=== PATIENT | female | born 1980 | race Caucasian/White ===

== ENCOUNTER 2018-08-04 22:33 | Emergency (ER) | payer BC ==
[~2018-08-04] VITALS: Ht 162.6 cm; Wt 88.7 kg
[2018-08-04] MEDS ORDERED: DESV100T PO (23:02)
[2018-08-04] MEDS ORDERED: PANT40TA3 PO (23:02)
[2018-08-04] MEDS ORDERED: lantus SQ (23:02)
[2018-08-04] MEDS ORDERED: humalog (23:02)
[2018-08-04] MEDS ORDERED: GLYB2.5T2 PO (23:02)
[2018-08-04] MEDS ORDERED: klonopin (23:02)
[2018-08-04] MEDS ORDERED: IV NORMAL SALINE 1,000ML 1,000 ML IV SCH (23:30)
[2018-08-04 23:31] LABS: BILIRUBIN,URINE NEG (NEG); CLARITY,URINE CLEAR; COLOR,URINE STRAW; GLUCOSE,URINE >=1000 mg/dL (NEG)
[2018-08-04 23:32] LABS: BACTERIA,URINE FEW /HPF (0-FEW); NITRITE,URINE NEG (NEG); RBC,URINE 0 /HPF (0-2); SQUAMOUS EPITHELIAL CELL,UR FEW /LPF; UROBILINOGEN,URINE 0.2 mg/dL (0.2 mg/dL); WBC,URINE OCC /HPF (0-4)
--- NOTE | 2018-08-05 00:07 | PHYS DOC ---
Adult General Chief Complaint Chief Complaint: ABDOMINAL PAIN HPI HPI Patient is a 38 year old female who presents with complaint of upper abdominal pain. Patient states her symptoms started earlier today. Patient states that she was recently hospitalized at [facility] for treatment of hyperglycemia. The patient states that she is type II diabetic and is currently on both oral medication and insulin. Patient has had history of diabetic complications requiring admission to the hospital for control of her sugar. This patient states that when her blood sugars run high she typically will get symptoms of upper abdominal pain. Her current pain is similar to previous episodes. Patient states the pain remains in her upper abdomen. Denies any known history of pancreatitis. No fevers. Patient does have nausea. Review of Systems Review of Systems Constitutional: Denies fever or chills [] Eyes: Denies change in visual acuity, redness, or eye pain [] HENT: Denies nasal congestion or sore throat [] Respiratory: Denies cough or shortness of breath [] Cardiovascular: Denies chest pain or edema[] GI: Abdominal pain, nausea, denies diarrhea[] : Denies dysuria or hematuria [] Musculoskeletal: Denies back pain or joint pain [] Integument: Denies rash or skin lesions [] Neurologic: Denies headache, focal weakness or sensory changes [] All other systems were reviewed and found to be within normal limits, except as documented in this note. Current Medications Current Medications Current Medications Medications (Trade) Dose Ordered Sig/Yoko Start Time Stop Time Status Last Admin Dose Admin Sodium Chloride 1,000 ml @ 1,000 mls/hr Q1H 08/04/18 23:30 08/05/18 00:29 Allergies Allergies Allergies Coded Allergies Type Severity Reaction Last Updated Verified No Known Drug Allergies 08/04/18 No Physical Exam Physical Exam Constitutional: Alert, afebrile, appears in [id number] discomfort. [] HENT: Normocephalic, atraumatic, bilateral external ears normal, oropharynx moist, no oral exudates, nose normal. [] Eyes: PERRLA, EOMI, conjunctiva normal, no discharge. [] Neck: Normal range of motion, no tenderness, supple, no stridor. [] Cardiovascular: Tachycardia, regular rhythm, no murmur [] Lungs & Thorax: Bilateral breath sounds clear to auscultation [] Abdomen: Bowel sounds normal, soft, epigastric tenderness to palpation, no guarding or rebound tenderness, no masses, no pulsatile masses. [] Skin: Warm, dry, no erythema, no rash. [] Back: No tenderness, no CVA tenderness. [] Extremities: No tenderness, no cyanosis, no clubbing, ROM intact, no edema. [] Neurologic: Alert and oriented X 3, normal motor function, normal sensory function, no focal deficits noted. [] Current Patient Data Vital Signs Vital Signs Date Time Temp Pulse Resp B/P (MAP) Pulse Ox O2 Delivery O2 Flow Rate FiO2 08/04/18 22:40 97.9 125 22 98 Room Air Lab Results Laboratory Tests Test 08/04/18 22:56 08/04/18 23:10 08/04/18 23:59 08/05/18 03:11 Glucose (Fingerstick) 556 mg/dL 230 mg/dL Urine Collection Type Void Urine Color Straw Urine Clarity Clear Urine pH 5.5 Urine Specific Nettie 1.010 Urine Protein Neg Urine Glucose (UA) >=1000 mg/dL Urine Ketones (Stick) Neg mg/dL Urine Blood Neg Urine Nitrite Neg Urine Bilirubin Neg Urine Urobilinogen Dipstick 0.2 mg/dL Urine Leukocyte Esterase Neg Urine RBC 0 /HPF Urine WBC Occ /HPF Urine Squamous Epithelial Cells Few /LPF Urine Transitional Epithelial Cells Occ /LPF Urine Renal Epithelial Cells Occ /LPF Urine Bacteria Few /HPF White Blood Count 13.4 x10^3/uL Red Blood Count 4.82 x10^6/uL Hemoglobin 14.9 g/dL Hematocrit 44.8 % Mean Corpuscular Volume 93 fL Mean Corpuscular Hemoglobin 31 pg Mean Corpuscular Hemoglobin Concent 33 g/dL Red Cell Distribution Width 15.3 % Platelet Count 256 x10^3/uL Neutrophils (%) (Auto) 66 % Lymphocytes (%) (Auto) 29 % Monocytes (%) (Auto) 5 % Neutrophils # (Auto) 8.8 x10^3uL Lymphocytes # (Auto) 4.0 x10^3/uL Monocytes # (Auto) 0.6 x10^3/uL Sodium Level 133 mmol/L Potassium Level 4.2 mmol/L Chloride Level 99 mmol/L Carbon Dioxide Level 27 mmol/L Anion Gap 7 Blood Urea Nitrogen 18 mg/dL Creatinine 1.1 mg/dL Estimated GFR (Cockcroft-Gault) 55.6 BUN/Creatinine Ratio 16 Glucose Level 533 mg/dL Calcium Level 9.3 mg/dL Total Bilirubin 0.6 mg/dL Aspartate Amino Transf (AST/SGOT) 46 U/L Alanine Aminotransferase (ALT/SGPT) 123 U/L Alkaline Phosphatase 109 U/L Total Protein 7.2 g/dL Albumin 3.4 g/dL Albumin/Globulin Ratio 0.9 Lipase 199 U/L Current Medications Medications (Trade) Dose Ordered Sig/Yoko Route PRN Reason Start Time Stop Time Status Last Admin Dose Admin Sodium Chloride 1,000 ml @ 1,000 mls/hr Q1H IV 08/04/18 23:30 08/05/18 00:29 DC 08/05/18 00:01 Sodium Chloride 1,000 ml @ 1,000 mls/hr 1X ONCE IV 08/05/18 00:30 08/05/18 01:29 DC 08/05/18 00:57 Morphine Sulfate (Morphine 4mg Syringe) 4 mg 1X ONCE IV 08/05/18 00:30 08/05/18 00:34 DC 08/05/18 00:32 Ondansetron HCl (Zofran) 4 mg 1X ONCE IV 08/05/18 00:30 08/05/18 00:34 DC 08/05/18 00:32 Insulin Human Regular (HumuLIN R VIAL) 10 unit 1X ONCE IV 08/05/18 01:30 08/05/18 01:31 DC 08/05/18 01:25 Ketorolac Tromethamine (Toradol 30mg Vial) 30 mg 1X ONCE IV 08/05/18 02:00 08/05/18 02:01 DC 08/05/18 01:39 EKG EKG Not performed[] Radiology/Procedures Radiology/Procedures Not performed[] Course & Med Decision Making Course & Med Decision Making Pertinent Labs and Imaging studies reviewed. (See chart for details) Patient was treated with 2 L of IV fluids and given 10 units of IV insulin. Patient's pain was treated with IV morphine and Toradol. On reevaluation, patient states her symptoms are much better and she appears to be comfortable at this time. Blood sugar is decreased to 230. Patient at this time is appropriate for outpatient therapy. Recommended to hold Lantus dose this evening due to additional doses of insulin being given. Advised to resume Lantus regimen tomorrow evening and to continue her home sliding scale treatment. Recommended follow-up in the next 3-5 days with patient's primary doctor and return to emergency department for any worsening symptoms. Patient voiced understanding and in agreement with treatment plan. Dragon Disclaimer Dragon Disclaimer This electronic medical record was generated, in whole or in part, using a voice recognition dictation system. Departure Departure: Impression: Primary Impression: Diabetes mellitus Disposition: HOME, SELF-CARE Condition: IMPROVED Referrals: EDIE MILLER (PCP) Patient Instructions: Type 2 Diabetes Mellitus, Adult Additional Instructions: Follow-up with your primary doctor in 3-5 days for reevaluation. Return to the emergency department for any worsening symptoms. Problem Qualifiers Primary Impression: Diabetes mellitus Diabetes mellitus type: type 2 Diabetes mellitus [facility] insulin use: with [facility] use Diabetes mellitus complication status: with hyperglycemia Qualified Codes: E11.65 - Type 2 diabetes mellitus with hyperglycemia; Z79.4 - [employer] (current) use of insulin HAI GAINES MD Aug 05, 2018 00:07
[2018-08-05 00:15] VITALS: BP 115/69
[2018-08-05] MEDS ORDERED: IV NORMAL SALINE 1,000ML 1,000 ML IV ONE (00:30)
[2018-08-05] MEDS ORDERED: ONDANSETRON PF 4 MG/2 ML VIAL. IV ONE (00:30)
[2018-08-05] MEDS ORDERED: MORPHINE SULFATE 4 MG/ML DISP.SYRIN. IV ONE (00:30)
[2018-08-05 00:43] LABS: HEMATOCRIT 44.8 % (36.0-47.0); HEMOGLOBIN 14.9 g/dL (12.0-15.5); MEAN CORPUSCULAR HEMOGLOBIN 31 pg (25-35); MEAN CORPUSCULAR HGB CONC 33 g/dL (31-37); MEAN CORPUSCULAR VOLUME 93 fL (79-100); PLATELET COUNT 256 x10^3/uL (140-400); RED BLOOD COUNT 4.82 x10^6/uL (3.50-5.40); RED CELL DISTRIBUTION WIDTH 15.3 % (11.5-14.5); WHITE BLOOD COUNT 13.4 x10^3/uL (4.0-11.0)
[2018-08-05 00:44] LABS: LYMPH % 29 % (24-48); MONO # 0.6 x10^3/uL (0.0-1.1); MONO % 5 % (0-9); NEUT # 8.8 x10^3uL (1.8-7.7); NEUT % 66 % (31-73)
[2018-08-05 00:51] LABS: ALBUMIN 3.4 g/dL (3.4-5.0); ALBUMIN/GLOBULIN RATIO 0.9 (1.0-1.7); CALCIUM 9.3 mg/dL (8.5-10.1); CREATININE 1.1 mg/dL (0.6-1.0); GFR 55.6; POTASSIUM 4.2 mmol/L (3.5-5.1); TOTAL BILIRUBIN 0.6 mg/dL (0.2-1.0); TOTAL PROTEIN 7.2 g/dL (6.4-8.2)
[2018-08-05] MEDS ORDERED: INSULIN REGULAR 100 UNIT/ML 3ML VIAL. IV ONE (01:30)
[2018-08-05] MEDS ORDERED: KETOROLAC 30 MG/ML VIAL. IV ONE (02:00)
== END 2018-08-05 03:42 | disposition home or self-care (01) ==
LOC: ER 22:33
DX: E11.65 Type 2 diabetes mellitus with hyperglycemia (principal); R10.13 Epigastric pain; Z79.4 Long term (current) use of insulin
CPT/HCPCS: 36415; 80053; 81001; 82947; 83690; 85025; 96361; 96374; 96375; 99284; J1815; J1885; J2270; J2405; J7030

== ENCOUNTER 2018-08-19 01:52 | Emergency (ER) | payer BC ==
[~2018-08-19] VITALS: Ht 162.6 cm; Wt 90.9 kg
[~2018-08-19 01:52] MED LIST: DESV100T PO; GLYB2.5T2 PO; PANT40TA3 PO; humalog; klonopin; lantus SQ
--- NOTE | 2018-08-19 01:54 | ED.ADGEN ---
Past History Past Medical History: Anxiety, Depression, Diabetes, Gallstones, GERD, Other Past Surgical History: Cholecystectomy, Hysterectomy, Tonsillectomy Alcohol Use: None Drug Use: None Adult General Chief Complaint Chief Complaint ".. I ve got abdomen pain...".. " Down here on the Rt... it been constant the last 2 hrs.. ".. " My blood sugars... are high.. " HPI HPI Patient is a 38 year old female who presents with above hx and complaints of 7 out of 10 right lower abdomen pain. Patient pain is been present 2 hours. Patient last ate at 1700 hrs. which consisted of chili. Patient reports normal stools. Patient denies any trauma or specific ill contacts. No recent travel. No history of bad food. Patient had multiple abdomen surgeries consisting of cholecystectomy and hysterectomy and oophorectomy. Pt. has possible hx prior renal stone. Patient does have a slight scale for her insulin. Review of Systems Review of Systems Constitutional: Denies fever or chills [] Eyes: Denies change in visual acuity, redness, or eye pain [] HENT: Denies nasal congestion or sore throat [] Respiratory: Denies cough or shortness of breath [] Cardiovascular: No additional information not addressed in HPI [] GI: Complaints of Rt. lower abdominal pain, nausea. denies, vomiting, bloody stools or diarrhea [] : Denies dysuria or hematuria [] Musculoskeletal: Denies back pain or joint pain [] Integument: Denies rash or skin lesions [] Neurologic: Denies headache, focal weakness or sensory changes [] Endocrine: Denies polyuria or polydipsia [] All other systems were reviewed and found to be within normal limits, except as documented in this note. Family History Family History Noncontributory Current Medications Current Medications Current Medications Medications (Trade) Dose Ordered Sig/Yoko Start Time Stop Time Status Last Admin Dose Admin Famotidine (Pepcid Vial) 20 mg 1X ONCE 08/19/18 02:30 08/19/18 02:31 DC 08/19/18 02:36 20 MG Ketorolac Tromethamine (Toradol 30mg Vial) 30 mg 1X ONCE 08/19/18 03:30 08/19/18 03:31 DC 08/19/18 03:31 30 MG Lactated Ringer's 1,000 ml @ 1,000 mls/hr Q1H 08/19/18 02:30 08/19/18 03:29 DC 08/19/18 02:36 1,000 MLS/HR Magnesium Hydroxide (Milk Of Magnesia) 2,400 mg 1X ONCE 08/19/18 03:30 08/19/18 03:31 DC 08/19/18 03:31 2,400 MG Ondansetron HCl (Zofran) 8 mg 1X ONCE 08/19/18 02:30 08/19/18 02:31 DC 08/19/18 02:37 8 MG See nursing for home meds Allergies Allergies Allergies Coded Allergies Type Severity Reaction Last Updated Verified No Known Drug Allergies 08/04/18 No Physical Exam Physical Exam Constitutional: Moderately acute distress, non-toxic appearance. [] HENT: Normocephalic, atraumatic, bilateral external ears normal, oropharynx moist, no oral exudates, nose normal. [] Eyes: PERRLA, EOMI, conjunctiva normal, no discharge. [] Neck: Normal range of motion, no tenderness, supple, no stridor. More than 17 inches circumference Cardiovascular: Tachycardia Heart rate regular rhythm, no murmur [] Lungs & Thorax: Bilateral breath sounds equal at apex with scattered wheezes on auscultation [] Abdomen: Bowel sounds decreased, soft, right lower quadrant tenderness, some mild percussion right flank tenderness, no masses, no pulsatile masses. [] Distended. Multiple old surgery scars. Rebound to right lower quadrant. Morbid obesity. Skin: Warm, dry, no erythema, no rash. [] Old surgery scars for Hidradenitis Suppurativa. Back: No tenderness, no CVA tenderness. [] Extremities: No tenderness, no cyanosis, no clubbing, ROM intact, bilateral ankle edema. [] Neurologic: Alert and oriented X 3, normal motor function, normal sensory function, no focal deficits noted. [] Psychologic: Affect anxious, judgement normal, mood normal. [] Current Patient Data Vital Signs Vital Signs Date Time Temp Pulse Resp B/P (MAP) Pulse Ox O2 Delivery O2 Flow Rate FiO2 08/19/18 02:00 98.1 104 22 99 Room Air Lab Results Laboratory Tests Test 08/19/18 02:05 08/19/18 02:23 08/19/18 03:59 Urine Collection Type Void Urine Color Yellow Urine Clarity Clear Urine pH 5.0 Urine Specific [place] 1.010 Urine Protein Neg (NEG-TRACE) Urine Glucose (UA) >=1000 mg/dL (NEG) Urine Ketones (Stick) Neg mg/dL (NEG) Urine Blood Trace (NEG) Urine Nitrite Neg (NEG) Urine Bilirubin Neg (NEG) Urine Urobilinogen Dipstick 0.2 mg/dL (0.2 mg/dL) Urine Leukocyte Esterase Neg (NEG) Urine RBC 6-10 /HPF (0-2) Urine WBC Occ /HPF (0-4) Urine Squamous Epithelial Cells Occ /LPF Urine Bacteria Few /HPF (0-FEW) Urine Mucus Slight /LPF Urine Opiates Screen Neg (NEG) Urine Methadone Screen Neg (NEG) Urine Barbiturates Neg (NEG) Urine Phencyclidine Screen Neg (NEG) Urine Amphetamine/Methamphetamine Neg (NEG) Urine Benzodiazepines Screen Neg (NEG) Urine Cocaine Screen Neg (NEG) Urine Cannabinoids Screen Neg (NEG) Urine Ethyl Alcohol Neg (NEG) White Blood Count 9.2 x10^3/uL (4.0-11.0) Red Blood Count 4.46 x10^6/uL (3.50-5.40) Hemoglobin 13.9 g/dL (12.0-15.5) Hematocrit 40.5 % (36.0-47.0) Mean Corpuscular Volume 91 fL (79-100) Mean Corpuscular Hemoglobin 31 pg (25-35) Mean Corpuscular Hemoglobin Concent 34 g/dL (31-37) Red Cell Distribution Width 15.5 % (11.5-14.5) H Platelet Count 208 x10^3/uL (140-400) Neutrophils (%) (Auto) 60 % (31-73) Lymphocytes (%) (Auto) 30 % (24-48) Monocytes (%) (Auto) 8 % (0-9) Eosinophils (%) (Auto) 2 % (0-3) Basophils (%) (Auto) 1 % (0-3) Neutrophils # (Auto) 5.5 x10^3uL (1.8-7.7) Lymphocytes # (Auto) 2.7 x10^3/uL (1.0-4.8) Monocytes # (Auto) 0.7 x10^3/uL (0.0-1.1) Eosinophils # (Auto) 0.2 x10^3/uL (0.0-0.7) Basophils # (Auto) 0.1 x10^3/uL (0.0-0.2) Prothrombin Time 10.4 SEC (9.4-11.4) Prothrombin Time INR 1.0 (0.9-1.1) PTT 24 SEC (23-33) Sodium Level 133 mmol/L (136-145) L Potassium Level 3.4 mmol/L (3.5-5.1) L Chloride Level 99 mmol/L (98-107) Carbon Dioxide Level 28 mmol/L (21-32) Anion Gap 6 (6-14) Blood Urea Nitrogen 9 mg/dL (7-20) Creatinine 1.0 mg/dL (0.6-1.0) Estimated GFR (Cockcroft-Gault) 62.1 Glucose Level 430 mg/dL (70-99) H Calcium Level 9.0 mg/dL (8.5-10.1) Total Bilirubin 0.5 mg/dL (0.2-1.0) Direct Bilirubin 0.1 mg/dL (0.0-0.2) Aspartate Amino Transferase (AST) 43 U/L (15-37) H Alanine Aminotransferase (ALT) 106 U/L (14-59) H Alkaline Phosphatase 100 U/L (46-116) Creatine Kinase 83 U/L (26-192) Troponin I Quantitative < 0.017 ng/mL (0-0.055) Total Protein 7.2 g/dL (6.4-8.2) Albumin 3.4 g/dL (3.4-5.0) Amylase Level 15 U/L (25-115) L Lipase 161 U/L (73-393) Glucose (Fingerstick) 228 mg/dL (70-99) H EKG EKG [] Radiology/Procedures Radiology/Procedures My interpretation of acute abdomen film shows no acute cardiopulmonary findings. No free air in the diaphragm. Increased stool throughout colon. Clips from previous surgeries. CT of abdomen shows no hydronephrosis. No obvious abscess. Normal appearance of the appendix. Does have a left adrenal adenoma. There is some enlargement of spleen and liver. See formal report when available. [] Course & Med Decision Making Course & Med Decision Making Pertinent Labs and Imaging studies reviewed. (See chart for details). Patient stay on a clear fluid diet. Patient push fruit juices with high potassium foods. Patient to take Tylenol and ibuprofen for pain. Patient follow- up primary care. Patient to continue insulin as per sliding scale and previous directions. Patient to follow-up primary care and review labs and x-ray findings. Patient return if any concerns. [] Final Impression Final Impression 1. Abdomen Pain[]- Rt. Lower 2. Constipation 3. DM - 430 Recheck 228. 4. Hyponatremia and Hypokalemia 5. Lt. Adrenal Myelolipoma 6. Hepatosplenomegaly 7. Mild hyponatremia 133- 8. Mild Hypokalemia 3.4 Dragon Disclaimer Dragon Disclaimer This electronic medical record was generated, in whole or in part, using a voice recognition dictation system. RICKIE LAMB MD Aug 19, 2018 01:54
[2018-08-19] MEDS: FAMOTIDINE 20 MG/2 ML VIAL IVP ONE (02:36)
[2018-08-19] MEDS: IV RINGERS SOLUTION,LACTATED 1,000 ML IV SCH (02:36)
[2018-08-19] MEDS: ONDANSETRON PF 4 MG/2 ML VIAL. IV ONE (02:37)
[2018-08-19 02:43] LABS: BASO # 0.1 x10^3/uL (0.0-0.2); BASO % 1 % (0-3); EOS # 0.2 x10^3/uL (0.0-0.7); EOS % 2 % (0-3); HEMATOCRIT 40.5 % (36.0-47.0); HEMOGLOBIN 13.9 g/dL (12.0-15.5); LYMPH # 2.7 x10^3/uL (1.0-4.8); LYMPH % 30 % (24-48); MEAN CORPUSCULAR HEMOGLOBIN 31 pg (25-35); MEAN CORPUSCULAR HGB CONC 34 g/dL (31-37); MEAN CORPUSCULAR VOLUME 91 fL (79-100); MONO # 0.7 x10^3/uL (0.0-1.1); MONO % 8 % (0-9); NEUT # 5.5 x10^3uL (1.8-7.7); NEUT % 60 % (31-73); PLATELET COUNT 208 x10^3/uL (140-400); RED BLOOD COUNT 4.46 x10^6/uL (3.50-5.40); RED CELL DISTRIBUTION WIDTH 15.5 % (11.5-14.5); WHITE BLOOD COUNT 9.2 x10^3/uL (4.0-11.0)
[2018-08-19 02:49] LABS: CLARITY,URINE CLEAR; COLOR,URINE YELLOW; GLUCOSE,URINE >=1000 mg/dL (NEG)
[2018-08-19 02:50] LABS: BACTERIA,URINE FEW /HPF (0-FEW); BILIRUBIN,URINE NEG (NEG); NITRITE,URINE NEG (NEG); SQUAMOUS EPITHELIAL CELL,UR OCC /LPF; UROBILINOGEN,URINE 0.2 mg/dL (0.2 mg/dL); WBC,URINE OCC /HPF (0-4)
[2018-08-19 02:54] LABS: BARBITURATES NEG (NEG); BENZODIAZEPINES NEG (NEG); CANNABINOIDS NEG (NEG); COCAINE NEG (NEG); METHADONE NEG (NEG); OPIATES NEG (NEG); PHENCYCLIDINE NEG (NEG)
[2018-08-19 02:56] LABS: ALBUMIN 3.4 g/dL (3.4-5.0); DIRECT BILIRUBIN 0.1 mg/dL (0.0-0.2); GFR 62.1; POTASSIUM 3.4 mmol/L (3.5-5.1); TOTAL BILIRUBIN 0.5 mg/dL (0.2-1.0); TOTAL PROTEIN 7.2 g/dL (6.4-8.2)
[2018-08-19 02:57] LABS: AMPHETAMINE/METHAMPHETAMINE NEG (NEG)
[2018-08-19] MEDS: KETOROLAC 30 MG/ML VIAL. IV ONE (03:31)
[2018-08-19] MEDS: MAGNESIUM HYDROXIDE 2,400 MG/30 ML ORAL.SUSP. PO ONE (03:31)
--- NOTE | 2018-08-19 03:43 | RAD ---
PQRS Compliance Statement: One or more of the following individualized dose reduction techniques were utilized for this examination: 1. Automated exposure control 2. Adjustment of the mA and/or kV according to patient size 3. Use of iterative reconstruction technique CT ABDOMEN PELVIS WO CONTRAST Clinical Indication: Right flank pain Comparison: None. Technique: Helical CT imaging of the abdomen and pelvis is performed without IV or oral contrast. Findings: Evaluation of solid organs and bowel is limited without oral and IV contrast, decreasing sensitivity for detection of pathology. The lung bases are clear. Cardiac size normal. Right hepatic lobe measures 23.6 cm. Right hepatic lobe is enlarged versus normal variant Jaxson lobe. Cholecystectomy. Spleen is mildly enlarged measuring 13.6 cm. Pancreas, abdominal aorta, and right adrenal gland are normal. There is a 2.8 cm left adrenal gland nodule that contains macroscopic fat, most compatible with a myelolipoma. There is no renal, ureteral, or bladder calculus. No perinephric stranding or hydronephrosis. No urinary bladder wall thickening. Heterogeneous material in the stomach, correlate to recent ingestions. No dilated small bowel. Redundant sigmoid colon. There is no colon wall thickening. There is moderate stool in the proximal colon. The appendix is normal. There are subcentimeter retroperitoneal lymph nodes. There is no adenopathy. No abdominal free fluid. Hysterectomy. No pelvic free fluid. Bones unremarkable. IMPRESSION: 1. No acute abdominal or pelvic abnormality. No obstructive uropathy. 2. Hepatosplenomegaly. 3. Left adrenal myelolipoma. Electronically signed by: Arun Cavanaugh MD (08/19/2018 3:39 AM) [id number]
[2018-08-19 04:00] VITALS: BP 134/72
--- NOTE | 2018-08-19 04:42 | RAD ---
ACUTE ABDOMEN SERIES History: Chest and abdominal pain. Comparison: None. Findings: Frontal chest and supine and upright views of the abdomen. Cardiomediastinal silhouette is normal. There is no pleural effusion or pneumothorax. The lungs are clear. No pneumoperitoneum is identified. No dilated air-filled loops of bowel are seen. Bowel gas pattern is nonobstructive. Cholecystectomy. There is prominent stool in the ascending and transverse colon. There are nondilated small bowel loops in the pelvis. There is hepatosplenomegaly. Bones unremarkable. IMPRESSION: 1. No acute cardiopulmonary process. 2. Nonobstructive bowel gas pattern. 3. Moderate stool in the proximal colon. Correlate for constipation. 4. Hepatosplenomegaly. Electronically signed by: Arun Cavanaugh MD (08/19/2018 4:39 AM) [id number]
== END 2018-08-19 04:12 | disposition home or self-care (01) ==
LOC: ER 01:52
DX: K59.00 Constipation, unspecified (principal); E11.9 Type 2 diabetes mellitus without complications; E87.1 Hypo-osmolality and hyponatremia; E87.6 Hypokalemia; D17.79 Benign lipomatous neoplasm of other sites; R16.2 Hepatomegaly with splenomegaly, not elsewhere classified; F41.9 Anxiety disorder, unspecified; F32.9 Major depressive disorder, single episode, unspecified; Z90.49 Acquired absence of other specified parts of digestive tract; Z90.710 Acquired absence of both cervix and uterus
CPT/HCPCS: 36415; 74022; 74176; 80048; 80076; 80307; 81001; 82150; 82550; 82947; 83690; 84484; 85025; 85610; 85730; 96374; 96375; 99285; J1885; J2405; J3490; J7120

== ENCOUNTER 2018-08-26 19:52 | Emergency (ER) | payer BC ==
[~2018-08-26] VITALS: Ht 162.6 cm; Wt 88.5 kg
--- NOTE | 2018-08-26 19:56 | ED.ADGEN ---
Past History Past Medical History: Anxiety, Depression, Diabetes, Gallstones, GERD, UTI, Other Past Surgical History: Cholecystectomy, Hysterectomy, Tonsillectomy Alcohol Use: None Drug Use: None Adult General Chief Complaint Chief Complaint ".. I ve been having abd. pain .. nausea . .vomiting .. and diarrhea ... 3 weeks.;.. it every time I eat.. really bad at 3:00 pm .. I seen Dr. French... and thought it might be my pancreas.. ..." HPI HPI Patient is a 38 year old female who presents with generalized abdomen pain. Patient reports repeated episodes of nausea and vomiting and diarrhea for the past 3 weeks. Patient denies any bad food or travel or specific ill contacts. Patient normally follows Dr. Ash.. And travel or specific ill contacts. No history of intake bad food. Patient has history of diabetes. Has had previous cholecystectomy and hysterectomy. Patient denies any trauma. Patient has been eating. Review of Systems Review of Systems Constitutional: Denies fever or chills [] Eyes: Denies change in visual acuity, redness, or eye pain [] HENT: Denies nasal congestion or sore throat [] Respiratory: Denies cough or shortness of breath [] Cardiovascular: No additional information not addressed in HPI [] GI: Complaints of generalized abdominal pain, nausea, vomiting, and diarrhea [] : Denies dysuria or hematuria [] Musculoskeletal: Denies back pain or joint pain [] Integument: Denies rash or skin lesions [] Neurologic: Denies headache, focal weakness or sensory changes [] Endocrine: Denies polyuria or polydipsia [] All other systems were reviewed and found to be within normal limits, except as documented in this note. Family History Family History Noncontributory Current Medications Current Medications Current Medications Medications (Trade) Dose Ordered Sig/Yoko Start Time Stop Time Status Last Admin Dose Admin Famotidine (Pepcid Vial) 20 mg 1X ONCE 08/26/18 20:30 08/26/18 20:31 UNV Info (Do NOT chart on this entry -- for MONITORING) 1 each PRN DAILY PRN 08/26/18 20:30 08/27/18 00:19 DC Iohexol (Omnipaque 240 Mg/ml) 30 ml 1X ONCE 08/26/18 20:30 11/17/18 20:31 DC 08/26/18 20:30 30 ML Iohexol (Omnipaque 300 Mg/ml) 75 ml 1X ONCE 08/26/18 20:30 08/26/18 20:31 DC 08/26/18 21:50 75 ML Ketorolac Tromethamine (Toradol 30mg Vial) 30 mg 1X ONCE 08/26/18 20:30 08/26/18 20:31 DC 08/26/18 20:52 30 MG Lactated Ringer's 1,000 ml @ 1,000 mls/hr Q1H 08/26/18 20:23 08/26/18 21:22 DC Morphine Sulfate (Morphine 10mg Syringe) 10 mg 1X ONCE 08/26/18 22:45 08/26/18 22:47 DC 08/26/18 22:51 10 MG Ondansetron HCl (Zofran) 8 mg 1X ONCE 08/26/18 20:30 08/26/18 20:31 UNV Pantoprazole Sodium (Protonix Vial) 40 mg 1X ONCE 08/26/18 20:00 08/26/18 20:01 DC 08/26/18 20:57 40 MG Trimethoprim/ Sulfamethoxazole (Bactrim Ds) 1 tab STK-MED ONCE 08/27/18 00:06 08/27/18 00:19 DC Allergies Allergies Allergies Coded Allergies Type Severity Reaction Last Updated Verified No Known Drug Allergies 08/26/18 No Physical Exam Physical Exam Constitutional: Moderately acute distress, non-toxic appearance. [] HENT: Normocephalic, atraumatic, bilateral external ears normal, oropharynx moist, no oral exudates, nose normal. [] Eyes: PERRLA, EOMI, conjunctiva normal, no discharge. [] Neck: Normal range of motion, no tenderness, supple, no stridor. [] Cardiovascular: Tachycardia Heart rate regular rhythm, no murmur [] Lungs & Thorax: Bilateral breath sounds clear to auscultation [] Abdomen: Bowel sounds normal, soft, generalized tenderness, no masses, no pulsatile masses. [Old surgery scar. Declines rectal exam at this time. No true rebound. Obese Skin: Warm, dry, no erythema, no rash. [] Back: No tenderness, no CVA tenderness. [] Extremities: No tenderness, no cyanosis, no clubbing, ROM intact, no edema. [] Neurologic: Alert and oriented X 3, normal motor function, normal sensory function, no focal deficits noted. [] Psychologic: Affect anxious, judgement normal, mood normal. [] Current Patient Data Vital Signs Vital Signs Date Time Temp Pulse Resp B/P (MAP) Pulse Ox O2 Delivery O2 Flow Rate FiO2 08/27/18 00:15 18 136/71 (92) 08/26/18 22:51 Room Air 08/26/18 22:26 91 96 08/26/18 20:00 98.5 Lab Results Laboratory Tests Test 08/26/18 20:25 White Blood Count 11.7 x10^3/uL (4.0-11.0) H Red Blood Count 4.59 x10^6/uL (3.50-5.40) Hemoglobin 13.9 g/dL (12.0-15.5) Hematocrit 42.0 % (36.0-47.0) Mean Corpuscular Volume 92 fL (79-100) Mean Corpuscular Hemoglobin 30 pg (25-35) Mean Corpuscular Hemoglobin Concent 33 g/dL (31-37) Red Cell Distribution Width 14.9 % (11.5-14.5) H Platelet Count 270 x10^3/uL (140-400) Neutrophils (%) (Auto) 57 % (31-73) Lymphocytes (%) (Auto) 32 % (24-48) Monocytes (%) (Auto) 9 % (0-9) Eosinophils (%) (Auto) 2 % (0-3) Basophils (%) (Auto) 1 % (0-3) Neutrophils # (Auto) 6.6 x10^3uL (1.8-7.7) Lymphocytes # (Auto) 3.7 x10^3/uL (1.0-4.8) Monocytes # (Auto) 1.0 x10^3/uL (0.0-1.1) Eosinophils # (Auto) 0.2 x10^3/uL (0.0-0.7) Basophils # (Auto) 0.1 x10^3/uL (0.0-0.2) Prothrombin Time 10.3 SEC (9.4-11.4) Prothrombin Time INR 1.0 (0.9-1.1) PTT 23 SEC (23-33) Urine Collection Type Unknown Urine Color Yellow Urine Clarity Hazy Urine pH 5.5 Urine Specific [place] >=1.030 Urine Protein Neg (NEG-TRACE) Urine Glucose (UA) 250 mg/dL (NEG) Urine Ketones (Stick) Neg mg/dL (NEG) Urine Blood Trace (NEG) Urine Nitrite Neg (NEG) Urine Bilirubin Neg (NEG) Urine Urobilinogen Dipstick 0.2 mg/dL (0.2 mg/dL) Urine Leukocyte Esterase Trace (NEG) Urine RBC 1-2 /HPF (0-2) Urine WBC 5-10 /HPF (0-4) Urine Squamous Epithelial Cells Many /LPF Urine Bacteria 0 /HPF (0-FEW) Urine Mucus Mod /LPF Sodium Level 140 mmol/L (136-145) Potassium Level 4.2 mmol/L (3.5-5.1) Chloride Level 102 mmol/L (98-107) Carbon Dioxide Level 31 mmol/L (21-32) Anion Gap 7 (6-14) Blood Urea Nitrogen 8 mg/dL (7-20) Creatinine 0.7 mg/dL (0.6-1.0) Estimated GFR (Cockcroft-Gault) 93.6 Glucose Level 224 mg/dL (70-99) H Calcium Level 9.2 mg/dL (8.5-10.1) Total Bilirubin 0.4 mg/dL (0.2-1.0) Direct Bilirubin 0.1 mg/dL (0.0-0.2) Aspartate Amino Transferase (AST) 72 U/L (15-37) H Alanine Aminotransferase (ALT) 146 U/L (14-59) H Alkaline Phosphatase 103 U/L (46-116) Creatine Kinase 100 U/L (26-192) Troponin I Quantitative < 0.017 ng/mL (0-0.055) Total Protein 7.4 g/dL (6.4-8.2) Albumin 3.5 g/dL (3.4-5.0) Amylase Level 20 U/L (25-115) L EKG EKG My interpretation EKG shows a sinus rhythm at 95 bpm. There is mild leftward axis. Ice acute STEMI of contralateral changes.[] Radiology/Procedures Radiology/Procedures CT of abdomen shows mild hepatosplenomegaly. Left adrenal myelolipoma unchanged and distended stomach.[] Course & Med Decision Making Course & Med Decision Making Pertinent Labs and Imaging studies reviewed. (See chart for details). She stay on a clear fluid diet only for 2 days. No solids or milk products. Must allow bowel rest. Follow-up primary care. Return if any concerns. Take Bactrim DS twice day for urinary tract infection. Push vitamin C drinks. Must have reexam if no improvement [] Final Impression Final Impression 1. Abdomen Pain 2. Nausea, Vomiting and Diarrhea[] 3. Diabetes 4. Leukocytosis 5. Elevated AST and ALT 6. Urinary tract infection Dragon Disclaimer Dragon Disclaimer This electronic medical record was generated, in whole or in part, using a voice recognition dictation system. RICKIE LAMB MD Aug 26, 2018 19:56
[2018-08-26] MEDS ORDERED: IV RINGERS SOLUTION,LACTATED 1,000 ML IV SCH ×2 (19:57→20:23)
[2018-08-26] MEDS ORDERED: ONDANSETRON PF 4 MG/2 ML VIAL. IV ONE ×2 (20:00→20:30)
[2018-08-26] MEDS ORDERED: FAMOTIDINE 20 MG/2 ML VIAL IVP ONE ×2 (20:00→20:30)
[2018-08-26] MEDS ORDERED: PANTOPRAZOLE IV 40 MG VIAL. IVP ONE (20:00)
[2018-08-26] MEDS ORDERED: IOHEXOL 300 MG/ML 75 ML VIAL. IV ONE (20:30)
[2018-08-26] MEDS ORDERED: CONTRAST GIVEN MC PRN (20:30)
[2018-08-26] MEDS ORDERED: IOHEXOL 240 MG/ML 50ML VIAL. PO ONE (20:30)
[2018-08-26] MEDS ORDERED: KETOROLAC 30 MG/ML VIAL. IV ONE (20:30)
[2018-08-26 20:43] LABS: BASO # 0.1 x10^3/uL (0.0-0.2); BASO % 1 % (0-3); EOS # 0.2 x10^3/uL (0.0-0.7); EOS % 2 % (0-3); HEMOGLOBIN 13.9 g/dL (12.0-15.5); LYMPH # 3.7 x10^3/uL (1.0-4.8); LYMPH % 32 % (24-48); MEAN CORPUSCULAR HEMOGLOBIN 30 pg (25-35); MEAN CORPUSCULAR HGB CONC 33 g/dL (31-37); MEAN CORPUSCULAR VOLUME 92 fL (79-100); MONO % 9 % (0-9); NEUT # 6.6 x10^3uL (1.8-7.7); NEUT % 57 % (31-73); PLATELET COUNT 270 x10^3/uL (140-400); RED BLOOD COUNT 4.59 x10^6/uL (3.50-5.40); RED CELL DISTRIBUTION WIDTH 14.9 % (11.5-14.5); WHITE BLOOD COUNT 11.7 x10^3/uL (4.0-11.0)
[2018-08-26 20:51] LABS: BACTERIA,URINE 0 /HPF (0-FEW); BILIRUBIN,URINE NEG (NEG); CLARITY,URINE HAZY; COLOR,URINE YELLOW; GLUCOSE,URINE 250 mg/dL (NEG); NITRITE,URINE NEG (NEG); SQUAMOUS EPITHELIAL CELL,UR MANY /LPF; UROBILINOGEN,URINE 0.2 mg/dL (0.2 mg/dL)
[2018-08-26 20:57] LABS: ALBUMIN 3.5 g/dL (3.4-5.0); CALCIUM 9.2 mg/dL (8.5-10.1); CREATININE 0.7 mg/dL (0.6-1.0); DIRECT BILIRUBIN 0.1 mg/dL (0.0-0.2); GFR 93.6; POTASSIUM 4.2 mmol/L (3.5-5.1); TOTAL BILIRUBIN 0.4 mg/dL (0.2-1.0); TOTAL PROTEIN 7.4 g/dL (6.4-8.2)
--- NOTE | 2018-08-26 21:31 | RAD ---
EXAM: Frontal view of the chest, AP views of the abdomen in upright and supine positions. CLINICAL INDICATION: ACUTE AB SERIES for upper mid abdominal pain severe since this afternoon COMPARISON: 08/19/2018 FINDINGS and IMPRESSION: The heart is not enlarged. Mediastinal and hilar contours are normal. No focal parenchymal airspace opacity. No pleural effusion or pneumothorax. No abnormal small or large bowel dilatation. Moderate colonic stool content. No abnormal soft tissue mass effect. No suspicious calcifications are seen. No free intraperitoneal gas. Cholecystectomy clips are seen. Electronically signed by: Jose Newman MD (08/26/2018 9:27 PM) [facility]
--- NOTE | 2018-08-26 21:37 | EKG ---
[address] [address] Test Date: 2018-08-26 Test Time: 21:13:48 Pat Name: SANFORD SEXTON Department: Room: Gender: F Fire Code Inspector: : [id number] Requested By: RICKIE LAMB Order Number: [id number] Reading MD: Peter Nunn MD Measurements Intervals [place] Rate: 95 P: -89 OK: 106 QRS: -15 QRSD: 82 T: 28 QT: 356 QTc: 451 Interpretive Statements SINUS RHYTHM Electronically Signed On 08-28-2018 14:27:08 ADMISSIONS SPECIALIST by Peter Nunn MD
--- NOTE | 2018-08-26 22:19 | RAD ---
Examination: CT of the abdomen pelvis with IV contrast HISTORY: History of upper abdominal pain COMPARISON: 08/19/2018 Technique: Axial CT images of the abdomen pelvis were performed with oral and IV contrast. Coronal and sagittal reformats are performed. Exposure: One or more of the following individualized dose reduction techniques were utilized for this examination: 1. Automated exposure control 2. Adjustment of the mA and/or kV according to patient size 3. Use of iterative reconstruction technique FINDINGS: Minimal bibasilar lung atelectasis. No evidence of free air identified in the abdomen. Mild hepatomegaly. There is mild decreased attenuation noted throughout the liver likely hepatic steatosis. The spleen is mildly enlarged. The visualized right adrenal gland grossly appears unremarkable. There is a fatty density identified in the left adrenal gland likely adrenal myelolipoma similar to prior exam. The stomach is moderately distended. Cholecystectomy clips identified. The small bowel is nondilated. Appendix is normal. Feces and gas noted in the colon. Urinary bladder is mildly distended. The bilateral kidneys enhance symmetrically. The caliber of the aorta grossly appears unremarkable. No evidence of lytic bony destructive lesion. IMPRESSION: 1. Mild hepatosplenomegaly. 2. Left adrenal myelolipoma unchanged. 3. Mild distended moderately distended stomach. Electronically signed by: Pasha Irwin MD (08/26/2018 10:16 PM) [facility]
[2018-08-26] MEDS ORDERED: MORPHINE SULFATE 10 MG/ML SYRINGE. SQ ONE (22:45)
[2018-08-27] MEDS ORDERED: SULF1TAB24 PO (00:05)
[2018-08-27] MEDS ORDERED: ONDA8TAB12 PO (00:05)
[2018-08-27] MEDS ORDERED: SMZ/TMP 800/160MG TABLET. PO ONE ×2 (00:06)
[2018-08-27 00:15] VITALS: BP 136/71
== END 2018-08-27 00:18 | disposition home or self-care (01) ==
LOC: ER 19:52
DX: N39.0 Urinary tract infection, site not specified (principal); R11.2 Nausea with vomiting, unspecified; R19.7 Diarrhea, unspecified; D72.829 Elevated white blood cell count, unspecified; F41.9 Anxiety disorder, unspecified; F32.9 Major depressive disorder, single episode, unspecified; E11.9 Type 2 diabetes mellitus without complications; K21.9 Gastro-esophageal reflux disease without esophagitis; Z87.440 Personal history of urinary (tract) infections; Z90.89 Acquired absence of other organs; Z90.49 Acquired absence of other specified parts of digestive tract; Z90.710 Acquired absence of both cervix and uterus
CPT/HCPCS: 36415; 74022; 74177; 80048; 80061; 80076; 81001; 82150; 82550; 84484; 85025; 85610; 85730; 87086; 93005; 96372; 96374; 96375; 99285; C9113; J1885; J2270; J2405; J3490; J7120; Q9966; Q9967

== ENCOUNTER 2018-09-06 19:15 | Emergency (ER) | payer BC ==
[~2018-09-06] VITALS: Ht 162.6 cm; Wt 89.8 kg
[~2018-09-06 19:15] MED LIST changes: +ONDA8TAB12 PO; +SULF1TAB24 PO
[2018-09-06] MEDS ORDERED: IV NORMAL SALINE 1,000ML 1,000 ML IV ONE (20:30)
[2018-09-06] MEDS ORDERED: ONDANSETRON PF 4 MG/2 ML VIAL. IV ONE (20:45)
[2018-09-06] MEDS ORDERED: MORPHINE SULFATE 4 MG/ML DISP.SYRIN. IV ONE (20:45)
[2018-09-06] MEDS ORDERED: IOHEXOL 300 MG/ML 75 ML VIAL. IV ONE (20:45)
--- NOTE | 2018-09-06 21:11 | ED.ADGEN ---
Past History Past Medical History: Anxiety, Depression, Diabetes, Gallstones, GERD, UTI, Other Past Surgical History: Cholecystectomy, Hysterectomy, Tonsillectomy, Other Alcohol Use: None Drug Use: None Adult General Chief Complaint Chief Complaint Lower abdominal pain HPI HPI Patient is a 38-year-old female presents with diffuse intermittent lower abdominal pain for the past several days with reports of constipation with inability to have a bowel movement despite taking multiple laxatives. Pain is described as severe cramping is worse with palpation and movement. She is unable to find a position of comfort. She denies nausea, vomiting, flank pain. No fever chills, sweats. No urinary frequency urgency. Patient is able to pass gas. Past surgical history includes hysterectomy and cholecystectomy.[] Review of Systems Review of Systems Review symptoms as per history of present illness. All other review symptoms are negative. All other systems were reviewed and found to be within normal limits, except as documented in this note. Current Medications Current Medications Current Medications Medications (Trade) Dose Ordered Sig/Yoko Start Time Stop Time Status Last Admin Dose Admin Iohexol (Omnipaque 300 Mg/ml) 75 ml 1X ONCE 09/06/18 20:45 09/06/18 20:46 DC 09/06/18 21:08 75 ML Morphine Sulfate (Morphine 4mg Syringe) 4 mg 1X ONCE 09/06/18 20:45 09/06/18 20:46 DC 09/06/18 20:57 4 MG Ondansetron HCl (Zofran) 4 mg 1X ONCE 09/06/18 20:45 09/06/18 20:46 DC 09/06/18 20:56 4 MG Sodium Chloride 1,000 ml @ 1,000 mls/hr 1X ONCE 09/06/18 20:30 09/06/18 21:29 DC 09/06/18 20:56 1,000 MLS/HR Allergies Allergies Allergies Coded Allergies Type Severity Reaction Last Updated Verified No Known Drug Allergies 08/26/18 No Physical Exam Physical Exam Constitutional: Well developed, well nourished, no distress secondary to pain.. [] HENT: Normocephalic, atraumatic, bilateral external ears normal, oropharynx moist, no oral exudates, nose normal. [] Eyes: PERRLA, EOMI, conjunctiva normal, no discharge. [] Neck: Normal range of motion, no tenderness, supple, no stridor. [] Cardiovascular:Heart rate regular rhythm, no murmur [] Lungs & Thorax: Bilateral breath sounds clear to auscultation [] Abdomen: Bowel sounds normal, soft, nondistended, normal bowel sounds. Diffuse lower abdominal pain, tenderness, no rebound rigidity or guarding.[] Skin: Warm, dry, no erythema, no rash. [] Back: No tenderness, no CVA tenderness. [] Extremities: No tenderness, no cyanosis, no clubbing, ROM intact, no edema. [] Neurologic: Alert and oriented X 3, normal motor function, normal sensory function, no focal deficits noted. [] Psychologic: Affect normal, judgement normal, mood normal. [] Current Patient Data Vital Signs Vital Signs Date Time Temp Pulse Resp B/P (MAP) Pulse Ox O2 Delivery O2 Flow Rate FiO2 09/06/18 20:57 18 95 Room Air Lab Results Laboratory Tests Test 09/06/18 19:35 09/06/18 20:45 Urine Collection Type Unknown Urine Color Yellow Urine Clarity Hazy Urine pH 5.0 Urine Specific [place] 1.010 Urine Protein Neg (NEG-TRACE) Urine Glucose (UA) Neg mg/dL (NEG) Urine Ketones (Stick) Neg mg/dL (NEG) Urine Blood Large (NEG) Urine Nitrite Neg (NEG) Urine Bilirubin Neg (NEG) Urine Urobilinogen Dipstick 0.2 mg/dL (0.2 mg/dL) Urine Leukocyte Esterase Small (NEG) Urine RBC >40 /HPF (0-2) Urine WBC Rare /HPF (0-4) Urine Squamous Epithelial Cells Many /LPF Urine Bacteria Mod /HPF (0-FEW) White Blood Count 10.3 x10^3/uL (4.0-11.0) Red Blood Count 4.54 x10^6/uL (3.50-5.40) Hemoglobin 14.2 g/dL (12.0-15.5) Hematocrit 40.7 % (36.0-47.0) Mean Corpuscular Volume 90 fL (79-100) Mean Corpuscular Hemoglobin 31 pg (25-35) Mean Corpuscular Hemoglobin Concent 35 g/dL (31-37) Red Cell Distribution Width 15.2 % (11.5-14.5) H Platelet Count 203 x10^3/uL (140-400) Neutrophils (%) (Auto) 60 % (31-73) Lymphocytes (%) (Auto) 32 % (24-48) Monocytes (%) (Auto) 7 % (0-9) Eosinophils (%) (Auto) 1 % (0-3) Basophils (%) (Auto) 1 % (0-3) Neutrophils # (Auto) 6.1 x10^3uL (1.8-7.7) Lymphocytes # (Auto) 3.3 x10^3/uL (1.0-4.8) Monocytes # (Auto) 0.7 x10^3/uL (0.0-1.1) Eosinophils # (Auto) 0.1 x10^3/uL (0.0-0.7) Basophils # (Auto) 0.1 x10^3/uL (0.0-0.2) Sodium Level 138 mmol/L (136-145) Potassium Level 3.5 mmol/L (3.5-5.1) Chloride Level 102 mmol/L (98-107) Carbon Dioxide Level 29 mmol/L (21-32) Anion Gap 7 (6-14) Blood Urea Nitrogen 11 mg/dL (7-20) Creatinine 0.7 mg/dL (0.6-1.0) Estimated GFR (Cockcroft-Gault) 93.6 BUN/Creatinine Ratio 16 (6-20) Glucose Level 83 mg/dL (70-99) Calcium Level 9.2 mg/dL (8.5-10.1) Total Bilirubin 0.4 mg/dL (0.2-1.0) Aspartate Amino Transferase (AST) 65 U/L (15-37) H Alanine Aminotransferase (ALT) 155 U/L (14-59) H Alkaline Phosphatase 122 U/L (46-116) H Total Protein 7.4 g/dL (6.4-8.2) Albumin 3.6 g/dL (3.4-5.0) Albumin/Globulin Ratio 0.9 (1.0-1.7) L EKG EKG [] Radiology/Procedures Radiology/Procedures [CT abdomen pelvis: No acute findings.] Course & Med Decision Making Course & Med Decision Making Pertinent Labs and Imaging studies reviewed. (See chart for details) [Symptoms resolved with treatment. Suspected passed kidney stone. Recommend supportive care with PCP follow-up. Return precautions reviewed. ] Final Impression Final Impression [1. Abdominal pain 2. hematuria ] Katerine Disclaimer Dragrena Disclaimer This electronic medical record was generated, in whole or in part, using a voice recognition dictation system. JOSE DE JESUS DO Sep 06, 2018 21:11
[2018-09-06 21:13] LABS: BASO # 0.1 x10^3/uL (0.0-0.2); BASO % 1 % (0-3); EOS # 0.1 x10^3/uL (0.0-0.7); EOS % 1 % (0-3); HEMATOCRIT 40.7 % (36.0-47.0); HEMOGLOBIN 14.2 g/dL (12.0-15.5); LYMPH # 3.3 x10^3/uL (1.0-4.8); LYMPH % 32 % (24-48); MEAN CORPUSCULAR HEMOGLOBIN 31 pg (25-35); MEAN CORPUSCULAR HGB CONC 35 g/dL (31-37); MEAN CORPUSCULAR VOLUME 90 fL (79-100); MONO # 0.7 x10^3/uL (0.0-1.1); MONO % 7 % (0-9); NEUT # 6.1 x10^3uL (1.8-7.7); NEUT % 60 % (31-73); PLATELET COUNT 203 x10^3/uL (140-400); RED BLOOD COUNT 4.54 x10^6/uL (3.50-5.40); RED CELL DISTRIBUTION WIDTH 15.2 % (11.5-14.5); WHITE BLOOD COUNT 10.3 x10^3/uL (4.0-11.0)
[2018-09-06 21:19] LABS: BILIRUBIN,URINE NEG (NEG); CLARITY,URINE HAZY; COLOR,URINE YELLOW; GLUCOSE,URINE NEG (NEG); NITRITE,URINE NEG (NEG); UROBILINOGEN,URINE 0.2 mg/dL (0.2 mg/dL)
[2018-09-06 21:20] LABS: BACTERIA,URINE MOD /HPF (0-FEW); RBC,URINE >40 /HPF (0-2); SQUAMOUS EPITHELIAL CELL,UR MANY /LPF; WBC,URINE RARE /HPF (0-4)
[2018-09-06 21:27] LABS: ALBUMIN 3.6 g/dL (3.4-5.0); ALBUMIN/GLOBULIN RATIO 0.9 (1.0-1.7); CALCIUM 9.2 mg/dL (8.5-10.1); CREATININE 0.7 mg/dL (0.6-1.0); GFR 93.6; POTASSIUM 3.5 mmol/L (3.5-5.1); TOTAL BILIRUBIN 0.4 mg/dL (0.2-1.0); TOTAL PROTEIN 7.4 g/dL (6.4-8.2)
--- NOTE | 2018-09-06 21:47 | RAD ---
CT SCAN OF THE ABDOMEN AND PELVIS WITH IV CONTRAST. History: Lower abdominal pain and vomiting Comparison:August 26, 2018. Procedure: Contiguous axial images of the abdomen and pelvis were performed after the administration of 75 cc of Omni 300 IV contrast and oral contrast. CT Abdomen with contrast: Findings: Liver: Unremarkable Spleen: Unremarkable Pancreas: Unremarkable Adrenal Glands: The left adrenal myolipoma was seen previously Kidneys: Unremarkable There is no mass or lymphadenopathy. There is no free air. There is no free fluid. There has been prior cholecystectomy. Impression: No acute findings. End Impression CT Pelvis with Contrast: Findings: The urinary bladder appears normal. There is no free fluid. There is no lymphadenopathy. The appendix is normal. Impression: No acute findings. PQRS Compliance Statement: One or more of the following individualized dose reduction techniques were utilized for this examination: 1. Automated exposure control 2. Adjustment of the mA and/or kV according to patient size 3. Use of iterative reconstruction technique Electronically signed by: Sudeep Middleton III, MD (09/06/2018 9:43 PM) [facility]
[2018-09-06] MEDS ORDERED: ONDA4TAB7 PO (21:57)
[2018-09-06] MEDS ORDERED: HYDR-3165 PO (21:57)
[2018-09-06 22:10] VITALS: BP 130/78
== END 2018-09-06 22:10 | disposition home or self-care (01) ==
LOC: ER 19:15
DX: R31.9 Hematuria, unspecified (principal); R10.84 Generalized abdominal pain; K59.00 Constipation, unspecified; F41.9 Anxiety disorder, unspecified; F32.9 Major depressive disorder, single episode, unspecified; E11.9 Type 2 diabetes mellitus without complications; K21.9 Gastro-esophageal reflux disease without esophagitis; N39.0 Urinary tract infection, site not specified; Z90.49 Acquired absence of other specified parts of digestive tract; Z90.710 Acquired absence of both cervix and uterus
CPT/HCPCS: 36415; 74177; 80053; 81001; 85025; 87086; 96374; 96375; 99284; J2270; J2405; Q9967; J7030

== ENCOUNTER 2018-09-14 22:01 | Emergency (ER) | payer BC ==
[~2018-09-14] VITALS: Ht 162.6 cm; Wt 89.9 kg
[~2018-09-14 22:01] MED LIST changes: +HYDR-3165 PO; +ONDA4TAB7 PO
[2018-09-14] MEDS ORDERED: CEPH-264 PO (22:36)
[2018-09-14 22:40] VITALS: BP 122/58
--- NOTE | 2018-09-14 22:41 | PHYS DOC ---
Adult General Chief Complaint Chief Complaint arm redness HPI HPI 38 years old female who was admitted to the hospital for ileus discharged home noticed the redness the side of the IV minimal tenderness she called her primary care provider who advised her to come to the ER for evaluation Review of Systems Review of Systems Constitutional: Denies fever or chills [] Eyes: Denies change in visual acuity, redness, or eye pain [] HENT: Denies nasal congestion or sore throat [] Respiratory: Denies cough or shortness of breath [] Cardiovascular: No additional information not addressed in HPI [] GI: Denies abdominal pain, nausea, vomiting, bloody stools or diarrhea [] : Denies dysuria or hematuria [] Musculoskeletal: Denies back pain or joint pain [] Integument: Denies rash or skin lesions [] Neurologic: Denies headache, focal weakness or sensory changes [] Endocrine: Denies polyuria or polydipsia [] All other systems were reviewed and found to be within normal limits, except as documented in this note. Allergies Allergies Allergies Coded Allergies Type Severity Reaction Last Updated Verified No Known Drug Allergies 08/26/18 No Physical Exam Physical Exam Constitutional: Well developed, well nourished, no acute distress, non-toxic appearance. [] HENT: Normocephalic, atraumatic, bilateral external ears normal, oropharynx moist, no oral exudates, nose normal. [] Eyes: PERRLA, EOMI, conjunctiva normal, no discharge. [] Neck: Normal range of motion, no tenderness, supple, no stridor. [] Cardiovascular:Heart rate regular rhythm, no murmur [] Lungs & Thorax: Bilateral breath sounds clear to auscultation [] Abdomen: Bowel sounds normal, soft, no tenderness, no masses, no pulsatile masses. [] Skin: 52 cm tender swollen warm red on the left forearm[] Back: No tenderness, no CVA tenderness. [] Extremities: No tenderness, no cyanosis, no clubbing, ROM intact, no edema. [] Neurologic: Alert and oriented X 3, normal motor function, normal sensory function, no focal deficits noted. [] Psychologic: Affect normal, judgement normal, mood normal. [] Current Patient Data Vital Signs Vital Signs Date Time Temp Pulse Resp B/P (MAP) Pulse Ox O2 Delivery O2 Flow Rate FiO2 09/14/18 22:01 98.3 80 20 97 Room Air EKG EKG [] Radiology/Procedures Radiology/Procedures [] Course & Med Decision Making Course & Med Decision Making Pertinent Labs and Imaging studies reviewed. (See chart for details) [] Final Impression Final Impression [] Problems: (1) Superficial venous thrombosis of left arm Dragon Disclaimer Dragon Disclaimer This electronic medical record was generated, in whole or in part, using a voice recognition dictation system. OSMANY SALDANA MD Sep 14, 2018 22:41
== END 2018-09-14 22:40 | disposition home or self-care (01) ==
LOC: ER 22:01
DX: I82.612 Acute embolism and thrombosis of superficial veins of left upper extremity (principal)
CPT/HCPCS: 99283

== ENCOUNTER 2018-09-25 11:28 | Emergency (ER) | payer BC ==
[~2018-09-25] VITALS: Ht 162.6 cm; Wt 87.5 kg
[~2018-09-25 11:28] MED LIST changes: +CEPH-264 PO
[2018-09-25] MEDS ORDERED: IV NORMAL SALINE 1,000ML 1,000 ML IV SCH (11:45)
--- NOTE | 2018-09-25 11:53 | PHYS DOC ---
Past History Past Medical History: Anxiety, CAD, Depression, Diabetes, Gallstones, GERD, Renal Disease, UTI Past Surgical History: Cholecystectomy, Hysterectomy, Tonsillectomy Smoking: Cigarettes, Less than 1pk/day Additional Smoking Information: 1/2 PACK/DAY Alcohol Use: None Drug Use: None Adult General Chief Complaint Chief Complaint: ABDOMINAL PAIN [facility] HPI Patient is a 38 year old female who presents with complaining of abdominal pain. Patient states she woke up this morning because of severe abdominal pain at periumbilical area and rated her pain 9/10. Patient states the pain is constant and localizing in right lower quadrant as an aching pain without radiation. Patient complaining of nausea without vomiting and denies urinary symptoms, diarrhea or constipation, fever and chills, vaginal bleeding or discharge. Patient rated her pain 7/10 and states she took ibuprofen at 8 AM without improvement of her pain. Patient had bowel movement this morning without change of her pain. Patient states she had the same pain previously before her hysterectomy and bilateral oophorectomy. Review of Systems Review of Systems Constitutional: Denies fever or chills [] Eyes: Denies change in visual acuity, redness, or eye pain [] HENT: Denies nasal congestion or sore throat [] Respiratory: Denies cough or shortness of breath [] Cardiovascular: No additional information not addressed in HPI [] GI: Reports abdominal pain, nausea, denies vomiting, bloody stools or diarrhea [ ] : Denies dysuria or hematuria [] Musculoskeletal: Denies back pain or joint pain [] Integument: Denies rash or skin lesions [] Neurologic: Denies headache, focal weakness or sensory changes [] Endocrine: Denies polyuria or polydipsia [] All other systems were reviewed and found to be within normal limits, except as documented in this note. Allergies Allergies Allergies Coded Allergies Type Severity Reaction Last Updated Verified levofloxacin Allergy Unknown 09/25/18 Yes Physical Exam Physical Exam Constitutional: Well developed, well nourished, mild distress, non-toxic appearance. [] HENT: Normocephalic, atraumatic,oropharynx moist. Eyes: PERRLA, EOMI, conjunctiva normal, no discharge. [] Neck: Normal range of motion, no tenderness, supple, no stridor. [] Cardiovascular:Heart rate regular rhythm, no murmur [] Lungs & Thorax: Bilateral breath sounds clear to auscultation [] Abdomen: Bowel sounds normal, soft, no tenderness, right lower quadrant guarding no masses, no pulsatile masses, small fat containing umbilical hernia without tenderness. [] Skin: Warm, dry, no erythema, no rash. [] Back: No tenderness, no CVA tenderness. [] Extremities: No tenderness, no cyanosis, no clubbing, ROM intact, no edema. [] Neurologic: Alert and oriented X 3, normal motor function, normal sensory function, no focal deficits noted. [] Psychologic: Affect anxious,, judgement normal, mood normal. [] Current Patient Data Vital Signs Vital Signs Date Time Temp Pulse Resp B/P (MAP) Pulse Ox O2 Delivery O2 Flow Rate FiO2 09/25/18 11:35 98.2 91 16 98 Room Air EKG EKG [] Radiology/Procedures Radiology/Procedures [address] [address] IMAGING REPORT Signed PATIENT: SANFORD SEXTON ACCOUNT: [id number] : 1980 LOCATION: ER AGE: 38 SEX: F EXAM STATUS: REG ER ORD. PHYSICIAN: MEET BROWN MD REASON: sudden onset of right lower quadrant pain PROCEDURE: CT ABDOMEN PELVIS WO CONTRAST EXAM: CT Abdomen and Pelvis without IV contrast CLINICAL HISTORY: RIGHT FLANK PAIN. COMPARISON: 08/29/2018, 08/26/2018 TECHNIQUE: Helical CT of the abdomen and pelvis without intravenous contrast. Axial, coronal and sagittal reformatted images were generated. PQRS compliance statement - One or more of the following individualized dose reduction techniques were utilized for this study: 1. Automated exposure control 2. Adjustment of the mA and/or kV according to patient size 3. Use of iterative reconstruction technique FINDINGS: Lack of intravenous contrast limits evaluation of solid organs, vasculature, and lymph nodes. Lower chest: Dependent opacities bilaterally likely scarring/atelectasis. Abdomen and Pelvis: Relative hepatic hypoattenuation likely hepatic steatosis. The liver is mildly enlarged measuring 20.5 cm in length. No biliary ductal dilatation. Cholecystectomy clips are seen. Spleen is enlarged measuring 14 cm in length. Adrenal glands and pancreas are unremarkable. Kidneys are normal in size and shape. No focal renal lesion. No hydronephrosis. No definite renal tract calculi. No bladder calculi. The appendix is normal. Moderate colonic stool content is seen. No small or large bowel dilatation. There has been a hysterectomy. No abdominal or pelvic ascites. No abdominal or pelvic lymphadenopathy. Small fat-containing periumbilical hernia is seen. Bones: No definite aggressive osseous lesion is identified. IMPRESSION: 1. Hepatic hypoattenuation may be seen with mild fatty liver. Mild associated hepatomegaly. 2. Mild splenomegaly. 3. No renal tract calculi. 4. Post cholecystectomy changes without biliary ductal dilatation. 5. Small fat-containing periumbilical hernia. Electronically signed by: Jose Elaine MD (09/25/2018 12:48 PM) [facility] DICTATED AND SIGNED BY: JOSE ELAINE MD DATE: 09/25/18 1241 CC: MEET BROWN MD; EDIE MILLER ~ Course & Med Decision Making Course & Med Decision Making Pertinent Labs and Imaging studies reviewed. (See chart for details) Evaluation of patient in ER showed 38-year-old female patient with complaining of abdominal pain since this morning. Patient had small medical hernia without sign of strangulation or tenderness. ct of abdomen and pelvis was unremarkable acute problem. labs did not show acute finding. patient felt better with treatment in ER. She instructed to continue home antiacid medication and follow up with her primary care physician. Dragon Disclaimer Dragon Disclaimer This electronic medical record was generated, in whole or in part, using a voice recognition dictation system. Departure Departure: Impression: Primary Impression: Abdominal pain Additional Impressions: Umbilical hernia Tobacco abuse Tobacco abuse counseling Disposition: HOME, SELF-CARE (at 1310) Condition: IMPROVED Referrals: EDIE MILLER (PCP) Patient Instructions: Abdominal Pain, Smoking Cessation, Tips For Success Additional Instructions: Drink plenty of liquids Follow-up with your primary care physician in 3-5 days Return to ER if not getting better Scripts [Percogesic] No Conflict Check 1 TAB PO QID PRN for PAIN, #14 Prov: MEET BROWN MD 09/25/18 Problem Qualifiers MEET BROWN MD Sep 25, 2018 11:53
[2018-09-25] MEDS ORDERED: ONDANSETRON PF 4 MG/2 ML VIAL. IV ONE (12:10)
[2018-09-25] MEDS ORDERED: KETOROLAC 30 MG/ML VIAL. IV ONE (12:10)
[2018-09-25 12:28] LABS: BASO # 0.1 x10^3/uL (0.0-0.2); BASO % 1 % (0-3); EOS # 0.2 x10^3/uL (0.0-0.7); EOS % 2 % (0-3); HEMATOCRIT 43.6 % (36.0-47.0); HEMOGLOBIN 14.7 g/dL (12.0-15.5); LYMPH % 25 % (24-48); MEAN CORPUSCULAR HEMOGLOBIN 31 pg (25-35); MEAN CORPUSCULAR HGB CONC 34 g/dL (31-37); MEAN CORPUSCULAR VOLUME 91 fL (79-100); MONO # 0.6 x10^3/uL (0.0-1.1); MONO % 5 % (0-9); NEUT # 7.9 x10^3uL (1.8-7.7); NEUT % 67 % (31-73); PLATELET COUNT 260 x10^3/uL (140-400); RED BLOOD COUNT 4.82 x10^6/uL (3.50-5.40); RED CELL DISTRIBUTION WIDTH 14.8 % (11.5-14.5); WHITE BLOOD COUNT 11.8 x10^3/uL (4.0-11.0)
[2018-09-25 12:31] LABS: AMPHETAMINE/METHAMPHETAMINE NEG (NEG); BARBITURATES NEG (NEG); BENZODIAZEPINES NEG (NEG); CANNABINOIDS NEG (NEG); COCAINE NEG (NEG); METHADONE NEG (NEG); OPIATES NEG (NEG); PHENCYCLIDINE NEG (NEG)
[2018-09-25 12:39] LABS: BILIRUBIN,URINE NEG (NEG); CLARITY,URINE CLOUDY; COLOR,URINE YELLOW; GLUCOSE,URINE NEG (NEG)
[2018-09-25 12:39] LABS: ALBUMIN 3.9 g/dL (3.4-5.0); CALCIUM 9.2 mg/dL (8.5-10.1); CREATININE 0.7 mg/dL (0.6-1.0); GFR 93.6; TOTAL BILIRUBIN 0.3 mg/dL (0.2-1.0); TOTAL PROTEIN 7.9 g/dL (6.4-8.2)
[2018-09-25 12:40] LABS: BACTERIA,URINE MOD /HPF (0-FEW); NITRITE,URINE NEG (NEG); SQUAMOUS EPITHELIAL CELL,UR MANY /LPF; UROBILINOGEN,URINE 0.2 mg/dL (0.2 mg/dL)
--- NOTE | 2018-09-25 12:52 | RAD ---
EXAM: CT Abdomen and Pelvis without IV contrast CLINICAL HISTORY: RIGHT FLANK PAIN. COMPARISON: 08/29/2018, 08/26/2018 TECHNIQUE: Helical CT of the abdomen and pelvis without intravenous contrast. Axial, coronal and sagittal reformatted images were generated. PQRS compliance statement - One or more of the following individualized dose reduction techniques were utilized for this study: 1. Automated exposure control 2. Adjustment of the mA and/or kV according to patient size 3. Use of iterative reconstruction technique FINDINGS: Lack of intravenous contrast limits evaluation of solid organs, vasculature, and lymph nodes. Lower chest: Dependent opacities bilaterally likely scarring/atelectasis. Abdomen and Pelvis: Relative hepatic hypoattenuation likely hepatic steatosis. The liver is mildly enlarged measuring 20.5 cm in length. No biliary ductal dilatation. Cholecystectomy clips are seen. Spleen is enlarged measuring 14 cm in length. Adrenal glands and pancreas are unremarkable. Kidneys are normal in size and shape. No focal renal lesion. No hydronephrosis. No definite renal tract calculi. No bladder calculi. The appendix is normal. Moderate colonic stool content is seen. No small or large bowel dilatation. There has been a hysterectomy. No abdominal or pelvic ascites. No abdominal or pelvic lymphadenopathy. Small fat-containing periumbilical hernia is seen. Bones: No definite aggressive osseous lesion is identified. IMPRESSION: 1. Hepatic hypoattenuation may be seen with mild fatty liver. Mild associated hepatomegaly. 2. Mild splenomegaly. 3. No renal tract calculi. 4. Post cholecystectomy changes without biliary ductal dilatation. 5. Small fat-containing periumbilical hernia. Electronically signed by: Jose Newman MD (09/25/2018 12:48 PM) [facility]
[2018-09-25 13:05] VITALS: BP 103/59
[2018-09-25] MEDS ORDERED: Percogesic PO (13:06)
[2018-09-25] MEDS ORDERED: ORPHENADRINE CITRATE 60 MG/2 ML VIAL. IV ONE (13:15)
== END 2018-09-25 13:12 | disposition home or self-care (01) ==
LOC: ER 11:28
DX: K42.9 Umbilical hernia without obstruction or gangrene (principal); F17.200 Nicotine dependence, unspecified, uncomplicated; F41.9 Anxiety disorder, unspecified; E11.9 Type 2 diabetes mellitus without complications; K21.9 Gastro-esophageal reflux disease without esophagitis; I25.10 Atherosclerotic heart disease of native coronary artery without angina pectoris; F32.9 Major depressive disorder, single episode, unspecified; Z71.6 Tobacco abuse counseling; Z86.73 Personal history of transient ischemic attack (TIA), and cerebral infarction without residual deficits; Z87.440 Personal history of urinary (tract) infections; Z90.49 Acquired absence of other specified parts of digestive tract; Z90.710 Acquired absence of both cervix and uterus; Z88.1 Allergy status to other antibiotic agents
CPT/HCPCS: 36415; 74176; 80053; 80307; 81001; 83690; 85025; 87086; 96374; 96375; 99284; J1885; J2360; J2405; J7030

== ENCOUNTER 2018-10-05 20:51 | Inpatient (IN) | payer BC ==
[~2018-10-05] VITALS: Ht 162.6 cm; Wt 90.9 kg
[~2018-10-05 20:51] MED LIST changes: +Percogesic PO
--- NOTE | 2018-10-05 20:56 | ED.ADGEN ---
Past History Past Medical History: Anxiety, CAD, Depression, Diabetes, Gallstones, GERD, Renal Disease, UTI Past Surgical History: Cholecystectomy, Hysterectomy, Tonsillectomy Smoking: Cigarettes, Less than 1pk/day Alcohol Use: None Drug Use: None Adult General Chief Complaint Chief Complaint "My sugars were over 400 at home...." HPI HPI Patient is a 38 year old female who presents with above hx and complaints of hyperglycemia and abd. pain. Pt. recent taken off all diabetic meds at , because they felt she was not diabetic. Pt. having generalize abd. pain. Pt. denies travel, specific ill contacts, bad food or trauma. Pt. normally follows at Dr. French. Pt. sugars at home have been over 400 in spite of re starting her insulin slide orders. Pt. does localize pain to Rt. lower quadrant. Review of Systems Review of Systems Constitutional: Denies fever or chills [] Eyes: Denies change in visual acuity, redness, or eye pain [] HENT: Denies nasal congestion or sore throat [] Respiratory: Denies cough or shortness of breath [] Cardiovascular: No additional information not addressed in HPI [] GI: complaints of abdominal pain, nausea. Denies, vomiting, bloody stools or diarrhea [] : Denies dysuria or hematuria [] Musculoskeletal: Denies back pain or joint pain [] Integument: Denies rash or skin lesions [] Neurologic: Denies headache, focal weakness or sensory changes [] Endocrine: Denies polyuria or polydipsia [] Complaints of hyperglycemia All other systems were reviewed and found to be within normal limits, except as documented in this note. Family History Family History DM Current Medications Current Medications Current Medications Medications (Trade) Dose Ordered Sig/Yoko Start Time Stop Time Status Last Admin Dose Admin Insulin Human Regular 150 unit/ Sodium Chloride 151.5 ml @ 0 mls/hr 1X ONCE 10/05/18 21:45 10/05/18 21:46 DC 10/05/18 22:31 5 MLS/HR Iohexol (Omnipaque 240 Mg/ml) 30 ml 1X ONCE 10/05/18 21:45 10/05/18 21:46 DC 10/05/18 22:58 30 ML Iohexol (Omnipaque 300 Mg/ml) 75 ml 1X ONCE 10/05/18 21:45 10/05/18 21:46 DC 10/05/18 22:58 75 ML Morphine Sulfate (Morphine 10mg Syringe) 10 mg 1X ONCE 10/05/18 21:45 10/05/18 21:46 DC 10/05/18 22:03 10 MG Ondansetron HCl (Zofran) 8 mg 1X ONCE 10/05/18 21:45 10/05/18 21:46 DC 10/05/18 22:01 8 MG Sodium Chloride 150 ml @ As Directed STK-MED ONCE 10/05/18 21:56 10/05/18 21:58 DC See Nursing for home meds Allergies Allergies Allergies Coded Allergies Type Severity Reaction Last Updated Verified levofloxacin Allergy Unknown 09/25/18 Yes Physical Exam Physical Exam Constitutional: Moderatley acute distress, non-toxic appearance. [] HENT: Normocephalic, atraumatic, bilateral external ears normal, oropharynx moist, no oral exudates, nose normal. []Tongue stud Eyes: PERRLA, EOMI, conjunctiva normal, no discharge. [] Neck: Normal range of motion, no tenderness, supple, no stridor. [] Cardiovascular:Heart rate regular rhythm, no murmur [] Lungs & Thorax: Bilateral breath sounds equal at apex with scattered wheezes on auscultation [] Abdomen: Bowel sounds normal, soft, Rt. Lower quadrant tenderness, no masses, no pulsatile masses. [] Old surgery scars. Obese. Skin: Warm, dry, no erythema, no rash. [] Tattoos. Back: No tenderness, no CVA tenderness. [] Extremities: No tenderness, no cyanosis, no clubbing, ROM intact, no edema. [] Neurologic: Alert and oriented X 3, normal motor function, normal sensory function, no focal deficits noted. [] Psychologic: Affect anxious, judgement normal, mood normal. [] Current Patient Data Vital Signs Vital Signs Date Time Temp Pulse Resp B/P (MAP) Pulse Ox O2 Delivery O2 Flow Rate FiO2 10/05/18 23:28 81 22 111/63 (79) 95 10/05/18 22:03 Room Air 10/05/18 20:58 98.2 Lab Results Laboratory Tests Test 10/05/18 21:02 10/05/18 21:08 10/05/18 21:20 10/05/18 21:38 Urine Collection Type Unknown Urine Color Straw Urine Clarity Clear Urine pH 5.5 Urine Specific [place] 1.010 Urine Protein Neg (NEG-TRACE) Urine Glucose (UA) >=1000 mg/dL (NEG) Urine Ketones (Stick) Neg mg/dL (NEG) Urine Blood Trace (NEG) Urine Nitrite Neg (NEG) Urine Bilirubin Neg (NEG) Urine Urobilinogen Dipstick 0.2 mg/dL (0.2 mg/dL) Urine Leukocyte Esterase Neg (NEG) Urine RBC Occ /HPF (0-2) Urine WBC Occ /HPF (0-4) Urine Squamous Epithelial Cells Mod /LPF Urine Bacteria 0 /HPF (0-FEW) Urine Opiates Screen Neg (NEG) Urine Methadone Screen Neg (NEG) Urine Barbiturates Neg (NEG) Urine Phencyclidine Screen Neg (NEG) Urine Amphetamine/Methamphetamine Neg (NEG) Urine Benzodiazepines Screen Neg (NEG) Urine Cocaine Screen Neg (NEG) Urine Cannabinoids Screen Neg (NEG) Urine Ethyl Alcohol Neg (NEG) Glucose (Fingerstick) 440 mg/dL (70-99) H White Blood Count 7.8 x10^3/uL (4.0-11.0) Red Blood Count 4.37 x10^6/uL (3.50-5.40) Hemoglobin 13.5 g/dL (12.0-15.5) Hematocrit 39.9 % (36.0-47.0) Mean Corpuscular Volume 91 fL (79-100) Mean Corpuscular Hemoglobin 31 pg (25-35) Mean Corpuscular Hemoglobin Concent 34 g/dL (31-37) Red Cell Distribution Width 14.4 % (11.5-14.5) Platelet Count 205 x10^3/uL (140-400) Neutrophils (%) (Auto) 62 % (31-73) Lymphocytes (%) (Auto) 28 % (24-48) Monocytes (%) (Auto) 7 % (0-9) Eosinophils (%) (Auto) 2 % (0-3) Basophils (%) (Auto) 1 % (0-3) Neutrophils # (Auto) 4.9 x10^3uL (1.8-7.7) Lymphocytes # (Auto) 2.2 x10^3/uL (1.0-4.8) Monocytes # (Auto) 0.5 x10^3/uL (0.0-1.1) Eosinophils # (Auto) 0.1 x10^3/uL (0.0-0.7) Basophils # (Auto) 0.1 x10^3/uL (0.0-0.2) Sodium Level 135 mmol/L (136-145) L Potassium Level 3.8 mmol/L (3.5-5.1) Chloride Level 99 mmol/L (98-107) Carbon Dioxide Level 28 mmol/L (21-32) Anion Gap 8 (6-14) Blood Urea Nitrogen 11 mg/dL (7-20) Creatinine 0.9 mg/dL (0.6-1.0) Estimated GFR (Cockcroft-Gault) 70.1 Glucose Level 471 mg/dL (70-99) H Calcium Level 9.2 mg/dL (8.5-10.1) Magnesium Level 1.8 mg/dL (1.8-2.4) Total Bilirubin 0.3 mg/dL (0.2-1.0) Direct Bilirubin 0.1 mg/dL (0.0-0.2) Aspartate Amino Transferase (AST) 47 U/L (15-37) H Alanine Aminotransferase (ALT) 130 U/L (14-59) H Alkaline Phosphatase 102 U/L (46-116) Total Protein 7.4 g/dL (6.4-8.2) Albumin 3.6 g/dL (3.4-5.0) Lipase 179 U/L (73-393) POC Urine HCG, Qualitative hcg negative (Negative) EKG EKG [] Radiology/Procedures Radiology/Procedures My interpretation of Acute abd. shows no acute cardiopul. changes, no free under the diaph. non specific bowel gas pattern. CT of abdomen shows no acute surgical processes. See formal report when available. [] Course & Med Decision Making Course & Med Decision Making Pertinent Labs and Imaging studies reviewed. (See chart for details). Pt. admitted to Dr. French for further tx. and evaluation. [] Final Impression Final Impression 1. DM- Hyperglycemia[] 440 2. Abdomen Pain 3. Elevated ALT Dragon Disclaimer Dragon Disclaimer This electronic medical record was generated, in whole or in part, using a voice recognition dictation system. RICKIE LAMB MD Oct 05, 2018 20:56
[2018-10-05] MEDS ORDERED: IV NORMAL SALINE 1,000ML 1,000 ML IV ONE (21:30)
[2018-10-05] MEDS ORDERED: IV NORMAL SALINE 1,000ML 1,000 ML IV SCH (21:30)
[2018-10-05] MEDS ORDERED: MORPHINE SULFATE 10 MG/ML SYRINGE. SQ ONE (21:45)
[2018-10-05] MEDS ORDERED: IOHEXOL 240 MG/ML 50ML VIAL. PO ONE (21:45)
[2018-10-05] MEDS ORDERED: ONDANSETRON PF 4 MG/2 ML VIAL. IV ONE (21:45)
[2018-10-05] MEDS ORDERED: INSULIN REGULAR VIAL 150 UNIT in 0.9 % SODIUM CHLORIDE 150ML 150 ML IV ONE (21:45)
[2018-10-05] MEDS ORDERED: IOHEXOL 300 MG/ML 75 ML VIAL. IV ONE (21:45)
[2018-10-05 21:46] LABS: BASO # 0.1 x10^3/uL (0.0-0.2); BASO % 1 % (0-3); EOS # 0.1 x10^3/uL (0.0-0.7); EOS % 2 % (0-3); HEMATOCRIT 39.9 % (36.0-47.0); HEMOGLOBIN 13.5 g/dL (12.0-15.5); LYMPH # 2.2 x10^3/uL (1.0-4.8); LYMPH % 28 % (24-48); MEAN CORPUSCULAR HEMOGLOBIN 31 pg (25-35); MEAN CORPUSCULAR HGB CONC 34 g/dL (31-37); MEAN CORPUSCULAR VOLUME 91 fL (79-100); MONO # 0.5 x10^3/uL (0.0-1.1); MONO % 7 % (0-9); NEUT # 4.9 x10^3uL (1.8-7.7); NEUT % 62 % (31-73); PLATELET COUNT 205 x10^3/uL (140-400); RED BLOOD COUNT 4.37 x10^6/uL (3.50-5.40); RED CELL DISTRIBUTION WIDTH 14.4 % (11.5-14.5); WHITE BLOOD COUNT 7.8 x10^3/uL (4.0-11.0)
[2018-10-05] MEDS ORDERED: 0.9 % SODIUM CHLORIDE 150ML 150 ML ONE (21:56)
[2018-10-05 22:02] LABS: ALBUMIN 3.6 g/dL (3.4-5.0); CALCIUM 9.2 mg/dL (8.5-10.1); CREATININE 0.9 mg/dL (0.6-1.0); DIRECT BILIRUBIN 0.1 mg/dL (0.0-0.2); GFR 70.1; MAGNESIUM 1.8 mg/dL (1.8-2.4); POTASSIUM 3.8 mmol/L (3.5-5.1); TOTAL BILIRUBIN 0.3 mg/dL (0.2-1.0); TOTAL PROTEIN 7.4 g/dL (6.4-8.2)
--- NOTE | 2018-10-05 22:11 | RAD ---
EXAM: Abdomen acute complete. HISTORY: Pain. COMPARISON: 09/25/2018. FINDINGS: A frontal view of the chest and frontal upright and supine views of the abdomen are obtained. There is no infiltrate, pleural effusion or pneumothorax. The heart is normal in size. No abnormally dilated loop of bowel seen. There are cholecystectomy clips. There is mild hepatosplenomegaly. IMPRESSION: 1. No acute pulmonary finding. 2. Nonobstructive bowel gas pattern. Electronically signed by: Ale Paredes MD (10/05/2018 10:07 PM) [facility]
[2018-10-05 22:12] LABS: AMPHETAMINE/METHAMPHETAMINE NEG (NEG); BARBITURATES NEG (NEG); BENZODIAZEPINES NEG (NEG); CANNABINOIDS NEG (NEG); COCAINE NEG (NEG); METHADONE NEG (NEG); OPIATES NEG (NEG); PHENCYCLIDINE NEG (NEG)
[2018-10-05 22:33] LABS: BACTERIA,URINE 0 /HPF (0-FEW); BILIRUBIN,URINE NEG (NEG); CLARITY,URINE CLEAR; COLOR,URINE STRAW; GLUCOSE,URINE >=1000 mg/dL (NEG); NITRITE,URINE NEG (NEG); RBC,URINE OCC /HPF (0-2); SQUAMOUS EPITHELIAL CELL,UR MOD /LPF; UROBILINOGEN,URINE 0.2 mg/dL (0.2 mg/dL); WBC,URINE OCC /HPF (0-4)
--- NOTE | 2018-10-05 23:38 | RAD ---
INDICATION: Omni 300 75cc: Rt. lower quadrant pain, nausea, elevated blood sugar x 2 days COMPARISON: September 25, 2018 TECHNIQUE: Axial CT images obtained through the abdomen and pelvis with contrast. One or more of the following individualized dose reduction techniques were utilized for this examination: 1. Automated exposure control; 2. Adjustment of the mA and/or kV according to patient size; 3. Use of iterative reconstruction technique. FINDINGS: There is some prominent subcutaneous vessels at the left anterior chest wall. Abdominal aorta is not grossly aneurysmal. Liver is mildly low attenuation. Postcholecystectomy changes. Small fat-containing umbilical hernia. No peripancreatic fluid collection. Spleen unremarkable. Suspected fat-containing lesion left adrenal gland measuring up to 28 mm which can be seen with causes such as mild low lipoma. No left-sided hydronephrosis. Urinary bladder partially distended at time of exam. No right-sided hydronephrosis. Colonic diverticulosis. No periappendiceal inflammation. No dilated loops of bowel to suggest obstruction. IMPRESSION: 1. No evidence of bowel obstruction or periappendiceal inflammation. 2. Liver is mildly low attenuation. Nonspecific but can be seen with fatty infiltration. 3. The urinary bladder is somewhat distended at time of exam. 4. Suspected left adrenal myelolipoma Electronically signed by: Pratik Martinez MD (10/05/2018 11:34 PM) [facility]
[2018-10-05] MEDS ORDERED: MAGNESIUM HYDROXIDE 2,400 MG/30 ML ORAL.SUSP. PO ONE (23:45)
[2018-10-06] MEDS ORDERED: INSULIN REGULAR VIAL 150 UNIT in 0.9 % SODIUM CHLORIDE 150ML 150 ML IV ONE ×2
[2018-10-06] MEDS ORDERED: DEXTROSE 50% 25 GM / 50ML DISP.SYRIN. IV PRN
[2018-10-06 02:08] VITALS: BP 120/64
[2018-10-06] MEDS: ONDANSETRON PF 4 MG/2 ML VIAL. IV PRN ×2 (03:02→09:48)
[2018-10-06 03:10] VITALS: BP 115/75
[2018-10-06] MEDS ORDERED: INSU200I4 SUBCUT (05:24)
[2018-10-06] MEDS ORDERED: CLON0.5T11 PO (05:24)
[2018-10-06] MEDS ORDERED: BREX1TAB PO (05:24)
[2018-10-06] MEDS ORDERED: TRAZ-85 PO (05:24)
[2018-10-06] MEDS ORDERED: LINA72CA PO (05:24)
[2018-10-06] MEDS ORDERED: DICL50TA4 PO (05:24)
[2018-10-06] MEDS ORDERED: INSU100I11 SUBCUT (05:24)
[2018-10-06] MEDS ORDERED: DEXT20CA PO (05:24)
[2018-10-06 06:19] VITALS: BP 90/51
[2018-10-06 06:23] LABS: HEMOGLOBIN 13.2 g/dL (12.0-15.5); RED BLOOD COUNT 4.34 x10^6/uL (3.50-5.40); RED CELL DISTRIBUTION WIDTH 14.7 % (11.5-14.5); WHITE BLOOD COUNT 7.9 x10^3/uL (4.0-11.0)
[2018-10-06 06:29] LABS: CREATININE 0.7 mg/dL (0.6-1.0); GFR 93.6; POTASSIUM 3.7 mmol/L (3.5-5.1)
[2018-10-06] MEDS ORDERED: PANTOPRAZOLE 40 MG TABLET. PO SCH (09:00)
[2018-10-06] MEDS ORDERED: LINACLOTIDE PO SCH (09:00)
[2018-10-06] MEDS ORDERED: NON FORMULARY ITEM (Brexpiprazole (Rexulti) 1 TAB) PO SCH (09:00)
[2018-10-06] MEDS: glyBURIDE 5 MG TABLET PO SCH ×2 (09:00→09:22)
[2018-10-06] MEDS ORDERED: DICLOFENAC SODIUM 25 MG TABLET.DR PO PRN (09:00)
[2018-10-06] MEDS ORDERED: clonazePAM 0.5 MG TABLET PO SCH ×2 (09:00)
[2018-10-06] MEDS ORDERED: DESVENLAFAXINE SUCCINATE 25 MG TAB.ER.24H PO SCH (09:30)
[2018-10-06] MEDS: INSULIN LISPRO 300 UNITS/3 ML INSULN.PEN. SQ SCH ×2 (09:54→12:58)
[2018-10-06] MEDS ORDERED: LACTOBACILLUS RHAMNOSUS GG 1 CAPSULE. PO SCH (11:00)
[2018-10-06] MEDS ORDERED: ERYTHROMYCIN BASE 250 MG TABLET PO SCH (11:30)
[2018-10-06] MEDS ORDERED: METOCLOPRAMIDE 5 MG TABLET PO SCH (11:30)
[2018-10-06 11:50] VITALS: BP 98/54
[2018-10-06] MEDS ORDERED: METO10TA81 PO (14:28)
--- NOTE | 2018-10-06 19:31 | HP ---
ADMIT DATE: 10/05/2018 HISTORY OF PRESENT ILLNESS: A 38-year-old female with a history of diabetes, came in through the Emergency Room apparently because she was hypoglycemic, at that time they took, she has taken some of her medications for her blood sugar. As a result of this, the patient noted that her sugars start to be over 400 and as a result of this, she was just taking a sliding scale. She also had some pain in her right lower quadrant. She felt somewhat weakened and lightheaded, came in through the Emergency Room and was admitted for observation for further evaluation and treatment of the multiple complaints as well as her elevated blood sugar. HOME MEDICATIONS: Include diclofenac 50 mg t.i.d., Klonopin 0.5 t.i.d., Pristiq ER 100 mg, trazodone, Protonix 40, Reglan 5, Linzess 1 cap p.o. b.i.d., Tresiba 30 units subcutaneous, Humalog on a sliding scale. ALLERGIES: LEVOTHYROXINE. PAST MEDICAL HISTORY: Includes gallbladder disease, cholecystectomy, abdominal pain, nausea, cervical cancer, uterine anomaly, uterine prolapse, cervical anomaly, history of cervical cancer, hysterectomy, diabetes, liver disease, nonalcoholic fatty liver cancer. COURSE OF INFLUENZA VACCINE: Up-to-date. FAMILY HISTORY: Noncontributory. SOCIAL HISTORY: The patient denies smoking, alcohol or drug use. REVIEW OF SYSTEMS: The patient has generalized weakness. Denies any chest pain or shortness of breath. Does have abdominal pain, some mild nausea. Denies any melena, hematochezia, or hematemesis. Neurologically stable. PHYSICAL EXAMINATION: GENERAL: This is a morbidly obese white female. VITAL SIGNS: Blood pressure 98/54, respiratory rate 18, pulse 70, afebrile. Weight 200.5 pounds plus. HEENT: Head was atraumatic, normocephalic. Eyes: PERRLA without jaundice. Mouth and throat were normal. NECK: Supple, no JVD, carotid bruits. No thyromegaly. LUNGS: The patient's lungs were diminished throughout, poor movement of air, but clear. CARDIOVASCULAR: Regular sinus rhythm. ABDOMEN: Protuberant, soft, diffuse tenderness in the epigastric area. EXTREMITIES: Without clubbing, cyanosis, or edema. NEUROLOGIC: The patient is alert and oriented x 3. LABORATORY DATA: The patient's urine showed greater than 1000 sugar in her urine. Her blood sugar initially in the Emergency Room was 440 and 471, elevated liver enzymes as noted with her history. The patient's CBC was unremarkable. The patient otherwise was unremarkable. The patient's abdomen and pelvis demonstrated a fatty infiltration, otherwise possible left adrenal myelolipoma, otherwise basically unremarkable. The patient admitted, placed by ER on a heparin drip, which we took her off as her sugars came down. She was placed back on her Tresiba and made excellent progress during the rest of her hospitalization. IMPRESSION AND PLAN: Gastroparesis with hyperglycemia, morbid obesity, fatty liver, elevated liver enzymes. The patient will be discharged home. Follow up as an outpatient and continue to be monitored on her sugars with her Tresiba. Apparently she was not eating when she had the hypoglycemic attacks and warned about not eating and taking insulin drugs. PEDRO PABLO JORDAN MD DR: JOHN/andrés JOB#: [id number] / [id number]
[2018-10-06] MEDS ORDERED: traZODone 50 MG TABLET. PO SCH (21:00)
[2018-10-06] MEDS ORDERED: INSULIN GLARGINE 300 UNITS/3 ML INSULN.PEN. SQ SCH (21:00)
[2018-10-07] MEDS ORDERED: DEXTROAMPHETAMINE PO SCH (08:00)
[2018-10-07] MEDS ORDERED: [UNRECOGNIZED DRUG - OTHER] PO SCH (08:00)
[2018-10-07] MEDS ORDERED: AMPHETAMINE PO SCH (08:00)
== END 2018-10-06 15:14 | disposition home or self-care (01) | DRG 74 ==
LOC: ER 20:51 → 1 SOUTH 23:30 → ICU 10-06 01:48
PROVIDERS: ADMIT Family Medicine; ATTEND Family Medicine
DX: E11.43 Type 2 diabetes mellitus with diabetic autonomic (poly)neuropathy (principal); E11.649 Type 2 diabetes mellitus with hypoglycemia without coma; E11.65 Type 2 diabetes mellitus with hyperglycemia; E66.01 Morbid (severe) obesity due to excess calories; I25.10 Atherosclerotic heart disease of native coronary artery without angina pectoris; F32.9 Major depressive disorder, single episode, unspecified; F41.9 Anxiety disorder, unspecified; K21.9 Gastro-esophageal reflux disease without esophagitis; K31.84 Gastroparesis; K76.0 Fatty (change of) liver, not elsewhere classified; Z83.3 Family history of diabetes mellitus; Z85.05 Personal history of malignant neoplasm of liver; Z85.41 Personal history of malignant neoplasm of cervix uteri; Z87.891 Personal history of nicotine dependence; Z90.710 Acquired absence of both cervix and uterus; Z88.8 Allergy status to other drugs, medicaments and biological substances; Z79.4 Long term (current) use of insulin; Z90.49 Acquired absence of other specified parts of digestive tract
CPT/HCPCS: 36415; 74022; 74177; 80048; 80076; 80307; 81001; 81025; 82947; 83690; 83735; 85025; 85027; 87641; 96361; 96365; 96372; 96375; J1815; J2270; J2405; J8597; Q9966; Q9967; 99285-25; J7030

== ENCOUNTER 2018-10-08 20:32 | Emergency (ER) | payer BC ==
[~2018-10-08] VITALS: Ht 162.6 cm; Wt 89.4 kg
[~2018-10-08 20:32] MED LIST changes: +BREX1TAB PO; +CLON0.5T11 PO; +DEXT20CA PO; +DICL50TA4 PO; +INSU100I11 SUBCUT; +INSU200I4 SUBCUT; +LINA72CA PO; +METO10TA81 PO; +TRAZ-85 PO
--- NOTE | 2018-10-08 20:37 | ED.ADGEN ---
Past History Past Medical History: Diabetes, Other Past Surgical History: Cholecystectomy, Hysterectomy, Tonsillectomy Smoking: Cigarettes, Less than 1pk/day Alcohol Use: None Drug Use: None Adult General Chief Complaint Chief Complaint '.. My sugars are high... again... they were in the 400's.. I took 20 unit of humalog at home... I was admitted the other night for high glucose levels..." HPI HPI Patient is a 38 year old female who presents with above hx and complaints of hyperglycemia. Patient denies any significant changes in her diabetic meds. Patient recently had been pulled off all her diabetic meds at . Patient normally follows Dr. French. Patient does have a insulin home for slight scale. No history of fever or chills or other exacerbating illnesses this time. No lesions of skin. For other causes for exacerbation of her diabetes. Patient denies any travel or specific ill contacts. Patient does smoke. No history immunosuppression. Review of Systems Review of Systems Constitutional: Denies fever or chills [] Eyes: Denies change in visual acuity, redness, or eye pain [] HENT: Denies nasal congestion or sore throat [] Respiratory: Denies cough or shortness of breath [] Cardiovascular: No additional information not addressed in HPI [] GI: Denies abdominal pain, nausea, vomiting, bloody stools or diarrhea [] : Denies dysuria or hematuria [] Musculoskeletal: Denies back pain or joint pain [] Integument: Denies rash or skin lesions [] Neurologic: Denies headache, focal weakness or sensory changes [] Endocrine: History of polyuria or polydipsia []elevated blood sugars above 400 All other systems were reviewed and found to be within normal limits, except as documented in this note. Family History Family History DM Current Medications Current Medications Current Medications Medications (Trade) Dose Ordered Sig/Yoko Start Time Stop Time Status Last Admin Dose Admin Insulin Human Regular (HumuLIN R VIAL) 10 unit 1X ONCE 10/08/18 23:00 10/08/18 23:37 DC 10/08/18 23:11 10 UNIT Sodium Chloride 1,000 ml @ 1,000 mls/hr 1X ONCE 10/08/18 21:30 10/08/18 22:29 DC 10/08/18 21:33 1,000 MLS/HR See nursing for home medications Allergies Allergies Allergies Coded Allergies Type Severity Reaction Last Updated Verified levofloxacin Allergy Intermediate 10/06/18 Yes Physical Exam Physical Exam Constitutional: no acute distress, non-toxic appearance. [] HENT: Normocephalic, atraumatic, bilateral external ears normal, oropharynx dry, , no oral exudates, nose normal. [] Eyes: PERRLA, EOMI, conjunctiva normal, no discharge. [] Neck: Normal range of motion, no tenderness, supple, no stridor. [] Cardiovascular:Heart rate regular rhythm, no murmur [] Lungs & Thorax: Bilateral breath sounds equal apex with scattered wheezes on auscultation [] Abdomen: Bowel sounds normal, soft, no tenderness, no masses, no pulsatile masses. [Morbidly obese. Old surgery scars. Skin: Warm, dry, no erythema, no rash. [] Back: No tenderness, no CVA tenderness. [] Extremities: No tenderness, no cyanosis, no clubbing, ROM intact, ankle edema. [ ] Neurologic: Alert and oriented X 3, normal motor function, normal sensory function, no focal deficits noted. [] Psychologic: Affect anxious, judgement normal, mood normal. [] Current Patient Data Lab Results Laboratory Tests Test 10/08/18 20:35 10/08/18 20:41 10/08/18 20:45 10/08/18 21:30 Urine Collection Type Unknown Urine Color Yellow Urine Clarity Clear Urine pH 6.0 Urine Specific Franklin 1.010 Urine Protein Neg (NEG-TRACE) Urine Glucose (UA) >=1000 mg/dL (NEG) Urine Ketones (Stick) Neg mg/dL (NEG) Urine Blood Mod (NEG) Urine Nitrite Neg (NEG) Urine Bilirubin Neg (NEG) Urine Urobilinogen Dipstick 0.2 mg/dL (0.2 mg/dL) Urine Leukocyte Esterase Neg (NEG) Urine RBC 1-2 /HPF (0-2) Urine WBC Rare /HPF (0-4) Urine Squamous Epithelial Cells Occ /LPF Urine Bacteria 0 /HPF (0-FEW) Glucose (Fingerstick) 460 mg/dL (70-99) H 481 mg/dL (70-99) H White Blood Count 10.7 x10^3/uL (4.0-11.0) Red Blood Count 4.80 x10^6/uL (3.50-5.40) Hemoglobin 14.8 g/dL (12.0-15.5) Hematocrit 43.4 % (36.0-47.0) Mean Corpuscular Volume 90 fL (79-100) Mean Corpuscular Hemoglobin 31 pg (25-35) Mean Corpuscular Hemoglobin Concent 34 g/dL (31-37) Red Cell Distribution Width 14.8 % (11.5-14.5) H Platelet Count 251 x10^3/uL (140-400) Neutrophils (%) (Auto) 63 % (31-73) Lymphocytes (%) (Auto) 27 % (24-48) Monocytes (%) (Auto) 7 % (0-9) Eosinophils (%) (Auto) 2 % (0-3) Basophils (%) (Auto) 1 % (0-3) Neutrophils # (Auto) 6.8 x10^3uL (1.8-7.7) Lymphocytes # (Auto) 2.9 x10^3/uL (1.0-4.8) Monocytes # (Auto) 0.7 x10^3/uL (0.0-1.1) Eosinophils # (Auto) 0.2 x10^3/uL (0.0-0.7) Basophils # (Auto) 0.1 x10^3/uL (0.0-0.2) Sodium Level 135 mmol/L (136-145) L Potassium Level 4.1 mmol/L (3.5-5.1) Chloride Level 98 mmol/L (98-107) Carbon Dioxide Level 28 mmol/L (21-32) Anion Gap 9 (6-14) Blood Urea Nitrogen 14 mg/dL (7-20) Creatinine 0.9 mg/dL (0.6-1.0) Estimated GFR (Cockcroft-Gault) 70.1 Glucose Level 453 mg/dL (70-99) H Calcium Level 9.4 mg/dL (8.5-10.1) Magnesium Level 1.8 mg/dL (1.8-2.4) Total Bilirubin 0.5 mg/dL (0.2-1.0) Direct Bilirubin 0.1 mg/dL (0.0-0.2) Aspartate Amino Transferase (AST) 47 U/L (15-37) H Alanine Aminotransferase (ALT) 147 U/L (14-59) H Alkaline Phosphatase 120 U/L (46-116) H Troponin I Quantitative < 0.017 ng/mL (0-0.055) Total Protein 7.8 g/dL (6.4-8.2) Albumin 3.8 g/dL (3.4-5.0) Lipase 168 U/L (73-393) Test 10/08/18 22:30 10/08/18 23:07 10/08/18 23:38 Glucose (Fingerstick) 328 mg/dL (70-99) H 317 mg/dL (70-99) H 296 mg/dL (70-99) H Radiology/Procedures Radiology/Procedures [] Course & Med Decision Making Course & Med Decision Making Pertinent Labs and Imaging studies reviewed. (See chart for details). Discussed options of treatment with patient. Patient currently elects to not be admitted. Treated with 2 L of normal saline. Patient also given 10 units of regular insulin. Patient to continue her sliding dosages at home and diabetic meds as previous directed by Dr. French. Patient to call Dr. French's office the morning for follow-up appointment. Patient return if any concerns. Patient again encouraged to stop smoking. [] Final Impression Final Impression 1. Hyperglycemia 453 2. Diabetes 3. Tobacco use[] 4. Mild elevation in AST and ALT 47/147 5. Mild dehydration 6. Morbid obesity Dragon Disclaimer Dragon Disclaimer This electronic medical record was generated, in whole or in part, using a voice recognition dictation system. Dragon Disclaimer This chart was dictated in whole or in part using Voice Recognition software in a busy, high-work load, and often noisy Emergency Department environment. It may contain unintended and wholly unrecognized errors or omissions. Discharge Summary Visit Information Final Diagnosis Problems Medical Problems: (1) Hyperglycemia Status: Acute Brief Hospital Course Allergies Allergies Coded Allergies Type Severity Reaction Last Updated Verified levofloxacin Allergy Intermediate 10/06/18 Yes Lab Results Laboratory Tests Test 10/08/18 20:35 10/08/18 20:41 10/08/18 20:45 10/08/18 21:30 Urine Collection Type Unknown Urine Color Yellow Urine Clarity Clear Urine pH 6.0 Urine Specific Franklin 1.010 Urine Protein Neg (NEG-TRACE) Urine Glucose (UA) >=1000 mg/dL (NEG) Urine Ketones (Stick) Neg mg/dL (NEG) Urine Blood Mod (NEG) Urine Nitrite Neg (NEG) Urine Bilirubin Neg (NEG) Urine Urobilinogen Dipstick 0.2 mg/dL (0.2 mg/dL) Urine Leukocyte Esterase Neg (NEG) Urine RBC 1-2 /HPF (0-2) Urine WBC Rare /HPF (0-4) Urine Squamous Epithelial Cells Occ /LPF Urine Bacteria 0 /HPF (0-FEW) Glucose (Fingerstick) 460 mg/dL (70-99) 481 mg/dL (70-99) White Blood Count 10.7 x10^3/uL (4.0-11.0) Red Blood Count 4.80 x10^6/uL (3.50-5.40) Hemoglobin 14.8 g/dL (12.0-15.5) Hematocrit 43.4 % (36.0-47.0) Mean Corpuscular Volume 90 fL (79-100) Mean Corpuscular Hemoglobin 31 pg (25-35) Mean Corpuscular Hemoglobin Concent 34 g/dL (31-37) Red Cell Distribution Width 14.8 % (11.5-14.5) Platelet Count 251 x10^3/uL (140-400) Neutrophils (%) (Auto) 63 % (31-73) Lymphocytes (%) (Auto) 27 % (24-48) Monocytes (%) (Auto) 7 % (0-9) Eosinophils (%) (Auto) 2 % (0-3) Basophils (%) (Auto) 1 % (0-3) Neutrophils # (Auto) 6.8 x10^3uL (1.8-7.7) Lymphocytes # (Auto) 2.9 x10^3/uL (1.0-4.8) Monocytes # (Auto) 0.7 x10^3/uL (0.0-1.1) Eosinophils # (Auto) 0.2 x10^3/uL (0.0-0.7) Basophils # (Auto) 0.1 x10^3/uL (0.0-0.2) Sodium Level 135 mmol/L (136-145) Potassium Level 4.1 mmol/L (3.5-5.1) Chloride Level 98 mmol/L (98-107) Carbon Dioxide Level 28 mmol/L (21-32) Anion Gap 9 (6-14) Blood Urea Nitrogen 14 mg/dL (7-20) Creatinine 0.9 mg/dL (0.6-1.0) Estimated GFR (Cockcroft-Gault) 70.1 Glucose Level 453 mg/dL (70-99) Calcium Level 9.4 mg/dL (8.5-10.1) Magnesium Level 1.8 mg/dL (1.8-2.4) Total Bilirubin 0.5 mg/dL (0.2-1.0) Direct Bilirubin 0.1 mg/dL (0.0-0.2) Aspartate Amino Transf (AST/SGOT) 47 U/L (15-37) Alanine Aminotransferase (ALT/SGPT) 147 U/L (14-59) Alkaline Phosphatase 120 U/L (46-116) Troponin I Quantitative < 0.017 ng/mL (0-0.055) Total Protein 7.8 g/dL (6.4-8.2) Albumin 3.8 g/dL (3.4-5.0) Lipase 168 U/L (73-393) Test 10/08/18 22:30 10/08/18 23:07 10/08/18 23:38 Glucose (Fingerstick) 328 mg/dL (70-99) 317 mg/dL (70-99) 296 mg/dL (70-99) Brief Hospital Course Ms. Villalobos is a 38 old female who presented with hyperglycemia. Discharge Information Condition at Discharge: Improved, Stable Disposition/Orders: D/C to Home Dischare Medications Current Medications Sodium Chloride 1,000 ml @ 1,000 mls/hr Q1H IV Last administered on at 20:53; Admin Dose 1,000 MLS/HR; Start 10/08/18 at 20:42; Stop 10/08/18 at 21:41; Status DC Sodium Chloride 1,000 ml @ 1,000 mls/hr 1X ONCE IV Last administered on 10/08at 21:33; Admin Dose 1,000 MLS/HR; Start 10/08/18 at 21:30; Stop 10/08/18 at 22:29; Status DC Insulin Human Regular (HumuLIN R VIAL) 10 unit 1X ONCE IV Last administered on 10/08/18at 23:11; Admin Dose 10 UNIT; Start 10/08/18 at 23:00; Stop at 23:37; Status DC Active Scripts Active Reported Reglan (Metoclopramide Hcl) 10 Mg Tablet 5 Mg PO TIDACHC Humalog (Insulin Lispro) 100 Unit/1 Ml Insuln.pen Unknown Dose SUBCUT TIDBFRMEAL sliding scale: up to 20 units before each meal Clonazepam 0.5 Mg Tablet 0.5 Tab PO TID Linzess (Linaclotide) 72 Mcg Capsule 1 Cap PO DAILY Diclofenac Sodium 50 Mg Tablet.dr 1 Tab PO TID PRN Tresiba Flextouch U-200 (Insulin Degludec) 200 Unit/1 Ml Insuln.pen 30 Units SUBCUT HS Dextroamp-Amphet Er 20 Mg Cap (Dextroamphetamine/Amphetamine) 20 Mg Cap.er.24h 1 Cap PO DAILY08 Trazodone Hcl 50 Mg Tablet 50 Mg PO HS Pristiq Er (Desvenlafaxine Succinate) 100 Mg Tab.er.24h 100 Mg PO DAILY Protonix (Pantoprazole Sodium) 40 Mg Tablet. 40 Mg PO DAILY RICKIE LAMB MD Oct 08, 2018 20:37
[2018-10-08] MEDS ORDERED: IV NORMAL SALINE 1,000ML 1,000 ML IV SCH (20:42)
[2018-10-08 21:11] LABS: BASO # 0.1 x10^3/uL (0.0-0.2); BASO % 1 % (0-3); EOS # 0.2 x10^3/uL (0.0-0.7); EOS % 2 % (0-3); HEMATOCRIT 43.4 % (36.0-47.0); HEMOGLOBIN 14.8 g/dL (12.0-15.5); LYMPH # 2.9 x10^3/uL (1.0-4.8); LYMPH % 27 % (24-48); MEAN CORPUSCULAR HEMOGLOBIN 31 pg (25-35); MEAN CORPUSCULAR HGB CONC 34 g/dL (31-37); MEAN CORPUSCULAR VOLUME 90 fL (79-100); MONO # 0.7 x10^3/uL (0.0-1.1); MONO % 7 % (0-9); NEUT # 6.8 x10^3uL (1.8-7.7); NEUT % 63 % (31-73); PLATELET COUNT 251 x10^3/uL (140-400); RED CELL DISTRIBUTION WIDTH 14.8 % (11.5-14.5); WHITE BLOOD COUNT 10.7 x10^3/uL (4.0-11.0)
[2018-10-08 21:27] LABS: ALBUMIN 3.8 g/dL (3.4-5.0); CALCIUM 9.4 mg/dL (8.5-10.1); CREATININE 0.9 mg/dL (0.6-1.0); DIRECT BILIRUBIN 0.1 mg/dL (0.0-0.2); GFR 70.1; MAGNESIUM 1.8 mg/dL (1.8-2.4); POTASSIUM 4.1 mmol/L (3.5-5.1); TOTAL BILIRUBIN 0.5 mg/dL (0.2-1.0); TOTAL PROTEIN 7.8 g/dL (6.4-8.2)
[2018-10-08] MEDS ORDERED: IV NORMAL SALINE 1,000ML 1,000 ML IV ONE (21:30)
[2018-10-08 21:38] LABS: CLARITY,URINE CLEAR; COLOR,URINE YELLOW; GLUCOSE,URINE >=1000 mg/dL (NEG)
[2018-10-08 21:40] LABS: BACTERIA,URINE 0 /HPF (0-FEW); BILIRUBIN,URINE NEG (NEG); NITRITE,URINE NEG (NEG); SQUAMOUS EPITHELIAL CELL,UR OCC /LPF; UROBILINOGEN,URINE 0.2 mg/dL (0.2 mg/dL); WBC,URINE RARE /HPF (0-4)
[2018-10-08] MEDS ORDERED: INSULIN REGULAR 100 UNIT/ML 3ML VIAL. IV ONE (23:00)
[2018-10-08 23:45] VITALS: BP 123/85
== END 2018-10-08 23:48 | disposition home or self-care (01) ==
LOC: ER 20:32
DX: E11.65 Type 2 diabetes mellitus with hyperglycemia (principal); F17.210 Nicotine dependence, cigarettes, uncomplicated; E86.0 Dehydration; E66.01 Morbid (severe) obesity due to excess calories; R74.0 Nonspecific elevation of levels of transaminase and lactic acid dehydrogenase [LDH]; Z68.33 Body mass index [BMI] 33.0-33.9, adult; Z88.1 Allergy status to other antibiotic agents
CPT/HCPCS: 36415; 80048; 80076; 81001; 82947; 83690; 83735; 84443; 84484; 85025; 96361; 96374; 99283; J1815; J7030

== ENCOUNTER 2018-10-17 03:57 | Emergency (ER) | payer BC ==
[~2018-10-17] VITALS: Ht 162.6 cm; Wt 89.9 kg
--- NOTE | 2018-10-17 03:59 | ED.ADGEN ---
Past History Past Medical History: Anxiety, Depression, Diabetes, GERD, Hypertension, UTI, Other (RICKIE LAMB MD) Past Surgical History: Cholecystectomy, Hysterectomy, Tonsillectomy (RICKIE LAMB MD) Smoking: Cigarettes, Less than 1pk/day Alcohol Use: None Drug Use: None (RICKIE LAMB MD) Adult General Chief Complaint Chief Complaint ".. My sugars are high again... in the 's.. and I got blood in my urine again....I have not followed up with urology yet... because of insurance...".. " I did swallow a tongue ring the other day accidently..."..." I am having some pain down here on the right..." (RICKIE LAMB MD) HPI HPI Patient is a 38 year old female who presents with above hx with complaints of high glucose levels and hematuria. Pt seen on 10/06, 10/08 for similar complaints. Pt. has remote hx of possible kidney stone. Pt. localizes her discomfort in Rt. lower abd. Pt. report compliant with diet and insulin usage. Pt. normally follows with Dr. [facility]. Pt. dose still smoke. Has right lower abdomen or flank pain. Pt. calvert hx of anxiety, CADz, DM, UTI , Elevated AST/ALT, GERD and DM. Pt. DM has been recently poorly controlled. Pt. seen at and was taken off all her DM meds. Pt. denies fever, chills, trauma, ill contacts or travel. Pt. has been using slide scale at home for control of her glucose levels. Pt. reports compliant with diet. Pt. last ate at 1600 hrs. (RICKIE LAMB MD) Review of Systems Review of Systems Constitutional: Denies fever or chills [] Eyes: Denies change in visual acuity, redness, or eye pain [] HENT: Denies nasal congestion or sore throat [] Respiratory: Denies cough or shortness of breath [] Cardiovascular: No additional information not addressed in HPI [] GI: Denies abdominal pain, nausea, vomiting, bloody stools or diarrhea [] : Complaints of hematuria [] Musculoskeletal: Denies back pain or joint pain [] Integument: Denies rash or skin lesions [] Neurologic: Denies headache, focal weakness or sensory changes [] Endocrine: Complaints of polyuria and polydipsia [] All other systems were reviewed and found to be within normal limits, except as documented in this note. (RICKIE LAMB MD) Family History Family History DM (RICKIE LAMB MD) Current Medications Current Medications Current Medications Medications (Trade) Dose Ordered Sig/Yoko Start Time Stop Time Status Last Admin Dose Admin Insulin Human Regular (HumuLIN R VIAL) 10 unit 1X ONCE 10/17/18 05:00 10/17/18 05:01 DC 10/17/18 04:22 10 UNIT Ketorolac Tromethamine (Toradol 30mg Vial) 30 mg 1X ONCE 10/17/18 05:00 10/17/18 05:01 DC 10/17/18 04:54 30 MG Sodium Chloride 1,000 ml @ 2 mls/hr 1X ONCE 10/17/18 05:00 11/07/18 00:59 10/17/18 04:53 2 MLS/HR (MEET BROWN MD) Current Medications See Nursing for home meds. (RICKIE LAMB MD) Allergies Allergies Allergies Coded Allergies Type Severity Reaction Last Updated Verified levofloxacin Allergy Intermediate 10/06/18 Yes (MEET BROWN MD) Physical Exam Physical Exam Constitutional: , no acute distress, non-toxic appearance. [] HENT: Normocephalic, atraumatic, bilateral external ears normal, oropharynx dry , no oral exudates, nose normal. []Tongue stud. Eyes: PERRLA, EOMI, conjunctiva normal, no discharge. [] Neck: Normal range of motion, no tenderness, supple, no stridor. [] Cardiovascular:Tachycardia Heart rate regular rhythm, no murmur [] Lungs & Thorax: Bilateral breath sounds equal apexes with few scattered wheezes on auscultation [] Abdomen: Bowel sounds normal, soft, right lower quadrant tenderness, no masses, no pulsatile masses. [] Obese. Old surgery scars. Mild rebound to Rt. lower abd. Distended. Skin: Warm, dry, no erythema, no rash. [] Back: No tenderness, no CVA tenderness. [] Extremities: No tenderness, no cyanosis, no clubbing, ROM intact, no edema. [] No true psoas or heel tap. Neurologic: Alert and oriented X 3, normal motor function, normal sensory function, no focal deficits noted. [] Psychologic: Affect anxious, judgement normal, mood normal. [] (RICKIE LAMB MD) Current Patient Data Vital Signs Vital Signs Date Time Temp Pulse Resp B/P (MAP) Pulse Ox O2 Delivery O2 Flow Rate FiO2 10/17/18 06:00 97 18 142/79 (100) 96 Room Air 10/17/18 03:57 98.1 (MEET BROWN MD) Lab Results Laboratory Tests Test 10/17/18 04:00 10/17/18 04:07 10/17/18 04:15 10/17/18 05:55 Urine Collection Type Unknown Urine Color Red Urine Clarity Cloudy Urine pH 5.0 Urine Specific [place] <=1.005 Urine Protein 100 mg/dl (NEG-TRACE) Urine Glucose (UA) >=1000 mg/dL (NEG) Urine Ketones (Stick) Neg mg/dL (NEG) Urine Blood Large (NEG) Urine Nitrite Neg (NEG) Urine Bilirubin Neg (NEG) Urine Urobilinogen Dipstick 0.2 mg/dL (0.2 mg/dL) Urine Leukocyte Esterase Neg (NEG) Urine RBC Tntc /HPF (0-2) Urine WBC Occ /HPF (0-4) Urine Squamous Epithelial Cells Few /LPF Urine Bacteria 0 /HPF (0-FEW) Urine Opiates Screen Neg (NEG) Urine Methadone Screen Neg (NEG) Urine Barbiturates Neg (NEG) Urine Phencyclidine Screen Neg (NEG) Urine Amphetamine/Methamphetamine Neg (NEG) Urine Benzodiazepines Screen Pos (NEG) Urine Cocaine Screen Neg (NEG) Urine Cannabinoids Screen Neg (NEG) Urine Ethyl Alcohol Neg (NEG) Glucose (Fingerstick) 522 mg/dL (70-99) *H 417 mg/dL (70-99) H White Blood Count 11.2 x10^3/uL (4.0-11.0) H Red Blood Count 4.44 x10^6/uL (3.50-5.40) Hemoglobin 13.7 g/dL (12.0-15.5) Hematocrit 41.5 % (36.0-47.0) Mean Corpuscular Volume 93 fL (79-100) Mean Corpuscular Hemoglobin 31 pg (25-35) Mean Corpuscular Hemoglobin Concent 33 g/dL (31-37) Red Cell Distribution Width 14.8 % (11.5-14.5) H Platelet Count 195 x10^3/uL (140-400) Neutrophils (%) (Auto) 92 % (31-73) H Lymphocytes (%) (Auto) 6 % (24-48) L Monocytes (%) (Auto) 2 % (0-9) Eosinophils (%) (Auto) 0 % (0-3) Basophils (%) (Auto) 0 % (0-3) Neutrophils # (Auto) 10.3 x10^3uL (1.8-7.7) H Lymphocytes # (Auto) 0.7 x10^3/uL (1.0-4.8) L Monocytes # (Auto) 0.2 x10^3/uL (0.0-1.1) Eosinophils # (Auto) 0.0 x10^3/uL (0.0-0.7) Basophils # (Auto) 0.0 x10^3/uL (0.0-0.2) Sodium Level 137 mmol/L (136-145) Potassium Level 4.5 mmol/L (3.5-5.1) Chloride Level 102 mmol/L (98-107) Carbon Dioxide Level 22 mmol/L (21-32) Anion Gap 13 (6-14) Blood Urea Nitrogen 13 mg/dL (7-20) Creatinine 1.2 mg/dL (0.6-1.0) H Estimated GFR (Cockcroft-Gault) 50.3 Glucose Level 577 mg/dL (70-99) *H Calcium Level 9.3 mg/dL (8.5-10.1) Magnesium Level 2.1 mg/dL (1.8-2.4) Total Bilirubin 0.7 mg/dL (0.2-1.0) Direct Bilirubin 0.2 mg/dL (0.0-0.2) Aspartate Amino Transferase (AST) 33 U/L (15-37) Alanine Aminotransferase (ALT) 132 U/L (14-59) H Alkaline Phosphatase 102 U/L (46-116) Troponin I Quantitative < 0.017 ng/mL (0-0.055) Total Protein 7.7 g/dL (6.4-8.2) Albumin 3.7 g/dL (3.4-5.0) Lipase 114 U/L (73-393) (MEET BROWN MD) Lab Results Laboratory Tests Test 10/17/18 04:00 10/17/18 04:07 10/17/18 04:15 10/17/18 04:40 Urine Collection Type Unknown Urine Color Red Urine Clarity Cloudy Urine pH 5.0 Urine Specific [place] <=1.005 Urine Protein 100 mg/dl (NEG-TRACE) Urine Glucose (UA) >=1000 mg/dL (NEG) Urine Ketones (Stick) Neg mg/dL (NEG) Urine Blood Large (NEG) Urine Nitrite Neg (NEG) Urine Bilirubin Neg (NEG) Urine Urobilinogen Dipstick 0.2 mg/dL (0.2 mg/dL) Urine Leukocyte Esterase Neg (NEG) Urine RBC Tntc /HPF (0-2) Urine WBC Occ /HPF (0-4) Urine Squamous Epithelial Cells Few /LPF Urine Bacteria 0 /HPF (0-FEW) Urine Opiates Screen Neg (NEG) Urine Methadone Screen Neg (NEG) Urine Barbiturates Neg (NEG) Urine Phencyclidine Screen Neg (NEG) Urine Amphetamine/Methamphetamine Neg (NEG) Urine Benzodiazepines Screen Pos (NEG) Urine Cocaine Screen Neg (NEG) Urine Cannabinoids Screen Neg (NEG) Urine Ethyl Alcohol Neg (NEG) Glucose (Fingerstick) 522 mg/dL (70-99) *H White Blood Count 11.2 x10^3/uL (4.0-11.0) H Red Blood Count 4.44 x10^6/uL (3.50-5.40) Hemoglobin 13.7 g/dL (12.0-15.5) Hematocrit 41.5 % (36.0-47.0) Mean Corpuscular Volume 93 fL (79-100) Mean Corpuscular Hemoglobin 31 pg (25-35) Mean Corpuscular Hemoglobin Concent 33 g/dL (31-37) Red Cell Distribution Width 14.8 % (11.5-14.5) H Platelet Count 195 x10^3/uL (140-400) Neutrophils (%) (Auto) 92 % (31-73) H Lymphocytes (%) (Auto) 6 % (24-48) L Monocytes (%) (Auto) 2 % (0-9) Eosinophils (%) (Auto) 0 % (0-3) Basophils (%) (Auto) 0 % (0-3) Neutrophils # (Auto) 10.3 x10^3uL (1.8-7.7) H Lymphocytes # (Auto) 0.7 x10^3/uL (1.0-4.8) L Monocytes # (Auto) 0.2 x10^3/uL (0.0-1.1) Eosinophils # (Auto) 0.0 x10^3/uL (0.0-0.7) Basophils # (Auto) 0.0 x10^3/uL (0.0-0.2) Sodium Level 137 mmol/L (136-145) Potassium Level 4.5 mmol/L (3.5-5.1) Chloride Level 102 mmol/L (98-107) Carbon Dioxide Level 22 mmol/L (21-32) Anion Gap 13 (6-14) Blood Urea Nitrogen 13 mg/dL (7-20) Creatinine 1.2 mg/dL (0.6-1.0) H Estimated GFR (Cockcroft-Gault) 50.3 Glucose Level 577 mg/dL (70-99) *H Calcium Level 9.3 mg/dL (8.5-10.1) Magnesium Level 2.1 mg/dL (1.8-2.4) Total Bilirubin 0.7 mg/dL (0.2-1.0) Direct Bilirubin 0.2 mg/dL (0.0-0.2) Aspartate Amino Transferase (AST) 33 U/L (15-37) Alanine Aminotransferase (ALT) 132 U/L (14-59) H Alkaline Phosphatase 102 U/L (46-116) Troponin I Quantitative < 0.017 ng/mL (0-0.055) Total Protein 7.7 g/dL (6.4-8.2) Albumin 3.7 g/dL (3.4-5.0) Lipase 114 U/L (73-393) Thyroid Stimulating Hormone (TSH) 0.411 uIU/mL (0.358-3.740) Triglycerides Level 28 mg/dL (0-150) Cholesterol Level 107 mg/dL (0-200) LDL Cholesterol, Calculated 43 mg/dL (0-100) VLDL Cholesterol, Calculated 5 mg/dL (0-40) Non-HDL Cholesterol Calculated 48 mg/dL (0-129) HDL Cholesterol 59 mg/dL (40-60) Cholesterol/HDL Ratio 1.0 Cortisol AM Sample 5.72 ug/dL (4.3-22.4) Test 10/17/18 05:55 Glucose (Fingerstick) 417 mg/dL (70-99) H (RICKIE LAMB MD) EKG EKG My interpretation of EkG shows sinus tachycardia of 108 BPM ,Lt. axis, no finding s of acute STEMI with contralateral changes. [] (RICKIE LAMB MD) Radiology/Procedures Radiology/Procedures My interpretation of Acute abd. show coin on Lt. ( fournd outside) and tongue stud in Rt. lower quadrant. Increased stool. No free air under diaphragm. [] CT shows no acute appendicitis. Tongue stud appears to have extended into the wall of the cecum. No free air or abscess noted. (RICKIE LAMB MD) Course & Med Decision Making Course & Med Decision Making Pertinent Labs and Imaging studies reviewed. (See chart for details) Transfer to [facility]- Dr. Deleon accepting. Consult to Surgery for FOB in Cec[place]. Consult will be placed with Dr. Edwards group. [] (RICKIE LAMB MD) Course & Med Decision Making 10/17/18 at 0625:Oncall surgeon Dr Edwards informed about patient at 0623. (MEET BROWN MD) Final Impression Final Impression 1. Elevated Glucose-522 2.[]DM 3. Tobacco Use 4. Dehydration 5. Hematuria 6. Foreign body- Tongue stud- appears extend into the wall of the cecum. (RICKIE LAMB MD) Dragon Disclaimer Dragon Disclaimer This electronic medical record was generated, in whole or in part, using a voice recognition dictation system. (RICKIE LAMB MD) Discharge Summary Visit Information Final Diagnosis Problems Medical Problems: (1) Foreign body (FB) in soft tissue Status: Acute (2) Hyperglycemia Status: Acute (3) Pain in the abdomen Status: Acute (MEET BROWN MD) Brief Hospital Course Allergies Allergies Coded Allergies Type Severity Reaction Last Updated Verified levofloxacin Allergy Intermediate 10/06/18 Yes (MEET BROWN MD) Vital Signs Vital Signs Date Time Temp Pulse Resp B/P (MAP) Pulse Ox O2 Delivery O2 Flow Rate FiO2 10/17/18 06:00 97 18 142/79 (100) 96 Room Air 10/17/18 03:57 98.1 (MEET BROWN MD) Lab Results Laboratory Tests Test 10/17/18 04:00 10/17/18 04:07 10/17/18 04:15 10/17/18 05:55 Urine Collection Type Unknown Urine Color Red Urine Clarity Cloudy Urine pH 5.0 Urine Specific [place] <=1.005 Urine Protein 100 mg/dl (NEG-TRACE) Urine Glucose (UA) >=1000 mg/dL (NEG) Urine Ketones (Stick) Neg mg/dL (NEG) Urine Blood Large (NEG) Urine Nitrite Neg (NEG) Urine Bilirubin Neg (NEG) Urine Urobilinogen Dipstick 0.2 mg/dL (0.2 mg/dL) Urine Leukocyte Esterase Neg (NEG) Urine RBC Tntc /HPF (0-2) Urine WBC Occ /HPF (0-4) Urine Squamous Epithelial Cells Few /LPF Urine Bacteria 0 /HPF (0-FEW) Urine Opiates Screen Neg (NEG) Urine Methadone Screen Neg (NEG) Urine Barbiturates Neg (NEG) Urine Phencyclidine Screen Neg (NEG) Urine Amphetamine/Methamphetamine Neg (NEG) Urine Benzodiazepines Screen Pos (NEG) Urine Cocaine Screen Neg (NEG) Urine Cannabinoids Screen Neg (NEG) Urine Ethyl Alcohol Neg (NEG) Glucose (Fingerstick) 522 mg/dL (70-99) 417 mg/dL (70-99) White Blood Count 11.2 x10^3/uL (4.0-11.0) Red Blood Count 4.44 x10^6/uL (3.50-5.40) Hemoglobin 13.7 g/dL (12.0-15.5) Hematocrit 41.5 % (36.0-47.0) Mean Corpuscular Volume 93 fL (79-100) Mean Corpuscular Hemoglobin 31 pg (25-35) Mean Corpuscular Hemoglobin Concent 33 g/dL (31-37) Red Cell Distribution Width 14.8 % (11.5-14.5) Platelet Count 195 x10^3/uL (140-400) Neutrophils (%) (Auto) 92 % (31-73) Lymphocytes (%) (Auto) 6 % (24-48) Monocytes (%) (Auto) 2 % (0-9) Eosinophils (%) (Auto) 0 % (0-3) Basophils (%) (Auto) 0 % (0-3) Neutrophils # (Auto) 10.3 x10^3uL (1.8-7.7) Lymphocytes # (Auto) 0.7 x10^3/uL (1.0-4.8) Monocytes # (Auto) 0.2 x10^3/uL (0.0-1.1) Eosinophils # (Auto) 0.0 x10^3/uL (0.0-0.7) Basophils # (Auto) 0.0 x10^3/uL (0.0-0.2) Sodium Level 137 mmol/L (136-145) Potassium Level 4.5 mmol/L (3.5-5.1) Chloride Level 102 mmol/L (98-107) Carbon Dioxide Level 22 mmol/L (21-32) Anion Gap 13 (6-14) Blood Urea Nitrogen 13 mg/dL (7-20) Creatinine 1.2 mg/dL (0.6-1.0) Estimated GFR (Cockcroft-Gault) 50.3 Glucose Level 577 mg/dL (70-99) Calcium Level 9.3 mg/dL (8.5-10.1) Magnesium Level 2.1 mg/dL (1.8-2.4) Total Bilirubin 0.7 mg/dL (0.2-1.0) Direct Bilirubin 0.2 mg/dL (0.0-0.2) Aspartate Amino Transf (AST/SGOT) 33 U/L (15-37) Alanine Aminotransferase (ALT/SGPT) 132 U/L (14-59) Alkaline Phosphatase 102 U/L (46-116) Troponin I Quantitative < 0.017 ng/mL (0-0.055) Total Protein 7.7 g/dL (6.4-8.2) Albumin 3.7 g/dL (3.4-5.0) Lipase 114 U/L (73-393) (MEET BROWN MD) Brief Hospital Course Ms. Villalobos is a 38 old female who presented with Rt. lower abd. pain and hyperglycemia (glucose 500s). Found to have tongue stud that appears to extend into the wall of cecum. Transfer to Dr. Monty RUSSELL, for surgery consult. (RICKIE LAMB MD) Discharge Information Condition at Discharge: Stable Disposition/Orders: D/C to Another Facility (RICKIE LAMB MD) Dischare Medications Current Medications Sodium Chloride 1,000 ml @ 1,000 mls/hr Q1H IV Last administered on 10/17/18at 04:22; Admin Dose 1,000 MLS/HR; Start 10/17/18 at 04:30; Stop 10/17/18 at 05:29; Status DC Insulin Human Regular (HumuLIN R VIAL) 10 unit 1X ONCE IV Last administered on 10/17/18at 04:22; Admin Dose 10 UNIT; Start 10/17/18 at 05:00; Stop 10/17/18 at 05:01; Status DC Sodium Chloride 1,000 ml @ 2 mls/hr 1X ONCE IV Last administered on 10/17/18at 04:53; Admin Dose 2 MLS/HR; Start 10/17/18 at 05:00; Stop 11/07/18 at 00:59 Ketorolac Tromethamine (Toradol 30mg Vial) 30 mg 1X ONCE IV Last administered on 10/17/18at 04:54; Admin Dose 30 MG; Start 10/17/18 at 05:00; Stop 10/17/18 at 05: 01; Status DC Active Scripts Active Reported Reglan (Metoclopramide Hcl) 10 Mg Tablet 5 Mg PO TIDACHC Humalog (Insulin Lispro) 100 Unit/1 Ml Insuln.pen Unknown Dose SUBCUT TIDBFRMEAL sliding scale: up to 20 units before each meal Clonazepam 0.5 Mg Tablet 0.5 Tab PO TID Linzess (Linaclotide) 72 Mcg Capsule 1 Cap PO DAILY Diclofenac Sodium 50 Mg Tablet.dr 1 Tab PO TID PRN Tresiba Flextouch U-200 (Insulin Degludec) 200 Unit/1 Ml Insuln.pen 30 Units SUBCUT HS Dextroamp-Amphet Er 20 Mg Cap (Dextroamphetamine/Amphetamine) 20 Mg Cap.er.24h 1 Cap PO DAILY08 Trazodone Hcl 50 Mg Tablet 50 Mg PO HS Pristiq Er (Desvenlafaxine Succinate) 100 Mg Tab.er.24h 100 Mg PO DAILY Protonix (Pantoprazole Sodium) 40 Mg Tablet. 40 Mg PO DAILY (MEET BROWN MD) Dragon Disclaimer This chart was dictated in whole or in part using Voice Recognition software in a busy, high-work load, and often noisy Emergency Department environment. It may contain unintended and wholly unrecognized errors or omissions. (RICKIE LAMB MD) RICKIE LAMB MD Oct 17, 2018 03:59 MEET BROWN MD Oct 17, 2018 06:27
[2018-10-17] MEDS ORDERED: IV NORMAL SALINE 1,000ML 1,000 ML IV SCH (04:30)
[2018-10-17 04:41] LABS: BASO % 0 % (0-3); EOS % 0 % (0-3); HEMATOCRIT 41.5 % (36.0-47.0); HEMOGLOBIN 13.7 g/dL (12.0-15.5); LYMPH # 0.7 x10^3/uL (1.0-4.8); LYMPH % 6 % (24-48); MEAN CORPUSCULAR HEMOGLOBIN 31 pg (25-35); MEAN CORPUSCULAR HGB CONC 33 g/dL (31-37); MEAN CORPUSCULAR VOLUME 93 fL (79-100); MONO # 0.2 x10^3/uL (0.0-1.1); MONO % 2 % (0-9); NEUT # 10.3 x10^3uL (1.8-7.7); NEUT % 92 % (31-73); PLATELET COUNT 195 x10^3/uL (140-400); RED BLOOD COUNT 4.44 x10^6/uL (3.50-5.40); RED CELL DISTRIBUTION WIDTH 14.8 % (11.5-14.5); WHITE BLOOD COUNT 11.2 x10^3/uL (4.0-11.0)
--- NOTE | 2018-10-17 04:41 | EKG ---
[address] [address] Test Date: 2018-10-17 Test Time: 04:30:57 Pat Name: SANFORD SEXTON Department: Room: Gender: F Entry Rep: : [id number] Requested By: RICKIE LAMB Order Number: [id number] Reading MD: Measurements Intervals [place] Rate: 108 P: 34 MO: 148 QRS: -21 QRSD: 92 T: 41 QT: 352 QTc: 476 Interpretive Statements SINUS TACHYCARDIA LEFTWARD AXIS NO SPECIFIC ECG ABNORMALITIES RI6.01 Unconfirmed report No previous ECG available for comparison
[2018-10-17 04:47] LABS: BACTERIA,URINE 0 /HPF (0-FEW); BILIRUBIN,URINE NEG (NEG); CLARITY,URINE CLOUDY; COLOR,URINE RED; GLUCOSE,URINE >=1000 mg/dL (NEG); NITRITE,URINE NEG (NEG); RBC,URINE TNTC /HPF (0-2); SQUAMOUS EPITHELIAL CELL,UR FEW /LPF; UROBILINOGEN,URINE 0.2 mg/dL (0.2 mg/dL); WBC,URINE OCC /HPF (0-4)
[2018-10-17 04:51] LABS: BARBITURATES NEG (NEG); BENZODIAZEPINES POS (NEG); CANNABINOIDS NEG (NEG); COCAINE NEG (NEG); METHADONE NEG (NEG); OPIATES NEG (NEG); PHENCYCLIDINE NEG (NEG)
[2018-10-17 04:53] LABS: AMPHETAMINE/METHAMPHETAMINE NEG (NEG)
[2018-10-17 04:58] LABS: ALBUMIN 3.7 g/dL (3.4-5.0); CALCIUM 9.3 mg/dL (8.5-10.1); CREATININE 1.2 mg/dL (0.6-1.0); DIRECT BILIRUBIN 0.2 mg/dL (0.0-0.2); GFR 50.3; MAGNESIUM 2.1 mg/dL (1.8-2.4); POTASSIUM 4.5 mmol/L (3.5-5.1); TOTAL BILIRUBIN 0.7 mg/dL (0.2-1.0); TOTAL PROTEIN 7.7 g/dL (6.4-8.2)
[2018-10-17] MEDS ORDERED: INSULIN REGULAR 100 UNIT/ML 3ML VIAL. IV ONE (05:00)
[2018-10-17] MEDS ORDERED: KETOROLAC 30 MG/ML VIAL. IV ONE (05:00)
[2018-10-17] MEDS ORDERED: IV NORMAL SALINE 1,000ML 1,000 ML IV ONE ×2 (05:00→07:00)
--- NOTE | 2018-10-17 05:23 | RAD ---
CT abdomen and pelvis without contrast. HISTORY: Hematuria, right-sided abdominal pain, history of kidney stones, swallowed tongue ring CT scan of the abdomen and pelvis was done without contrast. Lung bases are clear except for slight atelectasis. Liver is normal in appearance. The patient had a cholecystectomy. Spleen and adrenal glands are normal. Pancreas is normal. There is no mass or hydronephrosis or calculus in the kidneys. A ureteral calculus is not identified. Stomach is mildly distended. There is no adenopathy. There is no small bowel obstruction. Appendix is normal. There is a metallic foreign body in the cecum. Portion of the foreign body extends into the wall of the cecum. There is no free air or ascites or pericolonic inflammation. There is no free fluid. Patient's had a hysterectomy. There is mild diverticulosis of the colon without an acute diverticulitis. IMPRESSION: 1. Foreign body in the cecum, one portion of the foreign body extends into the wall of the cecum but without pericolonic inflammation or free air or abscess.. 2. Normal appendix. 3. No renal or ureteral calculus noted. Electronically signed by: Hipolito Goodson MD (10/17/2018 5:18 AM) [id number]
[2018-10-17 06:36] VITALS: BP 134/85
--- NOTE | 2018-10-18 00:21 | RAD ---
Acute abdominal series. HISTORY: Right-sided abdominal pain, hematuria, swallowed tongue ring 2 days ago 3 views were taken for an acute abdominal series. Lungs are clear. Heart is normal in size without heart failure. There is no free air on the upright view the abdomen. There are foreign bodies in the cecum. Patient's had a cholecystectomy. Small bowel pattern appears normal. IMPRESSION: 1. Foreign bodies noted in the right colon. 2. A renal calculus is not identified. 3. No acute chest disease. Electronically signed by: Hipolito Goodson MD (10/18/2018 12:16 AM) [id number]
== END 2018-10-17 06:50 | disposition short-term general hospital (02) ==
LOC: ER 03:57
DX: E11.65 Type 2 diabetes mellitus with hyperglycemia (principal); T18.4XXA Foreign body in colon, initial encounter; E86.0 Dehydration; R10.31 Right lower quadrant pain; R31.9 Hematuria, unspecified; I25.10 Atherosclerotic heart disease of native coronary artery without angina pectoris; F41.9 Anxiety disorder, unspecified; F32.9 Major depressive disorder, single episode, unspecified; K21.9 Gastro-esophageal reflux disease without esophagitis; I10 Essential (primary) hypertension; F17.210 Nicotine dependence, cigarettes, uncomplicated; Z87.440 Personal history of urinary (tract) infections; Z90.49 Acquired absence of other specified parts of digestive tract; Z90.710 Acquired absence of both cervix and uterus; Z88.1 Allergy status to other antibiotic agents; X58.XXXA Exposure to other specified factors, initial encounter; Y93.89 Activity, other specified; Y92.89 Other specified places as the place of occurrence of the external cause; Y99.8 Other external cause status
CPT/HCPCS: 36415; 74022; 74176; 80048; 80061; 80076; 80307; 81001; 82533; 82947; 83690; 83735; 84443; 84484; 85025; 86705; 86709; 86803; 87340; 93005; 96361; 96374; 96375; 99285; J1815; J1885; J7030

== ENCOUNTER 2018-10-23 02:11 | Emergency (ER) | payer BC ==
[~2018-10-23] VITALS: Ht 162.6 cm; Wt 88.5 kg
--- NOTE | 2018-10-23 02:14 | ED.ADGEN ---
Past History Past Medical History: Anxiety, Depression, Diabetes, GERD, Hypertension, UTI, Other Past Surgical History: Cholecystectomy, Hysterectomy, Tonsillectomy Smoking: Cigarettes, Less than 1pk/day Alcohol Use: None Drug Use: None Adult General Chief Complaint Chief Complaint ".. My sugar was high earlier tonight.. I was at [facility]...and they put me on a insulin qtts.... My sugars came down....and I was discharged.. but on the way home.... I started feeling like my sugars were getting too low... so I stopped here..." [facility] HPI Patient is a 38 year old female who presents with hypoglycemia complaints. Patient's initial glucose here was 42. Pt.blood glucoses at [facility] where in the 500 range. Patient has been seen here on 10/17/18 for hyperglycemia and foreign body in right colon (tongue stud). Patient also seen on 10/08/2018 for hyperglycemia. Patient has had problems with control for stabilizing her blood glucose levels. Patient denies any noncompliance with diet or her meds. Patient has extensive medical history with anxiety, depression, diabetes, GERD, hypertension, UTIs, bronchitis, and deconditioning. Patient does continue to smoke. Patient normally follows Dr. Aly. Patient does not have hypoglycemia unawareness . Review of Systems Review of Systems Constitutional: Denies fever or chills [] Eyes: Denies change in visual acuity, redness, or eye pain [] HENT: Denies nasal congestion or sore throat [] Respiratory: Denies cough or shortness of breath [] Cardiovascular: No additional information not addressed in HPI [] GI: Denies abdominal pain, nausea, vomiting, bloody stools or diarrhea [] : Denies dysuria or hematuria [] Musculoskeletal: Denies back pain or joint pain [] Integument: Denies rash or skin lesions [] Neurologic: Denies headache, focal weakness or sensory changes [] Endocrine: Denies polyuria or polydipsia []complaints of hyperglycemia symptoms then complaints of hypoglycemia. All other systems were reviewed and found to be within normal limits, except as documented in this note. Family History Family History Diabetes Current Medications Current Medications Current Medications Medications (Trade) Dose Ordered Sig/Yoko Start Time Stop Time Status Last Admin Dose Admin Acetaminophen (Tylenol) 500 mg STK-MED ONCE 10/23/18 05:00 10/23/18 05:14 DC Glucose (Insta-Glucose) 15 gm 1X ONCE 10/23/18 04:15 10/23/18 04:28 DC 10/23/18 04:13 15 GM Ondansetron HCl (Zofran Odt) 8 mg 1X ONCE 10/23/18 04:15 10/23/18 04:28 DC 10/23/18 04:24 8 MG Allergies Allergies Allergies Coded Allergies Type Severity Reaction Last Updated Verified levofloxacin Allergy Intermediate 10/06/18 Yes Physical Exam Physical Exam Constitutional: no acute distress, non-toxic appearance. [] HENT: Normocephalic, atraumatic, bilateral external ears normal, oropharynx moist, no oral exudates, nose normal. [] Eyes: PERRLA, EOMI, conjunctiva normal, no discharge. [] Neck: Normal range of motion, no tenderness, supple, no stridor. [] Cardiovascular:Heart rate regular rhythm, no murmur [] Lungs & Thorax: Bilateral breath sounds clear to auscultation [] Abdomen: Bowel sounds normal, soft, no tenderness, no masses, no pulsatile masses. Obese. Skin: Warm, dry, no erythema, no rash. [] Back: No tenderness, no CVA tenderness. [] Extremities: No tenderness, no cyanosis, no clubbing, ROM intact, no edema. [] Neurologic: Alert and oriented X 3, normal motor function, normal sensory function, no focal deficits noted. [] Psychologic: Affect anxious, judgement normal, mood normal. [] Current Patient Data Vital Signs Vital Signs Date Time Temp Pulse Resp B/P (MAP) Pulse Ox O2 Delivery O2 Flow Rate FiO2 10/23/18 02:15 98.9 94 16 100 Room Air Lab Results Laboratory Tests Test 10/23/18 02:22 10/23/18 02:54 10/23/18 03:23 10/23/18 04:02 Glucose (Fingerstick) 42 mg/dL (70-99) L 73 mg/dL (70-99) 87 mg/dL (70-99) 79 mg/dL (70-99) Test 10/23/18 04:46 Glucose (Fingerstick) 92 mg/dL (70-99) EKG EKG [] Radiology/Procedures Radiology/Procedures [] Course & Med Decision Making Course & Med Decision Making Pertinent Labs and Imaging studies reviewed. (See chart for details). Pt. to resume diabetic diet and home diabetic meds as per primary ( Dr. French. ) Keep follow up as schedule. [] Final Impression Final Impression 1. Hx of Hyperglycemia Episodes 2. Hypoglycemia 3. Hx. DM[] Dragon Disclaimer Dragon Disclaimer This electronic medical record was generated, in whole or in part, using a voice recognition dictation system. Dragon Disclaimer This chart was dictated in whole or in part using Voice Recognition software in a busy, high-work load, and often noisy Emergency Department environment. It may contain unintended and wholly unrecognized errors or omissions. Dragon Disclaimer This chart was dictated in whole or in part using Voice Recognition software in a busy, high-work load, and often noisy Emergency Department environment. It may contain unintended and wholly unrecognized errors or omissions. Discharge Summary Visit Information Final Diagnosis Problems Medical Problems: (1) Hypoglycemia Status: Acute Brief Hospital Course Allergies Allergies Coded Allergies Type Severity Reaction Last Updated Verified levofloxacin Allergy Intermediate 10/06/18 Yes Vital Signs Vital Signs Date Time Temp Pulse Resp B/P (MAP) Pulse Ox O2 Delivery O2 Flow Rate FiO2 10/23/18 02:15 98.9 94 16 100 Room Air Lab Results Laboratory Tests Test 10/23/18 02:22 10/23/18 02:54 10/23/18 03:23 10/23/18 04:02 Glucose (Fingerstick) 42 mg/dL (70-99) 73 mg/dL (70-99) 87 mg/dL (70-99) 79 mg/dL (70-99) Test 10/23/18 04:46 Glucose (Fingerstick) 92 mg/dL (70-99) Brief Hospital Course Ms. Villalobos is a 38 old female who presented with hypoglycemia after IV insulin tx. at [facility] tonight. Pt. feed and given oral glucose. Pt. glucose appear to have stabilized and was in 90 range. Patient to resume diabetic diet and meds as per primary care. Discharge Information Condition at Discharge: Improved, Stable Disposition/Orders: D/C to Home Dischare Medications Current Medications Glucose (Insta-Glucose) 15 gm STK-MED ONCE .ROUTE ; Start 10/23/18 at 02:26; Stop 10/23/18 at 02:28; Status DC Glucose (Insta-Glucose) 15 gm STK-MED ONCE .ROUTE ; Start 10/23/18 at 04:07; Stop 10/23/18 at 04:09; Status DC Glucose (Insta-Glucose) 15 gm 1X ONCE PO Last administered on 10/23/18at 04:11 ; Admin Dose 15 GM; Start 10/23/18 at 04:15; Stop 10/23/18 at 04:16; Status DC Glucose (Insta-Glucose) 15 gm 1X ONCE PO Last administered on 10/23/18at 04:13 ; Admin Dose 15 GM; Start 10/23/18 at 04:15; Stop 10/23/18 at 04:28; Status DC Ondansetron HCl (Zofran Odt) 8 mg 1X ONCE PO Last administered on 10/23/18at 04 :24; Admin Dose 8 MG; Start 10/23/18 at 04:15; Stop 10/23/18 at 04:28; Status DC Acetaminophen (Tylenol) 1,000 mg 1X ONCE PO Last administered on 10/23/18at 05: 00; Admin Dose 1,000 MG; Start 10/23/18 at 05:00; Stop 10/23/18 at 05:14; Status DC Acetaminophen (Tylenol) 500 mg STK-MED ONCE PO ; Start 10/23/18 at 05:00; Stop 10/23/18 at 05:14; Status DC Active Scripts Active Reported Reglan (Metoclopramide Hcl) 10 Mg Tablet 5 Mg PO TIDACHC Humalog (Insulin Lispro) 100 Unit/1 Ml Insuln.pen Unknown Dose SUBCUT TIDBFRMEAL sliding scale: up to 20 units before each meal Clonazepam 0.5 Mg Tablet 0.5 Tab PO TID Linzess (Linaclotide) 72 Mcg Capsule 1 Cap PO DAILY Diclofenac Sodium 50 Mg Tablet.dr 1 Tab PO TID PRN Tresiba Flextouch U-200 (Insulin Degludec) 200 Unit/1 Ml Insuln.pen 30 Units SUBCUT HS Dextroamp-Amphet Er 20 Mg Cap (Dextroamphetamine/Amphetamine) 20 Mg Cap.er.24h 1 Cap PO DAILY08 Trazodone Hcl 50 Mg Tablet 50 Mg PO HS Pristiq Er (Desvenlafaxine Succinate) 100 Mg Tab.er.24h 100 Mg PO DAILY Protonix (Pantoprazole Sodium) 40 Mg Tablet. 40 Mg PO DAILY Discharge Summary Visit Information Final Diagnosis Problems Medical Problems: (1) Hypoglycemia Status: Acute Brief Hospital Course Allergies Allergies Coded Allergies Type Severity Reaction Last Updated Verified levofloxacin Allergy Intermediate 10/06/18 Yes Vital Signs Vital Signs Date Time Temp Pulse Resp B/P (MAP) Pulse Ox O2 Delivery O2 Flow Rate FiO2 10/23/18 02:15 98.9 94 16 100 Room Air Lab Results Laboratory Tests Test 10/23/18 02:22 10/23/18 02:54 10/23/18 03:23 10/23/18 04:02 Glucose (Fingerstick) 42 mg/dL (70-99) 73 mg/dL (70-99) 87 mg/dL (70-99) 79 mg/dL (70-99) Test 10/23/18 04:46 Glucose (Fingerstick) 92 mg/dL (70-99) Brief Hospital Course Ms. Villalobos is a 38 old female who presented with hypoglycemia after tx. with IV insulin at [facility]. Pt. give oral glucose and feedings until Glucose stabilized 90's. Discharge Information Condition at Discharge: Improved, Stable Disposition/Orders: D/C to Home Dischare Medications Current Medications Glucose (Insta-Glucose) 15 gm STK-MED ONCE .ROUTE ; Start 10/23/18 at 02:26; Stop 10/23/18 at 02:28; Status DC Glucose (Insta-Glucose) 15 gm STK-MED ONCE .ROUTE ; Start 10/23/18 at 04:07; Stop 10/23/18 at 04:09; Status DC Glucose (Insta-Glucose) 15 gm 1X ONCE PO Last administered on 10/23/18at 04:11 ; Admin Dose 15 GM; Start 10/23/18 at 04:15; Stop 10/23/18 at 04:16; Status DC Glucose (Insta-Glucose) 15 gm 1X ONCE PO Last administered on 10/23/18at 04:13 ; Admin Dose 15 GM; Start 10/23/18 at 04:15; Stop 10/23/18 at 04:28; Status DC Ondansetron HCl (Zofran Odt) 8 mg 1X ONCE PO Last administered on 10/23/18at 04 :24; Admin Dose 8 MG; Start 10/23/18 at 04:15; Stop 10/23/18 at 04:28; Status DC Acetaminophen (Tylenol) 1,000 mg 1X ONCE PO Last administered on 10/23/18at 05: 00; Admin Dose 1,000 MG; Start 10/23/18 at 05:00; Stop 10/23/18 at 05:14; Status DC Acetaminophen (Tylenol) 500 mg STK-MED ONCE PO ; Start 10/23/18 at 05:00; Stop 10/23/18 at 05:14; Status DC Active Scripts Active Reported Reglan (Metoclopramide Hcl) 10 Mg Tablet 5 Mg PO TIDACHC Humalog (Insulin Lispro) 100 Unit/1 Ml Insuln.pen Unknown Dose SUBCUT TIDBFRMEAL sliding scale: up to 20 units before each meal Clonazepam 0.5 Mg Tablet 0.5 Tab PO TID Linzess (Linaclotide) 72 Mcg Capsule 1 Cap PO DAILY Diclofenac Sodium 50 Mg Tablet. 1 Tab PO TID PRN Tresiba Flextouch U-200 (Insulin Degludec) 200 Unit/1 Ml Insuln.pen 30 Units SUBCUT HS Dextroamp-Amphet Er 20 Mg Cap (Dextroamphetamine/Amphetamine) 20 Mg Cap.er.24h 1 Cap PO DAILY08 Trazodone Hcl 50 Mg Tablet 50 Mg PO HS Pristiq Er (Desvenlafaxine Succinate) 100 Mg Tab.er.24h 100 Mg PO DAILY Protonix (Pantoprazole Sodium) 40 Mg Tablet. 40 Mg PO DAILY RICKIE LAMB MD Oct 23, 2018 02:14
[2018-10-23] MEDS ORDERED: DEXTROSE ORAL GEL 15 GM TUBE. ONE ×2 (02:26→04:07)
[2018-10-23] MEDS: DEXTROSE ORAL GEL 15 GM TUBE. PO ONE ×2 (04:11→04:13)
[2018-10-23] MEDS: ONDANSETRON ODT 4 MG TAB.RAPDIS PO ONE (04:24)
[2018-10-23 04:55] VITALS: BP 154/81
[2018-10-23] MEDS: ACETAMINOPHEN 500 MG TABLET PO ONE (05:00)
[2018-10-23] MEDS ORDERED: ACETAMINOPHEN 500 MG TABLET PO ONE (05:00)
== END 2018-10-23 05:14 | disposition home or self-care (01) ==
LOC: ER 02:11
DX: E11.649 Type 2 diabetes mellitus with hypoglycemia without coma (principal); F41.9 Anxiety disorder, unspecified; K21.9 Gastro-esophageal reflux disease without esophagitis; I10 Essential (primary) hypertension; F17.210 Nicotine dependence, cigarettes, uncomplicated; Z87.440 Personal history of urinary (tract) infections; Z88.1 Allergy status to other antibiotic agents
CPT/HCPCS: 82947; 99284; Q0162

== ENCOUNTER 2018-11-06 22:19 | Emergency (ER) | payer BC ==
[~2018-11-06] VITALS: Ht 162.6 cm; Wt 86.6 kg
--- NOTE | 2018-11-06 23:18 | EKG ---
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
[2018-11-06] MEDS: MORPHINE SULFATE 4 MG/ML DISP.SYRIN. IV ONE (23:25)
[2018-11-06] MEDS: IV NORMAL SALINE 1,000ML 1,000 ML IV ONE (23:25)
[2018-11-06] MEDS: ONDANSETRON PF 4 MG/2 ML VIAL. IV ONE (23:25)
[2018-11-06 23:50] LABS: BASO # 0.1 x10^3/uL (0.0-0.2); BASO % 1 % (0-3); EOS # 0.1 x10^3/uL (0.0-0.7); EOS % 1 % (0-3); HEMATOCRIT 39.7 % (36.0-47.0); HEMOGLOBIN 13.3 g/dL (12.0-15.5); LYMPH # 1.9 x10^3/uL (1.0-4.8); LYMPH % 17 % (24-48); MEAN CORPUSCULAR HEMOGLOBIN 30 pg (25-35); MEAN CORPUSCULAR HGB CONC 34 g/dL (31-37); MEAN CORPUSCULAR VOLUME 90 fL (79-100); MONO # 0.8 x10^3/uL (0.0-1.1); MONO % 8 % (0-9); NEUT # 8.2 x10^3uL (1.8-7.7); NEUT % 74 % (31-73); PLATELET COUNT 205 x10^3/uL (140-400); RED BLOOD COUNT 4.43 x10^6/uL (3.50-5.40); RED CELL DISTRIBUTION WIDTH 15.3 % (11.5-14.5)
[2018-11-06 23:54] LABS: CALCIUM 9.3 mg/dL (8.5-10.1); CREATININE 0.9 mg/dL (0.6-1.0); GFR 70.1; POTASSIUM 4.2 mmol/L (3.5-5.1)
[2018-11-07] MEDS ORDERED: MORPHINE SULFATE 2 MG/ML DISP.SYRIN. ONE (00:36)
[2018-11-07] MEDS: IV NORMAL SALINE 1,000ML 1,000 ML IV ONE (00:45)
[2018-11-07] MEDS: MORPHINE SULFATE 4 MG/ML DISP.SYRIN. IV ONE (00:45)
[2018-11-07 00:55] LABS: BILIRUBIN,URINE NEG (NEG); CLARITY,URINE HAZY; COLOR,URINE YELLOW; GLUCOSE,URINE >=1000 mg/dL (NEG); NITRITE,URINE NEG (NEG); UROBILINOGEN,URINE 0.2 mg/dL (0.2 mg/dL)
[2018-11-07 00:56] LABS: BACTERIA,URINE FEW /HPF (0-FEW); RBC,URINE 0 /HPF (0-2); SQUAMOUS EPITHELIAL CELL,UR FEW /LPF
--- NOTE | 2018-11-07 01:21 | ED.ADGEN ---
Past History Past Medical History: Anxiety, Depression, Diabetes, GERD, Hypertension, UTI, Other Past Surgical History: Cholecystectomy, Hysterectomy, Tonsillectomy Smoking: Cigarettes, Less than 1pk/day Alcohol Use: None Drug Use: None Adult General HPI HPI Patient is a 38 year old female who presents with elevated blood glucose levels. The patient is a type I diabetic. She uses long-acting insulin every night as well as some Humalog during the day pending on her blood glucose levels. Earlier today, she underwent outpatient surgery for a ventral hernia. The surgery was performed by Dr. Edwards at [facility]. The patient reports that her surgical course was without any acute events and she was discharged home. She was given pain medications to use at home. Over the course of the day, however, the patient noted that her blood glucose levels were very elevated. She states at baseline and they are between 250 and 300. Today, however, she was having some readings over 400 and 460. Patient became concerned that she may be developing a postoperative infection based on her blood glucose level so she came to the ER. No fevers or chills. No intractable pain at home. No nausea or vomiting. The patient states she was instructed to use half a dose of her long-acting insulin last night which she did. Earlier today, she did use some of her short acting insulin although her by mouth intake was significantly decreased today compared to baseline. Patient is passing flatus. No difficulty with urinating. Review of Systems Review of Systems Constitutional: Denies fever or chills HENT: Denies nasal congestion Respiratory: Denies cough or shortness of breath Cardiovascular: No additional information not addressed in HPI GI: abd pain that is appropriate for post-op status : Denies dysuria or hematuria Musculoskeletal: Denies back pain Integument: Denies rash or skin lesions Neurologic: Denies headache All other systems were reviewed and found to be within normal limits, except as documented in this note. Current Medications Current Medications Current Medications Medications (Trade) Dose Ordered Sig/Yoko Start Time Stop Time Status Last Admin Dose Admin Fentanyl Citrate (Fentanyl 2ml Vial) 75 mcg 1X ONCE 11/07/18 00:45 11/07/18 00:48 DC 11/07/18 00:46 75 MCG Morphine Sulfate (Morphine 2mg Syringe) 2 mg STK-MED ONCE 11/07/18 00:36 11/07/18 00:40 DC Morphine Sulfate (Morphine 4mg Syringe) 2 mg 1X ONCE 11/07/18 00:45 11/07/18 00:46 DC Ondansetron HCl (Zofran) 4 mg 1X ONCE 11/06/18 23:00 11/06/18 23:01 DC 11/06/18 23:25 4 MG Sodium Chloride 1,000 ml @ 1,000 mls/hr 1X ONCE 11/07/18 00:45 11/07/18 01:44 DC 11/07/18 00:45 1,000 MLS/HR Allergies Allergies Allergies Coded Allergies Type Severity Reaction Last Updated Verified levofloxacin Allergy Intermediate 10/06/18 Yes Physical Exam Physical Exam Constitutional: Well developed, well nourished, no acute distress, non-toxic appearance HENT: Normocephalic, atraumatic, bilateral external ears normal, oropharynx moist Eyes: PERRLA, EOMI, conjunctiva normal Neck: Normal range of motion Cardiovascular: RRR, no murmur Lungs & Thorax: Bilateral breath sounds clear to auscultation Abdomen: Bowel sounds normal, soft, appropriately tender. + BS in four quadrants. surgical incision with blood-stained gauze but is dry. Portion of the incision is examined and there is no dehiscence, local drainage, swelling, or erythema Skin: Warm, dry, no erythema, no rash Back: No tenderness Extremities: No edema, no calf tenderness or swelling Neurologic: Alert and oriented X 3 Psychologic: Affect normal, judgement normal Current Patient Data Vital Signs Vital Signs Date Time Temp Pulse Resp B/P (MAP) Pulse Ox O2 Delivery O2 Flow Rate FiO2 11/07/18 01:25 83 18 119/66 (83) 94 Room Air 11/06/18 22:35 97.8 Lab Results Laboratory Tests Test 11/06/18 22:54 11/06/18 23:15 11/07/18 00:20 11/07/18 00:32 Glucose (Fingerstick) 382 mg/dL (70-99) H 274 mg/dL (70-99) H White Blood Count 11.0 x10^3/uL (4.0-11.0) Red Blood Count 4.43 x10^6/uL (3.50-5.40) Hemoglobin 13.3 g/dL (12.0-15.5) Hematocrit 39.7 % (36.0-47.0) Mean Corpuscular Volume 90 fL (79-100) Mean Corpuscular Hemoglobin 30 pg (25-35) Mean Corpuscular Hemoglobin Concent 34 g/dL (31-37) Red Cell Distribution Width 15.3 % (11.5-14.5) H Platelet Count 205 x10^3/uL (140-400) Neutrophils (%) (Auto) 74 % (31-73) H Lymphocytes (%) (Auto) 17 % (24-48) L Monocytes (%) (Auto) 8 % (0-9) Eosinophils (%) (Auto) 1 % (0-3) Basophils (%) (Auto) 1 % (0-3) Neutrophils # (Auto) 8.2 x10^3uL (1.8-7.7) H Lymphocytes # (Auto) 1.9 x10^3/uL (1.0-4.8) Monocytes # (Auto) 0.8 x10^3/uL (0.0-1.1) Eosinophils # (Auto) 0.1 x10^3/uL (0.0-0.7) Basophils # (Auto) 0.1 x10^3/uL (0.0-0.2) Sodium Level 140 mmol/L (136-145) Potassium Level 4.2 mmol/L (3.5-5.1) Chloride Level 103 mmol/L (98-107) Carbon Dioxide Level 29 mmol/L (21-32) Anion Gap 8 (6-14) Blood Urea Nitrogen 10 mg/dL (7-20) Creatinine 0.9 mg/dL (0.6-1.0) Estimated GFR (Cockcroft-Gault) 70.1 Glucose Level 383 mg/dL (70-99) H Calcium Level 9.3 mg/dL (8.5-10.1) Troponin I Quantitative < 0.017 ng/mL (0-0.055) Urine Collection Type Unknown Urine Color Yellow Urine Clarity Hazy Urine pH 5.5 Urine Specific [place] 1.015 Urine Protein Neg (NEG-TRACE) Urine Glucose (UA) >=1000 mg/dL (NEG) Urine Ketones (Stick) Neg mg/dL (NEG) Urine Blood Trace (NEG) Urine Nitrite Neg (NEG) Urine Bilirubin Neg (NEG) Urine Urobilinogen Dipstick 0.2 mg/dL (0.2 mg/dL) Urine Leukocyte Esterase Neg (NEG) Urine RBC 0 /HPF (0-2) Urine WBC 5-10 /HPF (0-4) Urine Squamous Epithelial Cells Few /LPF Urine Bacteria Few /HPF (0-FEW) Test 11/07/18 01:26 Glucose (Fingerstick) 230 mg/dL (70-99) H EKG EKG [] Radiology/Procedures Radiology/Procedures [] Course & Med Decision Making Course & Med Decision Making Pertinent Labs and Imaging studies reviewed. (See chart for details) Patient is evaluated immediately on arrival to her room. Her physical exam is only remarkable for a very well healing incision. Her abdomen is soft and she has bowel sounds. Her blood glucose level however is over 400. Plan in the ER is to give IV fluids and check basic labs. Patient had some fear of giving herself short acting insulin as she thought her blood glucose level might fall to low since she had decreased by mouth intake today. No fever or chills. 01:20: Patient had 2 doses of pain medication in the ER. She was given 2 L of normal saline. Her blood glucose level did come down without the need for insulin. She had no vomiting. She was given 1 dose of Zofran as she did feel mildly nauseated on arrival. Overall, she is in a very well postoperative state with no evidence for acute complications. No leukocytosis. Her BMP was normal other than her blood glucose. No anion gap. Urine was checked and was noted to have 5-10 WBC's but no other findings suspicious for infection and the patient does not have urinary symptoms. She was not treated in the emergency department today. Patient is discharged home. She is advised to follow-up with Dr. Edwards and to continue taking her normal medications along with her pain medication. Increase by mouth intake as her appetite will allow. Final Impression Final Impression Hyperglycemia Post-operative pain Dragon Disclaimer Dragon Disclaimer This electronic medical record was generated, in whole or in part, using a voice recognition dictation system. MATTY ALMONTE DO Nov 07, 2018 01:21
[2018-11-07 01:25] VITALS: BP 119/66
== END 2018-11-07 01:40 | disposition home or self-care (01) ==
LOC: ER 22:19
DX: E10.65 Type 1 diabetes mellitus with hyperglycemia (principal); G89.18 Other acute postprocedural pain; F41.9 Anxiety disorder, unspecified; F32.9 Major depressive disorder, single episode, unspecified; K21.9 Gastro-esophageal reflux disease without esophagitis; I10 Essential (primary) hypertension; F17.210 Nicotine dependence, cigarettes, uncomplicated; Z87.440 Personal history of urinary (tract) infections; Z98.890 Other specified postprocedural states; Z90.49 Acquired absence of other specified parts of digestive tract; Z90.710 Acquired absence of both cervix and uterus; Z88.1 Allergy status to other antibiotic agents
CPT/HCPCS: 36415; 80048; 81001; 82947; 84484; 85025; 87086; 93005; 96361; 96374; 96375; 99284; J2270; J2405; J3010; J7030

== ENCOUNTER 2018-12-04 17:09 | Emergency (ER) | payer BC ==
[~2018-12-04] VITALS: Ht 162.6 cm; Wt 89.9 kg
[~2018-12-04 17:09] MED LIST changes: +TRAZ-120 PO; -TRAZ-85 PO
[2018-12-04] MEDS ORDERED: IV NORMAL SALINE 1,000ML 1,000 ML IV ONE ×3 (17:30→21:45)
[2018-12-04 17:44] LABS: BASO # 0.1 x10^3/uL (0.0-0.2); BASO % 1 % (0-3); EOS # 0.1 x10^3/uL (0.0-0.7); EOS % 1 % (0-3); HEMATOCRIT 43.2 % (36.0-47.0); HEMOGLOBIN 14.5 g/dL (12.0-15.5); LYMPH # 2.2 x10^3/uL (1.0-4.8); LYMPH % 26 % (24-48); MEAN CORPUSCULAR HEMOGLOBIN 30 pg (25-35); MEAN CORPUSCULAR HGB CONC 34 g/dL (31-37); MEAN CORPUSCULAR VOLUME 89 fL (79-100); MONO # 0.5 x10^3/uL (0.0-1.1); MONO % 6 % (0-9); NEUT # 5.5 x10^3uL (1.8-7.7); NEUT % 65 % (31-73); PLATELET COUNT 220 x10^3/uL (140-400); RED BLOOD COUNT 4.85 x10^6/uL (3.50-5.40); RED CELL DISTRIBUTION WIDTH 15.4 % (11.5-14.5); WHITE BLOOD COUNT 8.4 x10^3/uL (4.0-11.0)
[2018-12-04 17:52] LABS: BACTERIA,URINE 0 /HPF (0-FEW); BILIRUBIN,URINE NEG (NEG); CLARITY,URINE CLEAR; COLOR,URINE STRAW; GLUCOSE,URINE >=1000 mg/dL (NEG); NITRITE,URINE NEG (NEG); RBC,URINE 0 /HPF (0-2); SQUAMOUS EPITHELIAL CELL,UR MOD /LPF; UROBILINOGEN,URINE 0.2 mg/dL (0.2 mg/dL)
--- NOTE | 2018-12-04 18:05 | PHYS DOC ---
Past History Past Medical History: Anxiety, Depression, Diabetes, GERD, Hypertension, UTI, Other (JOSE MELENDEZ DO) Past Surgical History: Cholecystectomy, Hysterectomy, Tonsillectomy (JOSE MELENDEZ DO) Smoking: Cigarettes, Less than 1pk/day Alcohol Use: None Drug Use: None (JOSE MELENDEZ DO) Adult General Chief Complaint Chief Complaint: HYPERGLYCEMIA HPI HPI 38-year-old female presents with hyperglycemia. The patient is a known type II diabetic. She has been taking her medications as prescribed. The last 2 days she 's been unable to get her blood sugar below about 500. She has had this happen in the past, but usually taking her medications and drinking extra water brings it down. For some reason it is not coming down now. Last time it was this high, was after she had surgery. They were able to improve her blood sugar in the emergency room and she went home. Her blood sugar stabilized after that visit. The patient has been feeling mostly normal. She's had a small amount of diarrhea and nausea, but no vomiting. She's been eating and drinking normally. She denies fever or chills. (JOSE MELENDEZ DO) Review of Systems Review of Systems Constitutional: Denies fever or chills [] Eyes: Denies change in visual acuity, redness, or eye pain [] HENT: Denies nasal congestion or sore throat [] Respiratory: Denies cough or shortness of breath [] Cardiovascular: No additional information not addressed in HPI [] GI: Nausea, diarrhea.[] : Denies dysuria or hematuria [] Musculoskeletal: Denies back pain or joint pain [] Integument: Denies rash or skin lesions [] Neurologic: Denies headache, focal weakness or sensory changes [] Endocrine: Denies polyuria or polydipsia [] All other systems were reviewed and found to be within normal limits, except as documented in this note. (JOSE MELENDEZ DO) Current Medications Current Medications Current Medications Medications (Trade) Dose Ordered Sig/Yoko Start Time Stop Time Status Last Admin Dose Admin Sodium Chloride 1,000 ml @ 1,000 mls/hr 1X ONCE 12/04/18 17:30 12/04/18 18:29 12/04/18 17:46 1,000 MLS/HR (JOSE MELENDEZ DO) Allergies Allergies Allergies Coded Allergies Type Severity Reaction Last Updated Verified levofloxacin Allergy Intermediate 10/06/18 Yes vancomycin Allergy Unknown 12/04/18 Yes (JOSE MELENDEZ DO) Physical Exam Physical Exam Constitutional: Well developed, obese, well nourished, no acute distress, non- toxic appearance. [] HENT: Normocephalic, atraumatic, bilateral external ears normal, oropharynx dry , no oral exudates, nose normal. [] Eyes: PERRLA, EOMI, conjunctiva normal, no discharge. [] Neck: Normal range of motion, no tenderness, supple, no stridor. [] Cardiovascular:Heart rate regular rhythm, no murmur [] Lungs & Thorax: Bilateral breath sounds clear to auscultation [] Abdomen: Bowel sounds normal, soft, no tenderness, no masses, no pulsatile masses. [] Skin: Warm, dry, no erythema, no rash. [] Back: No tenderness, no CVA tenderness. [] Extremities: No tenderness, no cyanosis, no clubbing, ROM intact, no edema. [] Neurologic: Alert and oriented X 3, normal motor function, normal sensory function, no focal deficits noted. [] Psychologic: Affect normal, judgement normal, mood normal. [] (JOSE MELENDEZ DO) Current Patient Data Lab Results Laboratory Tests Test 12/04/18 15:29 12/04/18 17:18 12/04/18 17:29 Urine Collection Type Unknown Urine Color Straw Urine Clarity Clear Urine pH 5.0 Urine Specific [place] <=1.005 Urine Protein Neg (NEG-TRACE) Urine Glucose (UA) >=1000 mg/dL (NEG) Urine Ketones (Stick) Neg mg/dL (NEG) Urine Blood Neg (NEG) Urine Nitrite Neg (NEG) Urine Bilirubin Neg (NEG) Urine Urobilinogen Dipstick 0.2 mg/dL (0.2 mg/dL) Urine Leukocyte Esterase Neg (NEG) Urine RBC 0 /HPF (0-2) Urine WBC 1-4 /HPF (0-4) Urine Squamous Epithelial Cells Mod /LPF Urine Bacteria 0 /HPF (0-FEW) Glucose (Fingerstick) 593 mg/dL (70-99) *H White Blood Count 8.4 x10^3/uL (4.0-11.0) Red Blood Count 4.85 x10^6/uL (3.50-5.40) Hemoglobin 14.5 g/dL (12.0-15.5) Hematocrit 43.2 % (36.0-47.0) Mean Corpuscular Volume 89 fL (79-100) Mean Corpuscular Hemoglobin 30 pg (25-35) Mean Corpuscular Hemoglobin Concent 34 g/dL (31-37) Red Cell Distribution Width 15.4 % (11.5-14.5) H Platelet Count 220 x10^3/uL (140-400) Neutrophils (%) (Auto) 65 % (31-73) Lymphocytes (%) (Auto) 26 % (24-48) Monocytes (%) (Auto) 6 % (0-9) Eosinophils (%) (Auto) 1 % (0-3) Basophils (%) (Auto) 1 % (0-3) Neutrophils # (Auto) 5.5 x10^3uL (1.8-7.7) Lymphocytes # (Auto) 2.2 x10^3/uL (1.0-4.8) Monocytes # (Auto) 0.5 x10^3/uL (0.0-1.1) Eosinophils # (Auto) 0.1 x10^3/uL (0.0-0.7) Basophils # (Auto) 0.1 x10^3/uL (0.0-0.2) (JOSE MELENDEZ DO) EKG EKG [] (JOSE MELENDEZ DO) Radiology/Procedures Radiology/Procedures [] (JOSE MELENDEZ DO) Course & Med Decision Making Course & Med Decision Making Pertinent Labs and Imaging studies reviewed. (See chart for details) I have ordered 2 L normal saline with the patient as well as 10 units of regular insulin. Her initial blood sugar greater than 500. I'm signing the patient out to Dr. Jarvis at 1800 for further management and final disposition. [] (JOSE MELENDEZ DO) Course & Med Decision Making Patient's care was accepted from Dr. Melendez at 6:00 PM. Patient had received IV fluids as well as 10 units of IV insulin. Patient's blood sugar had been rechecked and was found to be 370. Patient was given a second dose of IV insulin , 5 units. Patient also given a second liter of IV fluids. Blood sugar was rechecked and was 392. At this point patient given an additional 6 units IV insulin and a third liter of fluids. Most recent blood sugar has returned at 317. Findings of workup have been reviewed with patient and I did discuss admission of the patient for inpatient management of her hyperglycemia. Patient states that she has an appointment with a provider tomorrow morning and states that she is not able to miss that appointment. She states that she will discuss management of her diabetes at that appointment. (JOSE L JARVIS Jr. DO) Dragon Disclaimer Dragon Disclaimer This electronic medical record was generated, in whole or in part, using a voice recognition dictation system. (JOSE MELENDEZ DO) Departure Departure: Impression: Primary Impression: Type 2 diabetes mellitus with hyperglycemia Disposition: HOME, SELF-CARE Condition: STABLE Referrals: EDIE MILLER (PCP) Patient Instructions: Type 2 Diabetes Mellitus, Adult Problem Qualifiers Primary Impression: Type 2 diabetes mellitus with hyperglycemia Diabetes mellitus chcf insulin use: unspecified chcf insulin use status Qualified Codes: E11.65 - Type 2 diabetes mellitus with hyperglycemia JOSE MELENDEZ DO Dec 04, 2018 18:05 JOSE L JARVIS Jr., DO Dec 04, 2018 22:49
[2018-12-04] MEDS ORDERED: ONDANSETRON PF 4 MG/2 ML VIAL. IV ONE (18:15)
[2018-12-04] MEDS ORDERED: INSULIN REGULAR 100 UNIT/ML 3ML VIAL. IV ONE ×3 (18:15→21:45)
[2018-12-04 18:21] LABS: ALBUMIN 3.3 g/dL (3.4-5.0); ALBUMIN/GLOBULIN RATIO 0.9 (1.0-1.7); CALCIUM 9.2 mg/dL (8.5-10.1); GFR 62.1; POTASSIUM 3.9 mmol/L (3.5-5.1); TOTAL BILIRUBIN 0.3 mg/dL (0.2-1.0)
[2018-12-04] MEDS ORDERED: KETOROLAC 30 MG/ML VIAL. IV ONE (19:00)
--- NOTE | 2018-12-04 20:12 | RAD ---
Indication:RT GROIN ADNEXAL PAIN, HX OF UT AND OVARIES REMOVED 2009 TECHNIQUE: Grayscale, color Doppler and spectral waveform images of the pelvis obtained. COMPARISON:None FINDINGS: Status post hysterectomy and oophorectomy. Bladder within normal limits. No masslike lesion seen in the bilateral adnexa. No free pelvic fluid. IMPRESSION: No acute findings. Electronically signed by: Sukhi Chauhan DO (12/04/2018 8:09 PM) [facility]
[2018-12-04 23:05] VITALS: BP 133/78
== END 2018-12-04 23:08 | disposition home or self-care (01) ==
LOC: ER 17:09
DX: E11.65 Type 2 diabetes mellitus with hyperglycemia (principal); R19.7 Diarrhea, unspecified; F41.9 Anxiety disorder, unspecified; F32.9 Major depressive disorder, single episode, unspecified; K21.9 Gastro-esophageal reflux disease without esophagitis; I10 Essential (primary) hypertension; Z87.440 Personal history of urinary (tract) infections; F17.210 Nicotine dependence, cigarettes, uncomplicated; Z88.1 Allergy status to other antibiotic agents
CPT/HCPCS: 36415; 76856; 80053; 81001; 82947; 85025; 96361; 96374; 96375; 96376; 99284; J1815; J1885; J2405; J7030

== ENCOUNTER 2019-03-16 19:54 | Emergency (ER) | payer BC ==
[~2019-03-16] VITALS: Ht 162.6 cm; Wt 80.7 kg
[2019-03-16] MEDS ORDERED: IV NORMAL SALINE 1,000ML 1,000 ML IV SCH (20:27)
[2019-03-16] MEDS ORDERED: ONDANSETRON PF 4 MG/2 ML VIAL. IV ONE (20:30)
[2019-03-16] MEDS ORDERED: IOHEXOL 300 MG/ML 75 ML VIAL. IV ONE (20:45)
[2019-03-16 20:46] LABS: BILIRUBIN,URINE NEG (NEG); CLARITY,URINE HAZY; COLOR,URINE AMBER; GLUCOSE,URINE NEG (NEG); NITRITE,URINE NEG (NEG); UROBILINOGEN,URINE 1 mg/dL (0.2 mg/dL)
[2019-03-16 20:47] LABS: BACTERIA,URINE FEW /HPF (0-FEW); RBC,URINE OCC /HPF (0-2); SQUAMOUS EPITHELIAL CELL,UR OCC /LPF
[2019-03-16 21:05] LABS: BASO # 0.1 x10^3/uL (0.0-0.2); BASO % 1 % (0-3); EOS # 0.1 x10^3/uL (0.0-0.7); EOS % 1 % (0-3); HEMOGLOBIN 14.3 g/dL (12.0-15.5); LYMPH % 28 % (24-48); MEAN CORPUSCULAR HEMOGLOBIN 30 pg (25-35); MEAN CORPUSCULAR HGB CONC 34 g/dL (31-37); MEAN CORPUSCULAR VOLUME 87 fL (79-100); MONO # 0.6 x10^3/uL (0.0-1.1); MONO % 6 % (0-9); NEUT # 6.9 x10^3uL (1.8-7.7); NEUT % 64 % (31-73); PLATELET COUNT 240 x10^3/uL (140-400); RED BLOOD COUNT 4.84 x10^6/uL (3.50-5.40); RED CELL DISTRIBUTION WIDTH 15.6 % (11.5-14.5); WHITE BLOOD COUNT 10.8 x10^3/uL (4.0-11.0)
[2019-03-16 21:24] LABS: ALBUMIN 3.9 g/dL (3.4-5.0); ALBUMIN/GLOBULIN RATIO 1.1 (1.0-1.7); CALCIUM 9.9 mg/dL (8.5-10.1); CREATININE 0.9 mg/dL (0.6-1.0); GFR 70.1; TOTAL BILIRUBIN 0.6 mg/dL (0.2-1.0); TOTAL PROTEIN 7.3 g/dL (6.4-8.2)
--- NOTE | 2019-03-16 21:28 | RAD ---
EXAM: Abdomen and pelvis CT with intravenous contrast. HISTORY: Pain. TECHNIQUE: Computed tomographic images of the abdomen and pelvis were obtained following the administration of 75 cc Omnipaque 300 intravenous contrast. Multiplanar reformatting was performed. *One or more of the following individualized dose reduction techniques were utilized for this examination: 1. Automated exposure control. 2. Adjustment of the mA and/or kV according to patient size. 3. Use of iterative reconstruction technique. COMPARISON: 10/17/2018. FINDINGS: Evaluation of the lower thorax demonstrates posterior dependent atelectasis. There is no infiltrate or pleural effusion. The heart is normal in size. No hepatic lesion is seen. The gallbladder is surgically absent. The pancreas is unremarkable. The spleen is mildly enlarged. There is a 2.4 cm left adrenal nodule, the attenuation which is consistent with a myelolipoma. The kidneys are unremarkable. The appendix is unremarkable. There is moderate proximal colonic gas and stool. There is no evidence of bowel obstruction or abnormal bowel wall thickening. The bladder is unremarkable. The uterus is surgically absent. The aorta is normal in caliber. There is no lymphadenopathy. There are postoperative changes involving the umbilicus. There is no suspicious osseous lesion. IMPRESSION: 1. No acute abdominal or pelvic finding. 2. Mild splenomegaly. 3. 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 Electronically signed by: Ale Paredes MD (03/16/2019 9:25 PM) [facility]
[2019-03-16] MEDS ORDERED: ONDA4TAB7 PO (21:41)
[2019-03-16] MEDS ORDERED: METR500T PO (21:41)
[2019-03-16] MEDS ORDERED: HYDR-3165 PO (21:41)
--- NOTE | 2019-03-16 21:42 | PHYS DOC ---
Past History Past Medical History: Anxiety, Depression, Diabetes, GERD, Hypertension, UTI, Other Past Surgical History: Cholecystectomy, Hysterectomy, Tonsillectomy, Other Smoking: Cigarettes, Less than 1pk/day Alcohol Use: None Drug Use: None Adult General Chief Complaint Chief Complaint: ABDOMINAL PAIN HPI HPI Patient is a 38-year-old female who presents with complaint of left lower quadrant pain that has been developing over the last couple of days. Patient states the pain is gotten worse throughout today and currently rates the pain an 8 out of 10. She indicates that she has had some nausea but no vomiting. She has had some intermittent loose stools since onset. She denies any fever but states that she has had some chills. Patient states that nothing improves her pain.[] Review of Systems Review of Systems Constitutional: Denies fever or chills [] Respiratory: Denies cough or shortness of breath [] Cardiovascular: No additional information not addressed in HPI [] GI: Complains of abdominal pain with nausea[] : Denies dysuria or hematuria [] Neurologic: Denies headache, focal weakness or sensory changes [] All other systems were reviewed and found to be within normal limits, except as documented in this note. Current Medications Current Medications Current Medications Medications (Trade) Dose Ordered Sig/Yoko Start Time Stop Time Status Last Admin Dose Admin Fentanyl Citrate (Fentanyl 2ml Vial) 25 mcg PRN Q15MIN PRN 03/16/19 20:30 03/17/19 20:29 03/16/19 20:50 25 MCG Iohexol (Omnipaque 300 Mg/ml) 75 ml 1X ONCE 03/16/19 20:45 03/16/19 20:48 DC 03/16/19 21:12 75 ML Ondansetron HCl (Zofran) 4 mg 1X ONCE 03/16/19 20:30 03/16/19 20:40 DC 03/16/19 20:50 4 MG Sodium Chloride 1,000 ml @ 1,000 mls/hr Q1H 03/16/19 20:27 03/16/19 21:26 DC 03/16/19 20:50 1,000 MLS/HR Allergies Allergies Allergies Coded Allergies Type Severity Reaction Last Updated Verified levofloxacin Allergy Intermediate 10/06/18 Yes vancomycin Allergy Unknown 12/04/18 Yes Physical Exam Physical Exam Constitutional: Well developed, well nourished, no acute distress, non-toxic appearance. [] HENT: Normocephalic, atraumatic, bilateral external ears normal, oropharynx moist, no oral exudates, nose normal. [] Eyes: PERRLA, EOMI, conjunctiva normal, no discharge. [] Neck: Normal range of motion, no tenderness, supple, no stridor. [] Cardiovascular:Heart rate regular rhythm, no murmur [] Lungs & Thorax: Bilateral breath sounds clear to auscultation [] Abdomen: Bowel sounds normal, soft, with left lower quadrant tenderness. [] Skin: Warm, dry, no erythema, no rash. [] Extremities: No tenderness, no cyanosis, no clubbing, ROM intact, no edema. [] Neurologic: Alert and oriented X 3, no focal deficits noted. [] Current Patient Data Vital Signs Vital Signs Date Time Temp Pulse Resp B/P (MAP) Pulse Ox O2 Delivery O2 Flow Rate FiO2 03/16/19 20:50 18 95 Room Air 03/16/19 20:00 97.6 101 Lab Results Laboratory Tests Test 03/16/19 20:00 03/16/19 20:12 03/16/19 20:45 Urine Collection Type Unknown Urine Color [place] Urine Clarity Hazy Urine pH 5.0 Urine Specific [place] 1.025 Urine Protein Trace (NEG-TRACE) Urine Glucose (UA) Neg mg/dL (NEG) Urine Ketones (Stick) Trace mg/dL (NEG) Urine Blood Trace (NEG) Urine Nitrite Neg (NEG) Urine Bilirubin Neg (NEG) Urine Urobilinogen Dipstick 1 mg/dL (0.2 mg/dL) Urine Leukocyte Esterase Trace (NEG) Urine RBC Occ /HPF (0-2) Urine WBC 1-4 /HPF (0-4) Urine Squamous Epithelial Cells Occ /LPF Urine Bacteria Few /HPF (0-FEW) POC Urine HCG, Qualitative hcg negative (Negative) White Blood Count 10.8 x10^3/uL (4.0-11.0) Red Blood Count 4.84 x10^6/uL (3.50-5.40) Hemoglobin 14.3 g/dL (12.0-15.5) Hematocrit 42.0 % (36.0-47.0) Mean Corpuscular Volume 87 fL (79-100) Mean Corpuscular Hemoglobin 30 pg (25-35) Mean Corpuscular Hemoglobin Concent 34 g/dL (31-37) Red Cell Distribution Width 15.6 % (11.5-14.5) H Platelet Count 240 x10^3/uL (140-400) Neutrophils (%) (Auto) 64 % (31-73) Lymphocytes (%) (Auto) 28 % (24-48) Monocytes (%) (Auto) 6 % (0-9) Eosinophils (%) (Auto) 1 % (0-3) Basophils (%) (Auto) 1 % (0-3) Neutrophils # (Auto) 6.9 x10^3uL (1.8-7.7) Lymphocytes # (Auto) 3.0 x10^3/uL (1.0-4.8) Monocytes # (Auto) 0.6 x10^3/uL (0.0-1.1) Eosinophils # (Auto) 0.1 x10^3/uL (0.0-0.7) Basophils # (Auto) 0.1 x10^3/uL (0.0-0.2) Sodium Level 142 mmol/L (136-145) Potassium Level 4.0 mmol/L (3.5-5.1) Chloride Level 105 mmol/L (98-107) Carbon Dioxide Level 30 mmol/L (21-32) Anion Gap 7 (6-14) Blood Urea Nitrogen 13 mg/dL (7-20) Creatinine 0.9 mg/dL (0.6-1.0) Estimated GFR (Cockcroft-Gault) 70.1 BUN/Creatinine Ratio 14 (6-20) Glucose Level 103 mg/dL (70-99) H Calcium Level 9.9 mg/dL (8.5-10.1) Total Bilirubin 0.6 mg/dL (0.2-1.0) Aspartate Amino Transferase (AST) 36 U/L (15-37) Alanine Aminotransferase (ALT) 77 U/L (14-59) H Alkaline Phosphatase 99 U/L (46-116) Total Protein 7.3 g/dL (6.4-8.2) Albumin 3.9 g/dL (3.4-5.0) Albumin/Globulin Ratio 1.1 (1.0-1.7) Lipase 53 U/L (73-393) L EKG EKG [] Radiology/Procedures Radiology/Procedures [] Impressions: PROCEDURE: CT ABD PELV W/ IV CONTRST ONLY EXAM: Abdomen and pelvis CT with intravenous contrast. HISTORY: Pain. TECHNIQUE: Computed tomographic images of the abdomen and pelvis were obtained following the administration of 75 cc Omnipaque 300 intravenous contrast. Multiplanar reformatting was performed. *One or more of the following individualized dose reduction techniques were utilized for this examination: 1. Automated exposure control. 2. Adjustment of the mA and/or kV according to patient size. 3. Use of iterative reconstruction technique. COMPARISON: 10/17/2018. FINDINGS: Evaluation of the lower thorax demonstrates posterior dependent atelectasis. There is no infiltrate or pleural effusion. The heart is normal in size. No hepatic lesion is seen. The gallbladder is surgically absent. The pancreas is unremarkable. The spleen is mildly enlarged. There is a 2.4 cm left adrenal nodule, the attenuation which is consistent with a myelolipoma. The kidneys are unremarkable. The appendix is unremarkable. There is moderate proximal colonic gas and stool. There is no evidence of bowel obstruction or abnormal bowel wall thickening. The bladder is unremarkable. The uterus is surgically absent. The aorta is normal in caliber. There is no lymphadenopathy. There are postoperative changes involving the umbilicus. There is no suspicious osseous lesion. IMPRESSION: 1. No acute abdominal or pelvic finding. 2. Mild splenomegaly. 3. 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 Electronically signed by: Ale Paredes MD (03/16/2019 9:25 PM) [facility] DICTATED AND SIGNED BY: ALE PAREDES MD DATE: 03/16/192124 Course & Med Decision Making Course & Med Decision Making Pertinent Labs and Imaging studies reviewed. (See chart for details) [] Dragon Disclaimer Dragon Disclaimer This electronic medical record was generated, in whole or in part, using a voice recognition dictation system. Departure Departure: Impression: Primary Impression: LLQ abdominal pain Disposition: 01 HOME, SELF-CARE Condition: STABLE Referrals: EDIE MILLER (PCP) Patient Instructions: Abdominal Pain Scripts Ondansetron Hcl (ZOFRAN) 4 Mg Tablet 4 MG PO Q6HRS PRN for NAUSEA, #12 TAB Prov: JOSE L BUCKLEY Jr. DO 03/16/19 Hydrocodone Bit/Acetaminophen (NORCO 5-325 TABLET) 1 Each Tablet 1 TAB PO PRN Q6HRS PRN for PAIN, #14 TAB 0 Refills Prov: JOSE L BUCKLEY Jr. DO 03/16/19 Metronidazole (FLAGYL) 500 Mg Tablet 1 TAB PO TID for infection, #30 TAB Prov: JOSE L BUCKLEY Jr. DO 03/16/19 JOSE L BUCKLEY Jr. DO Mar 16, 2019 21:42
[2019-03-16 21:50] VITALS: BP 105/65
== END 2019-03-16 21:56 | disposition home or self-care (01) ==
LOC: ER 19:54
DX: R10.32 Left lower quadrant pain (principal); F41.9 Anxiety disorder, unspecified; F32.9 Major depressive disorder, single episode, unspecified; E11.9 Type 2 diabetes mellitus without complications; K21.9 Gastro-esophageal reflux disease without esophagitis; I10 Essential (primary) hypertension; F17.210 Nicotine dependence, cigarettes, uncomplicated; D17.71 Benign lipomatous neoplasm of kidney; R16.1 Splenomegaly, not elsewhere classified; Z87.440 Personal history of urinary (tract) infections; Z90.49 Acquired absence of other specified parts of digestive tract; Z90.710 Acquired absence of both cervix and uterus; Z88.1 Allergy status to other antibiotic agents
CPT/HCPCS: 36415; 74177; 80053; 81001; 81025; 83690; 85025; 87086; 99285; J2405; J3010; Q9967; J7030

== ENCOUNTER 2019-03-17 23:57 | Inpatient (IN) | payer BC ==
[~2019-03-17] VITALS: Ht 162.6 cm; Wt 83.7 kg
[~2019-03-17 23:57] MED LIST changes: +METR500T PO
[2019-03-18] VITALS (11 sets, daily range): BP systolic 75–100; BP diastolic 43–67
[2019-03-18] MEDS ORDERED: IV NORMAL SALINE 1,000ML 1,000 ML IV SCH (00:09)
[2019-03-18] MEDS ORDERED: DEXTROSE 50% 25 GM / 50ML DISP.SYRIN. IV ONE ×2 (00:56→01:00)
[2019-03-18] MEDS ORDERED: DEXTROSE ORAL GEL 15 GM TUBE. PO ONE (01:00)
[2019-03-18] MEDS ORDERED: ONDANSETRON PF 4 MG/2 ML VIAL. IV ONE (01:00)
[2019-03-18 01:04] LABS: BASO # 0.1 x10^3/uL (0.0-0.2); BASO % 0 % (0-3); EOS # 0.2 x10^3/uL (0.0-0.7); EOS % 1 % (0-3); HEMATOCRIT 42.6 % (36.0-47.0); HEMOGLOBIN 14.4 g/dL (12.0-15.5); LYMPH # 5.2 x10^3/uL (1.0-4.8); LYMPH % 31 % (24-48); MEAN CORPUSCULAR HEMOGLOBIN 29 pg (25-35); MEAN CORPUSCULAR HGB CONC 34 g/dL (31-37); MEAN CORPUSCULAR VOLUME 87 fL (79-100); MONO # 0.7 x10^3/uL (0.0-1.1); MONO % 4 % (0-9); NEUT # 10.6 x10^3uL (1.8-7.7); NEUT % 63 % (31-73); PLATELET COUNT 363 x10^3/uL (140-400); WHITE BLOOD COUNT 16.8 x10^3/uL (4.0-11.0)
[2019-03-18 01:12] LABS: ALBUMIN 4.1 g/dL (3.4-5.0); CALCIUM 10.1 mg/dL (8.5-10.1); CREATININE 0.9 mg/dL (0.6-1.0); GFR 70.1; TOTAL BILIRUBIN 0.8 mg/dL (0.2-1.0); TOTAL PROTEIN 8.1 g/dL (6.4-8.2)
[2019-03-18 01:50] LABS: % ATYL 1 % (0-0); % BANDS 2 % (0-9); % EOS 3 % (0-5); % LYMPHS 25 % (24-48); % MONOS 2 % (0-10); % SEGS 67 % (35-66)
[2019-03-18 01:52] LABS: PLT ESTIMATE ADEQUATE (ADEQUATE); TOXIC GRANULATION PRESENT
[2019-03-18 01:53] LABS: ANISOCYTOSIS SLIGHT
[2019-03-18] MEDS ORDERED: IV DEXTROSE 5 %-0.45 % NACL 1,000 ML IV ONE (02:00)
--- NOTE | 2019-03-18 02:16 | PHYS DOC ---
Past History Past Medical History: Anxiety, Depression, Diabetes, GERD, Hypertension, UTI, Other Past Surgical History: Cholecystectomy, Hysterectomy, Tonsillectomy, Other Smoking: Cigarettes, Less than 1pk/day Alcohol Use: None Drug Use: None Adult General Chief Complaint Chief Complaint: HYPOGLYCEMIA [facility] HPI Patient is a 38-year-old female who presents with complaint that she just wasn't feeling well and checked her blood sugar and found that it was 20. At this point patient checked into the hospital and our Accu-Chek demonstrated a blood sugar of 30. Patient was given food as well as D50. Patient was seen here last night for a complaint of lower abdominal pain and she states that she is still having left lower abdominal pain. She does admit to some nausea but no vomiting. Patient does have history of diabetes and states that she has not really eaten today because she was at a and has not felt like eating.[] Review of Systems Review of Systems Constitutional: Denies fever or chills [] Respiratory: Denies cough or shortness of breath [] Cardiovascular: No additional information not addressed in HPI [] GI: Complains of left lower abdominal pain with nausea. Denies vomiting or diarrhea [] Integument: Denies rash or skin lesions [] Neurologic: Denies headache, focal weakness or sensory changes [] All other systems were reviewed and found to be within normal limits, except as documented in this note. Current Medications Current Medications Current Medications Medications (Trade) Dose Ordered Sig/Yoko Start Time Stop Time Status Last Admin Dose Admin Dextrose (Dextrose 50%-Water Syringe) 25 gm 1X ONCE 03/18/19 01:00 03/18/19 01:04 DC 03/18/19 01:00 25 GM Dextrose/Sodium Chloride 1,000 ml @ 75 mls/hr 1X ONCE 03/18/19 02:00 03/18/19 15:19 03/18/19 01:56 75 MLS/HR Fentanyl Citrate (Fentanyl 2ml Vial) 100 mcg STK-MED ONCE 03/18/19 01:59 03/18/19 02:00 DC Glucose (Insta-Glucose) 30 gm 1X ONCE 03/18/19 01:00 03/18/19 01:01 DC 03/17/19 23:40 30 GM Ondansetron HCl (Zofran) 4 mg 1X ONCE 03/18/19 01:00 03/18/19 01:01 DC 03/18/19 00:33 4 MG Sodium Chloride 1,000 ml @ 1,000 mls/hr Q1H 03/18/19 00:09 03/18/19 01:08 DC 03/18/19 00:29 1,000 MLS/HR Allergies Allergies Allergies Coded Allergies Type Severity Reaction Last Updated Verified levofloxacin Allergy Intermediate 10/06/18 Yes vancomycin Allergy Unknown 12/04/18 Yes Physical Exam Physical Exam Constitutional: Well developed, well nourished, no acute distress, non-toxic appearance. [] HENT: Normocephalic, atraumatic, bilateral external ears normal, oropharynx moist, no oral exudates, nose normal. [] Eyes: PERRLA, EOMI, conjunctiva normal, no discharge. [] Neck: Normal range of motion, no tenderness, supple, no stridor. [] Cardiovascular:Heart rate regular rhythm, no murmur [] Lungs & Thorax: Bilateral breath sounds clear to auscultation [] Abdomen: Bowel sounds normal, soft, with left lower abdominal tenderness. [] Skin: Warm, dry, no erythema, no rash. [] Extremities: No tenderness, no cyanosis, no clubbing, ROM intact, no edema. [] Neurologic: Alert and oriented X 3, no focal deficits noted. [] Current Patient Data Lab Results Laboratory Tests Test 03/17/19 23:50 03/18/19 00:04 03/18/19 00:38 03/18/19 00:55 White Blood Count 16.8 x10^3/uL (4.0-11.0) #H Red Blood Count 4.90 x10^6/uL (3.50-5.40) Hemoglobin 14.4 g/dL (12.0-15.5) Hematocrit 42.6 % (36.0-47.0) Mean Corpuscular Volume 87 fL (79-100) Mean Corpuscular Hemoglobin 29 pg (25-35) Mean Corpuscular Hemoglobin Concent 34 g/dL (31-37) Red Cell Distribution Width 16.0 % (11.5-14.5) H Platelet Count 363 x10^3/uL (140-400) Neutrophils (%) (Auto) 63 % (31-73) Lymphocytes (%) (Auto) 31 % (24-48) Monocytes (%) (Auto) 4 % (0-9) Eosinophils (%) (Auto) 1 % (0-3) Basophils (%) (Auto) 0 % (0-3) Neutrophils # (Auto) 10.6 x10^3uL (1.8-7.7) H Lymphocytes # (Auto) 5.2 x10^3/uL (1.0-4.8) H Monocytes # (Auto) 0.7 x10^3/uL (0.0-1.1) Eosinophils # (Auto) 0.2 x10^3/uL (0.0-0.7) Basophils # (Auto) 0.1 x10^3/uL (0.0-0.2) Segmented Neutrophils % 67 % (35-66) H Band Neutrophils % 2 % (0-9) Lymphocytes % 25 % (24-48) Atypical Lymphocytes % (Manual) 1 % (0-0) H Monocytes % 2 % (0-10) Eosinophils % 3 % (0-5) Toxic Granulation Present Platelet Estimate Adequate (ADEQUATE) Large Platelets Occ Anisocytosis Slight Sodium Level 144 mmol/L (136-145) Potassium Level 3.0 mmol/L (3.5-5.1) L Chloride Level 106 mmol/L (98-107) Carbon Dioxide Level 29 mmol/L (21-32) Anion Gap 9 (6-14) Blood Urea Nitrogen 11 mg/dL (7-20) Creatinine 0.9 mg/dL (0.6-1.0) Estimated GFR (Cockcroft-Gault) 70.1 BUN/Creatinine Ratio 12 (6-20) Glucose Level 34 mg/dL (70-99) *L Calcium Level 10.1 mg/dL (8.5-10.1) Total Bilirubin 0.8 mg/dL (0.2-1.0) Aspartate Amino Transferase (AST) 38 U/L (15-37) H Alanine Aminotransferase (ALT) 77 U/L (14-59) H Alkaline Phosphatase 100 U/L (46-116) Total Protein 8.1 g/dL (6.4-8.2) Albumin 4.1 g/dL (3.4-5.0) Albumin/Globulin Ratio 1.0 (1.0-1.7) Glucose (Fingerstick) 30 mg/dL (70-99) *L 57 mg/dL (70-99) L 13 mg/dL (70-99) *L Test 03/18/19 01:20 03/18/19 01:52 Glucose (Fingerstick) 75 mg/dL (70-99) 30 mg/dL (70-99) *L EKG EKG [] Radiology/Procedures Radiology/Procedures [] Course & Med Decision Making Course & Med Decision Making Pertinent Labs and Imaging studies reviewed. (See chart for details) Patient moved to room upon arrival was evaluated by your medical staff after which an IV was established and blood work was drawn. Patient given D50 as well as apple juice and food. Patient did have repeat blood glucose checks, demonstrating blood sugar as low as 13. At this point patient was given an amp of D50 and blood sugar rechecked again after about 20 minutes and findings were blood sugar of 30. At this point, patient was initiated on D5 and a half normal saline at 75 ML's per hour. Patient agrees to admission. Dragon Disclaimer Dragon Disclaimer This electronic medical record was generated, in whole or in part, using a voice recognition dictation system. Departure Departure: Impression: Primary Impression: Hypoglycemic episode in patient with diabetes mellitus Disposition: ADMITTED INPATIENT Admitting Physician: Curtis Miranda Condition: IMPROVED Referrals: EDIE MILLER (PCP) JOSE L BUCKLEY Jr. DO Mar 18, 2019 02:16
[2019-03-18] MEDS ORDERED: ONDANSETRON PF 4 MG/2 ML VIAL. IV PRN (02:30)
--- NOTE | 2019-03-18 03:20 | NUR ---
The patient, SANFORD RANDHAWA, 38 y/o, F admitted by GIANNA VILLATORO MD, was given written information regarding hospital policies, unit procedures and contact persons. Valuables were checked and logged. Call light in place. Will continue to monitor.
[2019-03-18] MEDS: DEXTROSE 50% 25 GM / 50ML DISP.SYRIN. IV PRN ×3 (03:27→04:37)
[2019-03-18] MEDS ORDERED: IV DEXTROSE 5 %-0.45 % NACL 1,000 ML IV SCH (03:30)
[2019-03-18] MEDS ORDERED: DESV50TA PO (04:43)
[2019-03-18] MEDS ORDERED: IV DEXTROSE 10% 1,000 ML IV SCH (05:00)
--- NOTE | 2019-03-18 05:15 | NUR ---
Pt states, "I only took one metformin today, and I barely ate."
[2019-03-18 05:27] LABS: BARBITURATES NEG (NEG); BENZODIAZEPINES POS (NEG); CANNABINOIDS NEG (NEG); COCAINE NEG (NEG); METHADONE NEG (NEG); OPIATES POS (NEG); PHENCYCLIDINE NEG (NEG)
[2019-03-18 05:29] LABS: AMPHETAMINE/METHAMPHETAMINE NEG (NEG)
[2019-03-18] MEDS ORDERED: TRAZ-86 PO (05:43)
[2019-03-18] MEDS ORDERED: ALPR1TAB2 PO (05:46)
[2019-03-18] MEDS ORDERED: GABA-586 PO (05:46)
[2019-03-18] MEDS ORDERED: ACAR25TA PO (05:46)
[2019-03-18] MEDS ORDERED: METF500T9 PO (05:46)
[2019-03-18] MEDS: POTASSIUM CHLORIDE 20 MEQ TABLET.ER. PO SCH ×2 (07:18→08:50)
--- NOTE | 2019-03-18 08:49 | HP ---
ADMIT DATE: 03/18/2019 ATTENDING PHYSICIAN: Gianna Villatoro MD CHIEF COMPLAINT: Low blood sugar and weakness. HISTORY OF PRESENT ILLNESS: The patient is a 38-year-old female with known type 2 diabetes. She had gone to a . She had taken her oral hypoglycemics consisting of acarbose and metformin. Her sugars were low. It is unclear whether she took an extra dose. She states that she did not eat her meds. She was fairly straightforward and did not have any underlying secondary intent by the time I saw her. In any event, they had trouble keeping her sugars up. Sugars were in the 20s and 30s, D5W along with D50 boluses were given several times throughout the night. By the time I saw her the next morning, she was alert and talking. She had eaten breakfast, yet sugars in the low 100s. We will see what her sugars goes after we stopped the fluids and get her on some meds. PAST MEDICAL HISTORY: Significant for anxiety, depression, type 2 diabetes, gastroesophageal reflux disease, hypertension, urinary tract infection. PAST SURGICAL HISTORY: Includes cholecystectomy, tonsillectomy, and hysterectomy. SOCIAL HISTORY: She is a smoker 1 pack of cigarettes daily. No alcohol use. She has 3 children, ages 14, 18 and 19. FAMILY HISTORY: Noncontributory at this time. REVIEW OF SYSTEMS: Significant for the weakness and low blood sugars. She denied any recent fevers, chills, sweats, chest pain or palpitations. MEDICATIONS: Previously include metformin 1000 mg daily, Xanax, Desyrel at bedtime and venlafaxine. PHYSICAL EXAMINATION: GENERAL: When I saw her, this is a pleasant young female. VITAL SIGNS: Showed a blood pressure of 87/66, pulse is 58 and regular. She was afebrile. HEENT: Head is without trauma. Pupils are reactive. Sclerae are nonicteric. The oropharynx is clear. NECK: Supple. No bruits identified. LUNGS: Otherwise clear. CARDIOVASCULAR: Show regular heart tones. No obvious gallops. Peripheral pulses are palpable and full. ABDOMEN: Soft, scaphoid, nontender, no organomegaly. Bowel sounds are hypoactive. EXTREMITIES: Showed no cyanosis or edema. NEUROLOGIC: Findings focally intact. Speech is fluent. PERTINENT LABORATORY STUDIES: The last 5 sugars throughout the foot drill operator were 80, 72, 73, 73 and 105 mg/dL. Hemoglobin was 14.4 g/dL with white count of 16,800. ASSESSMENT: 1. A 38-year-old female, type 2 diabetic with symptomatic hypoglycemia. 2. Type 2 diabetes mellitus. 3. Underlying depression with anxiety. 4. Chronic obstructive pulmonary disease. PLAN: 1. Admit to the ICU. 2. 5% dextrose and later 10% dextrose were administered. 3. Hourly Accu-Cheks. 4. Obviously oral hypoglycemics have been held. 5. She will have followup appointment with her wrapper stemmer hand, scheduled to see her, but she has not made the appointment yet. 6. Diabetic diet as tolerated. GIANNA VILLATORO MD DR: NAZ/andrés JOB#: [id number] / [id number] SOFIYA Hooks MD
--- NOTE | 2019-03-18 12:22 | NUR ---
Discharge to home via ambulation accompanied by staff. Alert and oriented, vs stable, blood sugar stable, no c/o discomfort at this time. Sl x2 dc'ed, tolerated procedure well. Discharge plan and hypoglycemia teaching given and explained to pt. Verbalized understanding.
--- NOTE | 2019-03-18 18:22 | DS ---
DATE OF DISCHARGE: 03/18/2019 ATTENDING PHYSICIAN: Dr. Villatoro. FINAL DISCHARGE DIAGNOSES: 1. Symptomatic hypoglycemia. 2. Type 2 diabetes mellitus. 3. Mild chronic obstructive pulmonary disease. 4. Underlying depression with anxiety. HISTORY AND PHYSICAL: This is a 38-year-old female with known diabetes. She was taking acarbose along with metformin. She was dizzy and became quite hypoglycemic. In the ED, sugars were in the 20s and 30s. Several ampules of 50% dextrose solution were administered along with IV hydration. She was still marginal. She was brought in overnight for further treatment and evaluation and admitted with hypoglycemia. She states that she has not taken excess amounts, although compliance is questionable. PHYSICAL EXAMINATION: Please see the dictated note. PERTINENT LABORATORY AND X-RAY STUDIES: Chemistry panel was unremarkable. However, subsequent blood sugars were drawn and she did require overnight D5W and eventually switched to 10% dextrose solution to maintain adequate sugar. Her oral hypoglycemics were obviously held. Diet was advanced. She did well. By the time I saw her the next morning, she was feeling better and wanted to go home. She ate some breakfast and ate all of her breakfast on her tray. We did record 3 subsequent blood sugars off of the IV. They were all in the 105-110 range. She felt well clinically and wanted to go home. I felt this is reasonable. At this time, she should continue her Xanax, Desyrel and venlafaxine. For now, I will have her hold the metformin and the acarbose. She has a followup visit scheduled to see an blood or blood bank technician on , 03/23/2019. I encouraged her to keep the appointment. The patient was then discharged from our hospital in a stable condition with explicit instructions and followup care. GIANNA VILLATORO MD DR: NAZ/andrés JOB#: [id number] / [id number] SOFIYA Hooks MD
== END 2019-03-18 12:22 | disposition home or self-care (01) | DRG 639 ==
LOC: ER 23:57 → ICU 03-18 02:10
PROVIDERS: ADMIT Hospitalist; ATTEND Hospitalist
DX: E11.649 Type 2 diabetes mellitus with hypoglycemia without coma (principal); F17.210 Nicotine dependence, cigarettes, uncomplicated; F32.9 Major depressive disorder, single episode, unspecified; F41.9 Anxiety disorder, unspecified; I10 Essential (primary) hypertension; J44.9 Chronic obstructive pulmonary disease, unspecified; K21.9 Gastro-esophageal reflux disease without esophagitis; Z90.710 Acquired absence of both cervix and uterus; Z90.49 Acquired absence of other specified parts of digestive tract; Z87.440 Personal history of urinary (tract) infections; Z79.899 Other long term (current) drug therapy; Z88.8 Allergy status to other drugs, medicaments and biological substances
CPT/HCPCS: 36415; 74177; 80053; 80307; 81001; 81025; 82947; 83690; 85007; 85025; 87086; 87641; 96361; 96365; 96375; 96376; J2405; J3010; Q9967; 99285-25; J7030

== ENCOUNTER 2019-03-27 18:12 | Emergency (ER) | payer BC ==
[~2019-03-27] VITALS: Ht 162.6 cm; Wt 81.6 kg
[~2019-03-27 18:12] MED LIST changes: +ACAR25TA PO; +ALPR1TAB2 PO; +DESV50TA PO; +GABA-586 PO; +METF500T9 PO; +TRAZ-86 PO
[2019-03-27] MEDS ORDERED: IV NORMAL SALINE 1,000ML 1,000 ML IV ONE (18:30)
[2019-03-27 19:02] LABS: BASO # 0.1 x10^3/uL (0.0-0.2); BASO % 1 % (0-3); EOS # 0.2 x10^3/uL (0.0-0.7); EOS % 1 % (0-3); HEMATOCRIT 41.1 % (36.0-47.0); HEMOGLOBIN 14.1 g/dL (12.0-15.5); LYMPH # 3.6 x10^3/uL (1.0-4.8); LYMPH % 31 % (24-48); MEAN CORPUSCULAR HEMOGLOBIN 30 pg (25-35); MEAN CORPUSCULAR HGB CONC 34 g/dL (31-37); MEAN CORPUSCULAR VOLUME 86 fL (79-100); MONO # 0.6 x10^3/uL (0.0-1.1); MONO % 5 % (0-9); NEUT # 7.1 x10^3uL (1.8-7.7); NEUT % 62 % (31-73); PLATELET COUNT 252 x10^3/uL (140-400); RED BLOOD COUNT 4.76 x10^6/uL (3.50-5.40); RED CELL DISTRIBUTION WIDTH 15.5 % (11.5-14.5); WHITE BLOOD COUNT 11.5 x10^3/uL (4.0-11.0)
[2019-03-27 19:13] LABS: BILIRUBIN,URINE NEG (NEG); CLARITY,URINE HAZY; COLOR,URINE YELLOW; GLUCOSE,URINE NEG (NEG)
[2019-03-27 19:14] LABS: BACTERIA,URINE FEW /HPF (0-FEW); NITRITE,URINE NEG (NEG); SQUAMOUS EPITHELIAL CELL,UR OCC /LPF; UROBILINOGEN,URINE 0.2 mg/dL (0.2 mg/dL)
[2019-03-27 19:15] LABS: ALBUMIN 3.9 g/dL (3.4-5.0); ALBUMIN/GLOBULIN RATIO 1.1 (1.0-1.7); CALCIUM 9.5 mg/dL (8.5-10.1); CREATININE 0.8 mg/dL (0.6-1.0); GFR 80.3; TOTAL BILIRUBIN 0.3 mg/dL (0.2-1.0); TOTAL PROTEIN 7.6 g/dL (6.4-8.2)
[2019-03-27] MEDS ORDERED: DEXTROSE 50% 25 GM / 50ML DISP.SYRIN. IV ONE ×3 (19:25→20:30)
[2019-03-27] MEDS ORDERED: MORPHINE SULFATE 2 MG/ML DISP.SYRIN. IV ONE (19:30)
[2019-03-27] MEDS ORDERED: ONDANSETRON PF 4 MG/2 ML VIAL. IV ONE (19:30)
[2019-03-27] MEDS ORDERED: IOHEXOL 300 MG/ML 75 ML VIAL. IV ONE (19:30)
--- NOTE | 2019-03-27 19:35 | PHYS DOC ---
Past History Past Medical History: Anxiety, COPD, Depression, Diabetes, GERD, Hypertension, UTI, Other Past Surgical History: Cholecystectomy, Hysterectomy, Tonsillectomy, Other Smoking: Cigarettes, Less than 1pk/day Alcohol Use: None Drug Use: None Adult General Chief Complaint Chief Complaint: BLOOD SUGAR PROBLEM HPI HPI 38-year-old female presents with low blood sugar. The patient has a continuous blood sugar monitor indicating that she might be getting low BS. The patient went ahead and took her normal dose of insulin but then ate an entire meal. She has continued to feel like her blood sugar might be low, so she came to the emergency room. On arrival her blood sugar was 70. The patient tells me that she has had left lower quadrant abdominal pain for last 2 days. It has increased this afternoon and evening. She has a history of diverticulosis. She has not had a fever or chills at home. She denies bloody stools, but states that her stool color is correctional substance abuse counselor than normal. She has not had any nausea or vomiting. She is eating and drinking normally. Review of Systems Review of Systems Constitutional: Denies fever or chills. Low blood sugar. [] Eyes: Denies change in visual acuity, redness, or eye pain [] HENT: Denies nasal congestion or sore throat [] Respiratory: Denies cough or shortness of breath [] Cardiovascular: No additional information not addressed in HPI [] GI: Left lower quadrant abdominal pain. Denies nausea, vomiting, bloody stools or diarrhea [] : Denies dysuria or hematuria [] Musculoskeletal: Denies back pain or joint pain [] Integument: Denies rash or skin lesions [] Neurologic: Denies headache, focal weakness or sensory changes [] Endocrine: Denies polyuria or polydipsia [] All other systems were reviewed and found to be within normal limits, except as documented in this note. Current Medications Current Medications Current Medications Medications (Trade) Dose Ordered Sig/Yoko Start Time Stop Time Status Last Admin Dose Admin Dextrose (Dextrose 50%-Water Syringe) 25 gm STK-MED ONCE 03/27/19 19:25 03/27/19 19:26 DC Sodium Chloride 1,000 ml @ 1,000 mls/hr 1X ONCE 03/27/19 18:30 03/27/19 19:29 03/27/19 18:30 1,000 MLS/HR Allergies Allergies Allergies Coded Allergies Type Severity Reaction Last Updated Verified levofloxacin Allergy Intermediate 10/06/18 Yes vancomycin Allergy Intermediate 03/18/19 Yes Physical Exam Physical Exam Constitutional: Well developed, well nourished, no acute distress, non-toxic appearance. [] HENT: Normocephalic, atraumatic, bilateral external ears normal, oropharynx moist, no oral exudates, nose normal. [] Eyes: PERRLA, EOMI, conjunctiva normal, no discharge. [] Neck: Normal range of motion, no tenderness, supple, no stridor. [] Cardiovascular:Heart rate regular rhythm, no murmur [] Lungs & Thorax: Bilateral breath sounds clear to auscultation [] Abdomen: Bowel sounds normal, soft, moderate LLQ tenderness, no masses, no pulsatile masses. [] Skin: Warm, dry, no erythema, no rash. [] Back: No tenderness, no CVA tenderness. [] Extremities: No tenderness, no cyanosis, no clubbing, ROM intact, no edema. [] Neurologic: Alert and oriented X 3, normal motor function, normal sensory function, no focal deficits noted. [] Psychologic: Affect normal, judgement normal, mood anxious [] Current Patient Data Vital Signs Vital Signs Date Time Temp Pulse Resp B/P (MAP) Pulse Ox O2 Delivery O2 Flow Rate FiO2 03/27/19 18:25 98.0 98 18 99 Room Air Lab Results Laboratory Tests Test 03/27/19 18:33 03/27/19 18:37 03/27/19 19:23 White Blood Count 11.5 x10^3/uL (4.0-11.0) H Red Blood Count 4.76 x10^6/uL (3.50-5.40) Hemoglobin 14.1 g/dL (12.0-15.5) Hematocrit 41.1 % (36.0-47.0) Mean Corpuscular Volume 86 fL (79-100) Mean Corpuscular Hemoglobin 30 pg (25-35) Mean Corpuscular Hemoglobin Concent 34 g/dL (31-37) Red Cell Distribution Width 15.5 % (11.5-14.5) H Platelet Count 252 x10^3/uL (140-400) Neutrophils (%) (Auto) 62 % (31-73) Lymphocytes (%) (Auto) 31 % (24-48) Monocytes (%) (Auto) 5 % (0-9) Eosinophils (%) (Auto) 1 % (0-3) Basophils (%) (Auto) 1 % (0-3) Neutrophils # (Auto) 7.1 x10^3uL (1.8-7.7) Lymphocytes # (Auto) 3.6 x10^3/uL (1.0-4.8) Monocytes # (Auto) 0.6 x10^3/uL (0.0-1.1) Eosinophils # (Auto) 0.2 x10^3/uL (0.0-0.7) Basophils # (Auto) 0.1 x10^3/uL (0.0-0.2) Sodium Level 145 mmol/L (136-145) Potassium Level 3.0 mmol/L (3.5-5.1) L Chloride Level 107 mmol/L (98-107) Carbon Dioxide Level 28 mmol/L (21-32) Anion Gap 10 (6-14) Blood Urea Nitrogen 11 mg/dL (7-20) Creatinine 0.8 mg/dL (0.6-1.0) Estimated GFR (Cockcroft-Gault) 80.3 BUN/Creatinine Ratio 14 (6-20) Glucose Level 61 mg/dL (70-99) L Calcium Level 9.5 mg/dL (8.5-10.1) Total Bilirubin 0.3 mg/dL (0.2-1.0) Aspartate Amino Transferase (AST) 13 U/L (15-37) L Alanine Aminotransferase (ALT) 44 U/L (14-59) Alkaline Phosphatase 92 U/L (46-116) Total Protein 7.6 g/dL (6.4-8.2) Albumin 3.9 g/dL (3.4-5.0) Albumin/Globulin Ratio 1.1 (1.0-1.7) Urine Collection Type Unknown Urine Color Yellow Urine Clarity Hazy Urine pH 5.5 Urine Specific [place] >=1.030 Urine Protein 30 mg/dl (NEG-TRACE) Urine Glucose (UA) Neg mg/dL (NEG) Urine Ketones (Stick) Trace mg/dL (NEG) Urine Blood Neg (NEG) Urine Nitrite Neg (NEG) Urine Bilirubin Neg (NEG) Urine Urobilinogen Dipstick 0.2 mg/dL (0.2 mg/dL) Urine Leukocyte Esterase Neg (NEG) Urine RBC 1-2 /HPF (0-2) Urine WBC 1-4 /HPF (0-4) Urine Squamous Epithelial Cells Occ /LPF Urine Bacteria Few /HPF (0-FEW) Urine Mucus Mod /LPF Glucose (Fingerstick) 45 mg/dL (70-99) L EKG EKG [] Radiology/Procedures Radiology/Procedures [] Impressions: CT abdomen pelvis without contrast. HISTORY: Left lower quadrant pain, history of diverticulosis CT scan of the abdomen and pelvis was done using 74 mL Omnipaque 300 contrast. Lung bases are free of infiltrates. There is mild dependent atelectasis. There is no effusion. Patient's had a cholecystectomy. Liver is normal in appearance. Spleen and adrenal glands are unremarkable. Pancreas is normal in appearance. 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 There is no mass or hydronephrosis in the kidneys. A ureteral calculus is not identified. Patient's had a hysterectomy. There is no bowel obstruction. Appendix is normal. There is no free air or ascites. There is not evidence of a diverticulitis. IMPRESSION: 1. No abdominal or pelvic mass noted. 2. Normal appendix. 3. No bowel obstruction or ascites. 4. No renal or ureteral calculus PQRS Compliance Statement: One or more of the following individualized dose reduction techniques were utilized for this examination: 1. Automated exposure control 2. Adjustment of the mA and/or kV according to patient size 3. Use of iterative reconstruction technique Electronically signed by: Hipolito Monroe MD (03/27/2019 8:27 PM) [facility] DICTATED AND SIGNED BY: HIPOLITO MONROE MD DATE: 03/27/192026 CC: JOSE MELENDEZ DO; EDIE MILLER-Bean ~ Course & Med Decision Making Course & Med Decision Making Pertinent Labs and Imaging studies reviewed. (See chart for details) The patient's labs showed a blood sugar of 60. She was given juice in the ED. Her repeat point of care blood sugar was 45. Gave her an amp of D50. Patient also got a liter of normal saline. Her left lower quadrant pain is concerning for diverticulitis so a CT of the abdomen and pelvis was ordered as well as 2 mg of morphine and 4 mg of Zofran. This study is pending. Her other labs are unremarkable. About an hour after the, the patient's blood sugar was 51. An additional amp of D50 was given. The patient's CT scan is unremarkable. Her urinalysis is negative for infection. Her third [id number] glucose is 80. Patient still has some left-sided abdominal cramping, but it is not severe. The patient feels comfortable going home at this time. She is stable for discharge. [] Dragon Disclaimer Dragon Disclaimer This electronic medical record was generated, in whole or in part, using a voice recognition dictation system. Departure Departure: Impression: Primary Impression: Hypoglycemia Additional Impression: Left lower quadrant abdominal pain of unknown etiology Disposition: 01 HOME, SELF-CARE Condition: IMPROVED Referrals: EDIE MILLER (PCP) Patient Instructions: Hypoglycemia, [id number]-uv-[id number] Problem Qualifiers JOSE MELENDEZ DO Mar 27, 2019 19:35
--- NOTE | 2019-03-27 20:30 | RAD ---
CT abdomen pelvis without contrast. HISTORY: Left lower quadrant pain, history of diverticulosis CT scan of the abdomen and pelvis was done using 74 mL Omnipaque 300 contrast. Lung bases are free of infiltrates. There is mild dependent atelectasis. There is no effusion. Patient's had a cholecystectomy. Liver is normal in appearance. Spleen and adrenal glands are unremarkable. Pancreas is normal in appearance. 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 There is no mass or hydronephrosis in the kidneys. A ureteral calculus is not identified. Patient's had a hysterectomy. There is no bowel obstruction. Appendix is normal. There is no free air or ascites. There is not evidence of a diverticulitis. IMPRESSION: 1. No abdominal or pelvic mass noted. 2. Normal appendix. 3. No bowel obstruction or ascites. 4. No renal or ureteral calculus PQRS Compliance Statement: One or more of the following individualized dose reduction techniques were utilized for this examination: 1. Automated exposure control 2. Adjustment of the mA and/or kV according to patient size 3. Use of iterative reconstruction technique Electronically signed by: Hipolito Goodson MD (03/27/2019 8:27 PM) [facility]
[2019-03-27 21:15] VITALS: BP 119/71
== END 2019-03-27 21:19 | disposition home or self-care (01) ==
LOC: ER 18:12
DX: E11.649 Type 2 diabetes mellitus with hypoglycemia without coma (principal); R10.32 Left lower quadrant pain; F41.9 Anxiety disorder, unspecified; J44.9 Chronic obstructive pulmonary disease, unspecified; F32.9 Major depressive disorder, single episode, unspecified; K21.9 Gastro-esophageal reflux disease without esophagitis; I10 Essential (primary) hypertension; F17.210 Nicotine dependence, cigarettes, uncomplicated; Z87.440 Personal history of urinary (tract) infections; Z90.49 Acquired absence of other specified parts of digestive tract; Z90.710 Acquired absence of both cervix and uterus; Z88.1 Allergy status to other antibiotic agents
CPT/HCPCS: 36415; 74177; 80053; 81001; 82947; 85025; 96361; 96374; 96375; 96376; 99285; J2270; J2405; Q9967; J7030

== ENCOUNTER 2019-04-18 18:15 | Emergency (ER) | payer BC ==
[~2019-04-18] VITALS: Ht 162.6 cm; Wt 86.2 kg
--- NOTE | 2019-04-18 18:19 | ED.ADGEN ---
Past History Past Medical History: Anxiety, COPD, Depression, Diabetes, GERD, Hypertension, UTI, Other Past Surgical History: Cholecystectomy, Hysterectomy, Tonsillectomy, Other Smoking: Cigarettes, Less than 1pk/day Alcohol Use: None Drug Use: None Adult General Chief Complaint Chief Complaint ".. I tripped going up my stairs.. but this time ... I really twisted this Rt. knee.. and hit my side.. It hurt so bad.. I puked....: HPI HPI Patient is a 38 year old female who presents with above hx and complaints trip and fall. Pt. complaints of marked pain Rt. knee. Localization to Lateral collateral ligament and meniscus area of right knee. Patient able to do straight leg lifts. Patella appears to be stable. Does have some anterior draw laxity. Patient distal neurovascular intact. Capillary refill is equal to left foot. Patient does have a contusion on her left chest wall. No spleen tenderness. Patient denies other injury. Patient normally follows with Dr. Miller. Review of Systems Review of Systems Constitutional: Denies fever or chills [] Eyes: Denies change in visual acuity, redness, or eye pain [] HENT: Denies nasal congestion or sore throat [] Respiratory: Denies cough or shortness of breath [] Cardiovascular: No additional information not addressed in HPI [] GI: Denies abdominal pain, nausea, vomiting, bloody stools or diarrhea [] : Denies dysuria or hematuria [] Musculoskeletal: Complains of right knee pain Integument: Denies rash or skin lesions [] Neurologic: Denies headache, focal weakness or sensory changes [] Endocrine: Denies polyuria or polydipsia [] All other systems were reviewed and found to be within normal limits, except as documented in this note. Family History Family History Noncontributory Current Medications Current Medications Current Medications Medications (Trade) Dose Ordered Sig/Yoko Start Time Stop Time Status Last Admin Dose Admin Morphine Sulfate (Morphine 10mg Syringe) 10 mg 1X ONCE 04/18/19 19:00 04/18/19 19:01 DC 04/18/19 18:59 10 MG Ondansetron HCl (Zofran Odt) 8 mg 1X ONCE 04/18/19 19:00 04/18/19 19:01 DC 04/18/19 18:58 8 MG Allergies Allergies Allergies Coded Allergies Type Severity Reaction Last Updated Verified levofloxacin Allergy Intermediate 10/06/18 Yes vancomycin Allergy Intermediate 03/18/19 Yes Physical Exam Physical Exam Constitutional: , moderate acute distress, non-toxic appearance. [] HENT: Normocephalic, atraumatic, bilateral external ears normal, oropharynx moist, no oral exudates, nose normal. [] Eyes: PERRLA, EOMI, conjunctiva normal, no discharge. [] Neck: Normal range of motion, no tenderness, supple, no stridor. [] Cardiovascular:Heart rate regular rhythm, no murmur [] Lungs & Thorax: Bilateral breath sounds clear to auscultation , tenderness on left anterior axillary line chest wall Abdomen: Bowel sounds normal, soft, no tenderness, no masses, no pulsatile masses. []Obese. Old surgery scars. Skin: Warm, dry, no erythema, no rash. [] Back: No tenderness, no CVA tenderness. [] Extremities: Rt. knee tenderness, no cyanosis, no clubbing, ROM intact, no edema. []Except Exam as per right knee Neurologic: Alert and oriented X 3, normal motor function, normal sensory function, no focal deficits noted. [] Psychologic: Affect normal, judgement normal, mood normal. [] Current Patient Data Vital Signs Vital Signs Date Time Temp Pulse Resp B/P (MAP) Pulse Ox O2 Delivery O2 Flow Rate FiO2 04/18/19 19:13 101 109/68 (82) 97 04/18/19 18:29 97.4 18 Room Air Lab Results Laboratory Tests Test 04/18/19 18:29 Urine Collection Type Unknown Urine Color [place] Urine Clarity Hazy Urine pH 5.5 Urine Specific [place] >=1.030 Urine Protein Trace (NEG-TRACE) Urine Glucose (UA) Neg mg/dL (NEG) Urine Ketones (Stick) Neg mg/dL (NEG) Urine Blood Neg (NEG) Urine Nitrite Neg (NEG) Urine Bilirubin Neg (NEG) Urine Urobilinogen Dipstick 0.2 mg/dL (0.2 mg/dL) Urine Leukocyte Esterase Neg (NEG) Urine RBC 0 /HPF (0-2) Urine WBC 0 /HPF (0-4) Urine Squamous Epithelial Cells Occ /LPF Urine Bacteria 0 /HPF (0-FEW) Urine Opiates Screen Neg (NEG) Urine Methadone Screen Neg (NEG) Urine Barbiturates Neg (NEG) Urine Phencyclidine Screen Neg (NEG) Urine Amphetamine/Methamphetamine Neg (NEG) Urine Benzodiazepines Screen Pos (NEG) Urine Cocaine Screen Neg (NEG) Urine Cannabinoids Screen Neg (NEG) Urine Ethyl Alcohol Neg (NEG) EKG EKG [] Radiology/Procedures Radiology/Procedures [][address] [id number] IMAGING REPORT Signed PATIENT: SANFORD RANDHAWA ACCOUNT: [id number] : 1980 LOCATION: ER AGE: 38 SEX: F EXAM STATUS: REG ER ORD. PHYSICIAN: RICKIE LAMB MD REASON: fall april 12, continued pain PROCEDURE: CHEST PA & LATERAL PA and lateral chest. HISTORY: Fall on april, continued pain PA and lateral views were taken of the chest. There is no pneumothorax or pleural effusion. Heart is normal in size. Mediastinum is not widened. IMPRESSION: 1. No acute chest disease. Electronically signed by: Hipolito Goodson MD (04/18/2019 7:02 PM) [facility] DICTATED AND SIGNED BY: HIPOLITO GOODSON MD DATE: 04/18/191901 CC: RICKIE LAMB MD; EDIE MILLER SUPERVISOR PROP MAKING-C ~ [address] [place] [id number] IMAGING REPORT Signed PATIENT: SANFORD RANDHAWA ACCOUNT: [id number] : 1980 LOCATION: ER AGE: 38 SEX: F EXAM STATUS: REG ER ORD. PHYSICIAN: RICKIE LAMB MD REASON: fall april 12, continued pain PROCEDURE: KNEE RIGHT 4V Right knee 4 views. HISTORY: Fall, continued pain 4 views were taken of the right knee. There is no fracture or joint effusion or osseous abnormality. IMPRESSION: 1. Negative right knee. Electronically signed by: Hipolito Goodson MD (04/18/2019 7:00 PM) [facility] DICTATED AND SIGNED BY: HIPOLITO GOODSON MD DATE: 04/18/191899 CC: RICKIE LAMB MD; EDIE MILLER ~ Course & Med Decision Making Course & Med Decision Making Pertinent Labs and Imaging studies reviewed. (See chart for details) Ice packs as needed. Rest. Elevation. Tylenol and ibuprofen for discomfort. Follow-up primary care. Return if any concerns. Marvin wrap. Distal neurovascular intact after marvin wrap. [] Final Impression Final Impression 1. Trip and Fall 2. Rt Knee[]sprain strain 3. Contusion Lt chest wall Dragon Disclaimer Dragon Disclaimer This electronic medical record was generated, in whole or in part, using a voice recognition dictation system. Discharge Summary Visit Information Final Diagnosis Problems Medical Problems: (1) Sprain and strain of unspecified site of knee and leg Status: Acute Brief Hospital Course Allergies Allergies Coded Allergies Type Severity Reaction Last Updated Verified levofloxacin Allergy Intermediate 10/06/18 Yes vancomycin Allergy Intermediate 03/18/19 Yes Vital Signs Vital Signs Date Time Temp Pulse Resp B/P (MAP) Pulse Ox O2 Delivery O2 Flow Rate FiO2 04/18/19 19:13 101 109/68 (82) 97 04/18/19 18:29 97.4 18 Room Air Lab Results Laboratory Tests Test 04/18/19 18:29 Urine Collection Type Unknown Urine Color Beena Urine Clarity Hazy Urine pH 5.5 Urine Specific [place] >=1.030 Urine Protein Trace (NEG-TRACE) Urine Glucose (UA) Neg mg/dL (NEG) Urine Ketones (Stick) Neg mg/dL (NEG) Urine Blood Neg (NEG) Urine Nitrite Neg (NEG) Urine Bilirubin Neg (NEG) Urine Urobilinogen Dipstick 0.2 mg/dL (0.2 mg/dL) Urine Leukocyte Esterase Neg (NEG) Urine RBC 0 /HPF (0-2) Urine WBC 0 /HPF (0-4) Urine Squamous Epithelial Cells Occ /LPF Urine Bacteria 0 /HPF (0-FEW) Urine Opiates Screen Neg (NEG) Urine Methadone Screen Neg (NEG) Urine Barbiturates Neg (NEG) Urine Phencyclidine Screen Neg (NEG) Urine Amphetamine/Methamphetamine Neg (NEG) Urine Benzodiazepines Screen Pos (NEG) Urine Cocaine Screen Neg (NEG) Urine Cannabinoids Screen Neg (NEG) Urine Ethyl Alcohol Neg (NEG) Brief Hospital Course Ms. Randhawa is a 38 old female who presented with fell going up stairs. Sprain/Strain Rt. knee and Lt. chest wall contusion. Discharge Information Condition at Discharge: Improved, Stable Disposition/Orders: D/C to Home Dischare Medications Current Medications Morphine Sulfate (Morphine 10mg Syringe) 10 mg 1X ONCE SQ Last administered on 04/18/19at 18:59; Admin Dose 10 MG; Start 04/18/19 at 19:00; Stop 04/18/19 at 19:01; Status DC Ondansetron HCl (Zofran Odt) 8 mg 1X ONCE PO Last administered on 04/18/19at 18:58; Admin Dose 8 MG; Start 04/18/19 at 19:00; Stop 04/18/19 at 19:01; Status DC Active Scripts Active Zofran (Ondansetron Hcl) 8 Mg Tablet 8 Mg PO QIDP Hydrocodone-Ibuprofen 7.5-200 (Hydrocodone/Ibuprofen) 1 Each Tablet 1 Tab PO PRN Q6HRS PRN Reported Xanax (Alprazolam) 1 Mg Tablet 1 Mg PO PRN Q8HRS PRN Trazodone Hcl 100 Mg Tablet 100 Mg PO QHS Pristiq Er (Desvenlafaxine Succinate) 50 Mg Tab.er.24h 50 Mg PO DAILY Dragon Disclaimer This chart was dictated in whole or in part using Voice Recognition software in a busy, high-work load, and often noisy Emergency Department environment. It may contain unintended and wholly unrecognized errors or omissions. RICKIE LAMB MD Apr 18, 2019 18:19
[2019-04-18] MEDS ORDERED: ONDA8TAB9 PO (18:46)
[2019-04-18] MEDS ORDERED: HYDR-1179 PO (18:46)
[2019-04-18] MEDS ORDERED: ONDANSETRON ODT 4 MG TAB.RAPDIS PO ONE (19:00)
[2019-04-18] MEDS ORDERED: MORPHINE SULFATE 10 MG/ML SYRINGE. SQ ONE (19:00)
--- NOTE | 2019-04-18 19:03 | RAD ---
Right knee 4 views. HISTORY: Fall, continued pain 4 views were taken of the right knee. There is no fracture or joint effusion or osseous abnormality. IMPRESSION: 1. Negative right knee. Electronically signed by: Hipolito Goodson MD (04/18/2019 7:00 PM) [facility]
--- NOTE | 2019-04-18 19:05 | RAD ---
PA and lateral chest. HISTORY: Fall on april, continued pain PA and lateral views were taken of the chest. There is no pneumothorax or pleural effusion. Heart is normal in size. Mediastinum is not widened. IMPRESSION: 1. No acute chest disease. Electronically signed by: Hipolito Goodson MD (04/18/2019 7:02 PM) [facility]
[2019-04-18 19:11] LABS: BARBITURATES NEG (NEG); BENZODIAZEPINES POS (NEG); CANNABINOIDS NEG (NEG); COCAINE NEG (NEG); METHADONE NEG (NEG); OPIATES NEG (NEG); PHENCYCLIDINE NEG (NEG)
[2019-04-18 19:12] LABS: AMPHETAMINE/METHAMPHETAMINE NEG (NEG)
[2019-04-18 19:13] VITALS: BP 109/68
[2019-04-18 19:14] LABS: BACTERIA,URINE 0 /HPF (0-FEW); BILIRUBIN,URINE NEG (NEG); CLARITY,URINE HAZY; COLOR,URINE AMBER; GLUCOSE,URINE NEG (NEG); NITRITE,URINE NEG (NEG); RBC,URINE 0 /HPF (0-2); SQUAMOUS EPITHELIAL CELL,UR OCC /LPF; UROBILINOGEN,URINE 0.2 mg/dL (0.2 mg/dL); WBC,URINE 0 /HPF (0-4)
== END 2019-04-18 19:15 | disposition home or self-care (01) ==
LOC: ER 18:15
DX: S83.8X1A Sprain of other specified parts of right knee, initial encounter (principal); S76.811A Strain of other specified muscles, fascia and tendons at thigh level, right thigh, initial encounter; S20.212A Contusion of left front wall of thorax, initial encounter; J44.9 Chronic obstructive pulmonary disease, unspecified; E11.9 Type 2 diabetes mellitus without complications; K21.9 Gastro-esophageal reflux disease without esophagitis; I10 Essential (primary) hypertension; F17.210 Nicotine dependence, cigarettes, uncomplicated; Z87.440 Personal history of urinary (tract) infections; Z88.1 Allergy status to other antibiotic agents; W01.0XXA Fall on same level from slipping, tripping and stumbling without subsequent striking against object, initial encounter; Y93.89 Activity, other specified; Y92.89 Other specified places as the place of occurrence of the external cause; Y99.8 Other external cause status
CPT/HCPCS: 29505; 36415; 71046; 73564; 80307; 81001; 96372; 99285; J2270; Q0162; 29515

== ENCOUNTER → 2019-04-26 | Outpatient (CLI) | payer BC ==
[2019-04-18 19:13] VITALS: BP 109/68
[~2019-04-26] MED LIST changes: +HYDR-1179 PO; +ONDA8TAB9 PO
[2019-04-26 10:29] LABS: CALCIUM 10.2 mg/dL (8.5-10.1); CREATININE 0.7 mg/dL (0.6-1.0); GFR 93.6; POTASSIUM 4.1 mmol/L (3.5-5.1)
[2019-04-26 10:40] LABS: BACTERIA,URINE FEW /HPF (0-FEW); BILIRUBIN,URINE NEG (NEG); CLARITY,URINE CLOUDY; COLOR,URINE YELLOW; GLUCOSE,URINE >=1000 mg/dL (NEG); NITRITE,URINE NEG (NEG); UROBILINOGEN,URINE 0.2 mg/dL (0.2 mg/dL)
[2019-04-26 10:41] LABS: SQUAMOUS EPITHELIAL CELL,UR FEW /LPF
[2019-04-26 13:57] LABS: THYROID STIM HORMONE (TSH) 0.233 uIU/mL (0.358-3.740)
== END | disposition home or self-care (01) ==
LOC: LAB 08:00
PROVIDERS: ATTEND Nurse Practitioner Adult Health
DX: E11.9 Type 2 diabetes mellitus without complications (principal); E16.1 Other hypoglycemia
CPT/HCPCS: 36415; 80048; 80061; 81001; 82024; 82043; 82533; 84439; 84443; 87086

== ENCOUNTER → 2019-05-21 | Outpatient (CLI) | payer BC ==
[2019-05-21 10:52] LABS: CALCIUM 9.6 mg/dL (8.5-10.1); CREATININE 0.8 mg/dL (0.6-1.0); GFR 80.3; POTASSIUM 3.8 mmol/L (3.5-5.1)
[2019-05-21 14:07] LABS: FREE T4 1.17 ng/dL (0.76-1.46); THYROID STIM HORMONE (TSH) 1.198 uIU/mL (0.358-3.740)
== END | disposition home or self-care (01) ==
LOC: LAB 10:13
PROVIDERS: ATTEND Internal Medicine Endocrinology, Diabetes & Metabolism
DX: E11.43 Type 2 diabetes mellitus with diabetic autonomic (poly)neuropathy (principal)
CPT/HCPCS: 36415; 80048; 84439; 84443

== ENCOUNTER 2019-05-27 01:32 | Emergency (ER) | payer BC ==
[~2019-05-27] VITALS: Ht 162.6 cm; Wt 89.9 kg
--- NOTE | 2019-05-27 02:06 | PHYS DOC ---
Past History Past Medical History: Anxiety, COPD, Depression, Diabetes, GERD, Hypertension, UTI, Other Past Surgical History: Cholecystectomy, Hysterectomy, Tonsillectomy, Other Smoking: Cigarettes, Less than 1pk/day Alcohol Use: None Drug Use: None Adult General Chief Complaint Chief Complaint: hyperglycemia HPI HPI 39-year-old female with diabetes presents with hyperglycemia. She tells me for the last few days she has had blood sugars in the upper 400s over 600. She is on a fixed dose of Lantus and a fixed dose of Humalog at mealtime. She does not count her carbs to do a sliding scale. The patient has adjusted her insulin lately at her doctor's direction because she was having some hypoglycemia. She presents tonight because she has upper abdominal pain, vomiting and just generally feels terrible. Patient denies fever or chills. Review of Systems Review of Systems Constitutional: Denies fever or chills [] Eyes: Denies change in visual acuity, redness, or eye pain [] HENT: Denies nasal congestion or sore throat [] Respiratory: Denies cough or shortness of breath [] Cardiovascular: No additional information not addressed in HPI [] GI: Epigastric abdominal pain, nausea, vomiting. Denies bloody stools or diarrhea [] : Denies dysuria or hematuria [] Musculoskeletal: Denies back pain or joint pain [] Integument: Denies rash or skin lesions [] Neurologic: Denies headache, focal weakness or sensory changes [] Endocrine: Denies polyuria or polydipsia [] All other systems were reviewed and found to be within normal limits, except as documented in this note. Current Medications Current Medications Current Medications Medications (Trade) Dose Ordered Sig/Yoko Start Time Stop Time Status Last Admin Dose Admin Ondansetron HCl (Zofran) 4 mg 1X ONCE 05/27/19 02:00 05/27/19 02:01 UNV Sodium Chloride 1,000 ml @ 1,000 mls/hr 1X ONCE 05/27/19 02:00 05/27/19 02:59 UNV Allergies Allergies Allergies Coded Allergies Type Severity Reaction Last Updated Verified levofloxacin Allergy Intermediate 10/06/18 Yes vancomycin Allergy Intermediate 03/18/19 Yes Physical Exam Physical Exam Constitutional: Well developed, well nourished, no acute distress, non-toxic appearance. [] HENT: Normocephalic, atraumatic, bilateral external ears normal, oropharynx moist, no oral exudates, nose normal. [] Eyes: PERRLA, EOMI, conjunctiva normal, no discharge. [] Neck: Normal range of motion, no tenderness, supple, no stridor. [] Cardiovascular:Heart rate regular rhythm, no murmur [] Lungs & Thorax: Bilateral breath sounds clear to auscultation [] Abdomen: Bowel sounds normal, soft, no tenderness, no masses, no pulsatile masses. [] Skin: Warm, dry, no erythema, no rash. [] Back: No tenderness, no CVA tenderness. [] Extremities: No tenderness, no cyanosis, no clubbing, ROM intact, no edema. [] Neurologic: Alert and oriented X 3, normal motor function, normal sensory function, no focal deficits noted. [] Psychologic: Affect normal, judgement normal, mood normal. [] EKG EKG [] Radiology/Procedures Radiology/Procedures [] Course & Med Decision Making Course & Med Decision Making Pertinent Labs and Imaging studies reviewed. (See chart for details) The patient's point of care glucose on arrival was over 500. I have ordered 2 L of normal saline and 10 units of regular insulin IV. After the first 300ml of the first liter of fluid and the initial 10 units, the patient's repeat blood sugar is 254. We will continue the 1L of fluids, but I will not order any additional insulin. The patient was given 2 mg morphine for her epigastric pain. Her other labs are unremarkable. The patient received an additional 2 mg morphine for her pain. She also required another 5 units of Regular Insulin for her elevated blood sugar. Her final blood sugar was around 200. The patient is stable for discharge at this time. [] Dragon Disclaimer Dragon Disclaimer This electronic medical record was generated, in whole or in part, using a voice recognition dictation system. 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
[2019-05-27 02:26] LABS: BASO # 0.1 x10^3/uL (0.0-0.2); BASO % 1 % (0-3); EOS # 0.1 x10^3/uL (0.0-0.7); EOS % 1 % (0-3); HEMATOCRIT 38.3 % (36.0-47.0); HEMOGLOBIN 12.9 g/dL (12.0-15.5); LYMPH # 2.5 x10^3/uL (1.0-4.8); LYMPH % 29 % (24-48); MEAN CORPUSCULAR HEMOGLOBIN 30 pg (25-35); MEAN CORPUSCULAR HGB CONC 34 g/dL (31-37); MEAN CORPUSCULAR VOLUME 89 fL (79-100); MONO # 0.5 x10^3/uL (0.0-1.1); MONO % 6 % (0-9); NEUT # 5.4 x10^3uL (1.8-7.7); NEUT % 63 % (31-73); PLATELET COUNT 182 x10^3/uL (140-400); WHITE BLOOD COUNT 8.5 x10^3/uL (4.0-11.0)
[2019-05-27] MEDS ORDERED: ONDANSETRON PF 4 MG/2 ML VIAL. IV ONE (02:30)
[2019-05-27] MEDS ORDERED: IV NORMAL SALINE 1,000ML 1,000 ML IV ONE ×2 (02:30)
[2019-05-27] MEDS ORDERED: INSULIN REGULAR 100 UNIT/ML 3ML VIAL. IV ONE ×2 (02:30→05:00)
[2019-05-27 02:35] LABS: BILIRUBIN,URINE NEG (NEG); CLARITY,URINE CLEAR; COLOR,URINE STRAW; GLUCOSE,URINE >=1000 mg/dL (NEG); NITRITE,URINE NEG (NEG); UROBILINOGEN,URINE 0.2 mg/dL (0.2 mg/dL)
[2019-05-27 02:36] LABS: BACTERIA,URINE FEW /HPF (0-FEW); RBC,URINE OCC /HPF (0-2); SQUAMOUS EPITHELIAL CELL,UR FEW /LPF
[2019-05-27 02:39] LABS: ALBUMIN 3.7 g/dL (3.4-5.0); ALBUMIN/GLOBULIN RATIO 1.2 (1.0-1.7); CALCIUM 9.2 mg/dL (8.5-10.1); CREATININE 0.9 mg/dL (0.6-1.0); GFR 69.7; POTASSIUM 3.7 mmol/L (3.5-5.1); TOTAL BILIRUBIN 0.2 mg/dL (0.2-1.0); TOTAL PROTEIN 6.9 g/dL (6.4-8.2)
[2019-05-27] MEDS ORDERED: MORPHINE SULFATE 2 MG/ML DISP.SYRIN. IV ONE ×2 (03:15→05:00)
[2019-05-27 05:30] VITALS: BP 116/65
== END 2019-05-27 05:38 | disposition home or self-care (01) ==
LOC: ER 01:32
DX: R11.2 Nausea with vomiting, unspecified (principal); E11.65 Type 2 diabetes mellitus with hyperglycemia; Z79.4 Long term (current) use of insulin; J44.9 Chronic obstructive pulmonary disease, unspecified; K21.9 Gastro-esophageal reflux disease without esophagitis; I10 Essential (primary) hypertension; F17.210 Nicotine dependence, cigarettes, uncomplicated; Z87.440 Personal history of urinary (tract) infections; Z90.710 Acquired absence of both cervix and uterus; Z90.49 Acquired absence of other specified parts of digestive tract; Z88.1 Allergy status to other antibiotic agents
CPT/HCPCS: 36415; 80053; 81001; 82947; 83690; 85025; 96361; 96374; 96375; 96376; 99285; J1815; J2270; J2405; J7030

== ENCOUNTER 2019-06-05 16:35 | Emergency (ER) | payer BC ==
[~2019-06-05] VITALS: Ht 162.6 cm; Wt 86.2 kg
[2019-06-05] MEDS ORDERED: IV NORMAL SALINE 1,000ML 1,000 ML IV SCH (16:46)
[2019-06-05] MEDS ORDERED: INSULIN REGULAR 100 UNIT/ML 3ML VIAL. IV ONE ×2 (17:00→18:30)
[2019-06-05 17:26] LABS: BASO # 0.1 x10^3/uL (0.0-0.2); BASO % 1 % (0-3); EOS # 0.1 x10^3/uL (0.0-0.7); EOS % 2 % (0-3); HEMATOCRIT 41.7 % (36.0-47.0); LYMPH # 2.1 x10^3/uL (1.0-4.8); LYMPH % 23 % (24-48); MEAN CORPUSCULAR HEMOGLOBIN 30 pg (25-35); MEAN CORPUSCULAR HGB CONC 34 g/dL (31-37); MEAN CORPUSCULAR VOLUME 88 fL (79-100); MONO # 0.7 x10^3/uL (0.0-1.1); MONO % 7 % (0-9); NEUT # 6.3 x10^3uL (1.8-7.7); NEUT % 67 % (31-73); PLATELET COUNT 223 x10^3/uL (140-400); RED BLOOD COUNT 4.72 x10^6/uL (3.50-5.40); RED CELL DISTRIBUTION WIDTH 16.1 % (11.5-14.5); WHITE BLOOD COUNT 9.3 x10^3/uL (4.0-11.0)
--- NOTE | 2019-06-05 17:27 | PHYS DOC ---
Past History Past Medical History: Anxiety, Depression, Diabetes, Gallstones, GERD, Pancreatitis, Other (JOSE L JARVIS Jr., DO) Past Surgical History: Cholecystectomy, Hysterectomy, Tonsillectomy (JOSE L JARVIS Jr., DO) Smoking: Cigarettes, Less than 1pk/day Alcohol Use: None Drug Use: None (JOSE L JARVIS Jr., DO) Adult General Chief Complaint Chief Complaint: BLOOD SUGAR PROBLEM [facility] HPI Patient is a 39-year-old female who presents with complaint of elevated blood sugars over the last couple of days. She states that blood sugar was elevated earlier and she took a total of 45 units of insulin between 12:30 and another dose at 3:30. She denies any chest pain or shortness of breath. She does indicate that she feels a little lightheaded. She states that she saw her cigar sorter last week and some minor changes were made to medications but she is still noting significantly elevated blood sugars despite sliding scale of insulin.[] (JOSE L JARVIS Jr., DO) Review of Systems Review of Systems Constitutional: Denies fever or chills [] Respiratory: Denies cough or shortness of breath [] Cardiovascular: No additional information not addressed in HPI [] GI: Denies abdominal pain, nausea, vomiting, bloody stools or diarrhea [] Integument: Denies rash or skin lesions [] Neurologic: Denies headache, focal weakness or sensory changes [] Endocrine: Complains of polyuria and polydipsia [] All other systems were reviewed and found to be within normal limits, except as documented in this note. (JOSE L JARVIS Jr., DO) Current Medications Current Medications Current Medications Medications (Trade) Dose Ordered Sig/Yoko Start Time Stop Time Status Last Admin Dose Admin Insulin Human Regular (HumuLIN R VIAL) 12 unit 1X ONCE 06/05/19 17:00 06/05/19 17:01 DC 06/05/19 17:23 12 UNIT Sodium Chloride 1,000 ml @ 1,000 mls/hr Q1H 06/05/19 16:46 06/05/19 17:45 06/05/19 17:12 1,000 MLS/HR (JOSE L JARVIS Jr., DO) Allergies Allergies Allergies Coded Allergies Type Severity Reaction Last Updated Verified levofloxacin Allergy Intermediate 10/06/18 Yes vancomycin Allergy Intermediate 03/18/19 Yes (JOSE L JARVIS Jr., DO) Physical Exam Physical Exam Constitutional: Well developed, well nourished, no acute distress, non-toxic appearance. [] HENT: Normocephalic, atraumatic, bilateral external ears normal, oropharynx moist, no oral exudates, nose normal. [] Eyes: PERRLA, EOMI, conjunctiva normal, no discharge. [] Neck: Normal range of motion, no tenderness, supple, no stridor. [] Cardiovascular: Regular rate and rhythm[] Lungs & Thorax: Bilateral breath sounds clear to auscultation [] Abdomen: Bowel sounds normal, soft, no tenderness. [] Skin: Warm, dry, no erythema, no rash. [] Extremities: No tenderness, no cyanosis, no clubbing, ROM intact. [] Neurologic: Alert and oriented X 3, no focal deficits noted. [] (JOSE L JARVIS Jr., DO) Current Patient Data Vital Signs Vital Signs Date Time Temp Pulse Resp B/P (MAP) Pulse Ox O2 Delivery O2 Flow Rate FiO2 06/05/19 16:40 98.2 90 18 97 Room Air Lab Results Laboratory Tests Test 06/05/19 16:43 Glucose (Fingerstick) 464 mg/dL (70-99) H (JOSE L JARVIS Jr., DO) EKG EKG [] (JOSE L JARVIS Jr., DO) Radiology/Procedures Radiology/Procedures [] (JOSE L JARVIS Jr., DO) Course & Med Decision Making Course & Med Decision Making Pertinent Labs and Imaging studies reviewed. (See chart for details) [] (JOSE L JARVIS Jr., DO) Course & Med Decision Making I received signout from Dr. Jarvis at 1800. This is a patient with hyperglycemia blood sugar was over 400 he has asked me to recheck it for a down trending goal. I rechecked the patient she does have some nausea this happens when her blood sugar goes up she has some mild upper abdominal discomfort related to this. Labs were unremarkable except for the hyperglycemia Matheus had ordered another dose of insulin and on recheck the blood sugar was slowly downtrending. Patient has planned follow-up with cigar sorter for insulin pump early next week. (IKER HUERTAS MD) Dragon Disclaimer Dragon Disclaimer This electronic medical record was generated, in whole or in part, using a voice recognition dictation system. (JARVIS,JOSE L D Jr. DO) Departure Departure: Impression: Primary Impression: Hyperglycemia Disposition: 01 HOME, SELF-CARE Condition: STABLE Referrals: EDIE MILLER (PCP) JOSE L JARVIS Jr., DO Jun 05, 2019 17:27 IKER HUERTAS MD Jun 05, 2019 20:14
[2019-06-05 17:43] LABS: ALBUMIN 3.6 g/dL (3.4-5.0); ALBUMIN/GLOBULIN RATIO 0.9 (1.0-1.7); CALCIUM 9.4 mg/dL (8.5-10.1); GFR 61.7; MAGNESIUM 1.8 mg/dL (1.8-2.4); TOTAL BILIRUBIN 0.3 mg/dL (0.2-1.0); TOTAL PROTEIN 7.4 g/dL (6.4-8.2)
[2019-06-05 17:48] LABS: BACTERIA,URINE 0 /HPF (0-FEW); BILIRUBIN,URINE NEG (NEG); CLARITY,URINE CLEAR; COLOR,URINE STRAW; GLUCOSE,URINE >=1000 mg/dL (NEG); NITRITE,URINE NEG (NEG); RBC,URINE 0 /HPF (0-2); SQUAMOUS EPITHELIAL CELL,UR OCC /LPF; UROBILINOGEN,URINE 0.2 mg/dL (0.2 mg/dL); WBC,URINE OCC /HPF (0-4)
[2019-06-05] MEDS ORDERED: ONDANSETRON PF 4 MG/2 ML VIAL. IV ONE (18:00)
[2019-06-05] MEDS ORDERED: KETOROLAC 30 MG/ML VIAL. IV ONE (18:00)
[2019-06-05] MEDS ORDERED: IV NORMAL SALINE 1,000ML 1,000 ML IV ONE (18:15)
[2019-06-05] MEDS ORDERED: LIDO:MAALOX 1:1 20 ML SINGLE DOSE. PO ONE (19:30)
[2019-06-05] MEDS ORDERED: ACETAMINOPHEN 325 MG TABLET PO ONE (19:30)
[2019-06-05 20:17] VITALS: BP 130/90
== END 2019-06-05 20:15 | disposition home or self-care (01) ==
LOC: ER 16:35
DX: E11.65 Type 2 diabetes mellitus with hyperglycemia (principal); R42 Dizziness and giddiness; K21.9 Gastro-esophageal reflux disease without esophagitis; F17.210 Nicotine dependence, cigarettes, uncomplicated; R10.10 Upper abdominal pain, unspecified; Z88.1 Allergy status to other antibiotic agents
CPT/HCPCS: 36415; 80053; 81001; 82010; 82947; 83735; 85025; 96361; 96374; 96375; 96376; 99284; J1815; J1885; J2405; J7030

== ENCOUNTER 2019-06-16 22:35 | Observation (INO) | payer BC ==
[~2019-06-16] VITALS: Ht 162.6 cm; Wt 86.4 kg
[~2019-06-16 22:35] MED LIST changes: -CLON0.5T11 PO; +CLON0.5T4 PO; -DEXT20CA PO; +DEXT20CA17 PO; +METF500T11 PO; -METF500T9 PO
--- NOTE | 2019-06-16 22:38 | ED.ADGEN ---
Past History Past Medical History: Anxiety, Asthma, Bronchitis, Constipation, Depression, Diabetes, Gallstones, GERD, High Cholesterol, Hypertension, Kidney Stones, Pancreatitis, UTI, Other Past Surgical History: Cholecystectomy, Hysterectomy, Tonsillectomy Smoking: Cigarettes, Less than 1pk/day Alcohol Use: None Drug Use: None Adult General Chief Complaint Chief Complaint ".. I am hurting in my abdomen tonight.. dia here in epigastric.. and on this Rt side.. it run down into my lower abdomen on this Rt side... ".." I dia like when I had kidney stone before.. I ve had them twice..." HPI HPI Patient is a 39 year old female who presents with above hx and complaints abdomen pain, hyperglycemia and nausea. Pt. a known diabetic and recent placement of insulin pump. Pt. pain is described as if it was renal colic. Patient's had 2 previous kidney stones. Patient denies any intake bad food. Patient denies any travel. Patient denies any specific ill contacts. Patient denies any immunosuppression other than her underlying diabetes. Patient does continue to smoke. Patient normally follows with Dr. Miller. Pt. has had previous abdomen surgery for umbilical hernia, gallstones and total hyste rectomy. Review of Systems Review of Systems Constitutional: Denies fever or chills [] Eyes: Denies change in visual acuity, redness, or eye pain [] HENT: Denies nasal congestion or sore throat [] Respiratory: Denies cough or shortness of breath [] Cardiovascular: No additional information not addressed in HPI [] GI: Complaints of abdominal pain, nausea, and constipation. Denies vomiting, bloody stools or diarrhea [] : Denies dysuria . complaints of hematuria [] Musculoskeletal: Rt. flank pain Integument: Denies rash or skin lesions [] Neurologic: Denies headache, focal weakness or sensory changes [] Endocrine: Hx of polyuria All other systems were reviewed and found to be within normal limits, except as documented in this note. Family History Family History DM, HTN ., Lipids Current Medications Current Medications Current Medications Medications (Trade) Dose Ordered Sig/Yoko Start Time Stop Time Status Last Admin Dose Admin Acetaminophen (Tylenol) 650 mg PRN Q4HRS PRN 06/17/19 01:00 06/18/19 00:59 Ceftriaxone Sodium 1 gm/ Sodium Chloride 50 ml @ 100 mls/hr Q24H 06/17/19 01:30 Famotidine (Pepcid Vial) 20 mg 1X ONCE 06/16/19 22:45 06/17/19 00:52 DC 06/16/19 23:20 20 MG Insulin Human Regular (HumuLIN R VIAL) 10 unit 1X ONCE 06/17/19 00:15 06/17/19 00:52 DC 06/17/19 00:20 10 UNIT Insulin Human Regular 150 unit/ Sodium Chloride 151.5 ml @ 0 mls/hr 1X ONCE 06/17/19 00:00 06/17/19 00:52 DC Ketorolac Tromethamine (Toradol 30mg Vial) 30 mg 1X ONCE 06/17/19 00:00 06/17/19 00:53 DC 06/17/19 00:01 30 MG Lactated Ringer's 1,000 ml @ 200 mls/hr Q5H 06/17/19 01:00 Magnesium Hydroxide (Milk Of Magnesia) 2,400 mg 1X ONCE 06/17/19 01:00 06/17/19 01:01 DC Morphine Sulfate (Morphine 10mg Syringe) 10 mg 1X ONCE 06/17/19 00:00 06/17/19 00:53 DC 06/17/19 00:23 10 MG Morphine Sulfate (Morphine 2mg Syringe) 2 mg PRN QID PRN 06/17/19 01:00 06/18/19 00:59 Ondansetron HCl (Zofran) 4 mg PRN Q4HRS PRN 06/17/19 01:00 06/18/19 00:59 Sodium Chloride 1,000 ml @ 100 mls/hr Q10H 06/16/19 22:43 06/17/19 08:42 06/16/19 23:20 100 MLS/HR Allergies Allergies Allergies Coded Allergies Type Severity Reaction Last Updated Verified levofloxacin Allergy Intermediate 10/06/18 Yes vancomycin Allergy Intermediate 03/18/19 Yes Physical Exam Physical Exam Constitutional: Moderate acute distress, non-toxic appearance. [] HENT: Normocephalic, atraumatic, bilateral external ears normal, oropharynx moist, no oral exudates, nose normal. [] Eyes: PERRLA, EOMI, conjunctiva normal, no discharge. [] Neck: Normal range of motion, no tenderness, supple, no stridor. [] Cardiovascular:Tachycardia Heart rate regular rhythm, no murmur [] Lungs & Thorax: Bilateral breath sounds equal at apexes with scattered wheezes on auscultation [] Abdomen: Bowel sounds decreased, soft, Rebound to Rt upper and Rt. flank tenderness, no masses, no pulsatile masses. [] Old surgery scars. Distended. Insulin pump on Rt. lower abdomen. Apple shaped abdomen. ( Central Obesity) Skin: Warm, dry, no erythema, no rash. [] Back: No tenderness, no CVA tenderness. [] Extremities: No tenderness, no cyanosis, no clubbing, ROM intact, no edema. [] Neurologic: Alert and oriented X 3, normal motor function, normal sensory function, no focal deficits noted. [] Psychologic: Affect anxious, judgement normal, mood normal. [] Current Patient Data Vital Signs Vital Signs Date Time Temp Pulse Resp B/P (MAP) Pulse Ox O2 Delivery O2 Flow Rate FiO2 06/17/19 01:05 81 20 96/48 (64) 93 Room Air 06/16/19 22:53 97.7 Lab Results Laboratory Tests Test 06/16/19 22:40 06/16/19 22:50 06/16/19 23:12 06/17/19 01:06 Urine Collection Type Unknown Urine Color Yellow Urine Clarity Cloudy Urine pH 6.0 Urine Specific [place] 1.020 Urine Protein Neg (NEG-TRACE) Urine Glucose (UA) >=1000 mg/dL (NEG) Urine Ketones (Stick) Neg mg/dL (NEG) Urine Blood Large (NEG) Urine Nitrite Neg (NEG) Urine Bilirubin Neg (NEG) Urine Urobilinogen Dipstick 0.2 mg/dL (0.2 mg/dL) Urine Leukocyte Esterase Neg (NEG) Urine RBC 20-40 /HPF (0-2) Urine WBC 0 /HPF (0-4) Urine Squamous Epithelial Cells Occ /LPF Urine Bacteria Few /HPF (0-FEW) Urine Opiates Screen Neg (NEG) Urine Methadone Screen Neg (NEG) Urine Barbiturates Neg (NEG) Urine Phencyclidine Screen Neg (NEG) Urine Amphetamine/Methamphetamine Neg (NEG) Urine Benzodiazepines Screen Pos (NEG) Urine Cocaine Screen Neg (NEG) Urine Cannabinoids Screen Neg (NEG) Urine Ethyl Alcohol Neg (NEG) Glucose (Fingerstick) 334 mg/dL (70-99) H 252 mg/dL (70-99) H White Blood Count 9.1 x10^3/uL (4.0-11.0) Red Blood Count 4.42 x10^6/uL (3.50-5.40) Hemoglobin 13.1 g/dL (12.0-15.5) Hematocrit 38.9 % (36.0-47.0) Mean Corpuscular Volume 88 fL (79-100) Mean Corpuscular Hemoglobin 30 pg (25-35) Mean Corpuscular Hemoglobin Concent 34 g/dL (31-37) Red Cell Distribution Width 16.5 % (11.5-14.5) H Platelet Count 194 x10^3/uL (140-400) Neutrophils (%) (Auto) 59 % (31-73) Lymphocytes (%) (Auto) 32 % (24-48) Monocytes (%) (Auto) 7 % (0-9) Eosinophils (%) (Auto) 2 % (0-3) Basophils (%) (Auto) 1 % (0-3) Neutrophils # (Auto) 5.3 x10^3uL (1.8-7.7) Lymphocytes # (Auto) 2.9 x10^3/uL (1.0-4.8) Monocytes # (Auto) 0.7 x10^3/uL (0.0-1.1) Eosinophils # (Auto) 0.2 x10^3/uL (0.0-0.7) Basophils # (Auto) 0.1 x10^3/uL (0.0-0.2) Activated Partial Thromboplast Time 23 SEC (23-33) Sodium Level 137 mmol/L (136-145) Potassium Level 3.7 mmol/L (3.5-5.1) Chloride Level 102 mmol/L (98-107) Carbon Dioxide Level 26 mmol/L (21-32) Anion Gap 9 (6-14) Blood Urea Nitrogen 11 mg/dL (7-20) Creatinine 0.8 mg/dL (0.6-1.0) Estimated GFR (Cockcroft-Gault) 79.9 Glucose Level 347 mg/dL (70-99) H Calcium Level 8.8 mg/dL (8.5-10.1) Magnesium Level 1.8 mg/dL (1.8-2.4) Total Bilirubin 0.3 mg/dL (0.2-1.0) Direct Bilirubin 0.1 mg/dL (0.0-0.2) Aspartate Amino Transferase (AST) 34 U/L (15-37) Alanine Aminotransferase (ALT) 81 U/L (14-59) H Alkaline Phosphatase 115 U/L (46-116) Total Protein 6.8 g/dL (6.4-8.2) Albumin 3.3 g/dL (3.4-5.0) L Amylase Level 19 U/L (25-115) L Lipase 199 U/L (73-393) EKG EKG My interpretation EKG shows a sinus rhythm at 99 bpm. There is a left upward axis. Incomplete right bundle branch block and some nonspecific contour changes[] Radiology/Procedures Radiology/Procedures [][address] [address] IMAGING REPORT Signed PATIENT: SANFORD RANDHAWA ACCOUNT: [id number] : 1980 LOCATION: ER AGE: 39 SEX: F EXAM STATUS: REG ER ORD. PHYSICIAN: RICKIE LAMB MD REASON: Hematuria,Right side abd pain.Hx harshil,hysterectomy,kidney stones PROCEDURE: CT ABDOMEN PELVIS WO CONTRAST CT ABDOMEN PELVIS WO CONTRAST INDICATION: Hematuria. Right-sided abdominal pain. EXAM: Noncontrast CT of the abdomen and pelvis. Coronal and sagittal reformatted images were performed. PQRS compliance statement: One or more of the following individualized dose reduction techniques were utilized for this examination: 1. Automated exposure control 2. Adjustment of the mA and/or kV according to patient size 3. Use of iterative reconstruction technique COMPARISON: 03/27/2019 FINDINGS: No free air, free fluid, or fluid collection. Lower chest: The visualized lower lungs are aerated. No pleural or pericardial effusion. ABDOMEN: Liver: The noncontrast liver is homogeneous in attenuation. Gallbladder and biliary: Cholecystectomy. Normal caliber bile ducts. Spleen: Normal spleen. Pancreas: The noncontrast pancreas is homogeneous in attenuation without peripancreatic inflammatory changes. Adrenal glands: Normal adrenal glands. Kidneys and ureters: No opaque urinary calculi. Normal kidneys and ureters. GI tract: The stomach is decompressed and poorly evaluated. Normal caliber small bowel and colon. Normal appendix. Vascular structures: Normal caliber abdominal aorta. Lymph nodes: No lymphadenopathy in the abdomen or pelvis. PELVIS: Genitourinary system: Normal bladder. Hysterectomy. SKELETAL STRUCTURES AND SOFT TISSUES: No fracture or destructive lesion in the visualized skeleton. IMPRESSION: No acute process. No hydronephrosis or opaque ureteral calculi. Electronically signed by: Karo Bahena MD (06/17/2019 12:33 AM) [facility] DICTATED AND SIGNED BY: KARO BAHENA MD DATE: 06/17/19 0033 CC: RICKIE LAMB MD; EDIE MLILER-Bean ~ Course & Med Decision Making Course & Med Decision Making Pertinent Labs and Imaging studies reviewed. (See chart for details) Pt. Admitted to Dr. Deleon- will obtain contrast CT once pt hydrated. [] Final Impression Final Impression 1. Abdomen Pain-Rt. upper and Rt. flank 2. Hematuria 3. DM- Hyperglycemia 347 4. Constipation 5. Dehydration 6. Tobacco Use [] Dragon Disclaimer Dragon Disclaimer This electronic medical record was generated, in whole or in part, using a voice recognition dictation system. Dragon Disclaimer This chart was dictated in whole or in part using Voice Recognition software in a busy, high-work load, and often noisy Emergency Department environment. It may contain unintended and wholly unrecognized errors or omissions. RICKIE LAMB MD Jun 16, 2019 22:38
[2019-06-16] MEDS ORDERED: IV NORMAL SALINE 1,000ML 1,000 ML IV SCH (22:43)
[2019-06-16] MEDS ORDERED: FAMOTIDINE 20 MG/2 ML VIAL IVP ONE (22:45)
[2019-06-16] MEDS ORDERED: ONDANSETRON PF 4 MG/2 ML VIAL. IV ONE (22:45)
[2019-06-16 23:11] LABS: BILIRUBIN,URINE NEG (NEG); CLARITY,URINE CLOUDY; COLOR,URINE YELLOW; GLUCOSE,URINE >=1000 mg/dL (NEG); NITRITE,URINE NEG (NEG); RBC,URINE 20-40 /HPF (0-2); UROBILINOGEN,URINE 0.2 mg/dL (0.2 mg/dL)
[2019-06-16 23:12] LABS: BACTERIA,URINE FEW /HPF (0-FEW); SQUAMOUS EPITHELIAL CELL,UR OCC /LPF; WBC,URINE 0 /HPF (0-4)
[2019-06-16 23:18] LABS: BARBITURATES NEG (NEG); BENZODIAZEPINES POS (NEG); CANNABINOIDS NEG (NEG); COCAINE NEG (NEG); METHADONE NEG (NEG); OPIATES NEG (NEG); PHENCYCLIDINE NEG (NEG)
[2019-06-16 23:21] LABS: AMPHETAMINE/METHAMPHETAMINE NEG (NEG)
--- NOTE | 2019-06-16 23:25 | EKG ---
[address] [address] Test Date: 2019-06-16 Test Time: 23:24:37 Pat Name: SANFORD RANDHAWA Department: Room: Gender: F Jet Man: : 1980 Requested By: RICKIE LAMB Order Number: [id number] Reading MD: Hany Dias Measurements Intervals [place] Rate: 99 P: 27 [place]: 148 QRS: -21 QRSD: 84 T: 28 QT: 344 QTc: 447 Interpretive Statements SINUS RHYTHM LEFTWARD AXIS INCOMPLETE RIGHT BUNDLE BRANCH BLOCK Electronically Signed On 07-02-2019 14:41:48 CDT by Hany Dias
[2019-06-16 23:37] LABS: BASO # 0.1 x10^3/uL (0.0-0.2); BASO % 1 % (0-3); EOS # 0.2 x10^3/uL (0.0-0.7); EOS % 2 % (0-3); HEMATOCRIT 38.9 % (36.0-47.0); HEMOGLOBIN 13.1 g/dL (12.0-15.5); LYMPH # 2.9 x10^3/uL (1.0-4.8); LYMPH % 32 % (24-48); MEAN CORPUSCULAR HEMOGLOBIN 30 pg (25-35); MEAN CORPUSCULAR HGB CONC 34 g/dL (31-37); MEAN CORPUSCULAR VOLUME 88 fL (79-100); MONO # 0.7 x10^3/uL (0.0-1.1); MONO % 7 % (0-9); NEUT # 5.3 x10^3uL (1.8-7.7); NEUT % 59 % (31-73); PLATELET COUNT 194 x10^3/uL (140-400); RED BLOOD COUNT 4.42 x10^6/uL (3.50-5.40); RED CELL DISTRIBUTION WIDTH 16.5 % (11.5-14.5); WHITE BLOOD COUNT 9.1 x10^3/uL (4.0-11.0)
[2019-06-16 23:46] LABS: ALBUMIN 3.3 g/dL (3.4-5.0); CALCIUM 8.8 mg/dL (8.5-10.1); CREATININE 0.8 mg/dL (0.6-1.0); DIRECT BILIRUBIN 0.1 mg/dL (0.0-0.2); GFR 79.9; MAGNESIUM 1.8 mg/dL (1.8-2.4); POTASSIUM 3.7 mmol/L (3.5-5.1); TOTAL BILIRUBIN 0.3 mg/dL (0.2-1.0); TOTAL PROTEIN 6.8 g/dL (6.4-8.2)
[2019-06-17] MEDS ORDERED: INSULIN REGULAR VIAL 150 UNIT in 0.9 % SODIUM CHLORIDE 150ML 150 ML IV ONE ×2
[2019-06-17] MEDS ORDERED: KETOROLAC 30 MG/ML VIAL. IV ONE
[2019-06-17] MEDS ORDERED: MORPHINE SULFATE 10 MG/ML SYRINGE. SQ ONE
[2019-06-17] MEDS ORDERED: INSULIN REGULAR 100 UNIT/ML 3ML VIAL. IV ONE (00:15)
--- NOTE | 2019-06-17 00:36 | RAD ---
CT ABDOMEN PELVIS WO CONTRAST INDICATION: Hematuria. Right-sided abdominal pain. EXAM: Noncontrast CT of the abdomen and pelvis. Coronal and sagittal reformatted images were performed. PQRS compliance statement: One or more of the following individualized dose reduction techniques were utilized for this examination: 1. Automated exposure control 2. Adjustment of the mA and/or kV according to patient size 3. Use of iterative reconstruction technique COMPARISON: 03/27/2019 FINDINGS: No free air, free fluid, or fluid collection. Lower chest: The visualized lower lungs are aerated. No pleural or pericardial effusion. ABDOMEN: Liver: The noncontrast liver is homogeneous in attenuation. Gallbladder and biliary: Cholecystectomy. Normal caliber bile ducts. Spleen: Normal spleen. Pancreas: The noncontrast pancreas is homogeneous in attenuation without peripancreatic inflammatory changes. Adrenal glands: Normal adrenal glands. Kidneys and ureters: No opaque urinary calculi. Normal kidneys and ureters. GI tract: The stomach is decompressed and poorly evaluated. Normal caliber small bowel and colon. Normal appendix. Vascular structures: Normal caliber abdominal aorta. Lymph nodes: No lymphadenopathy in the abdomen or pelvis. PELVIS: Genitourinary system: Normal bladder. Hysterectomy. SKELETAL STRUCTURES AND SOFT TISSUES: No fracture or destructive lesion in the visualized skeleton. IMPRESSION: No acute process. No hydronephrosis or opaque ureteral calculi. Electronically signed by: Ramon Bahena MD (06/17/2019 12:33 AM) [facility]
[2019-06-17] MEDS ORDERED: ACETAMINOPHEN 325 MG TABLET PO PRN (01:00)
[2019-06-17] MEDS ORDERED: ONDANSETRON PF 4 MG/2 ML VIAL. IV PRN (01:00)
[2019-06-17] MEDS ORDERED: MAGNESIUM HYDROXIDE 2,400 MG/30 ML ORAL.SUSP. PO ONE (01:00)
[2019-06-17] MEDS: IV RINGERS SOLUTION,LACTATED 1,000 ML IV SCH ×3 (03:16→11:12)
[2019-06-17] MEDS: MORPHINE SULFATE 2 MG/ML DISP.SYRIN. IV PRN ×3 (03:20→11:49)
--- NOTE | 2019-06-17 03:36 | RAD ---
ACUTE ABDOMEN SERIES INDICATION: Abdominal pain. COMPARISON STUDY: 06/16/2019. FINDINGS: Lungs: Normal lung volume. No pulmonary mass or consolidation. The tracheobronchial tree and hilar structures are normal. Pleura: No pleural effusion or pneumothorax. Heart and Mediastinum: The cardiomediastinal silhouette is normal. The great vessels of the thorax are normal. Abdomen: No free air. Nonobstructive bowel gas pattern. Moderate colonic stool Bones and Soft Tissues: The bones and soft tissues are within normal limits. IMPRESSION: No acute cardiopulmonary process. Nonobstructive bowel gas pattern. No free air. Moderate colonic stool. Electronically signed by: Ramon Bahena MD (06/17/2019 3:33 AM) [facility]
[2019-06-17 04:03] VITALS: BP 115/75
[2019-06-17] MEDS ORDERED: IOHEXOL 300 MG/ML 75 ML VIAL. IV ONE (04:30)
[2019-06-17] MEDS ORDERED: IOHEXOL 240 MG/ML 50ML VIAL. PO ONE (04:30)
[2019-06-17] MEDS ORDERED: CONTRAST GIVEN MC PRN (04:30)
[2019-06-17] MEDS ORDERED: ALPR1TAB2 PO (05:31)
[2019-06-17] MEDS ORDERED: TRAZ-86 PO (05:31)
[2019-06-17] MEDS ORDERED: DESV50TA PO (05:31)
[2019-06-17] MEDS ORDERED: PANT40TA3 PO (05:31)
--- NOTE | 2019-06-17 06:42 | RAD ---
CT ABD PELV W/ORAL IV CONTRAST History: Hematuria. Right-sided abdominal pain. Comparison: Noncontrast CT abdomen pelvis done earlier the same day Technique: After administration of intravenous contrast, helical CT of the abdomen and pelvis was performed from the lung bases through the ischial tuberosities. Coronal and sagittal reconstructions were obtained. 75 mL of Omnipaque 300 were used. One or more of the following dose reduction techniques were utilized: Automated exposure control (AEC), Adjustment of mA and/or kV according to patient size, Use of iterative reconstruction technique such as ASiR, CT scan done according to ALARA and image gently/image wisely Abdomen Findings: The visualized lung bases are clear. The pancreas, spleen, and bilateral adrenal glands are normal. Cholecystectomy. Liver measures 22 cm craniocaudad. Symmetric renal enhancement. There is no focal renal mass. There is no hydronephrosis. The visualized loops of small bowel are normal. The visualized loops of large bowel are normal. There is no evidence of bowel obstruction. Appendix is normal. There is no free fluid. There is no mesenteric or retroperitoneal adenopathy. The abdominal aorta is normal in caliber. Pelvis Findings: Urinary bladder is normal. No pelvic free fluid. There is no pelvic or inguinal adenopathy. Hysterectomy. There is no acute bony abnormality. IMPRESSION: No acute process. Normal caliber bowel. No fluid collection or mass. Electronically signed by: Ramon Bahena MD (06/17/2019 6:39 AM) [facility]
[2019-06-17 07:14] VITALS: BP 110/78
[2019-06-17] MEDS: IPRATRPIUM/ALBUTEROL 0.5/2.5MG 3 ML NEBU. NEB SCH ×2 (08:00→10:47)
[2019-06-17] MEDS ORDERED: FAMOTIDINE 20 MG/2 ML VIAL IVP SCH (09:00)
[2019-06-17 10:46] LABS: THYROID STIM HORMONE (TSH) 0.892 uIU/mL (0.358-3.740)
[2019-06-17 11:00] VITALS: BP 101/71
--- NOTE | 2019-06-17 13:33 | HP ---
ADMIT DATE: 06/17/2019 HISTORY OF PRESENT ILLNESS: The patient a 39-year-old, female patient who came to the Emergency Room complaining of abdominal pain, mostly on the right side and running down to lower abdomen in the right side also, similar to what she experienced before when she has stones in her kidneys. She passed 2 stones before. She also complained of some nausea, but no vomiting. She is known to have diabetes and recently was placed on insulin pump. She describes her pain similar to renal colic that she has had 2 previous kidney stones. The patient denied any specific ill contact or recent travel or had a bad food. She was extensively investigated in the Emergency Room, and in fact, her work showed normal white cell count. Her chemistry was also other than hyperglycemia was normal. Her amylase and lipase were normal and she has had an acute abdomen series, which basically showed no acute cardiopulmonary process, nonobstructive bowel gas pattern, no free air, moderate colonic stool. She has had abdomen and pelvis CT scan without contrast, which basically showed no hydronephrosis but radiopaque ureteral calculi. She did have CT scan of the abdomen and pelvis with oral and IV contrast, which basically showed that there is symmetric renal enhancement with no focal renal mass. There is no hydronephrosis. The visualized loops of small bowel are normal. Visualized loops of the large bowel are normal. There is no evidence of bowel obstruction. Appendix is normal. No mesenteric or retroperitoneal adenopathy. The urinary bladder is normal. No pelvic free fluid. There is no pelvic or inguinal adenopathy. She is status post hysterectomy. She was admitted to continue with IV fluid and pain management and continue with all her other medications. PAST MEDICAL HISTORY: Significant for type 2 diabetes mellitus, nonalcoholic steatohepatitis, had nephrolithiasis and has had passed stones twice before spontaneously without any intervention. PAST SURGICAL HISTORY: Significant for cholecystectomy, total abdominal hysterectomy, bilateral salpingo-oophorectomy, tonsillectomy, and umbilical hernia repair. ALLERGIES: She is allergic to LEVOFLOXACIN and VANCOMYCIN. MEDICATIONS: She is currently on following medications: She is on hydrocodone/ibuprofen 17.5/200 one tablet every 6 hours. She is on Pristiq 50 mg daily. She is on trazodone 100 mg once a day, alprazolam for Xanax 1 mg every 8 hours as needed. She is on Zofran 8 mg 4 times a day and Protonix 40 mg once a day. FAMILY HISTORY: She has 2 brothers and 3 sisters, all healthy. Her father is still alive at the age of 62 and has diabetes and atrial fibrillation. Mother is alive at age of 63 and healthy. SOCIAL HISTORY: She is , has 2 daughters and 1 son. She continues to smoke, although she is now on Chantix attempting to quit smoking. She does not drink alcohol or use any recreational drugs. She works at [employer]. REVIEW OF SYSTEMS: As per history of present illness. PHYSICAL EXAMINATION GENERAL: When I examined her, she was sitting comfortably in her bed, in no apparent respiratory distress. No pallor, jaundice, cyanosis or thyromegaly. No jugular venous distention. No limb edema. VITAL SIGNS: Her heart rate was 103, blood pressure was 132/87, temperature was 97.7, respiratory rate was 18 and oxygen saturation was 98% on room air. HEAD, EYES, EARS, NOSE, AND THROAT: Normocephalic, atraumatic. NECK: Supple. HEART: Showed normal first and second heart sounds. No gallop or murmur. CHEST: Clear to auscultation. No crepitation or rhonchi. ABDOMEN: Distended, soft, mild tenderness in the right flank area and also right lower quadrant. There is no guarding or rigidity. No organomegaly. All hernial orifice intact. Bowel sounds normal. NEUROLOGIC: She is awake, alert, responding appropriately. All cranial nerves intact. EXTREMITIES: He moves extremities without difficulty. She ambulates without assistance or assistive devices. LABORATORY DATA: Her lab work on admission showed serum sodium 137, potassium 3.7, chloride 102, bicarbonate 26, anion gap of 9, BUN 11, creatinine 0.8, estimated GFR was 80 mL per minute. Her glucose was 334, calcium was 8.8, magnesium was 1.8. Total bilirubin, AST, ALT, alkaline phosphatase were normal. Total protein 6.8, albumin 3.3. Amylase and lipase were normal. Her white cell count was 9100, hemoglobin 13, hematocrit 39, MCV 88, and platelet count of 194,000 with normal manual differential. Her aPTT was 23. Urinalysis showed the urine was yellow, cloudy with a pH of 6, specific gravity of 1.020. The urine was negative for protein, large amount of glucose, negative for ketones, large amount of blood, negative for nitrite and leukocyte esterase. There were 20-40 rbc's, no wbc's and very few bacteria. Her toxic screen was positive for benzodiazepine, negative for other drugs. Her acute abdomen series showed nonobstructive bowel gas pattern, no free air. Moderate colonic stool. CT scan of the abdomen and pelvis without contrast, showed no hydronephrosis or opaque ureteral calculi and a CT scan of the abdomen and pelvis with oral and IV contrast again showed normal-caliber bowel, no fluid collection or mass. ASSESSMENT AND PLAN: The patient was admitted to continue with IV fluid. She was actually started on IV antibiotic in the form of Rocephin and Flagyl, although she does not have any evidence of colitis or diverticulitis. No evidence of acute cholecystitis and the appendix was normal and both kidneys are enhanced symmetrically with no evidence of hydronephrosis. My plan is to continue with her current medication and advance her diet and see how she does with that. If her pain is resolved, she can be discharged later on today. SOFIYA FERNANDES MD DR: NAOMIE/andrés JOB#: [id number] / [id number]
--- NOTE | 2019-06-17 18:11 | DS ---
DATE OF DISCHARGE: 06/17/2019 HOSPITAL COURSE: The patient is a 39-year-old female patient who came with abdominal pain, mostly in the right flank radiating to right lower quadrant. She was extensively investigated and there was no evidence of any ureteral stones. The CT scan without contrast and with oral and IV contrast are essentially unremarkable. Her urinalysis showed large amount of blood, and given the fact that she has a history of nephrolithiasis before, it is assumed that she probably had passed a stone and caused the pain, but by the time I saw her, her pain has completely subsided. She was able to tolerate her diet without any problem and, therefore, she was discharged home to continue on her insulin infusion pump together with all her other medications. FINAL DISCHARGE DIAGNOSES: Renal colic, diabetes, nonalcoholic steatohepatitis, and nicotine dependence. SOFIYA FERNANDES MD DR: NAOMIE/andrés JOB#: [id number] / [id number]
[2019-06-17] MEDS ORDERED: LACTOBACILLUS RHAMNOSUS GG 1 CAPSULE. PO SCH (21:00)
[2019-06-19 00:06] LABS: HEMOGLOBIN A1C 9.5 % (4.8-5.6)
== END 2019-06-17 14:13 | disposition home or self-care (01) ==
LOC: ER 22:35 → INTOOBSV 06-17 02:28 → 1 SOUTH 06-17 02:28
PROVIDERS: ADMIT Internal Medicine; ATTEND Internal Medicine
DX: N20.0 Calculus of kidney (principal); F17.200 Nicotine dependence, unspecified, uncomplicated; E11.65 Type 2 diabetes mellitus with hyperglycemia; Z90.710 Acquired absence of both cervix and uterus; Z90.49 Acquired absence of other specified parts of digestive tract; Z98.890 Other specified postprocedural states; Z82.49 Family history of ischemic heart disease and other diseases of the circulatory system; Z87.442 Personal history of urinary calculi; Z83.3 Family history of diabetes mellitus; Z79.4 Long term (current) use of insulin; Z96.41 Presence of insulin pump (external) (internal); F41.9 Anxiety disorder, unspecified; J45.909 Unspecified asthma, uncomplicated; J40 Bronchitis, not specified as acute or chronic; K21.9 Gastro-esophageal reflux disease without esophagitis; E78.00 Pure hypercholesterolemia, unspecified; N39.0 Urinary tract infection, site not specified; F32.9 Major depressive disorder, single episode, unspecified; I10 Essential (primary) hypertension; K75.81 Nonalcoholic steatohepatitis (NASH); K42.9 Umbilical hernia without obstruction or gangrene; K59.00 Constipation, unspecified
CPT/HCPCS: 36415; 74022; 74176; 74177; 80048; 80061; 80076; 80307; 81001; 82150; 82947; 83036; 83690; 83735; 84443; 85025; 85730; 93005; 94640; 96361; 96365; 96367; 96372; 96375; 96376; 99284; G0378; J0696; J1815; J1885; J2270; J2405; J3490; J7120; J7620; Q9966; Q9967; 96374; G0379; 99285-25; J7030

== ENCOUNTER 2019-07-26 21:25 | Emergency (ER) | payer BC ==
[~2019-07-26] VITALS: Ht 162.6 cm; Wt 88.0 kg
[2019-07-26] MEDS ORDERED: oxyCODONE/APAP 5/325 1 TAB TABLET PO ONE (22:00)
[2019-07-26] MEDS ORDERED: OXYC1TAB15 PO (22:02)
--- NOTE | 2019-07-26 22:02 | PHYS DOC ---
Past History Past Medical History: Anxiety, Asthma, Bronchitis, Constipation, Depression, Diabetes, Gallstones, GERD, High Cholesterol, Hypertension, Kidney Stones, Pancreatitis, UTI, Other Additional Past Medical Histor: DIVERTICULOSIS, NONALCOHOLIC FATTY LIVER DISEASE Past Surgical History: Cholecystectomy, Hysterectomy, Tonsillectomy Additional Past Surgical Histo: liver biopsy, hemorriodectomy Smoking: Cigarettes, Less than 1pk/day Alcohol Use: None Drug Use: None Adult General Chief Complaint Chief Complaint: POST-OP PROBLEM HPI HPI 39-year-old female presents with report of right upper abdominal pain at site of recent liver biopsy which was done this morning at [facility]. Patient reports some mild swelling to site. Denies being prescribed any pain medication. Denies fever or chills. Denies nausea or vomiting. Review of Systems Review of Systems Constitutional: Denies fever or chills Eyes: Denies redness or eye pain HENT: Denies nasal congestion or sore throat Respiratory: Denies cough or shortness of breath Cardiovascular: Denies chest pain or palpitations GI: Reports abdominal pain; denies nausea or vomiting : Denies dysuria or hematuria Musculoskeletal: Denies back pain or joint pain Integument: Denies rash or skin lesions Neurologic: Denies headache, focal weakness or sensory changes Complete systems were reviewed and found to be within normal limits, except as documented in this note. Current Medications Current Medications Current Medications Medications (Trade) Dose Ordered Sig/Yoko Start Time Stop Time Status Last Admin Dose Admin Oxycodone/ Acetaminophen (Percocet 5/325) 1 tab 1X ONCE 07/26/19 22:00 07/26/19 22:01 UNV Allergies Allergies Allergies Coded Allergies Type Severity Reaction Last Updated Verified levofloxacin Allergy Intermediate 10/06/18 Yes vancomycin Allergy Intermediate 03/18/19 Yes Physical Exam Physical Exam Constitutional: Well developed, well nourished, no acute distress, non-toxic appearance HENT: Normocephalic, atraumatic, oropharynx moist Eyes: Conjunctiva normal, no discharge Neck: Normal range of motion, no tenderness, supple Cardiovascular: Heart rate normal, regular rhythm Lungs & Thorax: Bilateral breath sounds clear to auscultation, no wheezing Abdomen: Soft, mild right upper quadrant tenderness, no guarding/rebound tenderness/distention Skin: Warm, dry, no erythema, no rash Back: No tenderness, no CVA tenderness Extremities: No tenderness, ROM intact, no edema Neurologic: Alert and oriented X 3, no focal deficits noted Psychologic: Affect normal, judgement normal Current Patient Data Vital Signs Vital Signs Date Time Temp Pulse Resp B/P (MAP) Pulse Ox O2 Delivery O2 Flow Rate FiO2 07/26/19 21:31 98.7 114 20 99 Room Air EKG EKG [] Radiology/Procedures Radiology/Procedures [] Course & Med Decision Making Course & Med Decision Making Patient presents with report of upper abdominal pain at site of recent liver biopsy. No ecchymosis noted. Abdomen soft and without peritoneal signs. Tenderness noted around site of biopsy. Patient reports normal blood counts today at . Patient is afebrile. Patient does report significant CT imaging in the last year. Last CT per [employer] review from June without acute finding. Last laboratory data from June also reviewed from [facility]. Decision to empirically treat pain at this time and hold laboratory or radiologic studies at this time. Patient advised to return for worsening of symptoms or for other concerns. Pain addressed. Patient stable for discharge with outpatient follow-up with PCP/GI. Discussed findings and plan with patient and family, who acknowledge understanding and agreement. Dragon Disclaimer Dragon Disclaimer This electronic medical record was generated, in whole or in part, using a voice recognition dictation system. Departure Departure: Impression: Primary Impression: Post procedure discomfort Additional Impression: History of liver biopsy Disposition: HOME, SELF-CARE Condition: STABLE Referrals: EDIE MILLER (PCP) Patient Instructions: Liver Biopsy, Care After, [id number], Pain Relief Preop eratively and Postoperatively Scripts Oxycodone Hcl/Acetaminophen (PERCOCET 5-325 MG TABLET ) 1 Each Tablet 0.5-1 TAB PO PRN QID PRN for PAIN MDD 4 Tablet(s), #10 TAB 0 Refills Prov: ROGER MILLER DO 07/26/19 Problem Qualifiers ROGER MILLER DO Jul 26, 2019 22:02
[2019-07-26 22:04] VITALS: BP 144/50
== END 2019-07-26 22:08 | disposition home or self-care (01) ==
LOC: ER 21:25
DX: G89.18 Other acute postprocedural pain (principal); R10.11 Right upper quadrant pain; J45.909 Unspecified asthma, uncomplicated; E11.9 Type 2 diabetes mellitus without complications; K21.9 Gastro-esophageal reflux disease without esophagitis; E78.00 Pure hypercholesterolemia, unspecified; I10 Essential (primary) hypertension; F17.210 Nicotine dependence, cigarettes, uncomplicated; Z87.442 Personal history of urinary calculi; Z87.440 Personal history of urinary (tract) infections; Z90.49 Acquired absence of other specified parts of digestive tract; Z90.710 Acquired absence of both cervix and uterus; Z98.890 Other specified postprocedural states; Z88.1 Allergy status to other antibiotic agents
CPT/HCPCS: 99283

== ENCOUNTER 2019-10-31 05:57 | Emergency (ER) | payer BC ==
[~2019-10-31] VITALS: Ht 162.6 cm; Wt 86.2 kg
[~2019-10-31 05:57] MED LIST changes: +OXYC1TAB15 PO; +TRAZ-125 PO; -TRAZ-86 PO
--- NOTE | 2019-10-31 06:26 | EKG ---
[address] [address] Test Date: 2019-10-31 Test Time: 06:21:46 Pat Name: SANFORD RANDHAWA Department: Room: Gender: F Welt Rander: : 1980 Requested By: PEDRO PABLO BRIONES Order Number: [id number] Reading MD: Measurements Intervals [place] Rate: 107 P: 31 AL: 146 QRS: -25 QRSD: 88 T: 40 QT: 340 QTc: 453 Interpretive Statements SINUS TACHYCARDIA LEFTWARD AXIS R-S TRANSITION ZONE IN V LEADS DISPLACED TO THE LEFT QRS(T) CONTOUR ABNORMALITY CONSIDER ANTEROSEPTAL MYOCARDIAL DAMAGE POSSIBLY ABNORMAL ECG RI6.01 No previous ECG available for comparison
[2019-10-31] MEDS ORDERED: INSULIN REGULAR 100 UNIT/ML 3ML VIAL. IV ONE ×2 (06:30→07:45)
[2019-10-31] MEDS ORDERED: IV NORMAL SALINE 1,000ML 1,000 ML IV ONE (06:30)
[2019-10-31 06:31] LABS: BASO % 0 % (0-3); EOS # 0.1 x10^3/uL (0.0-0.7); EOS % 1 % (0-3); HEMOGLOBIN 13.2 g/dL (12.0-15.5); LYMPH # 2.4 x10^3/uL (1.0-4.8); LYMPH % 31 % (24-48); MEAN CORPUSCULAR HEMOGLOBIN 28 pg (25-35); MEAN CORPUSCULAR HGB CONC 33 g/dL (31-37); MEAN CORPUSCULAR VOLUME 86 fL (79-100); MONO # 0.6 x10^3/uL (0.0-1.1); MONO % 7 % (0-9); NEUT # 4.6 x10^3uL (1.8-7.7); NEUT % 60 % (31-73); PLATELET COUNT 180 x10^3/uL (140-400); RED BLOOD COUNT 4.63 x10^6/uL (3.50-5.40); RED CELL DISTRIBUTION WIDTH 16.5 % (11.5-14.5); WHITE BLOOD COUNT 7.8 x10^3/uL (4.0-11.0)
[2019-10-31 06:46] LABS: CALCIUM 8.2 mg/dL (8.5-10.1); CREATININE 0.9 mg/dL (0.6-1.0); GFR 69.7; MAGNESIUM 1.9 mg/dL (1.8-2.4)
--- NOTE | 2019-10-31 08:00 | PHYS DOC ---
Past History Past Medical History: Diabetes, Pancreatitis Additional Past Medical Histor: RODRIGUEZ Past Surgical History: Cholecystectomy, Hysterectomy, Tonsillectomy Additional Past Surgical Histo: hernia and breast reduction Smoking: Cigarettes, Less than 1pk/day Alcohol Use: None Drug Use: None Adult General Chief Complaint Chief Complaint: HYPERGLYCEMIA HPI HPI Patient is a 39 year old F who presents with high blood sugar. This morning Genesis noted her blood sugars to be over 400 and states they seem to be climbing. She has mild nausea, dry mouth and other generalized symptoms. She denies recent illness. She denies missing any medications. She is a type II diabetic with a high insulin requirement was had a recent episode of DKA. She does not feel that her symptoms are consistent with previous DKA episodes. 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 Review of Systems Review of Systems Constitutional: Denies fever or chills [] Eyes: Denies change in visual acuity, redness, or eye pain [] HENT: Denies nasal congestion or sore throat [] Respiratory: Denies cough or shortness of breath [] Cardiovascular: No additional information not addressed in HPI [] GI: Denies abdominal pain, vomiting, bloody stools or diarrhea [] : Denies dysuria or hematuria [] Musculoskeletal: Denies back pain or joint pain [] Integument: Denies rash or skin lesions [] Neurologic: Denies headache, focal weakness or sensory changes [] Endocrine: Denies polyuria or polydipsia [] All other systems were reviewed and found to be within normal limits, except as documented in this note. Family History Family History No pertinent family medical history was reported Current Medications Current Medications Current medications were reviewed. She takes Lantus 120 units daily and Humalog 50 units with meals. She took 50 units of Humalog this morning at 4 AM. Current Medications Medications (Trade) Dose Ordered Sig/Yoko Start Time Stop Time Status Last Admin Dose Admin Fentanyl Citrate (Fentanyl 2ml Vial) 25 mcg 1X ONCE 10/31/19 07:00 10/31/19 07:01 DC 10/31/19 06:55 25 MCG Insulin Human Regular (HumuLIN R VIAL) 20 unit 1X ONCE 10/31/19 07:45 10/31/19 07:50 DC Sodium Chloride 1,000 ml @ 1,000 mls/hr 1X ONCE 10/31/19 06:30 10/31/19 07:29 DC 10/31/19 06:40 1,000 MLS/HR Allergies Allergies Allergies Coded Allergies Type Severity Reaction Last Updated Verified levofloxacin Allergy Intermediate 10/06/18 Yes vancomycin Allergy Intermediate 03/18/19 Yes Physical Exam Physical Exam Constitutional: Well developed, well nourished, no acute distress, non-toxic appearance. [] HENT: Normocephalic, atraumatic, bilateral external ears normal, oropharynx moist Eyes: EOMI, conjunctiva normal, no discharge. [] Neck: Normal range of motion, no tenderness, supple, no stridor. [] Cardiovascular:Heart rate regular rhythm, Lungs & Thorax: Bilateral breath sounds clear to auscultation [] Abdomen: Bowel sounds normal, soft, no tenderness, no masses, no pulsatile masses. [] Skin: Warm, dry, no erythema, no rash. [] Extremities: No tenderness, no cyanosis, no clubbing, ROM intact, no edema. [] Neurologic: Alert and oriented X 3, normal motor function, normal sensory function, no focal deficits noted. [] Psychologic: Affect normal, judgement normal, mood normal. [] Current Patient Data Vital Signs Vital Signs Date Time Temp Pulse Resp B/P (MAP) Pulse Ox O2 Delivery O2 Flow Rate FiO2 10/31/19 07:06 106 20 122/57 (78) 95 Room Air 10/31/19 06:09 98.7 Lab Results Laboratory Tests Test 10/31/19 06:09 10/31/19 06:15 10/31/19 07:31 Glucose (Fingerstick) 540 mg/dL (70-99) *H 489 mg/dL (70-99) H White Blood Count 7.8 x10^3/uL (4.0-11.0) Red Blood Count 4.63 x10^6/uL (3.50-5.40) Hemoglobin 13.2 g/dL (12.0-15.5) Hematocrit 40.0 % (36.0-47.0) Mean Corpuscular Volume 86 fL (79-100) Mean Corpuscular Hemoglobin 28 pg (25-35) Mean Corpuscular Hemoglobin Concent 33 g/dL (31-37) Red Cell Distribution Width 16.5 % (11.5-14.5) H Platelet Count 180 x10^3/uL (140-400) Neutrophils (%) (Auto) 60 % (31-73) Lymphocytes (%) (Auto) 31 % (24-48) Monocytes (%) (Auto) 7 % (0-9) Eosinophils (%) (Auto) 1 % (0-3) Basophils (%) (Auto) 0 % (0-3) Neutrophils # (Auto) 4.6 x10^3uL (1.8-7.7) Lymphocytes # (Auto) 2.4 x10^3/uL (1.0-4.8) Monocytes # (Auto) 0.6 x10^3/uL (0.0-1.1) Eosinophils # (Auto) 0.1 x10^3/uL (0.0-0.7) Basophils # (Auto) 0.0 x10^3/uL (0.0-0.2) Sodium Level 137 mmol/L (136-145) Potassium Level 4.0 mmol/L (3.5-5.1) Chloride Level 104 mmol/L (98-107) Carbon Dioxide Level 26 mmol/L (21-32) Anion Gap 7 (6-14) Blood Urea Nitrogen 9 mg/dL (7-20) Creatinine 0.9 mg/dL (0.6-1.0) Estimated GFR (Cockcroft-Gault) 69.7 Glucose Level 519 mg/dL (70-99) *H Calcium Level 8.2 mg/dL (8.5-10.1) L Magnesium Level 1.9 mg/dL (1.8-2.4) EKG EKG Sinus tachycardia, normal [place] interval, normal QT interval, no ST segment changes, Radiology/Procedures Radiology/Procedures [] Laboratory Tests Test 10/31/19 06:09 10/31/19 06:15 10/31/19 07:31 10/31/19 09:04 Glucose (Fingerstick) 540 mg/dL (70-99) 489 mg/dL (70-99) 345 mg/dL (70-99) White Blood Count 7.8 x10^3/uL (4.0-11.0) Red Blood Count 4.63 x10^6/uL (3.50-5.40) Hemoglobin 13.2 g/dL (12.0-15.5) Hematocrit 40.0 % (36.0-47.0) Mean Corpuscular Volume 86 fL (79-100) Mean Corpuscular Hemoglobin 28 pg (25-35) Mean Corpuscular Hemoglobin Concent 33 g/dL (31-37) Red Cell Distribution Width 16.5 % (11.5-14.5) Platelet Count 180 x10^3/uL (140-400) Neutrophils (%) (Auto) 60 % (31-73) Lymphocytes (%) (Auto) 31 % (24-48) Monocytes (%) (Auto) 7 % (0-9) Eosinophils (%) (Auto) 1 % (0-3) Basophils (%) (Auto) 0 % (0-3) Neutrophils # (Auto) 4.6 x10^3uL (1.8-7.7) Lymphocytes # (Auto) 2.4 x10^3/uL (1.0-4.8) Monocytes # (Auto) 0.6 x10^3/uL (0.0-1.1) Eosinophils # (Auto) 0.1 x10^3/uL (0.0-0.7) Basophils # (Auto) 0.0 x10^3/uL (0.0-0.2) Sodium Level 137 mmol/L (136-145) Potassium Level 4.0 mmol/L (3.5-5.1) Chloride Level 104 mmol/L (98-107) Carbon Dioxide Level 26 mmol/L (21-32) Anion Gap 7 (6-14) Blood Urea Nitrogen 9 mg/dL (7-20) Creatinine 0.9 mg/dL (0.6-1.0) Estimated GFR (Cockcroft-Gault) 69.7 Glucose Level 519 mg/dL (70-99) Calcium Level 8.2 mg/dL (8.5-10.1) Magnesium Level 1.9 mg/dL (1.8-2.4) Course & Med Decision Making Course & Med Decision Making Pertinent Labs and Imaging studies reviewed. (See chart for details) Genesis was initially given regular insulin 10 units IV and a normal saline bolus. Her sugars reduced by approximately 50 mg/dL. She was given an additional 20 units and was monitored for 60 minutes thereafter. She was advised to recheck her blood sugars 4 hours after discharge. If her blood sugars are over 200 at that time she was advised to give 10 units of supplemental short-acting insulin, Humalog. She was also advised to contact her endocrinology office as soon as possible for further management. Dragon Disclaimer Dragon Disclaimer This electronic medical record was generated, in whole or in part, using a voice recognition dictation system. Departure Departure: Impression: Primary Impression: Hyperglycemia Disposition: 01 HOME, SELF-CARE Condition: STABLE Referrals: LATHA DIA PA-C (PCP) Patient Instructions: Hyperglycemia Additional Instructions: Genesis was seen in the emergency department for high blood sugars. No emergency medical condition was found on history or physical exam. She was given IV fluids and regular insulin IV for a total of 30 units. Her blood sugars did reduce. She was encouraged to recheck her blood sugars in 4 hours and to give an additional dose of Humalog 10 units if her blood sugar is greater than 200. She may repeat this hourly until her blood sugar is below 200. She was encouraged to contact her endocrinology office as soon as possible and to follow the recommendations for further management. She was encouraged to follow up with her local company tanker driver as soon as possible for further management of her diabetes. PEDRO PABLO BRIONES MD Oct 31, 2019 08:00
[2019-10-31 09:18] VITALS: BP 114/74
[2019-11-07] MEDS ORDERED: OXYC5TAB4 PO (13:52)
== END 2019-10-31 09:30 | disposition home or self-care (01) ==
LOC: ER 05:57
DX: E11.65 Type 2 diabetes mellitus with hyperglycemia (principal); F17.210 Nicotine dependence, cigarettes, uncomplicated; Z88.1 Allergy status to other antibiotic agents
CPT/HCPCS: 36415; 80048; 82947; 83735; 85025; 93005; 96361; 96374; 96375; 96376; 99284; J1815; J3010; J7030

== ENCOUNTER 2019-11-05 18:04 | Inpatient (IN) | payer BC ==
[~2019-11-05] VITALS: Ht 162.6 cm; Wt 91.1 kg
[2019-11-05] MEDS ORDERED: IV NORMAL SALINE 1,000ML 1,000 ML IV SCH (18:39)
[2019-11-05] MEDS ORDERED: INSULIN REGULAR 100 UNIT/ML 3ML VIAL. IV ONE ×2 (18:45→20:00)
[2019-11-05] MEDS ORDERED: ONDANSETRON PF 4 MG/2 ML VIAL. IVP ONE (18:45)
--- NOTE | 2019-11-05 18:47 | PHYS DOC ---
Past History Past Medical History: Diabetes, Pancreatitis Additional Past Medical Histor: RODRIGUEZ Past Surgical History: Cholecystectomy, Hysterectomy, Tonsillectomy Additional Past Surgical Histo: hernia and breast reduction Smoking: Cigarettes, Less than 1pk/day Alcohol Use: None Drug Use: None Adult General Chief Complaint Chief Complaint: HYPERGLYCEMIA HPI HPI Patient is a 39-year-old female who presents with complaint of elevated blood sugars as well as nausea and vomiting. Patient states that her sugars have been elevated for the last couple of months. She states that she has been nauseated today and has had 2 episodes of vomiting earlier this morning. She does indicate that she has some pain in her right upper abdomen that she states she believes is her liver. She states that she has not been eating anything because she is afraid to eat. She denies any chest pain or shortness of breath. She denies any fever. She states that she is taking her medications as directed.[] Review of Systems Review of Systems Constitutional: Denies fever or chills [] Respiratory: Denies cough or shortness of breath [] Cardiovascular: No additional information not addressed in HPI [] GI: Complains of abdominal discomfort with nausea and vomiting. Denies diarrhea [] : Denies dysuria or hematuria [] Neurologic: Denies headache, focal weakness or sensory changes [] All other systems were reviewed and found to be within normal limits, except as documented in this note. Current Medications Current Medications Current Medications Medications (Trade) Dose Ordered Sig/Yoko Start Time Stop Time Status Last Admin Dose Admin Insulin Human Regular (HumuLIN R VIAL) 8 unit 1X ONCE 11/05/19 18:45 11/05/19 18:46 UNV Ondansetron HCl (Zofran) 4 mg 1X ONCE 11/05/19 18:45 11/05/19 18:46 UNV Sodium Chloride 1,000 ml @ 1,000 mls/hr Q1H 11/05/19 18:39 11/05/19 19:38 UNV Allergies Allergies Allergies Coded Allergies Type Severity Reaction Last Updated Verified levofloxacin Allergy Intermediate 10/06/18 Yes vancomycin Allergy Intermediate 03/18/19 Yes Physical Exam Physical Exam Constitutional: Well developed, well nourished, no acute distress, non-toxic appearance. [] HENT: Normocephalic, atraumatic, bilateral external ears normal, oropharynx moist, no oral exudates, nose normal. [] Eyes: PERRLA, EOMI, conjunctiva normal, no discharge. [] Neck: Normal range of motion, no tenderness, supple, no stridor. [] Cardiovascular:Heart rate regular rhythm, no murmur [] Lungs & Thorax: Bilateral breath sounds clear to auscultation [] Abdomen: Bowel sounds normal, soft, no tenderness, no masses, no pulsatile masses. [] Skin: Warm, dry, no erythema, no rash. [] Back: No tenderness, no CVA tenderness. [] Extremities: No tenderness, no cyanosis, no clubbing, ROM intact, no edema. [] Neurologic: Alert and oriented X 3, normal motor function, normal sensory function, no focal deficits noted. [] Psychologic: Affect normal, judgement normal, mood normal. [] Current Patient Data Lab Results Laboratory Tests Test 11/05/19 18:25 Glucose (Fingerstick) 468 mg/dL (70-99) H EKG EKG [] Radiology/Procedures Radiology/Procedures [] Course & Med Decision Making Course & Med Decision Making Pertinent Labs and Imaging studies reviewed. (See chart for details) [] Dragon Disclaimer Dragon Disclaimer This electronic medical record was generated, in whole or in part, using a voice recognition dictation system. Departure Departure: Impression: Primary Impression: Uncontrolled type 2 diabetes mellitus with hyperglycemia Additional Impressions: Upper abdominal pain Vomiting Disposition: ADMITTED INPATIENT Admitting Physician: Kirsten Deleon Condition: IMPROVED Referrals: LATHA DIA PA-C (PCP) Problem Qualifiers Additional Impressions: Vomiting Vomiting type: unspecified Vomiting Intractability: non-intractable Nausea presence: with nausea Qualified Codes: R11.2 - Nausea with vomiting, unspecified JOSE L BUCKLEY Jr. DO Nov 05, 2019 18:47
[2019-11-05 19:08] LABS: BASO % 1 % (0-3); EOS # 0.1 x10^3/uL (0.0-0.7); EOS % 2 % (0-3); LYMPH # 2.3 x10^3/uL (1.0-4.8); LYMPH % 30 % (24-48); MEAN CORPUSCULAR HEMOGLOBIN 28 pg (25-35); MEAN CORPUSCULAR HGB CONC 32 g/dL (31-37); MEAN CORPUSCULAR VOLUME 86 fL (79-100); MONO # 0.5 x10^3/uL (0.0-1.1); MONO % 6 % (0-9); NEUT # 4.9 x10^3uL (1.8-7.7); NEUT % 62 % (31-73); PLATELET COUNT 208 x10^3/uL (140-400); RED BLOOD COUNT 4.63 x10^6/uL (3.50-5.40); RED CELL DISTRIBUTION WIDTH 16.7 % (11.5-14.5); WHITE BLOOD COUNT 7.8 x10^3/uL (4.0-11.0)
[2019-11-05 19:15] LABS: CALCIUM 8.8 mg/dL (8.5-10.1); CREATININE 0.9 mg/dL (0.6-1.0); GFR 69.7; POTASSIUM 4.2 mmol/L (3.5-5.1)
[2019-11-05 19:25] LABS: ALBUMIN 3.2 g/dL (3.4-5.0); ALBUMIN/GLOBULIN RATIO 0.9 (1.0-1.7); TOTAL BILIRUBIN 0.4 mg/dL (0.2-1.0); TOTAL PROTEIN 6.8 g/dL (6.4-8.2)
[2019-11-05 19:32] LABS: BILIRUBIN,URINE NEG (NEG); CLARITY,URINE CLEAR; COLOR,URINE COLORLESS; GLUCOSE,URINE 500 mg/dL (NEG)
[2019-11-05 19:33] LABS: BACTERIA,URINE FEW /HPF (0-FEW); NITRITE,URINE NEG (NEG); SQUAMOUS EPITHELIAL CELL,UR FEW /LPF; UROBILINOGEN,URINE 0.2 mg/dL (0.2 mg/dL)
[2019-11-05] MEDS ORDERED: IV NORMAL SALINE 1,000ML 1,000 ML IV ONE (20:00)
[2019-11-05] MEDS ORDERED: ONDANSETRON PF 4 MG/2 ML VIAL. IV PRN (21:30)
--- NOTE | 2019-11-05 23:40 | NUR ---
ADMISSION: The patient, SANFORD RANDHAWA, 39 y/o, F admitted by SOFIYA FERNANDES MD, was given written information regarding hospital policies, unit procedures and contact persons. Pt to room 120 via [facility] accompanied by [facility] and nursing sup. Pt here for c/o elevated blood sugars, RUQ pain and nausea. Pt reports FSBS reached 500's while at home today, despite taking home insulins as directed. PMH and home meds reviewed with pt. IV fluids started per order. PRN morphine given per pt request for c/o abdominal pain rates 05/19. Pt reports immediate relief. Resting in bed, drinking water. Discussed POC, V/U. Call light in reach. Valuables were checked and logged. Left in room with patient.
[2019-11-05 23:55] VITALS: BP 121/68
[2019-11-06] MEDS: MORPHINE SULFATE 2 MG/ML DISP.SYRIN. IV PRN ×9 (00:16→23:59)
[2019-11-06] MEDS: IV NORMAL SALINE 1,000ML 1,000 ML IV SCH ×3 (00:16→13:38)
[2019-11-06] MEDS ORDERED: PANT40TA5 PO (01:47)
[2019-11-06] MEDS ORDERED: INSU100I13 SQ (01:47)
[2019-11-06] MEDS ORDERED: DESV100T12 PO (01:47)
[2019-11-06] MEDS ORDERED: ALPR1TAB6 PO (01:47)
[2019-11-06] MEDS ORDERED: INSU100V SQ (01:47)
[2019-11-06] MEDS ORDERED: GABA300C8 PO (02:57)
[2019-11-06 05:42] VITALS: BP 103/65
[2019-11-06 06:38] LABS: BASO # 0.1 x10^3/uL (0.0-0.2); BASO % 1 % (0-3); EOS # 0.1 x10^3/uL (0.0-0.7); EOS % 2 % (0-3); HEMATOCRIT 36.7 % (36.0-47.0); HEMOGLOBIN 12.2 g/dL (12.0-15.5); LYMPH # 2.7 x10^3/uL (1.0-4.8); LYMPH % 36 % (24-48); MEAN CORPUSCULAR HEMOGLOBIN 28 pg (25-35); MEAN CORPUSCULAR HGB CONC 33 g/dL (31-37); MEAN CORPUSCULAR VOLUME 85 fL (79-100); MONO # 0.6 x10^3/uL (0.0-1.1); MONO % 8 % (0-9); NEUT # 4.2 x10^3uL (1.8-7.7); NEUT % 54 % (31-73); PLATELET COUNT 188 x10^3/uL (140-400); RED BLOOD COUNT 4.32 x10^6/uL (3.50-5.40); RED CELL DISTRIBUTION WIDTH 16.3 % (11.5-14.5); WHITE BLOOD COUNT 7.7 x10^3/uL (4.0-11.0)
[2019-11-06 06:40] LABS: CALCIUM 8.4 mg/dL (8.5-10.1); CREATININE 0.6 mg/dL (0.6-1.0); GFR 111.3; POTASSIUM 3.8 mmol/L (3.5-5.1)
[2019-11-06] MEDS ORDERED: INSULIN GLARGINE HUM REC ANLOG 120 UNIT SQ SCH (08:00)
[2019-11-06] MEDS ORDERED: ALPRAZolam 0.5 MG TABLET PO PRN (08:00)
[2019-11-06] MEDS ORDERED: INSULIN LISPRO 300 UNITS/3 ML VIAL. SQ SCH ×2 (08:10→17:00)
[2019-11-06] MEDS: PANTOPRAZOLE 40 MG TABLET. PO SCH (08:20)
[2019-11-06] MEDS ORDERED: DESVENLAFAXINE 100 MG PO SCH (09:00)
--- NOTE | 2019-11-06 10:12 | NUR ---
NURSING NOTE PT WAS IN HER BED THIS AM UPON ASSESSMENT AND MEDICATION ADMINISTRATION. PT DENIES NAUSEA AND STATES SHE IS FEELING BETTER TODAY AND THAT SHE SLEPT GOOD TODAY. PT STATES SHE USES 120 UNITS OF LANTUS AROUND NOON AND 50 UNITS OF HUMALOG TID BEFORE MEALS. PT C/O PAIN IN HER ABD 05/19 AND REQUEST FOR HER MORPHINE WHICH DID HELP HER PAIN PER PT. PT HAD WHEEZE THIS AM UPON AUSCULTATION OF HER LUNGS. STATES SHE IS A SMOKER AND TRYING TO QUIT AND USUALLY WAKES UP WITH A COUGH. WILL CONTINUE TO MONITOR. YUN SMITH.
[2019-11-06 10:40] VITALS: BP 105/63
[2019-11-06] MEDS ORDERED: INSULIN GLARGINE SYRINGE. SQ SCH (12:00)
[2019-11-06] MEDS ORDERED: DEXTROSE 50% 25 GM / 50ML DISP.SYRIN. IV PRN (12:30)
[2019-11-06] MEDS: DESVENLAFAXINE 50 MG TAB.ER.24H. PO SCH (13:38)
[2019-11-06] MEDS ORDERED: IOHEXOL 240 MG/ML 50ML VIAL. ONE (14:19)
--- NOTE | 2019-11-06 14:36 | HP ---
ADMIT DATE: 11/05/2019 HISTORY OF PRESENT ILLNESS: The patient is a 39-year-old female patient who came to the Emergency Room with complaint of elevated blood sugar as well as nausea and vomiting. She stated that her blood sugar has been elevated for the last couple of months. She did develop nausea on the day of admission and had 2 episodes of vomiting. Does indicate that she has some pain in her right upper abdomen that is mostly there, does not go through into the back. She also stated that she has not eaten anything because she is afraid to eat. Denied any chest pain, denied any shortness of breath. Denied any dysuria, frequency or hematuria. She did state that she has been taking her medication as directed. She was extensively evaluated in the Emergency Room, was found to have hyperglycemia with a blood sugar of 468, although she was not in diabetic ketoacidosis. She has also transaminitis with an elevated AST, ALT, alkaline phosphatase. Her urinalysis was essentially unremarkable with very few bacteria, 3-5 rbc's, 1-4 wbc's, negative for nitrites. Her toxic screen showed the acetone level was negative. Has had no x-rays done or any other imaging, was admitted with diagnosis of uncontrolled type 2 diabetes with hyperglycemia, upper abdominal pain and vomiting. She was continued on IV fluid and was continued on IV pain medication. PAST MEDICAL HISTORY: Significant for type 2 diabetes mellitus. She also had stage 3 nonalcoholic steatohepatitis and apparently has a history of pancreatitis. PAST SURGICAL HISTORY: Significant for tonsillectomy, hysterectomy, cholecystectomy, hernia repair and breast reduction surgery. She has also surgeries in both ankles, tightening her ligaments. ALLERGIES: SHE IS ALLERGIC TO LEVAQUIN AND VANCOMYCIN. MEDICATIONS: She is currently on following medications: She is on gabapentin 300 mg at bedtime and desvenlafaxine 100 mg daily, alprazolam 1 mg 3 times a day as needed, Protonix 40 mg daily. She is on Lantus insulin 120 units daily with breakfast. She is also on Humalog insulin 50 units 3 times a day with meals. FAMILY HISTORY: She has 3 sisters and 2 brothers, 1 sister has diabetes. The others are healthy. Father is alive at age of 62 and has diabetes and atrial fibrillation. Mother is alive at age of 60 and healthy. SOCIAL HISTORY: She is , has 2 daughters and 1 son. She smokes 3 cigarettes per day, does not drink alcohol or use any drugs. She is currently [id number] mom. REVIEW OF SYSTEMS: The patient denied any blurring of vision, cataract, glaucoma or macular degeneration. Denied any earache, tinnitus or sensorineural deafness. Denied any nosebleeds, stuffy nose or postnasal drip. Denied any sore throat, sore tongue, toothache, hoarseness of voice or difficulty swallowing. Did complain of nausea and vomiting. Denied any diarrhea or constipation. Denied any hematemesis, melena, hematochezia. Denied any dysuria, frequency or hematuria. Denied any chest pain, shortness of breath, orthopnea, paroxysmal nocturnal dyspnea. Denied any cough, phlegm or hemoptysis. Denied any chills, rigors or fever. PHYSICAL EXAMINATION: GENERAL: On arrival to the Emergency Room, she looked well and was clearly in no apparent respiratory distress. No pallor, jaundice, cyanosis, or thyromegaly. No jugular venous distension. No limb edema. VITAL SIGNS: Her heart rate was 94, blood pressure was 145/96, temperature 98, respiratory rate 22, and oxygen saturation was 98% on room air. HEAD, EYES, EARS, NOSE AND THROAT: Showed normocephalic, atraumatic. NECK: Supple. HEART: Showed normal first and second heart sounds. No gallop or murmur. CHEST: Clear to auscultation. No crepitation or rhonchi. ABDOMEN: Distended, soft. Most of the tenderness is in the right upper quadrant. There is no guarding or rigidity. No organomegaly. All hernial orifice intact. Bowel sounds normal. NEUROLOGIC: She is awake, alert, responding appropriately. All cranial nerves intact. EXTREMITIES: She moves extremities without difficulty. She ambulates without assistance or assistive devices. LABORATORY DATA: On admission showed a white cell count of 7800, hemoglobin 13, hematocrit 40, MCV 86 and platelet count of 208,000. Her chemistry showed a serum sodium of 136, potassium 4.2, chloride 100, bicarbonate 25, anion gap of 11, BUN 4, creatinine 0.9, estimated GFR was 69 mL per minute. Her glucose was 480. Her calcium was 8.8. Total bilirubin 0.4. AST, ALT, alkaline phosphatase were elevated. Total protein was 6.8, albumin 3.2. Urinalysis showed the urine was colorless, clear with a pH of 5.5, specific gravity 1.010. There was large amount of glucose. The urine was negative for protein, ketones. There is a small amount of blood, negative for nitrite and leukocyte esterase. There were only 3-5 rbc's, 1-4 wbc's and very few bacteria. ASSESSMENT AND PLAN: The patient was basically admitted with diagnosis of poorly controlled type 2 diabetes mellitus, upper abdominal pain and vomiting. She was continued on IV fluid and all her other medications. Was continued also on IV fentanyl and subsequently IV morphine as well as IV fluid. SOFIYA FERNANDES MD DR: NAOMIE/andrés JOB#: [id number] / [id number]
[2019-11-06] MEDS ORDERED: IOHEXOL 300 MG/ML 75 ML VIAL. IV ONE (14:45)
[2019-11-06 15:55] VITALS: BP 115/69
[2019-11-06] MEDS ORDERED: CONTRAST GIVEN MC PRN (16:00)
--- NOTE | 2019-11-06 16:41 | RAD ---
CT ABD PELV W/ IV CONTRST ONLY Indication: Pain, history of pancreatitis, nausea and vomiting Technique: Postcontrast CT imaging was performed of the abdomen pelvis, multiplanar reconstruction images submitted. No oral contrast was given. One or more of the following individualized dose reduction techniques were utilized for this examination: 1. Automated exposure control 2. Adjustment of the mA and/or kV according to patient size 3. Use of iterative reconstruction technique. Comparison: June 17, 2019 Findings: There is some motion degradation. There is mild right lower lobe atelectasis. There is no pleural fluid at the visualized lung bases. No focal abnormality is identified of the spleen, pancreas, or liver. There is again probable hepatic steatosis. There is a similar degree of splenomegaly, maximal dimension about 14.9 cm by about 5.2 x 14.3 cm. There is no new pancreatic or peripancreatic fluid collection or significant inflammatory type change. There has been cholecystectomy as seen previously. There is again fat-containing lesion of the left adrenal gland up to about 2.8 cm transverse by 2.4 cm AP unchanged in size. Both kidneys enhance, no hydronephrosis. Accurate evaluation of bowel is limited without oral contrast. There may be degree of proximal small bowel wall thickening. Bowel is not significantly dilated. There is no significant inflammatory type change about the bowel. Normal caliber appendix is visualized without adjacent inflammatory change. There is mild distention of the urinary bladder. IMPRESSION: 1. No significant inflammatory type change is identified. There is no CT evidence of acute appendicitis. There may be degree of proximal small bowel wall thickening as could be seen with enteritis in the appropriate clinical setting. 2. 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 There is probable hepatic steatosis. There is similar degree of splenomegaly. Electronically signed by: Ramon Dominguez MD (11/06/2019 4:38 PM) [id number]
[2019-11-06 20:51] VITALS: BP 117/71
[2019-11-06] MEDS ORDERED: GABAPENTIN 300 MG CAPSULE. PO SCH (21:00)
[2019-11-06] MEDS: INSULIN LISPRO 300 UNITS/3 ML VIAL. SQ SCH (21:25)
--- NOTE | 2019-11-06 22:54 | PN ---
DATE: 11/06/2019 SUBJECTIVE: The patient is resting, slightly propped up in bed, continued to complain of pain in her right upper quadrant that is mostly constant in that area, is not aggravated by anything and is relieved by pain medication. Denied any radiation to the back. Denied any dysuria, frequency or hematuria. She was able to eat this morning and has eaten some of her breakfast and lunch, has had no nausea or vomiting. PHYSICAL EXAMINATION: GENERAL: When I examined her today, she looked well and was clearly in no apparent respiratory distress. No pallor, jaundice, cyanosis, or thyromegaly. No jugular venous distension. No limb edema. VITAL SIGNS: Her heart rate was 104, blood pressure was 105/63, temperature 98.2, respiratory rate 20, and oxygen saturation was 96% on room air. HEAD, EYES, EARS, NOSE AND THROAT: Showed normocephalic, atraumatic. NECK: Supple. HEART: Normal first and second heart sounds. No gallop or murmur. CHEST: Clear to auscultation. No crepitation or rhonchi. ABDOMEN: Distended, soft with tenderness mostly in the right upper quadrant. No guarding or rigidity. No organomegaly. All hernial orifices intact. Bowel sounds normal. NEUROLOGIC: She is awake, alert, responding appropriately. All cranial nerves intact. She moves extremities without difficulty. LABORATORY DATA: Her lab work this morning showed a white cell count of 7700, hemoglobin 12.2, hematocrit 36, MCV 85 and platelet count of 188,000. Her serum sodium this morning was 142, potassium 3.8, chloride 106, bicarbonate 29, anion gap of 7, BUN 5, creatinine 0.6, estimated GFR was 111. Her blood glucose was 209, calcium was 8.4. ASSESSMENT: Right upper quadrant pain, the cause of which is not clear. The patient is known to have stage 3 nonalcoholic steatohepatitis and severe hyperglycemia, resolved. Acute kidney injury, improving. Nausea, but again slightly improved. My plan is to check her serum lipase and we will arrange also for a CT scan of the abdomen and pelvis with IV contrast. We will decide the further management accordingly. SOFIYA FERNANDES MD DR: NAOMIE/andrés JOB#: [id number] / [id number]
[2019-11-06 23:34] VITALS: BP 119/72
[2019-11-07] MEDS: MORPHINE SULFATE 2 MG/ML DISP.SYRIN. IV PRN ×2 (05:11→08:43)
[2019-11-07 05:54] VITALS: BP 104/66
[2019-11-07 06:52] LABS: HEMATOCRIT 37.8 % (36.0-47.0); HEMOGLOBIN 12.7 g/dL (12.0-15.5); RED BLOOD COUNT 4.49 x10^6/uL (3.50-5.40); RED CELL DISTRIBUTION WIDTH 16.5 % (11.5-14.5); WHITE BLOOD COUNT 7.6 x10^3/uL (4.0-11.0)
[2019-11-07 07:10] LABS: ALBUMIN/GLOBULIN RATIO 0.9 (1.0-1.7); CALCIUM 8.7 mg/dL (8.5-10.1); CREATININE 0.7 mg/dL (0.6-1.0); GFR 93.2; POTASSIUM 3.6 mmol/L (3.5-5.1); TOTAL BILIRUBIN 0.5 mg/dL (0.2-1.0); TOTAL PROTEIN 6.5 g/dL (6.4-8.2)
[2019-11-07] MEDS: PANTOPRAZOLE 40 MG TABLET. PO SCH (08:31)
[2019-11-07] MEDS: DESVENLAFAXINE 50 MG TAB.ER.24H. PO SCH (08:31)
[2019-11-07] MEDS: INSULIN LISPRO 300 UNITS/3 ML VIAL. SQ SCH ×2 (08:35→12:12)
[2019-11-07 10:51] VITALS: BP 144/77
[2019-11-07] MEDS ORDERED: oxyCODONE IR 5 MG TABLET PO PRN (11:30)
[2019-11-07] MEDS ORDERED: OXYC5TAB4 PO (13:52)
--- NOTE | 2019-11-07 14:54 | NUR ---
NSG NOTE; DISCHARGE WRITTEN AND VERBAL DISCHARGE INSTRUCTIONS GIVNE TO PT WITH VERBAL UNDERSTANDING WRITTEN RX X1 GIVEN TO PT DISCHARGE TO HOME AT 1420 VIA AMB ACCOMP BY DAUGHTER
--- NOTE | 2019-11-07 20:26 | DS ---
DATE OF DISCHARGE: 11/07/2019 HOSPITAL COURSE: The patient is a 39-year-old female patient who was admitted to the Emergency Room with complaint of right upper quadrant pain and also recurrent bouts of nausea and vomiting. Her blood sugar was extremely high, although she was not in diabetic ketoacidosis. Her blood sugar was 468. Her liver enzymes were elevated. Apparently, she is known to have nonalcoholic steatohepatitis stage 3 according her, followed by school age lead teacher at [facility]. She was admitted and started on IV fluid and insulin sliding scale to start with and she did very well, has had no further episode of nausea or vomiting. She is tolerating her diet. Her lab work remained essentially stable and that her AST, ALT are elevated; however, total bilirubin and alkaline phosphatase are normal. Her serum lipase was normal. We did a CT scan of the abdomen and pelvis with IV contrast and it basically showed no significant inflammatory type change identified. There is no CT evidence of acute appendicitis. There may be a degree of proximal small bowel thickening could be seen enteritis in the appropriate clinical setting. There is again myelolipoma in the left adrenal gland. There is probable hepatic steatosis and similar degree of splenomegaly as the patient is pain free, has been up and about, tolerating her food. Her blood sugar is much better controlled. A decision was made to discharge her home to follow. She was advised obviously to arrange for a new primary care physician and to keep her appointment with her school age lead teacher at [facility]. PHYSICAL EXAMINATION: GENERAL: When I saw her this afternoon, she looked well and was clearly in no apparent respiratory distress. There was no pallor, jaundice, cyanosis or thyromegaly. No jugular venous distention. No lower limb edema. VITAL SIGNS: Her heart rate was 77, blood pressure was 144/77, temperature was 98, respiratory rate 20, and oxygen saturation was 94%. The rest of clinical exam is stable. LABORATORY DATA: Her lab work this morning showed a white cell count 7600, hemoglobin 12.7, hematocrit 37.8, MCV 84 and platelet count of 185,000. Her chemistry showed a serum sodium 142, potassium 3.6, chloride 104, bicarbonate 32, anion gap of 6, BUN 6, creatinine 0.7. Her estimated GFR was 93, glucose 171, calcium was 8.7. Total bilirubin and alkaline phosphatase normal. AST, ALT slightly elevated. Total protein 6.5, albumin 3 and lipase again was normal at 128. Urinalysis was unremarkable and toxic screen was negative. DISCHARGE MEDICATIONS: The patient was discharged home to continue on oxycodone immediate release 5 mg every 6 hours, she was given now a prescription for 7 days; alprazolam 1 mg 3 times a day, venlafaxine extended release 100 mg once a day, gabapentin 300 mg at bedtime. She is on Lantus insulin 120 units subcutaneously daily with breakfast and Humalog insulin 50 units subcutaneous 3 times a day, Protonix 40 mg daily. FINAL DISCHARGE DIAGNOSES: Poorly controlled type 2 diabetes mellitus, much better controlled; recurrent bouts of nausea and vomiting, resolved; right upper quadrant pain, resolved. She has nonalcoholic steatohepatitis and splenomegaly. She does have history of pancreatitis; however, her lipase was done twice and normal. CT scan did not show any evidence of pancreatitis. SOFIYA FERNANDES MD DR: NAOMIE/andrés JOB#: [id number] / [id number]
== END 2019-11-07 14:20 | disposition home or self-care (01) | DRG 638 ==
LOC: ER 18:04 → 1 SOUTH 21:25
PROVIDERS: ADMIT Internal Medicine; ATTEND Internal Medicine
DX: E11.65 Type 2 diabetes mellitus with hyperglycemia (principal); N17.9 Acute kidney failure, unspecified; K75.81 Nonalcoholic steatohepatitis (NASH); F17.210 Nicotine dependence, cigarettes, uncomplicated; R16.1 Splenomegaly, not elsewhere classified; Z90.49 Acquired absence of other specified parts of digestive tract; Z90.710 Acquired absence of both cervix and uterus; Z83.3 Family history of diabetes mellitus
CPT/HCPCS: 36415; 74177; 80048; 80053; 81001; 82010; 82947; 83690; 85025; 85027; 96361; 96374; 96375; 96376; J1815; J2270; J2405; J3010; Q9967; 99285-25; J7030

== ENCOUNTER 2019-11-14 21:29 | Emergency (ER) | payer BC ==
[~2019-11-14] VITALS: Ht 162.6 cm; Wt 89.5 kg
[~2019-11-14 21:29] MED LIST changes: +ALPR1TAB6 PO; +DESV100T12 PO; +GABA300C8 PO; +INSU100I13 SQ; +INSU100V SQ; +OXYC5TAB4 PO; +PANT40TA5 PO
--- NOTE | 2019-11-14 21:41 | EKG ---
[address] [address] Test Date: 2019-11-14 Test Time: 21:37:23 Pat Name: SANFORD RANDHAWA Department: Room: Gender: F Technical Information Specialist: : [id number] Requested By: ROGER MILLER Order Number: [id number] Reading MD: Measurements Intervals [place] Rate: 117 P: 40 MN: 148 QRS: -26 QRSD: 82 T: 53 QT: 308 QTc: 434 Interpretive Statements SINUS TACHYCARDIA LEFTWARD AXIS R-S TRANSITION ZONE IN V LEADS DISPLACED TO THE LEFT INCOMPLETE RIGHT BUNDLE BRANCH BLOCK QRS(T) CONTOUR ABNORMALITY CONSIDER ANTEROSEPTAL MYOCARDIAL DAMAGE POSSIBLY ABNORMAL ECG RI6.01 No previous ECG available for comparison
[2019-11-14] MEDS ORDERED: FAMOTIDINE 20 MG/2 ML VIAL IVP ONE (22:00)
[2019-11-14] MEDS ORDERED: ONDANSETRON PF 4 MG/2 ML VIAL. IVP ONE (22:00)
[2019-11-14] MEDS ORDERED: IV NORMAL SALINE 1,000ML 1,000 ML IV ONE (22:00)
[2019-11-14] MEDS ORDERED: ASPIRIN 325 MG TABLET PO ONE (22:00)
[2019-11-14 22:08] LABS: BASO # 0.1 x10^3/uL (0.0-0.2); BASO % 1 % (0-3); EOS # 0.1 x10^3/uL (0.0-0.7); EOS % 1 % (0-3); HEMATOCRIT 41.3 % (36.0-47.0); HEMOGLOBIN 13.5 g/dL (12.0-15.5); LYMPH # 2.6 x10^3/uL (1.0-4.8); LYMPH % 27 % (24-48); MEAN CORPUSCULAR HEMOGLOBIN 28 pg (25-35); MEAN CORPUSCULAR HGB CONC 33 g/dL (31-37); MEAN CORPUSCULAR VOLUME 85 fL (79-100); MONO # 0.7 x10^3/uL (0.0-1.1); MONO % 7 % (0-9); NEUT # 6.1 x10^3uL (1.8-7.7); NEUT % 64 % (31-73); PLATELET COUNT 216 x10^3/uL (140-400); RED BLOOD COUNT 4.87 x10^6/uL (3.50-5.40); RED CELL DISTRIBUTION WIDTH 16.4 % (11.5-14.5); WHITE BLOOD COUNT 9.6 x10^3/uL (4.0-11.0)
[2019-11-14 22:14] LABS: CREATININE 0.9 mg/dL (0.6-1.0); GFR 69.7; POTASSIUM 3.8 mmol/L (3.5-5.1)
--- NOTE | 2019-11-14 22:26 | PHYS DOC ---
Past History Past Medical History: Diabetes, DVT, Pancreatitis Additional Past Medical Histor: RODRIGUEZ, artherosclerosis Past Surgical History: Cholecystectomy, Hysterectomy, Tonsillectomy Additional Past Surgical Histo: hernia and breast reduction Smoking: Cigarettes, Less than 1pk/day Alcohol Use: None Drug Use: None Adult General Chief Complaint Chief Complaint: CHEST PAIN HPI HPI 39-year-old female presents with sudden left chest pain with radiation to back that started 1.5 hours ago. Patient reports pain waxes and wanes in intensity. Reports associated nausea. Patient reports she took ibuprofen at 2030. Cardiac risk factors include smoking and diabetes. Patient does report her blood sugars have been elevated into the 400s today. Denies pleuritic pain. Denies leg swe lling or calf tenderness. Patient reports history of prior DVT to upper extremities. Reports she currently is not on any blood thinners. Review of Systems Review of Systems Constitutional: Denies fever or chills Eyes: Denies redness or eye pain HENT: Denies nasal congestion or sore throat Respiratory: Denies cough or shortness of breath Cardiovascular: Reports chest pain; denies palpitations GI: Denies abdominal pain, nausea, or vomiting : Denies dysuria or hematuria Musculoskeletal: Denies back pain or joint pain Integument: Denies rash or skin lesions Neurologic: Denies headache, focal weakness or sensory changes Complete systems were reviewed and found to be within normal limits, except as documented in this note. Current Medications Current Medications Current Medications Medications (Trade) Dose Ordered Sig/Yoko Start Time Stop Time Status Last Admin Dose Admin Aspirin (Myron Aspirin) 325 mg 1X ONCE 11/14/19 22:00 11/14/19 22:03 DC Famotidine (Pepcid Vial) 20 mg 1X ONCE 11/14/19 22:00 11/14/19 22:03 DC Iohexol (Omnipaque 350 Mg/ml) 100 ml 1X ONCE 11/14/19 22:15 11/14/19 22:16 UNV Ondansetron HCl (Zofran) 4 mg 1X ONCE 11/14/19 22:00 11/14/19 22:03 DC Sodium Chloride 1,000 ml @ 1,000 mls/hr 1X ONCE 11/14/19 22:00 11/14/19 22:59 Allergies Allergies Allergies Coded Allergies Type Severity Reaction Last Updated Verified levofloxacin Allergy Intermediate 10/06/18 Yes vancomycin Allergy Intermediate 03/18/19 Yes Physical Exam Physical Exam Constitutional: Well developed, well nourished, no acute distress, non-toxic appearance, anxious HENT: Normocephalic, atraumatic, oropharynx moist Eyes: Conjunctiva normal, no discharge Neck: Normal range of motion, no tenderness, supple Cardiovascular: Heart rate tachycardia, regular rhythm Lungs & Thorax: Bilateral breath sounds clear to auscultation, no wheezing Abdomen: Soft, no tenderness Skin: Warm, dry, no erythema, no rash Extremities: No tenderness, ROM intact, no edema Neurologic: Alert and oriented X 3, no focal deficits noted Psychologic: Affect normal, judgment normal Current Patient Data Vital Signs Vital Signs Date Time Temp Pulse Resp B/P (MAP) Pulse Ox O2 Delivery O2 Flow Rate FiO2 11/14/19 21:30 98.3 111 20 122/84 (97) 95 Room Air Lab Results Laboratory Tests Test 11/14/19 21:40 White Blood Count 9.6 x10^3/uL (4.0-11.0) Red Blood Count 4.87 x10^6/uL (3.50-5.40) Hemoglobin 13.5 g/dL (12.0-15.5) Hematocrit 41.3 % (36.0-47.0) Mean Corpuscular Volume 85 fL (79-100) Mean Corpuscular Hemoglobin 28 pg (25-35) Mean Corpuscular Hemoglobin Concent 33 g/dL (31-37) Red Cell Distribution Width 16.4 % (11.5-14.5) H Platelet Count 216 x10^3/uL (140-400) Neutrophils (%) (Auto) 64 % (31-73) Lymphocytes (%) (Auto) 27 % (24-48) Monocytes (%) (Auto) 7 % (0-9) Eosinophils (%) (Auto) 1 % (0-3) Basophils (%) (Auto) 1 % (0-3) Neutrophils # (Auto) 6.1 x10^3uL (1.8-7.7) Lymphocytes # (Auto) 2.6 x10^3/uL (1.0-4.8) Monocytes # (Auto) 0.7 x10^3/uL (0.0-1.1) Eosinophils # (Auto) 0.1 x10^3/uL (0.0-0.7) Basophils # (Auto) 0.1 x10^3/uL (0.0-0.2) Prothrombin Time 10.6 SEC (9.4-11.4) Prothrombin Time INR 1.0 (0.9-1.1) Activated Partial Thromboplast Time 24 SEC (23-33) Sodium Level 137 mmol/L (136-145) Potassium Level 3.8 mmol/L (3.5-5.1) Chloride Level 99 mmol/L (98-107) Carbon Dioxide Level 27 mmol/L (21-32) Anion Gap 11 (6-14) Blood Urea Nitrogen 8 mg/dL (7-20) Creatinine 0.9 mg/dL (0.6-1.0) Estimated GFR (Cockcroft-Gault) 69.7 BUN/Creatinine Ratio 9 (6-20) Glucose Level 463 mg/dL (70-99) H Calcium Level 9.0 mg/dL (8.5-10.1) Magnesium Level Pending Total Bilirubin Pending Aspartate Amino Transferase (AST) Pending Alanine Aminotransferase (ALT) Pending Alkaline Phosphatase Pending Creatine Kinase Pending Creatine Kinase MB (Mass) Pending Creatine Kinase MB Relative Index Pending Troponin I Quantitative < 0.017 ng/mL (0-0.055) WN-Rda-D-Type Natriuretic Peptide Pending Total Protein Pending Albumin Pending Albumin/Globulin Ratio Pending Lipase Pending Acetone Level Neg (NEG) EKG EKG @2137 Sinus tachycardia at 117bpm, NO ST elevation Radiology/Procedures Radiology/Procedures PROCEDURE: CT ANGIOGRAPHY CHEST EXAM: CT chest with contrast - pulmonary embolus protocol CLINICAL HISTORY: chest pain, hx of DVT COMPARISON: None. TECHNIQUE: CT of the chest following the administration of intravenous contrast during the pulmonary arterial phase. Axial, coronal and sagittal reformatted images were generated including MIP images. ---PQRS compliance statement - One or more of the following individualized dose reduction techniques were utilized for this study: 1. Automated exposure control 2. Adjustment of the mA and/or kV according to patient size 3. Use of iterative reconstruction technique--- FINDINGS: CHEST: Diagnostic quality: Suboptimal. Pulmonary emboli: No pulmonary emboli to the level of the lobar branches. More peripheral vessels are not well assessed. Right heart strain: None Pulmonary arteries: Normal in caliber. No axillary lymphadenopathy. A prominent right hilar lymph node measuring 1 x 0.8 cm. No mediastinal or hilar lymphadenopathy. Dependent opacities in the lower lobes likely atelectasis. No lobar consolidation. No pleural effusion or pneumothorax. Heart is not enlarged. No pericardial effusion. Visualized Upper abdomen: Spleen is mildly enlarged measuring 14.5 cm. Left adrenal myelolipoma is again seen. Bones: No aggressive osseous lesion. IMPRESSION: Suboptimal contrast bolus. Within these constraints no pulmonary emboli to the level of the lobar branches. More peripheral vessels are not well assessed. Electronically signed by: Jose Newman MD (11/14/2019 10:48 PM) [id number] Course & Med Decision Making Course & Med Decision Making Pertinent Labs and Imaging studies reviewed. (See chart for details) Patient presents with report of sudden chest pain with radiation to her back. Cardiac risk factors include diabetes and smoking. Patient with prior history of DVT. Patient noted to be tachycardic upon arrival. O2 sats stable on room air. EKG stable but tachycardic. Labs obtained and posted to chart. Troponin within normal limits. HEART score 1. Hyperglycemia noted. Acetone negative. CTA chest without acute process. Symptomatic treatment provided. IV fluid hydration given. Hyperglycemia addressed with interval improvement. Advised to take medication as previously prescribed. Patient also to watch diet. Patient stable for discharge with outpatient follow-up with PCP. Discussed findings and plan with patient, who acknowledges understanding and agreement. Dragon Disclaimer Dragon Disclaimer This electronic medical record was generated, in whole or in part, using a voice recognition dictation system. Departure Departure: Impression: Primary Impression: Chest pain Additional Impression: Hypoglycemia Disposition: HOME, SELF-CARE Condition: STABLE Referrals: PEDRO PABLO JORDAN MD (PCP) Patient Instructions: Chest Pain (Nonspecific), [id number], Hyperglycemia, [id number] HEART Score for Chest Pain PTs The HEART Score for CP Pts HEART Score for Chest Pain: HEART Score for Chest Pain Response (Comments) Value History Slighlty/Non-Suspicious 0 ECG Normal 0 Age < 45 0 Risk Factors 1 or 2 Risk Factors 1 Troponin < Normal Limit 0 Total 1 Risk Factors: Risk Factors: DM, Current or recent (<one month) smoker, HTN, HLP, family history of CAD, obesity. Risk Scores: Score 0 - 3: 2.5% MACE over next 6 weeks - Discharge Home Score 4 - 6: 20.3% MACE over next 6 weeks - Admit for Clinical Observation Score 7 - 10: 72.7% MACE over next 6 weeks - Early Invasive Strategies Problem Qualifiers Primary Impression: Chest pain Chest pain type: unspecified Qualified Codes: R07.9 - Chest pain, unspecified ROGER MILLER DO Nov 14, 2019 22:25
[2019-11-14 22:30] LABS: ALBUMIN 3.6 g/dL (3.4-5.0); MAGNESIUM 1.7 mg/dL (1.8-2.4); TOTAL BILIRUBIN 0.3 mg/dL (0.2-1.0); TOTAL PROTEIN 7.1 g/dL (6.4-8.2)
[2019-11-14] MEDS ORDERED: IOHEXOL 350 MG/ML 100 ML VIAL. IV ONE (22:30)
[2019-11-14] MEDS ORDERED: INSULIN REGULAR 100 UNIT/ML 3ML VIAL. SQ ONE (22:45)
--- NOTE | 2019-11-14 22:51 | RAD ---
EXAM: CT chest with contrast - pulmonary embolus protocol CLINICAL HISTORY: chest pain, hx of DVT COMPARISON: None. TECHNIQUE: CT of the chest following the administration of intravenous contrast during the pulmonary arterial phase. Axial, coronal and sagittal reformatted images were generated including MIP images. ---PQRS compliance statement - One or more of the following individualized dose reduction techniques were utilized for this study: 1. Automated exposure control 2. Adjustment of the mA and/or kV according to patient size 3. Use of iterative reconstruction technique--- FINDINGS: CHEST: Diagnostic quality: Suboptimal. Pulmonary emboli: No pulmonary emboli to the level of the lobar branches. More peripheral vessels are not well assessed. Right heart strain: None Pulmonary arteries: Normal in caliber. No axillary lymphadenopathy. A prominent right hilar lymph node measuring 1 x 0.8 cm. No mediastinal or hilar lymphadenopathy. Dependent opacities in the lower lobes likely atelectasis. No lobar consolidation. No pleural effusion or pneumothorax. Heart is not enlarged. No pericardial effusion. Visualized Upper abdomen: Spleen is mildly enlarged measuring 14.5 cm. Left adrenal myelolipoma is again seen. Bones: No aggressive osseous lesion. IMPRESSION: Suboptimal contrast bolus. Within these constraints no pulmonary emboli to the level of the lobar branches. More peripheral vessels are not well assessed. Electronically signed by: Jose Newman MD (11/14/2019 10:48 PM) [id number]
[2019-11-14] MEDS ORDERED: MAGNESIUM CHLORIDE ER 64 MG TABLET.ER PO ONE (23:00)
[2019-11-14 23:25] LABS: CLARITY,URINE CLEAR; COLOR,URINE YELLOW
[2019-11-14 23:26] LABS: BACTERIA,URINE 0 /HPF (0-FEW); BILIRUBIN,URINE NEG (NEG); GLUCOSE,URINE >=1000 mg/dL (NEG); NITRITE,URINE NEG (NEG); RBC,URINE 0 /HPF (0-2); SQUAMOUS EPITHELIAL CELL,UR OCC /LPF; UROBILINOGEN,URINE 0.2 mg/dL (0.2 mg/dL); WBC,URINE OCC /HPF (0-4)
[2019-11-15] MEDS ORDERED: KETOROLAC 15 MG/ML VIAL. IVP ONE
[2019-11-15 01:09] VITALS: BP 118/71
== END 2019-11-15 01:15 | disposition home or self-care (01) ==
LOC: ER 21:29
DX: R07.89 Other chest pain (principal); E11.649 Type 2 diabetes mellitus with hypoglycemia without coma; F17.210 Nicotine dependence, cigarettes, uncomplicated; Z90.49 Acquired absence of other specified parts of digestive tract; Z90.710 Acquired absence of both cervix and uterus; Z88.1 Allergy status to other antibiotic agents
CPT/HCPCS: 36415; 71275; 80053; 81001; 82010; 82553; 82947; 83690; 83735; 83880; 84484; 85025; 85610; 85730; 93005; 96372; 96374; 96375; 99285; J1815; J1885; J2405; J3490; Q9967; J7030

== ENCOUNTER 2019-11-21 23:47 | Emergency (ER) | payer BC ==
[~2019-11-21] VITALS: Ht 162.6 cm; Wt 86.6 kg
[2019-11-22] MEDS ORDERED: IV NORMAL SALINE 1,000ML 1,000 ML IV SCH (00:16)
[2019-11-22] MEDS ORDERED: KETOROLAC 30 MG/ML VIAL. IVP ONE (00:30)
[2019-11-22] MEDS ORDERED: ONDANSETRON PF 4 MG/2 ML VIAL. IVP ONE (00:30)
[2019-11-22 00:34] LABS: BASO # 0.1 x10^3/uL (0.0-0.2); BASO % 1 % (0-3); EOS # 0.1 x10^3/uL (0.0-0.7); EOS % 1 % (0-3); HEMATOCRIT 38.9 % (36.0-47.0); HEMOGLOBIN 13.1 g/dL (12.0-15.5); LYMPH # 2.4 x10^3/uL (1.0-4.8); LYMPH % 29 % (24-48); MEAN CORPUSCULAR HEMOGLOBIN 28 pg (25-35); MEAN CORPUSCULAR HGB CONC 34 g/dL (31-37); MEAN CORPUSCULAR VOLUME 84 fL (79-100); MONO # 0.5 x10^3/uL (0.0-1.1); MONO % 7 % (0-9); NEUT # 5.1 x10^3uL (1.8-7.7); NEUT % 62 % (31-73); PLATELET COUNT 213 x10^3/uL (140-400); RED BLOOD COUNT 4.61 x10^6/uL (3.50-5.40); RED CELL DISTRIBUTION WIDTH 16.7 % (11.5-14.5); WHITE BLOOD COUNT 8.2 x10^3/uL (4.0-11.0)
[2019-11-22 00:40] LABS: BACTERIA,URINE 0 /HPF (0-FEW); BILIRUBIN,URINE NEG (NEG); CLARITY,URINE CLEAR; COLOR,URINE YELLOW; GLUCOSE,URINE >=1000 mg/dL (NEG); NITRITE,URINE NEG (NEG); RBC,URINE 0 /HPF (0-2); SQUAMOUS EPITHELIAL CELL,UR OCC /LPF; UROBILINOGEN,URINE 0.2 mg/dL (0.2 mg/dL); WBC,URINE RARE /HPF (0-4)
[2019-11-22 00:42] LABS: CALCIUM 9.1 mg/dL (8.5-10.1); CREATININE 0.8 mg/dL (0.6-1.0); GFR 79.9; POTASSIUM 3.8 mmol/L (3.5-5.1)
[2019-11-22 00:47] LABS: ALBUMIN 3.5 g/dL (3.4-5.0); ALBUMIN/GLOBULIN RATIO 0.9 (1.0-1.7); TOTAL BILIRUBIN 0.4 mg/dL (0.2-1.0); TOTAL PROTEIN 7.2 g/dL (6.4-8.2)
[2019-11-22] MEDS ORDERED: INSULIN REGULAR 100 UNIT/ML 3ML VIAL. IV ONE (01:00)
[2019-11-22] MEDS ORDERED: IV NORMAL SALINE 1,000ML 1,000 ML IV ONE (01:30)
--- NOTE | 2019-11-22 02:00 | PHYS DOC ---
Past History Past Medical History: Diabetes, DVT, Pancreatitis Additional Past Medical Histor: RODRIGUEZ, artherosclerosis Past Surgical History: Cholecystectomy, Hysterectomy, Tonsillectomy Additional Past Surgical Histo: hernia and breast reduction Smoking: Cigarettes, Less than 1pk/day Alcohol Use: None Drug Use: None Adult General Chief Complaint Chief Complaint: HYPERGLYCEMIA HPI HPI Patient is a 39 year old female who presents with complaint of high blood sugar. Patient has history of type 2 diabetes mellitus currently on insulin therapy. Patient has had history of recurrent hyperglycemia and has been hospitalized at [facility] for treatment. States that she started having nausea and upper abdominal pain earlier this evening. Notes that her blood sugars have been over 400. She does admit that she did not take her afternoon dose of insulin until later in the evening as she states that she did not eat lunch and thus didn't take her insulin. Denies any associated fevers or vomiting. States that she takes 50 units of Humalog before each meal and takes 120 units of Lantus daily for her current insulin regimen. Denies any shortness of breath, chest pain, dysuria, or any redness or swelling of the extremities. Review of Systems Review of Systems Constitutional: Fatigue, denies fever or chills [] Eyes: Denies change in visual acuity, redness, or eye pain [] HENT: Denies nasal congestion or sore throat [] Respiratory: Denies cough or shortness of breath [] Cardiovascular: Denies chest pain or edema[] GI: Nausea, abdominal pain, denies vomiting, bloody stools or diarrhea [] : Denies dysuria or hematuria [] Musculoskeletal: Denies back pain or joint pain [] Integument: Denies rash or skin lesions [] Neurologic: Denies headache, focal weakness or sensory changes [] All other systems were reviewed and found to be within normal limits, except as documented in this note. Current Medications Current Medications Current Medications Medications (Trade) Dose Ordered Sig/Yoko Start Time Stop Time Status Last Admin Dose Admin Insulin Human Regular (HumuLIN R VIAL) 10 unit 1X ONCE 11/22/19 01:00 11/22/19 01:01 DC 11/22/19 00:44 10 UNIT Ketorolac Tromethamine (Toradol 30mg Vial) 30 mg 1X ONCE 11/22/19 00:30 11/22/19 00:44 DC 11/22/19 00:38 30 MG Ondansetron HCl (Zofran) 4 mg 1X ONCE 11/22/19 00:30 11/22/19 00:44 DC 11/22/19 00:38 4 MG Sodium Chloride 1,000 ml @ 1,000 mls/hr 1X ONCE 11/22/19 01:30 11/22/19 02:29 11/22/19 01:17 1,000 MLS/HR Allergies Allergies Allergies Coded Allergies Type Severity Reaction Last Updated Verified levofloxacin Allergy Intermediate 10/06/18 Yes vancomycin Allergy Intermediate 03/18/19 Yes Physical Exam Physical Exam Constitutional: Alert, afebrile, appears ill but in no acute distress. [] HENT: Normocephalic, atraumatic, bilateral external ears normal, oropharynx dry, no oral exudates, nose normal. [] Eyes: PERRLA, EOMI, conjunctiva normal, no discharge. [] Neck: Normal range of motion, no tenderness, supple, no stridor. [] Cardiovascular:Heart rate regular rhythm, no murmur [] Lungs & Thorax: Bilateral breath sounds clear to auscultation [] Abdomen: Bowel sounds normal, soft, no tenderness, no masses, no pulsatile masses. [] Skin: Warm, dry, no erythema, no rash. [] Back: No tenderness, no CVA tenderness. [] Extremities: No tenderness, no cyanosis, no clubbing, ROM intact, no edema. [] Neurologic: Alert and oriented X 3, normal motor function, normal sensory function, no focal deficits noted. [] Current Patient Data Vital Signs Vital Signs Date Time Temp Pulse Resp B/P (MAP) Pulse Ox O2 Delivery O2 Flow Rate FiO2 11/22/19 00:57 95 18 127/73 (91) 97 Room Air 11/21/19 23:50 98.7 Lab Results Laboratory Tests Test 11/21/19 23:50 11/22/19 00:01 11/22/19 00:15 11/22/19 01:14 Urine Collection Type Unknown Urine Color Yellow Urine Clarity Clear Urine pH 6.0 Urine Specific [place] 1.015 Urine Protein Neg (NEG-TRACE) Urine Glucose (UA) >=1000 mg/dL (NEG) Urine Ketones (Stick) Neg mg/dL (NEG) Urine Blood Trace (NEG) Urine Nitrite Neg (NEG) Urine Bilirubin Neg (NEG) Urine Urobilinogen Dipstick 0.2 mg/dL (0.2 mg/dL) Urine Leukocyte Esterase Neg (NEG) Urine RBC 0 /HPF (0-2) Urine WBC Rare /HPF (0-4) Urine Squamous Epithelial Cells Occ /LPF Urine Bacteria 0 /HPF (0-FEW) Glucose (Fingerstick) 463 mg/dL (70-99) H 303 mg/dL (70-99) H White Blood Count 8.2 x10^3/uL (4.0-11.0) Red Blood Count 4.61 x10^6/uL (3.50-5.40) Hemoglobin 13.1 g/dL (12.0-15.5) Hematocrit 38.9 % (36.0-47.0) Mean Corpuscular Volume 84 fL (79-100) Mean Corpuscular Hemoglobin 28 pg (25-35) Mean Corpuscular Hemoglobin Concent 34 g/dL (31-37) Red Cell Distribution Width 16.7 % (11.5-14.5) H Platelet Count 213 x10^3/uL (140-400) Neutrophils (%) (Auto) 62 % (31-73) Lymphocytes (%) (Auto) 29 % (24-48) Monocytes (%) (Auto) 7 % (0-9) Eosinophils (%) (Auto) 1 % (0-3) Basophils (%) (Auto) 1 % (0-3) Neutrophils # (Auto) 5.1 x10^3uL (1.8-7.7) Lymphocytes # (Auto) 2.4 x10^3/uL (1.0-4.8) Monocytes # (Auto) 0.5 x10^3/uL (0.0-1.1) Eosinophils # (Auto) 0.1 x10^3/uL (0.0-0.7) Basophils # (Auto) 0.1 x10^3/uL (0.0-0.2) Sodium Level 137 mmol/L (136-145) Potassium Level 3.8 mmol/L (3.5-5.1) Chloride Level 99 mmol/L (98-107) Carbon Dioxide Level 29 mmol/L (21-32) Anion Gap 9 (6-14) Blood Urea Nitrogen 7 mg/dL (7-20) Creatinine 0.8 mg/dL (0.6-1.0) Estimated GFR (Cockcroft-Gault) 79.9 BUN/Creatinine Ratio 9 (6-20) Glucose Level 449 mg/dL (70-99) H Calcium Level 9.1 mg/dL (8.5-10.1) Total Bilirubin 0.4 mg/dL (0.2-1.0) Aspartate Amino Transferase (AST) 52 U/L (15-37) H Alanine Aminotransferase (ALT) 100 U/L (14-59) H Alkaline Phosphatase 113 U/L (46-116) Total Protein 7.2 g/dL (6.4-8.2) Albumin 3.5 g/dL (3.4-5.0) Albumin/Globulin Ratio 0.9 (1.0-1.7) L EKG EKG Not performed[] Radiology/Procedures Radiology/Procedures Not performed[] Course & Med Decision Making Course & Med Decision Making Pertinent Labs and Imaging studies reviewed. (See chart for details) Patient was given 2 L of IV fluids and was given 10 units of regular insulin IV. The patient's blood sugar improved to 239 in the emergency department after full treatment given. The patient states that she is feeling better at this time. Blood work shows no evidence of diabetic ketoacidosis. The patient jonatan ears appropriate for discharge from the emergency department with recommended follow-up in the next 2 days with primary doctor for reevaluation. Counseled patient on need for regular administration of insulin doses as prescribed by her provider to help keep blood sugar under control. Recommended return to the emergency department for any worsening symptoms. Patient was understanding and in agreement with treatment plan.[] Dragon Disclaimer Dragon Disclaimer This electronic medical record was generated, in whole or in part, using a voice recognition dictation system. Departure Departure: Impression: Primary Impression: Type 2 diabetes mellitus Disposition: 01 HOME, SELF-CARE Condition: IMPROVED Referrals: EDIE MILLER (PCP) Patient Instructions: Type 2 Diabetes Mellitus, Adult Additional Instructions: Follow-up with your primary care provider in the next 2 days for reevaluation. Return to the emergency department for any worsening symptoms. 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
[2019-11-22 02:27] VITALS: BP 122/72
== END 2019-11-22 02:36 | disposition home or self-care (01) ==
LOC: ER 23:47
DX: E11.65 Type 2 diabetes mellitus with hyperglycemia (principal); F17.210 Nicotine dependence, cigarettes, uncomplicated; R11.0 Nausea; R10.10 Upper abdominal pain, unspecified; Z79.4 Long term (current) use of insulin; Z90.49 Acquired absence of other specified parts of digestive tract; Z90.710 Acquired absence of both cervix and uterus; Z90.89 Acquired absence of other organs; Z88.1 Allergy status to other antibiotic agents
CPT/HCPCS: 36415; 80053; 81001; 82947; 85025; 96374; 96375; 99284; J1815; J1885; J2405; J7030

== ENCOUNTER 2019-11-29 05:24 | Observation (INO) | payer BC ==
[2019-11-29] VITALS (9 sets, daily range): BP systolic 90–114; BP diastolic 51–70
[~2019-11-29] VITALS: Ht 162.6 cm; Wt 92.0 kg
--- NOTE | 2019-11-29 05:32 | PHYS DOC ---
Past History Past Medical History: Anxiety, Constipation, Diverticulitis, Diabetes, DVT, GERD, Kidney Stones, Liver Disease, Pancreatitis, UTI, Other Additional Past Medical Histor: RODRIGUEZ, artherosclerosis Past Surgical History: Cholecystectomy, Hysterectomy, Tonsillectomy, Other Additional Past Surgical Histo: hernia and breast reduction Smoking: Cigarettes, Less than 1pk/day Alcohol Use: None Drug Use: None Adult General Chief Complaint Chief Complaint: "... My sugars are all over the place... they been 400"s.. and they tell me I need to come to ED if they stay that high.... and I ve got this Lt. lower abdomen pain... the last couple days... ".." they contantly above 400..." " I think I started to get dehydrated.. " HPI HPI Patient is a 39 year old female who presents with above hx and complaints of elevated blood sugars in the 400s. Patient advised she has been taking her Lantus 60 mg in the morning and 60 in the p.m.. Taking Humalog 50 -3 times a day with meals. Patient has long-standing diabetes. Normally follows at [facility] endocrinology but is attempting transfer to endocrinology. Patient normally follows at for her RODRIGUEZ diagnosis. Patient has known history of diverticulitis and esophageal varices. Has had other past diagnosis DVT, pancreatitis, two episodes of kidney stones, arteriosclerosis,. Patient does smoke approximately a pack a day. She's had cholecystectomy hysterectomy and tonsillectomy, hernia repair and a breast reduction. No recent travel or specific ill contacts. Patient did get a flu vaccination this season. Has had recent episodes of constipation. Patient states the pain in her left lower abdomen that started approximately 2 days ago but is much worse this morning. Patient in the past follow locally with Dr. Edie Miller. No recent travel or specific ill contacts. No history of bad food intake. No history immunosuppression. She reports she has maintained a diabetic diet. Review of Systems Review of Systems Constitutional: Denies fever or chills [] Eyes: Denies change in visual acuity, redness, or eye pain [] HENT: Denies nasal congestion or sore throat [] Respiratory: Denies cough or shortness of breath [] Cardiovascular: No additional information not addressed in HPI [] GI: Complains of left lower abdominal pain, nausea,. Denies vomiting, bloody stools or diarrhea [] Has had constipation the last 2 days. : Denies dysuria or hematuria [] Musculoskeletal: Chronic mid back pain and joint pain [] Integument: Denies rash or skin lesions [] Neurologic: Denies headache, focal weakness or sensory changes [] Endocrine: Reports polyuria or polydipsia [] All other systems were reviewed and found to be within normal limits, except as documented in this note. Family History Family History Diabetes and hypertension Current Medications Current Medications See nursing for home medications Allergies Allergies Note patient's allergy to vancomycin is that she gets yeast infections?? Allergies Coded Allergies Type Severity Reaction Last Updated Verified levofloxacin Allergy Intermediate 10/06/18 Yes vancomycin Allergy Intermediate 03/18/19 Yes Physical Exam Physical Exam Constitutional: Moderate acute distress, non-toxic appearance. [] HENT: Normocephalic, atraumatic, bilateral external ears normal, oropharynx dry, no oral exudates, nose normal. [] Eyes: PERRLA, EOMI, conjunctiva normal, no discharge. [] Neck: Normal range of motion, no tenderness, supple, no stridor. [] Cardiovascular: Tachycardia Heart rate regular rhythm, no murmur [] Lungs & Thorax: Bilateral breath sounds equal apex with scattered wheezes auscultation []bilateral breast scars Abdomen: Bowel sounds normal, soft, left lower tenderness, , no pulsatile masses. [] Obese. Old surgery scars. Rebound to left lower quadrant. markedly distended. Skin: Warm, dry, no erythema, no rash. [] Back: Mid back tenderness, min. lt.CVA tenderness on percussion. Extremities: No tenderness, no cyanosis, no clubbing, ROM intact, no edema. [] Does have positive psoas sign on Lt. Unable to hop with out marked lower left abdomen pain. Neurologic: Alert and oriented X 3, moves extremities on request has distal sensory,, no focal deficits noted. [] Psychologic: Affect anxious, judgement normal, mood normal. [] EKG EKG [] Radiology/Procedures Radiology/Procedures [[address] [address] IMAGING REPORT Signed PATIENT: SANFORD RANDHAWA ACCOUNT: [id number] : 1980 LOCATION: ER AGE: 39 SEX: F EXAM STATUS: REG ER ORD. PHYSICIAN: RICKIE LAMB MD REASON: pain PROCEDURE: ACUTE ABDOMEN SERIES Examination: ACUTE ABDOMEN SERIES History: Pain Comparison/Correlation: None Findings: Frontal view of the chest was obtained. Supine and upright views of the abdomen were obtained. Frontal view chest was obtained. Heart size and pulmonary vasculature are normal. No infiltrate or pleural effusion. Supine and upright views of the abdomen were obtained. Right upper quadrant surgical clips are present. No extraluminal gas. Moderate quantity of stool is present in the colon. No obstruction. No suspicious abdominal calcifications. Calcific densities within soft tissues lateral to the right iliac bone. This is of indeterminate significance and may represent an injection granuloma. Impression: No infiltrate. No obstruction. Electronically signed by: Tay Pardo MD (11/29/2019 7:53 AM) [id number] DICTATED AND SIGNED BY: TAY PARDO MD DATE: 11/29/19 075 CC: RICKIE LAMB MD; EDIE MILLER [facility]- ~ ][place] [address] IMAGING REPORT Signed PATIENT: SANFORD RANDHAWA ACCOUNT: [id number] : 1980 LOCATION: ER AGE: 39 SEX: F EXAM STATUS: REG ER ORD. PHYSICIAN: RICKIE LAMB MD REASON: pain Lt. Lower- Hx diverticulitis - DRINKING [id number] PROCEDURE: CT ABD PELV W/ORAL&IV CONTRAST Examination: CT ABD PELV W/ORAL IV CONTRAST History: Left lower quadrant pain. History of diverticulitis. Comparison/Correlation: 11/06/2019 CT abdomen and pelvis without contrast Findings: Axial images of the abdomen and pelvis were obtained following IV and oral contrast. Oral contrast is only seen in the stomach and first portion of the duodenum. Visualized lung bases are clear. Fatty infiltration of the liver is present. Spleen is normal. Pancreas is normal. The radiohumeral joint is normal. Left adrenal myelolipoma is again seen.. Cholecystectomy is evident. Moderate quantity of stool is present throughout the colon. Appendix is normal. No enlarged abdominal or pelvic lymph nodes. Nonenlarged lymph nodes involving the retroperitoneum are present. The bladder is unremarkable. No loculated collections within the abdomen or pelvis. No abdominal wall defects. Diverticulosis of the colon that is mild. Hysterectomy noted. No ascites or pelvic free fluid. Bony structures are unremarkable. Impression: Diverticulosis. No acute inflammation. Left adrenal myelolipoma. Fatty infiltration of the liver. PQRS Compliance Statement: One or more of the following individualized dose reduction techniques were utilized for this examination: 1. Automated exposure control 2. Adjustment of the mA and/or kV according to patient size 3. Use of iterative reconstruction technique Electronically signed by: Tay Pardo MD (11/29/2019 8:02 AM) [email or web address] DICTATED AND SIGNED BY: TAY PARDO MD DATE: 11/29/19801 CC: RICKIE LAMB MD; EDIE MILLER ~ Course & Med Decision Making Course & Med Decision Making Pertinent Labs and Imaging studies reviewed. (See chart for details) Discussed presentation testing and treatment plan with Dr. Deleon- will admit at [facility] if not a surgical case. Discussed presentation and patient endorsed to Dr. Jarvis. He make disposition of pt. Impression: 1. Diabetes 2. History of hyperglycemia- gluc at home 400's 3. History of RODRIGUEZ 4. Left lower abdomen pain- hx of diverticulitis 5. Hematuria 6. Elevated lactic acid 3.4 7. Malnutrition albumin 3.1 8. Dehydration 9. Constipation 10. Morbid obesity [Minimal urine output after liter of fluid. Will admit for further hydration and evaluation to Dr. Deleon Service. No acute surgical process identified on CT or hydronephrosis.] Dragon Disclaimer Dragon Disclaimer This electronic medical record was generated, in whole or in part, using a voice recognition dictation system. Departure Departure: Disposition: HOME/RESIDENCE PRIOR TO ADM Condition: STABLE Referrals: EDIE MILLER (PCP) Katerine Disclaimer This chart was dictated in whole or in part using Voice Recognition software in a busy, high-work load, and often noisy Emergency Department environment. It may contain unintended and wholly unrecognized errors or omissions. Dragon Disclaimer This chart was dictated in whole or in part using Voice Recognition software in a busy, high-work load, and often noisy Emergency Department environment. It may contain unintended and wholly unrecognized errors or omissions. RICKIE LAMB MD Nov 29, 2019 05:32
[2019-11-29] MEDS ORDERED: IV RINGERS SOLUTION,LACTATED 1,000 ML IV SCH ×2 (06:30→13:30)
[2019-11-29] MEDS ORDERED: IOHEXOL 240 MG/ML 50ML VIAL. ONE (06:38)
[2019-11-29] MEDS ORDERED: FAMOTIDINE 20 MG/2 ML VIAL IVP ONE (06:45)
[2019-11-29] MEDS ORDERED: KETOROLAC 30 MG/ML VIAL. IVP ONE (06:45)
[2019-11-29] MEDS ORDERED: ONDANSETRON PF 4 MG/2 ML VIAL. IVP ONE (06:45)
[2019-11-29 06:49] LABS: BASO # 0.1 x10^3/uL (0.0-0.2); BASO % 1 % (0-3); EOS # 0.1 x10^3/uL (0.0-0.7); EOS % 1 % (0-3); HEMATOCRIT 37.2 % (36.0-47.0); HEMOGLOBIN 12.3 g/dL (12.0-15.5); LYMPH # 2.1 x10^3/uL (1.0-4.8); LYMPH % 25 % (24-48); MEAN CORPUSCULAR HEMOGLOBIN 28 pg (25-35); MEAN CORPUSCULAR HGB CONC 33 g/dL (31-37); MEAN CORPUSCULAR VOLUME 85 fL (79-100); MONO # 0.6 x10^3/uL (0.0-1.1); MONO % 7 % (0-9); NEUT # 5.6 x10^3uL (1.8-7.7); NEUT % 67 % (31-73); PLATELET COUNT 196 x10^3/uL (140-400); RED BLOOD COUNT 4.38 x10^6/uL (3.50-5.40); RED CELL DISTRIBUTION WIDTH 16.7 % (11.5-14.5); WHITE BLOOD COUNT 8.5 x10^3/uL (4.0-11.0)
[2019-11-29] MEDS ORDERED: IOHEXOL 300 MG/ML 75 ML VIAL. IV ONE (07:00)
[2019-11-29] MEDS ORDERED: CONTRAST GIVEN MC PRN (07:00)
--- NOTE | 2019-11-29 07:03 | EKG ---
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
[2019-11-29 07:12] LABS: AMPHETAMINE/METHAMPHETAMINE NEG (NEG); BARBITURATES NEG (NEG); BENZODIAZEPINES POS (NEG); CANNABINOIDS NEG (NEG); COCAINE NEG (NEG); METHADONE NEG (NEG); OPIATES NEG (NEG); PHENCYCLIDINE NEG (NEG)
[2019-11-29 07:20] LABS: BILIRUBIN,URINE NEG (NEG); CLARITY,URINE HAZY; COLOR,URINE YELLOW; GLUCOSE,URINE >=1000 mg/dL (NEG)
[2019-11-29 07:21] LABS: BACTERIA,URINE 0 /HPF (0-FEW); NITRITE,URINE NEG (NEG); RBC,URINE >40 /HPF (0-2); SQUAMOUS EPITHELIAL CELL,UR FEW /LPF; UROBILINOGEN,URINE 0.2 mg/dL (0.2 mg/dL); WBC,URINE OCC /HPF (0-4)
--- NOTE | 2019-11-29 07:56 | RAD ---
Examination: ACUTE ABDOMEN SERIES History: Pain Comparison/Correlation: None Findings: Frontal view of the chest was obtained. Supine and upright views of the abdomen were obtained. Frontal view chest was obtained. Heart size and pulmonary vasculature are normal. No infiltrate or pleural effusion. Supine and upright views of the abdomen were obtained. Right upper quadrant surgical clips are present. No extraluminal gas. Moderate quantity of stool is present in the colon. No obstruction. No suspicious abdominal calcifications. Calcific densities within soft tissues lateral to the right iliac bone. This is of indeterminate significance and may represent an injection granuloma. Impression: No infiltrate. No obstruction. Electronically signed by: Tay Leon MD (11/29/2019 7:53 AM) [email or web address]
[2019-11-29 08:03] LABS: CALCIUM 8.3 mg/dL (8.5-10.1); CREATININE 0.8 mg/dL (0.6-1.0); GFR 79.9; POTASSIUM 4.6 mmol/L (3.5-5.1)
--- NOTE | 2019-11-29 08:05 | RAD ---
Examination: CT ABD PELV W/ORAL IV CONTRAST History: Left lower quadrant pain. History of diverticulitis. Comparison/Correlation: 11/06/2019 CT abdomen and pelvis without contrast Findings: Axial images of the abdomen and pelvis were obtained following IV and oral contrast. Oral contrast is only seen in the stomach and first portion of the duodenum. Visualized lung bases are clear. Fatty infiltration of the liver is present. Spleen is normal. Pancreas is normal. The radiohumeral joint is normal. Left adrenal myelolipoma is again seen.. Cholecystectomy is evident. Moderate quantity of stool is present throughout the colon. Appendix is normal. No enlarged abdominal or pelvic lymph nodes. Nonenlarged lymph nodes involving the retroperitoneum are present. The bladder is unremarkable. No loculated collections within the abdomen or pelvis. No abdominal wall defects. Diverticulosis of the colon that is mild. Hysterectomy noted. No ascites or pelvic free fluid. Bony structures are unremarkable. Impression: Diverticulosis. No acute inflammation. Left adrenal myelolipoma. Fatty infiltration of the liver. PQRS Compliance Statement: One or more of the following individualized dose reduction techniques were utilized for this examination: 1. Automated exposure control 2. Adjustment of the mA and/or kV according to patient size 3. Use of iterative reconstruction technique Electronically signed by: Tay Leon MD (11/29/2019 8:02 AM) [facility]
[2019-11-29 08:09] LABS: ALBUMIN 3.1 g/dL (3.4-5.0); DIRECT BILIRUBIN 0.1 mg/dL (0.0-0.2); TOTAL BILIRUBIN 0.4 mg/dL (0.2-1.0); TOTAL PROTEIN 6.4 g/dL (6.4-8.2)
[2019-11-29] MEDS ORDERED: INSULIN REGULAR VIAL 100 UNIT in IV NORMAL SALINE 100ML 100 ML IV ONE (08:30)
[2019-11-29] MEDS ORDERED: MAGNESIUM HYDROXIDE 2,400 MG/30 ML ORAL.SUSP. PO ONE (08:30)
[2019-11-29] MEDS: IV RINGERS SOLUTION,LACTATED 1,000 ML IV ONE ×2 (08:30→08:49)
[2019-11-29] MEDS ORDERED: IV RINGERS SOLUTION,LACTATED 1,000 ML IV ONE (08:30)
[2019-11-29] MEDS ORDERED: ONDANSETRON PF 4 MG/2 ML VIAL. IV PRN (08:30)
[2019-11-29] MEDS ORDERED: ACETAMINOPHEN 325 MG TABLET PO PRN (08:30)
[2019-11-29] MEDS: MORPHINE SULFATE 10 MG/ML SYRINGE. SQ PRN ×4 (08:48→22:58)
[2019-11-29] MEDS ORDERED: ALPR2TAB2 PO (11:04)
[2019-11-29] MEDS ORDERED: DESV100T PO (11:04)
[2019-11-29] MEDS ORDERED: INSU100I13 SQ (11:04)
[2019-11-29] MEDS ORDERED: ALPRAZolam 0.5 MG TABLET PO PRN (11:30)
[2019-11-29] MEDS: INSULIN LISPRO 300 UNITS/3 ML VIAL. SQ SCH ×2 (11:51→16:40)
[2019-11-29] MEDS ORDERED: IPRATRPIUM/ALBUTEROL 0.5/2.5MG 3 ML NEBU. NEB SCH (12:00)
[2019-11-29] MEDS ORDERED: IPRATRPIUM/ALBUTEROL 0.5/2.5MG 3 ML NEBU. NEB PRN (13:30)
--- NOTE | 2019-11-29 13:36 | HP ---
ADMIT DATE: 11/29/2019 HISTORY OF PRESENT ILLNESS: The patient is a 39-year-old female patient who presented to the Emergency Room complaining that her sugars have been poorly controlled. She also complained of left lower quadrant abdominal pain for the last couple of days. She also stated that she has nausea, but no vomiting. She also had polyuria. Her blood sugar has been in the 400s. She stated that she has been taking her Lantus 6 units in the morning and 6 in the afternoon. She takes also Humalog 50 units 3 times a day with meals, apparently has longstanding diabetes, normally follows at [facility], but she has attempted to transfer her to Endocrinology. She also follows at [facility] for her nonalcoholic steatohepatitis diagnosis. She is known to have a history of diverticulitis and esophageal varices. Her other diagnoses include DVT, pancreatitis, 2 episodes of kidney stones and atherosclerosis. She smokes about a pack a day, although she states that she has been cutting to about 5 cigarettes a day. She was evaluated in the Emergency Room and her lab work showed that her blood sugar was 470, although her anion gap was only 7. She has also lactic acidosis with a serum lactic acid of 3.4. Her white cell count was normal and her prothrombin time, INR and aPTT are within normal range. Urinalysis was essentially unremarkable. Her toxic screen was positive for benzodiazepine. She had also a CT scan of the abdomen and pelvis showed that the visualized lung bases are clear. She has fatty infiltration of the liver. The patient was basically admitted again with poorly controlled type 2 diabetes, dehydration as well as constipation. The patient was admitted, started on IV fluid and to continue her insulin regimen as before. PAST MEDICAL HISTORY: Significant for type 2 diabetes as longstanding. She also has stage III nonalcoholic steatohepatitis and history of pancreatitis. PAST SURGICAL HISTORY: Significant for tonsillectomy, hysterectomy, cholecystectomy, hernia repair, breast reduction surgery. She also had surgery on both ankle joints and tightening her ligaments. ALLERGIES: SHE IS ALLERGIC TO LEVAQUIN AND VANCOMYCIN. FAMILY HISTORY: She has 3 sisters and 2 brothers. One sister has diabetes, the others are healthy. Father is alive at age of 62 and has diabetes and atrial fibrillation. Mother is alive at age of 60 and healthy. SOCIAL HISTORY: She is , has 2 daughters and 1 son. She smokes 3 cigarettes a day, does not drink alcohol or use recreational drugs. She is currently [id number] mom. MEDICATIONS: She is currently on following medications: She is on Pristiq extended release 100 mg once a day, alprazolam 2 mg 3 times a day, Protonix 40 mg daily and Lantus insulin 6 units subcutaneously twice a day and Humalog insulin 50 units 3 times a day with meals. REVIEW OF SYSTEMS: As per history of present illness. PHYSICAL EXAMINATION: GENERAL: On arrival to the Emergency Room, the patient looked well and was clearly in no apparent respiratory distress. No pallor, jaundice, cyanosis or thyromegaly. No jugular venous distention. No lower limb edema. VITAL SIGNS: Her heart rate was 99, blood pressure was 144/86, temperature was 97.9, respiratory rate was 18 and oxygen saturation was 98% on room air. HEAD, EYES, EARS, NOSE AND THROAT: Showed normocephalic, atraumatic. NECK: Supple. HEART: Showed normal first and second heart sounds. No gallop, rub or murmur. CHEST: Clear to auscultation. No crepitation or rhonchi. ABDOMEN: Distended, soft, nontender. NEUROLOGIC: She is awake, alert, responding appropriately. All cranial nerves intact. She moves extremities without difficulty. She ambulates without assistance or assistive devices. LABORATORY DATA: Her lab work showed a white cell count of 8500, hemoglobin 12, hematocrit 37, MCV 85 and platelet count of 196,000. Her chemistry showed serum sodium 139, potassium 4.6, chloride 105, bicarbonate 27, anion gap of 7, BUN 9, creatinine 0.8, estimated GFR was 80 mL per minute. Her glucose 147. Lactic acid was 3.4, calcium was 8.3. Total bilirubin, AST, ALT, alkaline phosphatase are normal. Total protein was 6.4, albumin 3.1. Her prothrombin time, INR and aPTT were normal. Urinalysis showed the urine was yellow, hazy with a pH of 5.5, specific gravity of 1.010. The urine was negative for protein, large amount of glucose, negative for ketones, large amount of blood, negative for nitrite and leukocyte esterase. There are more than 40 rbc's, occasional wbc's, and no bacteria. Her tox screen was positive for benzodiazepine. RADIOLOGICAL DATA: Her CT scan of the abdomen and pelvis with IV contrast showed that the patient has diverticulosis, no acute inflammation, left adrenal myelolipoma and fatty infiltration of the liver. ASSESSMENT: In summary, this is a 39-year-old female patient who yet again came with poorly controlled type 2 diabetes, but she is not in diabetic ketoacidosis, her anion gap is normal, history of nonalcoholic steatohepatitis, microscopic hematuria, lactic acidosis, malnutrition, dehydration, constipation and morbid obesity. PLAN: Continue with intravenous fluid. Resume all her medication. Continue to monitor her closely and decide further management accordingly. SOFIYA FERNANDES MD DR: NAOMIE/andrés JOB#: [id number] / [id number]
[2019-11-29] MEDS: INSULIN GLARGINE SYRINGE. SQ SCH (20:40)
[2019-11-29] MEDS ORDERED: NON FORMULARY ITEM (Insulin Glargine,Hum.rec.anlog (Lantus Solostar) 60 UNIT) SQ SCH (21:00)
[2019-11-30 01:49] VITALS: BP 116/69
[2019-11-30 04:04] VITALS: BP 114/83
[2019-11-30 06:09] VITALS: BP 151/81
[2019-11-30 07:17] LABS: HEMATOCRIT 38.2 % (36.0-47.0); HEMOGLOBIN 12.5 g/dL (12.0-15.5); RED BLOOD COUNT 4.48 x10^6/uL (3.50-5.40); RED CELL DISTRIBUTION WIDTH 16.9 % (11.5-14.5); WHITE BLOOD COUNT 10.4 x10^3/uL (4.0-11.0)
[2019-11-30] MEDS ORDERED: PANTOPRAZOLE 40 MG TABLET. PO SCH (07:30)
[2019-11-30 07:33] LABS: ALBUMIN 3.3 g/dL (3.4-5.0); C REACTIVE PROTEIN 22.6 mg/L (0-3.3); CALCIUM 8.3 mg/dL (8.5-10.1); CREATININE 0.7 mg/dL (0.6-1.0); GFR 93.2; POTASSIUM 4.5 mmol/L (3.5-5.1); TOTAL BILIRUBIN 0.5 mg/dL (0.2-1.0); TOTAL PROTEIN 6.7 g/dL (6.4-8.2)
[2019-11-30] MEDS: INSULIN LISPRO 300 UNITS/3 ML VIAL. SQ SCH ×2 (08:03→12:13)
[2019-11-30 08:21] VITALS: BP 94/54
[2019-11-30] MEDS: INSULIN GLARGINE SYRINGE. SQ SCH (08:32)
[2019-11-30] MEDS ORDERED: DESVENLAFAXINE 50 MG TAB.ER.24H. PO SCH (09:00)
[2019-11-30] MEDS ORDERED: NON FORMULARY ITEM (Desvenlafaxine Succinate (Pristiq Er) 1 TAB) PO SCH (09:00)
[2019-11-30 11:10] VITALS: BP 117/62
[2019-11-30] MEDS ORDERED: ONDANSETRON ODT 4 MG TAB.RAPDIS PO PRN (11:15)
[2019-11-30] MEDS: MORPHINE SULFATE 10 MG/ML SYRINGE. SQ PRN (11:15)
--- NOTE | 2019-11-30 16:40 | DS ---
DATE OF DISCHARGE: HOSPITAL COURSE: The patient is resting. She was admitted yesterday with poorly controlled diabetes with blood sugar in the 300 and 400. She was started on IV fluid and we continued on her usual medication. Her blood sugar has been well controlled and a decision was made to discharge her home to continue on all her home medications. PHYSICAL EXAMINATION: GENERAL: When I saw her this afternoon, she looked well and was clearly in no apparent respiratory distress. No pallor, jaundice, cyanosis or thyromegaly. No jugular venous distention or limb edema. VITAL SIGNS: Her heart rate was 105, blood pressure 117/62, temperature was 99, respiratory rate was 20, and oxygen saturation was 95%. HEAD, EYES, EARS, NOSE AND THROAT: Normocephalic, atraumatic. NECK: Supple. HEART: Normal first and second heart sounds. No gallop or murmur. CHEST: Clear to auscultation. No crepitation or rhonchi. ABDOMEN: Distended, soft, nontender. No guarding or rigidity. No organomegaly. All hernial orifices intact. Bowel sounds normal. NEUROLOGIC: She is awake, alert, responding appropriately. All cranial nerves are intact. EXTREMITIES: She moves extremities without difficulty. LABORATORY DATA: Her lab work showed her white cell count was 10,400, hemoglobin 12.5, hematocrit 38, MCV 85 and platelet count of 207,000. Her serum sodium was 139, potassium 4.5, chloride 104, bicarbonate 30, anion gap of 5, BUN 7, creatinine 0.7, estimated GFR was 93 mL per minute. Her glucose was 153, calcium was 8.3. Total bilirubin is 0.5. Her AST, ALT, alkaline phosphatase were markedly elevated. Her C-reactive protein was 22.6. Total protein was 6.7, albumin was 3.3. Her CT scan of the abdomen and pelvis showed that the visualized lung bases are clear. Fatty infiltration of the liver is present. Spleen is normal. Pancreas is normal. The radiohumeral joint is normal. Left adrenal myelolipoma is again seen. Cholecystectomy is present. Moderate quantity of stool is present throughout the colon. Appendix is normal. No enlarged abdominal or pelvic lymph nodes, nonenlarged lymph nodes involving the retroperitoneum are present. The bladder is unremarkable. No loculated collection within the abdomen or pelvis. No abdominal wall defects. Diverticulosis of the colon that is mild hysterectomy noted. No ascites or pelvic free fluid. Bony structures are unremarkable. IMPRESSION: Diverticulosis. No acute inflammation. Left adrenal myelolipoma fatty infiltration of the liver. DISCHARGE MEDICATIONS: The patient will be discharged home to continue on her Protonix 40 mg daily, alprazolam for Xanax 2 mg 3 times a day, Pristiq 100 mg daily and she is on Lantus insulin 60 units twice a day and Humalog insulin 50 units before meals. She was also discharged on hydrocodone/APAP 5/325 one tablet every 6 hours. FINAL DISCHARGE DIAGNOSES: Poorly controlled diabetes mellitus that is much improved, stage 3 nonalcoholic steatohepatitis, history of chronic pancreatitis. SOFIYA FERNANDES MD DR: NAOMIE/andrés JOB#: [id number] / [id number]
== END 2019-11-30 14:21 | disposition home or self-care (01) ==
LOC: ER 05:24 → ICU 09:33 → INTOOBSV 09:33
PROVIDERS: ADMIT Internal Medicine; ATTEND Internal Medicine
DX: E11.65 Type 2 diabetes mellitus with hyperglycemia (principal); K75.81 Nonalcoholic steatohepatitis (NASH); K86.1 Other chronic pancreatitis; R31.9 Hematuria, unspecified; R74.0 Nonspecific elevation of levels of transaminase and lactic acid dehydrogenase [LDH]; E46 Unspecified protein-calorie malnutrition; E86.0 Dehydration; K59.00 Constipation, unspecified; K21.9 Gastro-esophageal reflux disease without esophagitis; F17.210 Nicotine dependence, cigarettes, uncomplicated; E66.01 Morbid (severe) obesity due to excess calories; Z86.718 Personal history of other venous thrombosis and embolism; Z90.710 Acquired absence of both cervix and uterus; Z90.49 Acquired absence of other specified parts of digestive tract; Z87.442 Personal history of urinary calculi; Z79.4 Long term (current) use of insulin; Z68.1 Body mass index [BMI] 19.9 or less, adult; Z87.19 Personal history of other diseases of the digestive system; Z79.899 Other long term (current) drug therapy
CPT/HCPCS: 36415; 74022; 74177; 80048; 80053; 80061; 80076; 80307; 81001; 82550; 82947; 83605; 83690; 84443; 84484; 84702; 85025; 85027; 85610; 85651; 85730; 86140; 93005; 96361; 96372; 96374; 96375; 96376; 99285; G0378; J1815; J1885; J2270; J2405; J3490; J7120; Q0162; Q9967; G0379

== ENCOUNTER 2019-12-02 20:10 | Inpatient (IN) | payer BC ==
[~2019-12-02] VITALS: Ht 162.6 cm; Wt 90.0 kg
[~2019-12-02 20:10] MED LIST changes: +ALPR2TAB2 PO
[2019-12-02] MEDS ORDERED: IV NORMAL SALINE 1,000ML 1,000 ML IV ONE ×2 (20:30→22:00)
--- NOTE | 2019-12-02 20:43 | PHYS DOC ---
Past History Past Medical History: Anxiety, Constipation, Diverticulitis, Diabetes, DVT, GERD, Kidney Stones, Liver Disease, Pancreatitis, UTI, Other Additional Past Medical Histor: RODRIGUEZ, artherosclerosis Past Surgical History: Cholecystectomy, Hysterectomy, Tonsillectomy, Other Additional Past Surgical Histo: hernia and breast reduction Smoking: Cigarettes, Less than 1pk/day Alcohol Use: None Drug Use: None Adult General Chief Complaint Chief Complaint: HYPERGLYCEMIA HPI HPI 39-year-old female presents with hyperglycemia. Patient is a known diabetic on insulin. She normally has a pump, but was told to stop using her pump and go back to subcutaneous until some adjustments can be made by her commercial loan coordinator. She cannot get in to her oil dipper for a couple more months. Today she woke up her blood sugar was 360. The patient has not eaten all day. She is given herself a little bit of insulin but not very much. Her blood sugar still 400 and she is concerned. She feels generally fatigued. She denies vomiting or diarrhea. She has some mild nausea. She has had hyperglycemia with increased lactic acidosis in the past. Denies fever or chills. Review of Systems Review of Systems Constitutional: Denies fever or chills [] Eyes: Denies change in visual acuity, redness, or eye pain [] HENT: Denies nasal congestion or sore throat [] Respiratory: Denies cough or shortness of breath [] Cardiovascular: No additional information not addressed in HPI [] GI: LUQ abdominal pain, nausea. Denies vomiting, bloody stools or diarrhea [] : Denies dysuria or hematuria [] Musculoskeletal: Denies back pain or joint pain [] Integument: Denies rash or skin lesions [] Neurologic: Denies headache, focal weakness or sensory changes [] Endocrine: Denies polyuria or polydipsia [] All other systems were reviewed and found to be within normal limits, except as documented in this note. Current Medications Current Medications Current Medications Medications (Trade) Dose Ordered Sig/Yoko Start Time Stop Time Status Last Admin Dose Admin Insulin Human Regular (HumuLIN R VIAL) 10 unit 1X ONCE 12/02/19 20:45 12/02/19 20:46 Sodium Chloride 1,000 ml @ 1,000 mls/hr 1X ONCE 12/02/19 20:30 12/02/19 21:29 Allergies Allergies Allergies Coded Allergies Type Severity Reaction Last Updated Verified levofloxacin Allergy Intermediate 10/06/18 Yes vancomycin Allergy Intermediate 03/18/19 Yes Physical Exam Physical Exam Constitutional: Well developed, well nourished, no acute distress, non-toxic appearance. [] HENT: Normocephalic, atraumatic, bilateral external ears normal, oropharynx enriqu[address] st, no oral exudates, nose normal. [] Eyes: PERRLA, EOMI, conjunctiva normal, no discharge. [] Neck: Normal range of motion, no tenderness, supple, no stridor. [] Cardiovascular: Heart rate regular rhythm, no murmur [] Lungs & Thorax: Bilateral breath sounds clear to auscultation [] Abdomen: Bowel sounds normal, soft, mild LUQ tenderness, no masses, no pulsatile masses. [] Skin: Warm, dry, no erythema, no rash. [] Back: No tenderness, no CVA tenderness. [] Extremities: No tenderness, no cyanosis, no clubbing, ROM intact, no edema. [] Neurologic: Alert and oriented X 3, normal motor function, normal sensory function, no focal deficits noted. [] Psychologic: Affect normal, judgement normal, mood normal. [] Current Patient Data Vital Signs Vital Signs Date Time Temp Pulse Resp B/P (MAP) Pulse Ox O2 Delivery O2 Flow Rate FiO2 12/02/19 20:10 98.1 107 18 129/71 (90) 97 Room Air EKG EKG [] Radiology/Procedures Radiology/Procedures [] Impressions: CT abdomen pelvis with contrast dated 12/02/2019. Comparison made to 11/29/2019. CLINICAL INDICATION: Left upper quadrant pain. TECHNIQUE: Contiguous axial imaging the abdomen and pelvis performed after the administration of 75 cc Omnipaque 300. One or more of the following individualized dose reduction techniques were utilized for this examination: 1. Automated exposure control 2. Adjustment of the mA and/or kV according to patient size 3. Use of iterative reconstruction technique. FINDINGS: Limited images of lung bases are clear. Heart size within normal limits. No pleural or pericardial effusion. Liver is of mild low density suggesting fatty infiltration. No apparent mass. Biliary tree normal in caliber. The gallbladder is surgically absent. Spleen is normal in size. Pancreas, adrenal glands and kidneys are unremarkable. There is a fatty mass at the left adrenal gland measuring 2.7 cm in size, unchanged from prior study, consistent with myelolipoma. No hydronephrosis. Unopacified GI tract normal in caliber and contour. No focal bowel wall thickening. No inflammatory stranding in the mesentery. The appendix is normal in caliber. No ascites or lymphadenopathy. Images of pelvis show nondistended urinary bladder. The uterus is surgically absent. No free fluid or pelvic lymphadenopathy. There are a few scattered diverticula within the distal colon. Bone windows show no acute findings. IMPRESSION: 1. No acute abnormality of abdomen or pelvis. Normal appendix. 2. Mild fatty infiltration of the liver. 3. Status post cholecystectomy and hysterectomy. 4. Small left adrenal myelolipoma, unchanged. Electronically signed by: Farhan Gray MD (12/02/2019 11:10 PM) [id number] DICTATED AND SIGNED BY: FARHAN GRAY MD DATE: 12/02/192309 CC: JOSE MELENDEZ DO; PCP,NO ~ Course & Med Decision Making Course & Med Decision Making Pertinent Labs and Imaging studies reviewed. (See chart for details) The patient's initial blood sugar was 463. Given her a liter normal saline and 10 units of regular insulin by IV. Repeat blood sugars in the 360s. I ordered a second liter. Her lactic acid 3.9. Her anion gap is normal. Patient continues to have some abdominal pain. She was given Toradol. I will also give her morphine and do a CT of the abdomen and pelvis. This is pending. CT of the abdomen and pelvis is negative for acute findings. I have ordered an insulin drip for the patient. She has agreed to admission. I spoke with Dr. Deleon and he has accepted her for admission. 48 minutes of critical care time was spent on this patient exclusive of procedures. [] Dragon Disclaimer Dragon Disclaimer This electronic medical record was generated, in whole or in part, using a voice recognition dictation system. Departure Departure: Impression: Primary Impression: Poorly controlled type 2 diabetes mellitus Additional Impression: Abdominal pain Disposition: ADMITTED INPATIENT Condition: GUARDED Referrals: PCP,NO (PCP) Problem Qualifiers Additional Impression: Abdominal pain Abdominal location: left upper quadrant Qualified Codes: R10.12 - Left upper quadrant pain JOSE MELENDEZ DO Dec 02, 2019 20:43
[2019-12-02] MEDS ORDERED: INSULIN REGULAR 100 UNIT/ML 3ML VIAL. IV ONE (20:45)
[2019-12-02 21:09] LABS: BASO # 0.1 x10^3/uL (0.0-0.2); BASO % 1 % (0-3); EOS # 0.1 x10^3/uL (0.0-0.7); EOS % 1 % (0-3); HEMATOCRIT 38.9 % (36.0-47.0); HEMOGLOBIN 13.1 g/dL (12.0-15.5); LYMPH # 1.9 x10^3/uL (1.0-4.8); LYMPH % 21 % (24-48); MEAN CORPUSCULAR HEMOGLOBIN 29 pg (25-35); MEAN CORPUSCULAR HGB CONC 34 g/dL (31-37); MEAN CORPUSCULAR VOLUME 85 fL (79-100); MONO # 0.6 x10^3/uL (0.0-1.1); MONO % 7 % (0-9); NEUT # 6.4 x10^3uL (1.8-7.7); NEUT % 71 % (31-73); PLATELET COUNT 217 x10^3/uL (140-400); RED BLOOD COUNT 4.56 x10^6/uL (3.50-5.40)
[2019-12-02] MEDS ORDERED: KETOROLAC 30 MG/ML VIAL. IVP ONE (21:15)
[2019-12-02] MEDS ORDERED: ONDANSETRON PF 4 MG/2 ML VIAL. IVP ONE (21:15)
[2019-12-02 21:16] LABS: BILIRUBIN,URINE NEG (NEG); CLARITY,URINE HAZY; COLOR,URINE YELLOW; GLUCOSE,URINE >=1000 mg/dL (NEG); NITRITE,URINE NEG (NEG); UROBILINOGEN,URINE 0.2 mg/dL (0.2 mg/dL)
[2019-12-02 21:17] LABS: BACTERIA,URINE FEW /HPF (0-FEW); SQUAMOUS EPITHELIAL CELL,UR FEW /LPF
[2019-12-02 21:19] LABS: CALCIUM 8.9 mg/dL (8.5-10.1); GFR 61.7; POTASSIUM 3.7 mmol/L (3.5-5.1)
[2019-12-02 21:24] LABS: ALBUMIN 3.5 g/dL (3.4-5.0); ALBUMIN/GLOBULIN RATIO 0.9 (1.0-1.7); TOTAL BILIRUBIN 0.3 mg/dL (0.2-1.0); TOTAL PROTEIN 7.5 g/dL (6.4-8.2)
[2019-12-02] MEDS ORDERED: MORPHINE SULFATE 2 MG/ML DISP.SYRIN. IV ONE (22:15)
[2019-12-02] MEDS ORDERED: IOHEXOL 300 MG/ML 75 ML VIAL. IV ONE (23:00)
[2019-12-02] MEDS ORDERED: CONTRAST GIVEN MC PRN (23:00)
--- NOTE | 2019-12-02 23:13 | RAD ---
CT abdomen pelvis with contrast dated 12/02/2019. Comparison made to 11/29/2019. CLINICAL INDICATION: Left upper quadrant pain. TECHNIQUE: Contiguous axial imaging the abdomen and pelvis performed after the administration of 75 cc Omnipaque 300. One or more of the following individualized dose reduction techniques were utilized for this examination: 1. Automated exposure control 2. Adjustment of the mA and/or kV according to patient size 3. Use of iterative reconstruction technique. FINDINGS: Limited images of lung bases are clear. Heart size within normal limits. No pleural or pericardial effusion. Liver is of mild low density suggesting fatty infiltration. No apparent mass. Biliary tree normal in caliber. The gallbladder is surgically absent. Spleen is normal in size. Pancreas, adrenal glands and kidneys are unremarkable. There is a fatty mass at the left adrenal gland measuring 2.7 cm in size, unchanged from prior study, consistent with myelolipoma. No hydronephrosis. Unopacified GI tract normal in caliber and contour. No focal bowel wall thickening. No inflammatory stranding in the mesentery. The appendix is normal in caliber. No ascites or lymphadenopathy. Images of pelvis show nondistended urinary bladder. The uterus is surgically absent. No free fluid or pelvic lymphadenopathy. There are a few scattered diverticula within the distal colon. Bone windows show no acute findings. IMPRESSION: 1. No acute abnormality of abdomen or pelvis. Normal appendix. 2. Mild fatty infiltration of the liver. 3. Status post cholecystectomy and hysterectomy. 4. Small left adrenal myelolipoma, unchanged. Electronically signed by: Farhan Gray MD (12/02/2019 11:10 PM) [id number]
[2019-12-02] MEDS ORDERED: ONDANSETRON PF 4 MG/2 ML VIAL. IV PRN (23:15)
[2019-12-02] MEDS ORDERED: MORPHINE SULFATE 2 MG/ML DISP.SYRIN. IV PRN (23:15)
[2019-12-02] MEDS ORDERED: DEXTROSE 50% 25 GM / 50ML DISP.SYRIN. IV PRN (23:15)
[2019-12-02] MEDS ORDERED: MORPHINE SULFATE 4 MG/ML DISP.SYRIN. IV ONE (23:30)
[2019-12-02] MEDS ORDERED: INSULIN REGULAR VIAL 100 UNIT in IV NORMAL SALINE 100ML 100 ML IV PRN (23:30)
[2019-12-02] MEDS ORDERED: IV NORMAL SALINE 100ML 100 ML ONE (23:33)
[2019-12-02 23:43] VITALS: BP 111/63
[2019-12-03 05:28] VITALS: BP 95/56
[2019-12-03] MEDS ORDERED: HYDROcodone/APAP 5/325MG 1 TAB TABLET PO PRN (07:30)
[2019-12-03] MEDS ORDERED: NON FORMULARY ITEM (Alprazolam (Xanax) 1 TAB) PO SCH (07:30)
[2019-12-03] MEDS ORDERED: PANTOPRAZOLE 40 MG TABLET. PO SCH (07:30)
[2019-12-03] MEDS ORDERED: ALPRAZolam 0.5 MG TABLET PO PRN (07:45)
[2019-12-03] MEDS ORDERED: INSULIN LISPRO 300 UNITS/3 ML VIAL. SQ SCH ×2 (08:00→13:15)
[2019-12-03] MEDS ORDERED: INSULIN LISPRO 50 UNIT SQ SCH (08:00)
[2019-12-03] MEDS ORDERED: NON FORMULARY ITEM (Desvenlafaxine Succinate (Pristiq Er) 1 TAB) PO SCH (09:00)
[2019-12-03] MEDS ORDERED: NON FORMULARY ITEM (Insulin Glargine,Hum.rec.anlog (Lantus Solostar) 60 UNIT) SQ SCH (09:00)
[2019-12-03] MEDS ORDERED: INSULIN GLARGINE SYRINGE. SQ SCH (09:00)
[2019-12-03] MEDS ORDERED: DESVENLAFAXINE 50 MG TAB.ER.24H. PO SCH (09:00)
[2019-12-03 11:25] VITALS: BP 113/66
--- NOTE | 2019-12-03 13:48 | HP ---
ADMIT DATE: 12/02/2019 HISTORY OF PRESENT ILLNESS: The patient is a 39-year-old female patient who was discharged from this hospital only recently, specifically on Tuesday11/30/2019 only to come back again on Tuesday with complaint of hyperglycemia. She apparently was on insulin infusion pump, but was told to stop using her pump and go back to subcutaneous and there is some adjustment can be made by her black puller. She cannot get into her black puller for a couple of more months. She woke up with a blood sugar of 360. The patient has not eaten all day. She is giving herself little bit of insulin, but not very much. Her blood sugar was still 400. By the time she has arrived here, she is complaining of generalized fatigue and vomiting. Denied any vomiting or diarrhea. She has some mild nausea. She was evaluated in the Emergency Room and her blood sugar on arrival was 463. She has lactic acidosis with lactic acid 3.9; however, her anion gap was only 14, which is well within normal range. She was started on insulin drip and was admitted to continue with IV fluids and insulin drip. PAST MEDICAL HISTORY: Significant for type 2 diabetes, longstanding. She also has stage 3 nonalcoholic steatohepatitis and history of pancreatitis. PAST SURGICAL HISTORY: Significant for tonsillectomy, hysterectomy, cholecystectomy, hernia repair, breast reduction surgery. She also had surgery on both ankle joints to tighten her ligaments. ALLERGIES: SHE IS ALLERGIC TO LEVAQUIN AND VANCOMYCIN. FAMILY HISTORY: She has 3 sisters and 2 brothers. One sister has diabetes. The others are healthy. Father is alive at the age of 62 and has diabetes and atrial fibrillation. Mother alive at the age of 60 and healthy. SOCIAL HISTORY: She is , has 2 daughters and 1 son. She smokes 3 cigarettes a day, does not drink alcohol or use any recreational drugs. She is currently [id number] mom. MEDICATIONS: She is currently on following medications: She is on Pristiq extended release 100 mg once a day, alprazolam 2 mg 3 times a day, Protonix 40 mg daily, Lantus insulin 60 units subcutaneously twice a day and Humalog insulin 50 units 3 times a day with meals. REVIEW OF SYSTEMS: As per history of present illness. PHYSICAL EXAMINATION: GENERAL: On arrival to the Emergency Room, the patient looked well and was clearly in no apparent respiratory distress. No pallor, jaundice, cyanosis, or thyromegaly. No jugular venous distension. No limb edema. VITAL SIGNS: Her heart rate was 107, blood pressure was 129/71, temperature was 98.1, respiratory rate was 18 and oxygen saturation was 97%. HEAD, EYES, EARS, NOSE AND THROAT: Showed normocephalic, atraumatic. NECK: Supple. HEART: Showed normal first and second heart sounds. No gallop or murmur. CHEST: Clear to auscultation. No crepitation or rhonchi. ABDOMEN: Distended, soft, nontender. No guarding or rigidity. No organomegaly. All hernial orifice intact. Bowel sounds normal. NEUROLOGIC: She was awake, alert, responding appropriately. All cranial nerves intact. EXTREMITIES: She moves extremities without difficulty. LABORATORY DATA: Her lab work on arrival showed a white cell count 9000, hemoglobin 13, hematocrit 39, MCV 85 and platelet count 217,000. Her chemistry showed a serum sodium 139, potassium 3.7, chloride 101, bicarbonate 24, anion gap of 14, BUN 5, creatinine 1, estimated GFR was 61 mL per minute. Her glucose was 463. Lactic acid was 3.9. Her calcium was 8.9. Total bilirubin and alkaline phosphatase were normal. AST, ALT is slightly elevated. Total protein 7.5, albumin 3.5. Serum lipase was 105. Urinalysis showed the urine was yellow, hazy with a pH of 6, specific gravity of 1.015. The urine was negative for protein. There was large amount of glucose, negative for ketones, trace of blood, negative for nitrite and leukocyte esterase. There are 3-4 rbc's, 1-4 wbc's and very few bacteria. Has had again another CT scan of the abdomen and pelvis with IV contrast, showed that there is no acute abnormality of the abdomen and pelvis, normal appendix, mild fatty infiltration of the liver, status post cholecystectomy and hysterectomy. Small left adrenal myelolipoma unchanged. ASSESSMENT AND PLAN: The patient was admitted and started on insulin drip as well as IV fluid. We will continue to monitor her blood sugar and adjust insulin as needed. SOFIYA FERNANDES MD DR: NAOMIE/andrés JOB#: [id number] / [id number]
--- NOTE | 2019-12-03 21:51 | PN ---
DATE: 12/03/2019 SUBJECTIVE: The patient was admitted yesterday with hyperglycemia and probably mild diabetic ketoacidosis and lactic acidosis. She was started on IV fluid and insulin drip and her blood sugar this morning was down to 160 and apparently, a decision was made to switch her back to her normal schedule. She was given 60 units of Lantus insulin, 50 units of Humalog insulin, her blood sugar before meals was 65, before lunch was 65 mg per deciliter. OBJECTIVE: GENERAL: When I examined her this afternoon, she looked well and was clearly in no apparent respiratory distress. VITAL SIGNS: Her heart rate was 61, blood pressure 113/66, temperature 97.9, respiratory rate was 16, and oxygen saturation was 95%. HEAD, EYES, EARS, NOSE AND THROAT: The rest of clinical examination is stable. LABORATORY DATA: Her lab work this morning showed her lactic acid was down to 2.1. Blood sugar was 65 mg per deciliter before lunch and we cut down her Humalog to 25 units. ASSESSMENT AND PLAN: The patient was encouraged to have the primary care physician to monitor her blood sugar and adjust insulin as needed. She was originally seen by the airplane rigger at [facility], but she follows at [facility] for her nonalcoholic steatohepatitis. She is hoping to have an earlier appointment with the airplane rigger at [facility]. In any case, we basically educated the patient that she should perhaps cut her insulin if need be or we might have to arrange for her to have insulin sliding scale to decide how much insulin she needs to take. PLAN: To continue with current plan of management and monitor her blood sugar and see how she does tomorrow morning. SOFIYA FERNANDES MD DR: NAOMIE/andrés JOB#: [id number] / [id number]
== END 2019-12-03 13:50 | disposition home or self-care (01) | DRG 639 ==
LOC: ER 20:10 → 1 SOUTH 23:00
PROVIDERS: ADMIT Internal Medicine; ATTEND Internal Medicine
DX: E11.10 Type 2 diabetes mellitus with ketoacidosis without coma (principal); K75.81 Nonalcoholic steatohepatitis (NASH); F17.210 Nicotine dependence, cigarettes, uncomplicated; Z79.4 Long term (current) use of insulin; Z83.3 Family history of diabetes mellitus; Z87.442 Personal history of urinary calculi; Z90.49 Acquired absence of other specified parts of digestive tract; Z90.710 Acquired absence of both cervix and uterus; Z96.41 Presence of insulin pump (external) (internal); F41.9 Anxiety disorder, unspecified; K21.9 Gastro-esophageal reflux disease without esophagitis; Z86.718 Personal history of other venous thrombosis and embolism; Z79.01 Long term (current) use of anticoagulants
CPT/HCPCS: 36415; 74177; 80053; 81001; 82947; 83605; 83690; 85025; J1815; J1885; J2270; J2405; Q9967; J7030

== ENCOUNTER 2019-12-12 04:22 | Observation (INO) | payer BC ==
[~2019-12-12] VITALS: Ht 162.6 cm; Wt 91.0 kg
[2019-12-12] MEDS ORDERED: IV NORMAL SALINE 1,000ML 1,000 ML IV ONE ×3 (04:45→08:45)
--- NOTE | 2019-12-12 04:48 | PHYS DOC ---
Past History Past Medical History: Anxiety, Constipation, Diverticulitis, Diabetes, DVT, GERD, Kidney Stones, Liver Disease, Pancreatitis, UTI, Other Additional Past Medical Histor: RODRIGUEZ, artherosclerosis Past Surgical History: Cholecystectomy, Hysterectomy, Tonsillectomy, Other Additional Past Surgical Histo: hernia and breast reduction Smoking: Cigarettes, Less than 1pk/day Alcohol Use: None Drug Use: None Adult General Chief Complaint Chief Complaint: BLOOD SUGAR PROBLEM HPI HPI 39-year-old female presents with elevated blood sugar. Patient is well-known to the emergency room with hyperglycemia. She will go up and was feeling generally ill. She checked her blood sugar was over 600. She took an additional 10 units of her short acting insulin. The patient takes 120 units of long-acting as well as sliding scale between 30 and 50 units with meals. She tells me that she has hardly been below 300 at all lately. She has an appointment for diabetes management at the [facility] later this month. 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 The patient has had lactic acidosis with previous visits. She denies vomiting, fever, or chills. Review of Systems Review of Systems Constitutional: Elevated blood sugar. Denies fever or chills [] Eyes: Denies change in visual acuity, redness, or eye pain [] HENT: Denies nasal congestion or sore throat [] Respiratory: Denies cough or shortness of breath [] Cardiovascular: No additional information not addressed in HPI [] GI: Nausea. Denies abdominal pain, vomiting, bloody stools or diarrhea [] : Denies dysuria or hematuria [] Musculoskeletal: Denies back pain or joint pain [] Integument: Denies rash or skin lesions [] Neurologic: Denies headache, focal weakness or sensory changes [] Endocrine: Denies polyuria or polydipsia [] All other systems were reviewed and found to be within normal limits, except as documented in this note. Allergies Allergies Allergies Coded Allergies Type Severity Reaction Last Updated Verified levofloxacin Allergy Intermediate 10/06/18 Yes vancomycin Allergy Intermediate 03/18/19 Yes Physical Exam Physical Exam Constitutional: Well developed, obese, well nourished, no acute distress, non- toxic appearance. [] HENT: Normocephalic, atraumatic, bilateral external ears normal, oropharynx moist, no oral exudates, nose normal. [] Eyes: PERRLA, EOMI, conjunctiva normal, no discharge. [] Neck: Normal range of motion, no tenderness, supple, no stridor. [] Cardiovascular: Heart rate 110, regular rhythm, no murmur [] Lungs & Thorax: Bilateral breath sounds clear to auscultation [] Abdomen: Bowel sounds normal, soft, no tenderness, no masses, no pulsatile masses. [] Skin: Warm, dry, no erythema, no rash. [] Back: No tenderness, no CVA tenderness. [] Extremities: No tenderness, no cyanosis, no clubbing, ROM intact, no edema. [] Neurologic: Alert and oriented X 3, normal motor function, normal sensory function, no focal deficits noted. [] Psychologic: Affect normal, judgement normal, mood normal. [] Current Patient Data Vital Signs Vital Signs Date Time Temp Pulse Resp B/P (MAP) Pulse Ox O2 Delivery O2 Flow Rate FiO2 12/12/19 04:25 98.0 107 20 147/85 (105) 95 Room Air Lab Results Laboratory Tests Test 12/12/19 04:42 Glucose (Fingerstick) 455 mg/dL (70-99) H EKG EKG [] Radiology/Procedures Radiology/Procedures [] Course & Med Decision Making Course & Med Decision Making Pertinent Labs and Imaging studies reviewed. (See chart for details) On arrival patient's blood sugar was over 450. We gave her 10 units of insulin and a liter of normal saline. Repeat blood sugar was still over 400.. Her lactic acid is 3.3. I ordered a second liter of normal saline drip. Interestingly the pharmacy called and told us that the patient just Medications couple hours ago at [facility]. We called over there and discovered that she was in the emergency room for the 2 hours just prior to arrival here. She was found to have negative acetone and she was discharged with a blood sugar over 300. She did not tell us about this visit at all. It raises the question as to what the patient was doing between leaving that facility and coming here. With her blood sugar increasing, I wonder if she ate something because her blood sugar to go back up. Because of elevated lactic acid, I will admit her to the hospital. I discussed the patient with Dr. Deleon and he has accepted her for observation admission as she is unlikely to need to stay here for 2 nights. [] Dragon Disclaimer Dragon Disclaimer This electronic medical record was generated, in whole or in part, using a voice recognition dictation system. Departure Departure: Impression: Primary Impression: Poorly controlled type 2 diabetes mellitus Additional Impression: Lactic acidosis due to diabetes mellitus Disposition: ADMITTED INPATIENT Admitting Physician: Kirsten Deleon Condition: STABLE Referrals: PCP,NO (PCP) Problem Qualifiers JOSE MELENDEZ DO Dec 12, 2019 04:48
[2019-12-12 05:00] LABS: BASO # 0.1 x10^3/uL (0.0-0.2); BASO % 1 % (0-3); EOS # 0.1 x10^3/uL (0.0-0.7); EOS % 1 % (0-3); HEMOGLOBIN 12.5 g/dL (12.0-15.5); LYMPH % 25 % (24-48); MEAN CORPUSCULAR HEMOGLOBIN 28 pg (25-35); MEAN CORPUSCULAR HGB CONC 33 g/dL (31-37); MEAN CORPUSCULAR VOLUME 85 fL (79-100); MONO # 0.6 x10^3/uL (0.0-1.1); MONO % 7 % (0-9); NEUT # 5.1 x10^3uL (1.8-7.7); NEUT % 65 % (31-73); PLATELET COUNT 205 x10^3/uL (140-400); RED BLOOD COUNT 4.48 x10^6/uL (3.50-5.40); RED CELL DISTRIBUTION WIDTH 16.7 % (11.5-14.5); WHITE BLOOD COUNT 7.9 x10^3/uL (4.0-11.0)
[2019-12-12] MEDS ORDERED: INSULIN REGULAR 100 UNIT/ML 3ML VIAL. IV ONE (05:00)
[2019-12-12 05:07] LABS: CALCIUM 8.9 mg/dL (8.5-10.1); CREATININE 0.8 mg/dL (0.6-1.0); GFR 79.9; POTASSIUM 3.9 mmol/L (3.5-5.1)
[2019-12-12 05:13] LABS: ALBUMIN 3.4 g/dL (3.4-5.0); TOTAL BILIRUBIN 0.3 mg/dL (0.2-1.0); TOTAL PROTEIN 6.9 g/dL (6.4-8.2)
[2019-12-12] MEDS ORDERED: ONDANSETRON PF 4 MG/2 ML VIAL. ONE (05:24)
[2019-12-12] MEDS ORDERED: KETOROLAC 30 MG/ML VIAL. ONE (05:24)
[2019-12-12] MEDS ORDERED: INSULIN REGULAR VIAL 100 UNIT in IV NORMAL SALINE 100ML 100 ML IV PRN (06:00)
[2019-12-12] MEDS ORDERED: KETOROLAC 30 MG/ML VIAL. IVP ONE (06:00)
[2019-12-12] MEDS ORDERED: ONDANSETRON PF 4 MG/2 ML VIAL. IV PRN (06:00)
[2019-12-12] MEDS ORDERED: DEXTROSE 50% 25 GM / 50ML DISP.SYRIN. IV PRN (06:00)
[2019-12-12] MEDS ORDERED: ONDANSETRON PF 4 MG/2 ML VIAL. IVP ONE (06:00)
[2019-12-12] MEDS ORDERED: IV NORMAL SALINE 100ML 100 ML ONE (06:23)
[2019-12-12 08:00] VITALS: BP 123/62
[2019-12-12] MEDS ORDERED: HYDROcodone/APAP 5/325MG 1 TAB TABLET PO PRN (08:15)
[2019-12-12] MEDS ORDERED: MORPHINE SULFATE 4 MG/ML DISP.SYRIN. IV PRN (08:15)
[2019-12-12] MEDS ORDERED: KETOROLAC 30 MG/ML VIAL. IVP PRN (08:15)
[2019-12-12 08:23] LABS: AMYLASE 15 U/L (25-115); LIPASE 127 U/L (73-393)
[2019-12-12 09:00] VITALS: BP 94/45
--- NOTE | 2019-12-12 12:26 | SSS ---
ADMIT DATE: 12/12/2019 HISTORY OF PRESENT ILLNESS: The patient was basically initially seen at [facility] on 12/12/2019 at around 1:27 complaining of hyperglycemia. She apparently was discharged 12/11/2019 from [facility] on 12/11/2019 and she came back within the next day with a complaint of hyperglycemia. She was discharged with orders to continue on 65 units of Lantus subcutaneously twice a day and 38 units subcutaneously 3 times a day with meals and she basically went back again within less than 24 hours and she was evaluated by ER physician Dr. Camargo. At that time, her blood sugar was 449 mg/dL. She apparently was given 10 units of insulin, a liter of fluid and she was discharged home and after she received IV fluid, there is no evidence of DKA, the patient was discharged home and basically from there she left the Emergency Room of [facility] and ended up at the Emergency Room of [facility] with the same complaint. Her lactic acid was slightly elevated at 3.3. She has also received IV fluid and probably total of 2 liters of normal saline, was started on insulin drip and was admitted to the ICU and I was trying to understand how the patient used her insulin in house when she checked her blood sugar and whether her insulin has and basically, the patient became very angry and pulled her IV line and decided to leave against medical advice. Looking at her number of admissions, the patient was seen at [facility] at least in this year 2019 on 10/31/2019, 11/05/2019, 11/14/2019, 11/21/2019, 11/29/2019 12/02/2019 and 12/12/2019. At the same time, she was seen at [facility] on 10/23/2019, 11/18/2019, 11/26/2019, 12/09/2019 and 12/12/2019. I explained to the patient that I am just trying to find out why she has these frequent visits and maybe there is something that she is doing that we can fix and try to adjust the timing of her blood sugar control and that she should not immediately come to the Emergency Room and wait for the blood sugar to come down. She became extremely angry, pulled her IV line and left against medical advice. SOFIYA FERNANDES MD DR: Andres JOB#: [id number] / [id number]
== END 2019-12-12 11:30 | disposition left against medical advice (07) ==
LOC: ER 04:22 → INTOOBSV 05:30 → 1 SOUTH 05:30 → ICU 07:50
PROVIDERS: ADMIT Internal Medicine; ATTEND Internal Medicine
DX: E11.65 Type 2 diabetes mellitus with hyperglycemia (principal); E87.2 Acidosis; K21.9 Gastro-esophageal reflux disease without esophagitis; F41.9 Anxiety disorder, unspecified; F17.210 Nicotine dependence, cigarettes, uncomplicated; Z90.710 Acquired absence of both cervix and uterus; Z87.442 Personal history of urinary calculi
CPT/HCPCS: 36415; 80053; 82150; 82947; 83605; 83690; 85025; 96361; 96365; 96366; 96375; 96376; G0378; G0379; J1815; J1885; J2405; 99284-25; J7030

== ENCOUNTER 2019-12-27 20:45 | Emergency (ER) | payer BC ==
[~2019-12-27] VITALS: Ht 162.6 cm; Wt 91.0 kg
[2019-12-27 20:45] VITALS: BP 107/61
--- NOTE | 2019-12-27 20:48 | PHYS DOC ---
Past History Past Medical History: Anxiety, Bipolar, Bronchitis, Constipation, Diverticulitis, Diabetes, DVT, GERD, Kidney Stones, Liver Disease, Pancreatitis, UTI, Other Additional Past Medical Histor: RODRIGUEZ, artherosclerosis Past Surgical History: Cholecystectomy, Hysterectomy, Tonsillectomy, Other Additional Past Surgical Histo: hernia and breast reduction Smoking: Cigarettes, Less than 1pk/day Alcohol Use: None Drug Use: None Adult General Chief Complaint Chief Complaint: ".. I feel ... Like I got hit a truck.. had a fever for last six days... coughing and wheezing.. My sugars have been okay.. I am still smoking.. and I got a flu vaccination in 2019 and again in 2019... HPI HPI Patient is a 39 year old female who presents with above hx and complaints flu symptoms x 6 days. Patient reports history of fever at home. No recent travel outside the [facility] for [facility]. Recently admission at a psych hospital and was discharged Tuesday. Patient states her psych. complaints are currently stable. Patient does smoke. Patient denies any history of immunosuppression. Did eat just prior to her arrival. Does have a history of diabetes and hypertension. Flu vaccinations 2 this season. . Normally follows with . Review of Systems Review of Systems Constitutional: Complaints of fever or chills [] Eyes: Denies change in visual acuity, redness, or eye pain [] HENT: Complaints of nasal congestion Respiratory: Denies cough or shortness of breath [] Cardiovascular: No additional information not addressed in HPI [] GI: Denies abdominal pain, nausea, vomiting, bloody stools or diarrhea [] : Denies dysuria or hematuria [] Musculoskeletal: Complaints of generalized myalgia and arthralgia Integument: Denies rash or skin lesions [] Neurologic: Denies headache, focal weakness or sensory changes [] Endocrine: Complaints polyuria or polydipsia [] All other systems were reviewed and found to be within normal limits, except as documented in this note. Family History Family History Diabetes and hypertension Current Medications Current Medications See nursing for home meds Allergies Allergies Allergies Coded Allergies Type Severity Reaction Last Updated Verified levofloxacin Allergy Intermediate 10/06/18 Yes vancomycin Allergy Intermediate 03/18/19 Yes Physical Exam Physical Exam Constitutional: , no acute distress, non-toxic appearance. [] HENT: Normocephalic, atraumatic, bilateral external ears normal, oropharynx moist, postnasal drainage no oral exudates, nose swollen turbinates and clear rhinorrhea Eyes: PERRLA, EOMI, conjunctiva normal, no discharge. [] Neck: Normal range of motion, no tenderness, supple, no stridor. [] Cardiovascular:Heart rate regular rhythm, no murmur [] Lungs & Thorax: Bilateral breath sounds equal at apexes with only a few scattered wheezes on auscultation [] Abdomen: Bowel sounds normal, soft, no tenderness, no masses, no pulsatile masses. Obese. Old surgery scars. Skin: Warm, dry, no erythema, no rash. [] Back: No tenderness, no CVA tenderness. [] Extremities: No tenderness, no cyanosis, no clubbing, ROM intact, trace ankle edema. [No cording appreciated Neurologic: Alert and oriented X 3, normal motor function, normal sensory function, no focal deficits noted. [] Psychologic: Affect anxious, judgement normal, mood normal. [] EKG EKG [] Radiology/Procedures Radiology/Procedures [] Course & Med Decision Making Course & Med Decision Making Pertinent Labs and Imaging studies reviewed. (See chart for details) Half way through patient's evaluation patient to told nurse she had to leave and go home. Patient declined to wait to talk to me or complete evaluation prior to leaving AMA, Patient told to return anytime as needed. Impression- 1. Viral Syndrome 2. Bronchitis 3. DM 4. Tobacco Abuse 5. Hx. HTN 6. Anxiety Discorder 7. Hx. of schizoaffective disorder- Bipolar characteristics [] Dragon Disclaimer Dragon Disclaimer This electronic medical record was generated, in whole or in part, using a voice recognition dictation system. Departure Departure: Disposition: HOME/RESIDENCE PRIOR TO ADM Condition: STABLE Referrals: LATHA DIA PA-C (PCP) Katerine Disclaimer This chart was dictated in whole or in part using Voice Recognition software in a busy, high-work load, and often noisy Emergency Department environment. It may contain unintended and wholly unrecognized errors or omissions. RICKIE LAMB MD Dec 27, 2019 20:48
[2019-12-27] MEDS ORDERED: predniSONE 10 MG TABLET PO ONE (21:30)
[2019-12-27] MEDS ORDERED: ACETAMINOPHEN 500 MG TABLET PO ONE (21:30)
[2019-12-27] MEDS ORDERED: IPRATRPIUM/ALBUTEROL 0.5/2.5MG 3 ML NEBU. NEB ONE (21:30)
[2019-12-27 21:35] LABS: INFLUENZA A PATIENT NEGATIVE (NEGATIVE); INFLUENZA B PATIENT NEGATIVE (NEGATIVE)
[2019-12-27 21:49] LABS: BILIRUBIN,URINE NEG (NEG); CLARITY,URINE CLEAR; COLOR,URINE YELLOW; GLUCOSE,URINE 500 mg/dL (NEG)
[2019-12-27 21:50] LABS: BACTERIA,URINE 0 /HPF (0-FEW); NITRITE,URINE NEG (NEG); RBC,URINE 0 /HPF (0-2); SQUAMOUS EPITHELIAL CELL,UR FEW /LPF; UROBILINOGEN,URINE 0.2 mg/dL (0.2 mg/dL)
== END 2019-12-27 21:30 | disposition left against medical advice (07) ==
LOC: ER 20:45
DX: B34.9 Viral infection, unspecified (principal); J40 Bronchitis, not specified as acute or chronic; E11.9 Type 2 diabetes mellitus without complications; I10 Essential (primary) hypertension; F41.9 Anxiety disorder, unspecified; F25.0 Schizoaffective disorder, bipolar type; K21.9 Gastro-esophageal reflux disease without esophagitis; F17.210 Nicotine dependence, cigarettes, uncomplicated; Z87.442 Personal history of urinary calculi; Z87.440 Personal history of urinary (tract) infections; Z86.718 Personal history of other venous thrombosis and embolism; Z88.1 Allergy status to other antibiotic agents
CPT/HCPCS: 81001; 82947; 87070; 87804; 87880; 94640; 99283-25

== ENCOUNTER 2020-01-06 02:44 | Emergency (ER) | payer BC ==
[~2020-01-06] VITALS: Ht 162.6 cm; Wt 91.0 kg
--- NOTE | 2020-01-06 03:01 | PHYS DOC ---
Past History Past Medical History: Anxiety, Bipolar, Bronchitis, Constipation, Diverticulitis, Diabetes, DVT, Fibromyalgia, GERD, Kidney Stones, Liver Disease, Pancreatitis, UTI, Other Additional Past Medical Histor: RODRIGUEZ, artherosclerosis Past Surgical History: Cholecystectomy, Hysterectomy, Tonsillectomy, Other Additional Past Surgical Histo: hernia and breast reduction Smoking: Cigarettes, Less than 1pk/day Alcohol Use: None Drug Use: None Adult General Chief Complaint Chief Complaint: ""..I was in the shower... and was getting out and slipped and hit my head when I fell...." [facility] HPI Patient is a 39 year old female who presents with above hx and complaints of head contusion on Rt. forehead .. Pt. complaints of Rt lower abd. contusion. Pt. has a history of fibromyalgia, diabetes, hypertension, DVT, arthritis. and obesity. . Patient normally follows with [facility] for care. No outside the cancer area. No history of specific ill. No history of specific immunosuppression. Review of Systems Review of Systems Constitutional: Denies fever or chills [] Eyes: Denies change in visual acuity, redness, or eye pain [] HENT: Denies nasal congestion or sore throat Complaint s of headache from contusion to Rt. side forehead. Respiratory: Denies cough or shortness of breath [] Cardiovascular: No additional information not addressed in [facility] [] GI: Complaints contusion Rt. lower abdominal pain. Denies nausea, vomiting, bloody stools or diarrhea [] : Denies dysuria or hematuria [] Musculoskeletal: Denies back pain or joint pain [] Integument: Denies rash or skin lesions [] Neurologic: Denies headache, focal weakness or sensory changes [] Endocrine: Denies polyuria or polydipsia [] All other systems were reviewed and found to be within normal limits, except as documented in this note. Family History Family History Noncontributory to presentation Current Medications Current Medications See nursing for home meds Allergies Allergies Allergies Coded Allergies Type Severity Reaction Last Updated Verified levofloxacin Allergy Intermediate 10/06/18 Yes vancomycin Allergy Intermediate 03/18/19 Yes Physical Exam Physical Exam Constitutional: Moderate acute distress, non-toxic appearance. [] HENT: Normocephalic, contusion to right side of forehead, bilateral external ears normal, oropharynx moist, no oral exudates, nose normal. [] Eyes: PERRLA, EOMI, conjunctiva normal, no discharge. [] Neck: Normal range of motion, mild upper cervical tenderness, supple, no stridor. [] Cardiovascular:Heart rate regular rhythm, no murmur [] Lungs & Thorax: Bilateral breath sounds equal at apexes with basilar crackles auscultation [] Abdomen: Bowel sounds normal, soft, right lower abdomen tenderness, no masses, no pulsatile masses. Morbid obesity. Old surgery scars. No rebound. Blood glucose monitor left abdomen Skin: Warm, dry, no erythema, no rash. [] Back: No tenderness, no CVA tenderness. [] Extremities: No tenderness, no cyanosis, no clubbing, ROM intact, no edema. No psoas sign on right Neurologic: Alert and oriented X 3, normal motor function, normal sensory function, no focal deficits noted. []DTRs +2 patella and brachial. Veterinary Manager equal. Right-hand dominant. Patient was ambulatory. Psychologic: Affect anxious judgement normal, mood normal. [] EKG EKG [] Radiology/Procedures Radiology/Procedures [][place] [address] IMAGING REPORT Signed PATIENT: SANFORD RANDHAWA ACCOUNT: [id number] : 1980 LOCATION: ER AGE: 39 SEX: F EXAM STATUS: REG ER ORD. PHYSICIAN: RICKIE LAMB MD REASON: fall in bathroom, abd. pain PROCEDURE: ACUTE ABDOMEN SERIES INDICATION: Status post fall COMPARISON: November 29, 2019 IMPRESSION: 4 views of chest and abdomen obtained. Mild interstitial prominence although this is similar to prior exam. Cardiac silhouette similar to prior. Surgical clips right upper quadrant of abdomen could be post cholecystectomy. Device projecting of the left side of the abdomen. Air scattered throughout the large and small bowel in a grossly nonobstructive pattern. A definite displaced fracture is not seen. Electronically signed by: Ai Salmeron MD (01/06/2020 3:57 AM) [id number] DICTATED AND SIGNED BY: AI SALMERON MD DATE: 01/06/20 0357 CC: RICKIE LAMB MD; LATHA DIA PA-C ~ Course & Med Decision Making Course & Med Decision Making Pertinent Labs and Imaging studies reviewed. (See chart for details) Patient use ice packs as needed. Follow-up primary care. Take Tylenol and ibuprofen as needed for pain. Expect increased soreness. May take Flexeril 10 mg up to 3 times a day for muscle spasms. Impression: 1. Fall 2. Head Injury 3. Contusion L.t lower abdomen, Muscle strain 4. DM 5. Give appearance of narcotic seeking behaviors ( Multiple different ED visits for pain meds ) [] Dragon Disclaimer Dragon Disclaimer This electronic medical record was generated, in whole or in part, using a voice recognition dictation system. Departure Departure: Disposition: HOME/RESIDENCE PRIOR TO ADM Condition: STABLE Referrals: LATHA DIA PA-C (PCP) Scripts Hydrocodone/Ibuprofen (HYDROCODONE-IBUPROFEN 7.5-200 ) 1 Each Tablet 1 TAB PO PRN Q6HRS PRN for PAIN, #30 TAB 0 Refills Prov: RICKIE LAMB MD 01/06/20 Cyclobenzaprine Hcl (CYCLOBENZAPRINE HCL) 10 Mg Tablet 10 MG PO tidprn for marked muscle spasm, #30 TAB Prov: RICKIE LAMB MD 01/06/20 Dragon Disclaimer This chart was dictated in whole or in part using Voice Recognition software in a busy, high-work load, and often noisy Emergency Department environment. It may contain unintended and wholly unrecognized errors or omissions. Dragon Disclaimer This chart was dictated in whole or in part using Voice Recognition software in a busy, high-work load, and often noisy Emergency Department environment. It may contain unintended and wholly unrecognized errors or omissions. RICKIE LAMB MD Jan 06, 2020 03:00
[2020-01-06] MEDS ORDERED: HYDR-1179 PO (03:41)
[2020-01-06] MEDS ORDERED: CYCL-331 PO (03:41)
[2020-01-06 03:46] LABS: BILIRUBIN,URINE NEG (NEG); CLARITY,URINE HAZY; COLOR,URINE YELLOW; GLUCOSE,URINE 500 mg/dL (NEG)
[2020-01-06 03:47] LABS: BACTERIA,URINE FEW /HPF (0-FEW); NITRITE,URINE NEG (NEG); RBC,URINE OCC /HPF (0-2); SQUAMOUS EPITHELIAL CELL,UR MOD /LPF; UROBILINOGEN,URINE 0.2 mg/dL (0.2 mg/dL); WBC,URINE OCC /HPF (0-4)
[2020-01-06 03:53] VITALS: BP 108/62
[2020-01-06] MEDS: oxyCODONE/APAP 5/325 1 TAB TABLET PO ONE ×2 (03:53→03:56)
[2020-01-06 03:56] LABS: BARBITURATES NEG (NEG); BENZODIAZEPINES POS (NEG); CANNABINOIDS NEG (NEG); COCAINE NEG (NEG); METHADONE NEG (NEG); OPIATES POS (NEG); PHENCYCLIDINE NEG (NEG)
--- NOTE | 2020-01-06 04:00 | RAD ---
INDICATION: Status post fall COMPARISON: November 29, 2019 IMPRESSION: 4 views of chest and abdomen obtained. Mild interstitial prominence although this is similar to prior exam. Cardiac silhouette similar to prior. Surgical clips right upper quadrant of abdomen could be post cholecystectomy. Device projecting of the left side of the abdomen. Air scattered throughout the large and small bowel in a grossly nonobstructive pattern. A definite displaced fracture is not seen. Electronically signed by: Pratik Martinez MD (01/06/2020 3:57 AM) [id number]
[2020-01-06 04:01] LABS: AMPHETAMINE/METHAMPHETAMINE NEG (NEG)
--- NOTE | 2020-01-06 04:30 | RAD ---
INDICATION: Status post fall COMPARISON: CT angiogram chest November 14, 2019 TECHNIQUE: Axial CT images obtained through the head and cervical spine. One or more of the following individualized dose reduction techniques were utilized for this examination: 1. Automated exposure control; 2. Adjustment of the mA and/or kV according to patient size; 3. Use of iterative reconstruction technique. FINDINGS: Head: No evidence of acute intracranial hemorrhage. No hydrocephalus. No midline shift. Suprasellar cistern is not effaced. 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 No evidence of dislocation. Lucency is seen at the left side of T1 adjacent to facet joint. When compared to CT angiogram the chest from November 14, 2019 and there was a similar appearance on that exam as well. IMPRESSION: * No acute intracranial hemorrhage. * There is an apparent lucency at the left side of T1 adjacent to the facet joint however there is a similar appearance on prior CT angiogram of the chest at this level therefore would favor that this is secondary to a chronic finding such as a vascular channel rather than acute fracture but would correlate with symptoms in the region and if the patient does have pain at this level and further evaluation is desired MRI could further assess to exclude nondisplaced fracture Electronically signed by: Pratik Martinez MD (01/06/2020 4:27 AM) [id number]
== END 2020-01-06 04:28 | disposition home or self-care (01) ==
LOC: ER 02:44
DX: S00.83XA Contusion of other part of head, initial encounter (principal); S30.1XXA Contusion of abdominal wall, initial encounter; E11.9 Type 2 diabetes mellitus without complications; K21.9 Gastro-esophageal reflux disease without esophagitis; F17.210 Nicotine dependence, cigarettes, uncomplicated; Z90.49 Acquired absence of other specified parts of digestive tract; Z90.710 Acquired absence of both cervix and uterus; Z88.1 Allergy status to other antibiotic agents; W01.198A Fall on same level from slipping, tripping and stumbling with subsequent striking against other object, initial encounter; Y93.89 Activity, other specified; Y92.89 Other specified places as the place of occurrence of the external cause; Y99.8 Other external cause status
CPT/HCPCS: 36415; 70450; 72125; 74022; 80307; 81001; 99285

== ENCOUNTER 2020-01-10 14:52 | Emergency (ER) | payer BC ==
[~2020-01-10] VITALS: Ht 162.6 cm; Wt 87.6 kg
[~2020-01-10 14:52] MED LIST changes: +CYCL-331 PO
[2020-01-10 15:13] VITALS: BP 124/66
[2020-01-10] MEDS ORDERED: IV NORMAL SALINE 1,000ML 1,000 ML IV ONE (15:15)
--- NOTE | 2020-01-10 15:47 | PHYS DOC ---
Past History Past Medical History: Diabetes, Other Additional Past Medical Histor: STAGE 3 RODRIGUEZ Past Surgical History: Cholecystectomy, Hysterectomy, Tonsillectomy, Other Additional Past Surgical Histo: HERNIA Smoking: Cigarettes, Less than 1pk/day Alcohol Use: None Drug Use: None Adult General Chief Complaint Chief Complaint: BLOOD SUGAR PROBLEM HPI HPI The patient left without being seen. She told the nurse that "we were busy and she has a plane to catch in the morning." Review of Systems Review of Systems Not done Current Medications Current Medications Current Medications Medications (Trade) Dose Ordered Sig/Yoko Start Time Stop Time Status Last Admin Dose Admin Insulin Human Regular (HumuLIN R VIAL) 10 unit 1X ONCE 01/10/20 16:00 01/10/20 16:01 Sodium Chloride 1,000 ml @ 1,000 mls/hr 1X ONCE 01/10/20 15:15 01/10/20 16:14 Allergies Allergies Allergies Coded Allergies Type Severity Reaction Last Updated Verified ketorolac Allergy Intermediate Itching 01/06/20 Yes levofloxacin Allergy Intermediate 10/06/18 Yes vancomycin Allergy Intermediate 03/18/19 Yes Physical Exam Physical Exam Not done Current Patient Data Vital Signs Vital Signs Date Time Temp Pulse Resp B/P (MAP) Pulse Ox O2 Delivery O2 Flow Rate FiO2 01/10/20 15:13 98.4 111 18 124/66 (85) 95 Room Air Lab Results Laboratory Tests Test 01/10/20 15:16 Glucose (Fingerstick) 451 mg/dL (70-99) H EKG EKG [] Radiology/Procedures Radiology/Procedures [] Course & Med Decision Making Course & Med Decision Making Pertinent Labs and Imaging studies reviewed. (See chart for details) [] Dragon Disclaimer Dragon Disclaimer This electronic medical record was generated, in whole or in part, using a voice recognition dictation system. Departure Departure: Disposition: HOME/RESIDENCE PRIOR TO ADM Condition: STABLE Referrals: EDIE MILLER (PCP) JOSE MELENDEZ DO Jan 10, 2020 15:47
[2020-01-10 15:52] LABS: BASO % 0 % (0-3); EOS # 0.1 x10^3/uL (0.0-0.7); EOS % 1 % (0-3); HEMATOCRIT 37.5 % (36.0-47.0); HEMOGLOBIN 12.5 g/dL (12.0-15.5); LYMPH # 1.9 x10^3/uL (1.0-4.8); LYMPH % 24 % (24-48); MEAN CORPUSCULAR HEMOGLOBIN 28 pg (25-35); MEAN CORPUSCULAR HGB CONC 33 g/dL (31-37); MEAN CORPUSCULAR VOLUME 83 fL (79-100); MONO # 0.5 x10^3/uL (0.0-1.1); MONO % 6 % (0-9); NEUT # 5.6 x10^3uL (1.8-7.7); NEUT % 68 % (31-73); PLATELET COUNT 212 x10^3/uL (140-400); RED CELL DISTRIBUTION WIDTH 16.8 % (11.5-14.5); WHITE BLOOD COUNT 8.2 x10^3/uL (4.0-11.0)
[2020-01-10] MEDS ORDERED: INSULIN REGULAR 100 UNIT/ML 3ML VIAL. IV ONE (16:00)
[2020-01-10 16:15] LABS: CALCIUM 9.2 mg/dL (8.5-10.1); CREATININE 0.8 mg/dL (0.6-1.0); GFR 79.9; POTASSIUM 4.1 mmol/L (3.5-5.1)
[2020-01-10 16:17] LABS: ALBUMIN 3.6 g/dL (3.4-5.0); TOTAL BILIRUBIN 0.4 mg/dL (0.2-1.0); TOTAL PROTEIN 7.3 g/dL (6.4-8.2)
== END 2020-01-10 15:45 | disposition left against medical advice (07) ==
LOC: ER 14:52
DX: E11.65 Type 2 diabetes mellitus with hyperglycemia (principal); F17.210 Nicotine dependence, cigarettes, uncomplicated; Z53.21 Procedure and treatment not carried out due to patient leaving prior to being seen by health care provider; Z90.89 Acquired absence of other organs; Z90.710 Acquired absence of both cervix and uterus; Z88.1 Allergy status to other antibiotic agents; Z88.8 Allergy status to other drugs, medicaments and biological substances
CPT/HCPCS: 36415; 80053; 82947; 85025

== ENCOUNTER 2020-02-02 03:21 | Observation (INO) | payer BC ==
[~2020-02-02] VITALS: Ht 162.6 cm; Wt 90.1 kg
--- NOTE | 2020-02-02 03:43 | PHYS DOC ---
Past History Past Medical History: Diabetes, High Cholesterol, Other Additional Past Medical Histor: STAGE 3 RODRIGUEZ Past Surgical History: Cholecystectomy, Hysterectomy, Tonsillectomy, Other Additional Past Surgical Histo: HERNIA Smoking: Cigarettes, Less than 1pk/day Alcohol Use: None Drug Use: None General Adult HPI: HPI: ".. My sugars are out of control.. the last one was over 600.. I am on the pump.. I just have given my self 157 of Humalog insulin...I ve been eating right... .. No infections.. or fevers.. .. " I don't know .. why my sugars .. are all over the place.." Patient is a 39 year old female who presents with above hx and complaints elevated glucose levels for the last 2 days. Patient has history of frequent ED visits and occasional admissions for hyperglycemia. Patient states she has been using her insulin pump but is still have high glucose levels. Patient is having frequent urination. Patient complains of some generalized abdomen pain and nausea. Patient denies any intake of excessive amount of food and has been compliant with her diet. Patient has a significant medical history of diabetes which is been longstanding has RODRIGUEZ, and history of pancreatitis. Patient in the past has followed at for her diagnosis of non-alcoholic steatohepatitis. Patient has followed with interpreter for the deaf. No recent outside the [place] area. No specific ill contacts. Other family members are well currently. Pt. follow with [facility] for care. Review of Systems: Review of Systems: Constitutional: Denies fever or chills Eyes: Denies change in visual acuity HENT: Denies nasal congestion or sore throat Respiratory: Denies cough or shortness of breath Cardiovascular: Denies chest pain or edema GI: Complains of some generalized abdominal pain, nausea,. Denies vomiting, bloody stools or diarrhea : Denies dysuria Musculoskeletal: Denies back pain or joint pain Integument: Denies rash Neurologic: Denies headache, focal weakness or sensory changes Endocrine: Complains of polyuria or polydipsia. Complains of elevated glucose Lymphatic: Denies swollen glands Psychiatric: Denies depression or anxiety Heart Score: HEART Score for Chest Pain: HEART Score for Chest Pain Response (Comments) Value History Slighlty/Non-Suspicious 0 ECG Nonspecific Repolarizatio 1 Age < 45 0 Risk Factors 1 or 2 Risk Factors 1 Troponin < Normal Limit 0 Total 2 Risk Factors: Risk Factors: DM, Current or recent (<one month) smoker, HTN, HLP, family history of CAD, obesity. Risk Scores: Score 0 - 3: 2.5% MACE over next 6 weeks - Discharge Home Score 4 - 6: 20.3% MACE over next 6 weeks - Admit for Clinical Observation Score 7 - 10: 72.7% MACE over next 6 weeks - Early Invasive Strategies Family History: Family History: She has 1 sister with diabetes 2 other sisters are healthy. Father has diabetes and A. fib,. Mother is healthy. Has 2 brothers that are healthy. Current Medications: Current Meds: See nursing for home meds Allergies: Allergies: Allergies Coded Allergies Type Severity Reaction Last Updated Verified ketorolac Allergy Intermediate Itching 01/06/20 Yes levofloxacin Allergy Intermediate 10/06/18 Yes vancomycin Allergy Intermediate 03/18/19 Yes Physical Exam: PE: Constitutional: Moderate acute distress, non-toxic appearance. [] HENT: Normocephalic, atraumatic, bilateral external ears normal, oropharynx dry,, no oral exudates, nose normal. [] Eyes: PERRLA, EOMI, conjunctiva normal, no discharge. [] Neck: Normal range of motion, no tenderness, supple, no stridor. More than 17 inches circumference Cardiovascular: Tachycardia heart rate regular rhythm, no murmur [],. The patient has old surgery scars Lungs & Thorax: Bilateral breath sounds equal at apex with few scattered wheezes on auscultation [] Abdomen: Bowel sounds creased l, soft, mild generalized tenderness, no masses, no pulsatile masses. [] Insulin pump. Old surgery scars Skin: Warm, dry, no erythema, no rash. [] Back: No tenderness, no CVA tenderness. [] Extremities: No tenderness, no cyanosis, no clubbing, ROM intact, trace ankle edema. [] Neurologic: Alert and oriented X 3, n moves extremities on request, has distal sensory, no focal deficits noted. [] Psychologic: Affect anxious, judgement normal, mood normal. [] EKG: EKG: EKG shows a sinus rhythm at 96 bpm. Some mild leftward axis. But no findings of acute STEMI of contralateral changes [] Radiology/Procedures: Radiology/Procedures: [][address] [address] IMAGING REPORT Signed PATIENT: SANFORD RANDHAWA ACCOUNT: [id number] : 1980 LOCATION: ER AGE: 39 SEX: F EXAM STATUS: REG ER ORD. PHYSICIAN: RICKIE LAMB MD REASON: pain PROCEDURE: ACUTE ABDOMEN SERIES PA chest and supine and upright AP abdomen x-rays HISTORY: Abdominal pain. COMPARISON: Chest and abdomen x-rays January 06, 2020. FINDINGS: Heart size is normal. No pulmonary opacities or pleural effusions. No pneumoperitoneum. Cholecystectomy clips. Electronic device at the right upper quadrant abdomen. Mild volume of stool. No dilated bowel loops or abnormal air-fluid levels of the bowel. Heterotopic ossification of the right pelvis soft tissues. Bones are unremarkable. Moderate distention of the stomach. Calcifications along the right pelvis stable related to peritoneal calcifications on prior CT imaging. IMPRESSION: No acute process in the chest. No bowel obstruction evident. Electronically signed by: Cynthia Nicole MD (02/02/2020 6:10 AM) [id number] DICTATED AND SIGNED BY: CYNTHIA NICOLE MD DATE: 02/02/20 06 CC: RICKIE LAMB MD; LATHA DIA PA-C ~ Course & Med Decision Making: Course & Med Decision Making Pertinent Labs and Imaging studies reviewed. (See chart for details) Discussed presentation testing and treatment plan with Dr. Deleon. Will admit for further evaluation and treatment. Will hydrate. Impression: 1. Poorly controlled diabetes-hyperglycemia (515) Not acidotic 2. History of RODRIGUEZ 3. Elevated AST ALT and alk phos-44/79/115 4. Dehydration [] Dragon Disclaimer: Dragon Disclaimer: This electronic medical record was generated, in whole or in part, using a voice recognition dictation system. Departure Departure: Disposition: 01 HOME/RESIDENCE PRIOR TO ADM Condition: STABLE Referrals: LATHA DIA PA-C (PCP) Katerine Disclaimer This chart was dictated in whole or in part using Voice Recognition software in a busy, high-work load, and often noisy Emergency Department environment. It may contain unintended and wholly unrecognized errors or omissions. RICKIE LAMB MD Feb 02, 2020 03:43
[2020-02-02] MEDS ORDERED: INSULIN REGULAR VIAL 100 UNIT in IV NORMAL SALINE 100ML 100 ML IV ONE ×2 (04:30→07:00)
[2020-02-02] MEDS ORDERED: IV NORMAL SALINE 1,000ML 1,000 ML IV SCH ×3 (04:30→07:00)
[2020-02-02 05:45] LABS: BASO # 0.1 x10^3/uL (0.0-0.2); BASO % 1 % (0-3); EOS # 0.1 x10^3/uL (0.0-0.7); EOS % 1 % (0-3); HEMATOCRIT 37.4 % (36.0-47.0); HEMOGLOBIN 12.3 g/dL (12.0-15.5); LYMPH # 1.9 x10^3/uL (1.0-4.8); LYMPH % 22 % (24-48); MEAN CORPUSCULAR HEMOGLOBIN 27 pg (25-35); MEAN CORPUSCULAR HGB CONC 33 g/dL (31-37); MEAN CORPUSCULAR VOLUME 82 fL (79-100); MONO # 0.7 x10^3/uL (0.0-1.1); MONO % 8 % (0-9); NEUT # 5.7 x10^3uL (1.8-7.7); NEUT % 68 % (31-73); PLATELET COUNT 198 x10^3/uL (140-400); RED BLOOD COUNT 4.54 x10^6/uL (3.50-5.40); RED CELL DISTRIBUTION WIDTH 17.1 % (11.5-14.5); WHITE BLOOD COUNT 8.4 x10^3/uL (4.0-11.0)
[2020-02-02 06:06] LABS: BARBITURATES NEG (NEG); BENZODIAZEPINES POS (NEG); CANNABINOIDS NEG (NEG); COCAINE NEG (NEG); METHADONE NEG (NEG); OPIATES NEG (NEG); PHENCYCLIDINE NEG (NEG)
[2020-02-02 06:11] LABS: ALBUMIN 3.3 g/dL (3.4-5.0); CALCIUM 8.7 mg/dL (8.5-10.1); CREATININE 0.8 mg/dL (0.6-1.0); DIRECT BILIRUBIN 0.1 mg/dL (0.0-0.2); GFR 79.9; MAGNESIUM 1.9 mg/dL (1.8-2.4); POTASSIUM 3.7 mmol/L (3.5-5.1); TOTAL BILIRUBIN 0.3 mg/dL (0.2-1.0); TOTAL PROTEIN 7.1 g/dL (6.4-8.2)
--- NOTE | 2020-02-02 06:13 | RAD ---
PA chest and supine and upright AP abdomen x-rays HISTORY: Abdominal pain. COMPARISON: Chest and abdomen x-rays January 06, 2020. FINDINGS: Heart size is normal. No pulmonary opacities or pleural effusions. No pneumoperitoneum. Cholecystectomy clips. Electronic device at the right upper quadrant abdomen. Mild volume of stool. No dilated bowel loops or abnormal air-fluid levels of the bowel. Heterotopic ossification of the right pelvis soft tissues. Bones are unremarkable. Moderate distention of the stomach. Calcifications along the right pelvis stable related to peritoneal calcifications on prior CT imaging. IMPRESSION: No acute process in the chest. No bowel obstruction evident. Electronically signed by: Roberto Nicole MD (02/02/2020 6:10 AM) [id number]
--- NOTE | 2020-02-02 06:19 | EKG ---
[address] [address] Test Date: 2020-02-02 Test Time: 05:25:19 Pat Name: SANFORD RANDHAWA Department: Room: Gender: F Nozzle Tender: : 1980 Requested By: RICKIE LAMB Order Number: [id number] Reading MD: Hany Dias Measurements Intervals [place] Rate: 96 P: 36 AL: 144 QRS: -21 QRSD: 92 T: 26 QT: 352 QTc: 451 Interpretive Statements SINUS RHYTHM LEFTWARD AXIS Electronically Signed On 02-03-2020 20:13:49 CDT by Hany Dias
[2020-02-02 06:23] LABS: AMPHETAMINE/METHAMPHETAMINE NEG (NEG)
[2020-02-02] MEDS ORDERED: ACETAMINOPHEN 325 MG TABLET PO PRN (06:45)
[2020-02-02] MEDS ORDERED: ONDANSETRON PF 4 MG/2 ML VIAL. IVP PRN (06:45)
[2020-02-02] MEDS ORDERED: IV NORMAL SALINE 1,000ML 1,000 ML IV ONE (07:00)
[2020-02-02] MEDS ORDERED: IPRATRPIUM/ALBUTEROL 0.5/2.5MG 3 ML NEBU. NEB SCH (08:00)
[2020-02-02 08:03] LABS: CLARITY,URINE CLEAR; COLOR,URINE YELLOW
[2020-02-02 08:04] LABS: BACTERIA,URINE 0 /HPF (0-FEW); BILIRUBIN,URINE NEG (NEG); GLUCOSE,URINE >=1000 mg/dL (NEG); NITRITE,URINE NEG (NEG); RBC,URINE OCC /HPF (0-2); UROBILINOGEN,URINE 0.2 mg/dL (0.2 mg/dL); WBC,URINE OCC /HPF (0-4)
[2020-02-02 08:05] LABS: SQUAMOUS EPITHELIAL CELL,UR FEW /LPF
[2020-02-02 10:31] VITALS: BP 141/86
[2020-02-02] MEDS ORDERED: DEXTROSE 50% 25 GM / 50ML DISP.SYRIN. IV PRN (10:45)
[2020-02-02] MEDS ORDERED: IBUPROFEN 600 MG TABLET. PO PRN (11:00)
[2020-02-02] MEDS ORDERED: INSULIN LISPRO 300 UNITS/3 ML VIAL. SQ SCH (12:00)
== END 2020-02-02 13:30 | disposition left against medical advice (07) ==
LOC: ER 03:21 → INTOOBSV 06:30 → 1 SOUTH 06:30
PROVIDERS: ADMIT Internal Medicine; ATTEND Internal Medicine
DX: E11.65 Type 2 diabetes mellitus with hyperglycemia (principal); E86.0 Dehydration; E78.00 Pure hypercholesterolemia, unspecified; F17.210 Nicotine dependence, cigarettes, uncomplicated; Z79.899 Other long term (current) drug therapy
CPT/HCPCS: 36415; 74022; 80048; 80076; 80307; 81001; 82150; 82550; 82947; 83690; 83735; 83880; 84443; 84484; 85025; 85610; 85730; 86705; 86709; 86803; 87340; 93005; 96361; 96374; 96375; 99285; G0378; J2405; J3010; G0379; J1815; J7030

== ENCOUNTER → 2020-02-21 | Outpatient (CLI) | payer BC ==
[2020-02-02 10:31] VITALS: BP 141/86
== END ==
LOC: LAB 16:25
DX: R74.8 Abnormal levels of other serum enzymes (principal)
CPT/HCPCS: 82306; 82728; 83540; 83550

== ENCOUNTER 2020-03-17 13:58 | Emergency (ER) | payer BC ==
[~2020-03-17] VITALS: Ht 165.1 cm; Wt 89.9 kg
[~2020-03-17 13:58] MED LIST changes: +METF-658 PO; -METF500T11 PO; -PANT40TA5 PO; +PANT40TA6 PO
--- NOTE | 2020-03-17 14:18 | PHYS DOC ---
Past History Past Medical History: Diabetes, High Cholesterol, Other Additional Past Medical Histor: STAGE 3 RODRIGUEZ Past Surgical History: Cholecystectomy, Hysterectomy, Tonsillectomy, Other Additional Past Surgical Histo: HERNIA Smoking: Cigarettes, Less than 1pk/day Alcohol Use: None Drug Use: None General Adult EDM: Chief Complaint: HYPOGLYCEMIA HPI: HPI: Patient is a 39-year-old female who presents to the emergency department for evaluation. She states that this morning she awakened and her blood sugar was low, and she ate some cereal and a corn dog. She states that her blood sugar went up to 150 but began dropping throughout the day. She states that she has an insulin pump which will typically turn off her basal rate if her blood sugar drops which would appear to have done, but her blood sugar became low. She called EMS when her blood sugar dropped to 54 on her meter. EMS administered o ral glucose and her blood sugar came up to 80. The patient does complain of some generalized abdominal pain which began after her blood sugar began dropping. She had some nausea but no vomiting. She has not eaten as much today as she typically does. There are no alleviating or exacerbating factors to her symptoms otherwise. Review of Systems: Review of Systems: Constitutional: Denies fever or chills Eyes: Denies change in visual acuity HENT: Denies nasal congestion or sore throat Respiratory: Denies cough or shortness of breath Cardiovascular: Denies chest pain or edema GI: Denies vomiting, bloody stools or diarrhea : Denies dysuria Musculoskeletal: Denies back pain or joint pain Integument: Denies rash Neurologic: Denies headache, focal weakness or sensory changes Endocrine: Denies polyuria or polydipsia Lymphatic: Denies swollen glands Psychiatric: Denies depression or anxiety Heart Score: Risk Factors: Risk Factors: DM, Current or recent (<one month) smoker, HTN, HLP, family history of CAD, obesity. Risk Scores: Score 0 - 3: 2.5% MACE over next 6 weeks - Discharge Home Score 4 - 6: 20.3% MACE over next 6 weeks - Admit for Clinical Observation Score 7 - 10: 72.7% MACE over next 6 weeks - Early Invasive Strategies Allergies: Allergies: Allergies Coded Allergies Type Severity Reaction Last Updated Verified ketorolac Allergy Intermediate Itching 01/06/20 Yes levofloxacin Allergy Intermediate 10/06/18 Yes vancomycin Allergy Intermediate 03/18/19 Yes Physical Exam: PE: PHYSICAL EXAM: CONSTITUTIONAL: Well developed, well nourished HEAD: normocephalic, atraumatic EENT: PERRL, EOMI. Conjunctivae normal color, sclerae non-icteric; moist mucous membranes. NECK: Supple, non-tender; no meningismus. LUNGS: Lungs CTA, breathing even and unlabored. Normal air movement. HEART: Regular rate and rhythm, no murmur CHEST: No deformity; non-tender ABDOMEN: The abdomen is soft, and non-tender, no masses or bruits. There is no reproducible abdominal tenderness to palpation. EXTREM: Normal ROM; no deformity, no calf tenderness. Normal pulses palpable in all extremities. There is no pedal edema. SKIN: No rash; no diaphoresis NEURO: Alert; normal speech and cognition; CN's grossly intact; strength grossly intact without focal deficit. BACK: No CVA TTP. Current Patient Data: Labs: Laboratory Tests Test 03/17/20 14:35 03/17/20 14:45 White Blood Count 7.9 x10^3/uL Red Blood Count 4.57 x10^6/uL Hemoglobin 12.0 g/dL Hematocrit 36.2 % Mean Corpuscular Volume 79 fL Mean Corpuscular Hemoglobin 26 pg Mean Corpuscular Hemoglobin Concent 33 g/dL Red Cell Distribution Width 18.5 % Platelet Count 202 x10^3/uL Neutrophils (%) (Auto) 76 % Lymphocytes (%) (Auto) 16 % Monocytes (%) (Auto) 6 % Eosinophils (%) (Auto) 1 % Basophils (%) (Auto) 1 % Neutrophils # (Auto) 6.0 x10^3uL Lymphocytes # (Auto) 1.3 x10^3/uL Monocytes # (Auto) 0.5 x10^3/uL Eosinophils # (Auto) 0.1 x10^3/uL Basophils # (Auto) 0.1 x10^3/uL Sodium Level 138 mmol/L Potassium Level 3.6 mmol/L Chloride Level 102 mmol/L Carbon Dioxide Level 29 mmol/L Anion Gap 7 Blood Urea Nitrogen 8 mg/dL Creatinine 0.7 mg/dL Estimated GFR (Cockcroft-Gault) 93.2 BUN/Creatinine Ratio 11 Glucose Level 150 mg/dL Calcium Level 9.1 mg/dL Total Bilirubin 0.3 mg/dL Aspartate Amino Transf (AST/SGOT) 62 U/L Alanine Aminotransferase (ALT/SGPT) 80 U/L Alkaline Phosphatase 102 U/L Total Protein 7.0 g/dL Albumin 3.3 g/dL Albumin/Globulin Ratio 0.9 Lipase 68 U/L Urine Collection Type Unknown Urine Color Beena Urine Clarity Hazy Urine pH 5.5 Urine Specific [place] 1.020 Urine Protein Neg Urine Glucose (UA) Neg mg/dL Urine Ketones (Stick) Neg mg/dL Urine Blood Neg Urine Nitrite Neg Urine Bilirubin Neg Urine Urobilinogen Dipstick 0.2 mg/dL Urine Leukocyte Esterase Neg Urine RBC 1-2 /HPF Urine WBC 1-4 /HPF Urine Squamous Epithelial Cells Few /LPF Urine Bacteria 0 /HPF Urine Mucus Slight /LPF Current Medications Medications (Trade) Dose Ordered Sig/Yoko Route PRN Reason Start Time Stop Time Status Last Admin Dose Admin Multi-Ingredient Mouthwash/Gargle (Gi Cocktail) 20 ml 1X ONCE PO 03/17/20 15:00 03/17/20 15:01 DC 03/17/20 15:01 Sodium Chloride 1,000 ml @ 1,000 mls/hr 1X ONCE IV 03/17/20 16:00 03/17/20 16:59 UNV EKG: EKG: [] Radiology/Procedures: Radiology/Procedures: [] Course & Med Decision Making: Course & Med Decision Making Pertinent Labs studies reviewed. (See chart for details) [] Patient remains stable. I discussed test results, the need for close follow- up, and return precautions. I discussed the importance of maintaining adequate p.o. intake to support her insulin. Discussed the importance of close glycemic monitoring. Dragon Disclaimer: Dragon Disclaimer: This electronic medical record was generated, in whole or in part, using a voice recognition dictation system. Departure Departure: Impression: Primary Impression: Hypoglycemia Additional Impression: Abdominal pain Disposition: HOME/RESIDENCE PRIOR TO ADM Condition: STABLE Referrals: LATHA DIA PA-C (PCP) Patient Instructions: Abdominal Pain, Hypoglycemia (Low Blood Sugar) Justification of Admission: Justification of Admission: Justification of Admission Dx: N/A MAGNO NAGY MD Mar 17, 2020 14:18
[2020-03-17 15:00] LABS: BASO # 0.1 x10^3/uL (0.0-0.2); BASO % 1 % (0-3); EOS # 0.1 x10^3/uL (0.0-0.7); EOS % 1 % (0-3); HEMATOCRIT 36.2 % (36.0-47.0); LYMPH # 1.3 x10^3/uL (1.0-4.8); LYMPH % 16 % (24-48); MEAN CORPUSCULAR HEMOGLOBIN 26 pg (25-35); MEAN CORPUSCULAR HGB CONC 33 g/dL (31-37); MEAN CORPUSCULAR VOLUME 79 fL (79-100); MONO # 0.5 x10^3/uL (0.0-1.1); MONO % 6 % (0-9); NEUT % 76 % (31-73); PLATELET COUNT 202 x10^3/uL (140-400); RED BLOOD COUNT 4.57 x10^6/uL (3.50-5.40); RED CELL DISTRIBUTION WIDTH 18.5 % (11.5-14.5); WHITE BLOOD COUNT 7.9 x10^3/uL (4.0-11.0)
[2020-03-17] MEDS ORDERED: LIDO:MAALOX 1:1 20 ML SINGLE DOSE. PO ONE (15:00)
[2020-03-17 15:08] LABS: CALCIUM 9.1 mg/dL (8.5-10.1); CREATININE 0.7 mg/dL (0.6-1.0); GFR 93.2; POTASSIUM 3.6 mmol/L (3.5-5.1)
[2020-03-17 15:13] LABS: ALBUMIN 3.3 g/dL (3.4-5.0); ALBUMIN/GLOBULIN RATIO 0.9 (1.0-1.7); TOTAL BILIRUBIN 0.3 mg/dL (0.2-1.0)
[2020-03-17 15:25] LABS: BACTERIA,URINE 0 /HPF (0-FEW); BILIRUBIN,URINE NEG (NEG); CLARITY,URINE HAZY; COLOR,URINE AMBER; GLUCOSE,URINE NEG (NEG); NITRITE,URINE NEG (NEG); SQUAMOUS EPITHELIAL CELL,UR FEW /LPF; UROBILINOGEN,URINE 0.2 mg/dL (0.2 mg/dL)
[2020-03-17] MEDS ORDERED: IV NORMAL SALINE 1,000ML 1,000 ML IV ONE (16:00)
[2020-03-17 16:31] VITALS: BP 100/64
== END 2020-03-17 16:45 | disposition home or self-care (01) ==
LOC: ER 13:58
DX: E11.649 Type 2 diabetes mellitus with hypoglycemia without coma (principal); R10.84 Generalized abdominal pain; R11.0 Nausea; E78.00 Pure hypercholesterolemia, unspecified; F17.210 Nicotine dependence, cigarettes, uncomplicated; Z90.49 Acquired absence of other specified parts of digestive tract; Z90.710 Acquired absence of both cervix and uterus; Z88.1 Allergy status to other antibiotic agents; Z88.8 Allergy status to other drugs, medicaments and biological substances
CPT/HCPCS: 36415; 80053; 81001; 82947; 83690; 85025; 96360; 99283; 99285-25; J7030

== ENCOUNTER 2020-03-27 15:26 | Emergency (ER) | payer BC ==
[~2020-03-27] VITALS: Ht 162.6 cm; Wt 89.9 kg
[~2020-03-27 15:26] MED LIST changes: +PANT40TA5 PO; -PANT40TA6 PO
[2020-03-27 15:35] VITALS: BP 117/74
[2020-03-27] MEDS ORDERED: IV NORMAL SALINE 1,000ML 1,000 ML IV ONE (15:45)
[2020-03-27 16:23] LABS: BASO # 0.1 x10^3/uL (0.0-0.2); BASO % 1 % (0-3); EOS # 0.1 x10^3/uL (0.0-0.7); EOS % 1 % (0-3); HEMATOCRIT 37.5 % (36.0-47.0); HEMOGLOBIN 12.3 g/dL (12.0-15.5); LYMPH # 2.1 x10^3/uL (1.0-4.8); LYMPH % 26 % (24-48); MEAN CORPUSCULAR HEMOGLOBIN 26 pg (25-35); MEAN CORPUSCULAR HGB CONC 33 g/dL (31-37); MEAN CORPUSCULAR VOLUME 81 fL (79-100); MONO # 0.7 x10^3/uL (0.0-1.1); MONO % 8 % (0-9); NEUT # 5.4 x10^3uL (1.8-7.7); NEUT % 64 % (31-73); PLATELET COUNT 208 x10^3/uL (140-400); RED BLOOD COUNT 4.65 x10^6/uL (3.50-5.40); WHITE BLOOD COUNT 8.4 x10^3/uL (4.0-11.0)
[2020-03-27] MEDS ORDERED: INSULIN REGULAR 100 UNIT/ML 3ML VIAL. SQ ONE (16:30)
[2020-03-27 16:37] LABS: ALBUMIN 3.4 g/dL (3.4-5.0); ALBUMIN/GLOBULIN RATIO 0.9 (1.0-1.7); TOTAL BILIRUBIN 0.3 mg/dL (0.2-1.0)
[2020-03-27 16:37] LABS: BACTERIA,URINE 0 /HPF (0-FEW); BILIRUBIN,URINE NEG (NEG); CLARITY,URINE CLEAR; COLOR,URINE YELLOW; GLUCOSE,URINE >=1000 mg/dL (NEG); NITRITE,URINE NEG (NEG); SQUAMOUS EPITHELIAL CELL,UR FEW /LPF; UROBILINOGEN,URINE 0.2 mg/dL (0.2 mg/dL); WBC,URINE OCC /HPF (0-4)
[2020-03-27 16:50] LABS: CALCIUM 9.2 mg/dL (8.5-10.1); CREATININE 0.8 mg/dL (0.6-1.0); GFR 79.9
--- NOTE | 2020-03-27 16:56 | PHYS DOC ---
Past History Past Medical History: Diabetes, High Cholesterol, Liver Disease, Other Additional Past Medical Histor: STAGE 3 RODRIGUEZ Past Surgical History: Cholecystectomy, Hysterectomy, Tonsillectomy, Other Additional Past Surgical Histo: HERNIA, carpal tunnel Smoking: Cigarettes, Less than 1pk/day Alcohol Use: None Drug Use: None General Adult EDM: Chief Complaint: HYPERGLYCEMIA HPI: HPI: 39-year-old female with past medical history of diabetes mellitus presents with report of elevated blood sugar. Patient reports she typically receives her insulin through her pump but last night is out of her pump solution. Reports that prescription will arrive tonight. Patient does report taking 80 units of Humalog today. Patient also reports recent carpal tunnel surgery 2 days ago to her left wrist. Denies fever chills. Denies dysuria. Denies . Review of Systems: Review of Systems: Constitutional: Denies fever or chills Eyes: Denies redness or eye pain HENT: Denies nasal congestion or sore throat Respiratory: Denies cough or shortness of breath Cardiovascular: Denies chest pain or palpitations GI: Denies abdominal pain, nausea, or vomiting : Denies dysuria or hematuria Musculoskeletal: Denies back pain or joint pain Integument: Denies rash or skin lesions Neurologic: Denies headache, focal weakness or sensory changes Complete systems were reviewed and found to be within normal limits, except as documented in this note. Current Medications: Current Meds: Current Medications Medications (Trade) Dose Ordered Sig/[facility] Start Time Stop Time Status Last Admin Dose Admin Acetaminophen/ Codeine Phosphate (Tylenol #3) 1 tab 1X ONCE 03/27/20 17:00 03/27/20 17:01 UNV Insulin Human Regular (HumuLIN R VIAL) 14 unit 1X ONCE 03/27/20 16:30 03/27/20 16:31 DC 03/27/20 16:12 14 UNIT Sodium Chloride 1,000 ml @ 1,000 mls/hr 1X ONCE 03/27/20 15:45 03/27/20 16:44 DC 03/27/20 16:04 1,000 MLS/HR Allergies: Allergies: Allergies Coded Allergies Type Severity Reaction Last Updated Verified ketorolac Allergy Intermediate Itching 01/06/20 Yes levofloxacin Allergy Intermediate 10/06/18 Yes vancomycin Allergy Intermediate 03/18/19 Yes Physical Exam: PE: Constitutional: Well developed, well nourished, no acute distress, non-toxic appearance HENT: Normocephalic, atraumatic Eyes: Conjunctiva normal, no discharge Neck: Normal range of motion, no tenderness, supple Lungs & Thorax: No respiratory distress, equal chest rise and fall Abdomen: Soft, no tenderness Skin: Warm, dry, no erythema, no rash Back: No tenderness, no CVA tenderness Extremities: No tenderness, ROM intact, no edema Neurologic: Alert and oriented X 3, no focal deficits noted Psychologic: Affect normal, judgment normal Current Patient Data: Labs: Laboratory Tests Test 03/27/20 15:45 03/27/20 15:48 03/27/20 16:05 Urine Collection Type Unknown Urine Color Yellow Urine Clarity Clear Urine pH 5.0 Urine Specific [place] <=1.005 Urine Protein Neg (NEG-TRACE) Urine Glucose (UA) >=1000 mg/dL (NEG) Urine Ketones (Stick) Neg mg/dL (NEG) Urine Blood Trace (NEG) Urine Nitrite Neg (NEG) Urine Bilirubin Neg (NEG) Urine Urobilinogen Dipstick 0.2 mg/dL (0.2 mg/dL) Urine Leukocyte Esterase Neg (NEG) Urine RBC 1-2 /HPF (0-2) Urine WBC Occ /HPF (0-4) Urine Squamous Epithelial Cells Few /LPF Urine Bacteria 0 /HPF (0-FEW) Glucose (Fingerstick) 336 mg/dL (70-99) H White Blood Count 8.4 x10^3/uL (4.0-11.0) Red Blood Count 4.65 x10^6/uL (3.50-5.40) Hemoglobin 12.3 g/dL (12.0-15.5) Hematocrit 37.5 % (36.0-47.0) Mean Corpuscular Volume 81 fL (79-100) Mean Corpuscular Hemoglobin 26 pg (25-35) Mean Corpuscular Hemoglobin Concent 33 g/dL (31-37) Red Cell Distribution Width 19.0 % (11.5-14.5) H Platelet Count 208 x10^3/uL (140-400) Neutrophils (%) (Auto) 64 % (31-73) Lymphocytes (%) (Auto) 26 % (24-48) Monocytes (%) (Auto) 8 % (0-9) Eosinophils (%) (Auto) 1 % (0-3) Basophils (%) (Auto) 1 % (0-3) Neutrophils # (Auto) 5.4 x10^3uL (1.8-7.7) Lymphocytes # (Auto) 2.1 x10^3/uL (1.0-4.8) Monocytes # (Auto) 0.7 x10^3/uL (0.0-1.1) Eosinophils # (Auto) 0.1 x10^3/uL (0.0-0.7) Basophils # (Auto) 0.1 x10^3/uL (0.0-0.2) EKG: EKG: [] Radiology/Procedures: Radiology/Procedures: [] Course & Med Decision Making: Course & Med Decision Making Pertinent Lab studies reviewed. (See chart for details) Patient presents with report of hyperglycemia. Reports recently ran out of her insulin for her pump. Accu-Chek in the 300s. Labs obtained and posted to chart. Acetone negative. IV fluid hydration provided. Insulin subcutaneously given. Patient stable for discharge with outpatient follow-up with PCP. Discussed findings and plan with patient, who acknowledges understanding and agreement. Katerine Disclaimer: Dragrena Disclaimer: This electronic medical record was generated, in whole or in part, using a voice recognition dictation system. Departure Departure: Impression: Primary Impression: Hyperglycemia Disposition: 01 HOME/RESIDENCE PRIOR TO ADM Condition: STABLE Referrals: LATHA DIA PA-C (PCP) Patient Instructions: Hyperglycemia, [id number] Justification of Admission: Justification of Admission: Justification of Admission Dx: N/A ROGER MILLER DO Mar 27, 2020 16:56
[2020-03-27] MEDS ORDERED: ACETAMINOPHEN/CODEINE 300/30MG TABLET PO ONE (17:30)
== END 2020-03-27 16:57 | disposition home or self-care (01) ==
LOC: ER 15:26
DX: E11.65 Type 2 diabetes mellitus with hyperglycemia (principal); E78.00 Pure hypercholesterolemia, unspecified; F17.210 Nicotine dependence, cigarettes, uncomplicated; Z88.1 Allergy status to other antibiotic agents; Z88.8 Allergy status to other drugs, medicaments and biological substances
CPT/HCPCS: 36415; 80053; 81001; 82010; 82947; 83735; 85025; 96360; 96372; 99283; J1815; J7030

== ENCOUNTER 2020-03-28 21:37 | Emergency (ER) | payer BC ==
[2020-03-27 15:35] VITALS: BP 117/74
--- NOTE | 2020-03-29 02:39 | PHYS DOC ---
Past History Past Medical History: Diabetes, High Cholesterol, Liver Disease, Other Additional Past Medical Histor: STAGE 3 RODRIGUEZ Past Surgical History: Cholecystectomy, Hysterectomy, Tonsillectomy, Other Additional Past Surgical Histo: HERNIA Smoking: Cigarettes, Less than 1pk/day Alcohol Use: None Drug Use: None General Adult HPI: HPI: Patient is a 39 year old female who presents with hx abdomen pain. 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 Left without being seen. Review of Systems: Review of Systems: GI: Complaints of abdominal pain, Heart Score: Risk Factors: Risk Factors: DM, Current or recent (<one month) smoker, HTN, HLP, family history of CAD, obesity. Risk Scores: Score 0 - 3: 2.5% MACE over next 6 weeks - Discharge Home Score 4 - 6: 20.3% MACE over next 6 weeks - Admit for Clinical Observation Score 7 - 10: 72.7% MACE over next 6 weeks - Early Invasive Strategies Allergies: Allergies: Allergies Coded Allergies Type Severity Reaction Last Updated Verified ketorolac Allergy Intermediate Itching 01/06/20 Yes levofloxacin Allergy Intermediate 10/06/18 Yes vancomycin Allergy Intermediate 03/18/19 Yes Physical Exam: PE: Pt. left from front desk team member- Pt. not seen. EKG: EKG: [] Radiology/Procedures: Radiology/Procedures: [] Course & Med Decision Making: Course & Med Decision Making Pertinent Labs and Imaging studies reviewed. (See chart for details) [] Dragon Disclaimer: Dragon Disclaimer: This electronic medical record was generated, in whole or in part, using a voice recognition dictation system. Departure Departure: Impression: Primary Impression: Patient left without being seen Disposition: LEFT WITHOUT BEING SEEN Condition: LEFT WITHOUT BEING SEEN Referrals: EDIE MILLER (PCP) Justification of Admission: Justification of Admission: Justification of Admission Dx: N/A Dragon Disclaimer This chart was dictated in whole or in part using Voice Recognition software in a busy, high-work load, and often noisy Emergency Department environment. It may contain unintended and wholly unrecognized errors or omissions. RICKIE LAMB MD Mar 29, 2020 02:39
== END 2020-03-28 21:44 | disposition left against medical advice (07) ==
LOC: ER 21:37
DX: R10.9 Unspecified abdominal pain (principal); Z53.21 Procedure and treatment not carried out due to patient leaving prior to being seen by health care provider; E11.9 Type 2 diabetes mellitus without complications; E78.00 Pure hypercholesterolemia, unspecified; F17.210 Nicotine dependence, cigarettes, uncomplicated; Z90.49 Acquired absence of other specified parts of digestive tract; Z90.710 Acquired absence of both cervix and uterus; Z88.1 Allergy status to other antibiotic agents; Z88.8 Allergy status to other drugs, medicaments and biological substances

== ENCOUNTER 2020-04-24 17:39 | Emergency (ER) | payer BC ==
[~2020-04-24] VITALS: Ht 165.1 cm; Wt 87.0 kg
[2020-04-24 17:45] VITALS: BP 108/74
[2020-04-24] MEDS ORDERED: IV NORMAL SALINE 1,000ML 1,000 ML IV SCH (18:28)
[2020-04-24] MEDS ORDERED: DICYCLOMINE 20 MG/2 ML VIAL. IM ONE (18:30)
--- NOTE | 2020-04-24 18:33 | PHYS DOC ---
Past History Past Medical History: Diabetes, High Cholesterol, Liver Disease, Other Additional Past Medical Histor: STAGE 3 RODRIGUEZ (TED LÓPEZ MD) Past Surgical History: Cholecystectomy, Hysterectomy, Tonsillectomy, Other Additional Past Surgical Histo: HERNIA (TED LÓPEZ MD) Smoking: Cigarettes, Less than 1pk/day Alcohol Use: None Drug Use: None (TED LÓPEZ MD) General Adult EDM: Chief Complaint: ABDOMINAL PAIN HPI: HPI: 39-year-old female began with lower pelvic pain that is moderate in nature worse with palpation it began last evening and persisted to today. Pain is nonradiating. Patient denies any fevers, chills, cough, vomiting, diarrhea or urinary symptoms. Patient has had a history of gallbladder removal as well as a hernia repair and a hysterectomy. (TED LÓPEZ MD) Review of Systems: Review of Systems: Constitutional: Denies fever or chills Eyes: Denies change in visual acuity HENT: Denies nasal congestion or sore throat Respiratory: Denies cough or shortness of breath Cardiovascular: Denies chest pain or edema GI: Denies , nausea, vomiting, bloody stools or diarrhea complains of lower abdominal pain : denies dysuria Musculoskeletal: Denies back pain or joint pain Integument: Denies rash Neurologic: Denies headache, focal weakness or sensory changes Endocrine: Denies polyuria or polydipsia Lymphatic: Denies swollen glands Psychiatric: Denies depression or anxiety (TED LÓPEZ MD) Heart Score: Risk Factors: Risk Factors: DM, Current or recent (<one month) smoker, HTN, HLP, family history of CAD, obesity. Risk Scores: Score 0 - 3: 2.5% MACE over next 6 weeks - Discharge Home Score 4 - 6: 20.3% MACE over next 6 weeks - Admit for Clinical Observation Score 7 - 10: 72.7% MACE over next 6 weeks - Early Invasive Strategies (TED LÓPEZ MD) Current Medications: Current Meds: Current Medications Medications (Trade) Dose Ordered Sig/Yoko Start Time Stop Time Status Last Admin Dose Admin Sodium Chloride 1,000 ml @ 1,000 mls/hr Q1H 04/24/20 18:28 04/24/20 19:27 UNV (TED LÓPEZ MD) Allergies: Allergies: Allergies Coded Allergies Type Severity Reaction Last Updated Verified ketorolac Allergy Intermediate Itching 3/29/20 Yes levofloxacin Allergy Intermediate 10/06/18 Yes vancomycin Allergy Intermediate 03/18/19 Yes (TED LÓPEZ MD) Physical Exam: PE: Constitutional: Well developed, well nourished, no acute distress, non-toxic appearance. [] HENT: Normocephalic, atraumatic, bilateral external ears normal, oropharynx moist, no oral exudates, nose normal. [] Eyes: PERRLA, EOMI, conjunctiva normal, no discharge. [] Neck: Normal range of motion, no tenderness, supple, no stridor. [] Cardiovascular:Heart rate regular rhythm, no murmur [] Lungs & Thorax: Bilateral breath sounds clear to auscultation [] Abdomen: Abdomen soft no guarding or rebound mild tenderness of lower abdomen. No pulsatile masses Skin: Warm, dry, no erythema, no rash. [] Back: No tenderness, no CVA tenderness. [] Extremities: No tenderness, no cyanosis, no clubbing, ROM intact, no edema. [] Neurologic: Alert and oriented X 3, normal motor function, normal sensory function, no focal deficits noted. [] Psychologic: Affect normal, judgement normal, mood normal. [] (TED LÓPEZ MD) PE: Constitutional: Well developed, well nourished, no acute distress HENT: Normocephalic, atraumatic Eyes: Conjunctiva normal, no discharge Neck: Normal range of motion, no tenderness, supple Lungs & Thorax: No respiratory distress, equal chest rise and fall Abdomen: Soft, no tenderness, no guarding/rebound tenderness/distention Skin: Warm, dry, no erythema, no rash Extremities: No tenderness, ROM intact, no edema Neurologic: Alert and oriented X 3, no focal deficits noted Psychologic: Affect normal, judgment normal (ROGER MILLER DO) EKG: EKG: [] (TED LÓPEZ MD) Radiology/Procedures: Radiology/Procedures: [] (TED LÓPEZ MD) Radiology/Procedures: PROCEDURE: CT ABD PELV W/ IV CONTRST ONLY INDICATION: Reason: Left lower quadrant pain. Hx:Hysterectomy, cholecystectomy, herni / Spl. Instructions: / History: COMPARISON: December 02, 2019 TECHNIQUE: Axial CT images obtained through the abdomen and pelvis with contrast. One or more of the following individualized dose reduction techniques were utilized for this examination: 1. Automated exposure control; 2. Adjustment of the mA and/or kV according to patient size; 3. Use of iterative reconstruction technique. FINDINGS: Mild calcific atherosclerosis without abdominal aortic aneurysm. Liver is low density. Nonspecific but can be seen with fatty infiltration. Postcholecystectomy changes. No peripancreatic fluid collection. Spleen is prominent in size. Fat-containing left adrenal lesion measuring approximately 3 cm which can be seen with myelo lipoma. No hydronephrosis. Urinary bladder is partially distended. Colonic diverticulosis. No periappendiceal inflammatory changes. Calcification of the soft tissues anterior to the right iliac bone. Degenerative changes of the spine. IMPRESSION: * No evidence of bowel obstruction or appendicitis. * Liver is low density and prominent in size. Nonspecific but can be seen with fatty infiltration. * No hydronephrosis. Electronically signed by: Pratik Martinez MD (04/24/2020 8:27 PM) [id number] (ROGER MILLER DO) Course & Med Decision Making: Course & Med Decision Making Pertinent Labs and Imaging studies reviewed. (See chart for details) [Patient presents with lower abdominal pain. Patient will need a CT of the belly to rule out diverticular disease. Patient's care has been signed over to Dr. Miller with labs and CT pending.] (TED LÓPEZ MD) Course & Med Decision Making 1899- Sign out received from Dr. López for patient with abdominal pain. Patient pending laboratory data and CT imaging at time of sign out. Labs reviewed. CT abd/pelvis without acute process. Pain addressed. Patient stable for discharge with outpatient follow-up with PCP. Discussed findings and plan with patient, who acknowledges understanding and agreement. (ROGER MILLER DO) Dragon Disclaimer: Dragon Disclaimer: This electronic medical record was generated, in whole or in part, using a voice recognition dictation system. (TED LÓPEZ MD) Departure Departure: Impression: Primary Impression: Abdominal pain Qualified Codes: R10.9 - Unspecified abdominal pain Additional Impression: Elevated LFTs Disposition: HOME/RESIDENCE PRIOR TO ADM Condition: STABLE Referrals: EDIE MILLER-Bean (PCP) TED HARDIN MD Patient Instructions: Abdominal Pain (Nonspecific) Additional Instructions: Your liver enzymes continue to stay elevated in comparison to prior lab values. Scripts Ondansetron (ONDANSETRON ODT) 4 Mg Tab.rapdis 1 TAB PO PRN Q6-8HRS PRN for NAUSEA, #16 TAB Prov: ROGER MILLER DO 04/24/20 Hyoscyamine Sulfate (LEVSIN-SL) 0.125 Mg Tab.subl 0.125 MG SL Q4-6HRS PRN for PAIN, #20 TAB Prov: ROGER MILLER DO 04/24/20 Famotidine (PEPCID) 20 Mg Tablet 1 TAB PO BID for gastritis, #20 TAB Prov: ROGER MILLER DO 04/24/20 Justification of Admission: Justification of Admission: Justification of Admission Dx: N/A (TED LÓPEZ MD) Justification of Admission Dx: N/A (ROGER MILLER DO) TED LÓPEZ MD Apr 24, 2020 18:33 ROGER MILLER DO Apr 24, 2020 20:50
[2020-04-24] MEDS ORDERED: IOHEXOL 300 MG/ML 75 ML VIAL. IV ONE (19:30)
[2020-04-24 19:42] LABS: BASO # 0.1 x10^3/uL (0.0-0.2); BASO % 1 % (0-3); EOS # 0.1 x10^3/uL (0.0-0.7); EOS % 1 % (0-3); HEMATOCRIT 40.6 % (36.0-47.0); HEMOGLOBIN 13.4 g/dL (12.0-15.5); LYMPH # 1.9 x10^3/uL (1.0-4.8); LYMPH % 22 % (24-48); MEAN CORPUSCULAR HEMOGLOBIN 27 pg (25-35); MEAN CORPUSCULAR HGB CONC 33 g/dL (31-37); MEAN CORPUSCULAR VOLUME 82 fL (79-100); MONO # 0.7 x10^3/uL (0.0-1.1); MONO % 7 % (0-9); NEUT # 6.1 x10^3uL (1.8-7.7); NEUT % 69 % (31-73); PLATELET COUNT 201 x10^3/uL (140-400); RED BLOOD COUNT 4.93 x10^6/uL (3.50-5.40); RED CELL DISTRIBUTION WIDTH 21.8 % (11.5-14.5); WHITE BLOOD COUNT 8.9 x10^3/uL (4.0-11.0)
[2020-04-24 19:47] LABS: CALCIUM 9.4 mg/dL (8.5-10.1); GFR 61.7; POTASSIUM 3.9 mmol/L (3.5-5.1)
[2020-04-24 19:51] LABS: ALBUMIN 3.5 g/dL (3.4-5.0); ALBUMIN/GLOBULIN RATIO 0.9 (1.0-1.7); TOTAL BILIRUBIN 1.2 mg/dL (0.2-1.0); TOTAL PROTEIN 7.6 g/dL (6.4-8.2)
[2020-04-24 20:02] LABS: BACTERIA,URINE FEW /HPF (0-FEW); BILIRUBIN,URINE NEG (NEG); CLARITY,URINE HAZY; COLOR,URINE YELLOW; GLUCOSE,URINE NEG (NEG); NITRITE,URINE NEG (NEG); RBC,URINE OCC /HPF (0-2)
[2020-04-24 20:03] LABS: SQUAMOUS EPITHELIAL CELL,UR MOD /LPF
[2020-04-24] MEDS ORDERED: FAMOTIDINE 20 MG/2 ML VIAL IVP ONE (20:15)
[2020-04-24] MEDS ORDERED: ONDANSETRON PF 4 MG/2 ML VIAL. IVP ONE (20:15)
--- NOTE | 2020-04-24 20:30 | RAD ---
INDICATION: Reason: Left lower quadrant pain. Hx:Hysterectomy, cholecystectomy, herni / Spl. Instructions: / History: COMPARISON: December 02, 2019 TECHNIQUE: Axial CT images obtained through the abdomen and pelvis with contrast. One or more of the following individualized dose reduction techniques were utilized for this examination: 1. Automated exposure control; 2. Adjustment of the mA and/or kV according to patient size; 3. Use of iterative reconstruction technique. FINDINGS: Mild calcific atherosclerosis without abdominal aortic aneurysm. Liver is low density. Nonspecific but can be seen with fatty infiltration. Postcholecystectomy changes. No peripancreatic fluid collection. Spleen is prominent in size. Fat-containing left adrenal lesion measuring approximately 3 cm which can be seen with myelo lipoma. No hydronephrosis. Urinary bladder is partially distended. Colonic diverticulosis. No periappendiceal inflammatory changes. Calcification of the soft tissues anterior to the right iliac bone. Degenerative changes of the spine. IMPRESSION: * No evidence of bowel obstruction or appendicitis. * Liver is low density and prominent in size. Nonspecific but can be seen with fatty infiltration. * No hydronephrosis. Electronically signed by: Pratik Martinez MD (04/24/2020 8:27 PM) [id number]
[2020-04-24 20:41] LABS: ANISOCYTOSIS MOD; PLT ESTIMATE ADEQUATE (ADEQUATE); POLYCHROMASIA SLIGHT
[2020-04-24] MEDS ORDERED: FAMO-63 PO (20:49)
[2020-04-24] MEDS ORDERED: HYOS0.1265 SL (20:49)
[2020-04-24] MEDS ORDERED: ONDA4TAB12 PO (20:49)
== END 2020-04-24 21:10 | disposition home or self-care (01) ==
LOC: ER 17:39
DX: R10.2 Pelvic and perineal pain (principal); R79.89 Other specified abnormal findings of blood chemistry; E11.9 Type 2 diabetes mellitus without complications; E78.00 Pure hypercholesterolemia, unspecified; F17.210 Nicotine dependence, cigarettes, uncomplicated; Z90.49 Acquired absence of other specified parts of digestive tract; Z90.710 Acquired absence of both cervix and uterus; Z88.1 Allergy status to other antibiotic agents; Z88.8 Allergy status to other drugs, medicaments and biological substances
CPT/HCPCS: 36415; 74177; 80053; 81001; 83690; 85025; 87086; 96374; 96375; 99285; J2405; J3010; J3490; J7030; Q9967

== ENCOUNTER 2020-05-09 23:30 | Emergency (ER) | payer BC ==
[~2020-05-09] VITALS: Ht 165.1 cm; Wt 89.4 kg
[~2020-05-09 23:30] MED LIST changes: +FAMO-63 PO; +HYOS0.1265 SL; +ONDA4TAB12 PO
--- NOTE | 2020-05-09 23:53 | PHYS DOC ---
Past History Past Medical History: Anxiety, Depression, Diabetes Additional Past Medical Histor: STAGE 3 RODRIGUEZ Past Surgical History: Cholecystectomy, Hysterectomy Additional Past Surgical Histo: carpal tunnel, hernia Smoking: Cigarettes, Less than 1pk/day Alcohol Use: None Drug Use: None General Adult EDM: Chief Complaint: ABDOMINAL PAIN HPI: HPI: 39-year-old female well-known to the emergency department at both [facility] and [facility] per [facility] review presents with report of lower abdominal discomfort with associated nausea. Patient reports started this evening. Denies vomiting. Denies trauma. Denies dysuria. Patient does report some radiation to her back. Review of Systems: Review of Systems: Constitutional: Denies fever or chills Eyes: Denies redness or eye pain HENT: Denies nasal congestion or sore throat Respiratory: Denies cough or shortness of breath Cardiovascular: Denies chest pain or palpitations GI: Reports abdominal pain and nausea; denies vomiting : Denies dysuria or hematuria Musculoskeletal: Reports back pain; denies joint pain Integument: Denies rash or skin lesions Neurologic: Denies headache, focal weakness or sensory changes Complete systems were reviewed and found to be within normal limits, except as documented in this note. Allergies: Allergies: Allergies Coded Allergies Type Severity Reaction Last Updated Verified ketorolac Allergy Intermediate Itching 01/06/20 Yes levofloxacin Allergy Intermediate 10/06/18 Yes vancomycin Allergy Intermediate 03/18/19 Yes Physical Exam: PE: Constitutional: Well developed, obese HENT: Normocephalic, atraumatic Eyes: Conjunctiva normal, no discharge Neck: Normal range of motion, supple Lungs & Thorax: No respiratory distress, equal chest rise and fall Abdomen: Soft, lower abdominal tenderness on palpation, no guarding/rebound tenderness/distention Skin: Warm, dry, no erythema, no rash Back: No midline tenderness, no CVA tenderness, bilateral lower lumbar paraspinal tenderness on palpation Extremities: No tenderness, ROM intact, no edema Neurologic: Alert and oriented X 3, no focal deficits noted Psychologic: Affect normal, judgment normal EKG: EKG: [] Radiology/Procedures: Radiology/Procedures: [] Course & Med Decision Making: Course & Med Decision Making Pertinent Labs and Imaging studies reviewed. (See chart for details) Patient well-known to emergency department presents with report of lower abdominal pain. History of recent CT imaging less than 2 weeks ago that was unremarkable. Symptomatic treatment provided. IV fluid hydration given. Labs obtained and posted to chart. [facility] reports obtained with last narcotic noted to be filled on 04/28/20 of [place] 5/325mg x 12 tabs. New Rx given for Oxycodone 5mg x 6 tabs Patient stable for discharge with outpatient follow-up with PCP/GI. GI referral provided.. Discussed findings and plan with patient, who acknowledges understanding and agreement. Katerine Disclaimer: Katerine Disclaimer: This electronic medical record was generated, in whole or in part, using a voice recognition dictation system. Departure Departure: Impression: Primary Impression: Abdominal pain Qualified Codes: R10.30 - Lower abdominal pain, unspecified Disposition: HOME/RESIDENCE PRIOR TO ADM Condition: STABLE Referrals: PEDRO PABLO JORDAN MD (PCP) TED HARDIN MD Patient Instructions: Abdominal Pain (Nonspecific) Scripts Hyoscyamine Sulfate (LEVSIN-SL) 0.125 Mg Tab.subl 0.125 MG SL Q4-6HRS PRN for PAIN, #14 TAB Prov: ROGER MILLER DO 05/10/20 Oxycodone Hcl (OXYCODONE HCL IMMED.RELEASE ) 5 Mg Tablet 0.5-1 TAB PO PRN Q6HRS PRN for PAIN, #6 TAB Prov: ROGER MILLER DO 05/10/20 Ondansetron (ONDANSETRON ODT) 4 Mg Tab.rapdis 1 TAB PO PRN Q6-8HRS PRN for NAUSEA, #16 TAB Prov: ROGER MILLER DO 05/10/20 Justification of Admission: Justification of Admission: Justification of Admission Dx: N/A ROGER MILLER DO May 09, 2020 23:53
[2020-05-10] MEDS ORDERED: FAMOTIDINE 20 MG/2 ML VIAL IVP ONE
[2020-05-10] MEDS ORDERED: IV NORMAL SALINE 1,000ML 1,000 ML IV ONE
[2020-05-10 00:16] LABS: BASO # 0.1 x10^3/uL (0.0-0.2); BASO % 1 % (0-3); EOS # 0.1 x10^3/uL (0.0-0.7); EOS % 1 % (0-3); HEMATOCRIT 39.4 % (36.0-47.0); HEMOGLOBIN 13.2 g/dL (12.0-15.5); LYMPH # 2.4 x10^3/uL (1.0-4.8); LYMPH % 24 % (24-48); MEAN CORPUSCULAR HEMOGLOBIN 28 pg (25-35); MEAN CORPUSCULAR HGB CONC 34 g/dL (31-37); MEAN CORPUSCULAR VOLUME 84 fL (79-100); MONO # 0.7 x10^3/uL (0.0-1.1); MONO % 7 % (0-9); NEUT # 6.6 x10^3uL (1.8-7.7); NEUT % 67 % (31-73); PLATELET COUNT 203 x10^3/uL (140-400); RED BLOOD COUNT 4.71 x10^6/uL (3.50-5.40); RED CELL DISTRIBUTION WIDTH 21.7 % (11.5-14.5); WHITE BLOOD COUNT 9.9 x10^3/uL (4.0-11.0)
[2020-05-10 00:23] LABS: CREATININE 0.9 mg/dL (0.6-1.0); GFR 69.7; POTASSIUM 3.5 mmol/L (3.5-5.1)
[2020-05-10 00:24] LABS: CLARITY,URINE CLEAR; COLOR,URINE YELLOW
[2020-05-10 00:25] LABS: BACTERIA,URINE 0 /HPF (0-FEW); BILIRUBIN,URINE NEG (NEG); GLUCOSE,URINE >=1000 mg/dL (NEG); NITRITE,URINE NEG (NEG); RBC,URINE 0 /HPF (0-2); SQUAMOUS EPITHELIAL CELL,UR MOD /LPF; UROBILINOGEN,URINE 0.2 mg/dL (0.2 mg/dL); WBC,URINE OCC /HPF (0-4)
[2020-05-10 00:30] LABS: ALBUMIN 3.5 g/dL (3.4-5.0); ALBUMIN/GLOBULIN RATIO 0.9 (1.0-1.7); MAGNESIUM 2.1 mg/dL (1.8-2.4); TOTAL BILIRUBIN 0.4 mg/dL (0.2-1.0); TOTAL PROTEIN 7.3 g/dL (6.4-8.2)
[2020-05-10] MEDS ORDERED: ONDANSETRON PF 4 MG/2 ML VIAL. IVP ONE (00:30)
[2020-05-10] MEDS ORDERED: DICYCLOMINE 20 MG/2 ML VIAL. IM ONE (00:30)
[2020-05-10 00:36] LABS: ANISOCYTOSIS SLIGHT; PLT ESTIMATE ADEQUATE (ADEQUATE)
[2020-05-10 00:40] VITALS: BP 110/62
[2020-05-10] MEDS ORDERED: HYOS0.1265 SL (00:46)
[2020-05-10] MEDS ORDERED: OXYC5TAB4 PO (00:46)
[2020-05-10] MEDS ORDERED: ONDA4TAB12 PO (00:46)
[2020-05-10] MEDS ORDERED: oxyCODONE IR 5 MG TABLET PO ONE (01:00)
== END 2020-05-10 00:55 | disposition home or self-care (01) ==
LOC: ER 23:30
DX: R10.30 Lower abdominal pain, unspecified (principal); M54.5 Low back pain; E11.9 Type 2 diabetes mellitus without complications; F17.210 Nicotine dependence, cigarettes, uncomplicated; Z90.49 Acquired absence of other specified parts of digestive tract; Z90.89 Acquired absence of other organs; Z88.8 Allergy status to other drugs, medicaments and biological substances; Z88.1 Allergy status to other antibiotic agents
CPT/HCPCS: 36415; 80053; 81001; 83690; 83735; 85025; 96372; 96374; 96375; 99284; J0500; J2405; J3490; J7030

== ENCOUNTER 2020-05-25 00:20 | Emergency (ER) | payer BC ==
[~2020-05-25] VITALS: Ht 162.6 cm; Wt 87.8 kg
--- NOTE | 2020-05-25 01:29 | PHYS DOC ---
Past History Past Medical History: Anxiety, Depression, Diabetes Additional Past Medical Histor: STAGE 3 RODRIGUEZ, hydroadenitis Past Surgical History: Cholecystectomy, Hysterectomy Additional Past Surgical Histo: carpal tunnel, hernia, bilateral ankle Smoking: Cigarettes, Less than 1pk/day Alcohol Use: None Drug Use: None General Adult EDM: Chief Complaint: ABDOMINAL PAIN HPI: HPI: 40-year-old female well-known to the emergency department both at [facility] as well as [facility] presents with report of left lower quadrant abdominal pain which radiates from left flank. Patient reports acute in nature. Reports started at around 2100 and woke her from sleep. Reports that she did notice some hematuria. Reports some associated nausea without vomiting. Denies trauma. Reports last week had some fever. Denies rash. Review of Systems: Review of Systems: Constitutional: Denies fever or chills Eyes: Denies redness or eye pain HENT: Denies nasal congestion or sore throat Respiratory: Denies cough or shortness of breath Cardiovascular: Denies chest pain or palpitations GI: Reports left lower quadrant s abdominal pain and nausea; denies vomiting : Denies dysuria; reports hematuria Musculoskeletal: Reports left flank pain/back pain; denies joint pain Integument: Denies rash or skin lesions Neurologic: Denies headache, focal weakness or sensory changes Complete systems were reviewed and found to be within normal limits, except as documented in this note. Allergies: Allergies: Allergies Coded Allergies Type Severity Reaction Last Updated Verified ketorolac Allergy Intermediate Itching 01/06/20 Yes levofloxacin Allergy Intermediate 10/06/18 Yes vancomycin Allergy Intermediate 03/18/19 Yes Physical Exam: PE: Constitutional: Well developed, well nourished, no acute distress, non-toxic appearance HENT: Normocephalic, atraumatic Eyes: Conjunctiva normal, no discharge Neck: Normal range of motion, supple Lungs & Thorax: Denies respiratory distress, equal chest rise and fall Abdomen: Soft, left lower quadrant tenderness, no guarding/rebound tenderness/distention Skin: Warm, dry, no erythema, no rash Back: No tenderness, left CVA tenderness Extremities: ROM intact, no edema Neurologic: Alert and oriented X 3, no focal deficits noted Psychologic: Affect normal, judgment normal EKG: EKG: [] Radiology/Procedures: Radiology/Procedures: PROCEDURE: CT ABDOMEN PELVIS WO CONTRAST INDICATION: Reason: left flank pain eval for ureteral calculi / Spl. Instructions: / History: COMPARISON: April 24, 2020 TECHNIQUE: Axial CT images obtained through the abdomen and pelvis without contrast. One or more of the following individualized dose reduction techniques were utilized for this examination: 1. Automated exposure control; 2. Adjustment of the mA and/or kV according to patient size; 3. Use of iterative reconstruction technique. FINDINGS: Mild atelectasis at lung bases. Mild calcific atherosclerosis. Liver is prominent in size with low-density which can be seen with fatty infiltration. Postcholecystectomy changes. No peripancreatic fluid collection. Spleen prominent in size. Fat-containing lesion left adrenal region measuring up to about 3 cm. No hydronephrosis. Urinary bladder is partially distended. No periappendiceal inflammatory changes. No dilated loops of bowel suggest obstruction. Degenerative changes of the spine IMPRESSION: * No evidence of bowel obstruction or appendicitis. * No hydronephrosis. * Liver is low density which can be seen with fatty infiltration * Fat-containing left adrenal lesion which can be seen with myelolipoma. Electronically signed by: Pratik Martinez MD (05/25/2020 2:12 AM) [id number] Course & Med Decision Making: Course & Med Decision Making Pertinent Labs and Imaging studies reviewed. (See chart for details) Patient presents with left lower quadrant abdominal pain with radiation from left flank. History of prior kidney stones. Patient also reports episode of hematuria. Labs obtained and posted to chart. IV fluid hydration given. Symptomatic treatment also provided. CT abdomen/pelvis without acute process. [facility] report obtained and reviewed. Last narcotic pain meds from 05/10/20 of [place] 5/325mg x 10 tabs. Patient stable for discharge with outpatient follow-up with PCP/GI. GI referral provided. Discussed findings and plan with patient, who acknowledges understanding and agreement. Katerine Disclaimer: Katerine Disclaimer: This electronic medical record was generated, in whole or in part, using a voice recognition dictation system. Departure Departure: Impression: Primary Impression: Abdominal pain Qualified Codes: R10.32 - Left lower quadrant pain Disposition: 01 HOME/RESIDENCE PRIOR TO ADM Condition: STABLE Referrals: PEDRO PABLO JORDAN MD (PCP) TED HARDIN MD Patient Instructions: Abdominal Pain (Nonspecific) Scripts Oxycodone Hcl (OXYCODONE HCL IMMED.RELEASE ) 5 Mg Tablet 0.5-1 MG PO PRN Q6HRS PRN for PAIN, #6 TAB Prov: ROGER MILLER DO 05/25/20 Hyoscyamine Sulfate (LEVSIN-SL) 0.125 Mg Tab.subl 0.125 MG SL Q4-6HRS PRN for PAIN, #14 TAB Prov: ROGER MILLER DO 05/25/20 Justification of Admission: Justification of Admission: Justification of Admission Dx: N/A ROGER MILLER DO May 25, 2020 01:29
[2020-05-25 01:50] LABS: BASO % 0 % (0-3); EOS # 0.1 x10^3/uL (0.0-0.7); EOS % 1 % (0-3); HEMATOCRIT 41.1 % (36.0-47.0); LYMPH # 2.2 x10^3/uL (1.0-4.8); LYMPH % 25 % (24-48); MEAN CORPUSCULAR HEMOGLOBIN 30 pg (25-35); MEAN CORPUSCULAR HGB CONC 34 g/dL (31-37); MEAN CORPUSCULAR VOLUME 87 fL (79-100); MONO # 0.6 x10^3/uL (0.0-1.1); MONO % 6 % (0-9); NEUT # 6.1 x10^3uL (1.8-7.7); NEUT % 68 % (31-73); PLATELET COUNT 184 x10^3/uL (140-400); RED BLOOD COUNT 4.74 x10^6/uL (3.50-5.40); RED CELL DISTRIBUTION WIDTH 21.1 % (11.5-14.5)
[2020-05-25 01:59] LABS: CALCIUM 9.1 mg/dL (8.5-10.1); GFR 61.4; POTASSIUM 3.7 mmol/L (3.5-5.1)
[2020-05-25] MEDS ORDERED: ONDANSETRON PF 4 MG/2 ML VIAL. IVP ONE (02:00)
[2020-05-25] MEDS ORDERED: FAMOTIDINE 20 MG/2 ML VIAL IVP ONE (02:00)
[2020-05-25] MEDS ORDERED: IV NORMAL SALINE 1,000ML 1,000 ML IV ONE (02:00)
[2020-05-25 02:05] LABS: BILIRUBIN,URINE NEG (NEG); CLARITY,URINE CLEAR; COLOR,URINE YELLOW; GLUCOSE,URINE >=1000 mg/dL (NEG)
[2020-05-25 02:05] LABS: ALBUMIN 3.6 g/dL (3.4-5.0); ALBUMIN/GLOBULIN RATIO 0.9 (1.0-1.7); MAGNESIUM 2.3 mg/dL (1.8-2.4); TOTAL BILIRUBIN 0.3 mg/dL (0.2-1.0); TOTAL PROTEIN 7.8 g/dL (6.4-8.2)
[2020-05-25 02:06] LABS: BACTERIA,URINE 0 /HPF (0-FEW); NITRITE,URINE NEG (NEG); RBC,URINE 0 /HPF (0-2); SQUAMOUS EPITHELIAL CELL,UR OCC /LPF; UROBILINOGEN,URINE 0.2 mg/dL (0.2 mg/dL)
[2020-05-25 02:08] LABS: ANISOCYTOSIS SLIGHT; PLT ESTIMATE ADEQUATE (ADEQUATE)
--- NOTE | 2020-05-25 02:14 | RAD ---
INDICATION: Reason: left flank pain eval for ureteral calculi / Spl. Instructions: / History: COMPARISON: April 24, 2020 TECHNIQUE: Axial CT images obtained through the abdomen and pelvis without contrast. One or more of the following individualized dose reduction techniques were utilized for this examination: 1. Automated exposure control; 2. Adjustment of the mA and/or kV according to patient size; 3. Use of iterative reconstruction technique. FINDINGS: Mild atelectasis at lung bases. Mild calcific atherosclerosis. Liver is prominent in size with low-density which can be seen with fatty infiltration. Postcholecystectomy changes. No peripancreatic fluid collection. Spleen prominent in size. Fat-containing lesion left adrenal region measuring up to about 3 cm. No hydronephrosis. Urinary bladder is partially distended. No periappendiceal inflammatory changes. No dilated loops of bowel suggest obstruction. Degenerative changes of the spine IMPRESSION: * No evidence of bowel obstruction or appendicitis. * No hydronephrosis. * Liver is low density which can be seen with fatty infiltration * Fat-containing left adrenal lesion which can be seen with myelolipoma. Electronically signed by: Pratik Martinez MD (05/25/2020 2:12 AM) [id number]
[2020-05-25] MEDS ORDERED: HYOS0.1265 SL (02:21)
[2020-05-25] MEDS ORDERED: OXYC5TAB4 PO (02:21)
[2020-05-25 02:25] VITALS: BP 113/68
== END 2020-05-25 02:36 | disposition home or self-care (01) ==
LOC: ER 00:20
DX: R10.32 Left lower quadrant pain (principal); R31.9 Hematuria, unspecified; R11.0 Nausea; E11.9 Type 2 diabetes mellitus without complications; F17.210 Nicotine dependence, cigarettes, uncomplicated; Z90.49 Acquired absence of other specified parts of digestive tract; Z90.710 Acquired absence of both cervix and uterus; Z88.8 Allergy status to other drugs, medicaments and biological substances; Z88.1 Allergy status to other antibiotic agents
CPT/HCPCS: 36415; 74176; 80053; 81001; 83690; 83735; 85025; 96374; 96375; 99284; J2405; J3010; J3490; J7030

== ENCOUNTER 2020-06-06 23:03 | Emergency (ER) | payer BC ==
[~2020-06-06] VITALS: Ht 162.6 cm; Wt 89.4 kg
[2020-06-06 23:27] VITALS: BP 147/82
[2020-06-06] MEDS ORDERED: INSULIN REGULAR 100 UNIT/ML 3ML VIAL. SQ ONE (23:45)
--- NOTE | 2020-06-07 00:50 | RAD ---
Study: CR WRIST 3V LEFT Indication: Fall. Wrist injury. Comparison: None. Findings: No acute fracture is identified at the wrist or throughout the imaged hand. No traumatic malalignment. Ulnar minus variance noted of approximately 3 mm. Impression: 1. No acute fracture or traumatic malalignment. 2. Ulnar minus variance. Electronically signed by: LUIZ ACOSTA MD (06/07/2020 12:47 AM) [id number]
--- NOTE | 2020-06-07 00:52 | RAD ---
Study: CR RIBS LEFT AND PA CHEST Indication: Fall. Left-sided rib pain. Comparison: No prior rib series. Findings: Unremarkable cardiomediastinal silhouette and stephy. No lobar consolidation, pleural effusion or pneumothorax. No displaced rib fracture seen on the left. Impression: No displaced rib fracture is identified. No acute radiographic abnormality of the chest. Electronically signed by: LUIZ ACOSTA MD (06/07/2020 12:50 AM) [id number]
--- NOTE | 2020-06-07 00:55 | PHYS DOC ---
Past History Past Medical History: Anxiety, Depression, Diabetes, Other Additional Past Medical Histor: STAGE 3 RODRIGUEZ, hydroadenitis Past Surgical History: Cholecystectomy, Hysterectomy Additional Past Surgical Histo: carpal tunnel, hernia, bilateral ankle Smoking: Cigarettes, Less than 1pk/day Alcohol Use: None Drug Use: None General Adult EDM: Chief Complaint: FELL, LEFT WRIST PAIN AND LEFT RIBS PAIN HPI: HPI: Patient is a 40-year-old female who presented to ER today for evaluation of left wrist pain and left ribs pain after she fell today. Patient says she was walking and somehow she tripped over a chair and fell down on the ground. Patie nt denies any head or neck injury. Patient denies any back pain, no hip pain, no lower extremity pain. Patient also says she run out of her insulin today, she checked her blood sugar and it was high at home. Patient denies any abdominal pain, no nausea vomiting, no chest pain, no trouble breathing. Review of Systems: Review of Systems: Constitutional: Denies fever or chills Eyes: Denies change in visual acuity HENT: Denies nasal congestion or sore throat Respiratory: Denies cough or shortness of breath Cardiovascular: Denies chest pain or edema GI: Denies abdominal pain, nausea, vomiting, bloody stools or diarrhea : Denies dysuria Musculoskeletal: Positive for left wrist pain, left side rib pain. Integument: Denies rash Neurologic: Denies headache, focal weakness or sensory changes Endocrine: Denies polyuria or polydipsia Lymphatic: Denies swollen glands Psychiatric: Denies depression or anxiety Heart Score: Risk Factors: Risk Factors: DM, Current or recent (<one month) smoker, HTN, HLP, family history of CAD, obesity. Risk Scores: Score 0 - 3: 2.5% MACE over next 6 weeks - Discharge Home Score 4 - 6: 20.3% MACE over next 6 weeks - Admit for Clinical Observation Score 7 - 10: 72.7% MACE over next 6 weeks - Early Invasive Strategies Current Medications: Current Meds: Current Medications Medications (Trade) Dose Ordered Sig/Yoko Start Time Stop Time Status Last Admin Dose Admin Insulin Human Regular (HumuLIN R VIAL) 7 unit 1X ONCE 06/06/20 23:45 06/06/20 23:46 DC 06/06/20 23:41 7 UNIT Allergies: Allergies: Allergies Coded Allergies Type Severity Reaction Last Updated Verified ketorolac Allergy Intermediate Itching 05/25/20 Yes levofloxacin Allergy Intermediate 05/25/20 Yes shellfish derived Allergy Intermediate Swelling 05/25/20 Yes vancomycin Allergy Intermediate 05/25/20 Yes Physical Exam: PE: Constitutional: Well developed, well nourished, no acute distress, non-toxic appearance. [] HENT: Normocephalic, atraumatic, bilateral external ears normal, oropharynx moist, no oral exudates, nose normal. [] Eyes: PERRLA, EOMI, conjunctiva normal, no discharge. [] Neck: Normal range of motion, no tenderness, supple, no stridor. [] Cardiovascular:Heart rate regular rhythm, no murmur [] Lungs & Thorax: Bilateral breath sounds clear to auscultation. there is tenderness to palpation on the left lateral rib area, no contusion noted, no crepitus. Abdomen: Bowel sounds normal, soft, no tenderness, no masses, no pulsatile masses. [] Skin: Warm, dry, no erythema, no rash. [] Back: No tenderness, no CVA tenderness. [] Extremities: There is tenderness to palpation on the left wrist area, there is no deformity, no swelling noted. There are no neurological deficits. Neurologic: Alert and oriented X 3, normal motor function, normal sensory function, no focal deficits noted. [] Psychologic: Affect normal, judgement normal, mood normal. [] Current Patient Data: Labs: Laboratory Tests Test 06/06/20 23:19 06/06/20 23:30 06/07/20 00:13 Glucose (Fingerstick) 363 mg/dL (70-99) H 305 mg/dL (70-99) H POC Urine HCG, Qualitative hcg negative (Negative) Vital Signs: Vital Signs Date Time Temp Pulse Resp B/P (MAP) Pulse Ox O2 Delivery O2 Flow Rate FiO2 06/06/20 23:27 98.2 111 16 147/82 (103) 95 Room Air EKG: EKG: [] Radiology/Procedures: Radiology/Procedures: [][address] [address] IMAGING REPORT Signed PATIENT: SANFORD RANDHAWA ACCOUNT: [id number] : 1980 LOCATION: ER AGE: 40 SEX: F EXAM STATUS: REG ER ORD. PHYSICIAN: PEDRO PABLO QUACH DO REASON: FALL, LEFT WRIST INJURY PROCEDURE: WRIST 3V LEFT Study: CR WRIST 3V LEFT Indication: Fall. Wrist injury. Comparison: None. Findings: No acute fracture is identified at the wrist or throughout the imaged hand. No traumatic malalignment. Ulnar minus variance noted of approximately 3 mm. Impression: 1. No acute fracture or traumatic malalignment. 2. Ulnar minus variance. Electronically signed by: LUIZ ACOSTA MD (06/07/2020 12:47 AM) [id number] DICTATED AND SIGNED BY: LUIZ ACOSTA MD DATE: 06/07/2046 CC: PEDRO PABLO JORDAN MD; PEDRO PABLO QUACH DO ~ [place] [address] IMAGING REPORT Signed PATIENT: SANFORD RANDHAWA ACCOUNT: [id number] : 1980 LOCATION: ER AGE: 40 SEX: F EXAM STATUS: REG ER ORD. PHYSICIAN: PEDRO PABLO QUACH DO REASON: FALL, LEFT SIDE RIB PAIN. DASHAWN MARKED WITH BB PROCEDURE: RIBS LEFT AND PA CHEST Study: CR RIBS LEFT AND PA CHEST Indication: Fall. Left-sided rib pain. Comparison: No prior rib series. Findings: Unremarkable cardiomediastinal silhouette and stephy. No lobar consolidation, pleural effusion or pneumothorax. No displaced rib fracture seen on the left. Impression: No displaced rib fracture is identified. No acute radiographic abnormality of the chest. Electronically signed by: LUIZ ACOSTA MD (06/07/2020 12:50 AM) [id number] DICTATED AND SIGNED BY: LUIZ ACOSTA MD DATE: 06/07/2049 CC: PEDRO PABLO JORDAN MD; PEDRO PABLO QUACH DO ~ Course & Med Decision Making: Course & Med Decision Making Pertinent Labs and Imaging studies reviewed. (See chart for details) Patient is a 40-year-old female who was evaluated in ER after she fell at home. Patient complained of left wrist pain and left-sided rib pain, x-ray did not show any acute fracture. Patient was placed on a VELCRO wrist splint ON LEFT WRIST BY HER RN. Patient was discharged home in stable condition, she will need to follow-up with her family doctor in a week for evaluation of her left wrist with another x-ray. Patient was given some insulin in ER for her elevated sugar level. Her blood sugar was around 300 at the time of discharge. Patient was told to call her family doctor tomorrow for follow-up about her hyperglycemia. Dragon Disclaimer: Dragon Disclaimer: This electronic medical record was generated, in whole or in part, using a voice recognition dictation system. Departure Departure: Impression: Primary Impression: Left wrist sprain Additional Impressions: Contusion of left chest wall Hyperglycemia Disposition: HOME/RESIDENCE PRIOR TO ADM Condition: IMPROVED Referrals: PEDRO PABLO JORDAN MD (PCP) please follow up with your doctor in 7 days for repeat xray of your left wrist. Patient Instructions: Chest Contusion, Hyperglycemia, Wrist Sprain with Rehab- [facility] Additional Instructions: Thank you for visiting our Emergency Department. We appreciate you trusting us with your care. If any additional problems come up don't hesitate to return to visit us. Please follow up with your primary care provider so they can plan additional care if needed and know about the problem that you had. If symptoms worsen come back to the Emergency Department. Any concerning symptoms that start such as chest pain, shortness of air, weakness or numbness on one side of the body, running high fevers or any other concerning symptoms return to the ER. Justification of Admission: Justification of Admission: Justification of Admission Dx: N/A PEDRO PABLO QUACH DO Jun 07, 2020 00:55
== END 2020-06-07 01:35 | disposition home or self-care (01) ==
LOC: ER 23:03
DX: S63.502A Unspecified sprain of left wrist, initial encounter (principal); S20.212A Contusion of left front wall of thorax, initial encounter; E11.65 Type 2 diabetes mellitus with hyperglycemia; F41.9 Anxiety disorder, unspecified; F32.9 Major depressive disorder, single episode, unspecified; F17.210 Nicotine dependence, cigarettes, uncomplicated; Z88.8 Allergy status to other drugs, medicaments and biological substances; Z88.1 Allergy status to other antibiotic agents; Z91.013 Allergy to seafood; W18.09XA Striking against other object with subsequent fall, initial encounter; Y93.01 Activity, walking, marching and hiking; Y92.89 Other specified places as the place of occurrence of the external cause; Y99.8 Other external cause status
CPT/HCPCS: 29125; 71101; 73110; 81025; 82947; 96372; 99284; J1815

== ENCOUNTER 2020-07-09 16:25 | Inpatient (IN) | payer BC ==
[~2020-07-09] VITALS: Ht 162.6 cm; Wt 90.9 kg
[~2020-07-09 16:25] MED LIST changes: -PANT40TA5 PO; +PANT40TA6 PO
[2020-07-09] MEDS ORDERED: MORPHINE SULFATE 4 MG/ML DISP.SYRIN. IV ONE (17:30)
[2020-07-09] MEDS ORDERED: IV NORMAL SALINE 1,000ML 1,000 ML IV ONE (17:30)
[2020-07-09] MEDS ORDERED: ONDANSETRON PF 4 MG/2 ML VIAL. IVP ONE (17:30)
[2020-07-09] MEDS ORDERED: cefTRIAXone SODIUM 1 GM VIAL ONE (17:54)
[2020-07-09] MEDS ORDERED: IV NORMAL SALINE 50ML 50 ML ONE (17:54)
--- NOTE | 2020-07-09 18:07 | RAD ---
EXAM: CHEST AP ONLY 07/09/2020 5:24 PM CLINICAL INDICATION: Cough COMPARISON: Chest and left rib radiograph 06/06/2020 TECHNIQUE: AP upright view of the chest FINDINGS: The heart and mediastinum are normal. Lungs are well-expanded and clear. No consolidation, pleural effusion, or pneumothorax. Pulmonary vascularity is normal. The thoracic skeleton is intact. IMPRESSION: Normal chest radiograph. Electronically signed by: Leonora Gant MD (07/09/2020 6:04 PM) [id number]
--- NOTE | 2020-07-09 18:13 | PHYS DOC ---
Past History Past Medical History: Anxiety, Depression, Diabetes, Other Additional Past Medical Histor: STAGE 3 RODRIGUEZ, hydroadenitis (MARIA DEL ROSARIO DAMON MD) Past Surgical History: Cholecystectomy, Hysterectomy Additional Past Surgical Histo: carpal tunnel, hernia, bilateral ankle (MARIA DEL ROSARIO DAMON MD) Smoking: Cigarettes, Less than 1pk/day Alcohol Use: None Drug Use: None (MARIA DEL ROSARIO DAMON MD) Adult General Chief Complaint Chief Complaint: HYPERGLYCEMIA HPI HPI Patient is 40-year-old female with past medical history of diabetes and high blood pressure presents to the emergency room complaining of high blood glucose. She went to on Tuesday for URI symptoms. They told her she likely had coronavirus and started her on steroids. Since that time her glucoses have been running high. She is gotten a total of 155 units of insulin today from her pump but continues to have high glucoses. Her glucose prior to arrival was 525. She states that she feels nauseous, is having abdominal pain, is having flank pain. She is concerned about possible DKA. It is been quite sometime since she has had DKA. (MARIA DEL ROSARIO DAMON MD) Review of Systems Review of Systems General: Reports fever, chills, sweats, fatigue Eyes: Denies drainage, blurred vision, eye redness HENT: Reports rhinorrhea, sore throat Respiratory: Denies wheezing reports cough, shortness of breath Cardiac: Denies edema, palpitations, chest pain GI: Reports abdominal pain, Nausea, vomiting MSK: Denies back pain, neck pain Skin: Denies rash, jaundice Neuro: Denies dizziness reports headache Psychiatric: Denies SI/HI (MARIA DEL ROSARIO DAMON MD) Current Medications Current Medications Current Medications Medications (Trade) Dose Ordered Sig/Yoko Start Time Stop Time Status Last Admin Dose Admin Ceftriaxone Sodium 1 gm/ Sodium Chloride 50 ml @ 100 mls/hr 1X ONCE 07/09/20 17:30 07/09/20 17:59 DC Ceftriaxone Sodium (Rocephin) 1 gm STK-MED ONCE 07/09/20 17:54 07/09/20 17:55 DC Morphine Sulfate (Morphine 4mg Syringe) 4 mg 1X ONCE 07/09/20 17:30 07/09/20 17:44 DC Ondansetron HCl (Zofran) 4 mg 1X ONCE 07/09/20 17:30 07/09/20 17:44 DC Sodium Chloride 50 ml @ As Directed STK-MED ONCE 07/09/20 17:54 07/09/20 17:55 DC (MARIA DEL ROSARIO DAMON MD) Allergies Allergies Allergies Coded Allergies Type Severity Reaction Last Updated Verified ketorolac Allergy Intermediate Itching 05/25/20 Yes levofloxacin Allergy Intermediate 05/25/20 Yes shellfish derived Allergy Intermediate Swelling 05/25/20 Yes vancomycin Allergy Intermediate 05/25/20 Yes (MARIA DEL ROSARIO DAMON MD) Physical Exam Physical Exam General: Awake, alert, NAD. Well Nourished, well hydrated. Cooperative HEENT: Atraumatic, EOMI, PERRL, airway patent, moist oral mucosa Neck: Supple, trachea midline Respiratory: CTA bilaterally, normal effort, no wheezing/crackles CV: Tachycardic, no murmur, cap refill <2 GI: Soft, nondistended, nontender, no masses MSK: No obvious deformities Skin: Warm, dry, intact Neuro: A&O x3, speech NL, sensory and motor grossly intact, no focal deficits Psych: Normal affect, normal mood, not suicidal or homicidal (MARIA DEL ROSARIO DAMON MD) Current Patient Data Lab Results Laboratory Tests Test 07/09/20 17:16 POC Urine HCG, Qualitative hcg negative (Negative) (MARIA DEL ROSARIO DAMON MD) EKG EKG [] (MARIA DEL ROSARIO DAMON MD) Radiology/Procedures Radiology/Procedures [] (MARIA DEL ROSARIO DAMON MD) Impressions: EXAM: CHEST AP ONLY 07/09/2020 5:24 PM CLINICAL INDICATION: Cough COMPARISON: Chest and left rib radiograph 06/06/2020 TECHNIQUE: AP upright view of the chest FINDINGS: The heart and mediastinum are normal. Lungs are well-expanded and clear. No consolidation, pleural effusion, or pneumothorax. Pulmonary vascularity is normal. The thoracic skeleton is intact. IMPRESSION: Normal chest radiograph. Electronically signed by: Leonora Gant MD (07/09/2020 6:04 PM) [id number] DICTATED AND SIGNED BY: LEONORA GANT MD DATE: 07/09/20 180 CC: PEDRO PABLO JORDAN MD; MARIA DEL ROSARIO DAMON MD ~ (JOSE MELENDEZ DO) Course & Med Decision Making Course & Med Decision Making Pertinent Labs and Imaging studies reviewed. (See chart for details) Patient is a 40-year-old female past medical history of diabetes who presents to the emergency room complaining of hyperglycemia. Patient was placed on steroids 2 days ago which is likely the cause of her increased glucose. She is also ill at this time which can also increase her glucose. Chest x-ray was ordered to rule out pneumonia. Labs were ordered to evaluate for DKA. Patient was given Zofran and fluids. Patient discussed with Dr. Melendez who will assume care. (MARIA DEL ROSARIO DAMON MD) Course & Med Decision Making The patient's blood sugar is just under 500. I will place her on insulin drip and admitted to the hospital. She is in agreement with this plan. I talk with Dr. Jordan and he has accepted the patient for admission. By protocol she will go to the ICU. (JOSE MELENDEZ DO) Dragon Disclaimer Dragon Disclaimer This electronic medical record was generated, in whole or in part, using a voice recognition dictation system. (MARIA DEL ROSARIO DAMON MD) Departure Departure: Impression: Primary Impression: Hyperglycemia Additional Impression: DKA (diabetic ketoacidoses) Disposition: ADMITTED INPATIENT Admitting Physician: Pedro Pablo Jordan (JOSE MELENDEZ DO) Condition: STABLE Referrals: PEDRO PABLO JORDAN MD (PCP) Problem Qualifiers MARIA DEL ROSARIO DAMON MD Jul 09, 2020 18:13 JOSE MELENDEZ DO Jul 09, 2020 19:57
[2020-07-09 18:20] LABS: C REACTIVE PROTEIN 23.8 mg/L (0-3.3)
[2020-07-09 18:21] LABS: ALBUMIN 3.5 g/dL (3.4-5.0); ALBUMIN/GLOBULIN RATIO 0.8 (1.0-1.7); CALCIUM 10.2 mg/dL (8.5-10.1); CREATININE 1.2 mg/dL (0.6-1.0); GFR 49.8; POTASSIUM 4.8 mmol/L (3.5-5.1); TOTAL BILIRUBIN 0.4 mg/dL (0.2-1.0); TOTAL PROTEIN 8.1 g/dL (6.4-8.2)
[2020-07-09 18:49] LABS: BASO # 0.1 x10^3/uL (0.0-0.2); BASO % 1 % (0-3); EOS % 0 % (0-3); HEMATOCRIT 46.1 % (36.0-47.0); HEMOGLOBIN 14.9 g/dL (12.0-15.5); LYMPH # 0.7 x10^3/uL (1.0-4.8); LYMPH % 4 % (24-48); MEAN CORPUSCULAR HEMOGLOBIN 30 pg (25-35); MEAN CORPUSCULAR HGB CONC 32 g/dL (31-37); MEAN CORPUSCULAR VOLUME 92 fL (79-100); MONO # 0.7 x10^3/uL (0.0-1.1); MONO % 4 % (0-9); NEUT # 16.1 x10^3uL (1.8-7.7); NEUT % 91 % (31-73); PLATELET COUNT 257 x10^3/uL (140-400); RED BLOOD COUNT 5.03 x10^6/uL (3.50-5.40); RED CELL DISTRIBUTION WIDTH 17.4 % (11.5-14.5); WHITE BLOOD COUNT 17.6 x10^3/uL (4.0-11.0)
[2020-07-09 18:49] LABS: CLARITY,URINE CLEAR; COLOR,URINE YELLOW; GLUCOSE,URINE >=1000 mg/dL (NEG)
[2020-07-09 18:50] LABS: AMORPHOUS SEDIMENT,UR PRESENT /HPF; BACTERIA,URINE 0 /HPF (0-FEW); BILIRUBIN,URINE NEG (NEG); NITRITE,URINE NEG (NEG); RBC,URINE RARE /HPF (0-2); UROBILINOGEN,URINE 0.2 mg/dL (0.2 mg/dL); WBC,URINE 0 /HPF (0-4)
[2020-07-09] MEDS ORDERED: INSULIN REGULAR VIAL 100 UNIT in IV NORMAL SALINE 100ML 100 ML IV PRN (19:15)
[2020-07-09] MEDS ORDERED: DEXTROSE 50% 25 GM / 50ML DISP.SYRIN. IV PRN (19:15)
[2020-07-09 19:42] LABS: % BANDS 3 % (0-9); % EOS 1 % (0-5); % LYMPHS 5 % (24-48); % MONOS 5 % (0-10); % SEGS 86 % (35-66); PLT ESTIMATE ADEQUATE (ADEQUATE)
[2020-07-09 20:45] VITALS: BP 120/72
--- NOTE | 2020-07-09 20:45 | NUR ---
Pt admitted from ER to ICU bed 5 via [facility], accompanied by EMS and nursing staff. Pt self transferred from [facility] to bed independently, steady gait noted. Admission assessment completed. Pt here fro DKA/elevated blood sugar. Pt recently started on Dexamethasone for possible Covid, was tested on Tuesday & had a negative test result reported today, also stated that symptoms have now resolved. Pt placed on Telemetry, S.Tach noted on monitor. Health history and home medications reviewed with pt. SCDs for VTE. Pt refused flu vaccine, wants to get from PCP. Wears CPAP at HS, brought here to hospital. RT consulted for smoking cessation. Pt was given written information regarding hospital policies, unit procedures and contact persons. Valuables were checked and left at bedside. Dr French called, orders received - Hold off on starting insulin gtt, place on SSI #3 with POCT AC/HS, recheck labs at midnight and in AM, place on electrolyte protocol, IVFs, IV Morphine PRN and HS medications that needs tonight.
--- NOTE | 2020-07-09 21:00 | NUR ---
ER was called and it was confirmed with DAVID Hearn RN that the Pt did received 1gm of Rocephin in ER.
[2020-07-09] MEDS: MORPHINE SULFATE 2 MG/ML DISP.SYRIN. IV PRN (21:36)
[2020-07-09] MEDS: IV NORMAL SALINE 1,000ML 1,000 ML IV SCH (21:36)
[2020-07-09] MEDS: INSULIN LISPRO 300 UNITS/3 ML VIAL. SQ SCH (21:38)
[2020-07-09 22:00] VITALS: BP 105/62
[2020-07-09] MEDS ORDERED: DEXA6TAB PO (22:11)
[2020-07-09] MEDS ORDERED: FERR-36 PO (22:11)
[2020-07-09] MEDS ORDERED: GABA-586 PO (22:11)
[2020-07-09] MEDS ORDERED: QUET50TA PO (22:11)
[2020-07-09] MEDS ORDERED: BUPR100T8 PO (22:11)
[2020-07-09] MEDS ORDERED: EMPA10TA PO (22:11)
[2020-07-09] MEDS ORDERED: GABAPENTIN 300 MG CAPSULE. PO ONE (22:15)
[2020-07-09] MEDS ORDERED: QUEtiapine 100 MG TABLET. PO ONE (22:15)
[2020-07-09] MEDS ORDERED: ALPRAZolam 0.5 MG TABLET PO PRN (22:15)
[2020-07-09 23:00] VITALS: BP 103/49
[2020-07-10] VITALS (11 sets, daily range): BP systolic 87–125; BP diastolic 50–71
[2020-07-10 01:42] LABS: CALCIUM 9.4 mg/dL (8.5-10.1); CREATININE 0.8 mg/dL (0.6-1.0); GFR 79.4; POTASSIUM 4.4 mmol/L (3.5-5.1)
[2020-07-10] MEDS: IV NORMAL SALINE 1,000ML 1,000 ML IV SCH ×2 (02:22→07:15)
[2020-07-10 06:19] LABS: BASO % 0 % (0-3); EOS % 0 % (0-3); HEMATOCRIT 40.2 % (36.0-47.0); HEMOGLOBIN 13.2 g/dL (12.0-15.5); LYMPH # 1.2 x10^3/uL (1.0-4.8); LYMPH % 7 % (24-48); MEAN CORPUSCULAR HEMOGLOBIN 30 pg (25-35); MEAN CORPUSCULAR HGB CONC 33 g/dL (31-37); MEAN CORPUSCULAR VOLUME 90 fL (79-100); MONO # 0.7 x10^3/uL (0.0-1.1); MONO % 4 % (0-9); NEUT # 15.6 x10^3uL (1.8-7.7); NEUT % 89 % (31-73); PLATELET COUNT 207 x10^3/uL (140-400); RED BLOOD COUNT 4.46 x10^6/uL (3.50-5.40); RED CELL DISTRIBUTION WIDTH 16.9 % (11.5-14.5); WHITE BLOOD COUNT 17.5 x10^3/uL (4.0-11.0)
[2020-07-10 06:35] LABS: ALBUMIN 3.1 g/dL (3.4-5.0); ALBUMIN/GLOBULIN RATIO 0.8 (1.0-1.7); CALCIUM 8.8 mg/dL (8.5-10.1); CREATININE 0.8 mg/dL (0.6-1.0); GFR 79.4; POTASSIUM 4.1 mmol/L (3.5-5.1); TOTAL BILIRUBIN 0.3 mg/dL (0.2-1.0); TOTAL PROTEIN 6.9 g/dL (6.4-8.2)
[2020-07-10] MEDS: INSULIN LISPRO 300 UNITS/3 ML VIAL. SQ SCH ×2 (07:45→12:12)
[2020-07-10] MEDS ORDERED: APIXABAN 2.5 MG TABLET PO SCH (09:00)
[2020-07-10] MEDS ORDERED: NON FORMULARY ITEM (Empagliflozin (Jardiance) 10 MG) PO SCH (09:00)
[2020-07-10] MEDS ORDERED: NON FORMULARY ITEM (Alprazolam (Xanax) 2 MG) PO SCH (09:00)
[2020-07-10] MEDS ORDERED: DEXAMETHASONE 6 MG PO SCH (09:00)
[2020-07-10] MEDS ORDERED: INSULIN GLARGINE SYRINGE. SQ SCH (09:30)
[2020-07-10] MEDS ORDERED: PANTOPRAZOLE 40 MG TABLET. PO SCH (09:30)
[2020-07-10] MEDS ORDERED: DESVENLAFAXINE 50 MG TAB.ER.24H. PO SCH (09:30)
[2020-07-10] MEDS ORDERED: ONDANSETRON ODT 4 MG TAB.RAPDIS PO PRN (09:30)
[2020-07-10] MEDS: MORPHINE SULFATE 2 MG/ML DISP.SYRIN. IV PRN (09:45)
[2020-07-10] MEDS ORDERED: buPROPion SR 100 MG TABLET.SA. PO SCH (10:00)
[2020-07-10] MEDS ORDERED: FERROUS SULFATE 325 MG TABLET. PO SCH (10:00)
[2020-07-10 10:03] LABS: CALCIUM 9.1 mg/dL (8.5-10.1); CREATININE 0.8 mg/dL (0.6-1.0); GFR 79.4; POTASSIUM 4.1 mmol/L (3.5-5.1)
[2020-07-10 11:18] LABS: BACTERIA,URINE 0 /HPF (0-FEW); BILIRUBIN,URINE NEG (NEG); CLARITY,URINE CLEAR; COLOR,URINE YELLOW; GLUCOSE,URINE >=1000 mg/dL (NEG); NITRITE,URINE NEG (NEG); RBC,URINE OCC /HPF (0-2); SQUAMOUS EPITHELIAL CELL,UR FEW /LPF; UROBILINOGEN,URINE 0.2 mg/dL (0.2 mg/dL); YEAST,URINE PRESENT /HPF
--- NOTE | 2020-07-10 11:39 | RAD ---
Axial CT images of the abdomen and pelvis with coronal and sagittal reformats were performed without contrast per renal colic protocol. Exposure: One or more of the following individualized dose reduction techniques were utilized for this examination: 1. Automated exposure control 2. Adjustment of the mA and/or kV according to patient size 3. Use of iterative reconstruction technique Indication: Reason: abd pain llq / Spl. Instructions: / History: Comparison: 05/25/2020. Findings: No renal, ureteral, or bladder stones are identified. No hydronephrosis, perinephric fat stranding, or hydroureter are seen bilaterally. Liver is hypodense relative to the spleen. The appendix is visualized and is unremarkable in appearance. Patient status post hysterectomy. Stable left adrenal myelolipoma The remainder of the non contrasted abdomen and pelvis is normal in appearance, although evaluation is limited on an unenhanced exam. Impression: 1. No evidence of urolithiasis or urinary obstruction. 2. Hepatic steatosis. Electronically signed by: Parker Nino MD (07/10/2020 11:37 AM) [id number]
[2020-07-10] MEDS ORDERED: INSULIN LISPRO 50 UNIT SQ SCH (12:00)
--- NOTE | 2020-07-10 13:10 | NUR ---
Pt stated that she needed to leave the hospital due to her father being taken to the hospital and needing to leave for this situation. Advised patient that she would have to sign AMA form if she were leaving. Pt was compliant to signing. Dr French made aware of patient leaving AMA. Pt signed AMA form. Pt stated "I feel alot better than I did yesterday". Discussed with patient about refilling insulin pump and she stated that she has insulin at home to refill her pump. Pt ambulated out of the unit to the front doors and stated she was going to walk down to her car at the ED parking lot. This nurse advised patient to see if she can get a ride d/t getting IV narcotics while in the hospital this morning around 0945. She stated that she would walk home if need be, does not live far and could not get a ride. Viola MALCOLM Addendum: 07/10/20 at 1328 by VIOLA MORTON RN Notified nursing color control supervisor and security of pt's decision to leave AMA. pt did not wait for security to escort out of hospital.
--- NOTE | 2020-07-10 19:16 | HP ---
ADMIT DATE: 07/09/2020 HISTORY OF PRESENT ILLNESS: This is a 40-year-old female with history of diabetes, came in through the Emergency, had blood sugar greater than 500. The patient possibly had coronavirus, was seen at , placed on steroids. Now her sugars were over 500. She is quite nauseous, abdominal pain and dehydrated. The patient was admitted for further evaluation, IV fluids in bringing down her blood sugars. She also ran out of insulin and could continue on her pump, as result of this, the patient was admitted for fluids and control of her blood sugar. PAST MEDICAL HISTORY: Tonsillectomy, COPD, sleep apnea, CPAP, esophageal varices, diverticulitis, pancreatitis, abdominal surgery, hysterectomy, cholecystectomy, hernia surgery, obesity, GERD, cervical cancer, uterine prolapse, history of breast reduction, hysterectomy, kidney stones, diabetes, hypoglycemia, liver disease, RODRIGUEZ, psychiatric problems, bipolar, depression, anxiety, tobacco abuse. IMMUNIZATIONS: Tetanus and diphtheria vaccine, influenza vaccine. FAMILY HISTORY: Father with diabetes as well as grandmother and father also with atrial fibrillation. ALLERGIES: ADVERSE EFFECTS OF KETOROLAC, LEVOFLOXACIN, SHELLFISH, DERIVED VANCOMYCIN. SOCIAL HISTORY: The patient denies smoking, alcohol or drug use. REVIEW OF SYSTEMS: The patient in general has lethargy, headache, nausea, no vomiting, no chest pain, shortness of breath. Denies abdominal pain. Denies any melena, hematochezia, hematemesis and neurologically at baseline. PHYSICAL EXAMINATION: GENERAL: This is a pleasant white female, in moderate amount of distress. VITAL SIGNS: The patient's blood pressure has been varying at 92/58, respiratory rate 20, pulse 91. She is afebrile. HEENT: The patient's head was atraumatic, normocephalic. Eyes: PERRLA without jaundice. The mouth and throat were normal. NECK: Supple, without JVD, carotid bruits. No thyromegaly. LUNGS: The patient's lungs were diminished throughout, but basically clear. CARDIOVASCULAR: Regular sinus rhythm. ABDOMEN: Soft, nontender, no rebounding or guarding. Positive bowel sounds, no hepatosplenomegaly was noted. EXTREMITIES: No clubbing, cyanosis, nor edema. Beta hCG which is interesting on 1 element, it says her beta hCG was negative. It says urine hCG qualitative was negative. On another maternal beta hCG, it shows good being elevated at 7, so the true why the number is elevated is somewhat of a conundrum since the patient has had a hysterectomy. In any case, the patient was placed on some IV insulin. White count was elevated, probably from her steroids. The patient demanded to be left AMA as her father was having a heart attack and she demanded to be discharged home and make further evaluation on her as an outpatient to get her insulin. She was given insulin and continued to be monitored carefully as indicated as an outpatient. IMPRESSION: Hyperglycemia, contact with COVID-19, but no positive results on such, hypotension. PLAN: As above. Continue to monitor her as an outpatient and make further evaluation per those results. PEDRO PABLO JORDAN MD DR: JOHN/andrés JOB#: [id number] / [id number]
[2020-07-10] MEDS ORDERED: QUEtiapine 100 MG TABLET. PO SCH (21:00)
[2020-07-10] MEDS ORDERED: GABAPENTIN 300 MG CAPSULE. PO SCH (21:00)
[2020-07-11 02:06] LABS: HEMOGLOBIN A1C 8.5 % (4.8-5.6)
== END 2020-07-10 13:10 | disposition left against medical advice (07) | DRG 639 ==
LOC: ER 16:25 → ICU 19:18
PROVIDERS: ADMIT Family Medicine; ATTEND Family Medicine
DX: E11.10 Type 2 diabetes mellitus with ketoacidosis without coma (principal); Z87.891 Personal history of nicotine dependence; Z90.710 Acquired absence of both cervix and uterus; Z88.8 Allergy status to other drugs, medicaments and biological substances; Z91.013 Allergy to seafood; F32.9 Major depressive disorder, single episode, unspecified; F41.9 Anxiety disorder, unspecified; Z20.828 Contact with and (suspected) exposure to other viral communicable diseases; I95.9 Hypotension, unspecified; Z53.29 Procedure and treatment not carried out because of patient's decision for other reasons
CPT/HCPCS: 36415; 71045; 74176; 80048; 80053; 81001; 81025; 82550; 82947; 83036; 83615; 84702; 85007; 85025; 85379; 86140; 87040; 96360; 99406; J1815; J2270; J2405; Q0162; 99285-25; J7030

== ENCOUNTER 2020-08-11 19:54 | Inpatient (IN) | payer BC ==
[~2020-08-11] VITALS: Ht 165.1 cm; Wt 88.2 kg
[~2020-08-11 19:54] MED LIST changes: +BUPR100T8 PO; +DEXA6TAB PO; +EMPA10TA PO; +FERR-36 PO; +QUET50TA PO
--- NOTE | 2020-08-11 20:13 | PHYS DOC ---
Past History Past Medical History: Anxiety, Arthritis, Bipolar, COPD, Depression, Diabetes, Fibromyalgia, Gallstones, High Cholesterol, Hypothyroid, Hepatitis, Kidney Infection, Pancreatitis, UTI, Other Additional Past Medical Histor: STAGE 3 RODRIGUEZ, Hidradenitis supperativa,splenomegla Past Surgical History: Cholecystectomy, Hysterectomy, Tonsillectomy, Other Additional Past Surgical Histo: carpal tunnel, hernia, bilateral ankle Past Surgical History Insulin pump, Breast reduction, Bilateral ankle, Smoking: Cigarettes, Less than 1pk/day Alcohol Use: None Drug Use: None General Adult HPI: HPI: ".. I am feeling bad.. I got fever,,, chills... I had some surgery on this Lt arm pit.......1 week ago... I am diabetic.. my fever at home was 104...".. ".. Now am hurting really bad on this Rt. flank..and down low in my abdomen on Rt. ....I am sick...I I am a diabetic,,, when I gets this sick ...my blood sugars are all over the place..." Patient is a 40 year old FEMALE who presents with above history and complaints of fever, chills, myalgia, arthralgia, malaise, headache, severe rt. flank and Rt lower abdomen pain. Patient is tachycardic and febrile. Pt recent s urgery 1 week ago axillary left for hidradenitis .The left axillary surgery site appears to be healing well. There is no obvious marked inflammation drainage or cellulitis. . Patient has long history of multiple ED evaluations for unstable glucose levels both extremely high and extremely low with her diabetes regimens. Pt.does have a insulin pump. Patient currently not on antibiotics. Patient has densely medical history of multiple medical issues. Patient's medical history is significant for diabetes and has an insulin pump, history of RODRIGUEZ liver disease, pancreatitis, sleep apnea, hidradenitis , left adrenal myelo lipoma, chronically elevated AST ALT and alk phos, thrombocytopenia, UTI, chronic pain, fibromyalgia, urinary tract infections, episodes of dehydration. Patient's had multiple surgeries tonsillectomy, hysterectomy, cholecystectomy, hernia repairs, breast reduction surgeries, ankle surgeries, carpal tunnel, insulin pump placement. Patient still smokes cigarettes. Patient does not use alcohol. Patient does have a history of anxiety, depression. Patient's Covid test was negative for her recent left axillary surgery . Patient denies any recent travel outside the [place] area. Patient denies any specific ill contacts. The pt. follows with Addison SUTTON and Dr. French for care. Review of Systems: Review of Systems: Constitutional: History of fever or chills Eyes: Denies change in visual acuity HENT: History of nasal congestion or sore throat Respiratory: History of cough and wheezing Cardiovascular: Denies chest pain or edema GI: Complains of right flank and right lower abdominal pain, nausea,. Denies vomiting, bloody stools or diarrhea : Some complaints of dysuria Musculoskeletal: Some complaints of right lower flank pain. Complains of generalized myalgia and arthralgia Integument: Denies rash Neurologic: Complains of headache,. Denies focal weakness or sensory changes Endocrine: Planes of polyuria Lymphatic: Denies swollen glands Psychiatric: Complains of depression and anxiety Family History: Family History: Diabetes and hypertension. Patient has 3 sisters and 2 brothers. Father has history of diabetes and atrial fibrillation. One sister has diabetes. Current Medications: Current Meds: See nursing for home meds Allergies: Allergies: Allergies Coded Allergies Type Severity Reaction Last Updated Verified ketorolac Allergy Intermediate Itching 05/25/20 Yes levofloxacin Allergy Intermediate 05/25/20 Yes shellfish derived Allergy Intermediate Swelling 05/25/20 Yes vancomycin Allergy Intermediate 05/25/20 Yes Physical Exam: PE: Constitutional: In moderately acute distress, ill appearance. [] HENT: Normocephalic, atraumatic, bilateral external ears normal, oropharynx dry, no oral exudates, nose normal. [] Eyes: PERRLA, EOMI, conjunctiva normal, no discharge. [] Neck: Normal range of motion, no tenderness, supple, no stridor. [] Cardiovascular: Tachycardia heart rate regular rhythm, no murmur [] Lungs & Thorax: Bilateral breath sounds equal at apex with scattered wheezes and basilar crackles with rhonchi. Abdomen: Bowel sounds decreased soft, marked right flank and right lower quadrant tenderness, rebound to the right lower quadrant, old surgery scars,, no pulsatile masses. Insulin pump on right lower abdomen. Obese Skin: Warm, diaphoretic, no erythema, no rash. [] Back: No tenderness, no CVA tenderness. [] Extremities: No tenderness, no cyanosis, no clubbing, ROM intact, ankle edema. Ankle scars. Wrist scars Neurologic: Alert and oriented X 3, moves extremities on request, does have distal sensory,, patient reports no focal deficits. Psychologic: Affect anxious, judgement normal, mood depressed EKG: EKG: My interpretation EKG shows a sinus tachycardia 103 bpm. There is left axis deviation, there is fascicular block. There is no findings of acute STEMI of contralateral changes. EKG is similar to prior EKGs on file. [] Radiology/Procedures: Radiology/Procedures: [address] [address] IMAGING REPORT Signed PATIENT: SANFORD RANDHAWA ACCOUNT: [id number] : 1980 LOCATION: ER AGE: 40 SEX: F EXAM STATUS: REG ER ORD. PHYSICIAN: RICKIE LAMB MD REASON: FEVER, COUGH, RECENT SURGERY PROCEDURE: PORTABLE CHEST 1V EXAM: CHEST 1 VIEW History: Fever, cough COMPARISON: 07/09/2020 TECHNIQUE: Single portable radiograph of the chest FINDINGS: The cardiac silhouette is unremarkable. The lungs are clear bilaterally. The costophrenic sulci are clear and well demarcated. IMPRESSION: No radiographic evidence of an acute cardiopulmonary process. Electronically signed by: Pasha Irwin MD (08/11/2020 9:56 PM) [id number] DICTATED AND SIGNED BY: PASHA IRWIN MD DATE: 08/11/202155 CC: RICKIE LAMB MD; LATHA DIA PA-C ~ [][address] [address] IMAGING REPORT Signed PATIENT: SANFORD RANDHAWA ACCOUNT: [id number] : 1980 LOCATION: ER AGE: 40 SEX: F EXAM STATUS: REG ER ORD. PHYSICIAN: RICKIE LAMB MD REASON: Rt. lower abd. pain x 48 hrs. ,fever, rebound Rt, DM PROCEDURE: CT ABD PELV W/ORAL&IV CONTRAST EXAM: CT ABDOMEN/PELVIS WITH CONTRAST. HISTORY: Fever, lower abdominal pain. TECHNIQUE: Computed tomography of the abdomen and pelvis was performed after the intravenous administration of iodinated contrast. One or more of the following individualized dose reduction techniques were utilized for this examination: 1. Automated exposure control. 2. Adjustment of the mA and/or kV according to patient size. 3. Use of iterative reconstruction technique. COMPARISON: 07/10/2020. FINDINGS: Lung windows through the visualized portions of the bases reveal mild atelectasis. Bone windows reveal no suspicious lesions. The gallbladder is surgically absent. Hypoattenuation of the hepatic parenchyma indicates at least mild diffuse hepatic steatosis. The spleen measures 15 cm. A fat density mass in the left adrenal gland is consistent with a benign myelolipoma and measures 2.7 x 2.6 cm. The right adrenal gland is unremarkable. The pancreas and kidneys are unremarkable. There is mild urothelial thickening along the ureters. The appendix is not inflamed. There is no small bowel obstruction. There are no pathologically enlarged lymph nodes. The uterus and ovaries are unremarkable. A calcification in the right subcutaneous fat of the right lower quadrant measures 2.2 x 0.9 cm and likely reflect remote fat necrosis. IMPRESSION: 1. No cause for acute pain is identified. 2. Diffuse hepatic steatosis. 3. 2.7 cm benign left adrenal myelolipoma. 4. Mild splenomegaly. 5. Mild urothelial thickening along the ureters. Correlate with urinalysis to exclude ascending infection. Electronically signed by: Julainne Hines MD (08/12/2020 12:57 AM) [facility] Heart Score: HEART Score for Chest Pain: HEART Score for Chest Pain Response (Comments) Value History Slighlty/Non-Suspicious 0 ECG Nonspecific Repolarizatio 1 Age < 45 0 Risk Factors 1 or 2 Risk Factors 1 Troponin < Normal Limit 0 Total 2 Risk Factors: Risk Factors: DM, Current or recent (<one month) smoker, HTN, HLP, family history of CAD, obesity. Risk Scores: Score 0 - 3: 2.5% MACE over next 6 weeks - Discharge Home Score 4 - 6: 20.3% MACE over next 6 weeks - Admit for Clinical Observation Score 7 - 10: 72.7% MACE over next 6 weeks - Early Invasive Strategies Course & Med Decision Making: Course & Med Decision Making Pertinent Labs and Imaging studies reviewed. (See chart for details) Discussed presentation, testing and treatment plan with . Will admit for further evaluation, hydration, IV antibiotics for her pyelonephritis. Plan Doppler ultrasound of legs to evaluate for DVT. Impression: 1. Pyelonephritis right 2. Urinary tract infection 3. Diabetes-has insulin pump 4. Thrombocytopenia 130 5. Elevated D-dimer 5.81 6. Elevated AST ALT and alk phos 7. Elevated CK 489 8. Left adrenal myelo lipoma 9. Splenomegaly 10. Sleep apnea 11. RODRIGUEZ-nonalcoholic Steatohepatitis 12.Hidradenitis Supperativa [] Dragon Disclaimer: Dragon Disclaimer: This electronic medical record was generated, in whole or in part, using a voice recognition dictation system. Departure Departure: Referrals: LATHA DIA PA-C (PCP) Katerine Disclaimer This chart was dictated in whole or in part using Voice Recognition software in a busy, high-work load, and often noisy Emergency Department environment. It may contain unintended and wholly unrecognized errors or omissions. Dragon Disclaimer This chart was dictated in whole or in part using Voice Recognition software in a busy, high-work load, and often noisy Emergency Department environment. It may contain unintended and wholly unrecognized errors or omissions. RICKIE LAMB MD Aug 11, 2020 20:13
[2020-08-11] MEDS ORDERED: IV NORMAL SALINE 1,000ML 1,000 ML IV SCH (20:14)
[2020-08-11] MEDS ORDERED: oxyCODONE/APAP 5/325 1 TAB TABLET PO ONE (20:15)
[2020-08-11 21:16] LABS: BARBITURATES NEG (NEG); BENZODIAZEPINES POS (NEG); CANNABINOIDS NEG (NEG); COCAINE NEG (NEG); METHADONE NEG (NEG); OPIATES POS (NEG); PHENCYCLIDINE NEG (NEG)
[2020-08-11 21:18] LABS: BILIRUBIN,URINE NEG (NEG); CLARITY,URINE HAZY; COLOR,URINE AMBER; GLUCOSE,URINE >=1000 mg/dL (NEG)
[2020-08-11 21:19] LABS: BACTERIA,URINE MANY /HPF (0-FEW); NITRITE,URINE POS (NEG); WBC,URINE >40 /HPF (0-4)
[2020-08-11 21:20] LABS: AMORPHOUS SEDIMENT,UR PRESENT /HPF; SQUAMOUS EPITHELIAL CELL,UR FEW /LPF
[2020-08-11 21:22] LABS: AMPHETAMINE/METHAMPHETAMINE NEG (NEG)
[2020-08-11 21:45] LABS: CREATININE 0.8 mg/dL (0.6-1.0); GFR 79.4; POTASSIUM 3.2 mmol/L (3.5-5.1)
[2020-08-11 21:46] LABS: BASO % 1 % (0-3); EOS # 0.1 x10^3/uL (0.0-0.7); EOS % 1 % (0-3); LYMPH # 0.8 x10^3/uL (1.0-4.8); LYMPH % 11 % (24-48); MEAN CORPUSCULAR HEMOGLOBIN 30 pg (25-35); MEAN CORPUSCULAR HGB CONC 33 g/dL (31-37); MEAN CORPUSCULAR VOLUME 90 fL (79-100); MONO # 0.8 x10^3/uL (0.0-1.1); MONO % 11 % (0-9); NEUT # 5.5 x10^3uL (1.8-7.7); NEUT % 76 % (31-73); PLATELET COUNT 130 x10^3/uL (140-400); RED BLOOD COUNT 4.35 x10^6/uL (3.50-5.40); RED CELL DISTRIBUTION WIDTH 16.5 % (11.5-14.5); WHITE BLOOD COUNT 7.3 x10^3/uL (4.0-11.0)
[2020-08-11] MEDS ORDERED: IV NORMAL SALINE 50ML 50 ML ONE (21:49)
[2020-08-11] MEDS ORDERED: cefTRIAXone SODIUM 1 GM VIAL ONE (21:50)
[2020-08-11 21:58] LABS: DIRECT BILIRUBIN 0.4 mg/dL (0.0-0.2); MAGNESIUM 2.5 mg/dL (1.8-2.4); TOTAL BILIRUBIN 0.9 mg/dL (0.2-1.0); TOTAL PROTEIN 7.3 g/dL (6.4-8.2)
--- NOTE | 2020-08-11 21:59 | RAD ---
EXAM: CHEST 1 VIEW History: Fever, cough COMPARISON: 07/09/2020 TECHNIQUE: Single portable radiograph of the chest FINDINGS: The cardiac silhouette is unremarkable. The lungs are clear bilaterally. The costophrenic sulci are clear and well demarcated. IMPRESSION: No radiographic evidence of an acute cardiopulmonary process. Electronically signed by: Pasha Irwin MD (08/11/2020 9:56 PM) [id number]
[2020-08-11 22:01] LABS: INFLUENZA A PATIENT NEGATIVE (NEGATIVE); INFLUENZA B PATIENT NEGATIVE (NEGATIVE)
[2020-08-11 22:07] LABS: BGAS PH 7.37 (7.35-7.45)
[2020-08-11] MEDS ORDERED: IV RINGERS SOLUTION,LACTATED 1,000 ML IV ONE (22:15)
[2020-08-11] MEDS ORDERED: IOHEXOL 240 MG/ML 50ML VIAL. PO ONE (22:15)
[2020-08-11] MEDS ORDERED: IOHEXOL 300 MG/ML 75 ML VIAL. IV ONE (22:15)
[2020-08-11] MEDS ORDERED: MORPHINE SULFATE 10 MG/ML SYRINGE. SQ ONE (22:30)
[2020-08-11] MEDS ORDERED: diphenhydrAMINE 50 MG/ML VIAL IVP ONE (22:30)
[2020-08-11] MEDS ORDERED: FAMOTIDINE 20 MG/2 ML VIAL IVP ONE (22:30)
--- NOTE | 2020-08-12 01:00 | RAD ---
EXAM: CT ABDOMEN/PELVIS WITH CONTRAST. HISTORY: Fever, lower abdominal pain. TECHNIQUE: Computed tomography of the abdomen and pelvis was performed after the intravenous administration of iodinated contrast. One or more of the following individualized dose reduction techniques were utilized for this examination: 1. Automated exposure control. 2. Adjustment of the mA and/or kV according to patient size. 3. Use of iterative reconstruction technique. COMPARISON: 07/10/2020. FINDINGS: Lung windows through the visualized portions of the bases reveal mild atelectasis. Bone windows reveal no suspicious lesions. The gallbladder is surgically absent. Hypoattenuation of the hepatic parenchyma indicates at least mild diffuse hepatic steatosis. The spleen measures 15 cm. A fat density mass in the left adrenal gland is consistent with a benign myelolipoma and measures 2.7 x 2.6 cm. The right adrenal gland is unremarkable. The pancreas and kidneys are unremarkable. There is mild urothelial thickening along the ureters. The appendix is not inflamed. There is no small bowel obstruction. There are no pathologically enlarged lymph nodes. The uterus and ovaries are unremarkable. A calcification in the right subcutaneous fat of the right lower quadrant measures 2.2 x 0.9 cm and likely reflect remote fat necrosis. IMPRESSION: 1. No cause for acute pain is identified. 2. Diffuse hepatic steatosis. 3. 2.7 cm benign left adrenal myelolipoma. 4. Mild splenomegaly. 5. Mild urothelial thickening along the ureters. Correlate with urinalysis to exclude ascending infection. Electronically signed by: Julianne Hines MD (08/12/2020 12:57 AM) [facility]
[2020-08-12] MEDS ORDERED: ONDANSETRON PF 4 MG/2 ML VIAL. IVP PRN (01:45)
[2020-08-12] MEDS: IV RINGERS SOLUTION,LACTATED 1,000 ML IV SCH ×5 (01:45→21:45)
[2020-08-12 03:00] VITALS: BP 109/72
--- NOTE | 2020-08-12 03:30 | NUR ---
The patient, SANFORD RANDHAWA, 40 y/o, F admitted by PEDRO PABLO JORDAN MD, was given written information regarding hospital policies, unit procedures and contact persons. Valuables were checked and documented. pt vitals are stable. pt is A&O and able to express and concerns she has. pt complained of a headache and received tylenol per order. pt is up ad brandon in room. pt is currently sleeping will continue to monitor.
[2020-08-12] MEDS: ACETAMINOPHEN 325 MG TABLET PO PRN ×3 (03:33→19:43)
[2020-08-12] MEDS ORDERED: HUMALOG (04:43)
[2020-08-12] MEDS ORDERED: IPRATRPIUM/ALBUTEROL 0.5/2.5MG 3 ML NEBU. ONE (05:16)
[2020-08-12] MEDS: IPRATRPIUM/ALBUTEROL 0.5/2.5MG 3 ML NEBU. NEB SCH ×3 (05:19→19:07)
[2020-08-12 05:47] VITALS: BP 93/65
--- NOTE | 2020-08-12 07:43 | EKG ---
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
[2020-08-12] MEDS: ENOXAPARIN ** NOTE DOSE ** SYRINGE SQ SCH ×2 (09:00→21:00)
[2020-08-12] MEDS ORDERED: ALPRAZolam 0.5 MG TABLET PO PRN (09:00)
[2020-08-12] MEDS: buPROPion SR 100 MG TABLET.SA. PO SCH (09:00)
[2020-08-12] MEDS: NON FORMULARY ITEM (Empagliflozin (Jardiance) 10 MG) PO SCH (09:00)
[2020-08-12] MEDS ORDERED: DESVENLAFAXINE SUCCINATE 100 MG PO SCH (09:00)
[2020-08-12] MEDS ORDERED: ZOLPIDEM 5 MG TABLET. PO PRN (09:30)
[2020-08-12] MEDS ORDERED: ELECTROLYTE (NON-ICU) PROTOCOL. MC PRN (09:30)
[2020-08-12] MEDS ORDERED: ONDANSETRON ODT 4 MG TAB.RAPDIS PO PRN (09:30)
--- NOTE | 2020-08-12 09:39 | NUR ---
Respiratory therapy requesting Pt breathing txs be discontinued. Pt was not admitted for Respiratory reasons. Doing well on room air. No complaints of difficulty breathing. No Respiratory history or home meds. CXR normal. Thank you, Keely RESEARCH LAB ASSISTANT.
--- NOTE | 2020-08-12 09:55 | HP ---
ADMIT DATE: 08/12/2020 HISTORY OF PRESENT ILLNESS: The patient is a 40-year-old female, for the last 3-4 days, has been running high temperatures, finally came in through the Emergency Room late last night and was admitted with a diagnosis of pyelonephritis. She has been having fever and chills. She had some recent surgery on her left armpit for an infection. She is a diabetic. She had right flank pain and lower right abdominal pain. She was very sick when she came in. The patient could not really complain of fever, chills, myalgia, but also arthralgias, malaise, headache, severe right flank pain, as noted she was somewhat tachycardic. She had hidradenitis in the left armpit area. The patient otherwise does have an insulin pump. The patient currently not on antibiotics, so she did not come in right away to the Emergency Room or her doctor's office for evaluation. So, she was admitted for pyelonephritis, possible sepsis for IV antibiotic therapy. PAST MEDICAL HISTORY: Tonsillectomy, sleep apnea with CPAP, GERD, diverticulitis, esophageal varices, pancreatitis, hysterectomy, cholecystectomy, hernia surgery, morbid obesity, uterine prolapse, history of cervical cancer, breast reduction, hysterectomy, kidney stones, chronic back pain, hypoglycemia, liver disease, psychiatric problems including bipolar disorder, depression and anxiety. She also has liver disease of the diagnosis of RODRIGUEZ. FAMILY HISTORY: Father with diabetes and AFib, grandmother and mother with diabetes. ALLERGIES: TORADOL, LEVAQUIN, SHELLFISH DERIVED, AND VANCOMYCIN. SOCIAL HISTORY: The patient has about a 20-year pack history of smoking. Occasional alcohol use. Denies any hard drug use. She is a full code. REVIEW OF SYSTEMS: The patient has headaches, nausea, just not feeling well overall. She denies chest pain. She does have shortness of breath. She says she has a diagnosis of COPD. She does have severe abdominal pain, primarily on that right flank, right lower quadrant area and nausea as noted. She has pain on urination. Neurologically, she is alert and oriented. She has some tingling in her feet from her diabetes, which is another significant diagnosis with her insulin pump functioning. PHYSICAL EXAMINATION: GENERAL: This is an ill-appearing white female, morbidly obese. VITAL SIGNS: Blood pressure 110/72, respiratory rate 20, pulse 78, afebrile, 97% oxygen saturation on 2 liters. HEENT: Atraumatic, normocephalic. Eyes: PERRLA without jaundice. The mouth and throat were normal. Poor dentition. NECK: Supple. LUNGS: Diminished throughout, poor movement of air. CARDIOVASCULAR: Regular sinus rhythm. ABDOMEN: Soft, protuberant. There was definite tenderness in the right lower quadrant area, radiating down into the groin area. EXTREMITIES: No clubbing, cyanosis, nor edema. NEUROLOGIC: The patient was alert and oriented x 3 and able to give a good history. Her blood gases were normal. LABORATORY DATA: Her white count was 7.3, platelet count slightly low at 130. Chemistries demonstrated well control of her blood sugar; however, her sodium and potassium of 134 and 3.2, BUN and creatinine of 12 and 0.8, blood sugar 131. Magnesium 2.5, AST of 69, elevated; ALT 64, elevated, alkaline phosphatase elevated at 131. Creatinine kinase 490, elevated. Albumin low at 3. Lipase normal at 52. Her drug screen showed opiates and benzos. Urine showed greater than 40 white blood cells per high powered field, also a lot of sugar in her urine. Influenza group A strep were all negative. Beta hCG was negative. HOME MEDICATIONS: Included ferrous sulfate, gabapentin, ____, Pristiq ER 100 mg a day, Seroquel 400 mg at bedtime, Xanax 2 mg p.r.n. t.i.d., Protonix 40 mg a day, insulin Humalog, Jardiance, Humalog on her pump. In any case, the scans demonstrated chest x-ray was negative for any problems there. The patient's CT abdomen and pelvis did show mild urethral thickening along the ureters, correlate with urinalysis to exclude ascending infection, which would seem to go along with the patient's history of high fever, chills and alike. The patient was started on vancomycin in the ER as well as Rocephin. We will switch that over to Rocephin and Septra-DS. It appears to be a urinary tract infection. She did have an elevated D-dimer of 5.84 and we will do a CTA to rule out any clot as the patient did complain of some shortness of breath. Otherwise, the young lady will be monitored carefully for elevated liver enzymes, which are probably stable. IMPRESSION: Pyelonephritis, history of nonalcoholic steatohepatitis, hyponatremia, hypokalemia, moderate protein malnutrition, morbid obesity, type 1 diabetes, on insulin pump, elevated creatinine. PLAN: As above to continue to monitor, continue with IV antibiotics, IV fluid support. PEDRO PABLO JORDAN MD DR: JOHN/andrés JOB#: [id number] / [id number]
[2020-08-12] MEDS: SMZ/TMP 800/160MG TABLET. PO SCH ×2 (09:57→20:59)
[2020-08-12] MEDS: FERROUS SULFATE 325 MG TABLET. PO SCH (09:57)
[2020-08-12] MEDS: MORPHINE SULFATE 2 MG/ML DISP.SYRIN. IV PRN ×4 (09:58→19:43)
--- NOTE | 2020-08-12 10:24 | NUR ---
NURSING-0900 doses of buproprion, pristiq, and jardiance not available from pharmacy at this time. Discussed waiting to take all 0900 meds at once, or returning once doses became available. Pt chooses to take the available medications, and refuses my return for the additional medications. Education provided, but pt continues to decline stating "I just want to rest."
[2020-08-12 10:35] VITALS: BP 97/63
--- NOTE | 2020-08-12 10:36 | RAD ---
EXAM: Bilateral lower extremity venous Doppler sonogram. HISTORY: Pain and swelling. TECHNIQUE: Arechiga scale and color Doppler sonographic evaluation of the bilateral lower extremity veins with spectral waveform analysis was performed. FINDINGS: There is normal color flow, normal compressibility and there are normal spectral waveforms in the common femoral, superficial femoral, popliteal, posterior tibial and greater saphenous veins. There are bilateral inguinal lymph nodes which maintain benign morphology. These are likely physiologic or reactive in etiology. IMPRESSION: No Doppler evidence of lower extremity deep venous thrombosis. Electronically signed by: Ale Paredes MD (08/12/2020 10:33 AM) [id number]
[2020-08-12] MEDS ORDERED: INSULIN LISPRO 300 UNITS/3 ML VIAL. SQ SCH (12:00)
--- NOTE | 2020-08-12 12:01 | NUR ---
NURSING-spoke with patient regarding FSBS of 101mg/dL and insulin pump. Current basal dosing from pump is 0.8, per pump. Spoke with pharmacy and Lispro order will be discontinued as nursing is not dosing patient at all.
--- NOTE | 2020-08-12 12:33 | NUR ---
NURSING-nebulizer order changed from QID to BID. Pt does have hx of COPD, et MD wants it to continue just less frequently
[2020-08-12] MEDS ORDERED: IOHEXOL 350 MG/ML 100 ML VIAL. IV ONE (13:45)
--- NOTE | 2020-08-12 14:26 | RAD ---
CT ANGIOGRAPHY CHEST INDICATION: Reason: + d dimer and soa / Spl. Instructions: / History: . Comparison: None. TECHNIQUE: Following the uneventful administration of intravenous contrast, 75 cc Isovue-370, axial CT sections were obtained through the lungs and upper abdomen. Multiplanar reconstructions and MIP images were obtained. RS compliance statement: One or more of the following individualized dose reduction techniques were utilized for this examination: 1. Automated exposure control 2. Adjustment of the mA and/or kV according to patient size 3. Use of iterative reconstruction technique FINDINGS: Pulmonary arteries: No evidence of pulmonary thromboembolic disease Lungs and Airways: No pulmonary mass or consolidation. Bibasilar dependent and subsegmental atelectasis. No abnormality of the central airways. Pleura: The pleural spaces are normal. Heart and Mediastinum: The visualized thyroid is normal in size and attenuation. No axillary or supraclavicular lymphadenopathy. No mediastinal, hilar or retrocrural lymphadenopathy. Cardiomegaly. No pericardial effusion. The great vessels of the thorax are normal. Abdomen: Cholecystectomy. Bones and Soft Tissues: The visualized bones and chest wall soft tissues are within normal limits. IMPRESSION: 1. No evidence of pulmonary thromboembolic disease. 2. No pulmonary mass or consolidation. Electronically signed by: Ramon Bahena MD (08/12/2020 2:24 PM) [id number]
[2020-08-12 14:30] VITALS: BP 93/62
--- NOTE | 2020-08-12 17:45 | NUR ---
END of SHIFT Pt is A&O x 4, able to participate in POC. Pt is up ad brandon in the room, without device. O2 at 2L/NC overnight, pt uses CPAP at home. Nebulizer tx decreased from QID to BID. Reports abd pain, utilized PRN IV morphine x3 this shift. LBM 11/2, cont B&B. Skin is CDI. CT angio (-), (B)LE doppler (-) this shift. Pt stated she "feels her fever coming back" several times this shift, but was never febrile on checks. No new issues identified.
[2020-08-12 19:26] VITALS: BP 104/65
[2020-08-12] MEDS: GABAPENTIN 300 MG CAPSULE. PO SCH (20:59)
[2020-08-12] MEDS: LACTOBACILLUS RHAMNOSUS GG 1 CAPSULE. PO SCH (20:59)
[2020-08-12] MEDS: QUEtiapine 100 MG TABLET. PO SCH (21:00)
[2020-08-12 23:29] VITALS: BP 107/66
[2020-08-13 02:09] LABS: HEMOGLOBIN A1C 8.7 % (4.8-5.6)
[2020-08-13] MEDS: IV RINGERS SOLUTION,LACTATED 1,000 ML IV SCH ×5 (02:45→22:45)
[2020-08-13 05:48] VITALS: BP 106/68
[2020-08-13 06:21] LABS: BASO % 1 % (0-3); EOS # 0.1 x10^3/uL (0.0-0.7); EOS % 1 % (0-3); HEMATOCRIT 37.5 % (36.0-47.0); HEMOGLOBIN 12.4 g/dL (12.0-15.5); LYMPH # 1.3 x10^3/uL (1.0-4.8); LYMPH % 24 % (24-48); MEAN CORPUSCULAR HEMOGLOBIN 30 pg (25-35); MEAN CORPUSCULAR HGB CONC 33 g/dL (31-37); MEAN CORPUSCULAR VOLUME 90 fL (79-100); MONO # 0.7 x10^3/uL (0.0-1.1); MONO % 12 % (0-9); NEUT # 3.5 x10^3uL (1.8-7.7); NEUT % 62 % (31-73); PLATELET COUNT 110 x10^3/uL (140-400); RED BLOOD COUNT 4.17 x10^6/uL (3.50-5.40); RED CELL DISTRIBUTION WIDTH 16.9 % (11.5-14.5); WHITE BLOOD COUNT 5.6 x10^3/uL (4.0-11.0)
[2020-08-13 06:30] LABS: CALCIUM 9.1 mg/dL (8.5-10.1); CREATININE 0.8 mg/dL (0.6-1.0); GFR 79.4; POTASSIUM 3.2 mmol/L (3.5-5.1)
[2020-08-13] MEDS: SMZ/TMP 800/160MG TABLET. PO SCH ×2 (08:07→20:10)
[2020-08-13] MEDS: PANTOPRAZOLE 40 MG TABLET. PO SCH (08:07)
[2020-08-13] MEDS: LACTOBACILLUS RHAMNOSUS GG 1 CAPSULE. PO SCH ×2 (08:07→20:10)
[2020-08-13] MEDS: FERROUS SULFATE 325 MG TABLET. PO SCH (08:07)
[2020-08-13] MEDS: buPROPion SR 100 MG TABLET.SA. PO SCH (08:07)
[2020-08-13] MEDS: DESVENLAFAXINE 50 MG TAB.ER.24H. PO SCH (08:08)
[2020-08-13] MEDS: ENOXAPARIN ** NOTE DOSE ** SYRINGE SQ SCH ×2 (08:08→20:10)
[2020-08-13] MEDS: NON FORMULARY ITEM (Empagliflozin (Jardiance) 10 MG) PO SCH (08:11)
--- NOTE | 2020-08-13 08:41 | NUR ---
MEDICATION-Jardiance remains unavailable at this time, not administered with AM medications. LR bag just hung at 0500, so no new administration this AM.
[2020-08-13] MEDS: MORPHINE SULFATE 2 MG/ML DISP.SYRIN. IV PRN ×5 (08:54→20:11)
--- NOTE | 2020-08-13 09:40 | PN ---
DATE: SUBJECTIVE: A 40-year-old female in with sepsis, pyelonephritis. The patient is doing much better. OBJECTIVE: VITAL SIGNS: The patient's pulse has come down, blood pressure 110/68, which has come up, she was down in the 90s, respiratory rate 14, pulse 78, afebrile, presently oxygen of 94% on 2 liters. GENERAL: The patient is alert and oriented. LUNGS: Diminished, but clear. CARDIOVASCULAR: Regular sinus rhythm. ABDOMEN: Soft, nontender. EXTREMITIES: No clubbing, cyanosis, nor edema. NEUROLOGIC: The patient was alert and oriented x 3, but there is still tenderness down there in that right lower quadrant, not quite as bad. There is slight guarding, but no rebounding. Positive bowel sounds. Neurologically intact. The patient otherwise will continue to be monitored. LABORATORY DATA: Potassium still low. She is on electrolyte replacement. Blood sugars are being monitored. No urine cultures have been returned yet. Blood cultures were negative. IMPRESSION: Sepsis, hypotension, pyelonephritis, elevated D-dimer, nonalcoholic steatohepatitis (RODRIGUEZ), hyponatremia, hypokalemia, moderate protein malnutrition, morbid obesity, type 1 diabetes on insulin pump and mild elevation of creatinine. I think she continues on IV antibiotics for another day and the discharge would be safest for this patient with these multiple comorbidities. PEDRO PABLO JORDAN MD DR: JOHN/andrés JOB#: [id number] / [id number]
[2020-08-13] MEDS: IPRATRPIUM/ALBUTEROL 0.5/2.5MG 3 ML NEBU. NEB SCH (09:50)
[2020-08-13 10:31] VITALS: BP 99/62
[2020-08-13 15:24] VITALS: BP 123/79
[2020-08-13 19:57] VITALS: BP 120/72
[2020-08-13] MEDS: QUEtiapine 100 MG TABLET. PO SCH (20:10)
[2020-08-13] MEDS: GABAPENTIN 300 MG CAPSULE. PO SCH (20:11)
[2020-08-13 23:18] VITALS: BP 112/75
[2020-08-14] MEDS: MORPHINE SULFATE 2 MG/ML DISP.SYRIN. IV PRN ×2 (02:16→07:47)
[2020-08-14] MEDS: IV RINGERS SOLUTION,LACTATED 1,000 ML IV SCH ×2 (03:09→07:47)
[2020-08-14 05:26] VITALS: BP 117/75
[2020-08-14 06:40] LABS: CALCIUM 9.1 mg/dL (8.5-10.1); CREATININE 0.7 mg/dL (0.6-1.0); GFR 92.7
[2020-08-14] MEDS ORDERED: POTASSIUM CHLORIDE 20 MEQ TABLET.ER. PO ONE (07:45)
[2020-08-14] MEDS: SMZ/TMP 800/160MG TABLET. PO SCH (07:45)
[2020-08-14] MEDS: FERROUS SULFATE 325 MG TABLET. PO SCH (07:45)
[2020-08-14] MEDS: PANTOPRAZOLE 40 MG TABLET. PO SCH (07:45)
[2020-08-14] MEDS: LACTOBACILLUS RHAMNOSUS GG 1 CAPSULE. PO SCH (07:45)
[2020-08-14] MEDS: buPROPion SR 100 MG TABLET.SA. PO SCH (07:46)
[2020-08-14] MEDS: ENOXAPARIN ** NOTE DOSE ** SYRINGE SQ SCH (07:46)
[2020-08-14] MEDS: DESVENLAFAXINE 50 MG TAB.ER.24H. PO SCH (07:46)
--- NOTE | 2020-08-14 09:49 | NUR ---
NURSING NOTE DISCHARGE PT DISCHARGED HOME VIA AMBULATION ACCOMPANIED BY SELF. PT PICKED UP BY FAMILY MEMBER. PT GIVEN WRITTEN AND VERBAL DISCHARGE INSTRUCTIONS. PT SENT HOME WITH 2 SCRIPTS, ANTIBIOTIC AND PAIN MEDICATION. PT ENCOURAGED TO FOLLOW UP WITH PCP IN 7-10 DAYS OR SOONER IF NEEDED. NO COMPLICATIONS. YUN SMITH.
--- NOTE | 2020-08-14 10:11 | DS ---
DATE OF DISCHARGE: 08/14/2020 HOSPITAL COURSE: A 40-year-old female came in with severe abdominal pain. The patient had been running temperatures for 3-4 days prior to admission. She is a type 1 diabetic, on an insulin pump. She was extremely ill. Complaining of generalized achiness all over and severe right flank pain, seen in the Emergency Room with CT scans performed, demonstrated the necessity of this patient having some type of a problem with pyelonephritis or ureteritis, ureter was swollen and inflamed and consequently would be a verification of her infection. Interestingly, her white count was never particularly elevated and the patient made good progress during the rest of her hospitalization along the outline receiving IV antibiotic therapy. White count was approximately average 6, platelet count did go down to about 110,000. The patient's sodium went down, but she was on electrolyte replacement. Blood gases were normal. Serology was negative for influenza and group A beta hemolytic strep for a sore throat. UA did show greater than 40 white blood cells per high powered field and the patient's urine culture showed Klebsiella pneumoniae in her urine growing out. She had one of her throat and it did not demonstrate anything in particular. IMPRESSION: Pyelonephritis, right thrombocytopenia, type 1 diabetic, hypokalemia. She will be on a diabetic diet. Continue with her insulin, See MRAD and make further evaluation on her as an outpatient. She continued to have some right lower quadrant pain and was given some tramadol for this. She had been taking IV morphine while in the hospital. PEDRO PABLO JORDAN MD DR: JOHN/andrés JOB#: [id number] / [id number]
== END 2020-08-14 09:52 | disposition home or self-care (01) | DRG 872 ==
LOC: ER 19:54 → 1 SOUTH 08-12 02:42
PROVIDERS: ADMIT Family Medicine; ATTEND Family Medicine
DX: A41.9 Sepsis, unspecified organism (principal); E44.0 Moderate protein-calorie malnutrition; E87.1 Hypo-osmolality and hyponatremia; N12 Tubulo-interstitial nephritis, not specified as acute or chronic; B96.1 Klebsiella pneumoniae [K. pneumoniae] as the cause of diseases classified elsewhere; D17.9 Benign lipomatous neoplasm, unspecified; D69.6 Thrombocytopenia, unspecified; E03.9 Hypothyroidism, unspecified; E10.9 Type 1 diabetes mellitus without complications; E66.01 Morbid (severe) obesity due to excess calories; E78.00 Pure hypercholesterolemia, unspecified; E87.6 Hypokalemia; F31.9 Bipolar disorder, unspecified; G47.30 Sleep apnea, unspecified; J44.9 Chronic obstructive pulmonary disease, unspecified; K75.81 Nonalcoholic steatohepatitis (NASH); L73.2 Hidradenitis suppurativa; M79.7 Fibromyalgia; Z79.4 Long term (current) use of insulin; Z82.49 Family history of ischemic heart disease and other diseases of the circulatory system; Z83.3 Family history of diabetes mellitus; Z85.3 Personal history of malignant neoplasm of breast; Z85.41 Personal history of malignant neoplasm of cervix uteri; Z87.891 Personal history of nicotine dependence; Z90.710 Acquired absence of both cervix and uterus; Z96.41 Presence of insulin pump (external) (internal); F41.9 Anxiety disorder, unspecified; G89.29 Other chronic pain; K21.9 Gastro-esophageal reflux disease without esophagitis; M19.90 Unspecified osteoarthritis, unspecified site
CPT/HCPCS: 36415; 36600; 71045; 71275; 74177; 80048; 80076; 80307; 81001; 81025; 82550; 82803; 82947; 83036; 83605; 83690; 83735; 83880; 84443; 84484; 84702; 85025; 85379; 85610; 85730; 87040; 87070; 87077; 87086; 87186; 87804; 87880; 93005; 93970; 94640; 96361; 96365; 96366; 96372; 96375; J0696; J1200; J1650; J1815; J2270; J3490; J7120; Q9966; Q9967; 99285-25; J7030

== ENCOUNTER 2020-09-19 16:51 | Observation (INO) | payer BC ==
[~2020-09-19] VITALS: Ht 162.6 cm; Wt 88.9 kg
[~2020-09-19 16:51] MED LIST changes: +HUMALOG
[2020-09-19] MEDS ORDERED: IV NORMAL SALINE 1,000ML 1,000 ML IV ONE ×2 (18:00→18:30)
[2020-09-19] MEDS ORDERED: ONDANSETRON PF 4 MG/2 ML VIAL. IVP ONE (18:30)
[2020-09-19 18:45] LABS: BASO # 0.1 x10^3/uL (0.0-0.2); BASO % 0 % (0-3); EOS % 0 % (0-3); HEMATOCRIT 46.1 % (36.0-47.0); HEMOGLOBIN 14.9 g/dL (12.0-15.5); LYMPH # 1.6 x10^3/uL (1.0-4.8); LYMPH % 12 % (24-48); MEAN CORPUSCULAR HEMOGLOBIN 30 pg (25-35); MEAN CORPUSCULAR HGB CONC 32 g/dL (31-37); MEAN CORPUSCULAR VOLUME 93 fL (79-100); MONO # 0.6 x10^3/uL (0.0-1.1); MONO % 5 % (0-9); NEUT # 11.3 x10^3uL (1.8-7.7); NEUT % 83 % (31-73); PLATELET COUNT 234 x10^3/uL (140-400); RED BLOOD COUNT 4.98 x10^6/uL (3.50-5.40); RED CELL DISTRIBUTION WIDTH 19.4 % (11.5-14.5); WHITE BLOOD COUNT 13.7 x10^3/uL (4.0-11.0)
[2020-09-19 18:56] LABS: ALBUMIN 3.8 g/dL (3.4-5.0); ALBUMIN/GLOBULIN RATIO 0.9 (1.0-1.7); CALCIUM 9.7 mg/dL (8.5-10.1); GFR 61.4; MAGNESIUM 2.3 mg/dL (1.8-2.4); POTASSIUM 4.1 mmol/L (3.5-5.1); TOTAL BILIRUBIN 0.3 mg/dL (0.2-1.0)
[2020-09-19 19:00] LABS: BACTERIA,URINE 0 /HPF (0-FEW); BILIRUBIN,URINE NEG (NEG); CLARITY,URINE CLEAR; COLOR,URINE COLORLESS; GLUCOSE,URINE >=1000 mg/dL (NEG); NITRITE,URINE NEG (NEG); RBC,URINE 0 /HPF (0-2); UROBILINOGEN,URINE 0.2 mg/dL (0.2 mg/dL); WBC,URINE 0 /HPF (0-4)
--- NOTE | 2020-09-19 19:21 | PHYS DOC ---
Past History Past Medical History: Anxiety, Arthritis, Bipolar, COPD, Depression, Diabetes, Fibromyalgia, Gallstones, High Cholesterol, Hypothyroid, Hepatitis, Kidney Infection, Pancreatitis, UTI, Other Additional Past Medical Histor: STAGE 3 RODRIGUEZ, Hidradenitis supperativa,splenomegla (GREGORY LÓPEZ APRN) Past Surgical History: Cholecystectomy, Hysterectomy, Tonsillectomy, Other Additional Past Surgical Histo: carpal tunnel, hernia, bilateral ankle (GREGORY LÓPEZ APRN) Smoking: Cigarettes, Less than 1pk/day Alcohol Use: None Drug Use: None (GREGORY LÓPEZ APRN) General Adult EDM: Chief Complaint: HYPERGLYCEMIA HPI: HPI: Patient is a 40-year-old female who presents to the emergency department with complaints of high blood sugar and right flank pain today. Patient states that she had a procedure on her nose yesterday by Dr. Mercado who prescribed her a Medrol Dosepak, mupirocin, and hydrocodone. She reports that her blood sugars have been been greater than 500 all day today. She has increased her basal insulin rate to 7 units/h and patient reports that she has used over 227 units of insulin today in her pump. Patient also complains of right flank pain that began this afternoon with increased urine output. She denies any dysuria, hematuria, fever, cough, sore throat, body aches, chills, rash, vomiting, diarrhea, chest pain, palpitations, or shortness of breath. She complains of fatigue and nausea at this time. She currently rates the pain in her nose a 6 out of 10 on the pain scale, and the pain in her right flank a 9 out of 10 on the pain scale, she denies any alleviating or exacerbating factors. (GREGROY LÓPEZ APRN) Review of Systems: Review of Systems: Complete ROS is negative unless otherwise noted in HPI. (GREGORY LÓPEZ APRN) Current Medications: Current Meds: Current Medications Medications (Trade) Dose Ordered Sig/Yoko Start Time Stop Time Status Last Admin Dose Admin Fentanyl Citrate (Fentanyl 2ml Vial) 50 mcg 1X ONCE 09/19/20 18:30 09/19/20 18:32 DC 09/19/20 18:50 50 MCG Ondansetron HCl (Zofran) 4 mg 1X ONCE 09/19/20 18:30 09/19/20 18:32 DC 09/19/20 18:49 4 MG Sodium Chloride 1,000 ml @ 1,000 mls/hr 1X ONCE 09/19/20 18:30 09/19/20 19:29 09/19/20 18:48 1,000 MLS/HR (GREGORY LÓPEZ APRN) Allergies: Allergies: Allergies Coded Allergies Type Severity Reaction Last Updated Verified ketorolac Allergy Intermediate Itching 05/25/20 Yes levofloxacin Allergy Intermediate 05/25/20 Yes shellfish derived Allergy Intermediate Swelling 05/25/20 Yes vancomycin Allergy Intermediate 05/25/20 Yes I S O L A T I O N *CONTACT* Allergy Unknown 08/15/20 Yes (GREGORY LÓPEZ APRN) Physical Exam: PE: See Above Constitutional: Well developed, well nourished, no acute distress, non-toxic appearance. [] HENT: Normocephalic, atraumatic, bilateral external ears normal, nose normal. [] Eyes: PERRLA, EOMI, conjunctiva normal, no discharge. [] Neck: Normal range of motion, no stridor. [] Cardiovascular:Heart rate regular rhythm Lungs & Thorax: Respirations even and unlabored, no retractions, no respiratory distress Abdomen: soft, right flank tenderness to palpation, no rebound tenderness, no guarding, no palpable masses Skin: Warm, dry, no erythema, no rash. [] Extremities: No cyanosis, ROM intact, no edema. [] Neurologic: Alert and oriented X 3, no focal deficits noted. [] Psychologic: Affect normal, judgement normal, mood anxious (GREGORY LÓPEZ APRN) Current Patient Data: Labs: Laboratory Tests Test 09/19/20 18:15 09/19/20 18:18 Urine Collection Type Unknown Urine Color Colorless Urine Clarity Clear Urine pH 5.0 Urine Specific [place] 1.010 Urine Protein Neg (NEG-TRACE) Urine Glucose (UA) >=1000 mg/dL (NEG) Urine Ketones (Stick) Neg mg/dL (NEG) Urine Blood Trace (NEG) Urine Nitrite Neg (NEG) Urine Bilirubin Neg (NEG) Urine Urobilinogen Dipstick 0.2 mg/dL (0.2 mg/dL) Urine Leukocyte Esterase Neg (NEG) Urine RBC 0 /HPF (0-2) Urine WBC 0 /HPF (0-4) Urine Squamous Epithelial Cells None /LPF Urine Bacteria 0 /HPF (0-FEW) POC Venous pH 7.35 (7.32-7.42) POC Venous pCO2 47 mmHg (41-51) POC Venous pO2 32 mmHg (20-40) Venous Blood HCO3 26 mmol/L (24-28) POC Venous O2 Saturation (Ina) 59 % POC FiO2 21 White Blood Count 13.7 x10^3/uL (4.0-11.0) H Red Blood Count 4.98 x10^6/uL (3.50-5.40) Hemoglobin 14.9 g/dL (12.0-15.5) Hematocrit 46.1 % (36.0-47.0) Mean Corpuscular Volume 93 fL (79-100) Mean Corpuscular Hemoglobin 30 pg (25-35) Mean Corpuscular Hemoglobin Concent 32 g/dL (31-37) Red Cell Distribution Width 19.4 % (11.5-14.5) H Platelet Count 234 x10^3/uL (140-400) Neutrophils (%) (Auto) 83 % (31-73) H Lymphocytes (%) (Auto) 12 % (24-48) L Monocytes (%) (Auto) 5 % (0-9) Eosinophils (%) (Auto) 0 % (0-3) Basophils (%) (Auto) 0 % (0-3) Neutrophils # (Auto) 11.3 x10^3uL (1.8-7.7) H Lymphocytes # (Auto) 1.6 x10^3/uL (1.0-4.8) Monocytes # (Auto) 0.6 x10^3/uL (0.0-1.1) Eosinophils # (Auto) 0.0 x10^3/uL (0.0-0.7) Basophils # (Auto) 0.1 x10^3/uL (0.0-0.2) Sodium Level 136 mmol/L (136-145) Potassium Level 4.1 mmol/L (3.5-5.1) Chloride Level 100 mmol/L (98-107) Carbon Dioxide Level 27 mmol/L (21-32) Anion Gap 9 (6-14) Blood Urea Nitrogen 14 mg/dL (7-20) Creatinine 1.0 mg/dL (0.6-1.0) Estimated GFR (Cockcroft-Gault) 61.4 BUN/Creatinine Ratio 14 (6-20) Glucose Level 520 mg/dL (70-99) *H Calcium Level 9.7 mg/dL (8.5-10.1) Magnesium Level 2.3 mg/dL (1.8-2.4) Total Bilirubin 0.3 mg/dL (0.2-1.0) Aspartate Amino Transferase (AST) 38 U/L (15-37) H Alanine Aminotransferase (ALT) 121 U/L (14-59) H Alkaline Phosphatase 141 U/L (46-116) H Total Protein 8.0 g/dL (6.4-8.2) Albumin 3.8 g/dL (3.4-5.0) Albumin/Globulin Ratio 0.9 (1.0-1.7) L Acetone Level Neg (NEG) Vital Signs: Vital Signs Date Time Temp Pulse Resp B/P (MAP) Pulse Ox O2 Delivery O2 Flow Rate FiO2 09/19/20 18:53 90 30 108/68 (81) 93 Room Air (GREGORY LÓPEZ APRN) EKG: EKG: [] (GREGORY LÓPEZ APRN) Radiology/Procedures: Radiology/Procedures: PROCEDURE: CT ABD PELV W/ IV CONTRST ONLY Exam: CT of abdomen and pelvis with contrast INDICATION: Right flank pain TECHNIQUE: Sequential axial images through the abdomen and pelvis obtained following the administration of 75 mL of Isovue-370 IV contrast. Sagittal and coronal reformatted images were reconstructed from the axial data and reviewed. Comparisons: 08/11/2020 FINDINGS: Heart size is normal. No pericardial visualized lung bases are clear effusion. Diffuse hepatic steatosis. Spleen is enlarged measuring 15.4 cm in long axis. Pancreas and adrenals are unremarkable. Gallbladder is absent. Kidneys demonstrate symmetric enhancement. No perinephric inflammation or hydronephrosis. No renal or ureteral calculi are identified. Bladder is distended and appears thin-walled. Uterus is nonenlarged. No abnormal adnexal mass. Large and small bowel are unremarkable. Appendix is normal. No free intra- abdominal air or fluid. No obstruction. Abdominal aorta has a normal course and caliber. Abdominal vasculature is patent. No enlarged abdominal lymph nodes are identified. No suspicious osseous lesions or acute fractures. IMPRESSION: 1. Diffuse hepatic steatosis. 2. Otherwise, no acute process identified within the abdomen or pelvis.[] (GREGORY LÓPEZ APRN) Heart Score: Risk Factors: Risk Factors: DM, Current or recent (<one month) smoker, HTN, HLP, family history of CAD, obesity. Risk Scores: Score 0 - 3: 2.5% MACE over next 6 weeks - Discharge Home Score 4 - 6: 20.3% MACE over next 6 weeks - Admit for Clinical Observation Score 7 - 10: 72.7% MACE over next 6 weeks - Early Invasive Strategies (GREGORY LÓPEZ APRN) Course & Med Decision Making: Course & Med Decision Making Pertinent Labs and Imaging studies reviewed. (See chart for details) 1915-spoke with Dr. French who is the admitting physician, and care was assumed following discussion of patient. Will admit patient to [facility] for hyperglycemia and right flank pain. I advised him that the CT abdomen pelvis was just ordered, I will notify him of any acute results. Patient's vital signs stable. Patient remains afebrile, appears nontoxic, respirations even and unlabored. Patient will be admitted to the medical/surgical floor. Patient's case and plan of care also discussed with Dr. Bruno [] (GREGORY LÓPEZ APRN) Katerine Disclaimer: Katerine Disclaimer: This electronic medical record was generated, in whole or in part, using a voice recognition dictation system. (GREGORY LÓPEZ APRN) Departure Departure: Impression: Primary Impression: Hyperglycemia Additional Impression: Acute right flank pain Disposition: ADMITTED INPT THIS HOSP Admitting Physician: Navneet French (GREGORY LÓPEZ AUDIO TAPE LIBRARIAN) Condition: STABLE Referrals: LATHA DIA PA-C (PCP) Katerine Disclaimer This chart was dictated in whole or in part using Voice Recognition software in a busy, high-work load, and often noisy Emergency Department environment. It may contain unintended and wholly unrecognized errors or omissions. (RICKIE BRUNO MD) Attending Signature Attending Signature I have participated in the care of this patient and I have reviewed and agree with all pertinent clinical information above including history, exam, and recommendations. (RICKIE BRUNO MD) GREGORY LÓPEZ APRN Sep 19, 2020 19:21 RICKIE BRUNO MD Sep 20, 2020 05:38
[2020-09-19] MEDS ORDERED: IOHEXOL 300 MG/ML 75 ML VIAL. IV ONE (19:30)
[2020-09-19] MEDS ORDERED: ONDANSETRON PF 4 MG/2 ML VIAL. IVP PRN (19:30)
--- NOTE | 2020-09-19 20:47 | RAD ---
Exam: CT of abdomen and pelvis with contrast INDICATION: Right flank pain TECHNIQUE: Sequential axial images through the abdomen and pelvis obtained following the administrati on of 75 mL of Isovue-370 IV contrast. Sagittal and coronal reformatted images were reconstructed fro m the axial data and reviewed. Comparisons: 08/11/2020 FINDINGS: Heart size is normal. No pericardial visualized lung bases are clear effusion. Diffuse hepatic steatosis. Spleen is enlarged measuring 15.4 cm in long axis. Pancreas and adrenals a re unremarkable. Gallbladder is absent. Kidneys demonstrate symmetric enhancement. No perinephric inflammation or hydronephrosis. No renal or ureteral calculi are identified. Bladder is distended and appears thin-walled. Uterus is nonenlarged. No abnormal adnexal mass. Large and small bowel are unremarkable. Appendix is normal. No free intra-abdominal air or fluid. No obstruction. Abdominal aorta has a normal course and caliber. Abdominal vasculature is patent. No enlarged abdominal lymph nodes are identified. No suspicious osseous lesions or acute fractures. IMPRESSION: 1. Diffuse hepatic steatosis. 2. Otherwise, no acute process identified within the abdomen or pelvis. Exposure: One or more of the following in the visualized dose reduction techniques were utilized for this examination: 1. Automated exposure control 2. Adjustment of the MA and/or KV according to patient size 3. Use of iterative of reconstructive technique Electronically signed by: Martha Ulloa MD (09/19/2020 8:45 PM) [facility]
--- NOTE | 2020-09-19 22:30 | NUR ---
The patient, SANFORD RANDHAWA, 40 y/o, F admitted by PEDRO PABLO JORDAN MD, to room 117, was given written information regarding hospital policies, unit procedures and contact persons. Valuables were checked and left with the patient. Medical history, medication use and assessments discussed. Pt expresses pain 8/10 in right flank radiating to lower back. Pt refused lidocaine patches insisting they never work for her. She believes this pain is different than her usual liver pain. Pt has her own blood glucose monitor and insulin pump attached and running. Pt denied nausea and requested cheese and crackers and pudding as a snack. She is resting in bed listening to music. Will continue to monitor.
[2020-09-19] MEDS: LIDOCAINE (700MG/PATCH) PATCH. TD SCH (23:30)
[2020-09-19 23:32] VITALS: BP 105/65
--- NOTE | 2020-09-20 03:48 | NUR ---
Pt refused lidoderm patch for pain and requested only fentanyl during last dose about 2229. Pt requested another dose of pain medication for pain in right flank 05/19. While patient answered the pain rating question, she began snoring. Pt slept off and on this night, also spending time using the phone. Pt often sleeping on right side or back. Will continue to monitor.
[2020-09-20 06:05] VITALS: BP 97/61
[2020-09-20] MEDS ORDERED: METH4TAB6 PO (06:23)
[2020-09-20] MEDS: LIDOCAINE (700MG/PATCH) PATCH. TD SCH (08:11)
[2020-09-20] MEDS: MUPIROCIN 2% TOPICAL OINTMENT 22GM TUBE. TP SCH ×2 (08:12→21:00)
[2020-09-20] MEDS ORDERED: METHYLPREDNISOLONE 4 MG PO SCH (09:45)
[2020-09-20] MEDS ORDERED: INSULIN LISPRO 300 UNITS/3 ML VIAL. SQ SCH ×2 (09:45→12:00)
[2020-09-20] MEDS ORDERED: ALPRAZolam 0.5 MG TABLET PO SCH (10:00)
[2020-09-20 10:39] VITALS: BP 99/65
[2020-09-20] MEDS: methylPREDNISolone 4 MG TABLET. PO SCH ×4 (11:55→21:08)
[2020-09-20] MEDS: EMPAGLIFLOZIN 10 MG TABLET. PO SCH (11:56)
[2020-09-20] MEDS: DESVENLAFAXINE 50 MG TAB.ER.24H. PO SCH (11:56)
[2020-09-20] MEDS: buPROPion SR 100 MG TABLET.SA. PO SCH (11:56)
[2020-09-20 14:35] VITALS: BP 103/63
[2020-09-20] MEDS: GABAPENTIN 300 MG CAPSULE. PO SCH ×2 (15:19→21:08)
--- NOTE | 2020-09-20 18:31 | HP ---
ADMIT DATE: 09/19/2020 HISTORY OF PRESENT ILLNESS: A 40-year-old female who comes in with high blood sugar, right flank pain. The patient notes she has had a procedure recently at ENT, Medrol Dosepak and so forth on her sinuses. Her sugars have been greater than 500. She is on a pump and consequently, she has not been able to bring it down under 500. The right flank pain beginning increase with urine output. She denies any dysuria or hematuria, although she has had previous history of kidney stones, so she may have already passed one. In any case, the patient complains of generalized fatigue, nausea and severe right flank pain, 6-7/10. She has problems with anti-inflammatory medications, although the right flank pain with exacerbation as 06/19. The patient otherwise was admitted for consideration of getting her blood sugars down as well as her flank pain management and evaluate that as well. PAST MEDICAL HISTORY: Include she had a nasal surgery, sleep apnea with CPAP, diverticulitis, pancreatitis, cholecystectomy, hysterectomy, hernia surgery, GERD, reproductive disorders, uterine prolapse, history of cervical cancer, breast reduction, kidney stones, back pain, hypoglycemia, chronic stage type 2 diabetes with Dexcom sensor, liver disease, RODRIGUEZ, psychiatric problems, bipolar, depression. Influenza is up-to-date. FAMILY HISTORY: Diabetes in the father and mother. Atrial fib in the father. ALLERGIES: ADVERSE REACTIONS TO NONSTEROIDAL MEDICATIONS, KETOROLAC, LEVOFLOXACIN, SHELLFISH, VANCOMYCIN. SOCIAL HISTORY: The patient denies smoking, alcohol or drug use and is a full code. REVIEW OF SYSTEMS: Severe right flank pain as noted 8-10 made worse with movement. The patient also notes the fact that she denies any chest pain, shortness of breath. The patient otherwise denies any melena, hematochezia, or hematemesis. Does note some dysuria and has had previous history of kidney stones in the past. The patient otherwise neurologically intact, although does seem to have significant pain there. PHYSICAL EXAMINATION: GENERAL: This is a pleasant white female, moderate amount of distress. VITAL SIGNS: Blood pressure 99/65, respiratory rate 20, pulse 80, afebrile. NEUROLOGIC: The patient is alert and oriented x 3. Speech fluent, spontaneous, appropriate. Mouth and throat were basically normal. Eyes: PERRLA, without jaundice. LUNGS: Diminished, but clear. CARDIOVASCULAR: Regular sinus rhythm, S1, S2. ABDOMEN: Protuberant, soft, but definite tenderness in the right mid to lower quadrant areas. The patient has slight guarding, but no rebounding, but her pupils do constrict and she becomes quite irritated, palpation of that right lower mid quadrant areas. EXTREMITIES: Without clubbing, cyanosis, nor edema. NEUROLOGIC: The patient is alert and oriented x 3. LABORATORY DATA: The patient's white count elevated to about approximately 14, hemoglobin and hematocrit 14 and 46. The patient's chemistries did show sugar of 520, 136, 4.1, BUN and creatinine 14 and 1. Although her liver enzymes elevated 38, 121 and 141. The patient otherwise acetones were negative. Urine specific gravity stable obviously still in great deal of blood sugar. IMPRESSION: Hyperglycemia with poor control, have recent nasal surgery using steroids per ENT, a history of nonalcoholic steatohepatitis, severe right flank and right lower quadrant pain, may have passed a stone. The patient has type 2 diabetes with insulin pump, poor control as indicated. Leukocytosis, hepatic steatosis. PLAN: The patient will be under pain control, IV fluids and try to maintain her blood sugar down to a reasonable level considering the fact that she apparently has to use a steroid taper for her nasal surgery that was performed at an outside facility obviously. PEDRO PABLO JORDAN MD DR: JOHN/andrés JOB#: [id number] / [id number]
[2020-09-20 19:04] VITALS: BP 100/58
[2020-09-20] MEDS ORDERED: QUEtiapine 100 MG TABLET. PO SCH (21:00)
[2020-09-20] MEDS ORDERED: PATCH REMOVAL. MC SCH (21:00)
[2020-09-20 23:15] VITALS: BP 109/77
[2020-09-21 05:22] VITALS: BP 108/72
[2020-09-21 05:36] LABS: BASO # 0.1 x10^3/uL (0.0-0.2); BASO % 1 % (0-3); EOS # 0.1 x10^3/uL (0.0-0.7); EOS % 1 % (0-3); HEMATOCRIT 46.4 % (36.0-47.0); HEMOGLOBIN 15.2 g/dL (12.0-15.5); LYMPH % 19 % (24-48); MEAN CORPUSCULAR HEMOGLOBIN 30 pg (25-35); MEAN CORPUSCULAR HGB CONC 33 g/dL (31-37); MEAN CORPUSCULAR VOLUME 92 fL (79-100); MONO # 0.6 x10^3/uL (0.0-1.1); MONO % 6 % (0-9); NEUT # 7.4 x10^3uL (1.8-7.7); NEUT % 72 % (31-73); PLATELET COUNT 194 x10^3/uL (140-400); RED BLOOD COUNT 5.02 x10^6/uL (3.50-5.40); RED CELL DISTRIBUTION WIDTH 19.4 % (11.5-14.5); WHITE BLOOD COUNT 10.3 x10^3/uL (4.0-11.0)
[2020-09-21 05:44] LABS: CALCIUM 9.3 mg/dL (8.5-10.1); CREATININE 0.8 mg/dL (0.6-1.0); GFR 79.4; POTASSIUM 3.6 mmol/L (3.5-5.1)
[2020-09-21] MEDS ORDERED: PANTOPRAZOLE 40 MG TABLET. PO SCH (07:30)
[2020-09-21] MEDS: GABAPENTIN 300 MG CAPSULE. PO SCH (08:18)
[2020-09-21] MEDS: EMPAGLIFLOZIN 10 MG TABLET. PO SCH (08:19)
[2020-09-21] MEDS: MUPIROCIN 2% TOPICAL OINTMENT 22GM TUBE. TP SCH (08:19)
[2020-09-21] MEDS: LIDOCAINE (700MG/PATCH) PATCH. TD SCH (08:19)
[2020-09-21] MEDS: buPROPion SR 100 MG TABLET.SA. PO SCH (08:19)
[2020-09-21] MEDS: DESVENLAFAXINE 50 MG TAB.ER.24H. PO SCH (08:20)
[2020-09-21] MEDS ORDERED: methylPREDNISolone 4 MG TABLET. PO SCH (09:00)
[2020-09-21 11:06] VITALS: BP 135/79
[2020-09-21] MEDS ORDERED: traMADol 50 MG TABLET PO PRN (11:45)
[2020-09-21] MEDS ORDERED: TRAM50TA PO (12:09)
--- NOTE | 2020-09-21 12:32 | NUR ---
PATIENT IS DISCHARGED HOME WITH SELF CARE. PATIENT IS GIVEN ALL DISCHARGE AND FOLLOW UP INSTRUCTIONS. PATIENTS IV IS REMOVED AND IS STABLE AT TIME OF DISCHARGE. PATIENT AMBULATED OFF OF UNIT ACCOMPANIED BY STAFF.
[2020-09-22] MEDS ORDERED: methylPREDNISolone 4 MG TABLET. PO SCH (09:00)
[2020-09-23] MEDS ORDERED: methylPREDNISolone 4 MG TABLET. PO SCH (09:00)
[2020-09-23] MEDS ORDERED: fentaNYL 50MCG/HR 1 PATCH PATCH TD SCH (09:00)
== END 2020-09-21 12:32 | disposition home or self-care (01) ==
LOC: ER 16:51 → INTOOBSV 19:16 → 1 SOUTH 19:16
PROVIDERS: ADMIT Family Medicine; ATTEND Family Medicine
DX: E11.65 Type 2 diabetes mellitus with hyperglycemia (principal); J44.9 Chronic obstructive pulmonary disease, unspecified; M19.90 Unspecified osteoarthritis, unspecified site; F41.9 Anxiety disorder, unspecified; F32.9 Major depressive disorder, single episode, unspecified; E78.00 Pure hypercholesterolemia, unspecified; E03.9 Hypothyroidism, unspecified; K75.81 Nonalcoholic steatohepatitis (NASH); I10 Essential (primary) hypertension; E78.5 Hyperlipidemia, unspecified; D72.829 Elevated white blood cell count, unspecified; G47.30 Sleep apnea, unspecified; F17.210 Nicotine dependence, cigarettes, uncomplicated; Z90.49 Acquired absence of other specified parts of digestive tract; Z90.710 Acquired absence of both cervix and uterus; Z79.4 Long term (current) use of insulin; Z85.3 Personal history of malignant neoplasm of breast; Z85.41 Personal history of malignant neoplasm of cervix uteri
CPT/HCPCS: 36415; 74177; 80048; 80053; 81001; 82010; 82803; 82947; 83036; 83690; 83735; 85025; 96361; 96374; 96375; 96376; 99285; G0378; J2405; J3010; J7030; J7509; Q9967; G0379

== ENCOUNTER 2020-09-29 21:37 | Emergency (ER) | payer BC ==
[~2020-09-29] VITALS: Ht 162.6 cm; Wt 90.2 kg
[~2020-09-29 21:37] MED LIST changes: +METH4TAB6 PO; +PATCH REMOVAL. MC SCH; +TRAM50TA PO
[2020-09-29 22:48] LABS: BASO # 0.1 x10^3/uL (0.0-0.2); BASO % 1 % (0-3); EOS # 0.1 x10^3/uL (0.0-0.7); EOS % 1 % (0-3); HEMATOCRIT 43.5 % (36.0-47.0); HEMOGLOBIN 14.3 g/dL (12.0-15.5); LYMPH # 2.2 x10^3/uL (1.0-4.8); LYMPH % 22 % (24-48); MEAN CORPUSCULAR HEMOGLOBIN 30 pg (25-35); MEAN CORPUSCULAR HGB CONC 33 g/dL (31-37); MEAN CORPUSCULAR VOLUME 92 fL (79-100); MONO # 0.6 x10^3/uL (0.0-1.1); MONO % 6 % (0-9); NEUT # 7.2 x10^3uL (1.8-7.7); NEUT % 70 % (31-73); PLATELET COUNT 229 x10^3/uL (140-400); RED BLOOD COUNT 4.72 x10^6/uL (3.50-5.40); RED CELL DISTRIBUTION WIDTH 18.3 % (11.5-14.5); WHITE BLOOD COUNT 10.3 x10^3/uL (4.0-11.0)
[2020-09-29 22:54] LABS: BILIRUBIN,URINE NEG (NEG); CLARITY,URINE CLEAR; COLOR,URINE YELLOW; GLUCOSE,URINE >=1000 mg/dL (NEG); NITRITE,URINE POS (NEG); UROBILINOGEN,URINE 0.2 mg/dL (0.2 mg/dL)
[2020-09-29 22:55] LABS: BACTERIA,URINE FEW /HPF (0-FEW); RBC,URINE 0 /HPF (0-2); SQUAMOUS EPITHELIAL CELL,UR OCC /LPF
--- NOTE | 2020-09-29 22:58 | RAD ---
Study: XR CHEST 1V Indication: Hyperglycemia. Comparison: 08/11/2020 Findings: Unchanged/unremarkable cardiomediastinal silhouette and stephy. No newly seen airspace abnormality, ple ural effusion or pneumothorax. Impression: No acute radiographic abnormality of the chest. Electronically signed by: LUIZ ACOSTA MD (09/29/2020 10:56 PM) [facility]
[2020-09-29] MEDS ORDERED: IV NORMAL SALINE 1,000ML 1,000 ML IV ONE ×2 (23:00)
[2020-09-29 23:01] LABS: ALBUMIN 3.5 g/dL (3.4-5.0); CALCIUM 9.1 mg/dL (8.5-10.1); GFR 61.4; PHOSPHORUS 4.3 mg/dL (2.6-4.7); TOTAL BILIRUBIN 0.4 mg/dL (0.2-1.0); TOTAL PROTEIN 7.1 g/dL (6.4-8.2)
[2020-09-29] MEDS ORDERED: IV NORMAL SALINE 50ML 50 ML ONE (23:28)
[2020-09-29] MEDS ORDERED: cefTRIAXone SODIUM 1 GM VIAL ONE (23:29)
[2020-09-29] MEDS ORDERED: PHEN-444 PO (23:43)
[2020-09-29] MEDS ORDERED: SULF1TAB24 PO (23:43)
[2020-09-29] MEDS ORDERED: FLUC150T PO (23:44)
--- NOTE | 2020-09-29 23:44 | PHYS DOC ---
Past History Past Medical History: Anxiety, Arthritis, Bipolar, COPD, Depression, Diabetes, Fibromyalgia, Gallstones, High Cholesterol, Hypothyroid, Hepatitis, Kidney Infection, Pancreatitis, UTI, Other Additional Past Medical Histor: STAGE 3 RODRIGUEZ, HYdradenitis supperativa,splenomegla Past Surgical History: Cholecystectomy, Hysterectomy, Tonsillectomy, Other Additional Past Surgical Histo: carpal tunnel, hernia, bilateral ankle Smoking: Cigarettes, Less than 1pk/day Alcohol Use: None Drug Use: None General Adult EDM: Chief Complaint: HYPERGLYCEMIA HPI: HPI: 40-year-old female past medical history of insulin-dependent diabetes, presents to the ED with complaints of " my blood sugar at home was over 550," stating she has been out of her insulin pump supplies for the past few days and is checking her glucose with her Dexcom. Also complains of right flank pain described as sharp and nonradiating that started earlier today with associated nausea and " I feel achy." Reports she is allergic to Toradol and does not tolerate Tylenol, is requesting pain medication. States she has been giving herself sq humalog for her diabetes, took 15 units prior to ED arrival. On review of systems she does report dysuria. Review of Systems: Review of Systems: Constitutional: Denies fever or chills Eyes: Denies change in visual acuity HENT: Denies nasal congestion or sore throat Respiratory: Denies cough or shortness of breath Cardiovascular: Denies chest pain or edema GI: Denies abdominal pain, vomiting, bloody stools or diarrhea : Denies hematuria or vaginal bleeding Musculoskeletal: Denies joint pain or swelling Integument: Denies rash or crepitus Neurologic: Denies headache, focal weakness or sensory changes Endocrine: Denies polyuria or polydipsia Lymphatic: Denies swollen glands Psychiatric: Denies depression or anxiety Current Medications: Current Meds: Current Medications Medications (Trade) Dose Ordered Sig/Yoko Start Time Stop Time Status Last Admin Dose Admin Ceftriaxone Sodium 1 gm/ Sodium Chloride 50 ml @ 100 mls/hr 1X ONCE 09/29/20 23:45 09/30/20 00:14 Ceftriaxone Sodium (Rocephin) 1 gm STK-MED ONCE 09/29/20 23:29 09/29/20 23:29 DC Lidocaine (Lidoderm) 1 patch DAILY 09/30/20 00:00 Miscellaneous (Lidoderm Patch Removal) 1 ea QHS 09/29/20 21:00 Ondansetron HCl (Zofran) 4 mg 1X ONCE 09/29/20 23:45 09/29/20 23:46 Sodium Chloride 50 ml @ As Directed STK-MED ONCE 09/29/20 23:28 09/29/20 23:29 DC Allergies: Allergies: Allergies Coded Allergies Type Severity Reaction Last Updated Verified ketorolac Allergy Intermediate Itching 09/19/20 Yes levofloxacin Allergy Intermediate 09/19/20 Yes shellfish derived Allergy Intermediate Swelling 09/19/20 Yes vancomycin Allergy Intermediate 09/19/20 Yes I S O L A T I O N *CONTACT* Allergy Unknown 09/19/20 Yes NSAIDS (Non-Steroidal Anti-Inflamma Allergy Unknown 09/19/20 Yes Physical Exam: PE: Constitutional: Well developed, well nourished, no acute distress, non-toxic appearance, resting comfortably-back pain not worsened with movement HENT: Normocephalic, atraumatic, Eyes: EOMI, conjunctiva normal, no discharge, dry mucous membranes Neck: Normal range of motion, supple, Cardiovascular: S1/2 present, regular rhythm Lungs & Thorax: Speaking in full sentences, bilateral equal chest rise, no tachypnea or increased work of breathing Abdomen: soft, no tenderness, Dexcom on her abdomen Skin: Warm, dry, Back: No tenderness, +right CVA tenderness. [] Extremities: No tenderness, no cyanosis, Neurologic: Alert and oriented X 3, normal motor function, normal sensory function, no focal deficits noted. [] Psychologic: Affect normal, judgement normal, mood normal. [] Current Patient Data: Labs: Laboratory Tests Test 09/29/20 21:45 09/29/20 21:51 09/29/20 22:10 Urine Collection Type Unknown Urine Color Yellow Urine Clarity Clear Urine pH 5.0 Urine Specific [place] <=1.005 Urine Protein Neg (NEG-TRACE) Urine Glucose (UA) >=1000 mg/dL (NEG) Urine Ketones (Stick) Neg mg/dL (NEG) Urine Blood Neg (NEG) Urine Nitrite Pos (NEG) Urine Bilirubin Neg (NEG) Urine Urobilinogen Dipstick 0.2 mg/dL (0.2 mg/dL) Urine Leukocyte Esterase Neg (NEG) Urine RBC 0 /HPF (0-2) Urine WBC 1-4 /HPF (0-4) Urine Squamous Epithelial Cells Occ /LPF Urine Bacteria Few /HPF (0-FEW) Glucose (Fingerstick) 494 mg/dL (70-99) H White Blood Count 10.3 x10^3/uL (4.0-11.0) Red Blood Count 4.72 x10^6/uL (3.50-5.40) Hemoglobin 14.3 g/dL (12.0-15.5) Hematocrit 43.5 % (36.0-47.0) Mean Corpuscular Volume 92 fL (79-100) Mean Corpuscular Hemoglobin 30 pg (25-35) Mean Corpuscular Hemoglobin Concent 33 g/dL (31-37) Red Cell Distribution Width 18.3 % (11.5-14.5) H Platelet Count 229 x10^3/uL (140-400) Neutrophils (%) (Auto) 70 % (31-73) Lymphocytes (%) (Auto) 22 % (24-48) L Monocytes (%) (Auto) 6 % (0-9) Eosinophils (%) (Auto) 1 % (0-3) Basophils (%) (Auto) 1 % (0-3) Neutrophils # (Auto) 7.2 x10^3uL (1.8-7.7) Lymphocytes # (Auto) 2.2 x10^3/uL (1.0-4.8) Monocytes # (Auto) 0.6 x10^3/uL (0.0-1.1) Eosinophils # (Auto) 0.1 x10^3/uL (0.0-0.7) Basophils # (Auto) 0.1 x10^3/uL (0.0-0.2) Sodium Level 135 mmol/L (136-145) L Potassium Level 4.0 mmol/L (3.5-5.1) Chloride Level 99 mmol/L (98-107) Carbon Dioxide Level 25 mmol/L (21-32) Anion Gap 11 (6-14) Blood Urea Nitrogen 5 mg/dL (7-20) L Creatinine 1.0 mg/dL (0.6-1.0) Estimated GFR (Cockcroft-Gault) 61.4 BUN/Creatinine Ratio 5 (6-20) L Glucose Level 501 mg/dL (70-99) *H Calcium Level 9.1 mg/dL (8.5-10.1) Phosphorus Level 4.3 mg/dL (2.6-4.7) Magnesium Level 2.0 mg/dL (1.8-2.4) Total Bilirubin 0.4 mg/dL (0.2-1.0) Aspartate Amino Transferase (AST) 70 U/L (15-37) H Alanine Aminotransferase (ALT) 128 U/L (14-59) H Alkaline Phosphatase 145 U/L (46-116) H Troponin I Quantitative < 0.017 ng/mL (0-0.055) Total Protein 7.1 g/dL (6.4-8.2) Albumin 3.5 g/dL (3.4-5.0) Albumin/Globulin Ratio 1.0 (1.0-1.7) Lipase 360 U/L (73-393) Acetone Level Neg (NEG) Vital Signs: Vital Signs Date Time Temp Pulse Resp B/P (MAP) Pulse Ox O2 Delivery O2 Flow Rate FiO2 09/29/20 21:37 97.6 108 16 133/82 (99) 97 Room Air EKG: EKG: [] Sinus tachycardia at 105 bpm, no axis deviation, normal intervals, no T wave inversions, no ST elevations or ST depressions Radiology/Procedures: Radiology/Procedures: IMAGING REPORT Signed PATIENT: SANFORD RANDHAWA ACCOUNT: [id number] : 1980 LOCATION: ER AGE: 40 SEX: F EXAM STATUS: REG ER ORD. PHYSICIAN: STANFORD CARRASQUILLO DO REASON: hyperglycemia PROCEDURE: CHEST AP ONLY Study: XR CHEST 1V Indication: Hyperglycemia. Comparison: 08/11/2020 Findings: Unchanged/unremarkable cardiomediastinal silhouette and stephy. No newly seen airspace abnormality, pleural effusion or pneumothorax. Impression: No acute radiographic abnormality of the chest. Electronically signed by: LUIZ ACOSTA MD (09/29/2020 10:56 PM) [facility] DICTATED AND SIGNED BY: LUIZ ACOSTA MD DATE: 09/29/20 3288 CC: LATHA DIA PA-C; STANFORD CARRASQUILLO DO ~MTH0 0 Heart Score: Risk Factors: Risk Factors: DM, Current or recent (<one month) smoker, HTN, HLP, family history of CAD, obesity. Risk Scores: Score 0 - 3: 2.5% MACE over next 6 weeks - Discharge Home Score 4 - 6: 20.3% MACE over next 6 weeks - Admit for Clinical Observation Score 7 - 10: 72.7% MACE over next 6 weeks - Early Invasive Strategies Course & Med Decision Making: Course & Med Decision Making Pertinent Labs and Imaging studies reviewed. (See chart for details) Concern for uncontrolled diabetes with no DKA in the setting of urinary tract infection, possible mild pyelonephritis with flank pain and nausea. Upon not receiving narcotic pain medication patient requested to be discharged home. Her work-up had been completed although she had not received her medications- patient refused IV fluids but received her Zofran, Rocephin and Lidoderm patch. Admission was considered for pyelonephritis but patient is very well-appearing and tolerating oral intake, does not meet sits criteria. Will discharge home with very strict ED return precautions for fever, n/v/d, flu-like sxs, worsening pain or confusion (sepsis/pyelonephritis). Encouraged urgent outpatient follow-up with PMD. Life-threatening processes were considered but are low suspicion at this time, given history, physical exam and ED workup. Pt was educated on all prescription medications and adverse effects. All patient's questions were answered and pt was stable at time of discharge. Life/limb-threatening differential includes but is not limited to, aortic dissection/aneurysm, cauda equina syndrome, transverse myelitis, spinal cord/epidural compression syndromes, discitis, spinal stenosis, epidural abscess or hematoma, osteomyelitis, disc herniation, surgical abdomen, stable or unstab le fracture, renal/ureteral colic, sepsis, meningitis, musculoskeletal injury, traumatic injury, intraabdominal/retroperitoneal or pelvic bleeding. I spoken with the patient and her caregivers. I explained the patient's condition, diagnoses and treatment plan based on the information available to me at this time. I have answered the patient and her caregiver's questions and addressed any concerns. The patient and her caregivers have a good understanding of patient's diagnosis, condition and treatment plan as can be expected at this point. Vital signs have been stable. Patient's condition is stable and appropriate for discharge from the emergency department. Patient will pursue further outpatient evaluation with primary care physician or other designated or consulting physician as outlined in the discharge instructions. The patient and/or caregivers are agreeable to this plan of care and follow-up instructions have been explained in detail. The patient and/or caregivers have received these instructions in written form and have expressed an understanding of the discharge instructions. The patient and/or caregivers are aware that any significant change of condition or worsening of symptoms should prompt immediate return to this or the closest emergency department or call to 911Cyril Garcias Disclaimer: Katerine Disclaimer: This electronic medical record was generated, in whole or in part, using a voice recognition dictation system. Departure Departure: Impression: Primary Impression: Uncontrolled diabetes mellitus Additional Impressions: UTI (urinary tract infection) Nausea Disposition: 01 DC HOME SELF CARE/HOMELESS Condition: STABLE Referrals: LATHA DIA PA-C (PCP) in 1-2 days for insulin pump supplies/reevaluation Patient Instructions: Diabetes Meal Planning Guide, Hyperglycemia, Urinary Tract Infection Additional Instructions: EMERGENCY DEPARTMENT GENERAL DISCHARGE INSTRUCTIONS Thank you for coming to [facility] (ED) today and trusting us with you care. We trust that you had a positivie experience in our Emergency Department. If you wish to speak to the department management, you may call the director at [phone]. YOUR FOLLOW UP INSTRUCTIONS ARE FOLLOWS: 1. Do you have a private Doctor? If you do not have a private doctor, please ask for a resource list of physicians or clinics that may be able to assist you with follow up care. 2. The Emergency Physician has interpreted your x-rays. The X-Ray specialist will also review them. If there is a change in the findings, you will be notified in 48 hours when at all possible. 3. A lab test or culture has been done, your results will be reviewed and you will be notified if you need a change in treatment. ADDITIONAL INSTRUCTIONS AND INFORMATION: 1. Your care today has been supervised by a physician who is specially trained in emergency care. Many problems require more than one evaluation for a complete diagnosis and treatment. We recommend that you schedule your follow up appointment as recommended to ensure complete treatment of you illness or injury. If you are unable to obtain follow up care and continue to have a problem, or if your condition worsens, we recommend that you return to the ED. 2. We are not able to safely determine your condition over the phone nor are we able to give sound medical advice over the phone. For these safety reasons, if you call for medical advice we will ask you to come to the ED for further evaluation. 3. If you have any questions regarding these discharge instructions please call the ED at [phone]. SAFETY INFORMATION: In the interest of safety, wellness, and injury prevention; we encourage you to wear your sealbelt, if you smoke; quite smoking, and we encourage family to use a protective helmet for bicycling and other sporting events that present an increased risk for head injury. IF YOUR SYMPTOMS WORSEN OR NEW SYMPTOMS DEVELOP, OR YOU HAVE CONCERNS ABOUT YOUR CONDITION; OR IF YOUR CONDITION WORSENS WHILE YOU ARE WAITING FOR YOUR FOLLOW UP APPOINTMENT; EITHER CONTACT YOUR PRIMARY CARE DOCTOR, THE PHYSICIAN WHOSE NAME AND NUMBER YOU WERE GIVEN, OR RETURN TO THE ED IMMEDIATELY. Scripts Fluconazole (DIFLUCAN) 150 Mg Tablet 1 TAB PO ONCE for yeast infection, #1 TAB 1 Refill Prov: STANFORD CARRASQUILLO DO 09/29/20 Phenazopyridine Hcl (PHENAZOPYRIDINE HCL) 200 Mg Tablet 1 TAB PO TID for urinary discomfort for 2 Days, #6 TAB 0 Refills after food Prov: STANFORD CARRASQUILLO DO 09/29/20 Sulfamethoxazole/Trimethoprim (BACTRIM DS TABLET) 1 Each Tablet 1 TAB PO BID for uti for 3 Days, #6 TAB 0 Refills Prov: STANFORD CARRASQUILLO DO 09/29/20 STANFORD CARRASQUILLO DO Sep 29, 2020 23:44
[2020-09-29] MEDS ORDERED: ONDANSETRON PF 4 MG/2 ML VIAL. IVP ONE (23:45)
[2020-09-29 23:50] VITALS: BP 136/84
[2020-09-30] MEDS ORDERED: LIDOCAINE (700MG/PATCH) PATCH. TD SCH
--- NOTE | 2020-09-30 04:25 | EKG ---
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
== END 2020-09-29 23:50 | disposition home or self-care (01) ==
LOC: ER 21:37
DX: E11.65 Type 2 diabetes mellitus with hyperglycemia (principal); N39.0 Urinary tract infection, site not specified; R11.0 Nausea; R10.9 Unspecified abdominal pain; F41.9 Anxiety disorder, unspecified; M19.90 Unspecified osteoarthritis, unspecified site; J44.9 Chronic obstructive pulmonary disease, unspecified; F32.9 Major depressive disorder, single episode, unspecified; M79.7 Fibromyalgia; E78.00 Pure hypercholesterolemia, unspecified; E03.9 Hypothyroidism, unspecified; K86.1 Other chronic pancreatitis; F17.210 Nicotine dependence, cigarettes, uncomplicated; Z90.49 Acquired absence of other specified parts of digestive tract; Z90.710 Acquired absence of both cervix and uterus; Z98.890 Other specified postprocedural states; Z91.013 Allergy to seafood; Z88.1 Allergy status to other antibiotic agents; Z88.8 Allergy status to other drugs, medicaments and biological substances
CPT/HCPCS: 36415; 71045; 80053; 81001; 82010; 82947; 83690; 83735; 84100; 84484; 85025; 87086; 93005; 96374; 96375; 99285; J0696; J2405

== ENCOUNTER 2020-09-30 12:27 | Observation (INO) | payer BC ==
[~2020-09-30] VITALS: Ht 162.6 cm; Wt 195.0 kg
[~2020-09-30 12:27] MED LIST changes: +FLUC150T PO; -PATCH REMOVAL. MC SCH; +PHEN-444 PO
--- NOTE | 2020-09-30 13:12 | EKG ---
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
--- NOTE | 2020-09-30 13:17 | PHYS DOC ---
Past History Past Medical History: Anxiety, Arthritis, Bipolar, COPD, Depression, Diabetes, Fibromyalgia, Gallstones, High Cholesterol, Hypothyroid, Hepatitis, Kidney Infection, Pancreatitis, UTI, Other Additional Past Medical Histor: STAGE 3 RODRIGUEZ, HYdradenitis supperativa,splenomegla (ROGER GARCIA APRN) Past Surgical History: Cholecystectomy, Hysterectomy, Tonsillectomy, Other Additional Past Surgical Histo: carpal tunnel, hernia, bilateral ankle (ROGER GARCIA APRN) Smoking: Cigarettes, Less than 1pk/day Alcohol Use: None Drug Use: None (ROGER GARCIA APRN) Adult General Chief Complaint Chief Complaint: SUICIDAL IDEATION HPI HPI Patient is a 40-year-old female presents to the emergency department via EMS transport with chief complaint of overdose on 10 each 2 mg Xanax and 6 each 400 mg Seroquel p.o. at approximately 1145 today. Patient states that she immediately realized that "I did something stupid "and within approximately 2 minutes forced self vomiting in which she reports seeing all 16 tablets, with her vomitus also reporting tablets were intact and appeared nondigested. Patient states that she has had a lot of recent life event changes to include she was considered disabled this year and has been fighting to obtain disability services along with a diagnosis of COPD of February 2020 and forced self to quit smoking cigarettes, her lost his job due to Covid 19 virus this year, she and her were evicted from their home on 09/24/2020, she was unable to help with the move because of her history of gastric portal hypertension. Patient states that she just felt overwhelmed and ingested the tablets without thinking things through. Patient states she is not suicidal, patient states she is not homicidal. Patient states that she does have a psychiatric history however does not feel as if she wants to take her life or end her life today. Patient denies recent fever or chills, nausea, congestion, cough, shortness of breath, chest pains, or chest palpitations. Patient denies any neurological changes, denies dizziness, numbness or tingling to her extremities, denies visual changes, denies auditory changes, denies visual or auditory hallucinations. Patient denies abdominal pain, diarrhea, constipation. Patient denies rashes of her skin, or allergic reaction symptoms. Patient states no one else in her home is having the same symptoms that she. (ROGER GARCIA APRN) Review of Systems Review of Systems 14 body systems of review of systems have been reviewed. See HPI for pertinent positives and negative responses, otherwise all other systems are negative, nonpertinent or noncontributory. (ROGER GARCIA APRN) Current Medications Current Medications See nursing documentation for current medication list. (ROGER GARCIA APRN) Allergies Allergies Allergies Coded Allergies Type Severity Reaction Last Updated Verified ketorolac Allergy Intermediate Itching 09/30/20 Yes levofloxacin Allergy Intermediate 09/30/20 Yes shellfish derived Allergy Intermediate Swelling 09/30/20 Yes vancomycin Allergy Intermediate 09/30/20 Yes I S O L A T I O N *CONTACT* Allergy Unknown 09/30/20 Yes NSAIDS (Non-Steroidal Anti-Inflamma Allergy Unknown 09/30/20 Yes (ROGER GARCIA APRN) Physical Exam Physical Exam Constitutional: Well developed, well nourished, no acute distress, non-toxic appearance. Patient was tearful during physical examination. HENT: Normocephalic, atraumatic, bilateral external ears normal, oropharynx moist, no oral exudates, nose normal. Oropharynx pink, without erythema or edema. Eyes: PERRLA, EOMI, conjunctiva normal, no discharge. Neck: Normal range of motion, no tenderness, supple, no stridor. Cardiovascular:Heart rate regular rhythm, no murmur, heart sounds S1-S2 to auscultation. Lungs & Thorax: Bilateral breath sounds clear to auscultation all lung hicks. Abdomen: Bowel sounds normal, soft, no tenderness, no masses, no pulsatile masses. Skin: Warm, dry, no erythema, no rash. Back: No tenderness, no CVA tenderness. Extremities: No tenderness, no cyanosis, no clubbing, ROM intact, no edema. Neurologic: Alert and oriented X 3, normal motor function, normal sensory function, no focal deficits noted. Psychologic: Affect normal, judgement normal, mood normal. (ROGER GARCIA APRN) Current Patient Data Vital Signs Patient's vital signs during physical exam, temperature 98.1, heart rate 100 bpm, respirations 16 and unlabored, blood pressure right upper extremity per NIBP 125/80, O2 sat 96% on room air. (ROGER GARCIA APRN) EKG EKG EKG performed at 1303 by ED nursing staff shows heart rate 100 bpm, sinus rhythm without ectopy, QTc interval 0.447, QT interval 0.344, QRS interval 0.084, UT interval 0.142. No STEMI, no ACS, no acute ischemia appreciated, EKG interpreted by ED attending physician Dr. Norris. EKG performed at 1533 by house respiratory therapy, sinus tachycardia at a rate of 115 bpm without ectopy, QTc interval 0.453, QT interval 0.326, QRS 0.082, UT interval 0.140, no acute STEMI no acute ischemia no ACS noted, EKG interpreted by ED attending Dr. Alicia (ROGER GARCIA APRN) Radiology/Procedures Radiology/Procedures STATUS: PRE ER ORD. PHYSICIAN: ROGER GARCIA APRN REASON: VOMITING AFTER OVERDOSE PROCEDURE: CHEST PA & LATERAL XR CHEST 2V Clinical indications: VOMITING AFTER OVERDOSE COMPARISON: September 29, 2020. Findings: No acute lung infiltrate or pleural effusion or pulmonary edema or lung mass or pneumothorax is seen. The heart size, pulmonary vasculature, mediastinum and both stephy are unremarkable. The osseous structures appear intact. Impression: No acute radiographic abnormality is seen. Electronically signed by: Alee Yanez MD (09/30/2020 1:26 PM) [id number] DICTATED AND SIGNED BY: ALEE YANEZ MD DATE: 09/30/20 1324 CC: ROGER GARCIA APRN; LATHA DIA PA-C ~MTH0 0 (ROGER GARCIA APRN) Heart Score Risk Factors: Risk Factors: DM, Current or recent (<one month) smoker, HTN, HLP, family history of CAD, obesity. Risk Scores: Risk Factors: DM, Current or recent (<one month) smoker, HTN, HLP, family history of CAD, obesity. (ROGER GARCIA APRN) Course & Med Decision Making Course & Med Decision Making Pertinent Labs and Imaging studies reviewed. (See chart for details) 40-year-old female vital signs stable, presented to emergency department with complaints of overdose on Xanax and Seroquel. Discussed case with poison control merchandising representative Milagro who recommended every 2 hour EKGs, psychiatric lab work-up, 6-hour close observation from time of ingestion of 11:45 AM today, supportive care for symptoms, did not recommend treatment with activated charcoal.. Work-up initiated in ED. Upon reevaluation of the patient, patient's heart rate is elevated to 120, pending second serial EKG, started 1 L normal saline IV bolus. Patient remains alert and oriented x3 at this time. Continue to monitor. Poison control Crop Consultant Milagro called for patient update, reviewed case with poison control. Final serial EKG performed, no significant QT change concerning for QT elongation, the patient did not show any signs of seizure, dystonic reaction, hyperthermia or neuroleptic malignant hyperthermia, arrhythmias, there was no torsades deposits, no hypotension, no bradycardia, no hypotonia, no hyporeflexia, the patient did not show any respiratory depression, did not complain of dizziness, did not complain of headache, the patient did not show signs of agitation or coma, the patient has however exhibited an obtunded state during her 6-hour observation. The patient is difficult to arouse to verbal stimuli, however arouses to touch, initial speech is slurred but does clear up during conversation. However patient does quickly fall back to sleep. The p atient is morbidly obese, the patient does snore deeply and have periods of short apneic states that mimic diagnosis of sleep apnea, the patient does require nasal cannula at 1 L to maintain an O2 sat above 92% during her obtunded state. Discussed case with inpatient admission Dr. Deleon who was concerned of patient's history of liver disease and requested further labs to be obtained and evaluated prior to making a decision on admission. New labs ordered, pending results at this time. Lab results were obtained, discussed case again with who agreed to accept patient admission to [facility] ICU, diagnosis: Xanax/Seroquel overdose, suicidal ideation, obtunded state. (ROGER GARCIA APRN) Course & Med Decision Making I oversaw on the above date of service of this patient and discussed the care with the MECHANICAL PLANNER. I personally saw patient and repeated certain aspects of history and physical exam. I agree with the findings, plan of care, and disposition as documented. Critical Care Time This patient required critical care. Due to the fact that the patient required a significant amount of one on one physician - patient contact time, ordering and review of studies, arranging urgent treatment with development of a management plan, evaluation of patients response to treatment with frequent reassessments, and discussions with other providers this patient required critical care time in excess of 30 minutes. Critical care time was indicated due to the inherent instability and/or potential for instability in this patient. The critical care time that is allocated to this patient is above and beyond any time spent on any other billable procedures performed on this patient. (EVELIN NORRIS DO) Dragon Disclaimer Dragon Disclaimer This electronic medical record was generated, in whole or in part, using a voice recognition dictation system. (ROGER GARCIA APRN) Departure Departure: Impression: Primary Impression: Drug overdose, intentional Additional Impressions: Suicidal ideation Obtunded Disposition: ADMITTED INPT THIS HOSP Admitting Physician: Kirsten Deleon (ICU ADMIT PENDING PSYCHIATRICE EVALUATION) (ROGER GARCIA APRN) Admitting Physician: Kirsten Deleon (ICU ADMIT PENDING PSYCHIATRICE EVALUATION) (EVELIN NORRIS DO) Condition: STABLE Referrals: LATHA DIA PA-C (PCP) Problem Qualifiers Primary Impression: Drug overdose, intentional Encounter type: initial encounter Qualified Codes: T50.902A - Poisoning by unspecified drugs, medicaments and biological substances, intentional self- harm, initial encounter ROGER GARCIA APRN Sep 30, 2020 13:17 EVELIN NORRIS DO Oct 01, 2020 06:59
--- NOTE | 2020-09-30 13:29 | RAD ---
XR CHEST 2V Clinical indications: VOMITING AFTER OVERDOSE COMPARISON: September 29, 2020. Findings: No acute lung infiltrate or pleural effusion or pulmonary edema or lung mass or pneumothora x is seen. The heart size, pulmonary vasculature, mediastinum and both stephy are unremarkable. The os seous structures appear intact. Impression: No acute radiographic abnormality is seen. Electronically signed by: Johann Yanez MD (09/30/2020 1:26 PM) [id number]
[2020-09-30 13:44] LABS: BASO # 0.1 x10^3/uL (0.0-0.2); BASO % 1 % (0-3); EOS # 0.1 x10^3/uL (0.0-0.7); EOS % 1 % (0-3); HEMATOCRIT 43.9 % (36.0-47.0); HEMOGLOBIN 14.5 g/dL (12.0-15.5); LYMPH # 1.8 x10^3/uL (1.0-4.8); LYMPH % 19 % (24-48); MEAN CORPUSCULAR HEMOGLOBIN 30 pg (25-35); MEAN CORPUSCULAR HGB CONC 33 g/dL (31-37); MEAN CORPUSCULAR VOLUME 91 fL (79-100); MONO # 0.6 x10^3/uL (0.0-1.1); MONO % 7 % (0-9); NEUT % 73 % (31-73); PLATELET COUNT 214 x10^3/uL (140-400); RED BLOOD COUNT 4.81 x10^6/uL (3.50-5.40); WHITE BLOOD COUNT 9.7 x10^3/uL (4.0-11.0)
[2020-09-30 13:49] LABS: AMPHETAMINE/METHAMPHETAMINE NEG (NEG); BARBITURATES NEG (NEG); BENZODIAZEPINES POS (NEG); CANNABINOIDS NEG (NEG); COCAINE NEG (NEG); METHADONE NEG (NEG); OPIATES NEG (NEG); PHENCYCLIDINE NEG (NEG)
[2020-09-30 13:52] LABS: CALCIUM 9.3 mg/dL (8.5-10.1); CREATININE 0.9 mg/dL (0.6-1.0); GFR 69.3; POTASSIUM 4.1 mmol/L (3.5-5.1)
[2020-09-30 13:54] LABS: BILIRUBIN,URINE NEG (NEG); CLARITY,URINE CLEAR; COLOR,URINE YELLOW; GLUCOSE,URINE >=1000 mg/dL (NEG); NITRITE,URINE NEG (NEG); UROBILINOGEN,URINE 0.2 mg/dL (0.2 mg/dL)
[2020-09-30 13:55] LABS: BACTERIA,URINE FEW /HPF (0-FEW); RBC,URINE OCC /HPF (0-2); YEAST,URINE PRESENT /HPF
[2020-09-30 13:56] LABS: SQUAMOUS EPITHELIAL CELL,UR FEW /LPF
[2020-09-30 13:58] LABS: ALBUMIN 3.5 g/dL (3.4-5.0); ETHANOL < 10 mg/dL (0-10); TOTAL BILIRUBIN 0.4 mg/dL (0.2-1.0); TOTAL PROTEIN 6.9 g/dL (6.4-8.2)
[2020-09-30 13:59] LABS: ACETAMIN < 2.0 mcg/mL (10-30)
[2020-09-30] MEDS ORDERED: IV NORMAL SALINE 1,000ML 1,000 ML IV ONE ×2 (15:30→18:30)
--- NOTE | 2020-09-30 15:50 | EKG ---
[address] [address] Test Date: 2020-09-30 Test Time: 15:33:00 Pat Name: SANFORD RANDHAWA Department: Room: Gender: F Handbag Operator: TIERNEY : 1980 Requested By: ROGER GARCIA Order Number: [id number] Reading MD: Measurements Intervals Lizella Rate: 115 P: 28 AR: 140 QRS: -45 QRSD: 82 T: 35 QT: 326 QTc: 453 Interpretive Statements SINUS TACHYCARDIA ABNORMAL LEFT AXIS DEVIATION R-S TRANSITION ZONE IN V LEADS DISPLACED TO THE LEFT S1,S2,S3 PATTERN LEFT ANTERIOR FASCICULAR BLOCK ABNORMAL ECG RI6.02 No previous ECG available for comparison
--- NOTE | 2020-09-30 17:25 | EKG ---
[address] [address] Test Date: 2020-09-30 Test Time: 17:21:30 Pat Name: SANFORD RANDHAWA Department: Room: Gender: F Stitchdown Toe Former: TIERNEY : 1980 Requested By: ROGER GARCIA Order Number: [id number] Reading MD: Measurements Intervals Brandon Rate: 121 P: 34 [place]: 154 QRS: -39 QRSD: 82 T: 32 QT: 320 QTc: 457 Interpretive Statements SINUS TACHYCARDIA ABNORMAL LEFT AXIS DEVIATION R-S TRANSITION ZONE IN V LEADS DISPLACED TO THE LEFT LEFT ANTERIOR FASCICULAR BLOCK ABNORMAL ECG RI6.02 No previous ECG available for comparison
[2020-09-30 18:00] LABS: BGAS PH 7.35 (7.35-7.45)
[2020-09-30 19:04] LABS: MAGNESIUM 2.2 mg/dL (1.8-2.4)
[2020-09-30 20:05] VITALS: BP 108/65
--- NOTE | 2020-09-30 20:05 | NUR ---
Pt admitted from ER to ICU bed 3 via gurney, accompanied by EMS and nursing staff. Pt moved over from gurney to bed x3 assist. Admission assessment completed. Pt here for SI, overdose on (10) 2mg Xanax and (6) 40mg Seroquel. Pt obtunded and somnolent, will open eyes to painful stimuli but easily falls back to sleep. Health history and home medication reviewed with pt and also from past admissions (last on 09/19/20). Pt will garbled, slurred speech. Pt placed on telemetry, S.Tach noted on monitor. Pt with shallow apneic breathing, snoring frequently, O2 placed in mouth at 3L NC to keep sats >92%. P UTD on flu vaccine. Case management and Dr. Pisano consulted. Araujo catheter placed using aseptic technique, immediate return of 650ml of urine noted. Pt with 1to1 staff at bedside. Pt was given written information regarding hospital policies, unit procedures and contact persons. Valuables were checked and her 2 bags of belongings are being kept out at nurses station. Dr Deleon called for new orders.
[2020-09-30] MEDS: IV NORMAL SALINE 1,000ML 1,000 ML IV SCH (20:49)
[2020-09-30 21:00] VITALS: BP 122/73
[2020-09-30 22:00] VITALS: BP 130/67
[2020-09-30 23:00] VITALS: BP 132/76
[2020-10-01] VITALS (12 sets, daily range): BP systolic 100–136; BP diastolic 50–81
[2020-10-01] MEDS: IV NORMAL SALINE 1,000ML 1,000 ML IV SCH (04:13)
--- NOTE | 2020-10-01 05:10 | NUR ---
Pt still obtunded and somnolent this AM, will open eyes to voice now but easily falls back to sleep. Rolling/turning independently in bed. Poison control called twice during shift for update. Pt with 1to1 staff at bedside.
[2020-10-01 06:31] LABS: ALBUMIN 3.1 g/dL (3.4-5.0); ALBUMIN/GLOBULIN RATIO 0.9 (1.0-1.7); CREATININE 0.8 mg/dL (0.6-1.0); GFR 79.4; MAGNESIUM 2.1 mg/dL (1.8-2.4); POTASSIUM 3.8 mmol/L (3.5-5.1); TOTAL BILIRUBIN 0.6 mg/dL (0.2-1.0); TOTAL PROTEIN 6.7 g/dL (6.4-8.2)
[2020-10-01 07:27] LABS: BASO # 0.1 x10^3/uL (0.0-0.2); BASO % 1 % (0-3); EOS # 0.1 x10^3/uL (0.0-0.7); EOS % 1 % (0-3); HEMATOCRIT 41.6 % (36.0-47.0); HEMOGLOBIN 13.6 g/dL (12.0-15.5); LYMPH # 2.1 x10^3/uL (1.0-4.8); LYMPH % 17 % (24-48); MEAN CORPUSCULAR HEMOGLOBIN 30 pg (25-35); MEAN CORPUSCULAR HGB CONC 33 g/dL (31-37); MEAN CORPUSCULAR VOLUME 92 fL (79-100); MONO # 0.6 x10^3/uL (0.0-1.1); MONO % 5 % (0-9); NEUT # 9.6 x10^3uL (1.8-7.7); NEUT % 77 % (31-73); PLATELET COUNT 194 x10^3/uL (140-400); RED BLOOD COUNT 4.53 x10^6/uL (3.50-5.40); RED CELL DISTRIBUTION WIDTH 18.2 % (11.5-14.5); WHITE BLOOD COUNT 12.4 x10^3/uL (4.0-11.0)
[2020-10-01 08:18] LABS: % BANDS 2 % (0-9); % LYMPHS 19 % (24-48); % MONOS 5 % (0-10); % SEGS 74 % (35-66)
[2020-10-01 08:19] LABS: PLT ESTIMATE ADEQUATE (ADEQUATE)
--- NOTE | 2020-10-01 09:29 | HP ---
ADMIT DATE: 09/30/2020 ATTENDING PHYSICIAN: Dr. Gianna Villatoro CHIEF COMPLAINT: Drug overdose. HISTORY OF PRESENT ILLNESS: The patient is a 40-year-old female with multiple medical issues. She became despondent and took an overdose of ten 2 mg Xanax tablets and 6 Seroquel tablets. This was yesterday afternoon. She immediately realized that she had done something foolish. She induced self vomiting. All other tablets came up. She still appears somewhat obtunded. She was admitted for observation. Recent stressors indicate that she and her were evicted from their home a week ago. She is in the midst of getting disability. She was not suicidal in the morning when I saw her. PAST MEDICAL HISTORY: Significant for stage 3 nonalcoholic steatohepatitis, splenomegaly. She had vaginitis suppurativa, COPD, continued tobacco abuse, bipolar disorder, anxiety, depression, fibromyalgia, hypothyroidism, hepatitis, chronic kidney infection, pancreatitis and generalized debilitation. ALLERGIES: MULTIPLE ALLERGIES including NONSTEROIDAL ANTI-INFLAMMATORY DRUGS, LEVOFLOXACIN, SHELLFISH AND VANCOMYCIN, exact reaction is unclear. SOCIAL HISTORY: She is a smoker. She denies any alcohol use. FAMILY HISTORY: Nonremarkable. Both mom and dad are alive in their early 70s and fairly healthy. Smoking history as noted. REVIEW OF SYSTEMS: Significant for despondency. She continues to smoke. She is in the process of getting disability. She is unemployed, losses financial stressors. She has , has 3 children, ages 16, 19 and 21 and they still live with them. The rest of detailed review of systems asked the patient to be negative. PHYSICAL EXAMINATION: GENERAL: When I saw her, this is a pleasant, middle-aged female. INITIAL VITAL SIGNS: Showed a blood pressure 100/61 mmHg, pulse 109 and regular, temperature 98.4 degrees Fahrenheit, oxygen saturation 95% on 2 liters nasal cannula. HEENT: Head is without trauma. Pupils are reactive. Sclerae nonicteric. Oropharynx clear. NECK: Supple, no bruits. LUNGS: Clear. CARDIOVASCULAR: Showed regular heart tones. No gallops. ABDOMEN: Soft, no guarding, rebound tenderness. EXTREMITIES: Without edema. NEUROLOGIC: Focally intact. Speech is fluent. No focal deficits. SKIN: Warm and dry. PERTINENT LABORATORY AND X-RAY STUDIES: A chest x-ray on admission showed no acute cardiopulmonary process. Her hemoglobin is 13.6 g/dL with white count of 12,400. Chemistry panel is unremarkable. Creatinine 0.8 mg percent, nonfasting blood sugar 189. ASSESSMENT: 1. This 40-year-old female took an unspecified amount of Xanax and Seroquel, but she promptly induce self vomiting. This is in a suicidal gesture. Currently, she is not actively suicidal. 2. History of nonalcoholic steatohepatitis. 3. Chronic obstructive pulmonary disease. 4. Major depression. 5. History of bipolar disorder. 6. History of other medical issues. PLAN: 1. Observation status. 2. Diet as tolerated. 3. Obvious home meds were held. 4. [facility] to determine whether she is still actively suicidal, at which time if she is not, she can be discharged later today. GIANNA VILLATORO MD DR: NAZ/andrés JOB#: [id number] / [id number]
--- NOTE | 2020-10-01 10:00 | EKG ---
[address] [address] Test Date: 2020-10-01 Test Time: 08:55:33 Pat Name: SANFORD RANDHAWA Department: Room: [facility] 1 Gender: F Design Editor: : 1980 Requested By: SOFIYA FERNANDES Order Number: [id number] Reading MD: Measurements Intervals [place] Rate: 97 P: 25 DC: 150 QRS: -31 QRSD: 82 T: 24 QT: 348 QTc: 446 Interpretive Statements SINUS RHYTHM ABNORMAL LEFT AXIS DEVIATION LEFT ANTERIOR FASCICULAR BLOCK ABNORMAL ECG RI6.01 No previous ECG available for comparison
--- NOTE | 2020-10-01 11:45 | NUR ---
PT IS DISCHARGED HOME WITH SAFETY PLAN PER [facility] SCREEN. COPY OF SIGNED SAFETY PLAN SENT BACK TO [facility]. PATIENTS IV IS REMOVED TELE MONITOR D/C'D PT IS STABLE AT TIME OF DISCHARGE. PT IS GIVEN ALL DISCHARGE AND FOLLOW UP INSTRUCTING. [facility]O AMBULATED OFF OF UNIT ACCOMPANIED BY STAFF.
--- NOTE | 2020-10-01 12:07 | DS ---
DATE OF DISCHARGE: 10/01/2020 ATTENDING PHYSICIAN: Dr. Villatoro. FINAL DISCHARGE DIAGNOSES: 1. Suicidal ideation with a gesture. 2. Drug overdose of Seroquel and Xanax. 3. Nonalcoholic steatohepatitis. 4. Chronic obstructive pulmonary disease. 5. Major depression. 6. Bipolar disorder. 7. Type 2 diabetes. HISTORY AND PHYSICAL: This is a 40-year-old female who became despondent. She took 10 Xanax tablets each 2 mg as well as 6 Seroquel tablets. She immediately realized the ___ of her way and properly induced self-vomiting. She identified 16 pills and really did not have any time for absorption. She was nevertheless admitted for further evaluation. PHYSICAL EXAMINATION: Please see the dictated note. PERTINENT LABORATORY AND X-RAY STUDIES: Chest x-ray was clear on admission, hemoglobin was 14.5 g/dL with white count of 9700. Electrolytes within normal range. Nonfasting blood sugar 189. Urinalysis was clear. Urine drug screen was negative for any recreational drugs. Alcohol level was unremarkable. COURSE IN THE HOSPITAL: The patient was admitted. We held her Xanax and Seroquel. Diet was advanced. When I saw her and examined her, she was quite alert. She had no suicidal ideation. She recognized it was a mistake. She had no impending ideations of self-harm. [facility] was [facility]. They will outline a safe discharge plan for her as an outpatient after discharge. Clearly, she was stable from a cardiac and a respiratory standpoint. The next day, her vital signs were quite stable with a blood pressure 112/68, pulse is 94 and regular. She was afebrile, oxygen saturation 90% on room air. She is discharged home with the following meds. I would recommend she hold her Xanax and Seroquel for now. She should continue her bupropion, Pristiq, Jardiance, ferrous sulfate and Neurontin doses unchanged in addition to her Protonix, Pyridium, sulfamethoxazole, trimethoprim and Ultram. For now, we held her Diflucan, Seroquel and Xanax. Her prognosis is guarded. The patient was then discharged from our hospital in stable condition with explicit instructions and followup care. GIANNA VILLATORO MD DR: NAZ/andrés JOB#: [id number] / [id number]
== END 2020-10-01 11:45 | disposition home or self-care (01) ==
LOC: ER 12:27 → INTOOBSV 19:56 → ICU 19:56
PROVIDERS: ADMIT Internal Medicine; ATTEND Internal Medicine
DX: T42.4X2A Poisoning by benzodiazepines, intentional self-harm, initial encounter (principal); K75.81 Nonalcoholic steatohepatitis (NASH); J44.9 Chronic obstructive pulmonary disease, unspecified; F31.9 Bipolar disorder, unspecified; E11.9 Type 2 diabetes mellitus without complications; E03.9 Hypothyroidism, unspecified; E78.00 Pure hypercholesterolemia, unspecified; K76.6 Portal hypertension; M79.7 Fibromyalgia; F17.210 Nicotine dependence, cigarettes, uncomplicated; F41.9 Anxiety disorder, unspecified; M19.90 Unspecified osteoarthritis, unspecified site; K80.80 Other cholelithiasis without obstruction; Z90.710 Acquired absence of both cervix and uterus; Z86.19 Personal history of other infectious and parasitic diseases; Z87.440 Personal history of urinary (tract) infections; Z90.49 Acquired absence of other specified parts of digestive tract; Z98.890 Other specified postprocedural states; Z79.899 Other long term (current) drug therapy
CPT/HCPCS: 36415; 36600; 71046; 80053; 80307; 80329; 81001; 82010; 82140; 82550; 82803; 82947; 83735; 83874; 84100; 85007; 85025; 93005; 96360; 96361; 99291; G0378; G0480; J7030; G0379

== ENCOUNTER 2020-10-13 02:26 | Emergency (ER) | payer BC ==
[~2020-10-13] VITALS: Ht 162.6 cm; Wt 89.0 kg
[2020-10-13 03:09] LABS: BASO # 0.1 x10^3/uL (0.0-0.2); BASO % 1 % (0-3); EOS # 0.1 x10^3/uL (0.0-0.7); EOS % 2 % (0-3); HEMOGLOBIN 14.5 g/dL (12.0-15.5); LYMPH # 2.7 x10^3/uL (1.0-4.8); LYMPH % 32 % (24-48); MEAN CORPUSCULAR HEMOGLOBIN 31 pg (25-35); MEAN CORPUSCULAR HGB CONC 33 g/dL (31-37); MEAN CORPUSCULAR VOLUME 92 fL (79-100); MONO # 0.6 x10^3/uL (0.0-1.1); MONO % 8 % (0-9); NEUT # 4.8 x10^3uL (1.8-7.7); NEUT % 58 % (31-73); PLATELET COUNT 179 x10^3/uL (140-400); RED BLOOD COUNT 4.77 x10^6/uL (3.50-5.40); WHITE BLOOD COUNT 8.3 x10^3/uL (4.0-11.0)
[2020-10-13 03:14] LABS: BILIRUBIN,URINE NEG (NEG); CLARITY,URINE CLEAR; COLOR,URINE YELLOW; GLUCOSE,URINE >=1000 mg/dL (NEG); NITRITE,URINE NEG (NEG); UROBILINOGEN,URINE 0.2 mg/dL (0.2 mg/dL)
[2020-10-13 03:15] LABS: BACTERIA,URINE 0 /HPF (0-FEW); RBC,URINE 0 /HPF (0-2); SQUAMOUS EPITHELIAL CELL,UR FEW /LPF; WBC,URINE RARE /HPF (0-4)
--- NOTE | 2020-10-13 03:19 | PHYS DOC ---
Past History Past Medical History: Depression, Diabetes, Liver Disease Additional Past Medical Histor: STAGE 3 RODRIGUEZ, HYdradenitis supperativa,splenomegla Past Surgical History: Cholecystectomy, Hysterectomy, Tonsillectomy, Other Additional Past Surgical Histo: carpal tunnel, hernia, bilateral ankle Smoking: Cigarettes, Less than 1pk/day Alcohol Use: Occasionally Drug Use: None Adult General Chief Complaint Chief Complaint: HYPERGLYCEMIA HPI HPI Patient is a 40-year-old female who presents via POV for hyperglycemia. Patient has insulin-dependent type 2 diabetes and currently uses continuous glucose monitor. Reports sleeping peacefully when her partner's phone notification when off notifying him of a glucose greater than 400 inpatient. He woke up patient who then checked her sugar that read "high ". She was concerned as she has been out of all Humalog insulin for past 3 days due to inability to meet deductible. As such she was concern for life-threatening hyperglycemia and came in for evaluation. On arrival, patient feeling fatigued and nauseous. No fever, recent febrile illness, COVID-19 contact, concerning ingestion or sick contact, no chest pain, shortness of breath, abdominal pain, urinary symptoms, changes in bladder or bowel function Review of Systems Review of Systems Fourteen body systems of review of systems have been reviewed. See HPI for pertinent positives and negative responses, other bain all other systems are negative, non-pertinent or non-contributory Current Medications Current Medications Current Medications Medications (Trade) Dose Ordered Sig/Yoko Start Time Stop Time Status Last Admin Dose Admin Insulin Human Regular (HumuLIN R VIAL) 10 unit 1X ONCE 10/13/20 05:45 10/13/20 05:47 DC 10/13/20 05:41 Ondansetron HCl (Zofran) 4 mg STK-MED ONCE 10/13/20 04:43 10/13/20 04:43 DC Sodium Chloride 1,000 ml @ 1,000 mls/hr 1X ONCE 10/13/20 05:30 10/13/20 06:00 DC 10/13/20 05:25 Allergies Allergies Allergies Coded Allergies Type Severity Reaction Last Updated Verified ketorolac Allergy Intermediate Itching 09/30/20 Yes levofloxacin Allergy Intermediate 09/30/20 Yes shellfish derived Allergy Intermediate Swelling 09/30/20 Yes vancomycin Allergy Intermediate 09/30/20 Yes I S O L A T I O N *CONTACT* Allergy Unknown 09/30/20 Yes NSAIDS (Non-Steroidal Anti-Inflamma Allergy Unknown 09/30/20 Yes Physical Exam Physical Exam Constitutional: Well developed, well nourished, no acute distress, non-toxic appearance. HENT: Normocephalic, atraumatic, bilateral external ears normal, oropharynx moist, no oral exudates, nose normal. Eyes: PERRLA, EOMI, conjunctiva normal, no discharge. Neck: Normal range of motion, no tenderness, supple, no stridor. Cardiovascular: Heart rate regular, sinus rhythm, no murmurs rubs or gallops Lungs & Thorax: Bilateral breath sounds clear to auscultation Abdomen: Bowel sounds normal, soft and protuberant, no tenderness, no masses, no pulsatile masses. Nonsurgical abdomen, no peritoneal signs Skin: Warm, dry, no erythema, no rash. Back: No tenderness, no CVA tenderness. Extremities: No tenderness, no cyanosis, no clubbing, ROM intact, no edema. Neurologic: Alert and oriented X 3, grossly normal motor & sensory function, no focal deficits noted. Psychologic: Affect normal, judgement normal, mood normal. Current Patient Data Vital Signs Vital Signs Date Time Temp Pulse Resp B/P (MAP) Pulse Ox O2 Delivery O2 Flow Rate FiO2 10/13/20 04:48 98.2 82 16 101/54 (70) 96 Room Air 10/13/20 02:35 97.7 98 16 126/93 (104) 98 Room Air Lab Results Current Medications Medications (Trade) Dose Ordered Sig/Yoko Route PRN Reason Start Time Stop Time Status Last Admin Dose Admin Sodium Chloride 1,000 ml @ 1,000 mls/hr Q1H IV 10/13/20 03:30 10/13/20 04:29 DC 10/13/20 03:08 Insulin Human Regular (HumuLIN R VIAL) 10 unit 1X ONCE IV 10/13/20 04:30 10/13/20 04:31 DC 10/13/20 04:45 Ondansetron HCl (Zofran) 4 mg 1X ONCE IVP 10/13/20 05:00 10/13/20 05:01 DC 10/13/20 04:47 Ondansetron HCl (Zofran) 4 mg STK-MED ONCE .ROUTE 10/13/20 04:43 10/13/20 04:43 DC Sodium Chloride 1,000 ml @ 1,000 mls/hr 1X ONCE IV 10/13/20 05:30 10/13/20 06:00 DC 10/13/20 05:25 Insulin Human Regular (HumuLIN R VIAL) 10 unit 1X ONCE IV 10/13/20 05:45 10/13/20 05:47 DC 10/13/20 05:41 EKG EKG EKG ordered and interpreted by myself at 0318 hrs. as sinus rhythm at 91 bpm, unremarkable intervals, left axis deviation, no acute ischemic findings, no STEMI Radiology/Procedures Radiology/Procedures [] Heart Score HEART Score for Chest Pain: HEART Score for Chest Pain Response (Comments) Value History Slighlty/Non-Suspicious 0 ECG Normal 0 Age < 45 0 Risk Factors >3 Risk Factors or Hx CAD 2 Troponin < Normal Limit 0 Total 2 Risk Factors: Risk Factors: DM, Current or recent (<one month) smoker, HTN, HLP, family history of CAD, obesity. Risk Scores: Risk Factors: DM, Current or recent (<one month) smoker, HTN, HLP, family history of CAD, obesity. Course & Med Decision Making Course & Med Decision Making Discussed with the patient all findings and diagnostic testing. I discussed most likely diagnosis of hyperglycemia without concerning diagnoses requiring hospital admission such as DKA or HHS. Patient's hyperglycemia improved with ER intervention. I discussed next steps in care and patient he will be returning home without insulin products, states she has not called her primary care physician to discuss this. States she typically uses an insulin pump with Humalog averaging 150 units of insulin daily. She has not tried to contact her primary care physician to discuss if they have samples of insulin or other products she may substitute for Humalog. Her primary care physician has office hours this morning, patient states she has good access to care with them and can be seen or at least talk to on-call nurse about obtaining insulin which I feel is appropriate. Strict return precautions were also discussed at length with good understanding by patient. Patient voiced understanding and agreement with the plan. Patient knows to come back for repeat evaluation if concerning signs or symptoms present prior to outpatient follow-up. Hemodynamically stable, ambulatory and well-appearing at time of disposition. Dragon Disclaimer Dragon Disclaimer This electronic medical record was generated, in whole or in part, using a voice recognition dictation system. Departure Departure: Impression: Primary Impression: Hyperglycemia due to type 2 diabetes mellitus Disposition: 01 DC HOME SELF CARE/HOMELESS Condition: IMPROVED Referrals: LATHA DIA PA-C (PCP) Patient Instructions: Hyperglycemia Additional Instructions: You were seen for hyperglycemia. You responded to ER treatment but it is imperative you call your primary care physician immediately after ER departure to schedule outpatient follow-up and discuss need for refills of your Humalog insulin or change to another more affordable insulin. It is important for good glycemic control to reduce the risks of acute and chronic medical problems. Return to the ED if you develop any abdominal pain, vomiting, cough, chest pain, fever, or any other new or concerning symptoms. It was a pleasure to take care of you and I wish you the best going forward EVELIN NORRIS DO Oct 13, 2020 03:19
[2020-10-13 03:26] LABS: ALBUMIN 3.6 g/dL (3.4-5.0); CALCIUM 9.8 mg/dL (8.5-10.1); GFR 61.4; POTASSIUM 3.9 mmol/L (3.5-5.1); TOTAL BILIRUBIN 0.3 mg/dL (0.2-1.0); TOTAL PROTEIN 7.1 g/dL (6.4-8.2)
[2020-10-13] MEDS ORDERED: IV NORMAL SALINE 1,000ML 1,000 ML IV SCH (03:30)
--- NOTE | 2020-10-13 03:31 | EKG ---
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
[2020-10-13] MEDS ORDERED: INSULIN REGULAR 100 UNIT/ML 3ML VIAL. IV ONE ×2 (04:30→05:45)
[2020-10-13] MEDS ORDERED: ONDANSETRON PF 4 MG/2 ML VIAL. ONE (04:43)
[2020-10-13] MEDS ORDERED: ONDANSETRON PF 4 MG/2 ML VIAL. IVP ONE (05:00)
[2020-10-13] MEDS ORDERED: IV NORMAL SALINE 1,000ML 1,000 ML IV ONE (05:30)
[2020-10-13 05:58] VITALS: BP 100/60
[2020-11-05] MEDS ORDERED: FLUC100T7 PO (11:37)
[2020-11-05] MEDS ORDERED: HYDR-2155 PO (11:37)
[2020-11-05] MEDS ORDERED: FAMO20TA5 PO (11:37)
[2020-11-05] MEDS ORDERED: LACT1CAP19 PO (11:37)
[2020-11-05] MEDS ORDERED: [UNRECOGNIZED DRUG - CODE] PO (11:37)
[2020-11-05] MEDS ORDERED: PHEN-444 PO (11:37)
== END 2020-10-13 05:58 | disposition home or self-care (01) ==
LOC: ER 02:26
DX: E11.65 Type 2 diabetes mellitus with hyperglycemia (principal); F32.9 Major depressive disorder, single episode, unspecified; F17.210 Nicotine dependence, cigarettes, uncomplicated; Z90.49 Acquired absence of other specified parts of digestive tract; Z88.8 Allergy status to other drugs, medicaments and biological substances; Z88.1 Allergy status to other antibiotic agents; Z88.6 Allergy status to analgesic agent
CPT/HCPCS: 36415; 80053; 81001; 82010; 82803; 82947; 84484; 85025; 93005; 96361; 96374; 96375; 96376; 99284; J1815; J2405; J7030

== ENCOUNTER 2020-11-03 22:40 | Inpatient (IN) | payer BC ==
[~2020-11-03] VITALS: Ht 162.6 cm; Wt 92.4 kg
--- NOTE | 2020-11-03 22:43 | PHYS DOC ---
Past History Past Medical History: Anxiety, Arthritis, Depression, Diabetes, High Cholesterol, Liver Disease, Other Additional Past Medical Histor: STAGE 3 RODRIGUEZ, HYdradenitis supperativa,splenomegla Past Surgical History: No Surgical History, Hysterectomy, Other Additional Past Surgical Histo: carpal tunnel, hernia, bilateral ankle Smoking: Cigarettes, Less than 1pk/day Alcohol Use: None Drug Use: None General Adult HPI: HPI: '" My sugars.. and running high... I am getting abdomen pain.. My pump can't keep up.. I get problems from my RODRIGUEZ.. .." Patient is a 40 year old female who presents with above hx and complaints of elevated glucose with abdomen pain. Patient has history of poorly controlled glucose levels in spite of her insulin pump. Sugars at home have been over 500 today. Patient has been having right flank pain with increased generalized abdomen pain. Does have a history of previous kidney stones. Patient does have history of RODRIGUEZ, which is complicated her overall care for her diabetes. Patient has complex medical history with multiple medical issues. Sleep apnea, diverticulitis, pancreatitis, COPD, bipolar disorder, anxiety, depression, fibromyalgia, hypothyroidism, chronically elevated LFTs, recurrent chronic kidney infections, chronic pain, cervical cancer and noncompliant with medical regimens. Patient has had multiple surgeries consistent nasal surgery, cholecystectomy, hysterectomy, hernia surgeries, breast reductions, Dexcom insulin pump . Bladder lift. Patient does continue to smoke tobacco . Pt. follow [facility] for majority of her care, but does also. follows with [facility] for care, Review of Systems: Review of Systems: Constitutional: Denies fever or chills Eyes: Denies change in visual acuity HENT: Denies nasal congestion or sore throat Respiratory: Denies cough or shortness of breath Cardiovascular: Denies chest pain or edema GI: Complains of abdominal pain, nausea,. Denies vomiting, bloody stools or diarrhea : Denies dysuria Musculoskeletal: Denies back pain or joint pain Integument: Denies rash Neurologic: Denies headache, focal weakness or sensory changes Endocrine: Denies polyuria or polydipsia. Complaints of elevated glucose levels Lymphatic: Denies swollen glands Psychiatric: Denies depression or anxiety Family History: Family History: There is a family history of diabetes with mother and father. Father also had a history of A. fib Current Medications: Current Meds: See nursing for home meds Allergies: Allergies: Allergies Coded Allergies Type Severity Reaction Last Updated Verified ketorolac Allergy Intermediate Itching 09/30/20 Yes levofloxacin Allergy Intermediate 09/30/20 Yes shellfish derived Allergy Intermediate Swelling 09/30/20 Yes vancomycin Allergy Intermediate 09/30/20 Yes I S O L A T I O N *CONTACT* Allergy Unknown 09/30/20 Yes NSAIDS (Non-Steroidal Anti-Inflamma Allergy Unknown 09/30/20 Yes Physical Exam: PE: Constitutional: Moderate acute distress, non-toxic appearance. [] HENT: Normocephalic, atraumatic, bilateral external ears normal, oropharynx dry, , no oral exudates, nose normal. [] Eyes: PERRLA, EOMI, conjunctiva normal, no discharge. [] Neck: Normal range of motion, no tenderness, supple, no stridor. [] Cardiovascular: Tachycardia heart rate regular rhythm, no murmur, PMI to left [] Lungs & Thorax: Bilateral breath sounds equal apex with scattered wheezes throughout on auscultation [] Abdomen: Bowel sounds decreased, distended,, soft, generalized abdomen tenderness, no masses, no pulsatile masses. Old surgery scars. Insulin pump on right Skin: Warm, dry, no erythema, no rash. [] Back: No tenderness, mild CVA tenderness. [] Extremities: No tenderness, no cyanosis, no clubbing, ROM intact, no edema. [] Neurologic: Alert and oriented X 3, normal motor function, normal sensory function, no focal deficits noted. [] Psychologic: Affect normal, judgement normal, mood normal. [] EKG: EKG: My interpretation of EKG shows a sinus tachycardia 100 bpm does have leftward axis. No findings acute STEMI of contralateral changes [] Radiology/Procedures: Radiology/Procedures: [address] [place] [id number] IMAGING REPORT Signed PATIENT: SANFORD RANDHAWA ACCOUNT: [id number] : 1980 LOCATION: ER AGE: 40 SEX: F EXAM STATUS: REG ER ORD. PHYSICIAN: RICKIE LAMB MD REASON: discomfort PROCEDURE: ACUTE ABDOMEN SERIES Acute abdominal series with PA chest: Reason for examination: Abdominal discomfort. Comparison is made to previous study dated 02/02/2020. The heart size is normal. Mediastinum is unremarkable. Lung hicks are clear. No acute bony abnormality seen in the thorax. In the abdomen, there are surgical clips from previous cholecystectomy. There is no gross organomegaly. Psoas muscles are symmetric. The bowel gas pattern is nonspecific. No abnormal calcifications are seen. No acute bony abnormalities are evident. IMPRESSION: No acute cardiopulmonary disease. Nonspecific bowel gas pattern. Electronically signed by: Pippa Ramirez MD (11/04/2020 12:12 AM) [facility] DICTATED AND SIGNED BY: PIPPA RAMIREZ MD DATE: 11/04/20 0008 CC: RICKIE LAMB MD; LATHA DIA PA-C ~MTH0 0 [][place] [address] IMAGING REPORT Signed PATIENT: SANFORD RANDHAWA ACCOUNT: [id number] : 1980 LOCATION: ER AGE: 40 SEX: F EXAM STATUS: REG ER ORD. PHYSICIAN: RICKIE LAMB MD REASON: hematuria, Lt.flank pain PROCEDURE: CT ABDOMEN PELVIS WO CONTRAST PQRS Compliance Statement: One or more of the following individualized dose reduction techniques were utilized for this examination: 1. Automated exposure control 2. Adjustment of the mA and/or kV according to patient size 3. Use of iterative reconstruction technique CT ABDOMEN+PELVIS WO Clinical Indication: Reason: hematuria, Lt.flank pain / Spl. Instructions: / History: Comparison: CT abdomen and pelvis with contrast September 19, 2020. Technique: Helical CT imaging of the abdomen and pelvis is performed without IV or oral contrast. Findings: There is no lung consolidation. The cardiac size is normal. There are prominent superficial veins of the left breast. There is mild fatty infiltration of the liver. There is hepatosplenomegaly. Cholecystectomy. The spleen, right adrenal gland, and abdominal aorta are normal. There is 2.6 cm left adrenal myelolipoma not requiring follow-up. There is intravenous contrast in the urinary bladder and mild contrast in the upper collecting system. This limits sensitivity for detection of tiny urolithiasis. There is no hydronephrosis. There is no perinephric stranding. No obvious abnormality of the stomach. The proximal small bowel is thick-walled. There is no small bowel obstruction. The appendix is normal. There is moderate colon stool volume. There is no colon wall thickening. No abdominal adenopathy or free fluid. No urinary bladder wall thickening. Hysterectomy. No pelvic free fluid. Left iliac bone sclerosis adjacent to the sacroiliac joint. No acute bone abnormality. IMPRESSION: 1. The proximal small bowel is thick-walled suggesting enteritis. 2. There is IV contrast in the collecting system and urinary bladder. Correlate for recent contrast administration. 3. Hepatosplenomegaly. 4. Mild fatty infiltration of the liver. 5. Moderate colon stool volume. Correlate for constipation. Electronically signed by: Arun Cavanaugh MD (11/04/2020 12:16 AM) [facility] DICTATED AND SIGNED BY: ARUN CAVANAUGH MD DATE: 11/04/20 0009 CC: RICKIE LAMB MD; LATHA DIA PA-C ~MTH0 0 Heart Score: HEART Score for Chest Pain: HEART Score for Chest Pain Response (Comments) Value History Slighlty/Non-Suspicious 0 ECG Nonspecific Repolarizatio 1 Age < 45 0 Risk Factors 1 or 2 Risk Factors 1 Troponin < Normal Limit 0 Total 2 Risk Factors: Risk Factors: DM, Current or recent (<one month) smoker, HTN, HLP, family history of CAD, obesity. Risk Scores: Score 0 - 3: 2.5% MACE over next 6 weeks - Discharge Home Score 4 - 6: 20.3% MACE over next 6 weeks - Admit for Clinical Observation Score 7 - 10: 72.7% MACE over next 6 weeks - Early Invasive Strategies Course & Med Decision Making: Course & Med Decision Making Pertinent Labs and Imaging studies reviewed. (See chart for details) Discussed presentation, testing and tx. plan with Dr. French . Admit to his service. Impression: 1. [id number] ED 2. Abdomen pain 3. Hematuria 4.RODRIGUEZ 5. Chronically elevated LFTs AST 75, ALT 141,, alk phos 140 6. Chronic pain 7. Dehydration 8. Constipation [] Katerine Disclaimer: Katerine Disclaimer: This electronic medical record was generated, in whole or in part, using a voice recognition dictation system. Departure Departure: Referrals: LATHA DIA PA-C (PCP) Dragrena Disclaimer This chart was dictated in whole or in part using Voice Recognition software in a busy, high-work load, and often noisy Emergency Department environment. It ma y contain unintended and wholly unrecognized errors or omissions. Dragon Disclaimer This chart was dictated in whole or in part using Voice Recognition software in a busy, high-work load, and often noisy Emergency Department environment. It may contain unintended and wholly unrecognized errors or omissions. RICKIE LAMB MD Nov 03, 2020 22:43
[2020-11-03] MEDS ORDERED: IV NORMAL SALINE 1,000ML 1,000 ML IV SCH (23:00)
[2020-11-03] MEDS ORDERED: ONDANSETRON PF 4 MG/2 ML VIAL. IVP ONE (23:00)
[2020-11-03] MEDS ORDERED: FAMOTIDINE 20 MG/2 ML VIAL IVP ONE (23:00)
--- NOTE | 2020-11-03 23:05 | EKG ---
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
[2020-11-03 23:30] LABS: BASO # 0.1 x10^3/uL (0.0-0.2); BASO % 1 % (0-3); EOS # 0.1 x10^3/uL (0.0-0.7); EOS % 1 % (0-3); HEMATOCRIT 43.2 % (36.0-47.0); HEMOGLOBIN 14.5 g/dL (12.0-15.5); LYMPH # 2.5 x10^3/uL (1.0-4.8); LYMPH % 25 % (24-48); MEAN CORPUSCULAR HEMOGLOBIN 31 pg (25-35); MEAN CORPUSCULAR HGB CONC 34 g/dL (31-37); MEAN CORPUSCULAR VOLUME 93 fL (79-100); MONO # 0.8 x10^3/uL (0.0-1.1); MONO % 8 % (0-9); NEUT # 6.4 x10^3uL (1.8-7.7); NEUT % 65 % (31-73); PLATELET COUNT 188 x10^3/uL (140-400); RED BLOOD COUNT 4.66 x10^6/uL (3.50-5.40); RED CELL DISTRIBUTION WIDTH 17.2 % (11.5-14.5); WHITE BLOOD COUNT 9.8 x10^3/uL (4.0-11.0)
[2020-11-03] MEDS ORDERED: MORPHINE SULFATE 10 MG/ML SYRINGE. SQ ONE (23:30)
[2020-11-03 23:37] LABS: CLARITY,URINE HAZY; COLOR,URINE YELLOW
[2020-11-03 23:37] LABS: CALCIUM 8.5 mg/dL (8.5-10.1); CREATININE 0.8 mg/dL (0.6-1.0); GFR 79.4; POTASSIUM 3.9 mmol/L (3.5-5.1)
[2020-11-03 23:38] LABS: BACTERIA,URINE 0 /HPF (0-FEW); BARBITURATES NEG (NEG); BENZODIAZEPINES POS (NEG); BILIRUBIN,URINE NEG (NEG); CANNABINOIDS NEG (NEG); COCAINE NEG (NEG); GLUCOSE,URINE >=1000 mg/dL (NEG); METHADONE NEG (NEG); NITRITE,URINE NEG (NEG); OPIATES POS (NEG); PHENCYCLIDINE NEG (NEG); RBC,URINE >40 /HPF (0-2); SQUAMOUS EPITHELIAL CELL,UR OCC /LPF; UROBILINOGEN,URINE 0.2 mg/dL (0.2 mg/dL)
[2020-11-03 23:39] LABS: AMPHETAMINE/METHAMPHETAMINE NEG (NEG)
[2020-11-03 23:43] LABS: ALBUMIN 3.4 g/dL (3.4-5.0); DIRECT BILIRUBIN 0.2 mg/dL (0.0-0.2); TOTAL BILIRUBIN 0.4 mg/dL (0.2-1.0); TOTAL PROTEIN 6.8 g/dL (6.4-8.2)
--- NOTE | 2020-11-04 00:14 | RAD ---
Acute abdominal series with PA chest: Reason for examination: Abdominal discomfort. Comparison is made to previous study dated 02/02/2020. The heart size is normal. Mediastinum is unremarkable. Lung hicks are clear. No acute bony abnormali ty seen in the thorax. In the abdomen, there are surgical clips from previous cholecystectomy. There is no gross organomegal y. Psoas muscles are symmetric. The bowel gas pattern is nonspecific. No abnormal calcifications are seen. No acute bony abnormalities are evident. IMPRESSION: No acute cardiopulmonary disease. Nonspecific bowel gas pattern. Electronically signed by: Nadiya Celestin MD (11/04/2020 12:12 AM) [facility]
[2020-11-04] MEDS ORDERED: IV RINGERS SOLUTION,LACTATED 1,000 ML IV ONE (00:15)
[2020-11-04] MEDS ORDERED: INSULIN REGULAR 100 UNIT/ML 3ML VIAL. IV ONE (00:15)
[2020-11-04] MEDS ORDERED: INSULIN REGULAR VIAL 100 UNIT in IV NORMAL SALINE 100ML 100 ML IV ONE ×2 (00:15→01:00)
[2020-11-04] MEDS ORDERED: IV NORMAL SALINE 100ML 100 ML ONE (00:18)
--- NOTE | 2020-11-04 00:19 | RAD ---
PQRS Compliance Statement: One or more of the following individualized dose reduction techniques were utilized for this examinat ion: 1. Automated exposure control 2. Adjustment of the mA and/or kV according to patient size 3. Use of iterative reconstruction technique CT ABDOMEN+PELVIS WO Clinical Indication: Reason: hematuria, Lt.flank pain / Spl. Instructions: / History: Comparison: CT abdomen and pelvis with contrast September 19, 2020. Technique: Helical CT imaging of the abdomen and pelvis is performed without IV or oral contrast. Findings: There is no lung consolidation. The cardiac size is normal. There are prominent superficial veins of the left breast. There is mild fatty infiltration of the liver. There is hepatosplenomegaly. Cholecystectomy. The sple en, right adrenal gland, and abdominal aorta are normal. There is 2.6 cm left adrenal myelolipoma not requiring follow-up. There is intravenous contrast in the urinary bladder and mild contrast in the upper collecting system . This limits sensitivity for detection of tiny urolithiasis. There is no hydronephrosis. There is no perinephric stranding. No obvious abnormality of the stomach. The proximal small bowel is thick-walled. There is no small gale wel obstruction. The appendix is normal. There is moderate colon stool volume. There is no colon wall thickening. No abdominal adenopathy or free fluid. No urinary bladder wall thickening. Hysterectomy. No pelvic free fluid. Left iliac bone sclerosis adjacent to the sacroiliac joint. No acute bone abnormality. IMPRESSION: 1. The proximal small bowel is thick-walled suggesting enteritis. 2. There is IV contrast in the collecting system and urinary bladder. Correlate for recent contrast administration. 3. Hepatosplenomegaly. 4. Mild fatty infiltration of the liver. 5. Moderate colon stool volume. Correlate for constipation. Electronically signed by: Arun Cavanaugh MD (11/04/2020 12:16 AM) [facility]
[2020-11-04] MEDS ORDERED: ACETAMINOPHEN 325 MG TABLET PO PRN (00:45)
[2020-11-04] MEDS ORDERED: ONDANSETRON PF 4 MG/2 ML VIAL. IVP PRN (00:45)
--- NOTE | 2020-11-04 02:20 | NUR ---
The patient, SANFORD RANDHAWA, 40 y/o, F admitted by PEDRO PABLO JORDAN MD, was given written information regarding hospital policies, unit procedures and contact persons. Valuables were checked and VITALS OBTAINED. PT IS A&OX4 AND ABLE TO EXPRESS ANY CONCERNS SHE HAS. PT IS ON INSULIN PUMP WITH HOURLY BLOOD SUGAR CHECKS EVERY HOUR. PT IS CURRENTLY RESTING IN BED. WILL CONTINUE TO MONITOR.
[2020-11-04 02:33] VITALS: BP 114/73
[2020-11-04] MEDS: IV RINGERS SOLUTION,LACTATED 1,000 ML IV SCH ×3 (03:41→11:00)
[2020-11-04] MEDS: MORPHINE SULFATE 2 MG/ML DISP.SYRIN. IV PRN ×5 (04:04→20:00)
[2020-11-04 06:01] VITALS: BP 96/60
[2020-11-04] MEDS: IPRATRPIUM/ALBUTEROL 0.5/2.5MG 3 ML NEBU. NEB SCH ×4 (06:51→20:00)
[2020-11-04] MEDS ORDERED: traMADol 50 MG TABLET PO PRN (07:00)
[2020-11-04] MEDS: PANTOPRAZOLE 40 MG TABLET. PO SCH (07:30)
[2020-11-04] MEDS: DESVENLAFAXINE 50 MG TAB.ER.24H. PO SCH (09:00)
[2020-11-04] MEDS: buPROPion SR 100 MG TABLET.SA. PO SCH (09:00)
--- NOTE | 2020-11-04 09:14 | NUR ---
This RN updated the patients eMAR schedule to obtain an up to date medication administration schedule.
[2020-11-04] MEDS ORDERED: DEXTROSE 50% 25 GM / 50ML DISP.SYRIN. IV PRN (10:30)
[2020-11-04] MEDS ORDERED: HYDROcodone/APAP 5/325MG 1 TAB TABLET PO PRN (10:30)
[2020-11-04] MEDS: FAMOTIDINE 20 MG/2 ML VIAL IVP SCH ×2 (10:45→20:00)
[2020-11-04] MEDS: PHENAZOPYRIDINE 200 MG TABLET. PO SCH ×3 (10:46→20:00)
[2020-11-04] MEDS: FERROUS SULFATE 325 MG TABLET. PO SCH (10:46)
[2020-11-04] MEDS: FLUCONAZOLE 100 MG TABLET. PO SCH (10:46)
[2020-11-04] MEDS: EMPAGLIFLOZIN 10 MG TABLET. PO SCH (10:51)
[2020-11-04 11:00] VITALS: BP 101/64
[2020-11-04] MEDS: INSULIN LISPRO 300 UNITS/3 ML VIAL. SQ SCH ×2 (12:58→17:00)
[2020-11-04 14:50] VITALS: BP 110/68
--- NOTE | 2020-11-04 15:14 | NUR ---
Pt. says she will call if she needs a breathing tx, otherwise she doesn't want them. Request they are made Prn. Thank you, Respiratory Therapy.
[2020-11-04 20:24] VITALS: BP 133/80
[2020-11-04] MEDS ORDERED: GABAPENTIN 300 MG CAPSULE. PO SCH (21:00)
--- NOTE | 2020-11-04 21:29 | HP ---
ADMIT DATE: 11/04/2020 HISTORY OF PRESENT ILLNESS: A 40-year-old female came in with severe abdominal pain, poorly controlled diabetes, even though she has an insulin pump. The patient complained of right flank pain and abdominal pain. The patient was admitted. She does have a history of RODRIGUEZ and other elements that may have been causing the problem with her elevated sugars of greater than 500. The patient also notes at times hypotensive and her imaging studies showed possible enteritis, possibly causing the elevation of her blood sugars despite being on an insulin pump. PAST MEDICAL HISTORY: Includes nasal surgery, tonsillectomy, COPD, CPAP for sleep apnea, esophageal varices, diverticulitis, pancreatitis, cholecystectomy, hysterectomy, hernia surgery, obesity, GERD, uterine prolapse, history of cervical cancer, breast reduction, hysterectomy, kidney stones, back pain, endocrine disorders, hypoglycemia, psychiatric problems of bipolar disorder, depression, RODRIGUEZ, previous suicide attempt in 09/2020. VACCINATIONS: Unknown. SURGERIES: Of course as indicated breast reduction. ALLERGIES: NSAIDS, TORADOL, LEVAQUIN, SHELLFISH DERIVED, AND VANCOMYCIN. SOCIAL HISTORY: The patient has about a 30-40 pack-year history of smoking. Occasional alcohol use. Hard drug use negative. Full code. REVIEW OF SYSTEMS: Abdominal pain, primarily on the right side, some nausea, but no vomiting. Denies chest pain, shortness of breath, headaches, visual changes, blurred vision, double vision. Denies any melena, hematochezia, hematemesis and neurologically intact. PHYSICAL EXAMINATION: GENERAL: This is a pleasant white female, in moderate amount of discomfort. VITAL SIGNS: Blood pressure 140/93, respiratory rate 18, pulse ox 104, temperature 96.4, oxygen 96%. HEENT: The patient's head was atraumatic, normocephalic. Eyes: PERRLA without jaundice. Mouth and throat were normal. NECK: Supple, without JVD, carotid bruits or thyromegaly. LUNGS: Diminished, but clear. CARDIOVASCULAR: Regular sinus rhythm. ABDOMEN: Soft, diffuse tenderness in the right lower and right mid quadrant area, slight guarding, but no rebounding. Positive bowel sounds, markedly protuberant. Stool hemoccult negative. EXTREMITIES: No clubbing, cyanosis, nor edema. NEUROLOGIC: The patient was alert and oriented x 3. LABORATORY DATA: The patient's labs showed a white count of 9, hemoglobin 14 and 43, normal shift. The patient's chemistries as noted, blood sugar was greater than approximately 500 at one time, sodium and potassium 135 and 3.9, ____ 8 and 0.8. Liver enzymes elevated at 75, 141 and alkaline phosphatase 140, all related to her history of RODRIGUEZ. Cardiac enzymes negative. Albumin negative. Sugars are being brought down initially with an insulin drip. The patient did have positive for opiates in her drug screen. The patient had greater than 1000 units of measure in her urine. The patient's medications were reconciled in the usual fashion and the patient continued to be monitored carefully of all these as well. IMPRESSION: Enteritis, hyperglycemia, uncontrolled of type 2 diabetes; history of non-alcoholic steatohepatitis, elevated liver enzymes, hematuria, enteritis. PLAN: The patient will be monitored on her blood sugars. For the enteritis, it is viral, we will just let it pass, so I gave her fluids, hydration and make further evaluation per those results. PEDRO PABLO JORDAN MD DR: JOHN/andrés JOB#: [id number] / [id number]
[2020-11-05] MEDS: MORPHINE SULFATE 2 MG/ML DISP.SYRIN. IV PRN ×2 (00:01→05:12)
[2020-11-05 05:32] VITALS: BP 105/71
[2020-11-05 06:18] LABS: BASO # 0.1 x10^3/uL (0.0-0.2); BASO % 1 % (0-3); EOS # 0.1 x10^3/uL (0.0-0.7); EOS % 1 % (0-3); HEMATOCRIT 44.1 % (36.0-47.0); HEMOGLOBIN 14.9 g/dL (12.0-15.5); LYMPH # 2.1 x10^3/uL (1.0-4.8); LYMPH % 26 % (24-48); MEAN CORPUSCULAR HEMOGLOBIN 31 pg (25-35); MEAN CORPUSCULAR HGB CONC 34 g/dL (31-37); MEAN CORPUSCULAR VOLUME 91 fL (79-100); MONO # 0.5 x10^3/uL (0.0-1.1); MONO % 7 % (0-9); NEUT # 5.2 x10^3uL (1.8-7.7); NEUT % 65 % (31-73); PLATELET COUNT 169 x10^3/uL (140-400); RED BLOOD COUNT 4.86 x10^6/uL (3.50-5.40); RED CELL DISTRIBUTION WIDTH 16.7 % (11.5-14.5)
[2020-11-05 06:25] LABS: CREATININE 0.7 mg/dL (0.6-1.0); GFR 92.7; POTASSIUM 3.8 mmol/L (3.5-5.1)
[2020-11-05] MEDS: PHENAZOPYRIDINE 200 MG TABLET. PO SCH (07:57)
[2020-11-05] MEDS: FERROUS SULFATE 325 MG TABLET. PO SCH (07:58)
[2020-11-05] MEDS: FLUCONAZOLE 100 MG TABLET. PO SCH (07:58)
[2020-11-05] MEDS: EMPAGLIFLOZIN 10 MG TABLET. PO SCH (07:58)
[2020-11-05] MEDS: PANTOPRAZOLE 40 MG TABLET. PO SCH (07:58)
[2020-11-05] MEDS: DESVENLAFAXINE 50 MG TAB.ER.24H. PO SCH (07:58)
[2020-11-05] MEDS: FAMOTIDINE 20 MG/2 ML VIAL IVP SCH (07:58)
[2020-11-05] MEDS: buPROPion SR 100 MG TABLET.SA. PO SCH (07:59)
[2020-11-05] MEDS: INSULIN LISPRO 300 UNITS/3 ML VIAL. SQ SCH (08:00)
[2020-11-05] MEDS ORDERED: LACTOBACILLUS RHAMNOSUS GG 1 CAPSULE. PO SCH (09:00)
[2020-11-05 11:00] VITALS: BP 158/85
[2020-11-05] MEDS ORDERED: PHEN-444 PO (11:37)
[2020-11-05] MEDS ORDERED: FLUC100T7 PO (11:37)
[2020-11-05] MEDS ORDERED: LACT1CAP19 PO (11:37)
[2020-11-05] MEDS ORDERED: HYDR-2155 PO (11:37)
[2020-11-05] MEDS ORDERED: [UNRECOGNIZED DRUG - CODE] PO (11:37)
[2020-11-05] MEDS ORDERED: FAMO20TA5 PO (11:37)
--- NOTE | 2020-11-05 11:50 | NUR ---
Patient discharged from hospital for Hyperglycemia. Discharge instructions and medications reviewed with pt and all questions answered. Pt verbalized understanding. Pt ambulated without difficulty out of front of main hospital.
== END 2020-11-05 11:50 | disposition home or self-care (01) | DRG 392 ==
LOC: ER 22:40 → 1 SOUTH 11-04 02:17
PROVIDERS: ADMIT Family Medicine; ATTEND Family Medicine
DX: K52.9 Noninfective gastroenteritis and colitis, unspecified (principal); E03.9 Hypothyroidism, unspecified; E11.65 Type 2 diabetes mellitus with hyperglycemia; E78.00 Pure hypercholesterolemia, unspecified; E86.0 Dehydration; F31.9 Bipolar disorder, unspecified; G89.29 Other chronic pain; J44.9 Chronic obstructive pulmonary disease, unspecified; K59.00 Constipation, unspecified; K75.81 Nonalcoholic steatohepatitis (NASH); M79.7 Fibromyalgia; R31.9 Hematuria, unspecified; E66.9 Obesity, unspecified; Z79.4 Long term (current) use of insulin; Z83.3 Family history of diabetes mellitus; Z85.3 Personal history of malignant neoplasm of breast; Z85.41 Personal history of malignant neoplasm of cervix uteri; Z87.891 Personal history of nicotine dependence; Z90.49 Acquired absence of other specified parts of digestive tract; Z90.710 Acquired absence of both cervix and uterus; Z91.19 Patient's noncompliance with other medical treatment and regimen; Z91.5 Personal history of self-harm; Z96.41 Presence of insulin pump (external) (internal); Z68.35 Body mass index [BMI] 35.0-35.9, adult; F41.9 Anxiety disorder, unspecified; G47.30 Sleep apnea, unspecified; K21.9 Gastro-esophageal reflux disease without esophagitis; M19.90 Unspecified osteoarthritis, unspecified site; Z88.8 Allergy status to other drugs, medicaments and biological substances; Z88.1 Allergy status to other antibiotic agents; Z91.041 Radiographic dye allergy status
CPT/HCPCS: 36415; 74022; 74176; 80048; 80076; 80307; 81001; 82550; 82947; 83690; 84484; 85025; 85610; 85730; 93005; 96365; 96372; 96375; 96376; J1815; J2270; J2405; J3490; J7120; 99291-25; J7030

== ENCOUNTER 2020-11-21 20:08 | Inpatient (IN) | payer BC ==
[~2020-11-21] VITALS: Ht 162.6 cm; Wt 88.4 kg
[~2020-11-21 20:08] MED LIST changes: +FAMO20TA5 PO; +FLUC100T7 PO; +HYDR-2155 PO; +LACT1CAP19 PO; +[UNRECOGNIZED DRUG - CODE] PO
--- NOTE | 2020-11-21 20:17 | PHYS DOC ---
Past History Past Medical History: Anxiety, Arthritis, Depression, Diabetes, Fibromyalgia, High Cholesterol, Liver Disease, Other Additional Past Medical Histor: STAGE 3 RODRIGUEZ, HYdradenitis supperativa ,splenomegla, GASTRIC PORTAL HTN Past Surgical History: No Surgical History, Hysterectomy, Other Additional Past Surgical Histo: carpal tunnel, hernia, bilateral ankle Smoking: Cigarettes, Less than 1pk/day Alcohol Use: None Drug Use: None General Adult HPI: HPI: "My sugars are really high... I just got the pump supply of meds today... I usually folllow at [facility]... because of my RODRIGUEZ.. but [facility]>".. " l am having some generalized abdomen.. like when my sugars get high..." Patient is a 40 year old female who presents with above hx and complaints generalized abdomen pain and elevated glucose levels. Patient last admitted at our facility for similar type presentation 11/04/20. Patient kirsten again presents her abdomen pain and poorly controlled diabetes. She does have an insulin pump but states she has been out of her meds until today. Patient localizes pain somewhat on right flank and generalized abdomen. Patient has history of RODRIGUEZ. Prior visits his sugars have been over 500. Patient has had history of hypertension, hypotension, enteritis, pancreatitis, sleep apnea on CPAP, esophageal varices, obesity, GERD, diverticulitis, pancreatitis, sleep apnea, uterine prolapse, cervical cancer, episodes of hypoglycemia, chronic pain, bipolar disorder, fibromyalgia, chronic back pain, depression, suicide attempt in 09/28. Patient does have an implant pump. Has had nasal surgeries, tonsillectomy, hysterectomy, hernia surgeries, hysterectomy, laparoscopic evaluations. Patient does continue to smoke. Patient is a full code. Patient normally follows with Dr. French locally and with last admit. . Patient's primary for her RODRIGUEZ and complications are . Patient denies any intake of bad food today. Patient denies any trauma. Patient denies any travel or specific ill contacts. Review of Systems: Review of Systems: Constitutional: Denies fever or chills Eyes: Denies change in visual acuity HENT: Denies nasal congestion or sore throat Respiratory: Denies cough or shortness of breath Cardiovascular: Denies chest pain or edema GI: Complains of generalized abdominal pain, nausea. Denies, vomiting, bloody stools or diarrhea : Denies dysuria Musculoskeletal: Denies back pain or joint pain Integument: Denies rash Neurologic: Denies headache, focal weakness or sensory changes Endocrine: Complains of elevated blood sugars Lymphatic: Denies swollen glands Psychiatric: Denies depression or anxiety Family History: Family History: Noncontributory to presentation Current Medications: Current Meds: See nursing for home meds Allergies: Allergies: Allergies Coded Allergies Type Severity Reaction Last Updated Verified ketorolac Allergy Intermediate Itching 09/30/20 Yes levofloxacin Allergy Intermediate 09/30/20 Yes shellfish derived Allergy Intermediate Swelling 09/30/20 Yes vancomycin Allergy Intermediate 09/30/20 Yes I S O L A T I O N *CONTACT* Allergy Unknown 09/30/20 Yes NSAIDS (Non-Steroidal Anti-Inflamma Allergy Unknown 09/30/20 Yes Physical Exam: PE: Constitutional: Moderate acute distress, non-toxic appearance. [] HENT: Normocephalic, atraumatic, bilateral external ears normal, oropharynx dry, no oral exudates, nose normal. [] Eyes: PERRLA, EOMI, conjunctiva normal, no discharge. [] Neck: Normal range of motion, no tenderness, supple, no stridor. [] Cardiovascular: Tachycardia heart rate regular rhythm, no murmur [], PMI to the left Lungs & Thorax: Bilateral breath sounds equal apex with scattered wheezes on auscultation [] Abdomen: Bowel sounds normal, soft, distended, generalized tenderness, no masses, no pulsatile masses. Obese. Insulin pump. No rebound focalization Skin: Warm, dry, no erythema, no rash. [] Back: No tenderness, no CVA tenderness. [] Extremities: No tenderness, no cyanosis, no clubbing, ROM intact, bilateral ankle edema. No psoas sign. No cording appreciated. Neurologic: Alert and oriented X 3, moves all extremities on request, does have distal sensory,, no focal deficits noted. [] Psychologic: Affect anxious, judgement normal, mood normal. [] EKG: EKG: My interpretation of EKG shows a sinus tachycardia 104 bpm. Left axis deviation. Fascicular block. But no findings of acute STEMI with contralateral changes. [] Radiology/Procedures: Radiology/Procedures: [] Heart Score: HEART Score for Chest Pain: HEART Score for Chest Pain Response (Comments) Value History Moderately Suspicious 1 ECG Nonspecific Repolarizatio 1 Age < 45 0 Risk Factors 1 or 2 Risk Factors 1 Troponin < Normal Limit 0 Total 3 Risk Factors: Risk Factors: DM, Current or recent (<one month) smoker, HTN, HLP, family history of CAD, obesity. Risk Scores: Score 0 - 3: 2.5% MACE over next 6 weeks - Discharge Home Score 4 - 6: 20.3% MACE over next 6 weeks - Admit for Clinical Observation Score 7 - 10: 72.7% MACE over next 6 weeks - Early Invasive Strategies Course & Med Decision Making: Course & Med Decision Making Pertinent Labs and Imaging studies reviewed. (See chart for details) Discussed presentation, testing and treatment plan with Dr. French. Will admit for hydration and insulin qtt. Consider CT abd. once hydrated, Impression: 1. Hyperglycemia 624 glucose ( Normal ph 7.36- Not DKA) 2. Dehydration 3. Hematuria > 40 RBC 4. Abdomen Pain- Suspect Renal colic 5. Constipation 6. Hx. RODRIGUEZ 7. Elevated AST 41,[id number], [id number] [id number] [] Dragon Disclaimer: Dragon Disclaimer: This electronic medical record was generated, in whole or in part, using a voice recognition dictation system. Departure Departure: Referrals: PEDRO PABLO FRENCH MD (PCP) Katerine Disclaimer This chart was dictated in whole or in part using Voice Recognition software in a busy, high-work load, and often noisy Emergency Department environment. It may contain unintended and wholly unrecognized errors or omissions. RICKIE LAMB MD Nov 21, 2020 20:17
[2020-11-21] MEDS ORDERED: INSULIN REGULAR 100 UNIT/ML 3ML VIAL. IV ONE (20:30)
[2020-11-21] MEDS ORDERED: IV NORMAL SALINE 1,000ML 1,000 ML IV SCH (20:30)
[2020-11-21] MEDS ORDERED: FAMOTIDINE 20 MG/2 ML VIAL IVP ONE (20:30)
[2020-11-21] MEDS ORDERED: ONDANSETRON PF 4 MG/2 ML VIAL. IVP ONE (20:30)
[2020-11-21] MEDS ORDERED: IV RINGERS SOLUTION,LACTATED 1,000 ML IV SCH (20:30)
[2020-11-21] MEDS ORDERED: INSULIN REGULAR VIAL 100 UNIT in IV NORMAL SALINE 100ML 100 ML IV ONE ×2 (20:30→22:00)
[2020-11-21 20:51] LABS: CLARITY,URINE HAZY; COLOR,URINE STRAW
[2020-11-21 20:52] LABS: BACTERIA,URINE FEW /HPF (0-FEW); BILIRUBIN,URINE NEG (NEG); GLUCOSE,URINE >=1000 mg/dL (NEG); NITRITE,URINE NEG (NEG); RBC,URINE >40 /HPF (0-2); SQUAMOUS EPITHELIAL CELL,UR FEW /LPF; UROBILINOGEN,URINE 0.2 mg/dL (0.2 mg/dL)
[2020-11-21 20:57] LABS: BARBITURATES NEG (NEG); BENZODIAZEPINES POS (NEG); CANNABINOIDS NEG (NEG); COCAINE NEG (NEG); METHADONE NEG (NEG); OPIATES NEG (NEG); PHENCYCLIDINE NEG (NEG)
[2020-11-21 20:58] LABS: BGAS PH 7.36 (7.35-7.45)
[2020-11-21 20:59] LABS: AMPHETAMINE/METHAMPHETAMINE NEG (NEG)
[2020-11-21 21:20] LABS: BASO # 0.1 x10^3/uL (0.0-0.2); BASO % 1 % (0-3); EOS # 0.1 x10^3/uL (0.0-0.7); EOS % 1 % (0-3); HEMATOCRIT 45.8 % (36.0-47.0); HEMOGLOBIN 15.1 g/dL (12.0-15.5); LYMPH # 1.8 x10^3/uL (1.0-4.8); LYMPH % 19 % (24-48); MEAN CORPUSCULAR HEMOGLOBIN 31 pg (25-35); MEAN CORPUSCULAR HGB CONC 33 g/dL (31-37); MEAN CORPUSCULAR VOLUME 93 fL (79-100); MONO # 0.5 x10^3/uL (0.0-1.1); MONO % 6 % (0-9); NEUT # 7.1 x10^3uL (1.8-7.7); NEUT % 74 % (31-73); PLATELET COUNT 196 x10^3/uL (140-400); RED BLOOD COUNT 4.94 x10^6/uL (3.50-5.40); RED CELL DISTRIBUTION WIDTH 16.2 % (11.5-14.5); WHITE BLOOD COUNT 9.6 x10^3/uL (4.0-11.0)
--- NOTE | 2020-11-21 21:40 | RAD ---
Exam: Acute abdominal series INDICATION: Abdominal pain TECHNIQUE: Frontal view of chest with upright and supine views of the abdomen Comparisons: CT 11/03/2020 FINDINGS: The cardiomediastinal silhouette and pulmonary vessels are within normal limits. The lung and pleural spaces are clear. Air and stool are noted throughout the colon to level the rectum in a nonobstructive bowel gas patter n. No suspicious osseous lesions or acute fractures. IMPRESSION: 1. No acute cardiopulmonary process. 2. Nonobstructive bowel gas pattern. Electronically signed by: Martha Ulloa MD (11/21/2020 9:37 PM) [facility]ADDE[facility]
[2020-11-21 21:42] LABS: ALBUMIN 3.7 g/dL (3.4-5.0); CALCIUM 9.2 mg/dL (8.5-10.1); CREATININE 1.1 mg/dL (0.6-1.0); DIRECT BILIRUBIN 0.1 mg/dL (0.0-0.2); POTASSIUM 4.2 mmol/L (3.5-5.1); TOTAL BILIRUBIN 0.3 mg/dL (0.2-1.0); TOTAL PROTEIN 7.9 g/dL (6.4-8.2)
[2020-11-21] MEDS ORDERED: MORPHINE SULFATE 10 MG/ML SYRINGE. SQ ONE (21:45)
[2020-11-21] MEDS ORDERED: MAGNESIUM HYDROXIDE 2,400 MG/30 ML ORAL.SUSP. PO ONE (21:45)
[2020-11-21] MEDS ORDERED: IV NORMAL SALINE 1,000ML 1,000 ML IV ONE (22:00)
[2020-11-21] MEDS ORDERED: ONDANSETRON PF 4 MG/2 ML VIAL. IVP PRN (22:00)
[2020-11-21] MEDS ORDERED: MORPHINE SULFATE 10 MG/ML SYRINGE. SQ PRN (22:00)
[2020-11-21] MEDS ORDERED: IV RINGERS SOLUTION,LACTATED 1,000 ML IV ONE (22:30)
[2020-11-21 22:54] VITALS: BP 115/71
--- NOTE | 2020-11-21 23:01 | RAD ---
Exam: CT of abdomen and pelvis INDICATION: Hematuria TECHNIQUE: Sequential axial images through the abdomen and pelvis obtained without IV contrast. Sagit angeline and coronal reformatted images were reconstructed from the axial data and reviewed. Comparisons: 11/03/2020 FINDINGS: Heart size is normal. No pericardial effusion. Visualized lung bases are clear. No pleural Evaluation of solid organs is limited secondary to noncontrast technique. Liver, spleen, pancreas and adrenals are unremarkable. No perinephric inflammation or hydronephrosis. No renal or ureteral calculi are identified. Bladder is partially distended and appears thin-walled. Uterus is absent. No abnormal adnexal mass. Large and small bowel are unremarkable. Appendix is normal. No free intra-abdominal air or fluid. No obstruction. Abdominal aorta has a normal course and caliber. No enlarged abdominal lymph nodes are identified. No suspicious osseous lesions or acute fractures. IMPRESSION: No renal or ureteral calculi. No evidence for obstructive uropathy. No acute process identified in th e abdomen or pelvis. Exposure: One or more of the following in the visualized dose reduction techniques were utilized for this examination: 1. Automated exposure control 2. Adjustment of the MA and/or KV according to patient size 3. Use of iterative of reconstructive technique Electronically signed by: Martha Ulloa MD (11/21/2020 10:58 PM) [facility]
[2020-11-21] MEDS ORDERED: INSULIN REGULAR VIAL 100 UNIT in IV NORMAL SALINE 100ML 100 ML IV PRN (23:15)
[2020-11-21 23:17] VITALS: BP 134/84
[2020-11-21] MEDS ORDERED: QUET400T4 PO (23:17)
[2020-11-21] MEDS ORDERED: ALPR2TAB2 PO (23:17)
[2020-11-21] MEDS ORDERED: QUEtiapine 100 MG TABLET. PO ONE (23:30)
[2020-11-21] MEDS ORDERED: GABAPENTIN 300 MG CAPSULE. PO ONE (23:30)
[2020-11-21] MEDS ORDERED: ALPRAZolam 0.5 MG TABLET PO ONE (23:30)
[2020-11-21] MEDS: IV NORMAL SALINE 1,000ML 1,000 ML IV SCH (23:30)
[2020-11-21] MEDS: MORPHINE SULFATE 2 MG/ML DISP.SYRIN. IV PRN (23:53)
[2020-11-22] VITALS (14 sets, daily range): BP systolic 99–130; BP diastolic 7–93
--- NOTE | 2020-11-22 03:29 | EKG ---
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
[2020-11-22] MEDS: IV NORMAL SALINE 1,000ML 1,000 ML IV SCH ×2 (05:47→15:51)
[2020-11-22] MEDS: IPRATRPIUM/ALBUTEROL 0.5/2.5MG 3 ML NEBU. NEB SCH ×4 (06:03→20:44)
[2020-11-22 07:09] LABS: BASO # 0.1 x10^3/uL (0.0-0.2); BASO % 1 % (0-3); EOS # 0.1 x10^3/uL (0.0-0.7); EOS % 1 % (0-3); HEMATOCRIT 42.6 % (36.0-47.0); HEMOGLOBIN 14.2 g/dL (12.0-15.5); LYMPH # 1.9 x10^3/uL (1.0-4.8); LYMPH % 23 % (24-48); MEAN CORPUSCULAR HEMOGLOBIN 31 pg (25-35); MEAN CORPUSCULAR HGB CONC 33 g/dL (31-37); MEAN CORPUSCULAR VOLUME 92 fL (79-100); MONO # 0.5 x10^3/uL (0.0-1.1); MONO % 7 % (0-9); NEUT # 5.5 x10^3uL (1.8-7.7); NEUT % 68 % (31-73); PLATELET COUNT 172 x10^3/uL (140-400); RED BLOOD COUNT 4.62 x10^6/uL (3.50-5.40); RED CELL DISTRIBUTION WIDTH 16.1 % (11.5-14.5); WHITE BLOOD COUNT 8.1 x10^3/uL (4.0-11.0)
[2020-11-22 07:17] LABS: CALCIUM 8.1 mg/dL (8.5-10.1); CREATININE 0.7 mg/dL (0.6-1.0); GFR 92.7; POTASSIUM 3.5 mmol/L (3.5-5.1)
[2020-11-22] MEDS ORDERED: DEXTROSE 50% 25 GM / 50ML DISP.SYRIN. IV PRN (08:00)
[2020-11-22] MEDS: INSULIN LISPRO 300 UNITS/3 ML VIAL. SQ SCH ×3 (08:45→17:00)
[2020-11-22] MEDS ORDERED: ACETAMINOPHEN 500 MG TABLET PO PRN (09:00)
[2020-11-22] MEDS ORDERED: UMEC1DIS IH (10:51)
[2020-11-22] MEDS ORDERED: NON FORMULARY ITEM (Umeclidinium Brm/Vilanterol Tr (Anoro Ellipta 62.5-25 Mcg Inh) 1 EACH) IH PRN (11:00)
[2020-11-22] MEDS ORDERED: ALPRAZolam 0.5 MG TABLET PO PRN (11:00)
--- NOTE | 2020-11-22 11:31 | HP ---
ADMIT DATE: 11/21/2020 HISTORY OF PRESENT ILLNESS: A 40-year-old female who came in through the Emergency Room with generalized complaint of severe elevated blood sugars. The patient's sugars over 500-600, apparently ran out of some materials for her insulin pump and began to have right flank pain. She usually goes to for her insulin pump. Also, has a history of RODRIGUEZ. The patient was admitted because of her dehydration, elevated sugars and control thereof. PAST MEDICAL HISTORY: Hypertension essential, RODRIGUEZ, hypotension, enteritis, pancreatitis, sleep apnea, CPAP, esophageal varices, obesity, GERD, diverticulitis, pancreatitis, sleep apnea, uterine prolapse, cervical cancer, hyperglycemia, bipolar disorder, fibromyalgia, chronic back pain, depression, suicide attempt on 09/28. The patient has also had nasal surgeries, tonsillectomy, hysterectomy, hernia surgeries, laparoscopic evaluations, esophageal varices, diverticulitis, hysterectomy, cholecystectomy, hernia surgery, morbid obesity, history of cervical cancer, breast reduction, kidney stones, urinary tract infection, hypoglycemia. Tetanus shot is unknown. FAMILY HISTORY: Positive for diabetes and atrial fibrillation. ALLERGIES: NONSTEROIDAL MEDICATIONS INCLUDING TORADOL, LEVAQUIN, SHELLFISH DERIVED, AND VANCOMYCIN. SOCIAL HISTORY: The patient has about [id number] history of smoking as well as occasional alcohol use. No hard drug use. The patient is a full code. REVIEW OF SYSTEMS: The patient denies any headaches, visual change, blurred vision, double vision. Denies any melena, hematochezia without hematemesis and neurologically otherwise intact. Does have the right flank pain. Denies nausea, vomiting, melena, hematochezia, hematemesis. PHYSICAL EXAMINATION: GENERAL: This is a pleasant white female looking ill. VITAL SIGNS: Blood pressure 140/70, respiratory rate 16, pulse 120, afebrile, room air. HEENT: The patient's head was atraumatic, normocephalic. Eyes: PERRLA without jaundice. The mouth and throat were normal. NECK: Supple, no JVD or thyromegaly. LUNGS: Diminished. Poor movement of air, but clear. CARDIOVASCULAR: Regular sinus rhythm, S1, S2. ABDOMEN: Soft, nontender, no rebound or guarding. Positive bowel sounds, no hepatosplenomegaly noted. EXTREMITIES: No clubbing, cyanosis or edema. NEUROLOGIC: The patient was alert and oriented x 3. LABORATORY DATA: CBC was normal. Blood sugar 620, elevated AST 42, ALT 114, alkaline phosphatase 153. Amylase and lipase normal. Sodium, potassium, BUN and creatinine are basically stable. Creatinine 1.1, GFR 55. She did have greater than 40 red blood cells per high powered field. CT scan of her abdomen and pelvis basically unremarkable. IMPRESSION: Severe hyperglycemia, dehydration, non-alcoholic steatohepatitis. PEDRO PABLO JORDAN MD DR: JOHN/andrés JOB#: [id number] / [id number]
[2020-11-22] MEDS: EMPAGLIFLOZIN 10 MG TABLET. PO SCH (11:52)
[2020-11-22] MEDS: buPROPion SR 100 MG TABLET.SA. PO SCH (11:52)
[2020-11-22] MEDS: DESVENLAFAXINE 50 MG TAB.ER.24H. PO SCH (11:53)
[2020-11-22] MEDS: FERROUS SULFATE 325 MG TABLET. PO SCH (11:57)
[2020-11-22] MEDS: MORPHINE SULFATE 2 MG/ML DISP.SYRIN. IV PRN ×2 (14:01→20:46)
[2020-11-22] MEDS: BUDESONIDE 0.5 MG/2 ML NEBU NEB SCH (20:44)
[2020-11-22] MEDS ORDERED: QUEtiapine 100 MG TABLET. PO SCH (21:00)
[2020-11-22] MEDS ORDERED: GABAPENTIN 300 MG CAPSULE. PO SCH (21:00)
[2020-11-23] MEDS: IV NORMAL SALINE 1,000ML 1,000 ML IV SCH ×2 (00:39→07:30)
[2020-11-23] MEDS: MORPHINE SULFATE 2 MG/ML DISP.SYRIN. IV PRN ×3 (02:23→07:52)
[2020-11-23 07:16] VITALS: BP 106/65
[2020-11-23] MEDS ORDERED: PANTOPRAZOLE 40 MG TABLET. PO SCH (07:30)
[2020-11-23] MEDS: EMPAGLIFLOZIN 10 MG TABLET. PO SCH (07:49)
[2020-11-23] MEDS: FERROUS SULFATE 325 MG TABLET. PO SCH (07:49)
[2020-11-23] MEDS: buPROPion SR 100 MG TABLET.SA. PO SCH (07:50)
[2020-11-23] MEDS: INSULIN LISPRO 300 UNITS/3 ML VIAL. SQ SCH ×2 (07:53→12:00)
[2020-11-23] MEDS: DESVENLAFAXINE 50 MG TAB.ER.24H. PO SCH (09:00)
[2020-11-23] MEDS: BUDESONIDE 0.5 MG/2 ML NEBU NEB SCH (10:02)
[2020-11-23 11:20] VITALS: BP 106/71
--- NOTE | 2020-11-23 13:30 | DS ---
DATE OF DISCHARGE: 11/23/2020 HOSPITAL COURSE: A 40-year-old female admitted with hyperglycemia, blood sugar was greater than 600. She ___ material for her insulin pump. She is a type 1 diabetic. The patient's sugars went over the 600, placed on an insulin drip, IV fluids for hydration. Blood pressure stabilized 106/61, respiratory rate 20, pulse 84 and afebrile. The patient's electrolytes were basically stable except for her blood sugar, which was markedly elevated at 620, came down into the lower 200, but she was going to restart her insulin pump here. In any case, the patient made good progress. She did complain of right flank pain. A CT scan was performed of the abdomen and pelvis, which was totally negative at that time. The patient made good progress. She was discharged home. IMPRESSION: Severe hyperglycemia, type 1 diabetes, dehydration, alcoholic steatosis, elevated liver enzymes, chronic kidney disease IIB. PLAN: The patient will be discharged, diabetic diet, insulin pump and make further evaluation on her as outpatient. PEDRO PABLO JORDAN MD DR: JOHN/andrés JOB#: [id number] / [id number]
== END 2020-11-23 12:39 | disposition home or self-care (01) | DRG 639 ==
LOC: ER 20:08 → ICU 21:45 → 1 SOUTH 11-22 17:00
PROVIDERS: ADMIT Family Medicine; ATTEND Family Medicine
DX: E10.65 Type 1 diabetes mellitus with hyperglycemia (principal); E78.00 Pure hypercholesterolemia, unspecified; E86.0 Dehydration; F31.9 Bipolar disorder, unspecified; K59.00 Constipation, unspecified; K75.81 Nonalcoholic steatohepatitis (NASH); M79.7 Fibromyalgia; M19.90 Unspecified osteoarthritis, unspecified site; K21.9 Gastro-esophageal reflux disease without esophagitis; G89.29 Other chronic pain; F41.9 Anxiety disorder, unspecified; N18.32 Chronic kidney disease, stage 3b; E10.22 Type 1 diabetes mellitus with diabetic chronic kidney disease; I12.9 Hypertensive chronic kidney disease with stage 1 through stage 4 chronic kidney disease, or unspecified chronic kidney disease; Z88.8 Allergy status to other drugs, medicaments and biological substances; Z91.041 Radiographic dye allergy status; Z91.013 Allergy to seafood; Z88.1 Allergy status to other antibiotic agents; Z79.4 Long term (current) use of insulin; Z91.14 Patient's other noncompliance with medication regimen; Z90.710 Acquired absence of both cervix and uterus; Z85.3 Personal history of malignant neoplasm of breast; Z85.41 Personal history of malignant neoplasm of cervix uteri; Z83.3 Family history of diabetes mellitus
CPT/HCPCS: 36415; 74022; 74176; 80048; 80076; 80307; 81001; 82150; 82550; 82803; 82947; 83690; 84484; 85025; 85610; 85730; 93005; 94640; 96365; 96372; 96375; 99285; J1815; J2270; J2405; J3490; J7030

== ENCOUNTER 2020-12-06 14:02 | Emergency (ER) | payer BC ==
[~2020-12-06] VITALS: Ht 162.6 cm; Wt 89.1 kg
[~2020-12-06 14:02] MED LIST changes: +QUET400T4 PO; +UMEC1DIS IH
[2020-12-06] MEDS ORDERED: MORPHINE SULFATE 4 MG/ML DISP.SYRIN. IV ONE (14:30)
[2020-12-06] MEDS ORDERED: ONDANSETRON PF 4 MG/2 ML VIAL. IVP ONE (14:45)
[2020-12-06] MEDS ORDERED: IOHEXOL 300 MG/ML 75 ML VIAL. IV ONE (15:15)
[2020-12-06 15:19] LABS: BASO % 0 % (0-3); EOS # 0.1 x10^3/uL (0.0-0.7); EOS % 1 % (0-3); HEMATOCRIT 44.2 % (36.0-47.0); HEMOGLOBIN 14.6 g/dL (12.0-15.5); LYMPH # 2.5 x10^3/uL (1.0-4.8); LYMPH % 22 % (24-48); MEAN CORPUSCULAR HEMOGLOBIN 30 pg (25-35); MEAN CORPUSCULAR HGB CONC 33 g/dL (31-37); MEAN CORPUSCULAR VOLUME 92 fL (79-100); MONO # 0.7 x10^3/uL (0.0-1.1); MONO % 6 % (0-9); NEUT # 8.3 x10^3uL (1.8-7.7); NEUT % 71 % (31-73); PLATELET COUNT 190 x10^3/uL (140-400); RED BLOOD COUNT 4.83 x10^6/uL (3.50-5.40); RED CELL DISTRIBUTION WIDTH 16.2 % (11.5-14.5); WHITE BLOOD COUNT 11.7 x10^3/uL (4.0-11.0)
[2020-12-06 15:25] LABS: CALCIUM 9.7 mg/dL (8.5-10.1); CREATININE 0.6 mg/dL (0.6-1.0); GFR 110.7
[2020-12-06 15:27] LABS: PLT ESTIMATE ADEQUATE (ADEQUATE)
[2020-12-06 15:29] LABS: BARBITURATES NEG (NEG); BENZODIAZEPINES POS (NEG); BILIRUBIN,URINE NEG (NEG); CANNABINOIDS NEG (NEG); CLARITY,URINE CLOUDY; COCAINE NEG (NEG); COLOR,URINE YELLOW; GLUCOSE,URINE >=1000 mg/dL (NEG); METHADONE NEG (NEG); NITRITE,URINE POS (NEG); OPIATES NEG (NEG); PHENCYCLIDINE NEG (NEG); UROBILINOGEN,URINE 0.2 mg/dL (0.2 mg/dL)
[2020-12-06 15:30] LABS: BACTERIA,URINE MANY /HPF (0-FEW); RBC,URINE OCC /HPF (0-2); SQUAMOUS EPITHELIAL CELL,UR MOD /LPF
[2020-12-06 15:31] LABS: ALBUMIN 3.3 g/dL (3.4-5.0); ALBUMIN/GLOBULIN RATIO 0.8 (1.0-1.7); TOTAL BILIRUBIN 0.5 mg/dL (0.2-1.0); TOTAL PROTEIN 7.2 g/dL (6.4-8.2)
[2020-12-06 15:32] LABS: AMPHETAMINE/METHAMPHETAMINE NEG (NEG)
[2020-12-06 15:41] VITALS: BP 109/69
--- NOTE | 2020-12-06 15:52 | RAD ---
CT abdomen and pelvis with contrast 12/06/2020. Reason for exam: Right lower quadrant pain. CT images were performed through the abdomen and pelvis using an infusion of 75 mL Omnipaque 300. No oral contrast was given. Exposure: One or more of the following individualized dose reduction techniq ues were utilized for this examination: 1. Automated exposure control 2. Adjustment of the mA and/o r kV according to patient size 3. Use of iterative reconstruction technique. Comparison is made with a study done 11/21/2020. FINDINGS: The lung bases are clear. The liver shows some fatty infiltration. No focal lesion is seen. The spleen appears normal. Both kidneys enhance with contrast. No mass or obstruction is seen. The a drenal glands are not enlarged. 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 The pancreas appears normal. No retroperitoneal or mesenteric adenopathy is seen. There is no appare nt abdominal mass or inflammatory process. A normal appendix is shown arising from the cecum. There i s no evidence of bowel obstruction. Images through the pelvis show no abnormality of the distal ureters or bladder. No pelvic or inguinal adenopathy is seen. There is no apparent pelvic mass or inflammatory process. IMPRESSION: No identified acute abnormality. (The patient has had approximately 30 CT abdomen and pelvis studies for similar complaints.) Electronically signed by: Tono Lynne Jr., MD (12/06/2020 3:50 PM) [id number]
[2020-12-06 16:10] LABS: ALBUMIN 3.3 g/dL (3.4-5.0); DIRECT BILIRUBIN 0.1 mg/dL (0.0-0.2); TOTAL BILIRUBIN 0.6 mg/dL (0.2-1.0); TOTAL PROTEIN 7.2 g/dL (6.4-8.2)
--- NOTE | 2020-12-06 16:50 | PHYS DOC ---
Past History Past Medical History: Anxiety, Arthritis, Depression, Diabetes, Fibromyalgia, High Cholesterol, Liver Disease, Other Additional Past Medical Histor: STAGE 3 RODRIGUEZ, HYdradenitis supperativa ,splenomegla, GASTRIC PORTAL HTN Past Surgical History: Cholecystectomy, Hysterectomy, Tonsillectomy Additional Past Surgical Histo: Hernia Smoking: Cigarettes, Less than 1pk/day Alcohol Use: None Drug Use: None Adult General Chief Complaint Chief Complaint: ABDOMINAL PAIN HPI HPI Patient is a 40-year-old female presents to the emergency department complaining of right lower quadrant pain has been going on for 2 days. Patient states that she always has abdominal pain that she rates a 4/10 pain on a 1-10 pain scale however patient states that 2 days ago there was a sudden onset of increased pain that brought it to a 10/10 pain scale patient states she had a normal BM yesterday without blood in her stool and she was not constipated. Patient states she feels a little nauseated, denies vomiting or diarrhea. Patient reports that she has been seen several times in the ER for abdominal pains, patient states that she just wants her pain to go away. Patient denies any chest pain, chest congestion, cough, recent fever or chills. Patient denies any other physical complaints or physical injuries. Review of Systems Review of Systems 14 body systems of review of systems have been reviewed. See HPI for pertinent positives and negative responses, otherwise all other systems are negative, nonpertinent or noncontributory. Current Medications Current Medications Current Medications Medications (Trade) Dose Ordered Sig/Yoko Start Time Stop Time Status Last Admin Dose Admin Iohexol (Omnipaque 300 Mg/ml) 75 ml 1X ONCE 12/06/20 15:15 12/06/20 15:16 DC 12/06/20 15:21 75 ML Morphine Sulfate (Morphine 4mg Syringe) 4 mg 1X ONCE 12/06/20 14:30 12/06/20 14:33 DC 12/06/20 14:52 4 MG Ondansetron HCl (Zofran) 4 mg 1X ONCE 12/06/20 14:45 12/06/20 14:46 DC 12/06/20 14:52 4 MG Allergies Allergies Allergies Coded Allergies Type Severity Reaction Last Updated Verified ketorolac Allergy Intermediate Itching 09/30/20 Yes levofloxacin Allergy Intermediate 09/30/20 Yes shellfish derived Allergy Intermediate Swelling 09/30/20 Yes vancomycin Allergy Intermediate 09/30/20 Yes I S O L A T I O N *CONTACT* Allergy Unknown 09/30/20 Yes NSAIDS (Non-Steroidal Anti-Inflamma Allergy Unknown 09/30/20 Yes Physical Exam Physical Exam Constitutional: Well developed, well nourished, no acute distress, non-toxic appearance. 40-year-old female in no apparent distress, patient's complaints of pain exceeds patient's physical presentation and appearance. HENT: Normocephalic, atraumatic, bilateral external ears normal, oropharynx moist, no oral exudates, nose normal. Eyes: PERRLA, EOMI, conjunctiva normal, no discharge. Neck: Normal range of motion, no tenderness, supple, no stridor. Cardiovascular:Heart rate regular rhythm, no murmur Lungs & Thorax: Bilateral breath sounds clear to auscultation Abdomen: Bowel sounds normal, soft, , no masses, no pulsatile masses. Pain to palpation right lower quadrant, no rebound tenderness, no Diane sign appreciated, McBurney's point tenderness pain to palpation, no ecchymotic areas appreciated. Skin: Warm, dry, no erythema, no rash. Back: No tenderness, no CVA tenderness. Extremities: No tenderness, no cyanosis, no clubbing, ROM intact, no edema. Neurologic: Alert and oriented X 3, normal motor function, normal sensory fu nction, no focal deficits noted. Psychologic: Affect normal, judgement normal, mood normal. Current Patient Data Vital Signs Vital Signs Date Time Temp Pulse Resp B/P (MAP) Pulse Ox O2 Delivery O2 Flow Rate FiO2 12/06/20 15:41 80 20 109/69 (82) 96 Room Air 12/06/20 14:10 98.2 Lab Results Laboratory Tests Test 12/06/20 14:35 12/06/20 14:45 White Blood Count 11.7 x10^3/uL Red Blood Count 4.83 x10^6/uL Hemoglobin 14.6 g/dL Hematocrit 44.2 % Mean Corpuscular Volume 92 fL Mean Corpuscular Hemoglobin 30 pg Mean Corpuscular Hemoglobin Concent 33 g/dL Red Cell Distribution Width 16.2 % Platelet Count 190 x10^3/uL Neutrophils (%) (Auto) 71 % Lymphocytes (%) (Auto) 22 % Monocytes (%) (Auto) 6 % Eosinophils (%) (Auto) 1 % Basophils (%) (Auto) 0 % Neutrophils # (Auto) 8.3 x10^3uL Lymphocytes # (Auto) 2.5 x10^3/uL Monocytes # (Auto) 0.7 x10^3/uL Eosinophils # (Auto) 0.1 x10^3/uL Basophils # (Auto) 0.0 x10^3/uL Platelet Estimate Adequate Urine Collection Type Unknown Urine Color Yellow Urine Clarity Cloudy Urine pH 5.5 Urine Specific [place] 1.015 Urine Protein Neg Urine Glucose (UA) >=1000 mg/dL Urine Ketones (Stick) Neg mg/dL Urine Blood Neg Urine Nitrite Pos Urine Bilirubin Neg Urine Urobilinogen Dipstick 0.2 mg/dL Urine Leukocyte Esterase Neg Urine RBC Occ /HPF Urine WBC 11-20 /HPF Urine Squamous Epithelial Cells Mod /LPF Urine Bacteria Many /HPF Sodium Level 142 mmol/L Potassium Level 4.0 mmol/L Chloride Level 104 mmol/L Carbon Dioxide Level 27 mmol/L Anion Gap 11 Blood Urea Nitrogen 11 mg/dL Creatinine 0.6 mg/dL Estimated GFR (Cockcroft-Gault) 110.7 BUN/Creatinine Ratio 18 Glucose Level 145 mg/dL Calcium Level 9.7 mg/dL Total Bilirubin 0.5 mg/dL 0.6 mg/dL Aspartate Amino Transf (AST/SGOT) 113 U/L 113 U/L Alanine Aminotransferase (ALT/SGPT) 141 U/L 142 U/L Alkaline Phosphatase 131 U/L 131 U/L Total Protein 7.2 g/dL 7.2 g/dL Albumin 3.3 g/dL 3.3 g/dL Albumin/Globulin Ratio 0.8 Lipase 95 U/L Urine Opiates Screen Neg Urine Methadone Screen Neg Urine Barbiturates Neg Urine Phencyclidine Screen Neg Urine Amphetamine/Methamphetamine Neg Urine Benzodiazepines Screen Pos Urine Cocaine Screen Neg Urine Cannabinoids Screen Neg Urine Ethyl Alcohol Neg Lactic Acid Level 1.3 mmol/L Direct Bilirubin 0.1 mg/dL Current Medications Medications (Trade) Dose Ordered Sig/Yoko Route PRN Reason Start Time Stop Time Status Last Admin Dose Admin Morphine Sulfate (Morphine 4mg Syringe) 4 mg 1X ONCE IV 12/06/20 14:30 12/06/20 14:33 DC 12/06/20 14:52 Ondansetron HCl (Zofran) 4 mg 1X ONCE IVP 12/06/20 14:45 12/06/20 14:46 DC 12/06/20 14:52 Iohexol (Omnipaque 300 Mg/ml) 75 ml 1X ONCE IV 12/06/20 15:15 12/06/20 15:16 DC 12/06/20 15:21 Laboratory Tests Test 12/06/20 14:35 12/06/20 14:45 White Blood Count 11.7 x10^3/uL (4.0-11.0) H Red Blood Count 4.83 x10^6/uL (3.50-5.40) Hemoglobin 14.6 g/dL (12.0-15.5) Hematocrit 44.2 % (36.0-47.0) Mean Corpuscular Volume 92 fL (79-100) Mean Corpuscular Hemoglobin 30 pg (25-35) Mean Corpuscular Hemoglobin Concent 33 g/dL (31-37) Red Cell Distribution Width 16.2 % (11.5-14.5) H Platelet Count 190 x10^3/uL (140-400) Neutrophils (%) (Auto) 71 % (31-73) Lymphocytes (%) (Auto) 22 % (24-48) L Monocytes (%) (Auto) 6 % (0-9) Eosinophils (%) (Auto) 1 % (0-3) Basophils (%) (Auto) 0 % (0-3) Neutrophils # (Auto) 8.3 x10^3uL (1.8-7.7) H Lymphocytes # (Auto) 2.5 x10^3/uL (1.0-4.8) Monocytes # (Auto) 0.7 x10^3/uL (0.0-1.1) Eosinophils # (Auto) 0.1 x10^3/uL (0.0-0.7) Basophils # (Auto) 0.0 x10^3/uL (0.0-0.2) Platelet Estimate Adequate (ADEQUATE) Urine Collection Type Unknown Urine Color Yellow Urine Clarity Cloudy Urine pH 5.5 Urine Specific [place] 1.015 Urine Protein Neg (NEG-TRACE) Urine Glucose (UA) >=1000 mg/dL (NEG) Urine Ketones (Stick) Neg mg/dL (NEG) Urine Blood Neg (NEG) Urine Nitrite Pos (NEG) Urine Bilirubin Neg (NEG) Urine Urobilinogen Dipstick 0.2 mg/dL (0.2 mg/dL) Urine Leukocyte Esterase Neg (NEG) Urine RBC Occ /HPF (0-2) Urine WBC 11-20 /HPF (0-4) Urine Squamous Epithelial Cells Mod /LPF Urine Bacteria Many /HPF (0-FEW) Sodium Level 142 mmol/L (136-145) Potassium Level 4.0 mmol/L (3.5-5.1) Chloride Level 104 mmol/L (98-107) Carbon Dioxide Level 27 mmol/L (21-32) Anion Gap 11 (6-14) Blood Urea Nitrogen 11 mg/dL (7-20) Creatinine 0.6 mg/dL (0.6-1.0) Estimated GFR (Cockcroft-Gault) 110.7 BUN/Creatinine Ratio 18 (6-20) Glucose Level 145 mg/dL (70-99) H Calcium Level 9.7 mg/dL (8.5-10.1) Total Bilirubin 0.5 mg/dL (0.2-1.0) 0.6 mg/dL (0.2-1.0) Aspartate Amino Transferase (AST) 113 U/L (15-37) H 113 U/L (15-37) H Alanine Aminotransferase (ALT) 141 U/L (14-59) H 142 U/L (14-59) H Alkaline Phosphatase 131 U/L (46-116) H 131 U/L (46-116) H Total Protein 7.2 g/dL (6.4-8.2) 7.2 g/dL (6.4-8.2) Albumin 3.3 g/dL (3.4-5.0) L 3.3 g/dL (3.4-5.0) L Albumin/Globulin Ratio 0.8 (1.0-1.7) L Lipase 95 U/L (73-393) Urine Opiates Screen Neg (NEG) Urine Methadone Screen Neg (NEG) Urine Barbiturates Neg (NEG) Urine Phencyclidine Screen Neg (NEG) Urine Amphetamine/Methamphetamine Neg (NEG) Urine Benzodiazepines Screen Pos (NEG) Urine Cocaine Screen Neg (NEG) Urine Cannabinoids Screen Neg (NEG) Urine Ethyl Alcohol Neg (NEG) Lactic Acid Level 1.3 mmol/L (0.4-2.0) Direct Bilirubin 0.1 mg/dL (0.0-0.2) EKG EKG [] Radiology/Procedures Radiology/Procedures []PATIENT: SANFORD RANDHAWA MACCOUNT: [id number]#: [id number] : 1980 LOCATION: ER AGE: 40 SEX: F EXAM STATUS: REG ER ORD. PHYSICIAN: ROGER GARCIA APRN REASON: RIGHT LOWER QUADRANT PAIN PROCEDURE: CT ABD PELV W/ IV CONTRST ONLY CT abdomen and pelvis with contrast 12/06/2020. Reason for exam: Right lower quadrant pain. CT images were performed through the abdomen and pelvis using an infusion of 75 mL Omnipaque 300. No oral contrast was given. Exposure: One or more of the following individualized dose reduction techniques were utilized for this examination: 1. Automated exposure control 2. Adjustment of the mA and/or kV according to patient size 3. Use of iterative reconstruction technique. Comparison is made with a study done 11/21/2020. FINDINGS: The lung bases are clear. The liver shows some fatty infiltration. No focal lesion is seen. The spleen appears normal. Both kidneys enhance with contrast. No mass or obstruction is seen. The adrenal glands are not enlarged. 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 The pancreas appears normal. No retroperitoneal or mesenteric adenopathy is seen. There is no apparent abdominal mass or inflammatory process. A normal appendix is shown arising from the cecum. There is no evidence of bowel obstruction. Images through the pelvis show no abnormality of the distal ureters or bladder. No pelvic or inguinal adenopathy is seen. There is no apparent pelvic mass or inflammatory process. IMPRESSION: No identified acute abnormality. (The patient has had approximately 30 CT abdomen and pelvis studies for similar complaints.) Electronically signed by: Wanda Lynne Jr., MD (12/06/2020 3:50 PM) [id number] DICTATED AND SIGNED BY: WANDA LYNNE Jr, MD DATE: 12/06/20 1539 CC: ROGER GARCIA APRN; PEDRO PABLO JORDAN MD ~MTH0 0 Heart Score Risk Factors: Risk Factors: DM, Current or recent (<one month) smoker, HTN, HLP, family history of CAD, obesity. Risk Scores: Risk Factors: DM, Current or recent (<one month) smoker, HTN, HLP, family history of CAD, obesity. Course & Med Decision Making Course & Med Decision Making Pertinent Labs and Imaging studies reviewed. (See chart for details) 40-year-old female, vital signs reviewed, presents to the emergency department with concerns of sudden increase of her normal abdominal pains. Patient's physical exam was concerning for possible appendicitis. A abdominal work-up was started in the ED. Patient's CT abdomen reports equivocal for house radiologist interpretation, patient's urine was in fact infected, patient's lab work nonconcerning for acute infectious process. We will treat for urinary tract infection. Upon reexamination of the patient, patient states she has had good pain relief rating her pain a 4/10 on a 1-10 pain scale, patient's pain is now baseline, patient gave verbal understanding of discharge home instructions, antibiotic use for urinary tract infection, see primary care this week, return to ER precautions or concerns. Patient was discharged home without incident. Dragon Disclaimer Dragon Disclaimer This electronic medical record was generated, in whole or in part, using a voice recognition dictation system. Departure Departure: Impression: Primary Impression: Urinary tract infection Additional Impressions: RODRIGUEZ (nonalcoholic steatohepatitis) Right lower quadrant abdominal pain Disposition: 01 DC HOME SELF CARE/HOMELESS Condition: GOOD Referrals: PEDRO PABLO JORDAN MD (PCP) Patient Instructions: Urinary Tract Infection Additional Instructions: Your emergency department work-up and lab results were concerning for a urinary tract infection, please take antibiotics as prescribed, follow-up with your primary care doctor or staff scientist for ongoing abdominal aches and pains, return to the emergency department for worsening symptoms or other concerns. EMERGENCY DEPARTMENT GENERAL DISCHARGE INSTRUCTIONS Thank you for coming to [facility] (ED) today and trusting us with you care. We trust that you had a positivie experience in our Emergency Department. If you wish to speak to the department management, you may call the director at [phone]. YOUR FOLLOW UP INSTRUCTIONS ARE FOLLOWS: 1. Do you have a private Doctor? If you do not have a private doctor, please ask for a resource list of physicians or clinics that may be able to assist you with follow up care. 2. The Emergency Physician has interpreted your x-rays. The X-Ray specialist will also review them. If there is a change in the findings, you will be notified in 48 hours when at all possible. 3. A lab test or culture has been done, your results will be reviewed and you will be notified if you need a change in treatment. ADDITIONAL INSTRUCTIONS AND INFORMATION: 1. Your care today has been supervised by a physician who is specially trained in emergency care. Many problems require more than one evaluation for a complete diagnosis and treatment. We recommend that you schedule your follow up appointment as recommended to ensure complete treatment of you illness or injury. If you are unable to obtain follow up care and continue to have a problem, or if your condition worsens, we recommend that you return to the ED. 2. We are not able to safely determine your condition over the phone nor are we able to give sound medical advice over the phone. For these safety reasons, if you call for medical advice we will ask you to come to the ED for further evaluation. 3. If you have any questions regarding these discharge instructions please call the ED at [phone]. SAFETY INFORMATION: In the interest of safety, wellness, and injury prevention; we encourage you to wear your sealbelt, if you smoke; quite smoking, and we encourage family to use a protective helmet for bicycling and other sporting events that present an increased risk for head injury. IF YOUR SYMPTOMS WORSEN OR NEW SYMPTOMS DEVELOP, OR YOU HAVE CONCERNS ABOUT YOUR CONDITION; OR IF YOUR CONDITION WORSENS WHILE YOU ARE WAITING FOR YOUR FOLLOW UP APPOINTMENT; EITHER CONTACT YOUR PRIMARY CARE DOCTOR, THE PHYSICIAN WHOSE NAME AND NUMBER YOU WERE GIVEN, OR RETURN TO THE ED IMMEDIATELY. Scripts Cephalexin (CEPHALEXIN) 500 Mg Tablet 1 TAB PO BID for URINARY TRACT INFECTION for 7 Days, #14 TAB 0 Refills Prov: ROGER GARCIA APRN 12/06/20 Problem Qualifiers Primary Impression: Urinary tract infection Urinary tract infection type: site unspecified Hematuria presence: without hematuria Qualified Codes: N39.0 - Urinary tract infection, site not specified ROGER GARCIA APRN Dec 06, 2020 16:50
[2020-12-06] MEDS ORDERED: CEPH500T PO (17:00)
== END 2020-12-06 17:10 | disposition home or self-care (01) ==
LOC: ER 14:02
DX: N39.0 Urinary tract infection, site not specified (principal); E11.22 Type 2 diabetes mellitus with diabetic chronic kidney disease; N18.30 Chronic kidney disease, stage 3 unspecified; E78.00 Pure hypercholesterolemia, unspecified; F17.210 Nicotine dependence, cigarettes, uncomplicated; Z90.49 Acquired absence of other specified parts of digestive tract; Z90.710 Acquired absence of both cervix and uterus; Z98.890 Other specified postprocedural states
CPT/HCPCS: 36415; 74177; 80053; 80076; 80307; 81001; 83605; 83690; 85025; 87086; 96374; 96375; 99285; J2270; J2405; Q9967

== ENCOUNTER 2021-01-31 10:56 | Emergency (ER) | payer BC ==
[~2021-01-31] VITALS: Ht 162.6 cm; Wt 89.1 kg
[2021-01-31 10:56] VITALS: BP 120/77
[~2021-01-31 10:56] MED LIST changes: +CEPH500T PO
--- NOTE | 2021-01-31 12:11 | RAD ---
PQRS Compliance Statement: One or more of the following individualized dose reduction techniques were utilized for this examinat ion: 1. Automated exposure control 2. Adjustment of the mA and/or kV according to patient size 3. Use of iterative reconstruction technique CT THORAX WO, CT NECK SOFT TISSUE WITHOUT CONTRAST Clinical Indication: Reason: recent implant with pain / Comparison: CT chest with contrast August 12, 2020. TECHNIQUE: Helical CT imaging of the neck and chest is performed without IV contrast. Findings: Visualized brain is without midline shift or mass effect. The globes and orbits are intact. Moderate left and mild right mucosal thickening of the maxillary sinuses. There is no cervical adenopathy. The thyroid is symmetric. There is right chest battery pack. There is nerve stimulator device with lead coursing from the batte ry pack into the right neck terminating just medial to the right submandibular gland. A few bubbles o f subcutaneous air along the lead are probably postprocedural. There is a second lead that terminates right subpectoral. There is mild subcutaneous air along this lead. There is subcutaneous induration surrounding the battery pack that may be postprocedural. An abscess is not identified. Mild reversal of normal cervical lordosis may be positional or due to muscle spasm. There are multiple subcentimeter mediastinal lymph nodes. The great vessels are normal caliber. Cardi ac size normal, no pericardial effusion. The central airways are essentially patent. There is moderate bilateral lower lobe atelectasis. No pn eumothorax. Cholecystectomy. There is stable left adrenal myelolipoma that does not require follow-up. Thoracic spine alignment is maintained. IMPRESSION: 1. There is right chest battery pack with one lead terminating subpectoral and another terminating r ight submandibular. Bubbles of air along the leads are probably postprocedural. Mild induration surro unding the battery pack may also be postprocedural but cannot exclude cellulitis. No evidence of absc ess. 2. Moderate bilateral lower lobe atelectasis. Electronically signed by: Arun Cavanaugh MD (01/31/2021 12:08 PM) [id number]
--- NOTE | 2021-01-31 13:01 | PHYS DOC ---
Past History Past Medical History: Anxiety, Arthritis, Depression, Diabetes, Fibromyalgia, High Cholesterol, Hypertension, Liver Disease, Other Additional Past Medical Histor: STAGE 3 RODRIGUEZ, HYdradenitis supperativa,splenomegla, GASTRIC PORTAL HTN Past Surgical History: Cholecystectomy, Hysterectomy, Tonsillectomy, Other Additional Past Surgical Histo: Hernia Smoking: Cigarettes, Less than 1pk/day Alcohol Use: None Drug Use: None Adult General Chief Complaint Chief Complaint: POST-OP PROBLEM HPI HPI Patient is a 40-year-old female with multiple medical problems who presents to the emergency room complaining of postop pain. Patient had the inspire device placed at [facility] about a week ago. Her skin reacted to the soap of the used to clean her and she has had some redness on her chest since the procedure. She states that her pain is getting worse and not getting any better. She has been taking her pain medicine at home but it does not help. She called her surgeon who told her to come to [facility] but she states she does not have a ride there. She denies any shortness of breath. She states that she has a deep sore throat. She denies issues with swallowing or talking. She is eating without difficulty. She is requesting food and drink here in the emergency room. Review of Systems Review of Systems Complete ROS is negative unless otherwise documented in HPI Allergies Allergies Allergies Coded Allergies Type Severity Reaction Last Updated Verified ketorolac Allergy Intermediate Itching 09/30/20 Yes levofloxacin Allergy Intermediate 09/30/20 Yes shellfish derived Allergy Intermediate Swelling 09/30/20 Yes vancomycin Allergy Intermediate 09/30/20 Yes I S O L A T I O N *CONTACT* Allergy Unknown 09/30/20 Yes NSAIDS (Non-Steroidal Anti-Inflamma Allergy Unknown 09/30/20 Yes Physical Exam Physical Exam General: Awake, alert, NAD. Well Nourished, well hydrated. Cooperative HEENT: Atraumatic, EOMI, PERRL, airway patent, moist oral mucosa Neck: Supple, trachea midline, no swelling, no stridor Respiratory: CTA bilaterally, normal effort, no wheezing/crackles, dressing in place in right chest with some surrounding erythema consistent with contact dermatitis CV: RRR, no murmur, cap refill <2 GI: Soft, nondistended, nontender, no masses MSK: No obvious deformities Skin: Warm, dry, intact Neuro: A&O x3, speech NL, sensory and motor grossly intact, no focal deficits Psych: Normal affect, normal mood, not suicidal or homicidal Current Patient Data Vital Signs Vital Signs Date Time Temp Pulse Resp B/P (MAP) Pulse Ox O2 Delivery O2 Flow Rate FiO2 01/31/21 10:56 98.0 95 18 120/77 (91) 98 Room Air EKG EKG [] Radiology/Procedures Radiology/Procedures [] Heart Score C/O Chest Pain: N/A Risk Factors: Risk Factors: DM, Current or recent (<one month) smoker, HTN, HLP, family history of CAD, obesity. Risk Scores: Risk Factors: DM, Current or recent (<one month) smoker, HTN, HLP, family history of CAD, obesity. Course & Med Decision Making Course & Med Decision Making Pertinent Labs and Imaging studies reviewed. (See chart for details) Patient is a 40-year-old female who presents to the emergency room complaining of postop pain. Patient is well-appearing. CT will be ordered of the neck and chest to rule out any postop complications. I discussed with the patient that she needs to follow-up with her surgeon for further pain management. Patient would like to leave AMA. Patient has requested to leave AGAINST MEDICAL ADVICE. I have discussed the benefits of staying for a full work up and the patient would like to leave. I discussed the risks of leaving including but not limited to , permenant end-organ damage, worsening of condition and patient stated understanding. Patient signed out against medical advice. Dragon Disclaimer Dragon Disclaimer This electronic medical record was generated, in whole or in part, using a voice recognition dictation system. Departure Departure: Impression: Primary Impression: Left against medical advice Additional Impression: Post-op pain Disposition: LEFT AGAINST MEDICAL ADVICE Condition: GUARDED Referrals: PEDRO PABLO JORDAN MD (PCP) Problem Qualifiers MARIA DEL ROSARIO DAMON MD Jan 31, 2021 13:01
== END 2021-01-31 11:54 | disposition left against medical advice (07) ==
LOC: ER 10:56
DX: G89.18 Other acute postprocedural pain (principal); R07.89 Other chest pain; I10 Essential (primary) hypertension; E11.9 Type 2 diabetes mellitus without complications; E78.00 Pure hypercholesterolemia, unspecified; K75.81 Nonalcoholic steatohepatitis (NASH); F17.210 Nicotine dependence, cigarettes, uncomplicated; Z88.1 Allergy status to other antibiotic agents; Z88.6 Allergy status to analgesic agent; Z91.041 Radiographic dye allergy status; Z91.013 Allergy to seafood
CPT/HCPCS: 70490; 71250; 99285-25

== ENCOUNTER 2021-02-06 14:51 | Emergency (ER) | payer BC ==
[~2021-02-06] VITALS: Ht 162.6 cm; Wt 89.1 kg
[2021-02-06 15:29] LABS: BASO # 0.1 x10^3/uL (0.0-0.2); BASO % 1 % (0-3); EOS # 0.1 x10^3/uL (0.0-0.7); EOS % 1 % (0-3); HEMATOCRIT 45.4 % (36.0-47.0); HEMOGLOBIN 15.3 g/dL (12.0-15.5); LYMPH # 3.5 x10^3/uL (1.0-4.8); LYMPH % 43 % (24-48); MEAN CORPUSCULAR HEMOGLOBIN 31 pg (25-35); MEAN CORPUSCULAR HGB CONC 34 g/dL (31-37); MEAN CORPUSCULAR VOLUME 91 fL (79-100); MONO # 0.3 x10^3/uL (0.0-1.1); MONO % 3 % (0-9); NEUT # 4.2 x10^3uL (1.8-7.7); NEUT % 52 % (31-73); PLATELET COUNT 264 x10^3/uL (140-400); RED BLOOD COUNT 4.99 x10^6/uL (3.50-5.40); RED CELL DISTRIBUTION WIDTH 16.6 % (11.5-14.5); WHITE BLOOD COUNT 8.2 x10^3/uL (4.0-11.0)
[2021-02-06] MEDS ORDERED: IV DEXTROSE 5% - 0.9 % NACL 500 ML IV ONE (15:45)
[2021-02-06 15:49] LABS: CREATININE 0.8 mg/dL (0.6-1.0); GFR 79.4; TOTAL BILIRUBIN 0.3 mg/dL (0.2-1.0); TOTAL PROTEIN 7.8 g/dL (6.4-8.2)
[2021-02-06 16:06] LABS: ALBUMIN 3.7 g/dL (3.4-5.0); ALBUMIN/GLOBULIN RATIO 0.9 (1.0-1.7); CALCIUM 9.3 mg/dL (8.5-10.1)
[2021-02-06 16:08] LABS: POTASSIUM 2.7 mmol/L (3.5-5.1)
[2021-02-06] MEDS ORDERED: POTASSIUM CHLORIDE 20 MEQ TABLET.ER. PO ONE (16:15)
[2021-02-06] MEDS ORDERED: ONDANSETRON ODT 4 MG TAB.RAPDIS PO ONE (16:45)
[2021-02-06] MEDS ORDERED: GLUCAGON,HUMAN RECOMBINANT 1 MG KIT. IV ONE (17:00)
[2021-02-06 17:40] VITALS: BP 114/63
--- NOTE | 2021-02-06 18:06 | PHYS DOC ---
Past History Past Medical History: Anxiety, Arthritis, Depression, Diabetes, Fibromyalgia, High Cholesterol, Hypertension, Liver Disease, Other Additional Past Medical Histor: STAGE 3 RODRIGUEZ, HYdradenitis supperativa,splenomegla, GASTRIC PORTAL HTN Past Surgical History: Cholecystectomy, Hysterectomy, Tonsillectomy, Other Additional Past Surgical Histo: Hernia Smoking: Cigarettes, Less than 1pk/day Alcohol Use: None Drug Use: None Adult General Chief Complaint Chief Complaint: BLOOD SUGAR PROBLEM HPI HPI Patient is a 40-year-old female reports emergency department complaining of low blood sugar at home. Patient states that she no longer uses an insulin pump and has only taken Jardiance at this time. Patient reports a past surgical history of having neck surgery by ENT specialist Dr. Mercado at [facility] a week and a half ago to place a device that will assist her sleep apnea. Patient denies any chest pain, shortness of breath, recent fever or chills, denies dizziness, denies visual changes. Patient denies any other physical complaints or physical concerns. Patient states her blood sugar at home was 40. Review of Systems Review of Systems 14 body systems of review of systems have been reviewed. See HPI for pertinent positives and negative responses, otherwise all other systems are negative, nonpertinent or noncontributory. Current Medications Current Medications Current Medications Medications (Trade) Dose Ordered Sig/Yoko Start Time Stop Time Status Last Admin Dose Admin Dextrose/Sodium Chloride 500 ml @ 0 mls/hr 1X ONCE 02/06/21 15:45 02/06/21 15:46 DC 02/06/21 15:37 500 MLS/HR Glucagon (Glucagen Kit) 1 mg 1X ONCE 02/06/21 17:00 02/06/21 17:01 DC 02/06/21 16:52 1 MG Ondansetron HCl (Zofran Odt) 4 mg 1X ONCE 02/06/21 16:45 02/06/21 16:46 DC 02/06/21 16:52 4 MG Potassium Chloride (Klor-Con) 40 meq 1X ONCE 02/06/21 16:15 02/06/21 16:18 DC 02/06/21 16:52 40 MEQ Allergies Allergies Allergies Coded Allergies Type Severity Reaction Last Updated Verified ketorolac Allergy Intermediate Itching 09/30/20 Yes levofloxacin Allergy Intermediate 09/30/20 Yes shellfish derived Allergy Intermediate Swelling 09/30/20 Yes vancomycin Allergy Intermediate 09/30/20 Yes I S O L A T I O N *CONTACT* Allergy Unknown 09/30/20 Yes NSAIDS (Non-Steroidal Anti-Inflamma Allergy Unknown 09/30/20 Yes Physical Exam Physical Exam Constitutional: Well developed, well nourished, no acute distress, non-toxic appearance. 40-year-old female no apparent distress. HENT: Normocephalic, atraumatic, bilateral external ears normal, oropharynx moist, no oral exudates, nose normal. Eyes: PERRLA, EOMI, conjunctiva normal, no discharge. Neck: Normal range of motion, no tenderness, supple, no stridor. Anterior section of the neck has well-healing surgical scar. Cardiovascular:Heart rate regular rhythm, no murmur Lungs & Thorax: Bilateral breath sounds clear to auscultation Abdomen: Bowel sounds normal, soft, no tenderness, no masses, no pulsatile masses. Skin: Warm, dry, no erythema, no rash. See neck note for skin exam. Back: No tenderness, no CVA tenderness. Extremities: No tenderness, no cyanosis, no clubbing, ROM intact, no edema. Neurologic: Alert and oriented X 3, normal motor function, normal sensory function, no focal deficits noted. Psychologic: Affect normal, judgement normal, mood normal. Current Patient Data Vital Signs Vital Signs Date Time Temp Pulse Resp B/P (MAP) Pulse Ox O2 Delivery O2 Flow Rate FiO2 02/06/21 17:40 67 16 114/63 (80) 98 Room Air 02/06/21 15:13 97.7 Lab Results Laboratory Tests Test 02/06/21 15:02 02/06/21 15:09 02/06/21 15:33 02/06/21 16:47 Glucose (Fingerstick) 89 mg/dL 45 mg/dL 65 mg/dL White Blood Count 8.2 x10^3/uL Red Blood Count 4.99 x10^6/uL Hemoglobin 15.3 g/dL Hematocrit 45.4 % Mean Corpuscular Volume 91 fL Mean Corpuscular Hemoglobin 31 pg Mean Corpuscular Hemoglobin Concent 34 g/dL Red Cell Distribution Width 16.6 % Platelet Count 264 x10^3/uL Neutrophils (%) (Auto) 52 % Lymphocytes (%) (Auto) 43 % Monocytes (%) (Auto) 3 % Eosinophils (%) (Auto) 1 % Basophils (%) (Auto) 1 % Neutrophils # (Auto) 4.2 x10^3uL Lymphocytes # (Auto) 3.5 x10^3/uL Monocytes # (Auto) 0.3 x10^3/uL Eosinophils # (Auto) 0.1 x10^3/uL Basophils # (Auto) 0.1 x10^3/uL Sodium Level 145 mmol/L Potassium Level 2.7 mmol/L Chloride Level 106 mmol/L Carbon Dioxide Level 25 mmol/L Anion Gap 14 Blood Urea Nitrogen 8 mg/dL Creatinine 0.8 mg/dL Estimated GFR (Cockcroft-Gault) 79.4 BUN/Creatinine Ratio 10 Glucose Level 73 mg/dL Calcium Level 9.3 mg/dL Total Bilirubin 0.3 mg/dL Aspartate Amino Transf (AST/SGOT) 70 U/L Alanine Aminotransferase (ALT/SGPT) 68 U/L Alkaline Phosphatase 169 U/L Total Protein 7.8 g/dL Albumin 3.7 g/dL Albumin/Globulin Ratio 0.9 Test 02/06/21 17:50 Glucose (Fingerstick) 107 mg/dL Current Medications Medications (Trade) Dose Ordered Sig/Yoko Route PRN Reason Start Time Stop Time Status Last Admin Dose Admin Dextrose/Sodium Chloride 500 ml @ 0 mls/hr 1X ONCE IV 02/06/21 15:45 02/06/21 15:46 DC 02/06/21 15:37 500 MLS/HR Potassium Chloride (Klor-Con) 40 meq 1X ONCE PO 02/06/21 16:15 02/06/21 16:18 DC 02/06/21 16:52 40 MEQ Ondansetron HCl (Zofran Odt) 4 mg 1X ONCE PO 02/06/21 16:45 02/06/21 16:46 DC 02/06/21 16:52 4 MG Glucagon (Glucagen Kit) 1 mg 1X ONCE IV 02/06/21 17:00 02/06/21 17:01 DC 02/06/21 16:52 1 MG Laboratory Tests Test 02/06/21 15:02 02/06/21 15:09 02/06/21 15:33 02/06/21 16:47 Glucose (Fingerstick) 89 mg/dL (70-99) 45 mg/dL (70-99) L 65 mg/dL (70-99) L White Blood Count 8.2 x10^3/uL (4.0-11.0) Red Blood Count 4.99 x10^6/uL (3.50-5.40) Hemoglobin 15.3 g/dL (12.0-15.5) Hematocrit 45.4 % (36.0-47.0) Mean Corpuscular Volume 91 fL (79-100) Mean Corpuscular Hemoglobin 31 pg (25-35) Mean Corpuscular Hemoglobin Concent 34 g/dL (31-37) Red Cell Distribution Width 16.6 % (11.5-14.5) H Platelet Count 264 x10^3/uL (140-400) Neutrophils (%) (Auto) 52 % (31-73) Lymphocytes (%) (Auto) 43 % (24-48) Monocytes (%) (Auto) 3 % (0-9) Eosinophils (%) (Auto) 1 % (0-3) Basophils (%) (Auto) 1 % (0-3) Neutrophils # (Auto) 4.2 x10^3uL (1.8-7.7) Lymphocytes # (Auto) 3.5 x10^3/uL (1.0-4.8) Monocytes # (Auto) 0.3 x10^3/uL (0.0-1.1) Eosinophils # (Auto) 0.1 x10^3/uL (0.0-0.7) Basophils # (Auto) 0.1 x10^3/uL (0.0-0.2) Sodium Level 145 mmol/L (136-145) Potassium Level 2.7 mmol/L (3.5-5.1) *L Chloride Level 106 mmol/L (98-107) Carbon Dioxide Level 25 mmol/L (21-32) Anion Gap 14 (6-14) Blood Urea Nitrogen 8 mg/dL (7-20) Creatinine 0.8 mg/dL (0.6-1.0) Estimated GFR (Cockcroft-Gault) 79.4 BUN/Creatinine Ratio 10 (6-20) Glucose Level 73 mg/dL (70-99) Calcium Level 9.3 mg/dL (8.5-10.1) Total Bilirubin 0.3 mg/dL (0.2-1.0) Aspartate Amino Transferase (AST) 70 U/L (15-37) H Alanine Aminotransferase (ALT) 68 U/L (14-59) H Alkaline Phosphatase 169 U/L (46-116) H Total Protein 7.8 g/dL (6.4-8.2) Albumin 3.7 g/dL (3.4-5.0) Albumin/Globulin Ratio 0.9 (1.0-1.7) L Test 02/06/21 17:50 Glucose (Fingerstick) 107 mg/dL (70-99) H EKG EKG [] Radiology/Procedures Radiology/Procedures [] Heart Score C/O Chest Pain: No Risk Factors: Risk Factors: DM, Current or recent (<one month) smoker, HTN, HLP, family history of CAD, obesity. Risk Scores: Risk Factors: DM, Current or recent (<one month) smoker, HTN, HLP, family history of CAD, obesity. Course & Med Decision Making Course & Med Decision Making Pertinent Labs and Imaging studies reviewed. (See chart for details) 40-year-old female, vital signs reviewed, presents emergency department with complaints of low blood sugar. Patient's blood sugar on arrival to the emergency department was 89, ED plan will order CBC CMP, give patient orange juice and something to eat while labs are pending. ED television analyzer reported patient's blood sugar now 45, 500 cc D5 NS ordered. ED television analyzer reported blood sugar 65, an additional 500 cc D5 NS ordered, also order 1 mg glucagon IV. Patient remains alert and oriented, in no apparent distress, patient is nontoxic in appearance. ED plan will reevaluate blood sugar after period of time. After period of time, patient's repeat blood sugar equals 107, patient states she feels much better and wishes to go home at this time. Patient has no further complaints or concerns. Patient gave verbal understanding of discharge home instructions, follow-up with her primary care physician related to her intermittent periods of hypoglycemia, return to ER precautions or concerns, patient had no further questions or concerns and was discharged home without incident. Dragon Disclaimer Dragon Disclaimer This electronic medical record was generated, in whole or in part, using a voice recognition dictation system. Departure Departure: Impression: Primary Impression: Hypoglycemia Disposition: HOME / SELF CARE / HOMELESS Condition: GOOD Referrals: PEDRO PABLO JORDAN MD (PCP) Additional Instructions: You were seen and treated in the emergency department today for hypoglycemic episodes. Please follow Dr. Jordan related to these episodes as he may adjust your diabetic medications. Return to the emergency department for worsening symptoms or other concerns. EMERGENCY DEPARTMENT GENERAL DISCHARGE INSTRUCTIONS Thank you for coming to [facility] (ED) today and trusting us with you care. We trust that you had a positivie experience in our Emergency Department. If you wish to speak to the department management, you may call the director at [phone]. YOUR FOLLOW UP INSTRUCTIONS ARE FOLLOWS: 1. Do you have a private Doctor? If you do not have a private doctor, please ask for a resource list of physicians or clinics that may be able to assist you with follow up care. 2. The Emergency Physician has interpreted your x-rays. The X-Ray specialist will also review them. If there is a change in the findings, you will be notified in 48 hours when at all possible. 3. A lab test or culture has been done, your results will be reviewed and you will be notified if you need a change in treatment. ADDITIONAL INSTRUCTIONS AND INFORMATION: 1. Your care today has been supervised by a physician who is specially trained in emergency care. Many problems require more than one evaluation for a complete diagnosis and treatment. We recommend that you schedule your follow up appointment as recomme nded to ensure complete treatment of you illness or injury. If you are unable to obtain follow up care and continue to have a problem, or if your condition worsens, we recommend that you return to the ED. 2. We are not able to safely determine your condition over the phone nor are we able to give sound medical advice over the phone. For these safety reasons, if you call for medical advice we will ask you to come to the ED for further evaluation. 3. If you have any questions regarding these discharge instructions please call the ED at [phone]. SAFETY INFORMATION: In the interest of safety, wellness, and injury prevention; we encourage you to wear your sealbelt, if you smoke; quite smoking, and we encourage family to use a protective helmet for bicycling and other sporting events that present an increased risk for head injury. IF YOUR SYMPTOMS WORSEN OR NEW SYMPTOMS DEVELOP, OR YOU HAVE CONCERNS ABOUT YOUR CONDITION; OR IF YOUR CONDITION WORSENS WHILE YOU ARE WAITING FOR YOUR FOLLOW UP APPOINTMENT; EITHER CONTACT YOUR PRIMARY CARE DOCTOR, THE PHYSICIAN WHOSE NAME AND NUMBER YOU WERE GIVEN, OR RETURN TO THE ED IMMEDIATELY. ROGER GARCIA APRN Feb 06, 2021 18:06
== END 2021-02-06 18:09 | disposition home or self-care (01) ==
LOC: ER 14:51
DX: E11.649 Type 2 diabetes mellitus with hypoglycemia without coma (principal); F41.9 Anxiety disorder, unspecified; M19.90 Unspecified osteoarthritis, unspecified site; F32.9 Major depressive disorder, single episode, unspecified; M79.7 Fibromyalgia; E78.00 Pure hypercholesterolemia, unspecified; I10 Essential (primary) hypertension; F17.210 Nicotine dependence, cigarettes, uncomplicated; Z88.1 Allergy status to other antibiotic agents; Z88.8 Allergy status to other drugs, medicaments and biological substances; Z91.013 Allergy to seafood
CPT/HCPCS: 36415; 80053; 82947; 85025; 96365; 96375; 99284; J1610; J7042; Q0162

== ENCOUNTER → 2021-02-27 | Outpatient (CLI) | payer BC ==
[2021-02-06 17:40] VITALS: BP 114/63
[2021-02-27 10:13] LABS: BASO % 1 % (0-3); EOS # 0.2 x10^3/uL (0.0-0.7); EOS % 2 % (0-3); HEMATOCRIT 45.5 % (36.0-47.0); HEMOGLOBIN 15.2 g/dL (12.0-15.5); LYMPH # 2.5 x10^3/uL (1.0-4.8); LYMPH % 36 % (24-48); MEAN CORPUSCULAR HEMOGLOBIN 30 pg (25-35); MEAN CORPUSCULAR HGB CONC 34 g/dL (31-37); MEAN CORPUSCULAR VOLUME 91 fL (79-100); MONO # 0.4 x10^3/uL (0.0-1.1); MONO % 6 % (0-9); NEUT # 3.8 x10^3uL (1.8-7.7); NEUT % 55 % (31-73); PLATELET COUNT 188 x10^3/uL (140-400); RED BLOOD COUNT 5.02 x10^6/uL (3.50-5.40); RED CELL DISTRIBUTION WIDTH 16.5 % (11.5-14.5); WHITE BLOOD COUNT 6.9 x10^3/uL (4.0-11.0)
[2021-02-27 10:20] LABS: ALBUMIN 3.7 g/dL (3.4-5.0); ALBUMIN/GLOBULIN RATIO 0.9 (1.0-1.7); CALCIUM 9.6 mg/dL (8.5-10.1); CREATININE 0.8 mg/dL (0.6-1.0); GFR 79.4; POTASSIUM 3.7 mmol/L (3.5-5.1); TOTAL BILIRUBIN 0.5 mg/dL (0.2-1.0); TOTAL PROTEIN 7.9 g/dL (6.4-8.2)
== END ==
LOC: LAB 08:55
PROVIDERS: ATTEND Nurse Practitioner Family
DX: R74.01 Elevation of levels of liver transaminase levels (principal)
CPT/HCPCS: 36415; 80053; 82728; 83540; 83550; 85025; 85610

== ENCOUNTER → 2021-02-27 | Outpatient (CLI) | payer BC ==
[2021-02-06 17:40] VITALS: BP 114/63
== END ==
LOC: LAB 08:50
PROVIDERS: ATTEND Physician Assistant Medical
DX: M62.81 Muscle weakness (generalized) (principal); M25.50 Pain in unspecified joint
CPT/HCPCS: 82550; 86140

== ENCOUNTER 2021-03-01 13:56 | Emergency (ER) | payer BC ==
[~2021-03-01] VITALS: Ht 165.1 cm; Wt 77.0 kg
[2021-03-01 14:31] VITALS: BP 132/78
[2021-03-01] MEDS ORDERED: methylPREDNISolone ACETATE 80 MG/ML VIAL. IM ONE (14:45)
--- NOTE | 2021-03-01 15:58 | PHYS DOC ---
Past History Past Medical History: No Pertinent History, Diabetes Additional Past Medical Histor: STAGE 3 RODRIGUEZ, HYdradenitis supperativa,splenomegla, GASTRIC PORTAL HTN (ROGER GARCIA APRN) Past Surgical History: Cholecystectomy, Hysterectomy, Tonsillectomy, Other Additional Past Surgical Histo: SLEEP APNEA DEVICE PLACEMENT (ROGER GARCIA APRN) Smoking: Cigarettes, Less than 1pk/day Alcohol Use: Rarely Drug Use: None (ROGER GARCIA APRN) Adult General Chief Complaint Chief Complaint: HIP PAIN HPI HPI Patient is a 40-year-old female presents emergency department complaining of right hip pain and right arm pain near her elbow after waking up from a nap earlier this afternoon just prior to arrival. Patient states that she took a hydrocodone at home for the pain without relief. Patient states she cannot take Tylenol or Motrin related to her stage III nonalcoholic liver disease and gastric portal hypertension. Patient reports an allergy to Levaquin, Toradol, vancomycin, shellfish. Patient states she takes home medications Pristiq, Wellbutrin, gabapentin, pantoprazole, Adderall, and Xanax. Patient reports she was just recently examined by Dr. Jordan and had blood drawn this past Tuesday to rule out Jamie's disease. Patient denies any traumatic injuries. Patient does report a history of fibromyalgia. Patient denies any numbness or tingling to her extremities. Patient denies any extremity swelling. Patient denies any other physical complaints or physical concerns. (ROGER GARCIA APRN) Review of Systems Review of Systems 14 body systems of review of systems have been reviewed. See HPI for pertinent positives and negative responses, otherwise all other systems are negative, nonpertinent or noncontributory. (ROGER GARCIA APRN) Current Medications Current Medications Current Medications Medications (Trade) Dose Ordered Sig/Yoko Start Time Stop Time Status Last Admin Dose Admin Fentanyl Citrate (Fentanyl 2ml Vial) 75 mcg 1X ONCE 03/01/21 14:45 03/01/21 14:53 DC 03/01/21 14:58 75 MCG Methylprednisolone Acetate (DEPO-Medrol IM) 80 mg 1X ONCE 03/01/21 14:45 03/01/21 14:53 DC 03/01/21 14:57 80 MG (ROGER GARCIA APRN) Allergies Allergies Allergies Coded Allergies Type Severity Reaction Last Updated Verified ketorolac Allergy Intermediate Itching 09/30/20 Yes levofloxacin Allergy Intermediate 09/30/20 Yes shellfish derived Allergy Intermediate Swelling 09/30/20 Yes vancomycin Allergy Intermediate 09/30/20 Yes I S O L A T I O N *CONTACT* Allergy Unknown 09/30/20 Yes NSAIDS (Non-Steroidal Anti-Inflamma Allergy Unknown 09/30/20 Yes (ROGER GARCIA APRN) Physical Exam Physical Exam Constitutional: Well developed, well nourished, no acute distress, non-toxic appearance. 40-year-old female in no apparent distress. HENT: Normocephalic, atraumatic, bilateral external ears normal, oropharynx moist, no oral exudates, nose normal. Eyes: PERRLA, EOMI, conjunctiva normal, no discharge. Neck: Normal range of motion, no tenderness, supple, no stridor. Cardiovascular:Heart rate regular rhythm, no murmur, heart sounds S1-S2 auscultation. Lungs & Thorax: Bilateral breath sounds clear to auscultation no adventitious lung sounds appreciated Abdomen: Bowel sounds normal, soft, no tenderness, no masses, no pulsatile masses. Skin: Warm, dry, no erythema, no rash. Back: No tenderness, no CVA tenderness. Extremities: No tenderness, no cyanosis, no clubbing, ROM intact, no edema. Except for right hip pain to palpation to muscular structures, and pain to palpation along anterior aspect of right elbow area. There is no swelling, no crepitus, distal cap refill less than 2 seconds, no loss of sensation to either right upper or lower extremity. Neurologic: Alert and oriented X 3, normal motor function, normal sensory function, no focal deficits noted. Psychologic: Affect normal, judgement normal, mood normal. (ROGER GARCIA APRN) Current Patient Data Vital Signs Vital Signs Date Time Temp Pulse Resp B/P (MAP) Pulse Ox O2 Delivery O2 Flow Rate FiO2 03/01/21 15:28 20 Room Air 03/01/21 14:31 99.8 96 132/78 (96) 96 (ROGER GARCIA APRN) EKG EKG [] (ROGER GARCIA APRN) Radiology/Procedures Radiology/Procedures [] (ROGER GARCIA APRN) Heart Score C/O Chest Pain: No Risk Factors: Risk Factors: DM, Current or recent (<one month) smoker, HTN, HLP, family history of CAD, obesity. Risk Scores: Risk Factors: DM, Current or recent (<one month) smoker, HTN, HLP, family history of CAD, obesity. (ROGER GARCIA APRN) Course & Med Decision Making Course & Med Decision Making Pertinent Labs and Imaging studies reviewed. (See chart for details) 40-year-old female, vital signs reviewed, presents emergency department complaining of right hip and right arm pain that started after taking a nap earlier today. Physical examination consistent with myalgias. Patient has a history of fibromyalgia. Will treat with steroid injection and 75 mcg of fentanyl IM. Patient has a close relationship with her primary care physician Dr. Jordan and is currently being screened for Bozeman's disease. Discussed with patient to follow-up with her primary care physician tomorrow, continue taking her home pain medications as prescribed by her primary care physician. Patient gave verbal understanding of discharge home instructions, follow-up with her primary care tomorrow, return to ER precautions current, discharged home without incident. (ROGER GARCIA APRN) Course & Med Decision Making I oversaw on the above date of service of this patient and discussed the care with the INTERRELATED SPECIAL EDUCATION TEACHER. I reviewed patient's KTracs and see that she was recently started on Percocet 5. I have voided INTERRELATED SPECIAL EDUCATION TEACHER's initial suggestion for IM Dilaudid and recommended he defer any and all opiate medications with discharge home and strict return precautions given absence of red flag signs or symptoms requiring further ER work-up/intervention. Outside of the IM fentanyl given, I agree with the findings, plan of care, and disposition as documented. Electronically signed, Evelin Norris DO (EVELIN NORRIS DO) Katerine Disclaimer Angelon Disclaimer This electronic medical record was generated, in whole or in part, using a voice recognition dictation system. (ROGER GARCIA APRN) Departure Departure: Impression: Primary Impression: Myalgia Disposition: HOME / SELF CARE / HOMELESS Condition: GOOD Referrals: PEDRO PABLO JORDAN MD (PCP) Patient Instructions: Myalgia, Adult Additional Instructions: You were given Depo-Medrol injection for musculoskeletal pain. Please follow-up with your primary care Dr. Jordan tomorrow as we discussed. Continue to take your home pain medications as prescribed by your primary care physician. Return to the emergency department for worsening symptoms or other concerns. ROGER GARCIA APRN March 01, 2021 15:58 EVELIN NORRIS DO March 04, 2021 09:01
[2021-03-02] MEDS ORDERED: CYCL-331 PO (14:04)
[2021-03-02] MEDS ORDERED: HYDR-2759 PO (14:04)
== END 2021-03-01 16:08 | disposition home or self-care (01) ==
LOC: ER 13:56
DX: M25.551 Pain in right hip (principal); M79.10 Myalgia, unspecified site; F17.210 Nicotine dependence, cigarettes, uncomplicated; Z88.1 Allergy status to other antibiotic agents; Z88.6 Allergy status to analgesic agent; Z91.013 Allergy to seafood; E11.9 Type 2 diabetes mellitus without complications; Z90.49 Acquired absence of other specified parts of digestive tract; Z90.710 Acquired absence of both cervix and uterus
CPT/HCPCS: 96372; 99284; J1040; J3010

== ENCOUNTER 2021-03-02 13:07 | Emergency (ER) | payer BC ==
[~2021-03-02] VITALS: Ht 165.1 cm; Wt 87.3 kg
--- NOTE | 2021-03-02 13:40 | PHYS DOC ---
Past History Past Medical History: No Pertinent History, Diabetes Additional Past Medical Histor: STAGE 3 RODRIGUEZ, HYdradenitis supperativa,splenomegla, GASTRIC PORTAL HTN Past Surgical History: Cholecystectomy, Hysterectomy, Tonsillectomy, Other Additional Past Surgical Histo: SLEEP APNEA DEVICE PLACEMENT Smoking: Cigarettes, Less than 1pk/day Alcohol Use: Rarely Drug Use: None General Adult EDM: Chief Complaint: HIP PAIN HPI: HPI: 40-year-old female presents with bilateral hip and buttocks pain. She tells me that she woke up feeling this way yesterday and it is worse today. She was seen in the ED with similar complaint yesterday. She states that she tried Kearsarge at home yesterday but it did not make any difference. The patient got an IM fentanyl injection and steroid injection. She tells me she just wants to find out what is wrong. No imaging was done yesterday. Patient denies falls or tra dimitri. Review of Systems: Review of Systems: Constitutional: Denies fever or chills Eyes: Denies change in visual acuity HENT: Denies nasal congestion or sore throat Respiratory: Denies cough or shortness of breath Cardiovascular: Denies chest pain or edema GI: Denies abdominal pain, nausea, vomiting, bloody stools or diarrhea : Denies dysuria Musculoskeletal: bilateral low back pain Integument: Denies rash Neurologic: Denies headache, focal weakness or sensory changes Endocrine: Denies polyuria or polydipsia Lymphatic: Denies swollen glands Psychiatric: Denies depression or anxiety Allergies: Allergies: Allergies Coded Allergies Type Severity Reaction Last Updated Verified ketorolac Allergy Intermediate Itching 09/30/20 Yes levofloxacin Allergy Intermediate 09/30/20 Yes shellfish derived Allergy Intermediate Swelling 09/30/20 Yes vancomycin Allergy Intermediate 09/30/20 Yes I S O L A T I O N *CONTACT* Allergy Unknown 09/30/20 Yes NSAIDS (Non-Steroidal Anti-Inflamma Allergy Unknown 09/30/20 Yes Physical Exam: PE: Constitutional: Well developed, well nourished, obese, no acute distress, non- toxic appearance. [] HENT: Normocephalic, atraumatic, bilateral external ears normal, oropharynx moist, no oral exudates, nose normal. [] Eyes: PERRLA, EOMI, conjunctiva normal, no discharge. [] Neck: Normal range of motion, no tenderness, supple, no stridor. [] Cardiovascular:Heart rate regular rhythm, no murmur [] Lungs & Thorax: Bilateral breath sounds clear to auscultation [] Abdomen: Bowel sounds normal, soft, no tenderness, no masses, no pulsatile masses. [] Skin: Warm, dry, no erythema, no rash. [] Back: Tenderness over the bilateral sacroiliac joints with muscle spasms in the area. Tenderness over right piriformis distribution. [] Extremities: No tenderness, no cyanosis, no clubbing, ROM intact, no edema. [] Neurologic: Alert and oriented X 3, normal motor function, normal sensory function, no focal deficits noted. [] Psychologic: Affect normal, judgement normal, mood normal. [] Current Patient Data: Vital Signs: Vital Signs Date Time Temp Pulse Resp B/P (MAP) Pulse Ox O2 Delivery O2 Flow Rate FiO2 03/02/21 13:19 98.4 92 18 137/7 (50) 97 Room Air EKG: EKG: [] Radiology/Procedures: Radiology/Procedures: [] Impressions: EXAM: Sacroiliac joints, 3 views. HISTORY: Pain. COMPARISON: None. FINDINGS: 3 views of the sacroiliac joints are obtained. There is no fracture, dislocation or subluxation. There is degenerative subchondral sclerosis and spurring involving the left sacroiliac joint. IMPRESSION: 1. 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 2. No acute osseous finding. Electronically signed by: Ale Ivan MD (03/02/2021 1:51 PM) [id number] DICTATED AND SIGNED BY: ALE IVAN MD DATE: 03/02/21 1350 CC: JOSE MELENDEZ DO; PEDRO PABLO JORDAN MD ~MTH0 0 Heart Score: C/O Chest Pain: N/A Risk Factors: Risk Factors: DM, Current or recent (<one month) smoker, HTN, HLP, family history of CAD, obesity. Risk Scores: Score 0 - 3: 2.5% MACE over next 6 weeks - Discharge Home Score 4 - 6: 20.3% MACE over next 6 weeks - Admit for Clinical Observation Score 7 - 10: 72.7% MACE over next 6 weeks - Early Invasive Strategies Course & Med Decision Making: Course & Med Decision Making Pertinent Labs and Imaging studies reviewed. (See chart for details) The patient's due to sacroiliac joint dysfunction possibly right piriformis spasm. I will discharge her with a short course of Kearsarge 5/325 and Flexeril. She is stable for discharge at this time [] Katerine Disclaimer: Katerine Disclaimer: This electronic medical record was generated, in whole or in part, using a voice recognition dictation system. Departure Departure: Impression: Primary Impression: Sacroiliac joint dysfunction of both sides Additional Impression: Spasm of right piriformis muscle Disposition: HOME / SELF CARE / HOMELESS Condition: STABLE Referrals: PEDRO PABLO JORDAN MD (PCP) Patient Instructions: Piriformis Syndrome with Rehab-SportsMed Scripts Cyclobenzaprine Hcl (CYCLOBENZAPRINE HCL) 10 Mg Tablet 1 TAB PO TID PRN for MUSCLE SPASMS, #30 TAB Prov: JOSE MELENDEZ DO 03/02/21 Hydrocodone/Acetaminophen (Hydrocodone-Acetamin 5-325 mg) 1 Each Tablet 1 EACH PO Q4-6HRS PRN for PAIN, #10 TAB Prov: JOSE MELENDEZ DO 03/02/21 JOSE MELENDEZ DO March 02, 2021 13:40
--- NOTE | 2021-03-02 13:53 | RAD ---
EXAM: Sacroiliac joints, 3 views. HISTORY: Pain. COMPARISON: None. FINDINGS: 3 views of the sacroiliac joints are obtained. There is no fracture, dislocation or subluxa tion. There is degenerative subchondral sclerosis and spurring involving the left sacroiliac joint. IMPRESSION: 1. 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 2. No acute osseous finding. Electronically signed by: Ale Paredes MD (03/02/2021 1:51 PM) [id number]
[2021-03-02] MEDS ORDERED: HYDROcodone/APAP 5/325MG 1 TAB TABLET PO ONE (14:00)
[2021-03-02] MEDS ORDERED: CYCL-331 PO (14:04)
[2021-03-02] MEDS ORDERED: HYDR-2759 PO (14:04)
[2021-03-02 14:10] VITALS: BP 128/71
== END 2021-03-02 14:20 | disposition home or self-care (01) ==
LOC: ER 13:07
DX: M53.3 Sacrococcygeal disorders, not elsewhere classified (principal); M62.830 Muscle spasm of back; E11.9 Type 2 diabetes mellitus without complications; F17.210 Nicotine dependence, cigarettes, uncomplicated; Z90.49 Acquired absence of other specified parts of digestive tract; Z90.710 Acquired absence of both cervix and uterus; Z88.8 Allergy status to other drugs, medicaments and biological substances; Z88.1 Allergy status to other antibiotic agents; Z91.013 Allergy to seafood
CPT/HCPCS: 72202; 99283

== ENCOUNTER 2021-03-10 04:52 | Emergency (ER) | payer BC ==
[~2021-03-10] VITALS: Ht 165.1 cm; Wt 88.8 kg
[~2021-03-10 04:52] MED LIST changes: +HYDR-2759 PO
--- NOTE | 2021-03-10 04:57 | PHYS DOC ---
Past History Past Medical History: No Pertinent History, Anxiety, Arthritis, Depression, Diabetes, Fibromyalgia, High Cholesterol, Hypertension, Other Additional Past Medical Histor: STAGE 3 RODRIGUEZ, HYdradenitis supperativa,splenomegla, GASTRIC PORTAL HTN Past Surgical History: Cholecystectomy, Hysterectomy, Tonsillectomy, Other Additional Past Surgical Histo: SLEEP APNEA DEVICE PLACEMENT Smoking: Cigarettes, Less than 1pk/day Alcohol Use: Rarely Drug Use: None General Adult HPI: HPI: ".. I was here earlier with my son... since then.. I been at [place].. because my sugars were up.. they got them down to 300's.. and I an to follow up with my Diabetic doctors at ..see they lower my pump.. because I was not eating as much... because of my dental issues.. but on the way home .. I checked my sugars..and they were back up 400.. so I stopped here..." Patient is a 40 year old female who presents with above hx and complaints of hyp erglycemia. Patient has not been to bed all night and has not been keeping with a regualr diabetic diet. Pt. recently and reduction in Insulin by pump on 02/23 because decreased oral intake with dental extractions. Pt.just left [facility] after fluid bolus and IV insulin treatments. Patient has had multiple evaluations for hyperglycemia and hypoglycemia in emergency department. Is also been seen multiple times at [facility] for hyperglycemia and hypoglycemia.. Patient states her primary hospital is for surgery, diabetes management of her pump and RODRIGUEZ diagnosis. also manages her sleep apnea and stimulator implant. Patient follows with Dr. Jordan here locally as a primary. Patient follows with for DM and Dr Mosher for RODRIGUEZ at . Patient has significant medical history of hypertension, NSAH, hypotension, enteritis, pancreatitis, sleep apnea, CPAP, esophageal varices, morbid obesity, GERD, diverticulitis, pancreatitis, renal stones, UTIs, uterine prolapse, cervic al cancer, hyperglycemia, [id number] smoking history and has resumed smoking recently, bronchitis, atrial fibrillation, hypoglycemia bipolar disorder, fibromyalgia, chronic pain syndrome, depression, suicide attempt in 09/28, migraines,multiple drug allergiesand sensativities and a history of suspect narcotic seeking behaviors. Patient has had multiple surgeries including nasal surgeries, tonsillectomy, hysterectomy, hernia repairs, laparoscopic evaluations, esophageal varices, EGDs, cholecystectomy, breast reductions, sleep apnea stimulator, oral surgery. Patient has completed her Covid vaccinations in January and February-Pfizer no recent travel outside the [place] area. No specific ill contacts.,. Review of Systems: Review of Systems: Constitutional: Denies fever or chills Eyes: Denies change in visual acuity HENT: Denies nasal congestion or sore throat Respiratory: Denies cough or shortness of breath Cardiovascular: Denies chest pain or edema GI: Denies abdominal pain, vomiting, bloody stools or diarrhea . Some complaints of mild nausea. : Denies dysuria Musculoskeletal: Denies back pain or joint pain Integument: Denies rash Neurologic: Denies headache, focal weakness or sensory changes Endocrine: Complaints of elevated glucose levels tonight Lymphatic: Denies swollen glands Psychiatric: Denies depression or anxiety Family History: Family History: Diabetes and atrial fibrillation Current Medications: Current Meds: See nursing for home meds Allergies: Allergies: Allergies Coded Allergies Type Severity Reaction Last Updated Verified ketorolac Allergy Intermediate Itching 09/30/20 Yes levofloxacin Allergy Intermediate 09/30/20 Yes shellfish derived Allergy Intermediate Swelling 09/30/20 Yes vancomycin Allergy Intermediate 09/30/20 Yes I S O L A T I O N *CONTACT* Allergy Unknown 09/30/20 Yes NSAIDS (Non-Steroidal Anti-Inflamma Allergy Unknown 09/30/20 Yes Physical Exam: PE: Constitutional: no acute distress, non-toxic appearance. [] HENT: Normocephalic, atraumatic, bilateral external ears normal, oropharynx moist, no oral exudates, nose normal. Poor dentition Eyes: PERRLA, EOMI, conjunctiva normal, no discharge. [] Neck: Normal range of motion, no tenderness, supple, no stridor. More than 17 inches circumference Cardiovascular:Heart rate regular rhythm, no murmur, PMI slightly to the left. Monitor shows a normal sinus rhythm. Lungs & Thorax: Bilateral breath sounds equal apex with scattered wheezes on auscultation []. Right upper chest wall nerve stimulator for sleep apnea Abdomen: Bowel sounds normal, soft, no tenderness, no masses, no pulsatile masses. Morbidly obese. Old surgery scars. Right lower abdomen placement of insulin pump. Skin: Warm, dry, no erythema, no rash. Tattoos. No obvious areas of cellulitis Back: No tenderness, no CVA tenderness. [] Extremities: No tenderness, no cyanosis, no clubbing, ROM intact, bilateral ankle edema. [] No cording appreciated. Axillary scars Neurologic: Alert and oriented X 3, moves all extremities on request, slightly decreased sensation lower limbs, and sensation intact., no gross focal deficits noted. [] Psychologic: Affect anxious judgement normal, mood depressed affect EKG: EKG: [] Radiology/Procedures: Radiology/Procedures: [] Heart Score: C/O Chest Pain: N/A Risk Factors: Risk Factors: DM, Current or recent (<one month) smoker, HTN, HLP, family history of CAD, obesity. Risk Scores: Score 0 - 3: 2.5% MACE over next 6 weeks - Discharge Home Score 4 - 6: 20.3% MACE over next 6 weeks - Admit for Clinical Observation Score 7 - 10: 72.7% MACE over next 6 weeks - Early Invasive Strategies Course & Med Decision Making: Course & Med Decision Making Pertinent Labs and Imaging studies reviewed. (See chart for details) Patient instructed must maintain a regular diet and schedule. Must take diabetic meds as directed. Must try to establish a regular sleep cycle. Advi sed patient if unable to do these things will be near impossible to control her blood sugar levels. Must keep follow-ups with [facility] for management of her diabetic pump and RODRIGUEZ diagnosis. Patient to call her diabetic clinic this morning and see how they want to manage her pump because of her recent elevated glucose levels. Patient did receive 20 units of regular insulin subcu while in the emergency department. Patient to push fluids. Document her blood glucose levels 4 times a day before scheduled meals. She is to show these readings to her diabetic clinic on follow-up. Impression: 1, Hyperglycemia 2. RODRIGUEZ 3. Non-compliance with diet,meds, meals , daily schedules and clinic follow-ups 4. Appears to have some Narcotic seeking behaviors 5. Chronic Pain Syndrome / Fibromyalgia [] Dragon Disclaimer: Dragon Disclaimer: This electronic medical record was generated, in whole or in part, using a voice recognition dictation system. Departure Departure: Referrals: PEDRO PABLO JORDAN MD (PCP) Katerine Disclaimer This chart was dictated in whole or in part using Voice Recognition software in a busy, high-work load, and often noisy Emergency Department environment. It may contain unintended and wholly unrecognized errors or omissions. Dragon Disclaimer This chart was dictated in whole or in part using Voice Recognition software in a busy, high-work load, and often noisy Emergency Department environment. It may contain unintended and wholly unrecognized errors or omissions. RICKIE LAMB MD Mar 10, 2021 04:57
[2021-03-10 05:07] VITALS: BP 137/82
[2021-03-10] MEDS ORDERED: INSULIN REGULAR 100 UNIT/ML 3ML VIAL. SQ ONE ×2 (05:30→06:15)
[2021-03-10] MEDS ORDERED: ACETAMINOPHEN 500 MG TABLET PO ONE ×2 (05:37→05:45)
[2021-03-10] MEDS ORDERED: ONDANSETRON ODT 4 MG TAB.RAPDIS PO ONE (05:45)
== END 2021-03-10 06:29 | disposition home or self-care (01) ==
LOC: ER 04:52
DX: E11.65 Type 2 diabetes mellitus with hyperglycemia (principal); K75.81 Nonalcoholic steatohepatitis (NASH); I10 Essential (primary) hypertension; E66.01 Morbid (severe) obesity due to excess calories; K21.9 Gastro-esophageal reflux disease without esophagitis; I48.91 Unspecified atrial fibrillation; F31.9 Bipolar disorder, unspecified; M79.7 Fibromyalgia; F41.9 Anxiety disorder, unspecified; M19.90 Unspecified osteoarthritis, unspecified site; E78.00 Pure hypercholesterolemia, unspecified; F17.210 Nicotine dependence, cigarettes, uncomplicated; Z91.14 Patient's other noncompliance with medication regimen; Z91.11 Patient's noncompliance with dietary regimen; Z87.442 Personal history of urinary calculi; Z87.440 Personal history of urinary (tract) infections; Z68.32 Body mass index [BMI] 32.0-32.9, adult; Z91.5 Personal history of self-harm
CPT/HCPCS: 82947; 96372; 99284; J1815; Q0162

== ENCOUNTER 2021-03-21 19:15 | Emergency (ER) | payer BC ==
[~2021-03-21] VITALS: Ht 162.6 cm; Wt 86.7 kg
--- NOTE | 2021-03-21 19:40 | PHYS DOC ---
Past History Past Medical History: No Pertinent History, Anxiety, Arthritis, Depression, Diabetes, Fibromyalgia, High Cholesterol, Hypertension, Other Additional Past Medical Histor: STAGE 3 RODRIGUEZ, HYdradenitis supperativa,splenomegla, GASTRIC PORTAL HTN (ROGER GARCIA APRN) Past Surgical History: Cholecystectomy, Hysterectomy, Tonsillectomy, Other Additional Past Surgical Histo: SLEEP APNEA DEVICE PLACEMENT (ROGER GARCIA APRN) Smoking: Cigarettes, Less than 1pk/day Alcohol Use: Rarely Drug Use: None (ROGER GARCIA APRN) Adult General Chief Complaint Chief Complaint: MECHANICAL FALL HPI HPI Patient is a 40-year-old female who presents emergency department complaining of left knee and right knee pain with some abdominal pain after a slip and tumbled down carpeted steps this morning. Patient states she has been icing her sore areas, patient states she does not think anything is broken, states that she does need something for pain and if she wants to go back home. Patient denies loss of consciousness. Patient denies numbness or tingling to her extremities. Patient denies any other physical complaints or physical concerns. Patient states that she cannot take any NSAIDs or Tylenol for pain. (ROGER GARCIA APRN) Review of Systems Review of Systems 14 body systems of review of systems have been reviewed. See HPI for pertinent positives and negative responses, otherwise all other systems are negative, nonp ertinent or noncontributory. (ROGER GARCIA APRN) Allergies Allergies Allergies Coded Allergies Type Severity Reaction Last Updated Verified ketorolac Allergy Intermediate Itching 03/10/21 Yes levofloxacin Allergy Intermediate 03/10/21 Yes shellfish derived Allergy Intermediate Swelling 03/10/21 Yes vancomycin Allergy Intermediate 03/10/21 Yes I S O L A T I O N *CONTACT* Allergy Unknown 03/10/21 Yes NSAIDS (Non-Steroidal Anti-Inflamma Allergy Unknown 03/10/21 Yes (ROGER GARCIA APRN) Physical Exam Physical Exam Constitutional: Well developed, well nourished, no acute distress, non-toxic appearance. Patient's complaint of pain exceeds physical presentation, patient is in no apparent distress. HENT: Normocephalic, atraumatic, bilateral external ears normal, oropharynx moist, no oral exudates, nose normal. No contusions of the head or face appreciated, no injury to the head or face appreciated. There is no cunningham sign, no raccoon eyes. No drainage from external auditory canals, no drainage from bilateral turbinates. Eyes: PERRLA, EOMI, conjunctiva normal, no discharge. Satisfactory 6 cardinal eye movements. Neck: Normal range of motion, no tenderness, supple, no stridor. Cardiovascular:Heart rate regular rhythm, no murmur Lungs & Thorax: Bilateral breath sounds clear to auscultation Abdomen: Bowel sounds normal, soft, no tenderness, no masses, no pulsatile masses. No bruising or skin discoloration of the abdomen. No abnormalities of the abdomen appreciated Skin: Warm, dry, no erythema, no rash. Back: No tenderness, no CVA tenderness. Extremities: No tenderness, no cyanosis, no clubbing, ROM intact, no edema. No visual signs of injury appreciated, full AROM/PROM of bilateral knees. No swelling, no ecchymosis, no loss of sensation, normal exam of all extremities. Neurologic: Alert and oriented X 3, normal motor function, normal sensory function, no focal deficits noted. Psychologic: Affect normal, judgement normal, mood normal. (ROGER GARCIA APRN) EKG EKG [] (ROGER GARCIA APRN) Radiology/Procedures Radiology/Procedures [] (ROGER GARCIA APRN) Heart Score C/O Chest Pain: No Risk Factors: Risk Factors: DM, Current or recent (<one month) smoker, HTN, HLP, family history of CAD, obesity. Risk Scores: Risk Factors: DM, Current or recent (<one month) smoker, HTN, HLP, family history of CAD, obesity. (ROGER GARCIA APRN) Course & Med Decision Making Course & Med Decision Making Pertinent Labs and Imaging studies reviewed. (See chart for details) 40-year-old female, vital signs reviewed, complaints of pain after stating she fell down some carpeted steps this morning. Physical presentation does not match patient's complaint of events. Patient has been seen here for pain control in the past by me. Patient states that she cannot take NSAIDs or Tylenol for pain related to health history, patient usually asked for Dilaudid medication. Have given fentanyl medication in the past, offered IM fentanyl medication today, patient states that is okay, patient states she does not need any x-rays, I agreed with the patient as physical presentation does not warrant any imaging. Discussed with patient will give 75 mcg IM fentanyl and sent home, follow-up with her primary care physician Dr. Jordan for ongoing pain management. Patient gave verbal understanding of discharge home instructions, follow-up with her primary care physician for ongoing pain management, return to ER precautions or concerns, patient was discharged home without incident. (ROGER GARCIA APRN) Course & Med Decision Making Did not see or evaluate patient. Agree with [employer]ANCE [employer]'s work-up and disposition per note. (LUKAS TRAVIS MD) Dragon Disclaimer Dragon Disclaimer This electronic medical record was generated, in whole or in part, using a voice recognition dictation system. (ROGER GARCIA APRN) Departure Departure: Impression: Primary Impression: Fall Disposition: HOME / SELF CARE / HOMELESS Condition: GOOD Referrals: PEDRO PABLO JORDAN MD (PCP) Patient Instructions: Fall Prevention and Home Safety Additional Instructions: You are seen today in the emergency department for a fall, there were no physical injuries that required x-ray imaging or CT imaging. You are given IM medication fentanyl for acute pain. Please follow-up with your primary care physician for ongoing pain management. Please review the fall prevention and home safety information attached to this document. EMERGENCY DEPARTMENT GENERAL DISCHARGE INSTRUCTIONS Thank you for coming to [facility] (ED) today and trusting us with you care. We trust that you had a positivie experience in our Emergency Department. If you wish to speak to the department management, you may call the director at [phone]. YOUR FOLLOW UP INSTRUCTIONS ARE FOLLOWS: 1. Do you have a private Doctor? If you do not have a private doctor, please ask for a resource list of physicians or clinics that may be able to assist you with follow up care. 2. The Emergency Physician has interpreted your x-rays. The X-Ray specialist will also review them. If there is a change in the findings, you will be notified in 48 hours when at all possible. 3. A lab test or culture has been done, your results will be reviewed and you will be notified if you need a change in treatment. ADDITIONAL INSTRUCTIONS AND INFORMATION: 1. Your care today has been supervised by a physician who is specially trained in emergency care. Many problems require more than one evaluation for a complete diagnosis and treatment. We recommend that you schedule your follow up appointment as recommended to ensure complete treatment of you illness or injury. If you are unable to obtain follow up care and continue to have a problem, or if your condition worsens, we recommend that you return to the ED. 2. We are not able to safely determine your condition over the phone nor are we able to give sound medical advice over the phone. For these safety reasons, if you call for medical advice we will ask you to come to the ED for further evaluation. 3. If you have any questions regarding these discharge instructions please call the ED at [phone]. SAFETY INFORMATION: In the interest of safety, wellness, and injury prevention; we encourage you to wear your sealbelt, if you smoke; quite smoking, and we encourage family to use a protective helmet for bicycling and other sporting events that present an increased risk for head injury. IF YOUR SYMPTOMS WORSEN OR NEW SYMPTOMS DEVELOP, OR YOU HAVE CONCERNS ABOUT YOUR CONDITION; OR IF YOUR CONDITION WORSENS WHILE YOU ARE WAITING FOR YOUR FOLLOW UP APPOINTMENT; EITHER CONTACT YOUR PRIMARY CARE DOCTOR, THE PHYSICIAN WHOSE NAME AND NUMBER YOU WERE GIVEN, OR RETURN TO THE ED IMMEDIATELY. Problem Qualifiers Primary Impression: Fall Encounter type: initial encounter Qualified Codes: W19.XXXA - Unspecified fall, initial encounter ROGER GARCIA APRN Mar 21, 2021 19:40 LUKAS TRAVIS MD Mar 21, 2021 20:45
[2021-03-21 19:50] VITALS: BP 139/93
== END 2021-03-21 20:00 | disposition home or self-care (01) ==
LOC: ER 19:15
DX: M25.561 Pain in right knee (principal); M25.562 Pain in left knee; R10.9 Unspecified abdominal pain; F17.210 Nicotine dependence, cigarettes, uncomplicated; Z90.49 Acquired absence of other specified parts of digestive tract; Z90.710 Acquired absence of both cervix and uterus; Z88.1 Allergy status to other antibiotic agents; W10.9XXA Fall (on) (from) unspecified stairs and steps, initial encounter; Y93.89 Activity, other specified; Y92.89 Other specified places as the place of occurrence of the external cause; Y99.8 Other external cause status
CPT/HCPCS: 96372; 99283; J3010

== ENCOUNTER 2021-03-27 17:06 | Emergency (ER) | payer BC ==
[~2021-03-27] VITALS: Ht 165.1 cm; Wt 84.0 kg
--- NOTE | 2021-03-27 17:37 | PHYS DOC ---
Past History Past Medical History: Anxiety, Arthritis, Depression, Diabetes, Fibromyalgia, High Cholesterol, Hypertension, Other Additional Past Medical Histor: STAGE 3 RODRIGUEZ, HYdradenitis supperativa, splenomegla, GASTRIC PORTAL HTN Past Surgical History: Cholecystectomy, Hysterectomy, Tonsillectomy, Other Additional Past Surgical Histo: SLEEP APNEA DEVICE PLACEMENT Smoking: Cigarettes, Less than 1pk/day Alcohol Use: None Drug Use: None General Adult EDM: Chief Complaint: BLOOD SUGAR PROBLEM HPI: HPI: Patient is a 40-year-old female coming in for right lower quadrant abdominal pain that she says started yesterday. States she was sitting when the pain started and is intermittent has been getting worse. Is improved with flexion of the hip. Worse with movement or palpation. Patient has had decreased appetite and has not had any p.o. intake today. Patient states her blood sugars have also been running over 400. Ran out of one of the parts to her insulin pump has not had any insulin today. Patient states her blood sugars usually around 200. Patient has history of hysterectomy and cholecystectomy. Still has her appendix. Has had increased urination without dysuria or hematuria. Review of Systems: Review of Systems: All other systems within normal limits except for as noted in the HPI Allergies: Allergies: Allergies Coded Allergies Type Severity Reaction Last Updated Verified ketorolac Allergy Intermediate Itching 03/10/21 Yes levofloxacin Allergy Intermediate 03/10/21 Yes shellfish derived Allergy Intermediate Swelling 03/10/21 Yes vancomycin Allergy Intermediate 03/10/21 Yes I S O L A T I O N *CONTACT* Allergy Unknown 03/10/21 Yes NSAIDS (Non-Steroidal Anti-Inflamma Allergy Unknown 03/10/21 Yes Physical Exam: PE: Constitutional: Well developed, well nourished, no acute distress, non-toxic appearance. [] HENT: Normocephalic, atraumatic, bilateral external ears normal, nose normal. [] Eyes: PERRLA, conjunctiva normal, no discharge. [] Neck: No rigidity, supple, no stridor. [] Cardiovascular: Regular rate and rhythm, brisk cap refill [] Lungs & Thorax: Non labored symmetric respirations, no tachypnea or respiratory distress [] Abdomen: Soft, nondistended, right lower quadrant tenderness with guarding, no rebound. Negative Rovsing's.. Skin: Warm, dry, no erythema, no rash. [] Back: Unremarkable Extremities: No deformities, range of motion grossly intact, no lower extremity edema [] Neurologic: Alert and oriented X 3, no focal deficits noted. [] Psychologic: Affect normal, judgement normal, mood normal. [] EKG: EKG: [] Radiology/Procedures: Radiology/Procedures: [address] [id number] IMAGING REPORT Signed PATIENT: SANFORD RANDHAWA ACCOUNT: [id number] : 1980 LOCATION: ER AGE: 40 SEX: F EXAM STATUS: REG ER ORD. PHYSICIAN: MELVA HOLLOWAY MD REASON: RLQ PAIN PROCEDURE: ACUTE ABDOMEN SERIES Exam: Acute abdominal series INDICATION: Right lower quadrant pain TECHNIQUE: Frontal view of the chest with upright and supine views of the abdomen Comparisons: None FINDINGS: Generator seen overlying the right chest. The cardiomediastinal silhouette and pulmonary vessels are within normal limits. The lung and pleural spaces are clear. Air and stool are noted throughout the colon to level the rectum in a nonobstructive bowel gas pattern. No suspicious masses or calcifications. Visualized osseous structures are unremarkable. IMPRESSION: 1. No acute cardiopulmonary process. 2. Nonobstructive bowel gas pattern. Electronically signed by: Martha Bryson MD (03/27/2021 7:00 PM) [facility] DICTATED AND SIGNED BY: MARTHA BRYSON MD DATE: 03/27/211858 CC: MELVA HOLLOWAY MD; PEDRO PABLO JORDAN MD ~MTH0 0 [] Heart Score: C/O Chest Pain: No Risk Factors: Risk Factors: DM, Current or recent (<one month) smoker, HTN, HLP, family history of CAD, obesity. Risk Scores: Score 0 - 3: 2.5% MACE over next 6 weeks - Discharge Home Score 4 - 6: 20.3% MACE over next 6 weeks - Admit for Clinical Observation Score 7 - 10: 72.7% MACE over next 6 weeks - Early Invasive Strategies Course & Med Decision Making: Course & Med Decision Making Pertinent Labs and Imaging studies reviewed. (See chart for details) Labs consistent with poorly controlled diabetes. Given insulin and fluids here. Patient has a history of chronic abdominal pain and has had numerous CTs for over the past year. On x-ray though it is noted that she has a moderate amount of stool burden in her right colon. Discussed bowel regimen at home due to possible cause of chronic right lower quadrant pain being secondary to chronic constipation. [] Dragon Disclaimer: Dragon Disclaimer: This electronic medical record was generated, in whole or in part, using a voice recognition dictation system. Departure Departure: Impression: Primary Impression: Right lower quadrant abdominal pain Disposition: HOME / SELF CARE / HOMELESS Condition: STABLE Referrals: PEDRO PABLO JORDAN MD (PCP) Patient Instructions: Abdominal Pain, Possible Early Appendicitis Scripts Sennosides/Docusate Sodium (Senna-Docusate Sodium Tablet) 1 Each Tablet 1 TAB PO DAILY PRN for CONSTIPATION for 20 Days, #20 TAB 0 Refills Prov: MELVA HOLLOWAY MD 03/27/21 MELVA HOLLOWAY MD Mar 27, 2021 17:37
[2021-03-27] MEDS ORDERED: ONDANSETRON PF 4 MG/2 ML VIAL. IVP ONE (17:45)
[2021-03-27] MEDS ORDERED: IV NORMAL SALINE 1,000ML 1,000 ML IV ONE (17:45)
[2021-03-27 18:08] LABS: BASO # 0.1 x10^3/uL (0.0-0.2); BASO % 1 % (0-3); EOS # 0.1 x10^3/uL (0.0-0.7); EOS % 1 % (0-3); HEMATOCRIT 42.8 % (36.0-47.0); HEMOGLOBIN 14.4 g/dL (12.0-15.5); LYMPH # 2.5 x10^3/uL (1.0-4.8); LYMPH % 27 % (24-48); MEAN CORPUSCULAR HEMOGLOBIN 30 pg (25-35); MEAN CORPUSCULAR HGB CONC 34 g/dL (31-37); MEAN CORPUSCULAR VOLUME 90 fL (79-100); MONO # 0.6 x10^3/uL (0.0-1.1); MONO % 6 % (0-9); NEUT # 6.1 x10^3uL (1.8-7.7); NEUT % 65 % (31-73); PLATELET COUNT 184 x10^3/uL (140-400); RED BLOOD COUNT 4.77 x10^6/uL (3.50-5.40); RED CELL DISTRIBUTION WIDTH 16.1 % (11.5-14.5); WHITE BLOOD COUNT 9.5 x10^3/uL (4.0-11.0)
[2021-03-27 18:16] LABS: CALCIUM 9.2 mg/dL (8.5-10.1); CREATININE 0.8 mg/dL (0.6-1.0); GFR 79.4; POTASSIUM 4.4 mmol/L (3.5-5.1)
[2021-03-27 18:22] LABS: ALBUMIN 3.5 g/dL (3.4-5.0); ALBUMIN/GLOBULIN RATIO 0.9 (1.0-1.7); PHOSPHORUS 4.1 mg/dL (2.6-4.7); TOTAL BILIRUBIN 0.5 mg/dL (0.2-1.0); TOTAL PROTEIN 7.2 g/dL (6.4-8.2)
[2021-03-27] MEDS ORDERED: INSULIN REGULAR 100 UNIT/ML 3ML VIAL. SQ ONE (18:30)
[2021-03-27] MEDS ORDERED: HYDROcodone/APAP 10/325 1 TAB TABLET PO ONE (19:00)
--- NOTE | 2021-03-27 19:03 | RAD ---
Exam: Acute abdominal series INDICATION: Right lower quadrant pain TECHNIQUE: Frontal view of the chest with upright and supine views of the abdomen Comparisons: None FINDINGS: Generator seen overlying the right chest. The cardiomediastinal silhouette and pulmonary vessels are within normal limits. The lung and pleural spaces are clear. Air and stool are noted throughout the colon to level the rectum in a nonobstructive bowel gas patter n. No suspicious masses or calcifications. Visualized osseous structures are unremarkable. IMPRESSION: 1. No acute cardiopulmonary process. 2. Nonobstructive bowel gas pattern. Electronically signed by: Martha Ulloa MD (03/27/2021 7:00 PM) [facility]
[2021-03-27 19:15] LABS: BACTERIA,URINE FEW /HPF (0-FEW); BILIRUBIN,URINE NEG (NEG); CLARITY,URINE HAZY; COLOR,URINE YELLOW; GLUCOSE,URINE >=1000 mg/dL (NEG); NITRITE,URINE NEG (NEG); RBC,URINE OCC /HPF (0-2); SQUAMOUS EPITHELIAL CELL,UR MANY /LPF; UROBILINOGEN,URINE 0.2 mg/dL (0.2 mg/dL)
[2021-03-27] MEDS ORDERED: SENN1TAB99 PO (19:25)
[2021-03-27 19:45] VITALS: BP 137/71
== END 2021-03-27 19:54 | disposition home or self-care (01) ==
LOC: ER 17:06
DX: R10.31 Right lower quadrant pain (principal); E11.9 Type 2 diabetes mellitus without complications; E78.5 Hyperlipidemia, unspecified; F17.210 Nicotine dependence, cigarettes, uncomplicated; Z88.1 Allergy status to other antibiotic agents; Z88.5 Allergy status to narcotic agent; Z91.013 Allergy to seafood; Z90.49 Acquired absence of other specified parts of digestive tract; Z90.710 Acquired absence of both cervix and uterus
CPT/HCPCS: 36415; 74022; 80053; 81001; 82803; 83690; 83735; 84100; 85025; 96361; 96372; 96374; 96375; 99284; J1815; J2405; J3010; J7030

== ENCOUNTER 2021-03-30 03:23 | Inpatient (IN) | payer BC ==
[~2021-03-30] VITALS: Ht 165.1 cm; Wt 92.1 kg
[~2021-03-30 03:23] MED LIST changes: +SENN1TAB99 PO
--- NOTE | 2021-03-30 03:43 | PHYS DOC ---
Past History Past Medical History: Anxiety, Arthritis, Bipolar, Depression, Diverticulitis, Diabetes, Fibromyalgia, GERD, High Cholesterol, Hypertension, Kidney Stones, UTI, Other Additional Past Medical Histor: STAGE 3 RODRIGUEZ, HYdradenitis supperativa,splenomegla, GASTRIC PORTAL HTN Past Medical History Sleep Apnea Past Surgical History: Cancer Surgery, Cholecystectomy, Hysterectomy, Tonsillectomy, Other Additional Past Surgical Histo: SLEEP APNEA DEVICE PLACEMENT Smoking: Cigarettes, Less than 1pk/day Alcohol Use: None Drug Use: None General Adult HPI: HPI: "My sugars are too high.. I had some teeth pulled.. and they adjusted my pump... and it is set to low.. I was up with my daughter kirsten.. and I checked my sugars they read too high to read.. " Patient is a 40 year old female who presents with complaints of elevated glucose levels. Pt. follows with Dr. Jordan and [facility]. Patient has extensive medical history with frequent ED evaluations for hyperglycemia, dehydration and pain complaints. Patient at times has appeared to have narcotic seeking behaviors. Patient has past medical history of anxiety disorder, arthritis, depression, diabetes, fibromyalgia, elevated cholesterol, hypertension, stage III RODRIGUEZ, hidradenitis suppurativa, splenomegaly, portal hypertension, hypertension, enteritis, pancreatitis, esophageal varices, morbid obesity ,uterine prolapse, cervical cancer, bipolar, suicidal attempt in 1220 sleep apnea, tobacco abuse, chronic pain, fibromyalgia, chronic constipation, diverticulitis, urinary tract infections, tobacco [id number], kidney stones and poor compliance with medical regimens. Patient has had past surgical history cholecystectomy,, hernia surgeries, laparoscopic evaluations, breast reduction, hysterectomy, tonsillectomy, sleep apnea pacer placement. Patient has had recent multiple dental extractions. At that time her insulin pump basal rate was reduced.. Patient feels that this may be the cause of her excessive the elevated hyper glycemia episodes. Review of Systems: Review of Systems: Constitutional: Denies fever or chills Eyes: Denies change in visual acuity HENT: Denies nasal congestion or sore throat Respiratory: Denies cough or shortness of breath Cardiovascular: Denies chest pain or edema GI: Denies abdominal pain, nausea, vomiting, bloody stools or diarrhea : Denies dysuria Musculoskeletal: Denies back pain or joint pain Integument: Denies rash Neurologic: Denies headache, focal weakness or sensory changes Endocrine: Denies polyuria or polydipsia Lymphatic: Denies swollen glands Psychiatric: Denies depression or anxiety Family History: Family History: Family history is positive for diabetes and atrial fibrillation Current Medications: Current Meds: See nursing for home meds Allergies: Allergies: Allergies Coded Allergies Type Severity Reaction Last Updated Verified ketorolac Allergy Intermediate Itching 03/27/21 Yes levofloxacin Allergy Intermediate 03/27/21 Yes shellfish derived Allergy Intermediate Swelling 03/27/21 Yes vancomycin Allergy Intermediate 03/27/21 Yes I S O L A T I O N *CONTACT* Allergy Unknown 03/10/21 Yes NSAIDS (Non-Steroidal Anti-Inflamma Allergy Unknown 03/27/21 Yes Physical Exam: PE: Constitutional: Moderate acute distress, non-toxic appearance. [] HENT: Normocephalic, atraumatic, bilateral external ears normal, oropharynx dry, no oral exudates, nose normal. [] Eyes: PERRLA, EOMI, conjunctiva normal, no discharge. [] Neck: Normal range of motion, no tenderness, supple, no stridor. More than 17 inches circumference Cardiovascular: Tachycardia heart rate regular rhythm, no murmur [], PMI to left, monitor shows a sinus rhythm. Lungs & Thorax: Bilateral breath sounds equal apex with scattered wheezes and basilar crackles on auscultation [] breast reduction scars Abdomen: Bowel sounds normal, soft, right flank tenderness, no masses, no pulsatile masses. Morbidly obese. Multiple scars. Insulin pump. Distended. Skin: Warm, dry, no erythema, no rash. Poor turgor Back: No tenderness, no CVA tenderness. [] Extremities: No tenderness, no cyanosis, no clubbing, ROM intact, ankle edema. [] No cording appreciated Neurologic: Alert and oriented X 3, moves all extremities on request, appears to have distal sensory,, no focal deficits noted. [] Psychologic: Affect anxious, judgement normal, mood normal. [] EKG: EKG: My interpretation EKG shows a sinus rhythm at 92 bpm. Has left axis findings does have an anterior fascicular block overall morphology is abnormal but no findings of acute STEMI with contralateral changes. This appears similar to prior EKGs on file. Reading at 4 10hrs. [] Radiology/Procedures: Radiology/Procedures: [address] [id number] IMAGING REPORT Signed PATIENT: SANFORD RANDHAWA ACCOUNT: [id number] : 1980 LOCATION: [address] [place] [address] AGE: 40 SEX: F EXAM STATUS: ADM IN ORD. PHYSICIAN: RICKIE LAMB MD REASON: Large Hematuria, hx pas stones , pain on Rt. flank PROCEDURE: CT ABDOMEN PELVIS WO CONTRAST EXAMINATION: CT ABDOMEN+PELVIS WO CLINICAL HISTORY: Large Hematuria, hx pas stones , pain on Rt. flank TECHNIQUE: Non-IV contrast imaging of the abdomen and pelvis was performed using standard technique, scanning from just above the dome of the diaphragm to the symphysis pubis. Unenhanced imaging is limited for the evaluation of some in tra-abdominal and pelvic pathology. CT Dose Reduction Employed: One or more of the following individualized dose reduction techniques were utilized for this examination: 1. Automated exposure control 2. Adjustment of the mA and/or kV according to patient size 3. Use of iterative reconstruction technique. COMPARISON: 12/06/2020 FINDINGS: Evaluation of the lower chest limited by motion artifact. Hepatosplenomegaly. Cholecystectomy. Pancreas and adrenal glands unremarkable. Hyperdensity in the bilateral collecting systems and urinary bladder, compatible with residual iodinated contrast, however, the patient has not had a recent contrast-enhanced exam at this hospital. This limits evaluation for urinary calculi. No urinary calculus definitively visualized. No evidence of obstructive uropathy. Mild to moderately filled urinary bladder. Hysterectomy. No dilated bowel. Normal appendix. Prominent distention of the stomach with fluid and particulate matter. No abdominal aortic or iliac artery aneurysm. No evidence of acute osseous abnormality. IMPRESSION: No evidence of acute abdominopelvic abnormality. Hyperdensity suggestive of residual iodinated contrast in the urinary collecting system on this noncontrast exam limits evaluation for urinary calculi as described. No definitively visualized urinary calculus or evidence of obstructive uropathy. Hepatosplenomegaly. Electronically signed by: Kurt Gaviria DO (03/30/2021 6:39 AM) [facility] DICTATED AND SIGNED BY: KURT GAVIRIA DO DATE: 03/30/21 0631 CC: PEDRO PABLO JORDAN MD; RICKIE LAMB MD ~MTH0 0 [][address] [id number] IMAGING REPORT Signed PATIENT: SANFORD RANDHAWA ACCOUNT: [id number] : 1980 LOCATION: [address] [place] [address] AGE: 40 SEX: F EXAM STATUS: ADM IN ORD. PHYSICIAN: RICKIE LAMB MD REASON: pain PROCEDURE: ACUTE ABDOMEN SERIES EXAMINATION: XR ABDOMEN COMP ACUTE CLINICAL HISTORY: Abdominal pain EXAM DATE/TIME: 03/30/2021 4:15 AM COMPARISON: 03/27/2021 FINDINGS: Lines, Tubes, and Devices: Generator overlying the right chest. Cardiomediastinal Silhouette: Heart size at upper limits of normal. Lungs and Pleura: No evidence of focal airspace consolidation or pleural effusion. Pulmonary vasculature unremarkable. Bones and Soft Tissues: Degenerative changes of the thoracic spine. Abdomen: Nonspecific bowel gas pattern. No pathologic abdominal calcifications definitively visualized. Cholecystectomy clips. Surgical material in the right pelvis. Increased density in the urinary bladder. IMPRESSION: Nonspecific bowel gas pattern. No evidence of acute cardiopulmonary abnormality. Electronically signed by: Kurt Gaviria DO (03/30/2021 6:04 AM) [facility] DICTATED AND SIGNED BY: KURT GAVIRIA DO DATE: 03/30/21 0600 CC: PEDRO PABLO JORDAN MD; RICKIE LAMB MD ~MTH0 0 Heart Score: C/O Chest Pain: No HEART Score for Chest Pain: HEART Score for Chest Pain Response (Comments) Value History Moderately Suspicious 1 ECG Nonspecific Repolarizatio 1 Age < 45 0 Risk Factors 1 or 2 Risk Factors 1 Troponin < Normal Limit 0 Total 3 Risk Factors: Risk Factors: DM, Current or recent (<one month) smoker, HTN, HLP, family history of CAD, obesity. Risk Scores: Score 0 - 3: 2.5% MACE over next 6 weeks - Discharge Home Score 4 - 6: 20.3% MACE over next 6 weeks - Admit for Clinical Observation Score 7 - 10: 72.7% MACE over next 6 weeks - Early Invasive Strategies Course & Med Decision Making: Course & Med Decision Making Pertinent Labs and Imaging studies reviewed. (See chart for details) Discussed presentation, testing and treatment plan with - Admit to his service. Plan to leave her insulin pump on added to basal rate. We will add insulin drip and hydration with normal saline. CT for evaluation of possible renal stone and her hematuria any at time of admission. ImpressionL 1. Hyperglycemia 389 to 395 while in ED 2. Abdomen pain/right flank pain 3. Hematuria 4. Dehydration 5 RODRIGUEZ Stage III 6. Elevated LFTs AST 69 ALT 118 alk phos 137-these are similar to prior elevations 7, Chronic pain [] Dragon Disclaimer: Dragrena Disclaimer: This electronic medical record was generated, in whole or in part, using a voice recognition dictation system. Departure Departure: Referrals: PEDRO PABLO JORDAN MD (PCP) Katerine Disclaimer This chart was dictated in whole or in part using Voice Recognition software in a busy, high-work load, and often noisy Emergency Department environment. It may contain unintended and wholly unrecognized errors or omissions. RICKIE LAMB MD Mar 30, 2021 03:43
--- NOTE | 2021-03-30 04:18 | EKG ---
[address] [address] Test Date: 2021-03-30 Test Time: 04:10:31 Pat Name: SANFORD RANDHAWA Department: Room: Gender: F Fnps: : 1980 Requested By: RICKIE LAMB Order Number: [id number] Reading MD: Measurements Intervals [place] Rate: 92 P: 38 TN: 156 QRS: -31 QRSD: 86 T: 56 QT: 340 QTc: 425 Interpretive Statements SINUS RHYTHM ABNORMAL LEFT AXIS DEVIATION R-S TRANSITION ZONE IN V LEADS DISPLACED TO THE LEFT LEFT ANTERIOR FASCICULAR BLOCK QRS(T) CONTOUR ABNORMALITY CONSIDER ANTEROSEPTAL MYOCARDIAL DAMAGE ABNORMAL ECG RI6.01 No previous ECG available for comparison
[2021-03-30] MEDS ORDERED: IV NORMAL SALINE 100ML 100 ML ONE (04:23)
[2021-03-30] MEDS ORDERED: INSULIN REGULAR 100 UNIT/ML 3ML VIAL. IV ONE (04:30)
[2021-03-30] MEDS ORDERED: INSULIN REGULAR VIAL 100 UNIT in IV NORMAL SALINE 100ML 100 ML IV ONE ×2 (04:30→06:00)
[2021-03-30] MEDS ORDERED: IV NORMAL SALINE 1,000ML 1,000 ML IV SCH (04:30)
[2021-03-30 04:31] LABS: BASO # 0.1 x10^3/uL (0.0-0.2); BASO % 1 % (0-3); EOS # 0.1 x10^3/uL (0.0-0.7); EOS % 1 % (0-3); HEMATOCRIT 40.5 % (36.0-47.0); HEMOGLOBIN 13.7 g/dL (12.0-15.5); LYMPH # 2.5 x10^3/uL (1.0-4.8); LYMPH % 31 % (24-48); MEAN CORPUSCULAR HEMOGLOBIN 30 pg (25-35); MEAN CORPUSCULAR HGB CONC 34 g/dL (31-37); MEAN CORPUSCULAR VOLUME 90 fL (79-100); MONO # 0.5 x10^3/uL (0.0-1.1); MONO % 6 % (0-9); NEUT # 4.8 x10^3uL (1.8-7.7); NEUT % 61 % (31-73); PLATELET COUNT 140 x10^3/uL (140-400); RED BLOOD COUNT 4.51 x10^6/uL (3.50-5.40); RED CELL DISTRIBUTION WIDTH 16.3 % (11.5-14.5)
[2021-03-30 04:32] LABS: CALCIUM 8.8 mg/dL (8.5-10.1); CREATININE 0.7 mg/dL (0.6-1.0); GFR 92.7; POTASSIUM 3.8 mmol/L (3.5-5.1)
[2021-03-30 04:34] LABS: CLARITY,URINE CLEAR; COLOR,URINE YELLOW
[2021-03-30 04:35] LABS: BILIRUBIN,URINE NEG (NEG); GLUCOSE,URINE >=1000 mg/dL (NEG); NITRITE,URINE NEG (NEG); RBC,URINE >40 /HPF (0-2); UROBILINOGEN,URINE 0.2 mg/dL (0.2 mg/dL)
[2021-03-30 04:36] LABS: BACTERIA,URINE 0 /HPF (0-FEW); SQUAMOUS EPITHELIAL CELL,UR FEW /LPF; WBC,URINE 0 /HPF (0-4)
[2021-03-30 04:37] LABS: AMPHETAMINE/METHAMPHETAMINE NEG (NEG); BARBITURATES NEG (NEG); BENZODIAZEPINES POS (NEG); CANNABINOIDS NEG (NEG); COCAINE NEG (NEG); METHADONE NEG (NEG); OPIATES POS (NEG); PHENCYCLIDINE NEG (NEG)
[2021-03-30 04:50] LABS: ALBUMIN 3.1 g/dL (3.4-5.0); DIRECT BILIRUBIN 0.1 mg/dL (0.0-0.2); MAGNESIUM 1.9 mg/dL (1.8-2.4); TOTAL BILIRUBIN 0.3 mg/dL (0.2-1.0)
[2021-03-30] MEDS ORDERED: MORPHINE SULFATE 10 MG/ML SYRINGE. SQ PRN (05:15)
[2021-03-30] MEDS ORDERED: ACETAMINOPHEN 325 MG TABLET PO PRN (05:15)
[2021-03-30] MEDS ORDERED: MAGNESIUM HYDROXIDE 2,400 MG/30 ML ORAL.SUSP. PO ONE (05:30)
[2021-03-30] MEDS ORDERED: MORPHINE SULFATE 10 MG/ML SYRINGE. SQ ONE (05:30)
[2021-03-30] MEDS ORDERED: ONDANSETRON PF 4 MG/2 ML VIAL. IVP ONE (06:00)
--- NOTE | 2021-03-30 06:06 | RAD ---
EXAMINATION: XR ABDOMEN COMP ACUTE CLINICAL HISTORY: Abdominal pain EXAM DATE/TIME: 03/30/2021 4:15 AM COMPARISON: 03/27/2021 FINDINGS: Lines, Tubes, and Devices: Generator overlying the right chest. Cardiomediastinal Silhouette: Heart size at upper limits of normal. Lungs and Pleura: No evidence of focal airspace consolidation or pleural effusion. Pulmonary vasculat ure unremarkable. Bones and Soft Tissues: Degenerative changes of the thoracic spine. Abdomen: Nonspecific bowel gas pattern. No pathologic abdominal calcifications definitively visualize d. Cholecystectomy clips. Surgical material in the right pelvis. Increased density in the urinary ivis dder. IMPRESSION: Nonspecific bowel gas pattern. No evidence of acute cardiopulmonary abnormality. Electronically signed by: Kurt Marsh DO (03/30/2021 6:04 AM) JESSICA
[2021-03-30 06:20] VITALS: BP 109/67
--- NOTE | 2021-03-30 06:42 | RAD ---
EXAMINATION: CT ABDOMEN+PELVIS WO CLINICAL HISTORY: Large Hematuria, hx pas stones , pain on Rt. flank TECHNIQUE: Non-IV contrast imaging of the abdomen and pelvis was performed using standard technique, scanning from just above the dome of the diaphragm to the symphysis pubis. Unenhanced imaging is paige ited for the evaluation of some intra-abdominal and pelvic pathology. CT Dose Reduction Employed: One or more of the following individualized dose reduction techniques wer e utilized for this examination: 1. Automated exposure control 2. Adjustment of the mA and/or kV ac cording to patient size 3. Use of iterative reconstruction technique. COMPARISON: 12/06/2020 FINDINGS: Evaluation of the lower chest limited by motion artifact. Hepatosplenomegaly. Cholecystectomy. Pancreas and adrenal glands unremarkable. Hyperdensity in the bilateral collecting systems and urinary bladder, compatible with residual iodina jorge contrast, however, the patient has not had a recent contrast-enhanced exam at this hospital. This limits evaluation for urinary calculi. No urinary calculus definitively visualized. No evidence of o bstructive uropathy. Mild to moderately filled urinary bladder. Hysterectomy. No dilated bowel. Normal appendix. Prominent distention of the stomach with fluid and particulate mat ter. No abdominal aortic or iliac artery aneurysm. No evidence of acute osseous abnormality. IMPRESSION: No evidence of acute abdominopelvic abnormality. Hyperdensity suggestive of residual iodinated contrast in the urinary collecting system on this nonco ntrast exam limits evaluation for urinary calculi as described. No definitively visualized urinary ca lculus or evidence of obstructive uropathy. Hepatosplenomegaly. Electronically signed by: Kurt Marsh DO (03/30/2021 6:39 AM) [facility]
[2021-03-30] MEDS: IV NORMAL SALINE 1,000ML 1,000 ML IV SCH ×2 (08:14→12:00)
[2021-03-30] MEDS ORDERED: HYDROcodone/APAP 5/325MG 1 TAB TABLET PO PRN (09:45)
[2021-03-30] MEDS ORDERED: SENNOSIDES/DOCUSATE 8.6/50MG TABLET. PO PRN (09:45)
[2021-03-30] MEDS ORDERED: DESVENLAFAXINE 50 MG TAB.ER.24H. PO SCH (10:00)
[2021-03-30] MEDS ORDERED: PANTOPRAZOLE 40 MG TABLET. PO SCH (10:00)
[2021-03-30] MEDS ORDERED: FLUTICASONE/VILANTEROL 100/25 INHALER. INH PRN ×3 (10:00)
[2021-03-30] MEDS ORDERED: EMPAGLIFLOZIN 10 MG TABLET. PO SCH (10:00)
[2021-03-30] MEDS ORDERED: buPROPion SR 100 MG TABLET.SA. PO SCH (10:00)
[2021-03-30] MEDS ORDERED: FERROUS SULFATE 325 MG TABLET. PO SCH (10:00)
[2021-03-30] MEDS ORDERED: ALPRAZolam 0.5 MG TABLET PO PRN (10:00)
[2021-03-30 10:25] VITALS: BP 113/77
[2021-03-30] MEDS ORDERED: DEXTROSE 50% 25 GM / 50ML DISP.SYRIN. IV PRN (12:45)
[2021-03-30] MEDS ORDERED: MORPHINE SULFATE 2 MG/ML DISP.SYRIN. IV PRN (13:00)
[2021-03-30 14:44] VITALS: BP 110/66
[2021-03-30] MEDS ORDERED: ONDANSETRON PF 4 MG/2 ML VIAL. ONE (15:15)
[2021-03-30] MEDS ORDERED: INSULIN LISPRO 300 UNITS/3 ML VIAL. SQ SCH (17:00)
--- NOTE | 2021-03-30 18:17 | HP ---
ADMIT DATE: 03/30/2021 HISTORY OF PRESENT ILLNESS: A 40-year-old female who came in through the Emergency Room. Apparently while at work, the patient began to have substernal chest pain radiating down her left arm and into the left side of her neck. The patient was initially seen in the ER for further evaluation and the patient was admitted for rule out VT protocol. The patient's EKG did show possibility of some anterior septal damage and therefore was placed on the protocol as indicated. She denies any nausea, vomiting, diaphoresis, or shortness of breath. Nothing seemed to make it better or worse. The patient has not had any previous problems with her cardiovascular system. Apparently, there is a strong family history, however, of heart disease. PAST MEDICAL HISTORY: The patient has had a history of nasal surgery, sleep apnea, uterine prolapse, history of cervical cancer, breast reduction, kidney stones, diabetes, hypoglycemia, RODRIGUEZ, bipolar depression, previous suicide attempt. IMMUNIZATIONS: Tetanus, diphtheria, and pneumococcal vaccinations. FAMILY HISTORY: Mother with atrial fibrillation, and diabetes runs in the family. ALLERGIES: NONSTEROIDALS, ANTI-INFLAMMATORIES OF ALL SORTS, TORADOL, LEVAQUIN, SHELLFISH, AND VANCOMYCIN. SOCIAL HISTORY: The patient has a very distant history of smoking. Denies hard drug use. The patient is a full code. REVIEW OF SYSTEMS: As noted, the patient denies any headaches, visual changes, blurred vision, double vision. Does have some shortness of breath. Denies abdominal pain, denies any nausea, vomiting, hematochezia, or hematemesis. The patient is neurologically stable. The patient did forget to take her insulin or ran out of the insulin; and as a result of this, the patient did have some elevated blood sugars initially when she came in, although she was negative for ketones in her urine and negative acetone. PHYSICAL EXAMINATION: GENERAL: This is a pleasant white female, a little bit overweight. VITAL SIGNS: Her blood pressure 110/66, respiratory rate 106, afebrile, 98% on room air. HEENT: Atraumatic, normocephalic. Eyes, PERRLA without jaundice. Mouth and throat were normal. NECK: Supple without JVD, carotid bruits, or thyromegaly. LUNGS: Diminished, but basically clear. CARDIOVASCULAR: Regular sinus rhythm, S1, S2, without murmur, rub, thrill, or extra heart sounds. ABDOMEN: Protuberant, soft. No hepatosplenomegaly. No rebounding. EXTREMITIES: No clubbing, cyanosis. Trace edema noted. dorsalis pedis and posterior tibialis 2/4, good capillary refill. NEUROLOGIC: Speech fluent, spontaneous, appropriate. Cranial nerves II-XII are grossly intact. LABORATORY DATA: Cardiac enzymes negative. Elevated liver enzymes consistent with her RODRIGUEZ. Blood sugar initially approximately 390. IMPRESSION: Type 2 diabetes, poorly controlled, morbid obesity, moderate protein malnutrition, hematuria, elevated liver enzymes, history of non-alcoholic steatohepatitis. PLAN: The patient will be admitted, bring her sugars under control, fluids and monitor for any change. Cardiac, diabetic diet and make further evaluation on her as indicated. SEDRICK DR: JOHN/andrés TID: [id number]
[2021-03-30] MEDS ORDERED: QUEtiapine 100 MG TABLET. PO SCH (21:00)
[2021-03-30] MEDS ORDERED: NON FORMULARY ITEM (Cephalexin 1 TAB) PO SCH (21:00)
[2021-03-30] MEDS ORDERED: GABAPENTIN 300 MG CAPSULE. PO SCH (21:00)
== END 2021-03-30 16:00 | disposition left against medical advice (07) | DRG 638 ==
LOC: ER 03:23 → 1 SOUTH 05:56
PROVIDERS: ADMIT Family Medicine; ATTEND Family Medicine
DX: E11.65 Type 2 diabetes mellitus with hyperglycemia (principal); E44.0 Moderate protein-calorie malnutrition; K76.6 Portal hypertension; I10 Essential (primary) hypertension; E66.01 Morbid (severe) obesity due to excess calories; M79.7 Fibromyalgia; F41.9 Anxiety disorder, unspecified; G47.30 Sleep apnea, unspecified; G89.29 Other chronic pain; K21.9 Gastro-esophageal reflux disease without esophagitis; M19.90 Unspecified osteoarthritis, unspecified site; E78.00 Pure hypercholesterolemia, unspecified; E86.0 Dehydration; K75.81 Nonalcoholic steatohepatitis (NASH); F31.9 Bipolar disorder, unspecified; Z85.3 Personal history of malignant neoplasm of breast; Z83.3 Family history of diabetes mellitus; Z88.6 Allergy status to analgesic agent; Z88.1 Allergy status to other antibiotic agents; Z91.013 Allergy to seafood; Z87.891 Personal history of nicotine dependence; Z90.710 Acquired absence of both cervix and uterus; Z91.5 Personal history of self-harm; Z87.442 Personal history of urinary calculi; Z85.41 Personal history of malignant neoplasm of cervix uteri; Z68.33 Body mass index [BMI] 33.0-33.9, adult
CPT/HCPCS: 36415; 74022; 74176; 80048; 80076; 80307; 81001; 82550; 82947; 83690; 83735; 83880; 84443; 84484; 85025; 86705; 86709; 86803; 87340; 93005; 96361; 96365; 96372; J1815; J2270; J2405; 99285-25; J7030

== ENCOUNTER 2021-04-02 02:37 | Emergency (ER) | payer BC ==
[~2021-04-02] VITALS: Ht 165.1 cm; Wt 92.1 kg
[2021-04-02 02:40] VITALS: BP 122/76
[2021-04-02] MEDS ORDERED: IV RINGERS SOLUTION,LACTATED 1,000 ML IV ONE (03:00)
--- NOTE | 2021-04-02 03:16 | PHYS DOC ---
Past History Past Medical History: Anxiety, Arthritis, Bipolar, Depression, Diverticulitis, Diabetes, Fibromyalgia, GERD, High Cholesterol, Hypertension, Kidney Stones, UTI, Other Additional Past Medical Histor: STAGE 3 RODRIGUEZ, HYdradenitis supperativa,splenomegla, GASTRIC PORTAL HTN Past Surgical History: Cancer Surgery, Cholecystectomy, Hysterectomy, Tonsillectomy, Other Additional Past Surgical Histo: SLEEP APNEA DEVICE PLACEMENT Smoking: Cigarettes, Less than 1pk/day Alcohol Use: None Drug Use: None Adult General Chief Complaint Chief Complaint: HYPERGLYCEMIA HPI HPI Patient is a 40-year-old female with multiple comorbidities including insulin- dependent diabetes with a pump, anxiety, depression and fibromyalgia who presents to the emergency department with a chief complaint of hyperglycemia. States that the last time she ate was about 4 hours ago, and her pump is reading high. States that her pump states that she is reading high if it is over 400. 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 States that her primary care physician, Dr. Aly is also trying to help her get her diabetes under control. States she has been taking her insulin, NovoLog as prescribed as well as her long-acting insulin at night. Denies starting or stopping any new medications but states that her correspondence school teacher at has been trying to adjust levels. Denies any recent traumas, illnesses, travel, known ill contacts, Covid/flu/cold symptoms, chest pain, shortness of breath, abdominal pain, nausea, vomiting, dysuria, hematuria or blood in the stool. Denies any alcohol or drug use. Review of Systems Review of Systems Constitutional: Denies fever or chills [] Eyes: Denies change in visual acuity, redness, or eye pain [] HENT: Denies nasal congestion or sore throat [] Respiratory: Denies cough or shortness of breath [] Cardiovascular: No additional information not addressed in HPI [] GI: Denies abdominal pain, nausea, vomiting, bloody stools or diarrhea [] : Denies dysuria or hematuria [] Musculoskeletal: Denies back pain or joint pain [] Integument: Denies rash or skin lesions [] Neurologic: Denies headache, focal weakness or sensory changes [] Endocrine: Denies polyuria or polydipsia [] All other systems were reviewed and found to be within normal limits, except as documented in this note. Current Medications Current Medications Current Medications Medications (Trade) Dose Ordered Sig/Yoko Start Time Stop Time Status Last Admin Dose Admin Lactated Ringer's 1,000 ml @ 1,000 mls/hr 1X ONCE 04/02/21 03:00 04/02/21 03:59 Allergies Allergies Allergies Coded Allergies Type Severity Reaction Last Updated Verified ketorolac Allergy Intermediate Itching 03/27/21 Yes levofloxacin Allergy Intermediate 03/27/21 Yes shellfish derived Allergy Intermediate Swelling 03/27/21 Yes vancomycin Allergy Intermediate 03/27/21 Yes NSAIDS (Non-Steroidal Anti-Inflamma Allergy Unknown 03/27/21 Yes Physical Exam Physical Exam Constitutional: Well developed, well nourished, no acute distress, non-toxic appearance. [] HENT: Normocephalic, atraumatic, Eyes: PERRLA, conjunctiva normal, no discharge. [] Neck: Normal range of motion, Cardiovascular: Sinus tachycardia Lungs & Thorax: Bilateral breath sounds clear to auscultation [] Abdomen: soft, no tenderness, no masses, no pulsatile masses. [] Skin: Warm, dry, capillary refill 3 to 4 seconds, no erythema, no rash. [] Extremities: No tenderness, ROM intact, no edema. [] Neurologic: Alert and oriented X 3, normal motor function, normal sensory function, able to sit, stand and walk without issue, no focal deficits noted. [] Psychologic: Affect normal, judgement normal, mood normal. [] Current Patient Data Lab Results Laboratory Tests Test 04/02/21 02:50 Glucose (Fingerstick) 509 mg/dL (70-99) *H EKG EKG [] Radiology/Procedures Radiology/Procedures [] Heart Score C/O Chest Pain: No Risk Factors: Risk Factors: DM, Current or recent (<one month) smoker, HTN, HLP, family history of CAD, obesity. Risk Scores: Risk Factors: DM, Current or recent (<one month) smoker, HTN, HLP, family history of CAD, obesity. Course & Med Decision Making Course & Med Decision Making Patient is a 40-year-old female with a past medical history significant for insulin-dependent diabetes who presents to the emergency department with hyperglycemia Vital signs notable for sinus tachycardia. Physical exam noted above. Patient placed on the monitor with IV access ordered and IV fluids ordered as well as T ylenol for body aches. Shortly after arriving to the room and after evaluation patient stated that she thinks she would much rather go to since her correspondence school teacher is there and asked to be discharged. Both myself and ED nurse advised against this. Had a long conversation with patient that her heart rate was elevated above 100 which was tachycardia, she appeared dry and her blood sugar was over 500 here in the emergency department and could be having a diabetic emergency called diabetic ketoacidosis or HHS and explained to her that these are serious and she could be really sick and have also electrolyte abnormalities with her potassium and magnesium as well. Advised that leaving the emergency department before work-up was completed could be dangerous and could lead to significant illness, disability and even . Patient stated that she understood, and did not think she was that sick and was going to go to . Gave strict return precautions to this ED. Patient left AMA. [] Dragon Disclaimer Dragon Disclaimer This electronic medical record was generated, in whole or in part, using a voice recognition dictation system. Departure Departure: Impression: Primary Impression: Hyperglycemia Disposition: LEFT AGAINST MEDICAL ADVICE Condition: GUARDED Referrals: PEDRO PABLO JORDAN MD (PCP) LUKAS TRAVIS MD Apr 02, 2021 03:16
== END 2021-04-02 03:05 | disposition left against medical advice (07) ==
LOC: ER 02:37 → EDBD 02:37 → ER 03:05
DX: E11.65 Type 2 diabetes mellitus with hyperglycemia (principal); F41.9 Anxiety disorder, unspecified; K21.9 Gastro-esophageal reflux disease without esophagitis; E78.5 Hyperlipidemia, unspecified; I10 Essential (primary) hypertension; Z90.49 Acquired absence of other specified parts of digestive tract; Z90.710 Acquired absence of both cervix and uterus; Z87.442 Personal history of urinary calculi; Z88.1 Allergy status to other antibiotic agents; Z88.6 Allergy status to analgesic agent
CPT/HCPCS: 82947; 99282

== ENCOUNTER 2021-04-06 02:36 | Emergency (ER) | payer BC ==
[~2021-04-06] VITALS: Ht 165.1 cm; Wt 86.4 kg
--- NOTE | 2021-04-06 03:01 | PHYS DOC ---
Past History Past Medical History: Anxiety, Arthritis, Bipolar, Depression, Diverticulitis, Diabetes, Fibromyalgia, GERD, High Cholesterol, Hypertension, Kidney Stones, UTI, Other Additional Past Medical Histor: STAGE 3 RODRIGUEZ, HYdradenitis supperativa,splenomegla, GASTRIC PORTAL HTN Past Surgical History: Cancer Surgery, Cholecystectomy, Hysterectomy, Tonsillectomy, Other Additional Past Surgical Histo: SLEEP APNEA DEVICE PLACEMENT Smoking: Cigarettes, Less than 1pk/day Alcohol Use: None Drug Use: None General Adult EDM: Chief Complaint: HYPERGLYCEMIA HPI: HPI: " My sugars are up.. ".. I was at 3 days ago.. they still did not want to change my basal pump... My sugars were over 600 tonight.." Patient is a 40 year old female who presents with above hx and complaints of hyperglycemia. Pt. has frequent ED visits for hyperglycemia and chest pain work-ups. Patient monitor showed her sugars were more than 600 at home tonight. Patient has recent been at at that time they did not raise her baseline basal pump insulin feed. Patient has significant medical history with history of hypertension, RODRIGUEZ, periodic hypotension's, enteritis, pancreatitis, sleep apnea, CPAP, esophageal varices, obesity, GERD, diverticulitis, uterine prolapse, cervical cancer, recurrent episodes of hyperglycemia hyperosmolar episodes, bipolar disorder, fibromyalgia, chronic pain, chronic back pain, depression,'s history of suicide attempt on 09/28. Urinary tract infections, kidney stones, patient has had multiple surgeries consisting of nasal surgeries, tonsillectomy's, hysterectomies, hiatal hernias, laparoscopic evaluations, esophageal varices injections, diverticulitis, hernia surgeries and laparoscopic evaluations breast reduction, patient has history of severe allergy reactions to Toradol Levaquin shellfish and vancomycin. Patient has a 10-moso-igdl smoking history and occasional alcohol abuse. Patient denies any history of IV drug use. Denies any specific ill contacts. No recent travel out side of area. No recent changes in meds or basal insulin coverage. Review of Systems: Review of Systems: Constitutional: Denies fever or chills Eyes: Denies change in visual acuity HENT: Denies nasal congestion or sore throat Respiratory: Denies cough or shortness of breath Cardiovascular: Denies chest pain or edema GI: Complains of abdominal pain, nausea., vomiting, bloody stools or diarrhea : Denies dysuria Musculoskeletal: Reports chronic back pain or joint pain Integument: Denies rash Neurologic: Denies headache, focal weakness or sensory changes Endocrine: Complains of elevated glucose levels Lymphatic: Denies swollen glands Psychiatric: Complains of anxiety Family History: Family History: Family history positive for diabetes and atrial fibrillation Current Medications: Current Meds: See nursing for home meds Allergies: Allergies: Allergies Coded Allergies Type Severity Reaction Last Updated Verified ketorolac Allergy Intermediate Itching 03/27/21 Yes levofloxacin Allergy Intermediate 03/27/21 Yes shellfish derived Allergy Intermediate Swelling 03/27/21 Yes vancomycin Allergy Intermediate 03/27/21 Yes NSAIDS (Non-Steroidal Anti-Inflamma Allergy Unknown 03/27/21 Yes Physical Exam: PE: Constitutional: Reports acute distress, non-toxic appearance. [] HENT: Normocephalic, atraumatic, bilateral external ears normal, oropharynx moist, no oral exudates, nose normal. [] Eyes: PERRLA, EOMI, conjunctiva normal, no discharge. [] Neck: Normal range of motion, no tenderness, supple, no stridor. More than 17 inches circumference Cardiovascular: Tachycardia heart rate regular rhythm, no murmur []. PMI to left. Lungs & Thorax: Bilateral breath sounds equal apex with scattered wheezes and basilar crackles on auscultation [] Abdomen: Bowel sounds normal, soft, no tenderness, no masses, no pulsatile masses. [Wheeze. Old surgery scars. Skin: Warm, dry, no erythema, no rash. [] Back: No tenderness, no CVA tenderness. [] Extremities: No tenderness, no cyanosis, no clubbing, ROM intact, bilateral ankle edema. [] No cording. Neurologic: Alert and oriented X 3, moves extremities on request, does have distal sensory,, no focal deficits noted. [] Psychologic: Affect anxious, judgement normal, mood normal. [] EKG: EKG: EKG shows a sinus rhythm at 97 bpm. With left axis deviation., Fascicular block,-overall morphology appears similar to prior EKGs on file [] Radiology/Procedures: Radiology/Procedures: [][address] [address] IMAGING REPORT Signed PATIENT: SANFORD RANDHAWA ACCOUNT: [id number] : 1980 LOCATION: ER AGE: 40 SEX: F EXAM STATUS: REG ER ORD. PHYSICIAN: RICKIE LAMB MD REASON: pain PROCEDURE: ACUTE ABDOMEN SERIES XR ABDOMEN COMP ACUTE INDICATION: Reason: pain / Spl. Instructions: / History: . COMPARISON STUDY: None. FINDINGS: Lungs: Normal lung volume. No pulmonary mass or consolidation. The tracheobronchial tree and hilar structures are normal. Pleura: No pleural effusion or pneumothorax. Heart and Mediastinum: The cardiomediastinal silhouette is normal. The great vessels of the thorax are normal. Nerve stimulator device overlying the right hemithorax. Abdomen: Nonobstructive bowel gas pattern. No free air. IMPRESSION: 1. Nonobstructive bowel gas pattern. 2. No focal airspace disease. Electronically signed by: Karo Bahena MD (04/06/2021 6:10 AM) [facility] DICTATED AND SIGNED BY: KARO BAHENA MD DATE: 04/06/21609 CC: PEDRO PABLO JORDAN MD; RICKIE LAMB MD ~MTH0 0 Heart Score: C/O Chest Pain: Yes HEART Score for Chest Pain: HEART Score for Chest Pain Response (Comments) Value History Moderately Suspicious 1 ECG Nonspecific Repolarizatio 1 Age < 45 0 Risk Factors 1 or 2 Risk Factors 1 Troponin < Normal Limit 0 Total 3 Risk Factors: Risk Factors: DM, Current or recent (<one month) smoker, HTN, HLP, family history of CAD, obesity. Risk Scores: Score 0 - 3: 2.5% MACE over next 6 weeks - Discharge Home Score 4 - 6: 20.3% MACE over next 6 weeks - Admit for Clinical Observation Score 7 - 10: 72.7% MACE over next 6 weeks - Early Invasive Strategies Course & Med Decision Making: Course & Med Decision Making Pertinent Labs and Imaging studies reviewed. (See chart for details) Patient given boluses of normal saline. Patient started on insulin drip. Patient's blood sugar gradually reduced with titration as of insulin. Pt. discharge home and to continue current home meds. Keep follow up at . Impression: 1. Hyperglycemia-initial blood sugar 584,-with insulin drip reduction of serum glucose 578, 478,372m 298 2. History of RODRIGUEZ 3. Dehydration 4. Chronic pain 5. Exhibit Narcotic Seeking behaviors 6. Elevated AST 55 ALT 97 and alk phos 144 [] Dragon Disclaimer: Dragon Disclaimer: This electronic medical record was generated, in whole or in part, using a voice recognition dictation system. Departure Departure: Referrals: PEDRO PABLO JORDAN MD (PCP) Katerine Disclaimer This chart was dictated in whole or in part using Voice Recognition software in a busy, high-work load, and often noisy Emergency Department environment. It may contain unintended and wholly unrecognized errors or omissions. RICKIE LAMB MD Apr 06, 2021 03:01
[2021-04-06] MEDS ORDERED: ONDANSETRON PF 4 MG/2 ML VIAL. IVP ONE (03:15)
[2021-04-06] MEDS ORDERED: FAMOTIDINE 20 MG/2 ML VIAL IVP ONE (03:15)
[2021-04-06] MEDS ORDERED: IV NORMAL SALINE 1,000ML 1,000 ML IV SCH (03:15)
[2021-04-06] MEDS ORDERED: INSULIN REGULAR VIAL 100 UNIT in IV NORMAL SALINE 100ML 100 ML IV ONE (03:30)
[2021-04-06] MEDS ORDERED: IV NORMAL SALINE 1,000ML 1,000 ML IV ONE (03:30)
[2021-04-06 03:47] LABS: BACTERIA,URINE 0 /HPF (0-FEW); BILIRUBIN,URINE NEG (NEG); CLARITY,URINE CLEAR; COLOR,URINE YELLOW; GLUCOSE,URINE >=1000 mg/dL (NEG); NITRITE,URINE NEG (NEG); RBC,URINE 0 /HPF (0-2); SQUAMOUS EPITHELIAL CELL,UR MOD /LPF; UROBILINOGEN,URINE 0.2 mg/dL (0.2 mg/dL)
[2021-04-06 03:55] LABS: ALBUMIN 3.5 g/dL (3.4-5.0); CALCIUM 9.2 mg/dL (8.5-10.1); CREATININE 0.9 mg/dL (0.6-1.0); DIRECT BILIRUBIN 0.1 mg/dL (0.0-0.2); GFR 69.3; POTASSIUM 3.7 mmol/L (3.5-5.1); TOTAL BILIRUBIN 0.4 mg/dL (0.2-1.0); TOTAL PROTEIN 6.8 g/dL (6.4-8.2)
[2021-04-06 03:55] LABS: BARBITURATES NEG (NEG); BENZODIAZEPINES POS (NEG); CANNABINOIDS NEG (NEG); COCAINE NEG (NEG); METHADONE NEG (NEG); OPIATES NEG (NEG); PHENCYCLIDINE NEG (NEG)
[2021-04-06 03:58] LABS: AMPHETAMINE/METHAMPHETAMINE NEG (NEG)
[2021-04-06 04:01] LABS: BASO % 0 % (0-3); EOS # 0.1 x10^3/uL (0.0-0.7); EOS % 1 % (0-3); HEMATOCRIT 41.8 % (36.0-47.0); HEMOGLOBIN 14.1 g/dL (12.0-15.5); LYMPH # 2.4 x10^3/uL (1.0-4.8); LYMPH % 29 % (24-48); MEAN CORPUSCULAR HEMOGLOBIN 31 pg (25-35); MEAN CORPUSCULAR HGB CONC 34 g/dL (31-37); MEAN CORPUSCULAR VOLUME 91 fL (79-100); MONO # 0.5 x10^3/uL (0.0-1.1); MONO % 6 % (0-9); NEUT # 5.3 x10^3uL (1.8-7.7); NEUT % 64 % (31-73); PLATELET COUNT 167 x10^3/uL (140-400); RED CELL DISTRIBUTION WIDTH 16.4 % (11.5-14.5); WHITE BLOOD COUNT 8.3 x10^3/uL (4.0-11.0)
[2021-04-06] MEDS ORDERED: IV NORMAL SALINE 100ML 100 ML ONE (04:05)
[2021-04-06] MEDS ORDERED: ACETAMINOPHEN 500 MG TABLET PO ONE (05:30)
[2021-04-06 06:12] VITALS: BP 112/72
--- NOTE | 2021-04-06 06:13 | RAD ---
XR ABDOMEN COMP ACUTE INDICATION: Reason: pain / Spl. Instructions: / History: . COMPARISON STUDY: None. FINDINGS: Lungs: Normal lung volume. No pulmonary mass or consolidation. The tracheobronchial tree and hilar st ructures are normal. Pleura: No pleural effusion or pneumothorax. Heart and Mediastinum: The cardiomediastinal silhouette is normal. The great vessels of the thorax ar e normal. Nerve stimulator device overlying the right hemithorax. Abdomen: Nonobstructive bowel gas pattern. No free air. IMPRESSION: 1. Nonobstructive bowel gas pattern. 2. No focal airspace disease. Electronically signed by: Ramon Bahena MD (04/06/2021 6:10 AM) [facility]
--- NOTE | 2021-04-07 21:52 | EKG ---
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
== END 2021-04-06 06:30 | disposition home or self-care (01) ==
LOC: ER 02:36
DX: E11.65 Type 2 diabetes mellitus with hyperglycemia (principal); E86.0 Dehydration; K21.9 Gastro-esophageal reflux disease without esophagitis; E78.5 Hyperlipidemia, unspecified; I10 Essential (primary) hypertension; F17.210 Nicotine dependence, cigarettes, uncomplicated; Z90.49 Acquired absence of other specified parts of digestive tract; Z90.710 Acquired absence of both cervix and uterus; Z76.5 Malingerer [conscious simulation]; Z88.1 Allergy status to other antibiotic agents
CPT/HCPCS: 36415; 74022; 80048; 80076; 80307; 81001; 82550; 82947; 83690; 84484; 85025; 93005; 96365; 96366; 96375; 99285; J1815; J2405; J3490; J7030

== ENCOUNTER 2021-04-24 00:51 | Inpatient (IN) | payer BC ==
[~2021-04-24] VITALS: Ht 162.6 cm; Wt 89.5 kg
--- NOTE | 2021-04-24 01:01 | PHYS DOC ---
Past History Past Medical History: Anxiety, Arthritis, Bipolar, Depression, Diverticulitis, Diabetes, Fibromyalgia, GERD, High Cholesterol, Hypertension, Kidney Stones, UTI, Other Additional Past Medical Histor: STAGE 3 RODRIGUEZ, HYdradenitis supperativa,splenomegla, GASTRIC PORTAL HTN Past Surgical History: Cancer Surgery, Cholecystectomy, Hysterectomy, Tonsillectomy, Other Additional Past Surgical Histo: SLEEP APNEA DEVICE PLACEMENT Smoking: Cigarettes, Less than 1pk/day Alcohol Use: None Drug Use: None General Adult HPI: HPI: " My sugars are now back up over 600.. they did change my basal pump rate .. over the phone a week ago.. I still have my follow up at [facility].. on A ug... and on May 25.. and still doing phone consults for my pump at ..." Patient is a 40 year old female who presents with above hx and complaints of hyperglycemia. Patient states sugars at home were over 600. Glucose on arrival here was 485. Patient denies any dietary noncompliance. Patient has long history of episodes of hyperglycemia and chest pain work-ups. Patient follows at for her insulin pump management. Does have a significant medical history of hypertension, RODRIGUEZ, periodic hypotension episodes, enteritis, pancreatitis, sleep apnea, on CPAP, esophageal varices, morbid obesity, GERD, diverticulitis, uterine prolapse, cervical cancer, recurrent episodes of hyper molar hypoglycemia episodes, bipolar disorder, fibromyalgia, chronic pain, chronic back pain, depression, history of suicide attempt on 1220. Has had frequent urinary tract infections, kidney stones, multiple nasal surgeries, tonsillectomy's, hysterectomy, hiatal hernia repair, laparoscopic evaluations, breast reduction,. Patient has severe allergic reaction to Toradol, Levaquin, shellfish, and vancomycin. Patient does have a 91-[id number]-[id number] smoking history and occasional alcohol abuse. Patient denies any IV drug use. Patient denies any specific ill contacts. Patient denies any recent travel outside [facility] area. Patient does report change in her february shorten insulin coverage which was done over the phone with her diabetic clinic at . Review of Systems: Review of Systems: Constitutional: Denies fever or chills Eyes: Denies change in visual acuity HENT: Denies nasal congestion or sore throat Respiratory: Denies cough or shortness of breath Cardiovascular: Denies chest pain or edema GI: Planes of generalized abdominal pain, nausea. Denies, vomiting, bloody stools or diarrhea : Denies dysuria Musculoskeletal: Denies back pain or joint pain Integument: Denies rash Neurologic: Denies headache, focal weakness or sensory changes Endocrine: Complains of polyuria or polydipsia and elevated glucose levels Lymphatic: Denies swollen glands Psychiatric: Denies depression or anxiety Family History: Family History: Noncontributory to presentation Current Medications: Current Meds: Current Medications Medications (Trade) Dose Ordered Sig/Yoko Start Time Stop Time Status Last Admin Dose Admin Sodium Chloride 1,000 ml @ 1,000 mls/hr Q1H 04/24/21 01:30 04/24/21 02:29 Allergies: Allergies: Allergies Coded Allergies Type Severity Reaction Last Updated Verified ketorolac Allergy Intermediate Itching 03/27/21 Yes levofloxacin Allergy Intermediate 03/27/21 Yes shellfish derived Allergy Intermediate Swelling 03/27/21 Yes vancomycin Allergy Intermediate 03/27/21 Yes NSAIDS (Non-Steroidal Anti-Inflamma Allergy Unknown 03/27/21 Yes Physical Exam: PE: Constitutional: Reports acute abdomen pain and distress, non-toxic appearance. [] HENT: Normocephalic, atraumatic, bilateral external ears normal, oropharynx moist, no oral exudates, nose normal. Edentulous. Eyes: PERRLA, EOMI, conjunctiva normal, no discharge. [] Neck: Normal range of motion, no tenderness, supple, no stridor. [] Cardiovascular: Tachycardia heart rate regular rhythm, no murmur []. PMI to the left Lungs & Thorax: Bilateral breath sounds equal apex with scattered wheezes on auscultation [] Abdomen: Bowel sounds decreased, soft, generalized abdomen tenderness, no masses, no pulsatile masses. Old surgery scars. Obese. Distended. Skin: Warm, dry, no erythema, no rash. [] Back: No tenderness, no CVA tenderness. Surgery scar Extremities: No tenderness, no cyanosis, no clubbing, ROM intact, ankle edema. [] Neurologic: Alert and oriented X 3, moves all extremities on request, does have distal sensory,, no focal deficits noted. [] Psychologic: Affect anxious, judgement normal, mood normal. [] EKG: EKG: My interpretation of EKG 1 shows a sinus tachycardia 101 bpm. Left axis paul ges, anterior fascicular block, abnormal EKG. Time of this EKG was 0122 hrs. [] Radiology/Procedures: Radiology/Procedures: [][address] [address] IMAGING REPORT Signed PATIENT: SANFORD RANDHAWA ACCOUNT: [id number] : 1980 LOCATION: ER AGE: 40 SEX: F EXAM STATUS: PRE ER ORD. PHYSICIAN: RICKIE LAMB MD REASON: dyspnea PROCEDURE: PORTABLE CHEST 1V INDICATION: Reason: dyspnea / Spl. Instructions: / History: COMPARISON: September 2020 FINDINGS: Single view of chest obtained. Right-sided stimulator device. Cardiac silhouette is similar to prior. Relative lucency at the right greater than left lung apex is again seen. mild interstitial opacities bilaterally. IMPRESSION: * Mild interstitial opacities most prominent at right lower lung. Could be from mild pulmonary vascular congestion or mild interstitial infiltrate. Electronically signed by: Ai Martinez MD (04/24/2021 1:56 AM) [id number] DICTATED AND SIGNED BY: AI MARTINEZ MD DATE: 04/24/21 0154 CC: PEDRO PABLO JORDAN MD; RICKIE LAMB MD ~MTH0 0 Heart Score: C/O Chest Pain: Yes HEART Score for Chest Pain: HEART Score for Chest Pain Response (Comments) Value History Moderately Suspicious 1 ECG Nonspecific Repolarizatio 1 Age < 45 0 Risk Factors 1 or 2 Risk Factors 1 Troponin < Normal Limit 0 Total 3 Risk Factors: Risk Factors: DM, Current or recent (<one month) smoker, HTN, HLP, family history of CAD, obesity. Risk Scores: Score 0 - 3: 2.5% MACE over next 6 weeks - Discharge Home Score 4 - 6: 20.3% MACE over next 6 weeks - Admit for Clinical Observation Score 7 - 10: 72.7% MACE over next 6 weeks - Early Invasive Strategies Course & Med Decision Making: Course & Med Decision Making Pertinent Labs and Imaging studies reviewed. (See chart for details) Discussed presentation, testing and treatment plan with Dr. Aly. Advised admit to his service for insulin drip and rehydration. Impression; 1. Hyperglycemia-600 and above at home, 485 on arrival ED, to 519, to 524, to 418 2. History of RODRIGUEZ 3. Dehydration 4. Chronic pain 5. Exhibits possible Narcotic Seeking Behaviors 6. Elevated AST 85 [id number] Alk. Phos 169 7 . Hematuria [] Dragon Disclaimer: Katerine Disclaimer: This electronic medical record was generated, in whole or in part, using a voice recognition dictation system. Departure Departure: Referrals: PEDRO PABLO JORDAN MD (PCP) Katerine Disclaimer This chart was dictated in whole or in part using Voice Recognition software in a busy, high-work load, and often noisy Emergency Department environment. It may contain unintended and wholly unrecognized errors or omissions. RICKIE LAMB MD Apr 24, 2021 01:01
[2021-04-24] MEDS ORDERED: IV NORMAL SALINE 1,000ML 1,000 ML IV SCH (01:30)
[2021-04-24] MEDS ORDERED: MORPHINE SULFATE 10 MG/ML SYRINGE. SQ ONE ×2 (01:30→02:00)
[2021-04-24] MEDS ORDERED: ONDANSETRON PF 4 MG/2 ML VIAL. IVP ONE ×2 (01:30→02:00)
[2021-04-24] MEDS ORDERED: INSULIN REGULAR VIAL 100 UNIT in IV NORMAL SALINE 100ML 100 ML IV ONE (01:30)
[2021-04-24] MEDS ORDERED: IV NORMAL SALINE 100ML 100 ML ONE (01:44)
[2021-04-24 01:46] LABS: BASO # 0.1 x10^3/uL (0.0-0.2); BASO % 1 % (0-3); EOS # 0.1 x10^3/uL (0.0-0.7); EOS % 1 % (0-3); HEMATOCRIT 40.9 % (36.0-47.0); HEMOGLOBIN 13.8 g/dL (12.0-15.5); LYMPH # 2.2 x10^3/uL (1.0-4.8); LYMPH % 26 % (24-48); MEAN CORPUSCULAR HEMOGLOBIN 31 pg (25-35); MEAN CORPUSCULAR HGB CONC 34 g/dL (31-37); MEAN CORPUSCULAR VOLUME 91 fL (79-100); MONO # 0.6 x10^3/uL (0.0-1.1); MONO % 7 % (0-9); NEUT # 5.6 x10^3uL (1.8-7.7); NEUT % 66 % (31-73); PLATELET COUNT 162 x10^3/uL (140-400); RED CELL DISTRIBUTION WIDTH 16.8 % (11.5-14.5); WHITE BLOOD COUNT 8.4 x10^3/uL (4.0-11.0)
[2021-04-24 01:51] LABS: BARBITURATES NEG (NEG); BENZODIAZEPINES POS (NEG); CANNABINOIDS NEG (NEG); COCAINE NEG (NEG); METHADONE NEG (NEG); OPIATES POS (NEG); PHENCYCLIDINE NEG (NEG)
[2021-04-24 01:53] LABS: BILIRUBIN,URINE NEG (NEG); CLARITY,URINE CLEAR; COLOR,URINE YELLOW; GLUCOSE,URINE >=1000 mg/dL (NEG)
[2021-04-24 01:54] LABS: BACTERIA,URINE 0 /HPF (0-FEW); NITRITE,URINE NEG (NEG); SQUAMOUS EPITHELIAL CELL,UR OCC /LPF; UROBILINOGEN,URINE 0.2 mg/dL (0.2 mg/dL); WBC,URINE 0 /HPF (0-4)
--- NOTE | 2021-04-24 01:58 | RAD ---
INDICATION: Reason: dyspnea / Spl. Instructions: / History: COMPARISON: September 2020 FINDINGS: Single view of chest obtained. Right-sided stimulator device. Cardiac silhouette is similar to prior. Relative lucency at the right greater than left lung apex is again seen. mild interstitial opacities bilaterally. IMPRESSION: * Mild interstitial opacities most prominent at right lower lung. Could be from mild pulmonary vascu lar congestion or mild interstitial infiltrate. Electronically signed by: rPatik Martinez MD (04/24/2021 1:56 AM) [id number]
[2021-04-24 02:06] LABS: ALBUMIN 3.4 g/dL (3.4-5.0); CREATININE 0.8 mg/dL (0.6-1.0); DIRECT BILIRUBIN 0.2 mg/dL (0.0-0.2); GFR 79.4; MAGNESIUM 1.8 mg/dL (1.8-2.4); POTASSIUM 3.9 mmol/L (3.5-5.1); TOTAL BILIRUBIN 0.6 mg/dL (0.2-1.0); TOTAL PROTEIN 7.3 g/dL (6.4-8.2)
[2021-04-24 02:10] LABS: AMPHETAMINE/METHAMPHETAMINE NEG (NEG)
[2021-04-24] MEDS ORDERED: ONDANSETRON PF 4 MG/2 ML VIAL. IVP PRN (03:00)
[2021-04-24] MEDS ORDERED: ACETAMINOPHEN 325 MG TABLET PO PRN (03:00)
--- NOTE | 2021-04-24 03:07 | EKG ---
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
[2021-04-24 04:10] VITALS: BP 105/68
[2021-04-24] MEDS: IV RINGERS SOLUTION,LACTATED 1,000 ML IV SCH ×5 (04:18→23:00)
[2021-04-24] MEDS ORDERED: IPRATRPIUM/ALBUTEROL 0.5/2.5MG 3 ML NEBU. ONE (04:49)
[2021-04-24] MEDS: IPRATRPIUM/ALBUTEROL 0.5/2.5MG 3 ML NEBU. NEB SCH ×4 (06:02→20:00)
--- NOTE | 2021-04-24 06:21 | EKG ---
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
[2021-04-24] MEDS ORDERED: HYDROcodone/APAP 5/325MG 1 TAB TABLET PO PRN (09:00)
[2021-04-24] MEDS ORDERED: SENNOSIDES/DOCUSATE 8.6/50MG TABLET. PO PRN (09:00)
[2021-04-24] MEDS ORDERED: METOCLOPRAMIDE HCL 10 MG/2 ML VIAL. IVP PRN (09:00)
[2021-04-24] MEDS ORDERED: CYCLOBENZAPRINE 10 MG TABLET. PO PRN (09:00)
[2021-04-24] MEDS ORDERED: NON FORMULARY ITEM (Umeclidinium Brm/Vilanterol Tr (Anoro Ellipta 62.5-25 Mcg Inh) 1 EACH) IH PRN (09:00)
[2021-04-24] MEDS ORDERED: INSULIN REGULAR VIAL 100 UNIT in IV NORMAL SALINE 100ML 100 ML IV PRN (09:15)
[2021-04-24] MEDS: DESVENLAFAXINE 50 MG TAB.ER.24H. PO SCH (09:30)
[2021-04-24 09:44] VITALS: BP 92/60
[2021-04-24] MEDS: FERROUS SULFATE 325 MG TABLET. PO SCH (10:03)
[2021-04-24] MEDS: buPROPion SR 100 MG TABLET.SA. PO SCH (10:04)
[2021-04-24] MEDS: ALPRAZolam 0.5 MG TABLET PO PRN ×2 (10:05→22:38)
--- NOTE | 2021-04-24 10:43 | RAD ---
CT abdomen pelvis without contrast dated 04/24/2021. Comparison made to 03/30/2021. CLINICAL INDICATION: Abdominal pain and bloating. TECHNIQUE: Contiguous axial imaging the abdomen pelvis performed without the administration of IV or oral contra st. One or more of the following individualized dose reduction techniques were utilized for this examinat ion: 1. Automated exposure control 2. Adjustment of the mA and/or kV according to patient size 3. Use of iterative reconstruction technique. FINDINGS: Limited images of lung bases show patchy groundglass opacity in the lower lobes, likely atelectasis. Heart size is upper limits of normal. No pleural or pericardial effusion. Solid abdominal viscera not well evaluated in the absence of contrast material. No apparent attenuati on abnormality of the liver or spleen. Gallbladder surgically absent. Pancreas, adrenal glands unrema rkable. There is a 10 mm calcific density at the midpole left kidney that is new from prior study, likely rel ated to a small amount of contrast material trapped within a calyceal diverticulum. No ureteral stone or hydronephrosis. Kidneys are otherwise homogeneous. Unopacified GI tract normal in caliber and contour. No bowel wall thickening. No inflammatory strandi ng in the mesentery. No ascites or lymphadenopathy. Appendix normal in caliber. Abdominal aorta curry l in caliber. Evidence of prior umbilical hernia repair. Images of pelvis show mildly distended urinary bladder. The uterus is surgically absent. No free flui d or pelvic lymphadenopathy. Bone windows show no acute finding. Multilevel spondylosis. IMPRESSION: 1. No acute abnormality of abdomen or pelvis. Normal appendix. 2. Status post cholecystectomy and hysterectomy. Electronically signed by: Farhan Gray MD (04/24/2021 10:41 AM) [id number]
--- NOTE | 2021-04-24 14:11 | HP ---
ADMIT DATE: 04/24/2021 HISTORY OF PRESENT ILLNESS: A 40-year-old female, who came in through the emergency room. The patient in turn was noted that sugars were back up over 600. She has multiple followups with and [facility]. They tried to change her basal pump rate, apparently that has not been successful. The patient notes that she has been feeling fairly tired and run down. She has basically noncompliant and as a result of her sugars over 600 and being dehydrated, the patient was admitted to the hospital for further evaluation and treatment. PAST MEDICAL HISTORY: That of noncompliance, type 1 diabetes, tonsillitis, nose surgery, tonsillectomy, adenoidectomy, cardiac disorder, sleep apnea, implanted Inspire CPAP device, esophageal disorder, esophageal varices, diverticulitis, pancreatitis, cholecystectomy, obesity, abdominal pain, epigastric pain, gastroesophageal reflux, reproductive disorders, hysterectomy, uterine prolapse, cervical cancer, breast reduction, hysterectomy, Pap smear, kidney stones, chronic back pain, diabetes as indicated, liver disease, psychiatric problems, suicidal attempt 09/2020, bipolar depression, smoking history as indicated, smoking cessation day in 02/2020, cancer of the cervix. Tetanus vaccines up to date. ALLERGIES: SUPPOSEDLY TO NONSTEROIDALS, KETOROLAC, LEVAQUIN, SHELLFISH DERIVED AND VANCOMYCIN. SOCIAL HISTORY: The patient has about a 97-ucwo-tjvn history of smoking, eventually quit about approximately a year ago. Occasional alcohol use. No hard drug use outside of what is prescribed for her. She is a full code. REVIEW OF SYSTEMS: The patient notes increased tiredness, fatigue, increased urination, headaches and just feeling blah and tired. She denies chest pain, shortness of breath. Does have abdominal pain and does have some nausea with this as well. The patient feels bloated and has been not able to really have a good bowel movement nor any problems. She has had problems with urination as well. PHYSICAL EXAMINATION: GENERAL: The patient is a pleasant white female, looking older than stated age. VITAL SIGNS: Blood pressure 92/60, respiratory rate 20, pulse 90. She is afebrile. Running low-grade temperature of 99, pulse up to 104. HEAT: Atraumatic, normocephalic. EYES: PERRLA without jaundice. MOUTH AND THROAT: Poor dentition. NECK: Supple, without JVD or thyromegaly. LUNGS: Diminished throughout. Poor movement of air. CARDIOVASCULAR: Regular sinus rhythm. ABDOMEN: Markedly protuberant, firm, tender to touch, guarding, but no rebounding, positive bowel sounds. No hepatosplenomegaly noted. No bruits were noted. EXTREMITIES: No clubbing, cyanosis, nor edema. NEUROLOGIC: The patient was alert and oriented x3. LABORATORY DATA: The patient's CBC was perfectly normal. Hemoglobin 13 and 40. Chemistries outside of the sugars up to 600 or so. Sodium 136, 3.9. BUN and creatinine 18 and 0.8. Liver enzymes elevated 85, 127, alkaline phosphatase 169. ASSESSMENT AND PLAN: The patient placed on an insulin drip per protocol. We will continue to monitor. Do a bladder scan and the like. Type 2 diabetes, severe hyperglycemia, dehydration, chronic pain, obstipation, abdominal pain, bipolar disease. Continue to monitor patient and accordingly make further evaluation on her as indicated. We will continue on the insulin pump, fluids and make further evaluation of her abdominal pain, which I think may be gastroparetic as well as her bladder situation. NEGRA DR: Maricruz TID: [id number]
[2021-04-24 15:41] VITALS: BP 98/56
[2021-04-24 16:00] LABS: THYROID STIM HORMONE (TSH) 2.015 uIU/mL (0.358-3.740)
[2021-04-24] MEDS ORDERED: DEXTROSE 50% 25 GM / 50ML DISP.SYRIN. IV PRN (18:15)
[2021-04-24] MEDS ORDERED: BISACODYL 10 MG SUPP.RECT PR PRN (18:15)
[2021-04-24 19:45] VITALS: BP 124/67
[2021-04-24] MEDS ORDERED: METHYLNALTREXONE 12 MG/0.6 ML VIAL. SQ ONE (20:00)
[2021-04-24] MEDS: BUDESONIDE 0.5 MG/2 ML NEBU NEB SCH (20:00)
[2021-04-24] MEDS ORDERED: GABAPENTIN 300 MG CAPSULE. PO SCH (21:00)
[2021-04-24] MEDS ORDERED: QUEtiapine 100 MG TABLET. PO SCH (21:00)
[2021-04-24] MEDS: METOCLOPRAMIDE 10 MG TABLET PO SCH (21:16)
[2021-04-24] MEDS: NALOXEGOL OXALATE 25 MG TABLET. PO SCH (21:16)
[2021-04-25 06:27] VITALS: BP 121/76
[2021-04-25] MEDS: IV RINGERS SOLUTION,LACTATED 1,000 ML IV SCH ×2 (06:44→11:03)
[2021-04-25] MEDS ORDERED: PANTOPRAZOLE 40 MG TABLET. PO SCH (07:30)
[2021-04-25] MEDS: FERROUS SULFATE 325 MG TABLET. PO SCH (09:17)
[2021-04-25] MEDS: buPROPion SR 100 MG TABLET.SA. PO SCH (09:17)
[2021-04-25] MEDS: METOCLOPRAMIDE 10 MG TABLET PO SCH ×2 (09:17→12:09)
[2021-04-25] MEDS: NALOXEGOL OXALATE 25 MG TABLET. PO SCH (09:17)
[2021-04-25] MEDS: DESVENLAFAXINE 50 MG TAB.ER.24H. PO SCH (09:18)
[2021-04-25] MEDS: BUDESONIDE 0.5 MG/2 ML NEBU NEB SCH ×2 (09:20→11:59)
[2021-04-25] MEDS: INSULIN LISPRO 300 UNITS/3 ML VIAL. SQ SCH ×2 (09:27→12:08)
[2021-04-25 11:24] VITALS: BP 133/86
[2021-04-25 15:36] VITALS: BP 144/79
--- NOTE | 2021-04-26 03:16 | PN ---
SUBJECTIVE: The patient resting fairly comfortably, came in with severe hyperglycemia, sugars greater than 600. The patient has not been taking her medications. The patient's blood sugars gone in the 180s on sliding scale and will continue to be monitored carefully. Still fairly weak, 11-20 red blood cells in her urine. Need to be evaluated later, but the patient is making good progress. Transferred to the floor for further evaluation, PT, OT. OBJECTIVE: VITAL SIGNS: Blood pressure ____, respiratory rate 16, pulse 60, afebrile, 95%. GENERAL: The patient alert and oriented. LUNGS: Diminished, basically clear. CARDIOVASCULAR: Regular sinus rhythm, S1, S2, without murmur, rub, thrill, or extra heart sound. ABDOMEN: Soft, nontender. NEUROLOGIC: The patient has generalized weakness and lethargy. PLAN: We will continue with PT, OT and make further adjustments on her medications as indicated, but so far so good on adjustment of her medications. We will continue to work with her over on her diabetic education, diet education and make further evaluation. IMPRESSION: Type 2 diabetes, poorly controlled; hyperglycemia; generalized weakness; hypertriglyceridemia; elevated liver enzymes; 85 on AST, 127 ALT, alkaline phosphatase 169. JOHN/RONALD/ALAYNA DR: JOHN/andrés TID: [id number]
--- NOTE | 2021-04-27 19:41 | DS ---
DATE OF DISCHARGE: 04/25/2021 HOSPITAL COURSE: A 40-year-old female came into the emergency room with sugar back over 600. The patient apparently has been followed at and [facility] for her diabetes, she is on an insulin pump; however, that has not been able to be successful in controlling her blood sugars. As a result of her elevated blood sugars and uncontrolled situation there, the patient was admitted to the hospital for further evaluation and treatment of her hyperglycemia. The patient did not have ketones in her urine, but as noted, was extremely dehydrated and given IV fluids as well as IV insulin to get her sugar down under control. The patient also complained of abdominal distention and discomfort and had some nausea, although her CT scan of her abdomen and pelvis was basically unremarkable in that regard. The patient in turn probably was having gastroparesis, was given some Reglan, which seemed to help her, with that of course, along with getting her sugars down into a more reasonable range. The patient's CBC was basically all within normal limits. Hemoglobin 13 and hematocrit 40. Chemistries as noted; 136, 3.9, 8, 0.8. Her sugar over 500. AST elevated at 85. ALT 127, high. Alkaline phosphatase 169, elevated. Troponins negative. Triglycerides 190. Rest of the cholesterol was pretty much unremarkable. Thyroid was normal. Lipase was normal. The patient made good progress during her hospitalization and continued to be monitored for her sugar. Diabetic education with and other endocrinology, resin coater to help control the sugar on a regular basis. IMPRESSION: Hyperglycemia with extremely poor control, elevated liver enzymes, abdominal discomfort, gastroparesis, hypertriglyceridemia, hematuria. The patient will be on a diabetic diet on discharge and followup accordingly as an outpatient. Continue to monitor her sugars on a regular and cautious basis. JOHN/LIDIA/FLAVIO DR: JOHN/andrés TID: [id number]
== END 2021-04-25 16:31 | disposition home or self-care (01) | DRG 639 ==
LOC: ER 00:51 → ICU 03:58 → ER 04:03
PROVIDERS: ADMIT Family Medicine; ATTEND Family Medicine
DX: E11.65 Type 2 diabetes mellitus with hyperglycemia (principal); F41.9 Anxiety disorder, unspecified; G47.30 Sleep apnea, unspecified; K21.9 Gastro-esophageal reflux disease without esophagitis; E78.00 Pure hypercholesterolemia, unspecified; M79.7 Fibromyalgia; E86.0 Dehydration; G89.29 Other chronic pain; F31.9 Bipolar disorder, unspecified; I10 Essential (primary) hypertension; K59.00 Constipation, unspecified; M19.90 Unspecified osteoarthritis, unspecified site; E78.1 Pure hyperglyceridemia; Z96.41 Presence of insulin pump (external) (internal); Z85.41 Personal history of malignant neoplasm of cervix uteri; Z85.3 Personal history of malignant neoplasm of breast; Z91.5 Personal history of self-harm; Z91.19 Patient's noncompliance with other medical treatment and regimen; Z91.14 Patient's other noncompliance with medication regimen; Z90.710 Acquired absence of both cervix and uterus; Z87.891 Personal history of nicotine dependence; Z79.4 Long term (current) use of insulin; Z88.8 Allergy status to other drugs, medicaments and biological substances
CPT/HCPCS: 36415; 71045; 74176; 80048; 80061; 80076; 80307; 81001; 82550; 82947; 83690; 83735; 83880; 84443; 84484; 85025; 93005; 94640; 96365; 96366; 96372; 96375; J1815; J2212; J2270; J2405; J3010; J7120; 99285-25; J7030

== ENCOUNTER 2021-05-01 23:53 | Emergency (ER) | payer BC ==
[~2021-05-01] VITALS: Ht 162.6 cm; Wt 90.4 kg
[2021-05-02] MEDS ORDERED: IV RINGERS SOLUTION,LACTATED 1,000 ML IV ONE ×2 (00:45→02:30)
[2021-05-02] MEDS ORDERED: ONDANSETRON ODT 4 MG TAB.RAPDIS PO ONE (01:15)
--- NOTE | 2021-05-02 01:29 | PHYS DOC ---
Past History Past Medical History: Anxiety, Arthritis, Bipolar, Depression, Diverticulitis, Diabetes, Fibromyalgia, GERD, High Cholesterol, Hypertension, Kidney Stones, UTI, Other Additional Past Medical Histor: STAGE 3 RODRIGUEZ, HYdradenitis supperativa,splenomegla, GASTRIC PORTAL HTN Past Surgical History: Cancer Surgery, Cholecystectomy, Hysterectomy, Tonsillectomy, Other Additional Past Surgical Histo: SLEEP APNEA DEVICE PLACEMENT,cervical cancer Smoking: Cigarettes, Less than 1pk/day Alcohol Use: None Drug Use: None Adult General Chief Complaint Chief Complaint: HYPERGLYCEMIA HPI HPI Patient is a 40-year-old female with a past medical history significant for insulin-dependent diabetes who presents with hyperglycemia. States she has been taking her insulin but noticed her blood sugar was greater than 400 at home. States she is had some mild nausea as well and some fatigue. Denies any recent traumas, travels, illnesses, fevers, chest pain, shortness of breath, vomiting, dysuria, hematuria, diarrhea or blood in the stool. States she just took 15 units of her subcu insulin at dinnertime couple hours before coming into the ED. Review of Systems Review of Systems Review of systems otherwise unremarkable except noted in HPI Current Medications Current Medications Current Medications Medications (Trade) Dose Ordered Sig/Yoko Start Time Stop Time Status Last Admin Dose Admin Lactated Ringer's 1,000 ml @ 1,000 mls/hr 1X ONCE 05/02/21 00:45 05/02/21 01:44 05/02/21 01:00 1,000 MLS/HR Ondansetron HCl (Zofran Odt) 8 mg 1X ONCE 05/02/21 01:15 05/02/21 01:21 DC Allergies Allergies Allergies Coded Allergies Type Severity Reaction Last Updated Verified NSAIDS (Non-Steroidal Anti-Inflamma Allergy Intermediate 05/02/21 Yes ketorolac Allergy Intermediate Itching 05/02/21 Yes levofloxacin Allergy Intermediate 05/02/21 Yes shellfish derived Allergy Intermediate Swelling 05/02/21 Yes vancomycin Allergy Intermediate 05/02/21 Yes Physical Exam Physical Exam Constitutional: Well developed, well nourished, no acute distress, non-toxic appearance. [] HENT: Normocephalic, atraumatic, Eyes: conjunctiva normal, no discharge. [] Neck: Normal range of motion, no tenderness, supple, no stridor. [] Cardiovascular:Heart rate regular rhythm, no murmur [] Lungs & Thorax: Bilateral breath sounds clear to auscultation [] Abdomen: soft, no tenderness, no masses, no pulsatile masses. [] Skin: Warm, dry, no erythema, no rash. [] Back: No tenderness, no CVA tenderness. [] Extremities: No tenderness, ROM intact, no edema. [] Neurologic: Alert and oriented X 3, no focal deficits noted. [] Psychologic: Affect normal, judgement normal, mood normal. [] Current Patient Data Vital Signs Vital Signs Date Time Temp Pulse Resp B/P (MAP) Pulse Ox O2 Delivery O2 Flow Rate FiO2 05/02/21 00:00 98.1 107 20 114/79 95 Room Air Lab Results Laboratory Tests Test 05/02/21 00:04 Glucose (Fingerstick) 590 mg/dL (70-99) *H EKG EKG [] Radiology/Procedures Radiology/Procedures [] Heart Score C/O Chest Pain: No Risk Factors: Risk Factors: DM, Current or recent (<one month) smoker, HTN, HLP, family history of CAD, obesity. Risk Scores: Risk Factors: DM, Current or recent (<one month) smoker, HTN, HLP, family history of CAD, obesity. Course & Med Decision Making Course & Med Decision Making Patient is a 40-year-old female who presents with hyperglycemia Vital signs not concerning. Physical exam noted above. Peripheral IV placed and IV fluid resuscitation begun. Blood sugar greater than 500. Blood gas with a pH of 7.4, bicarb of 27 so patient is not acidemic. Given Zofran. After IV fluid resuscitation, nausea and pain control patient states she was feeling much better and ready to be discharged home. Repeat blood sugar 373. No ketones in the urine. Discussed blood sugar management at home. Advised on diet. Advised to follow- up with primary care physician first thing Tuesday morning to set up a follow-up visit. Gave strict return precautions to the ED. Patient grateful, verbalized understanding and agreed with plan of discharge. [] Dragon Disclaimer Dragon Disclaimer This electronic medical record was generated, in whole or in part, using a voice recognition dictation system. Departure Departure: Impression: Primary Impression: Hyperglycemia Disposition: HOME / SELF CARE / HOMELESS Condition: GOOD Referrals: PEDRO PABLO JORDAN MD (PCP) Patient Instructions: Hyperglycemia Additional Instructions: Thank you for coming into the emergency department tonight and allowing us to take care of you. Please read all of the attached information very carefully to go back over what we discussed. Please be sure to check your blood sugar several times daily, and eat appropriately. Please be sure to use your insulin as prescribed. Please drink plenty of fluids. Please call your primary care physician first thing Tuesday morning to update on your ED visit and set up a follow-up visit as soon as possible for reevaluation. Please come back to the ED with new or concerning symptoms as discussed. LUKAS TRAVIS MD May 02, 2021 01:29
[2021-05-02 01:36] LABS: BILIRUBIN,URINE NEG (NEG); CLARITY,URINE HAZY; COLOR,URINE STRAW; GLUCOSE,URINE >=1000 mg/dL (NEG)
[2021-05-02 01:37] LABS: BACTERIA,URINE FEW /HPF (0-FEW); NITRITE,URINE NEG (NEG); RBC,URINE >40 /HPF (0-2); SQUAMOUS EPITHELIAL CELL,UR FEW /LPF; UROBILINOGEN,URINE 0.2 mg/dL (0.2 mg/dL); WBC,URINE 0 /HPF (0-4)
[2021-05-02] MEDS ORDERED: oxyCODONE/APAP 5/325 1 TAB TABLET PO ONE (02:00)
[2021-05-02] MEDS ORDERED: oxyCODONE IR 5 MG TABLET PO PRN (02:15)
[2021-05-02 04:58] VITALS: BP 105/69
== END 2021-05-02 05:15 | disposition home or self-care (01) ==
LOC: ER 23:53
DX: E11.65 Type 2 diabetes mellitus with hyperglycemia (principal); F41.9 Anxiety disorder, unspecified; M19.90 Unspecified osteoarthritis, unspecified site; F31.9 Bipolar disorder, unspecified; M79.7 Fibromyalgia; E11.9 Type 2 diabetes mellitus without complications; E78.00 Pure hypercholesterolemia, unspecified; I10 Essential (primary) hypertension; F17.210 Nicotine dependence, cigarettes, uncomplicated; Z87.442 Personal history of urinary calculi; Z87.440 Personal history of urinary (tract) infections; Z90.49 Acquired absence of other specified parts of digestive tract; Z90.710 Acquired absence of both cervix and uterus; Z88.6 Allergy status to analgesic agent; Z88.1 Allergy status to other antibiotic agents; Z91.013 Allergy to seafood
CPT/HCPCS: 81001; 82803; 82947; 96360; 96361; 99284; J7120; Q0162

== ENCOUNTER 2021-05-04 00:27 | Emergency (ER) | payer BC | END 2021-05-04 00:42 | disposition left against medical advice (07) | LOC: ER 00:27 | DX: R73.9 Hyperglycemia, unspecified (principal); Z53.21 Procedure and treatment not carried out due to patient leaving prior to being seen by health care provider ==

== ENCOUNTER 2021-05-04 17:51 | Emergency (ER) | payer BC ==
[~2021-05-04] VITALS: Ht 165.1 cm; Wt 85.0 kg
--- NOTE | 2021-05-04 19:20 | PHYS DOC ---
Past History Past Medical History: Anxiety, Arthritis, Bipolar, Depression, Diverticulitis, Diabetes, Fibromyalgia, GERD, High Cholesterol, Hypertension, Kidney Stones, UTI, Other Additional Past Medical Histor: RODRIGUEZ (ZAHEER ROSEN APRN) Past Surgical History: Hysterectomy, Other Additional Past Surgical Histo: hernia, ankle (ZAHEER ROSEN APRN) Smoking: Cigarettes, Less than 1pk/day Alcohol Use: None Drug Use: None (ZAHEER ROSEN APRN) General Adult EDM: Chief Complaint: HIP PAIN HPI: HPI: Patient is a 40-year-old female who presents with bilateral hip and knee pain that started a few days ago. Patient reports that she saw her primary care provider and had x-rays ordered but was unable to make an appointment to get those done. Patient rates her pain 9 out of 10. She denies any injury. No treatment prior to arrival. No radiation of pain. Patient is able to bear weight and ambulate with steady gait. Patient reports loss of bladder but denies loss of bowel or saddle anesthesias. (ZAHEER ROSEN APRN) Review of Systems: Review of Systems: 14 body systems of the review of systems have been reviewed. See HPI for pertinent positive and negative responses, otherwise all other systems are negative, nonpertinent or noncontributory (ZAHEER ROSEN APRN) Allergies: Allergies: Allergies Coded Allergies Type Severity Reaction Last Updated Verified NSAIDS (Non-Steroidal Anti-Inflamma Allergy Intermediate 05/02/21 Yes ketorolac Allergy Intermediate Itching 05/02/21 Yes levofloxacin Allergy Intermediate 05/02/21 Yes shellfish derived Allergy Intermediate Swelling 05/02/21 Yes vancomycin Allergy Intermediate 05/02/21 Yes acetaminophen Adverse Reaction Severe 05/02/21 Yes (ZAHEER ROSEN APRN) Physical Exam: PE: Constitutional: Well developed, well nourished, no acute distress, non-toxic appearance. [] HENT: Normocephalic, atraumatic Eyes: PERRL. conjunctiva normal, no discharge. [] Neck: Normal range of motion, no stridor Cardiovascular: Normal peripheral perfusion Lungs & Thorax: Normal work of breathing, no tachypnea Abdomen: Bowel sounds normal, soft, no tenderness, no masses, no pulsatile masses. [] Skin: Warm, dry, no erythema, no rash. [] Back: Normal range of motion, left-sided CVA tenderness Extremities: No tenderness, no cyanosis, no clubbing, ROM intact, no edema, neuro intact, pain with palpation of anterior aspect of bilateral knees. [] Neurologic: Alert and oriented X 3, normal motor function, normal sensory function, no focal deficits noted. [] Psychologic: Affect normal, judgement normal, mood normal. [] (ZAHEER ROSEN APRN) Current Patient Data: Vital Signs: Vital Signs Date Time Temp Pulse Resp B/P (MAP) Pulse Ox O2 Delivery O2 Flow Rate FiO2 05/04/21 18:25 98.3 101 12 132/90 97 Room Air (ZAHEER ROSEN APRN) EKG: EKG: [] (ZAHEER ROSEN APRN) Radiology/Procedures: Radiology/Procedures: PROCEDURE: KNEE BILAT 3V Exam: Bilateral knees 3 views INDICATION: Knee pain TECHNIQUE: Frontal, lateral and oblique views of the right and left knee Comparisons: None FINDINGS: Right knee: Bone mineralization is normal. No acute or healed fractures. Soft tissues are unremarkable. Joint spaces are well-maintained. Left knee: Bone mineralization is normal. No acute or healed fractures. Soft tissues are unremarkable. Joint spaces are well-maintained. IMPRESSION: No acute osseous abnormality of the left or right knee. Electronically signed by: Martha Bryson MD (05/04/2021 9:16 PM) [facility] DICTATED AND SIGNED BY: MARTHA BRYSON MD DATE: 05/04/212114 CC: PEDRO PABLO JORDAN MD; ZAHEER ROSEN APRN ~MTH0 0 PROCEDURE: HIP BILATERAL WITH PELVIS Exam: Pelvis with bilateral hips 2 views INDICATION: Knee pain TECHNIQUE: Frontal view of the pelvis with frontal and frog-leg lateral views of the bilateral hip Comparisons: None FINDINGS: Bone mineralization is normal. No acute or healed fractures. Soft tissues are unremarkable. Joint spaces are well-maintained. IMPRESSION: No acute osseous abnormality. Electronically signed by: Martha Bryson MD (05/04/2021 9:15 PM) [facility] DICTATED AND SIGNED BY: MARTHA BRYSON MD DATE: 05/04/212113 CC: PEDRO PABLO JORDAN MD; ZAHEER ROSEN APRN ~MTH0 0 PROCEDURE: CT ABDOMEN PELVIS WO CONTRAST Exam: CT of abdomen and pelvis without contrast INDICATION: Hematuria TECHNIQUE: Sequential axial images through the abdomen and pelvis obtained without IV contrast. Sagittal and coronal reformatted images were reconstructed from the axial data and reviewed. Exposure: One or more of the following in the visualized dose reduction techniques were utilized for this examination: 1. Automated exposure control 2. Adjustment of the MA and/or KV according to patient size 3. Use of iterative of reconstructive technique Comparisons: None FINDINGS: Heart size is normal. No pericardial effusion visualized lung bases are clear. Evaluation of solid organs limited to a to noncontrast technique. Diffuse hepatic steatosis. Spleen, pancreas and adrenals are unremarkable. Gallbladder surgically absent. No perinephric inflammation or hydronephrosis. No renal or ureteral calculi are identified. Bladder is partially distended and not well evaluated. Uterus is absent. No abnormal adnexal mass. Large and small bowel are unremarkable. Appendix is normal. No free intra- abdominal air or fluid. No obstruction. Abdominal aorta has a normal course and caliber. No enlarged abdominal lymph nodes are identified. No suspicious osseous lesions or acute fractures. IMPRESSION: 1. No renal or ureteral calculi. No evidence for obstructive uropathy. 2. Bladder is decompressed not well evaluated. 3. Diffuse hepatic steatosis. Electronically signed by: Martha Bryson MD (05/04/2021 8:19 PM) [facility] DICTATED AND SIGNED BY: MARTHA BRYSON MD DATE: 05/04/212015 CC: PEDRO PABLO JORDAN MD; ZAHEER ROSEN APRN ~MTH0 0 (ZAHEER ROSEN APRN) Heart Score: C/O Chest Pain: No Risk Factors: Risk Factors: DM, Current or recent (<one month) smoker, HTN, HLP, family history of CAD, obesity. Risk Scores: Score 0 - 3: 2.5% MACE over next 6 weeks - Discharge Home Score 4 - 6: 20.3% MACE over next 6 weeks - Admit for Clinical Observation Score 7 - 10: 72.7% MACE over next 6 weeks - Early Invasive Strategies (ZAHEER ROSEN APRN) Course & Med Decision Making: Course & Med Decision Making Pertinent Labs and Imaging studies reviewed. (See chart for details) Patient is a 40-year-old female being seen in the ER today for bilateral hip and knee pain. Imaging was performed is negative for any acute findings. UA was performed. Hematuria present. This was discussed with patient and the need to follow-up was also discussed. Patient is requesting pain medication, pain treated in the ER. CT scan of abdomen was negative for any acute findings. X- rays of hip and knees were negative for any acute findings. I discussed with patient all findings and diagnostic testing as well as the need to follow-up with PCP for further evaluation and treatment or return to the ER if any new or worsening symptoms. Strict return precautions were also discussed at length. Patient voiced understanding and agreement with the plan. Patient is hemody namically stable at the time of disposition. (ZAHEER ROSEN APRN) Dragon Disclaimer: Dragon Disclaimer: This electronic medical record was generated, in whole or in part, using a voice recognition dictation system. (ZAHEER ROSEN APRN) Attending Co-Sign The patient was seen and interviewed as well as examined at the bedside. The chart was reviewed. The case was discussed. Agree with the plan of care. (JOSE MELENDEZ DO) Departure Departure: Impression: Primary Impression: Hip pain Additional Impressions: Knee pain Qualified Codes: M25.561 - Pain in right knee; M25.562 - Pain in left knee Hematuria Qualified Codes: R31.9 - Hematuria, unspecified Disposition: 01 HOME / SELF CARE / HOMELESS Condition: GOOD Referrals: PEDRO PABLO JORDAN MD (PCP) Patient Instructions: Hematuria, Adult, Knee Pain Additional Instructions: You were seen in the ER today for bilateral hip and knee pain. The x-rays of your hip and knees were negative for any acute findings. You can apply ice for your knee pain and take your medications that you have at home for your pain. Your urine sample was positive for blood. As we discussed, you need to follow- up with your primary care provider and you may need a urology referral for the blood in your urine. We performed a CT scan of her abdomen it was negative for any acute findings. You were treated in the ER for your pain. Please follow-up with your primary care provider tomorrow regarding your ER visit. If you develop worsening of your pain, inability to walk, increased blood in your urine, fevers, nausea, vomiting, abdominal pain please return to the ER immediately. EMERGENCY DEPARTMENT GENERAL DISCHARGE INSTRUCTIONS Thank you for coming to [facility] (ED) today and trusting us with you care. We trust that you had a positivie experience in our Emergency Department. If you wish to speak to the department management, you may call the director at [phone]. YOUR FOLLOW UP INSTRUCTIONS ARE FOLLOWS: 1. Do you have a private Doctor? If you do not have a private doctor, please ask for a resource list of physicians or clinics that may be able to assist you with follow up care. 2. The Emergency Physician has interpreted your x-rays. The X-Ray specialist will also review them. If there is a change in the findings, you will be notified in 48 h ours when at all possible. 3. A lab test or culture has been done, your results will be reviewed and you will be notified if you need a change in treatment. ADDITIONAL INSTRUCTIONS AND INFORMATION: 1. Your care today has been supervised by a physician who is specially trained in emergency care. Many problems require more than one evaluation for a complete diagnosis and treatment. We recommend that you schedule your follow up appointment as recommended to ensure complete treatment of you illness or injury. If you are unable to obtain follow up care and continue to have a problem, or if your condition worsens, we recommend that you return to the ED. 2. We are not able to safely determine your condition over the phone nor are we able to give sound medical advice over the phone. For these safety reasons, if you call for medical advice we will ask you to come to the ED for further evaluation. 3. If you have any questions regarding these discharge instructions please call the ED at [phone]. SAFETY INFORMATION: In the interest of safety, wellness, and injury prevention; we encourage you to wear your sealbelt, if you smoke; quite smoking, and we encourage family to use a protective helmet for bicycling and other sporting events that present an increased risk for head injury. IF YOUR SYMPTOMS WORSEN OR NEW SYMPTOMS DEVELOP, OR YOU HAVE CONCERNS ABOUT YOUR CONDITION; OR IF YOUR CONDITION WORSENS WHILE YOU ARE WAITING FOR YOUR FOLLOW UP APPOINTMENT; EITHER CONTACT YOUR PRIMARY CARE DOCTOR, THE PHYSICIAN WHOSE NAME AND NUMBER YOU WERE GIVEN, OR RETURN TO THE ED IMMEDIATELY. ZAHEER ROSEN APRN May 04, 2021 19:20 JOSE MELENDEZ DO May 07, 2021 06:13
[2021-05-04 19:25] LABS: BACTERIA,URINE 0 /HPF (0-FEW); BILIRUBIN,URINE NEG (NEG); CLARITY,URINE CLOUDY; COLOR,URINE YELLOW; GLUCOSE,URINE >=1000 mg/dL (NEG); NITRITE,URINE NEG (NEG); RBC,URINE >40 /HPF (0-2); SQUAMOUS EPITHELIAL CELL,UR MANY /LPF; UROBILINOGEN,URINE 0.2 mg/dL (0.2 mg/dL); WBC,URINE 0 /HPF (0-4)
--- NOTE | 2021-05-04 20:21 | RAD ---
Exam: CT of abdomen and pelvis without contrast INDICATION: Hematuria TECHNIQUE: Sequential axial images through the abdomen and pelvis obtained without IV contrast. Sagit angeline and coronal reformatted images were reconstructed from the axial data and reviewed. Exposure: One or more of the following in the visualized dose reduction techniques were utilized for this examination: 1. Automated exposure control 2. Adjustment of the MA and/or KV according to patient size 3. Use of iterative of reconstructive technique Comparisons: None FINDINGS: Heart size is normal. No pericardial effusion visualized lung bases are clear. Evaluation of solid organs limited to a to noncontrast technique. Diffuse hepatic steatosis. Spleen, pancreas and adrenals are unremarkable. Gallbladder surgically abs ent. No perinephric inflammation or hydronephrosis. No renal or ureteral calculi are identified. Bladder is partially distended and not well evaluated. Uterus is absent. No abnormal adnexal mass. Large and small bowel are unremarkable. Appendix is normal. No free intra-abdominal air or fluid. No obstruction. Abdominal aorta has a normal course and caliber. No enlarged abdominal lymph nodes are identified. No suspicious osseous lesions or acute fractures. IMPRESSION: 1. No renal or ureteral calculi. No evidence for obstructive uropathy. 2. Bladder is decompressed not well evaluated. 3. Diffuse hepatic steatosis. Electronically signed by: Martha Ulloa MD (05/04/2021 8:19 PM) [facility]
--- NOTE | 2021-05-04 21:17 | RAD ---
Exam: Pelvis with bilateral hips 2 views INDICATION: Knee pain TECHNIQUE: Frontal view of the pelvis with frontal and frog-leg lateral views of the bilateral hip Comparisons: None FINDINGS: Bone mineralization is normal. No acute or healed fractures. Soft tissues are unremarkable. Joint spa buster are well-maintained. IMPRESSION: No acute osseous abnormality. Electronically signed by: Martha Ulloa MD (05/04/2021 9:15 PM) [facility]
--- NOTE | 2021-05-04 21:18 | RAD ---
Exam: Bilateral knees 3 views INDICATION: Knee pain TECHNIQUE: Frontal, lateral and oblique views of the right and left knee Comparisons: None FINDINGS: Right knee: Bone mineralization is normal. No acute or healed fractures. Soft tissues are unremarkable. Joint spa buster are well-maintained. Left knee: Bone mineralization is normal. No acute or healed fractures. Soft tissues are unremarkable. Joint spa buster are well-maintained. IMPRESSION: No acute osseous abnormality of the left or right knee. Electronically signed by: Martha Ulloa MD (05/04/2021 9:16 PM) [facility]
[2021-05-04] MEDS ORDERED: oxyCODONE IR 5 MG TABLET PO SCH (21:30)
[2021-05-04 21:40] VITALS: BP 101/54
== END 2021-05-04 21:40 | disposition home or self-care (01) ==
LOC: ER 17:51
DX: M25.551 Pain in right hip (principal); M25.552 Pain in left hip; M25.561 Pain in right knee; M25.562 Pain in left knee; R31.9 Hematuria, unspecified; F41.9 Anxiety disorder, unspecified; M19.90 Unspecified osteoarthritis, unspecified site; F31.9 Bipolar disorder, unspecified; E11.9 Type 2 diabetes mellitus without complications; M79.7 Fibromyalgia; K21.9 Gastro-esophageal reflux disease without esophagitis; E78.00 Pure hypercholesterolemia, unspecified; I10 Essential (primary) hypertension; F17.210 Nicotine dependence, cigarettes, uncomplicated; Z87.440 Personal history of urinary (tract) infections; Z87.442 Personal history of urinary calculi; Z88.6 Allergy status to analgesic agent; Z88.1 Allergy status to other antibiotic agents; Z91.013 Allergy to seafood; Z88.8 Allergy status to other drugs, medicaments and biological substances
CPT/HCPCS: 73521; 73562; 74176; 81001; 99285

== ENCOUNTER 2021-05-09 22:25 | Emergency (ER) | payer BC ==
[~2021-05-09] VITALS: Ht 165.1 cm; Wt 85.0 kg
[~2021-05-09 22:25] MED LIST changes: -QUET50TA PO; +QUET50TA3 PO
[2021-05-09] MEDS ORDERED: INSULIN REGULAR 100 UNIT/ML 3ML VIAL. IV ONE (23:30)
[2021-05-09] MEDS ORDERED: IV NORMAL SALINE 1,000ML 1,000 ML IV ONE (23:30)
--- NOTE | 2021-05-09 23:59 | PHYS DOC ---
Past History Past Medical History: Anxiety, Arthritis, Bipolar, Depression, Diverticulitis, Diabetes, Fibromyalgia, GERD, High Cholesterol, Hypertension, Kidney Stones, UTI, Other Additional Past Medical Histor: RODRIGUEZ Past Surgical History: Cholecystectomy, Hysterectomy, Tonsillectomy, Other Additional Past Surgical Histo: hernia, ankle Smoking: Cigarettes, Less than 1pk/day Alcohol Use: None Drug Use: None General Adult EDM: Chief Complaint: HYPERGLYCEMIA HPI: HPI: 40-year-old female presents with hyperglycemia. She is out of her insulin pump supplies which she has been using subcu insulin. She has normally been running about 300 but today is over 500 so she came to the emergency room. She has had 2 episodes of vomiting and some generalized abdominal pain below her umbilicus. She denies fever or chills. She has no other complaints at this time. Review of Systems: Review of Systems: Constitutional: Denies fever or chills Eyes: Denies change in visual acuity HENT: Denies nasal congestion or sore throat Respiratory: Denies cough or shortness of breath Cardiovascular: Denies chest pain or edema GI: Suprapubic abdominal pain, vomiting. : Denies dysuria Musculoskeletal: Denies back pain or joint pain Integument: Denies rash Neurologic: Denies headache, focal weakness or sensory changes Endocrine: Denies polyuria or polydipsia Lymphatic: Denies swollen glands Psychiatric: Denies depression or anxiety Current Medications: Current Meds: Current Medications Medications (Trade) Dose Ordered Sig/Yoko Start Time Stop Time Status Last Admin Dose Admin Insulin Human Regular (HumuLIN R VIAL) 10 unit 1X ONCE 05/09/21 23:30 05/09/21 23:31 DC 05/09/21 23:46 10 UNIT Sodium Chloride 1,000 ml @ 1,000 mls/hr 1X ONCE 05/09/21 23:30 05/10/21 00:29 05/09/21 23:22 1,000 MLS/HR Allergies: Allergies: Allergies Coded Allergies Type Severity Reaction Last Updated Verified NSAIDS (Non-Steroidal Anti-Inflamma Allergy Intermediate 05/02/21 Yes ketorolac Allergy Intermediate Itching 05/02/21 Yes levofloxacin Allergy Intermediate 05/02/21 Yes shellfish derived Allergy Intermediate Swelling 05/02/21 Yes vancomycin Allergy Intermediate 05/02/21 Yes acetaminophen Adverse Reaction Severe 05/02/21 Yes Physical Exam: PE: Constitutional: Well developed, well nourished, obese, no acute distress, non- toxic appearance. [] HENT: Normocephalic, atraumatic, bilateral external ears normal, oropharynx moist, no oral exudates, nose normal. [] Eyes: PERRLA, EOMI, conjunctiva normal, no discharge. [] Neck: Normal range of motion, no tenderness, supple, no stridor. [] Cardiovascular:Heart rate regular rhythm, no murmur [] Lungs & Thorax: Bilateral breath sounds clear to auscultation [] Abdomen: Bowel sounds normal, soft, mild suprapubic tenderness, no masses, no pulsatile masses. [] Skin: Warm, dry, no erythema, no rash. [] Back: No tenderness, no CVA tenderness. [] Extremities: No tenderness, no cyanosis, no clubbing, ROM intact, no edema. [] Neurologic: Alert and oriented X 3, normal motor function, normal sensory function, no focal deficits noted. [] Psychologic: Affect normal, judgement normal, mood normal. [] Current Patient Data: Labs: Laboratory Tests Test 05/09/21 22:49 Glucose (Fingerstick) 537 mg/dL (70-99) *H Vital Signs: Vital Signs Date Time Temp Pulse Resp B/P (MAP) Pulse Ox O2 Delivery O2 Flow Rate FiO2 05/09/21 22:56 98.3 101 16 124/85 96 Room Air EKG: EKG: [] Radiology/Procedures: Radiology/Procedures: [] Heart Score: C/O Chest Pain: N/A Risk Factors: Risk Factors: DM, Current or recent (<one month) smoker, HTN, HLP, family history of CAD, obesity. Risk Scores: Score 0 - 3: 2.5% MACE over next 6 weeks - Discharge Home Score 4 - 6: 20.3% MACE over next 6 weeks - Admit for Clinical Observation Score 7 - 10: 72.7% MACE over next 6 weeks - Early Invasive Strategies Course & Med Decision Making: Course & Med Decision Making Pertinent Labs and Imaging studies reviewed. (See chart for details) The patient's blood sugar is over 500. Be given 10 units of regular insulin and a liter of normal saline. Her anion gap is normal. Her urinalysis is negative for infection. The patient has complained about nondescript abdominal pain. She has been given 2 more doses of pain medication. Her repeat blood sugar is in the 350s. I will give an additional 10 units of insulin. She is stable for discharge at this time. [] Katerine Disclaimer: Katerine Disclaimer: This electronic medical record was generated, in whole or in part, using a voice recognition dictation system. Departure Departure: Impression: Primary Impression: Hyperglycemia Disposition: HOME / SELF CARE / HOMELESS Condition: IMPROVED Referrals: PEDRO PABLO JORDAN MD (PCP) Patient Instructions: Hyperglycemia, [id number] JOSE MELENDEZ DO May 09, 2021 23:59
[2021-05-10] LABS: BASO # 0.1 x10^3/uL (0.0-0.2); BASO % 1 % (0-3); EOS # 0.1 x10^3/uL (0.0-0.7); EOS % 1 % (0-3); HEMATOCRIT 41.7 % (36.0-47.0); HEMOGLOBIN 14.2 g/dL (12.0-15.5); LYMPH # 2.6 x10^3/uL (1.0-4.8); LYMPH % 27 % (24-48); MEAN CORPUSCULAR HEMOGLOBIN 31 pg (25-35); MEAN CORPUSCULAR HGB CONC 34 g/dL (31-37); MEAN CORPUSCULAR VOLUME 90 fL (79-100); MONO # 0.6 x10^3/uL (0.0-1.1); MONO % 6 % (0-9); NEUT # 6.5 x10^3uL (1.8-7.7); NEUT % 65 % (31-73); PLATELET COUNT 202 x10^3/uL (140-400); RED BLOOD COUNT 4.65 x10^6/uL (3.50-5.40); RED CELL DISTRIBUTION WIDTH 16.6 % (11.5-14.5); WHITE BLOOD COUNT 9.9 x10^3/uL (4.0-11.0)
[2021-05-10 00:10] LABS: ALBUMIN 3.6 g/dL (3.4-5.0); ALBUMIN/GLOBULIN RATIO 0.9 (1.0-1.7); CALCIUM 9.3 mg/dL (8.5-10.1); CREATININE 0.9 mg/dL (0.6-1.0); GFR 69.3; POTASSIUM 3.7 mmol/L (3.5-5.1); TOTAL BILIRUBIN 0.4 mg/dL (0.2-1.0); TOTAL PROTEIN 7.4 g/dL (6.4-8.2)
[2021-05-10] MEDS ORDERED: ONDANSETRON PF 4 MG/2 ML VIAL. IVP ONE (00:30)
[2021-05-10] MEDS ORDERED: MORPHINE SULFATE 4 MG/ML DISP.SYRIN. IV ONE (00:30)
[2021-05-10 00:34] LABS: BILIRUBIN,URINE NEG (NEG); CLARITY,URINE CLEAR; COLOR,URINE YELLOW; GLUCOSE,URINE >=1000 mg/dL (NEG)
[2021-05-10 00:35] LABS: BACTERIA,URINE 0 /HPF (0-FEW); NITRITE,URINE NEG (NEG); RBC,URINE >40 /HPF (0-2); SQUAMOUS EPITHELIAL CELL,UR FEW /LPF; UROBILINOGEN,URINE 0.2 mg/dL (0.2 mg/dL); WBC,URINE OCC /HPF (0-4)
[2021-05-10] MEDS ORDERED: HYDROmorphone PF 1 MG/ML DISP.SYRIN IVP ONE (02:00)
[2021-05-10] MEDS ORDERED: INSULIN REGULAR 100 UNIT/ML 3ML VIAL. IV ONE (02:00)
[2021-05-10 02:05] VITALS: BP 104/64
== END 2021-05-10 02:06 | disposition home or self-care (01) ==
LOC: ER 22:25
DX: E11.65 Type 2 diabetes mellitus with hyperglycemia (principal); R11.10 Vomiting, unspecified; M19.90 Unspecified osteoarthritis, unspecified site; F41.9 Anxiety disorder, unspecified; F31.9 Bipolar disorder, unspecified; M79.7 Fibromyalgia; K21.9 Gastro-esophageal reflux disease without esophagitis; E78.00 Pure hypercholesterolemia, unspecified; I10 Essential (primary) hypertension; F17.210 Nicotine dependence, cigarettes, uncomplicated; E66.9 Obesity, unspecified; Z87.440 Personal history of urinary (tract) infections; Z87.442 Personal history of urinary calculi; Z68.31 Body mass index [BMI] 31.0-31.9, adult; Z90.49 Acquired absence of other specified parts of digestive tract; Z90.710 Acquired absence of both cervix and uterus; Z88.6 Allergy status to analgesic agent; Z88.1 Allergy status to other antibiotic agents; Z91.013 Allergy to seafood; Z88.8 Allergy status to other drugs, medicaments and biological substances
CPT/HCPCS: 36415; 80053; 81001; 82947; 85025; 96361; 96374; 96375; 96376; 99284; J1170; J1815; J2270; J2405; J7030

== ENCOUNTER 2021-05-11 05:40 | Emergency (ER) | payer BC ==
[~2021-05-11] VITALS: Ht 165.1 cm; Wt 85.0 kg
--- NOTE | 2021-05-11 06:56 | PHYS DOC ---
Past History Past Medical History: Anxiety, Arthritis, Bipolar, Depression, Diverticulitis, Diabetes, Fibromyalgia, GERD, High Cholesterol, Hypertension, Kidney Stones, UTI, Other Additional Past Medical Histor: RODRIGUEZ Past Surgical History: Cholecystectomy, Hysterectomy, Tonsillectomy, Other Additional Past Surgical Histo: hernia, ankle Smoking: Cigarettes, Less than 1pk/day Alcohol Use: None Drug Use: None General Adult EDM: Chief Complaint: HYPERGLYCEMIA HPI: HPI: Patient is a female coming in for hyperglycemia. Patient is an insulin- dependent diabetic who is normally on insulin pump. Patient states that her supplies run out of her insulin pump supplies, but they were supposed to be in today. Patient states that she was also out of her long-acting insulin but has had it back and has been taking 33 units of Lantus twice daily. I personally saw patient at [place] for the same complaints 4 days ago. Patient has been going between this hospital and [place] for the same complaint almost daily. Patient is lying comfortably although complaining of abdominal pain. Received call from [facility] pharmacy after reviewing medication orders. Patient left AMA from [facility] at [phone], per pharmacy chart review it seems that it was after not receiving narcotic pain medication Review of Systems: Review of Systems: All other systems within normal limits except for as noted in the HPI Current Medications: Current Meds: Current Medications Medications (Trade) Dose Ordered Sig/Yoko Start Time Stop Time Status Last Admin Dose Admin Sodium Chloride 1,000 ml @ 1,000 mls/hr 1X ONCE 05/11/21 07:00 05/11/21 07:59 Allergies: Allergies: Allergies Coded Allergies Type Severity Reaction Last Updated Verified NSAIDS (Non-Steroidal Anti-Inflamma Allergy Intermediate 05/02/21 Yes ketorolac Allergy Intermediate Itching 05/02/21 Yes levofloxacin Allergy Intermediate 05/02/21 Yes shellfish derived Allergy Intermediate Swelling 05/02/21 Yes vancomycin Allergy Intermediate 05/02/21 Yes acetaminophen Adverse Reaction Severe 05/02/21 Yes Physical Exam: PE: Constitutional: Well developed, well nourished, no acute distress, non-toxic appearance. [] HENT: Normocephalic, atraumatic, bilateral external ears normal, nose normal. [] Eyes: PERRLA, conjunctiva normal, no discharge. [] Neck: No rigidity, supple, no stridor. [] Cardiovascular: Regular rate and rhythm, brisk cap refill [] Lungs & Thorax: Non labored symmetric respirations, no tachypnea or respiratory distress [] Abdomen: Soft, nondistended. Skin: Warm, dry, no erythema, no rash. [] Back: Unremarkable Extremities: No deformities, range of motion grossly intact, no lower extremity edema [] Neurologic: Alert and oriented X 3, no focal deficits noted. [] Psychologic: Affect normal, judgement normal, mood normal. [] Current Patient Data: Labs: Laboratory Tests Test 05/11/21 05:48 Glucose (Fingerstick) 448 mg/dL (70-99) H EKG: EKG: [] Radiology/Procedures: Radiology/Procedures: [] Heart Score: C/O Chest Pain: No Risk Factors: Risk Factors: DM, Current or recent (<one month) smoker, HTN, HLP, family history of CAD, obesity. Risk Scores: Score 0 - 3: 2.5% MACE over next 6 weeks - Discharge Home Score 4 - 6: 20.3% MACE over next 6 weeks - Admit for Clinical Observation Score 7 - 10: 72.7% MACE over next 6 weeks - Early Invasive Strategies Course & Med Decision Making: Course & Med Decision Making Pertinent Labs and Imaging studies reviewed. (See chart for details) [] Dragon Disclaimer: Dragon Disclaimer: This electronic medical record was generated, in whole or in part, using a voice recognition dictation system. Departure Departure: Impression: Primary Impression: Hyperglycemia Disposition: HOME / SELF CARE / HOMELESS Condition: STABLE Referrals: PEDRO PABLO JORDAN MD (PCP) Patient Instructions: Hyperglycemia MELVA HOLLOWAY MD May 11, 2021 06:56
[2021-05-11] MEDS ORDERED: IV NORMAL SALINE 1,000ML 1,000 ML IV ONE (07:00)
[2021-05-11] MEDS ORDERED: ONDANSETRON PF 4 MG/2 ML VIAL. IVP ONE (07:15)
[2021-05-11] MEDS ORDERED: DICYCLOMINE 20 MG/2 ML VIAL. IM ONE (07:15)
[2021-05-11 07:16] LABS: CALCIUM 8.5 mg/dL (8.5-10.1); CREATININE 0.9 mg/dL (0.6-1.0); GFR 69.3; POTASSIUM 4.1 mmol/L (3.5-5.1)
[2021-05-11 07:37] LABS: BILIRUBIN,URINE NEG (NEG); CLARITY,URINE CLEAR; COLOR,URINE YELLOW; GLUCOSE,URINE >=1000 mg/dL (NEG); NITRITE,URINE NEG (NEG); RBC,URINE RARE /HPF (0-2); UROBILINOGEN,URINE 0.2 mg/dL (0.2 mg/dL)
[2021-05-11 07:38] LABS: BACTERIA,URINE 0 /HPF (0-FEW); SQUAMOUS EPITHELIAL CELL,UR FEW /LPF
[2021-05-11] MEDS ORDERED: INSULIN REGULAR 100 UNIT/ML 3ML VIAL. IV ONE (07:45)
[2021-05-11 08:13] VITALS: BP 102/51
== END 2021-05-11 08:35 | disposition home or self-care (01) ==
LOC: ER 05:40
DX: E11.65 Type 2 diabetes mellitus with hyperglycemia (principal); F41.9 Anxiety disorder, unspecified; M19.90 Unspecified osteoarthritis, unspecified site; F31.9 Bipolar disorder, unspecified; M79.7 Fibromyalgia; K21.9 Gastro-esophageal reflux disease without esophagitis; E78.00 Pure hypercholesterolemia, unspecified; I10 Essential (primary) hypertension; F17.210 Nicotine dependence, cigarettes, uncomplicated; Z96.41 Presence of insulin pump (external) (internal); Z87.440 Personal history of urinary (tract) infections; Z87.442 Personal history of urinary calculi; Z90.49 Acquired absence of other specified parts of digestive tract; Z90.710 Acquired absence of both cervix and uterus; Z88.6 Allergy status to analgesic agent; Z88.1 Allergy status to other antibiotic agents; Z88.8 Allergy status to other drugs, medicaments and biological substances
CPT/HCPCS: 36415; 80048; 81001; 82947; 87086; 96361; 96374; 96375; 99284; J1815; J2405; J7030

== ENCOUNTER 2021-05-19 23:14 | Emergency (ER) | payer BC ==
[~2021-05-19] VITALS: Ht 165.1 cm; Wt 85.0 kg
[2021-05-19] MEDS: IV NORMAL SALINE 1,000ML 1,000 ML IV ONE (23:51)
[2021-05-19] MEDS: diphenhydrAMINE 50 MG/ML VIAL IVP ONE (23:52)
[2021-05-19] MEDS: ONDANSETRON PF 4 MG/2 ML VIAL. IVP ONE (23:52)
[2021-05-19 23:54] LABS: BASO % 0 % (0-3); EOS # 0.1 x10^3/uL (0.0-0.7); EOS % 1 % (0-3); HEMOGLOBIN 14.1 g/dL (12.0-15.5); LYMPH % 25 % (24-48); MEAN CORPUSCULAR HEMOGLOBIN 30 pg (25-35); MEAN CORPUSCULAR HGB CONC 34 g/dL (31-37); MEAN CORPUSCULAR VOLUME 89 fL (79-100); MONO # 0.9 x10^3/uL (0.0-1.1); MONO % 7 % (0-9); NEUT % 66 % (31-73); PLATELET COUNT 211 x10^3/uL (140-400); RED BLOOD COUNT 4.72 x10^6/uL (3.50-5.40); RED CELL DISTRIBUTION WIDTH 16.7 % (11.5-14.5); WHITE BLOOD COUNT 12.1 x10^3/uL (4.0-11.0)
[2021-05-19 23:59] LABS: CALCIUM 9.1 mg/dL (8.5-10.1); CREATININE 0.6 mg/dL (0.6-1.0); GFR 110.7
[2021-05-19 23:59] LABS: BILIRUBIN,URINE NEG (NEG); CLARITY,URINE CLEAR; COLOR,URINE YELLOW; GLUCOSE,URINE >=1000 mg/dL (NEG); NITRITE,URINE NEG (NEG); RBC,URINE >40 /HPF (0-2); UROBILINOGEN,URINE 0.2 mg/dL (0.2 mg/dL)
[2021-05-20] LABS: BACTERIA,URINE FEW /HPF (0-FEW); SQUAMOUS EPITHELIAL CELL,UR MOD /LPF
[2021-05-20 00:04] LABS: ALBUMIN 3.6 g/dL (3.4-5.0); ALBUMIN/GLOBULIN RATIO 1.1 (1.0-1.7); TOTAL BILIRUBIN 0.5 mg/dL (0.2-1.0); TOTAL PROTEIN 6.9 g/dL (6.4-8.2)
[2021-05-20 00:08] LABS: POTASSIUM 4.4 mmol/L (3.5-5.1)
--- NOTE | 2021-05-20 00:35 | PHYS DOC ---
Past History Past Medical History: Anxiety, Arthritis, Bipolar, Depression, Diverticulitis, Diabetes, Fibromyalgia, GERD, High Cholesterol, Hypertension, Kidney Stones, UTI, Other Additional Past Medical Histor: RODRIGUEZ Past Surgical History: Cholecystectomy, Hysterectomy, Tonsillectomy, Other Additional Past Surgical Histo: hernia, ankle Smoking: Cigarettes, Less than 1pk/day Alcohol Use: None Drug Use: None General Adult EDM: Chief Complaint: GI PROBLEM HPI: HPI: 40-year-old female presents with left flank pain. This pain started earlier today. Patient came into the emergency room because she is concerned that she could have a urinary tract infection. Last time she had pain like this she had a tract infection and possible pyelonephritis. She has not had a fever or c hills at home. The patient is a frequent guests to this emergency room and [facility]. Her blood sugar is elevated, but better than usual since making some adjustments her insulin pump. She is seeing the [facility] for other complex issues. Review of Systems: Review of Systems: Constitutional: Denies fever or chills Eyes: Denies change in visual acuity HENT: Denies nasal congestion or sore throat Respiratory: Denies cough or shortness of breath Cardiovascular: Denies chest pain or edema GI: Denies abdominal pain, nausea, vomiting, bloody stools or diarrhea : Increased urinary frequency Musculoskeletal: Left flank pain Integument: Denies rash Neurologic: Denies headache, focal weakness or sensory changes Endocrine: Denies polyuria or polydipsia Lymphatic: Denies swollen glands Psychiatric: Denies depression or anxiety Current Medications: Current Meds: Current Medications Medications (Trade) Dose Ordered Sig/Yoko Start Time Stop Time Status Last Admin Dose Admin Diphenhydramine HCl (Benadryl) 50 mg 1X ONCE 05/19/21 23:30 05/19/21 23:31 DC 05/19/21 23:52 50 MG Ondansetron HCl (Zofran) 4 mg 1X ONCE 05/19/21 23:30 05/19/21 23:31 DC 05/19/21 23:52 4 MG Sodium Chloride 1,000 ml @ 1,000 mls/hr 1X ONCE 05/19/21 23:30 05/20/21 00:29 DC 05/19/21 23:51 1,000 MLS/HR Allergies: Allergies: Allergies Coded Allergies Type Severity Reaction Last Updated Verified NSAIDS (Non-Steroidal Anti-Inflamma Allergy Intermediate 05/02/21 Yes ketorolac Allergy Intermediate Itching 05/02/21 Yes levofloxacin Allergy Intermediate 05/02/21 Yes shellfish derived Allergy Intermediate Swelling 05/02/21 Yes vancomycin Allergy Intermediate 05/02/21 Yes acetaminophen Adverse Reaction Severe 05/02/21 Yes Physical Exam: PE: Constitutional: Well developed, well nourished, obese, no acute distress, non- toxic appearance. [] HENT: Normocephalic, atraumatic, bilateral external ears normal, oropharynx moist, no oral exudates, nose normal. [] Eyes: PERRLA, EOMI, conjunctiva normal, no discharge. [] Neck: Normal range of motion, no tenderness, supple, no stridor. [] Cardiovascular: Heart rate regular rhythm, no murmur [] Lungs & Thorax: Bilateral breath sounds clear to auscultation [] Abdomen: Bowel sounds normal, soft, no tenderness, no masses, no pulsatile masses. [] Skin: Warm, dry, no erythema, no rash. [] Back: No tenderness, no CVA tenderness. [] Extremities: No tenderness, no cyanosis, no clubbing, ROM intact, no edema. [] Neurologic: Alert and oriented X 3, normal motor function, normal sensory function, no focal deficits noted. [] Psychologic: Affect normal, judgement normal, mood normal. [] Current Patient Data: Labs: Laboratory Tests Test 05/19/21 23:30 05/19/21 23:35 05/19/21 23:36 Urine Collection Type Unknown Urine Color Yellow Urine Clarity Clear Urine pH 5.5 Urine Specific [place] 1.020 Urine Protein Neg (NEG-TRACE) Urine Glucose (UA) >=1000 mg/dL (NEG) Urine Ketones (Stick) Trace mg/dL (NEG) Urine Blood Large (NEG) Urine Nitrite Neg (NEG) Urine Bilirubin Neg (NEG) Urine Urobilinogen Dipstick 0.2 mg/dL (0.2 mg/dL) Urine Leukocyte Esterase Neg (NEG) Urine RBC >40 /HPF (0-2) Urine WBC 1-4 /HPF (0-4) Urine Squamous Epithelial Cells Mod /LPF Urine Bacteria Few /HPF (0-FEW) White Blood Count 12.1 x10^3/uL (4.0-11.0) H Red Blood Count 4.72 x10^6/uL (3.50-5.40) Hemoglobin 14.1 g/dL (12.0-15.5) Hematocrit 42.0 % (36.0-47.0) Mean Corpuscular Volume 89 fL (79-100) Mean Corpuscular Hemoglobin 30 pg (25-35) Mean Corpuscular Hemoglobin Concent 34 g/dL (31-37) Red Cell Distribution Width 16.7 % (11.5-14.5) H Platelet Count 211 x10^3/uL (140-400) Neutrophils (%) (Auto) 66 % (31-73) Lymphocytes (%) (Auto) 25 % (24-48) Monocytes (%) (Auto) 7 % (0-9) Eosinophils (%) (Auto) 1 % (0-3) Basophils (%) (Auto) 0 % (0-3) Neutrophils # (Auto) 8.0 x10^3uL (1.8-7.7) H Lymphocytes # (Auto) 3.0 x10^3/uL (1.0-4.8) Monocytes # (Auto) 0.9 x10^3/uL (0.0-1.1) Eosinophils # (Auto) 0.1 x10^3/uL (0.0-0.7) Basophils # (Auto) 0.0 x10^3/uL (0.0-0.2) Sodium Level 137 mmol/L (136-145) Potassium Level 4.4 mmol/L (3.5-5.1) Chloride Level 101 mmol/L (98-107) Carbon Dioxide Level 27 mmol/L (21-32) Anion Gap 9 (6-14) Blood Urea Nitrogen 12 mg/dL (7-20) Creatinine 0.6 mg/dL (0.6-1.0) Estimated GFR (Cockcroft-Gault) 110.7 BUN/Creatinine Ratio 20 (6-20) Glucose Level 309 mg/dL (70-99) H Calcium Level 9.1 mg/dL (8.5-10.1) Total Bilirubin 0.5 mg/dL (0.2-1.0) Aspartate Amino Transferase (AST) 71 U/L (15-37) H Alanine Aminotransferase (ALT) 100 U/L (14-59) H Alkaline Phosphatase 126 U/L (46-116) H Total Protein 6.9 g/dL (6.4-8.2) Albumin 3.6 g/dL (3.4-5.0) Albumin/Globulin Ratio 1.1 (1.0-1.7) Glucose (Fingerstick) 310 mg/dL (70-99) H Vital Signs: Vital Signs Date Time Temp Pulse Resp B/P (MAP) Pulse Ox O2 Delivery O2 Flow Rate FiO2 05/19/21 23:20 99.1 98 18 124/75 97 Room Air EKG: EKG: [] Radiology/Procedures: Radiology/Procedures: [] Heart Score: C/O Chest Pain: N/A Risk Factors: Risk Factors: DM, Current or recent (<one month) smoker, HTN, HLP, family history of CAD, obesity. Risk Scores: Score 0 - 3: 2.5% MACE over next 6 weeks - Discharge Home Score 4 - 6: 20.3% MACE over next 6 weeks - Admit for Clinical Observation Score 7 - 10: 72.7% MACE over next 6 weeks - Early Invasive Strategies Course & Med Decision Making: Course & Med Decision Making Pertinent Labs and Imaging studies reviewed. (See chart for details) The patient's labs are unremarkable except for a blood sugar of 300 with a normal anion gap.. Urinalysis is negative for infection. She does have blood management follow-up with primary care physician and to make sure this clears up. I have given her 1 dose of pain medication. She is stable for discharge at this time. [] Dragon Disclaimer: Dragon Disclaimer: This electronic medical record was generated, in whole or in part, using a voice recognition dictation system. Departure Departure: Impression: Primary Impression: Left flank pain Disposition: HOME / SELF CARE / HOMELESS Condition: STABLE Referrals: PEDRO PABLO JORDAN MD (PCP) Patient Instructions: Flank Pain, [id number] JOSE MELENDEZ DO May 20, 2021 00:35
[2021-05-20] MEDS: MORPHINE SULFATE 4 MG/ML DISP.SYRIN. IV ONE (00:40)
[2021-05-20 00:55] VITALS: BP 129/76
== END 2021-05-20 00:55 | disposition home or self-care (01) ==
LOC: ER 23:14
DX: R10.9 Unspecified abdominal pain (principal); R35.0 Frequency of micturition; F41.9 Anxiety disorder, unspecified; M19.90 Unspecified osteoarthritis, unspecified site; F31.9 Bipolar disorder, unspecified; E11.9 Type 2 diabetes mellitus without complications; M79.7 Fibromyalgia; K21.9 Gastro-esophageal reflux disease without esophagitis; E78.00 Pure hypercholesterolemia, unspecified; I10 Essential (primary) hypertension; F17.210 Nicotine dependence, cigarettes, uncomplicated; Z87.440 Personal history of urinary (tract) infections; Z87.442 Personal history of urinary calculi; Z90.49 Acquired absence of other specified parts of digestive tract; Z90.710 Acquired absence of both cervix and uterus; Z88.1 Allergy status to other antibiotic agents; Z88.8 Allergy status to other drugs, medicaments and biological substances; Z88.6 Allergy status to analgesic agent
CPT/HCPCS: 36415; 80053; 81001; 82947; 85025; 96361; 96374; 96375; 99284; J1200; J2270; J2405; J7030

== ENCOUNTER 2021-05-22 01:02 | Inpatient (IN) | payer BC ==
[~2021-05-22] VITALS: Ht 165.1 cm; Wt 91.3 kg
--- NOTE | 2021-05-22 01:11 | PHYS DOC ---
Past History Past Medical History: Anxiety, Arthritis, Bipolar, Depression, Diverticulitis, Diabetes, Fibromyalgia, GERD, High Cholesterol, Hypertension, Kidney Stones, UTI, Other Additional Past Medical Histor: RODRIGUEZ Past Surgical History: Cholecystectomy, Hysterectomy, Tonsillectomy, Other Additional Past Surgical Histo: hernia, ankle Smoking: Cigarettes, Less than 1pk/day Alcohol Use: None Drug Use: None General Adult HPI: HPI: ".. My blood sugar .. is up.... "..." Patient is a 40 year old female who presents with above hx and complaints hyperglycemia. Patient has multiple ED evaluations for elevated blood sugars. Does have a history of noncompliance. And dehydration. Does have significant history of RODRIGUEZ, diabetes, episodes of dehydration, tonsillitis, sleep apnea, implanted sleep apnea device, CPAP, esophagitis, esophageal varices, diverticulitis, pancreatitis, obesity, GERD, uterine prolapse, cervical cancer, kidney stones, chronic pain, liver disease, depression, suicide attempt 1220, bipolar depression, tobacco use, cervical cancer, constipation, chronic pain and elevated lipids. History of [id number] tobacco use history. Patient has had numerous surgeries including hysterectomy, breast reduction, tonsillectomy, hysterectomy, cholecystectomy, implanted stimulator for sleep apnea,. Patient presents tonight with high blood sugar. Patient has multiple follow-up with as well as [facility]. Review of Systems: Review of Systems: Constitutional: Denies fever or chills Eyes: Denies change in visual acuity HENT: Denies nasal congestion or sore throat Respiratory: Denies cough or shortness of breath Cardiovascular: Denies chest pain or edema GI: Denies abdominal pain, nausea, vomiting, bloody stools or diarrhea : Denies dysuria Musculoskeletal: Denies back pain or joint pain Integument: Denies rash Neurologic: Denies headache, focal weakness or sensory changes Endocrine: Complains of hyperglycemia Lymphatic: Denies swollen glands Psychiatric: Denies depression or anxiety Family History: Family History: Diabetes and hypertension Current Medications: Current Meds: See nursing for home meds Allergies: Allergies: Allergies Coded Allergies Type Severity Reaction Last Updated Verified NSAIDS (Non-Steroidal Anti-Inflamma Allergy Intermediate 05/02/21 Yes ketorolac Allergy Intermediate Itching 05/02/21 Yes levofloxacin Allergy Intermediate 05/02/21 Yes shellfish derived Allergy Intermediate Swelling 05/02/21 Yes vancomycin Allergy Intermediate 05/02/21 Yes acetaminophen Adverse Reaction Severe 05/02/21 Yes Physical Exam: PE: Constitutional: Moderate acute distress, non-toxic appearance. [] HENT: Normocephalic, atraumatic, bilateral external ears normal, oropharynx dry, no oral exudates, nose normal. [] Eyes: PERRLA, EOMI, conjunctiva normal, no discharge. [] Neck: Normal range of motion, no tenderness, supple, no stridor. [] Cardiovascular:Heart rate regular rhythm, no murmur []PMI to Lt. Lungs & Thorax: Bilateral breath sounds equal apex with scattered wheezes on auscultation [] Abdomen: Bowel sounds normal, soft, mild generalized tenderness, no masses, no pulsatile masses. Multiple surgery scars. Morbidly obese. Distended. Skin: Warm, dry, no erythema, no rash. [] Back: No tenderness, no CVA tenderness. Surgery scar Extremities: No tenderness, no cyanosis, no clubbing, ROM intact, no edema. [] No psoas. No cording appreciated. Neurologic: Alert and oriented X 3, moves all extremities on request, has distal sensory,, no focal deficits noted. [] Psychologic: Affect anxious, judgement normal, mood normal. [] EKG: EKG: My interpretation of EKG shows a sinus at 87, Lt. axis, no findings of acute STEMI. Time of EKG 01:54.[] Radiology/Procedures: Radiology/Procedures: [][place] [id number] IMAGING REPORT Signed PATIENT: ASNFORD RANDHAWA ACCOUNT: [id number] : 1980 LOCATION: ER AGE: 40 SEX: F EXAM STATUS: REG ER ORD. PHYSICIAN: RICKIE LAMB MD REASON: pain PROCEDURE: ACUTE ABDOMEN SERIES Study: XR ABDOMEN COMP ACUTE Indication: Pain. Comparison: CT abdomen/pelvis 05/04/2021 Findings: Right chest wall stimulator hub again noted. Unremarkable/unchanged cardio mediastinal silhouette and stephy. No focal airspace infiltrate, pleural effusion or pneumothorax. Nonobstructive bowel gas pattern. Mild volume colonic stool burden mainly within the ascending colon. No pneumoperitoneum. Cholecystectomy clips and suture ma terial along the right hemipelvis. Impression: 1. Nonobstructive bowel gas pattern. Mild degree of constipation. 2. No acute radiographic abnormality of the chest. Electronically signed by: LUIZ ACOSTA MD (05/22/2021 2:16 AM) [facility] DICTATED AND SIGNED BY: LUIZ ACOSTA MD DATE: 05/22/21213 CC: PEDRO PABLO JORDAN MD; RICKIE LAMB MD ~MTH0 0 Heart Score: C/O Chest Pain: No Risk Factors: Risk Factors: DM, Current or recent (<one month) smoker, HTN, HLP, family history of CAD, obesity. Risk Scores: Score 0 - 3: 2.5% MACE over next 6 weeks - Discharge Home Score 4 - 6: 20.3% MACE over next 6 weeks - Admit for Clinical Observation Score 7 - 10: 72.7% MACE over next 6 weeks - Early Invasive Strategies Course & Med Decision Making: Course & Med Decision Making Pertinent Labs and Imaging studies reviewed. (See chart for details) Discussed presentation, testing and tx. plan with . Admit for hydration and insulin qtt. Impression: 1.DM-Hyperglycemia 481-to 474 to 364 while on insulin qtt 2.Dehydration 3. RODRIGUEZ 4. Elevated AST-93, ALT-118 5. Chronic Pain 7. Constipation [] Dragon Disclaimer: Dragrena Disclaimer: This electronic medical record was generated, in whole or in part, using a voice recognition dictation system. Departure Departure: Referrals: PEDRO PABLO JORDAN MD (PCP) Dragon Disclaimer This chart was dictated in whole or in part using Voice Recognition software in a busy, high-work load, and often noisy Emergency Department environment. It may contain unintended and wholly unrecognized errors or omissions. RICKIE LAMB MD May 22, 2021 01:11
[2021-05-22] MEDS ORDERED: IV NORMAL SALINE 1,000ML 1,000 ML IV SCH (01:30)
--- NOTE | 2021-05-22 02:16 | EKG ---
[address] [address] Test Date: 2021-05-22 Test Time: 01:54:10 Pat Name: SANFORD RANDHAWA Department: Room: Gender: F Crisis Worker: : 1980 Requested By: RICKIE LAMB Order Number: [id number] Reading MD: Measurements Intervals Bieber Rate: 87 P: 16 MD: 154 QRS: -20 QRSD: 86 T: 28 QT: 346 QTc: 417 Interpretive Statements SINUS RHYTHM LEFTWARD AXIS OTHERWISE NORMAL ECG RI6.02 No previous ECG available for comparison
--- NOTE | 2021-05-22 02:19 | RAD ---
Study: XR ABDOMEN COMP ACUTE Indication: Pain. Comparison: CT abdomen/pelvis 05/04/2021 Findings: Right chest wall stimulator hub again noted. Unremarkable/unchanged cardiomediastinal silhouette and stephy. No focal airspace infiltrate, pleural effusion or pneumothorax. Nonobstructive bowel gas pattern. Mild volume colonic stool burden mainly within the ascending colon. No pneumoperitoneum. Cholecystectomy clips and suture material along the right hemipelvis. Impression: 1. Nonobstructive bowel gas pattern. Mild degree of constipation. 2. No acute radiographic abnormality of the chest. Electronically signed by: LUIZ ACOSTA MD (05/22/2021 2:16 AM) [facility]
[2021-05-22 02:28] LABS: BASO # 0.1 x10^3/uL (0.0-0.2); BASO % 2 % (0-3); EOS # 0.1 x10^3/uL (0.0-0.7); EOS % 1 % (0-3); HEMOGLOBIN 12.8 g/dL (12.0-15.5); LYMPH # 2.2 x10^3/uL (1.0-4.8); LYMPH % 28 % (24-48); MEAN CORPUSCULAR HEMOGLOBIN 31 pg (25-35); MEAN CORPUSCULAR HGB CONC 34 g/dL (31-37); MEAN CORPUSCULAR VOLUME 91 fL (79-100); MONO # 0.5 x10^3/uL (0.0-1.1); MONO % 7 % (0-9); NEUT # 4.9 x10^3uL (1.8-7.7); NEUT % 62 % (31-73); PLATELET COUNT 153 x10^3/uL (140-400); RED CELL DISTRIBUTION WIDTH 16.6 % (11.5-14.5); WHITE BLOOD COUNT 7.8 x10^3/uL (4.0-11.0)
[2021-05-22 02:32] LABS: BARBITURATES NEG (NEG); BENZODIAZEPINES POS (NEG); CANNABINOIDS NEG (NEG); COCAINE NEG (NEG); METHADONE NEG (NEG); OPIATES NEG (NEG); PHENCYCLIDINE NEG (NEG)
[2021-05-22 02:33] LABS: AMPHETAMINE/METHAMPHETAMINE NEG (NEG)
[2021-05-22 02:36] LABS: BILIRUBIN,URINE NEG (NEG); CLARITY,URINE HAZY; COLOR,URINE STRAW; GLUCOSE,URINE >=1000 mg/dL (NEG); NITRITE,URINE NEG (NEG); UROBILINOGEN,URINE 0.2 mg/dL (0.2 mg/dL)
[2021-05-22 02:37] LABS: BACTERIA,URINE 0 /HPF (0-FEW); RBC,URINE >40 /HPF (0-2); SQUAMOUS EPITHELIAL CELL,UR FEW /LPF; WBC,URINE 0 /HPF (0-4)
[2021-05-22 02:43] LABS: ANION GAP 7 (6-14); BLOOD UREA NITROGEN 8 mg/dL (7-20); CALCIUM 8.5 mg/dL (8.5-10.1); CARBON DIOXIDE 29 mmol/L (21-32); CHLORIDE 101 mmol/L (98-107); CREATININE 0.6 mg/dL (0.6-1.0); GFR 110.7; GLUCOSE 474 mg/dL (70-99); POTASSIUM 4.5 mmol/L (3.5-5.1); SODIUM 137 mmol/L (136-145)
[2021-05-22] MEDS ORDERED: INSULIN REGULAR 100 UNIT/ML 3ML VIAL. IV ONE ×2 (02:45→03:15)
[2021-05-22 02:56] LABS: ALBUMIN 3.2 g/dL (3.4-5.0); ALK PHOS 114 U/L (46-116); ALT (SGPT) 118 U/L (14-59); AST (SGOT) 93 U/L (15-37); MAGNESIUM 1.9 mg/dL (1.8-2.4); TOTAL BILIRUBIN 0.5 mg/dL (0.2-1.0); TOTAL PROTEIN 6.3 g/dL (6.4-8.2)
[2021-05-22 03:00] LABS: DIRECT BILIRUBIN < 0.1 mg/dL (0.0-0.2)
[2021-05-22] MEDS ORDERED: INSULIN REGULAR VIAL 100 UNIT in IV NORMAL SALINE 100ML 100 ML IV PRN (03:00)
[2021-05-22] MEDS ORDERED: IV NORMAL SALINE 100ML 100 ML ONE ×2 (04:14→04:15)
[2021-05-22] MEDS: IPRATRPIUM/ALBUTEROL 0.5/2.5MG 3 ML NEBU. NEB SCH ×4 (06:30→20:00)
[2021-05-22] MEDS ORDERED: IV NORMAL SALINE 1,000ML 1,000 ML IV ONE ×2 (06:30→07:30)
[2021-05-22 08:39] VITALS: BP 123/78
[2021-05-22] MEDS ORDERED: CYCLOBENZAPRINE 10 MG TABLET. PO PRN (08:45)
[2021-05-22] MEDS ORDERED: SENNOSIDES/DOCUSATE 8.6/50MG TABLET. PO PRN (08:45)
[2021-05-22] MEDS ORDERED: ONDANSETRON ODT 4 MG TAB.RAPDIS PO PRN (08:45)
[2021-05-22] MEDS ORDERED: NON FORMULARY ITEM (Umeclidinium Brm/Vilanterol Tr (Anoro Ellipta 62.5-25 Mcg Inh) 1 EACH) IH PRN (08:45)
[2021-05-22] MEDS: BUDESONIDE 0.5 MG/2 ML NEBU NEB SCH ×2 (09:23→20:00)
[2021-05-22] MEDS: PANTOPRAZOLE 40 MG TABLET. PO SCH (09:30)
[2021-05-22] MEDS: DESVENLAFAXINE 50 MG TAB.ER.24H. PO SCH (09:30)
[2021-05-22] MEDS: EMPAGLIFLOZIN 10 MG TABLET. PO SCH ×2 (09:30→09:57)
[2021-05-22] MEDS: FERROUS SULFATE 325 MG TABLET. PO SCH (09:55)
[2021-05-22] MEDS: ONDANSETRON PF 4 MG/2 ML VIAL. IVP PRN ×2 (09:55→20:42)
[2021-05-22] MEDS: MORPHINE SULFATE 2 MG/ML DISP.SYRIN. IV PRN ×4 (09:55→20:41)
[2021-05-22] MEDS: buPROPion SR 100 MG TABLET.SA. PO SCH (09:56)
[2021-05-22 11:15] VITALS: BP 106/67
--- NOTE | 2021-05-22 11:23 | HP ---
HISTORY OF PRESENT ILLNESS: This is a 40-year-old female who came in through the Emergency Room with severe abdominal pain. The patient has also been having severe problems with hyperglycemia, blood sugars greater than 500-600 despite being on multiple doses of insulin. The patient was admitted not only because of her elevated sugars, she also had hematuria as well as severe abdominal pain with marked distention of her abdomen, bloatedness and the like. The patient otherwise would be placed on an insulin drip down in the ER and brought up here to the floor for further evaluation. Her SARS was negative. PAST MEDICAL HISTORY: Extensive including a nasal repair, tonsillitis, tonsillectomy, adenoidectomy, cardiac problems, hypercholesterolemia, hypertension, COPD, GERD, sleep apnea, esophageal varices, diverticulitis, pancreatitis, hysterectomy, cholecystectomy, hernia repair, obesity, GERD, cervical cancer, uterine prolapse, breast reduction, breast implant, hysterectomy as noted, kidney stones, urinary tract infections, incontinence, fibromyalgia, endocrine disorders of diabetes, hypoglycemia, psychiatric problems of bipolar disease, depression, anxiety, previous suicide attempt, smoking cessation counseling, but failed, continues to smoke, inability to cope with ADLs and history of cervical cancer. IMMUNIZATIONS: Up to date on tetanus and the like. ALLERGIES: TO NONSTEROIDAL ANTI-INFLAMMATORIES INCLUDING KETOROLAC, LEVOTHYROXINE, SHELLFISH DERIVED, AND VANCOMYCIN. MEDICATIONS: The patient's medications at home include that of Anoro Ellipta, cyclobenzaprine, ferrous sulfate, gabapentin, 200 mg daily, Pristiq 100 mg daily, Seroquel, Xanax, Protonix, and Jardiance. FAMILY HISTORY: Noncontributory or unremarkable. SOCIAL HISTORY: As noted, has a heavy smoking history, 40-50 pack year history as well as denies alcohol or hard drug use; however, she is a full code. REVIEW OF SYSTEMS: Outside of her abdominal pain, which is markedly distended and so forth, the patient, otherwise her head was atraumatic, normocephalic. Eyes: PERRLA, without jaundice and so forth. The patient denies any neurological deficits at the present time. She denies chest pain or shortness of breath. PHYSICAL EXAMINATION: GENERAL: This is a pleasant white female, in moderate amount of discomfort. VITAL SIGNS: Blood pressure 115/72, respiratory rate 20, pulse 70, afebrile, 97. HEENT: The patient's head was atraumatic, normocephalic. Eyes: PERRLA without jaundice. The mouth and throat were normal. NECK: Supple without evidence of JVD, carotid bruit or thyromegaly. LUNGS: Diminished throughout, but clear. CARDIOVASCULAR: Regular sinus rhythm. ABDOMEN: Soft, but markedly distended, bloated firm to touch, but soft. Positive bowel sounds. Some guarding, but no rebounding. EXTREMITIES: No clubbing, cyanosis, nor edema. NEUROLOGIC: The patient was alert and oriented x 3. LABORATORY DATA: White count 7, hemoglobin and hematocrit 12 and 38. Chemistries: 137. 4.5. Sugars greater than 500. BUN and creatinine 18 and 0.6. Albumin 3.2, low. Elevated liver enzymes of 93 and 118. IMPRESSION AND PLAN: Uncontrolled diabetes with severe hyperglycemia, abdominal pain, moderate protein malnutrition, type 2 diabetes, history of bipolar disease, depression. We will go ahead and continue on the insulin drip, make further evaluation on her as indicated, give her fluids, get the CT scan of her abdomen and pelvis, find out what is going on there and make further evaluation on her per those results. JOHN/AIDE/KANDIS DR: Maricruz TID: [id number]
--- NOTE | 2021-05-22 11:45 | RAD ---
EXAM: CT ABDOMEN/PELVIS WITHOUT CONTRAST. HISTORY: Abdominal pain. TECHNIQUE: Computed tomography of the abdomen and pelvis was performed without intravenous contrast. One or more of the following individualized dose reduction techniques were utilized for this examinat ion: 1. Automated exposure control. 2. Adjustment of the mA and/or kV according to patient size. 3. Use of iterative reconstruction technique. COMPARISON: 05/04/2021. FINDINGS: Lung windows through the visualized portions of the bases reveal mild atelectasis. Bone win dows reveal no suspicious lesions. The gallbladder is surgically absent. The liver and spleen are mildly enlarged. A fat density mass in the left adrenal gland measures 2.7 x 2.6 cm and is consistent with a benign myelolipoma. The right adrenal gland is unremarkable. The pancreas and kidneys are unremarkable without contrast. The uterus is surgically absent. A tiny focus of gas is noted in the bladder. The appendix is not inf lamed. There is no small bowel obstruction. IMPRESSION: 1. No cause for acute pain is identified. 2. Mild hepatic splenomegaly. 3. 2.7 cm benign left adrenal myelolipoma. 4. A small amount of gas in the bladder may reflect recent instrumentation. No evidence of fistula. Electronically signed by: Julianne Hines MD (05/22/2021 11:43 AM) [id number]
[2021-05-22] MEDS ORDERED: DEXTROSE 50% 25 GM / 50ML DISP.SYRIN. IV PRN (12:15)
[2021-05-22] MEDS: INSULIN LISPRO 300 UNITS/3 ML VIAL. SQ SCH (12:23)
[2021-05-22] MEDS: ALPRAZolam 0.5 MG TABLET PO PRN ×2 (13:21→20:42)
[2021-05-22 16:18] VITALS: BP 92/52
[2021-05-22] MEDS: INSULIN GLARGINE SYRINGE. SQ SCH (20:47)
[2021-05-22 20:49] VITALS: BP 98/59
[2021-05-22] MEDS ORDERED: QUEtiapine 100 MG TABLET. PO SCH (21:00)
[2021-05-22] MEDS ORDERED: GABAPENTIN 300 MG CAPSULE. PO SCH (21:00)
[2021-05-22 23:14] VITALS: BP 111/78
[2021-05-23 05:28] VITALS: BP 96/68
[2021-05-23 07:22] LABS: BASO # 0.1 x10^3/uL (0.0-0.2); BASO % 1 % (0-3); EOS # 0.1 x10^3/uL (0.0-0.7); EOS % 1 % (0-3); HEMATOCRIT 42.5 % (36.0-47.0); HEMOGLOBIN 14.3 g/dL (12.0-15.5); LYMPH # 1.9 x10^3/uL (1.0-4.8); LYMPH % 24 % (24-48); MEAN CORPUSCULAR HEMOGLOBIN 30 pg (25-35); MEAN CORPUSCULAR HGB CONC 34 g/dL (31-37); MEAN CORPUSCULAR VOLUME 90 fL (79-100); MONO # 0.5 x10^3/uL (0.0-1.1); MONO % 6 % (0-9); NEUT # 5.4 x10^3uL (1.8-7.7); NEUT % 68 % (31-73); PLATELET COUNT 175 x10^3/uL (140-400); RED BLOOD COUNT 4.73 x10^6/uL (3.50-5.40); RED CELL DISTRIBUTION WIDTH 16.6 % (11.5-14.5); WHITE BLOOD COUNT 7.9 x10^3/uL (4.0-11.0)
[2021-05-23 07:39] LABS: CALCIUM 9.2 mg/dL (8.5-10.1); CREATININE 0.7 mg/dL (0.6-1.0); GFR 92.7
[2021-05-23] MEDS: BUDESONIDE 0.5 MG/2 ML NEBU NEB SCH (08:00)
[2021-05-23] MEDS: MORPHINE SULFATE 2 MG/ML DISP.SYRIN. IV PRN ×2 (08:19→12:01)
[2021-05-23] MEDS: FERROUS SULFATE 325 MG TABLET. PO SCH (08:19)
[2021-05-23] MEDS: ALPRAZolam 0.5 MG TABLET PO PRN (08:19)
[2021-05-23] MEDS: PANTOPRAZOLE 40 MG TABLET. PO SCH (08:19)
[2021-05-23] MEDS: INSULIN LISPRO 300 UNITS/3 ML VIAL. SQ SCH ×2 (08:20→12:26)
[2021-05-23] MEDS: DESVENLAFAXINE 50 MG TAB.ER.24H. PO SCH (08:21)
[2021-05-23] MEDS: EMPAGLIFLOZIN 10 MG TABLET. PO SCH (08:21)
[2021-05-23] MEDS: buPROPion SR 100 MG TABLET.SA. PO SCH (08:22)
[2021-05-23] MEDS: INSULIN GLARGINE SYRINGE. SQ SCH (11:36)
[2021-05-23 11:47] VITALS: BP 110/65
== END 2021-05-23 13:24 | disposition home or self-care (01) | DRG 638 ==
LOC: ER 01:02 → 1 SOUTH 06:19
PROVIDERS: ADMIT Family Medicine; ATTEND Family Medicine
DX: E11.65 Type 2 diabetes mellitus with hyperglycemia (principal); E44.0 Moderate protein-calorie malnutrition; I10 Essential (primary) hypertension; J44.9 Chronic obstructive pulmonary disease, unspecified; E78.00 Pure hypercholesterolemia, unspecified; F32.9 Major depressive disorder, single episode, unspecified; F41.9 Anxiety disorder, unspecified; G47.30 Sleep apnea, unspecified; G89.29 Other chronic pain; E86.0 Dehydration; K59.00 Constipation, unspecified; K75.81 Nonalcoholic steatohepatitis (NASH); K21.9 Gastro-esophageal reflux disease without esophagitis; M79.7 Fibromyalgia; M19.90 Unspecified osteoarthritis, unspecified site; Z98.82 Breast implant status; Z91.5 Personal history of self-harm; Z91.19 Patient's noncompliance with other medical treatment and regimen; Z90.710 Acquired absence of both cervix and uterus; Z87.891 Personal history of nicotine dependence; Z85.41 Personal history of malignant neoplasm of cervix uteri; Z83.3 Family history of diabetes mellitus; Z82.49 Family history of ischemic heart disease and other diseases of the circulatory system; Z79.4 Long term (current) use of insulin; Z68.33 Body mass index [BMI] 33.0-33.9, adult
CPT/HCPCS: 36415; 74022; 74176; 80048; 80076; 80307; 81001; 82550; 82947; 83735; 83880; 84484; 85025; 87426; 93005; 96361; 96365; 96376; 99406; J1815; J2270; J2405; U0003; 99285-25; J7030

== ENCOUNTER 2021-05-31 17:01 | Emergency (ER) | payer BC ==
[~2021-05-31] VITALS: Ht 165.1 cm; Wt 91.3 kg
[2021-05-31 17:01] VITALS: BP 120/76
--- NOTE | 2021-05-31 17:23 | PHYS DOC ---
Past History Past Medical History: Anxiety, Arthritis, Bipolar, Depression, Diverticulitis, Diabetes, Fibromyalgia, GERD, High Cholesterol, Hypertension, Kidney Stones, UTI, Other Additional Past Medical Histor: RODRIGUEZ (EVELIN NORRIS DO) Past Surgical History: Cholecystectomy, Hysterectomy, Tonsillectomy, Other Additional Past Surgical Histo: hernia, ankle (EVELIN NORRIS DO) Smoking: Cigarettes, Less than 1pk/day Alcohol Use: None Drug Use: None (EVELIN NORRIS DO) Adult General Chief Complaint Chief Complaint: HYPERGLYCEMIA HPI HPI Patient is a 41-year-old female presenting for hyperglycemia. She is well-known to our department. She is a known type 1.5 diabetic with an insulin pump. Reports she was attending [place] today in [facility], states she had been having fine but had not checked her fingerstick glucose in a while. Ultimately came back home and felt fatigue prompting her to check her fingerstick blood glucose that read high prompting her to come in for evaluation. On arrival to ER, she realized her insulin pump had run out of battery, she does not know how long it has been out of battery nonoperational. She is a poorly controlled diabetic with last A1c drawn in past month at 10.5%. Also complains of acute on chronic generalized abdominal pain that is midline, has prior history of cholecystectomy, abdominal hernia and total hysterectomy. She is well-established in outpatient setting with GI and endocrinology physicians (EVELIN NORRIS DO) Review of Systems Review of Systems Fourteen body systems of review of systems have been reviewed. See HPI for pertinent positives and negative responses, other bain all other systems are negative, non-pertinent or non-contributory (EVELIN NORRIS DO) Allergies Allergies Allergies Coded Allergies Type Severity Reaction Last Updated Verified NSAIDS (Non-Steroidal Anti-Inflamma Allergy Intermediate 05/02/21 Yes ketorolac Allergy Intermediate Itching 05/02/21 Yes levofloxacin Allergy Intermediate 05/02/21 Yes shellfish derived Allergy Intermediate Swelling 05/02/21 Yes vancomycin Allergy Intermediate 05/02/21 Yes acetaminophen Adverse Reaction Severe 05/02/21 Yes (EVELIN NORRIS DO) Physical Exam Physical Exam Constitutional: Well developed, well nourished, no acute distress, non-toxic appearance. HENT: Normocephalic, atraumatic, bilateral external ears normal, oropharynx moist, no oral exudates, nose normal. Eyes: PERRLA, EOMI, conjunctiva normal, no discharge. Neck: Normal range of motion, no tenderness, supple, no stridor. Cardiovascular: Heart rate regular, sinus rhythm, no murmurs rubs or gallops Lungs & Thorax: Bilateral breath sounds clear to auscultation Abdomen: Bowel sounds normal, soft, no tenderness, no masses, no pulsatile lawrence s. Nonsurgical abdomen, no peritoneal signs Skin: Warm, dry, no erythema, no rash. Back: No tenderness, no CVA tenderness. Extremities: No tenderness, no cyanosis, no clubbing, ROM intact, no edema. Neurologic: Alert and oriented X 3, grossly normal motor & sensory function, no focal deficits noted. Psychologic: Affect normal, judgement normal, mood normal. (EVELIN NORRIS DO) Current Patient Data Vital Signs Vital Signs Date Time Temp Pulse Resp B/P (MAP) Pulse Ox O2 Delivery O2 Flow Rate FiO2 05/31/21 17:01 97.9 108 20 120/76 98 Room Air Vital Signs Date Time Temp Pulse Resp B/P (MAP) Pulse Ox O2 Delivery O2 Flow Rate FiO2 05/31/21 17:01 97.9 108 20 120/76 98 Room Air (EVELIN NORRIS DO) EKG EKG [] (EVELIN NORRIS DO) Radiology/Procedures Radiology/Procedures [] (EVELIN NORRIS DO) Heart Score C/O Chest Pain: No Risk Factors: Risk Factors: DM, Current or recent (<one month) smoker, HTN, HLP, family history of CAD, obesity. Risk Scores: Risk Factors: DM, Current or recent (<one month) smoker, HTN, HLP, family history of CAD, obesity. (EVELIN NORRIS DO) C/O Chest Pain: No (LUKAS TRAVIS MD) Course & Med Decision Making Course & Med Decision Making Airway patent, breathing unlabored, vitals and [id number] glucose obtained concerning blood sugar of 496 Patient has history DKA, given this and the fact that patient appears to be in poor health and has poor grasp of her illness, decision was made to pursue labs and other diagnostic tools to ensure patient is not in DKA or suffering from other life-threatening abnormalities At this time in care, my shift was ending. I gave comprehensive signout to oncoming physician who is aware of patient. Please defer to his documentation regarding future care of patient who is pending ER work-up at present (EVELIN NORRIS DO) Course & Med Decision Making Patient care handed off to me at checkout pending labs. Patient awake alert and oriented in no acute distress. Repeat vital signs not concerning. Patient able to take p.o. Patient with hyperglycemia but no signs of DKA or acidemia. Patient requesting Percocet for body pain with no specific areas to stating that it is all over. Offered Tylenol, ibuprofen or Benadryl to start to see if that works but states that none of that works only Percocet works. Informed patient that she looks well, her vital signs were well and other than having high blood sugar which she can manage at home via her insulin and diet she was safe for discharge home. Advised to follow-up in the morning with her primary care physician to discuss pain management if needed. Gave return precautions to the ED. Patient grateful, verbalized understanding and agreed with plan of discharge. (LUKAS TRAVIS MD) Dragon Disclaimer Dragon Disclaimer This electronic medical record was generated, in whole or in part, using a voice recognition dictation system. (EVELIN NORRIS DO) Departure Departure: Impression: Primary Impression: Poorly controlled type 2 diabetes mellitus Disposition: HOME / SELF CARE / HOMELESS Condition: STABLE Referrals: PEDRO PABLO JORDAN MD (PCP) EVELIN NORRIS DO May 31, 2021 17:23 LUKAS TRAVIS MD May 31, 2021 19:19
[2021-05-31] MEDS ORDERED: IV NORMAL SALINE 1,000ML 1,000 ML IV ONE (18:00)
--- NOTE | 2021-05-31 18:19 | EKG ---
[address] [address] Test Date: 2021-05-31 Test Time: 18:10:41 Pat Name: SANFORD RANDHAWA Department: Room: Gender: F Forms Analysis Manager: : 1980 Requested By: EVELIN NORRIS Order Number: [id number] Reading MD: Measurements Intervals [place] Rate: 104 P: -9 SC: 150 QRS: -41 QRSD: 84 T: 32 QT: 336 QTc: 442 Interpretive Statements SINUS TACHYCARDIA ABNORMAL LEFT AXIS DEVIATION R-S TRANSITION ZONE IN V LEADS DISPLACED TO THE LEFT LEFT ANTERIOR FASCICULAR BLOCK ABNORMAL ECG RI6.02 No previous ECG available for comparison
[2021-05-31 18:23] LABS: AMPHETAMINE/METHAMPHETAMINE NEG (NEG); BARBITURATES NEG (NEG); BENZODIAZEPINES POS (NEG); CANNABINOIDS NEG (NEG); COCAINE NEG (NEG); METHADONE NEG (NEG); OPIATES NEG (NEG); PHENCYCLIDINE NEG (NEG)
[2021-05-31 18:35] LABS: BACTERIA,URINE 0 /HPF (0-FEW); BILIRUBIN,URINE NEG (NEG); CLARITY,URINE HAZY; COLOR,URINE YELLOW; GLUCOSE,URINE >=1000 mg/dL (NEG); NITRITE,URINE NEG (NEG); RBC,URINE >40 /HPF (0-2); SQUAMOUS EPITHELIAL CELL,UR MOD /LPF; UROBILINOGEN,URINE 0.2 mg/dL (0.2 mg/dL); WBC,URINE 0 /HPF (0-4)
[2021-05-31 18:53] LABS: BASO # 0.1 x10^3/uL (0.0-0.2); BASO % 1 % (0-3); EOS # 0.1 x10^3/uL (0.0-0.7); EOS % 1 % (0-3); HEMATOCRIT 42.8 % (36.0-47.0); HEMOGLOBIN 14.2 g/dL (12.0-15.5); LYMPH # 2.7 x10^3/uL (1.0-4.8); LYMPH % 26 % (24-48); MEAN CORPUSCULAR HEMOGLOBIN 31 pg (25-35); MEAN CORPUSCULAR HGB CONC 33 g/dL (31-37); MEAN CORPUSCULAR VOLUME 92 fL (79-100); MONO # 0.8 x10^3/uL (0.0-1.1); MONO % 8 % (0-9); NEUT # 6.7 x10^3uL (1.8-7.7); NEUT % 65 % (31-73); PLATELET COUNT 184 x10^3/uL (140-400); RED BLOOD COUNT 4.64 x10^6/uL (3.50-5.40); RED CELL DISTRIBUTION WIDTH 17.2 % (11.5-14.5); WHITE BLOOD COUNT 10.3 x10^3/uL (4.0-11.0)
[2021-05-31 19:00] LABS: CALCIUM 9.1 mg/dL (8.5-10.1); CREATININE 0.8 mg/dL (0.6-1.0)
[2021-05-31 19:07] LABS: ALBUMIN 3.8 g/dL (3.4-5.0); TOTAL BILIRUBIN 0.7 mg/dL (0.2-1.0); TOTAL PROTEIN 7.8 g/dL (6.4-8.2)
[2021-05-31 19:22] LABS: POTASSIUM 4.4 mmol/L (3.5-5.1)
[2021-05-31] MEDS ORDERED: oxyCODONE IR 5 MG TABLET PO PRN (19:30)
== END 2021-05-31 19:40 | disposition home or self-care (01) ==
LOC: ER 17:01
DX: E11.65 Type 2 diabetes mellitus with hyperglycemia (principal); K21.9 Gastro-esophageal reflux disease without esophagitis; I10 Essential (primary) hypertension; E78.5 Hyperlipidemia, unspecified; Z88.1 Allergy status to other antibiotic agents; Z91.013 Allergy to seafood; Z90.49 Acquired absence of other specified parts of digestive tract; Z90.710 Acquired absence of both cervix and uterus; Z87.442 Personal history of urinary calculi
CPT/HCPCS: 36415; 80053; 80307; 81001; 82010; 82947; 83690; 84484; 85025; 93005; 99284; G0480

== ENCOUNTER → 2021-06-11 | Emergency (ER) | payer BC ==
[~2021-06-11] VITALS: Ht 165.1 cm; Wt 91.3 kg
[~2021-06-11] MED LIST changes: +INSULIN REGULAR 100 UNIT/ML 3ML VIAL. IV ONE; +IOHEXOL 300 MG/ML 75 ML VIAL. IV ONE; +IV NORMAL SALINE 1,000ML 1,000 ML IV ONE
[2021-06-11 19:30] VITALS: BP 118/72
[2021-06-11 20:29] LABS: COLOR,URINE YELLOW
[2021-06-11 20:30] LABS: BACTERIA,URINE 0 /HPF (0-FEW); BILIRUBIN,URINE NEG (NEG); CLARITY,URINE CLOUDY; GLUCOSE,URINE >=1000 mg/dL (NEG); NITRITE,URINE NEG (NEG); RBC,URINE 20-40 /HPF (0-2); SQUAMOUS EPITHELIAL CELL,UR FEW /LPF; UROBILINOGEN,URINE 0.2 mg/dL (0.2 mg/dL); WBC,URINE 0 /HPF (0-4)
[2021-06-11 20:37] LABS: BASO # 0.1 x10^3/uL (0.0-0.2); BASO % 1 % (0-3); EOS # 0.1 x10^3/uL (0.0-0.7); EOS % 1 % (0-3); HEMATOCRIT 40.2 % (36.0-47.0); HEMOGLOBIN 13.4 g/dL (12.0-15.5); LYMPH # 1.8 x10^3/uL (1.0-4.8); LYMPH % 23 % (24-48); MEAN CORPUSCULAR HEMOGLOBIN 30 pg (25-35); MEAN CORPUSCULAR HGB CONC 33 g/dL (31-37); MEAN CORPUSCULAR VOLUME 91 fL (79-100); MONO # 0.6 x10^3/uL (0.0-1.1); MONO % 8 % (0-9); NEUT # 5.3 x10^3uL (1.8-7.7); NEUT % 68 % (31-73); PLATELET COUNT 180 x10^3/uL (140-400); RED BLOOD COUNT 4.41 x10^6/uL (3.50-5.40); RED CELL DISTRIBUTION WIDTH 17.1 % (11.5-14.5); WHITE BLOOD COUNT 7.9 x10^3/uL (4.0-11.0)
[2021-06-11 20:51] LABS: ALBUMIN 3.5 g/dL (3.4-5.0); ALBUMIN/GLOBULIN RATIO 1.1 (1.0-1.7); CALCIUM 8.8 mg/dL (8.5-10.1); CREATININE 0.9 mg/dL (0.6-1.0); PHOSPHORUS 3.9 mg/dL (2.6-4.7); POTASSIUM 4.2 mmol/L (3.5-5.1); TOTAL BILIRUBIN 0.6 mg/dL (0.2-1.0); TOTAL PROTEIN 6.8 g/dL (6.4-8.2)
--- NOTE | 2021-06-11 21:12 | PHYS DOC ---
Past History Past Medical History: Anxiety, Arthritis, Bipolar, Depression, Diverticulitis, Diabetes, Fibromyalgia, GERD, High Cholesterol, Hypertension, Kidney Stones, UTI, Other Additional Past Medical Histor: RODRIGUEZ (ROGER GARCIA APRN) Past Surgical History: Cholecystectomy, Hysterectomy, Tonsillectomy, Other Additional Past Surgical Histo: hernia, ankle (ROGER GARCIA APRN) Smoking: Cigarettes, Less than 1pk/day Alcohol Use: None Drug Use: None (ROGER GARCIA APRN) Adult General Chief Complaint Chief Complaint: HYPERGLYCEMIA HPI HPI Patient is a 41-year-old female presents emergency department complaining of severe abdominal pain all 4 quadrants, denies vaginal discharge, denies increased urinary frequency, dysuria, blood in her urine, or burning with urination, denies seeing any blood in her stool, denies nausea, vomiting, diarrhea. Denies chest pains, chest congestion, chest palpitations. Patient reports having a history of RODRIGUEZ, is unable to take anti-inflammatories or medications containing Tylenol. Reports that she can only take straight narcotics. Patient reports a 10 out of 10 pain. Patient also states her blood sugars have been out of control in the 500 range. Patient denies increased thirst or increased urination. Patient denies any other physical concerns or physical complaints. (ROGER GARCIA APRN) Review of Systems Review of Systems 14 body systems of review of systems have been reviewed. See HPI for pertinent positives and negative responses, otherwise all other systems are negative, nonpertinent or noncontributory. Constitutional: Negative except as outlined in HPI above. Skin: Negative except as outlined in HPI above. Eyes: Negative except as outlined in HPI above. HENT: Negative except as outlined in HPI above. Respiratory: Negative except as outlined in HPI above. Cardiovascular: Negative except as outlined in HPI above. GI: Negative except as outlined in HPI above. : Negative except as outlined in HPI above. Musculoskeletal: Negative except as outlined in HPI above. Integument: Negative except as outlined in HPI above. Neurologic: Negative except as outlined in HPI above. Endocrine: Negative except as outlined in HPI above. Lymphatic: Negative except as outlined in HPI above. Psychiatric: Negative except as outlined in HPI above. (ROGER GARCIA APRN) Current Medications Current Medications Current Medications Medications (Trade) Dose Ordered Sig/Yoko Start Time Stop Time Status Last Admin Dose Admin Iohexol (Omnipaque 300 Mg/ml) 75 ml 1X ONCE 06/11/21 20:00 06/11/21 20:11 DC Sodium Chloride 1,000 ml @ 1,000 mls/hr 1X ONCE 06/11/21 19:45 06/11/21 20:44 DC 06/11/21 20:25 1,000 MLS/HR (ROGER GARCIA APRN) Allergies Allergies Allergies Coded Allergies Type Severity Reaction Last Updated Verified NSAIDS (Non-Steroidal Anti-Inflamma Allergy Intermediate 05/02/21 Yes ketorolac Allergy Intermediate Itching 05/02/21 Yes levofloxacin Allergy Intermediate 05/02/21 Yes shellfish derived Allergy Intermediate Swelling 05/02/21 Yes vancomycin Allergy Intermediate 05/02/21 Yes acetaminophen Adverse Reaction Severe 05/02/21 Yes (ROGER GARCIA APRN) Physical Exam Physical Exam Constitutional: Well developed, well nourished, no acute distress, non-toxic appearance. 41-year-old female in no apparent distress. Patient's complaint level of pain exceeds patient's physical appearance and presentation. HENT: Normocephalic, atraumatic. Eyes: Conjunctiva normal, no discharge. Neck: Normal range of motion, no stridor. Cardiovascular: No cyanosis appreciated, distal cap refill less than 2 seconds. Lungs & Thorax: Patient is in no respiratory distress, no audible adventitious lung sounds appreciated. Abdomen: No abnormalities noted, no masses, bowel sounds normal all 4 quadrants, patient pain to palpation all 4 quadrants. Skin: Warm, dry, no erythema, no rash. Back: No tenderness, no deformities. Extremities: No tenderness, no cyanosis, no clubbing, ROM intact, no edema. Neurologic: Alert and oriented X 3, normal motor function, normal sensory function, no focal deficits noted. Psychologic: Affect normal, judgement normal, mood normal. (ROGER GARCIA APRN) Current Patient Data Lab Results Laboratory Tests Test 06/11/21 19:20 06/11/21 20:10 06/11/21 20:20 Urine Collection Type Unknown Urine Color Yellow Urine Clarity Cloudy Urine pH 5.0 Urine Specific [place] 1.010 Urine Protein Neg Urine Glucose (UA) >=1000 mg/dL Urine Ketones (Stick) Neg mg/dL Urine Blood Mod Urine Nitrite Neg Urine Bilirubin Neg Urine Urobilinogen Dipstick 0.2 mg/dL Urine Leukocyte Esterase Neg Urine RBC 20-40 /HPF Urine WBC 0 /HPF Urine Squamous Epithelial Cells Few /LPF Urine Bacteria 0 /HPF White Blood Count 7.9 x10^3/uL Red Blood Count 4.41 x10^6/uL Hemoglobin 13.4 g/dL Hematocrit 40.2 % Mean Corpuscular Volume 91 fL Mean Corpuscular Hemoglobin 30 pg Mean Corpuscular Hemoglobin Concent 33 g/dL Red Cell Distribution Width 17.1 % Platelet Count 180 x10^3/uL Neutrophils (%) (Auto) 68 % Lymphocytes (%) (Auto) 23 % Monocytes (%) (Auto) 8 % Eosinophils (%) (Auto) 1 % Basophils (%) (Auto) 1 % Neutrophils # (Auto) 5.3 x10^3uL Lymphocytes # (Auto) 1.8 x10^3/uL Monocytes # (Auto) 0.6 x10^3/uL Eosinophils # (Auto) 0.1 x10^3/uL Basophils # (Auto) 0.1 x10^3/uL Sodium Level 132 mmol/L Potassium Level 4.2 mmol/L Chloride Level 96 mmol/L Carbon Dioxide Level 27 mmol/L Anion Gap 9 Blood Urea Nitrogen 8 mg/dL Creatinine 0.9 mg/dL Estimated GFR (Cockcroft-Gault) 69.0 BUN/Creatinine Ratio 9 Glucose Level 536 mg/dL Calcium Level 8.8 mg/dL Phosphorus Level 3.9 mg/dL Magnesium Level 2.0 mg/dL Total Bilirubin 0.6 mg/dL Aspartate Amino Transf (AST/SGOT) 44 U/L Alanine Aminotransferase (ALT/SGPT) 92 U/L Alkaline Phosphatase 154 U/L Total Protein 6.8 g/dL Albumin 3.5 g/dL Albumin/Globulin Ratio 1.1 Lipase 113 U/L Acetone Level Neg Glucose (Fingerstick) 575 mg/dL Current Medications Medications (Trade) Dose Ordered Sig/Yoko Route PRN Reason Start Time Stop Time Status Last Admin Dose Admin Sodium Chloride 1,000 ml @ 1,000 mls/hr 1X ONCE IV 06/11/21 19:45 06/11/21 20:44 DC 06/11/21 20:25 1,000 MLS/HR Iohexol (Omnipaque 300 Mg/ml) 75 ml 1X ONCE IV 06/11/21 20:00 06/11/21 20:11 DC Laboratory Tests Test 06/11/21 19:20 06/11/21 20:10 06/11/21 20:20 Urine Collection Type Unknown Urine Color Yellow Urine Clarity Cloudy Urine pH 5.0 Urine Specific [place] 1.010 Urine Protein Neg (NEG-TRACE) Urine Glucose (UA) >=1000 mg/dL (NEG) Urine Ketones (Stick) Neg mg/dL (NEG) Urine Blood Mod (NEG) Urine Nitrite Neg (NEG) Urine Bilirubin Neg (NEG) Urine Urobilinogen Dipstick 0.2 mg/dL (0.2 mg/dL) Urine Leukocyte Esterase Neg (NEG) Urine RBC 20-40 /HPF (0-2) Urine WBC 0 /HPF (0-4) Urine Squamous Epithelial Cells Few /LPF Urine Bacteria 0 /HPF (0-FEW) White Blood Count 7.9 x10^3/uL (4.0-11.0) Red Blood Count 4.41 x10^6/uL (3.50-5.40) Hemoglobin 13.4 g/dL (12.0-15.5) Hematocrit 40.2 % (36.0-47.0) Mean Corpuscular Volume 91 fL (79-100) Mean Corpuscular Hemoglobin 30 pg (25-35) Mean Corpuscular Hemoglobin Concent 33 g/dL (31-37) Red Cell Distribution Width 17.1 % (11.5-14.5) H Platelet Count 180 x10^3/uL (140-400) Neutrophils (%) (Auto) 68 % (31-73) Lymphocytes (%) (Auto) 23 % (24-48) L Monocytes (%) (Auto) 8 % (0-9) Eosinophils (%) (Auto) 1 % (0-3) Basophils (%) (Auto) 1 % (0-3) Neutrophils # (Auto) 5.3 x10^3uL (1.8-7.7) Lymphocytes # (Auto) 1.8 x10^3/uL (1.0-4.8) Monocytes # (Auto) 0.6 x10^3/uL (0.0-1.1) Eosinophils # (Auto) 0.1 x10^3/uL (0.0-0.7) Basophils # (Auto) 0.1 x10^3/uL (0.0-0.2) Sodium Level 132 mmol/L (136-145) L Potassium Level 4.2 mmol/L (3.5-5.1) Chloride Level 96 mmol/L (98-107) L Carbon Dioxide Level 27 mmol/L (21-32) Anion Gap 9 (6-14) Blood Urea Nitrogen 8 mg/dL (7-20) Creatinine 0.9 mg/dL (0.6-1.0) Estimated GFR (Cockcroft-Gault) 69.0 BUN/Creatinine Ratio 9 (6-20) Glucose Level 536 mg/dL (70-99) *H Calcium Level 8.8 mg/dL (8.5-10.1) Phosphorus Level 3.9 mg/dL (2.6-4.7) Magnesium Level 2.0 mg/dL (1.8-2.4) Total Bilirubin 0.6 mg/dL (0.2-1.0) Aspartate Amino Transferase (AST) 44 U/L (15-37) H Alanine Aminotransferase (ALT) 92 U/L (14-59) H Alkaline Phosphatase 154 U/L (46-116) H Total Protein 6.8 g/dL (6.4-8.2) Albumin 3.5 g/dL (3.4-5.0) Albumin/Globulin Ratio 1.1 (1.0-1.7) Lipase 113 U/L (73-393) Acetone Level Neg (NEG) Glucose (Fingerstick) 575 mg/dL (70-99) *H (ROGER GARCIA APRN) EKG EKG [] (ROGER GARCIA APRN) Radiology/Procedures Radiology/Procedures [] (ROGER GARCIA APRN) Heart Score C/O Chest Pain: No Risk Factors: Risk Factors: DM, Current or recent (<one month) smoker, HTN, HLP, family history of CAD, obesity. Risk Scores: Risk Factors: DM, Current or recent (<one month) smoker, HTN, HLP, family history of CAD, obesity. (ROGER GARCIA APRN) Course & Med Decision Making Course & Med Decision Making Pertinent Labs and Imaging studies reviewed. (See chart for details) 41-year-old female, vital signs reviewed, presents emergency department complaining of abdominal pain and abnormal blood sugars. Patient is physical exam unremarkable, will order abdominal work-up, will await CT abdomen pelvis with IV contrast results prior to considering pain medication patient has been seen several times here in the emergency department with drug-seeking type behavior, will order DKA work-up however patient does not have any physical signs of DKA. Patient has elevated blood sugar of 575, acetone negative, patient is not in DKA, BUN/creatinine within normal limits, sodium was 132 showing slight dehydration, patient was given 1 L of saline upon arrival, have ordered a second liter of saline with 10 units IV insulin. Awaiting patient's CT abdomen study, will reevaluate blood sugar after period of time. Patient is aware of ED planning and amendable. At approximately 0, patient's primary ED nurse advised me that the patient has eloped from the department. The patient is not in the waiting room, not in the emergency department bathrooms. (ROGER GARCIA APRN) Dragon Disclaimer Dragon Disclaimer This electronic medical record was generated, in whole or in part, using a voice recognition dictation system. (ROGER GARCIA APRN) Departure Departure: Impression: Primary Impression: Eloped from emergency department Disposition: LEFT AWOL/ELOPED Referrals: PEDRO PABLO JORDAN MD (PCP) Attending Signature Attending Signature I have participated in the care of this patient and I have reviewed and agree w ith all pertinent clinical information above including history, exam, and recommendations. (RICKIE LAMB MD) ROGER GARCIA APRN Jun 11, 2021 21:12 RICKIE LAMB MD Jun 15, 2021 08:39
== END | disposition left against medical advice (07) ==
LOC: ER 19:09
DX: R10.84 Generalized abdominal pain (principal); F41.9 Anxiety disorder, unspecified; M19.90 Unspecified osteoarthritis, unspecified site; F31.9 Bipolar disorder, unspecified; E11.9 Type 2 diabetes mellitus without complications; M79.7 Fibromyalgia; K21.9 Gastro-esophageal reflux disease without esophagitis; E78.00 Pure hypercholesterolemia, unspecified; I10 Essential (primary) hypertension; F17.210 Nicotine dependence, cigarettes, uncomplicated; Z87.440 Personal history of urinary (tract) infections; Z90.49 Acquired absence of other specified parts of digestive tract; Z90.710 Acquired absence of both cervix and uterus; Z88.6 Allergy status to analgesic agent; Z88.1 Allergy status to other antibiotic agents; Z91.013 Allergy to seafood; Z88.8 Allergy status to other drugs, medicaments and biological substances
CPT/HCPCS: 36415; 80053; 81001; 82010; 82947; 83690; 83735; 84100; 85025; 96360; 99283; J7030

== ENCOUNTER 2021-06-29 14:00 | Emergency (ER) | payer BC ==
[~2021-06-29] VITALS: Ht 167.6 cm; Wt 100.0 kg
[~2021-06-29 14:00] MED LIST changes: -INSULIN REGULAR 100 UNIT/ML 3ML VIAL. IV ONE; -IOHEXOL 300 MG/ML 75 ML VIAL. IV ONE; -IV NORMAL SALINE 1,000ML 1,000 ML IV ONE
[2021-06-29 14:11] VITALS: BP 109/73
--- NOTE | 2021-06-29 14:28 | PHYS DOC ---
Past History Past Medical History: Anxiety, Arthritis, Bipolar, Depression, Diverticulitis, Diabetes, Fibromyalgia, GERD, High Cholesterol, Hypertension, Kidney Stones, UTI, Other Additional Past Medical Histor: RODRIGUEZ Past Surgical History: No Surgical History Additional Past Surgical Histo: hernia, ankle Smoking: Cigarettes, Less than 1pk/day Alcohol Use: None Drug Use: None Adult General Chief Complaint Chief Complaint: LOWER EXT PAIN HPI HPI Patient is a 41-year-old female presenting for left knee pain. Reports she fell over the weekend in the middle the night when she was walking in the dark, thinks she tripped over something and fell forwards landing on her left anterior knee. She was able to catch herself, did not hit head, no loss of consciousness, no blood thinner use. Reports ongoing left anterior knee pain that is worsened with flexion/extension and weightbearing. She has home pre scribed narcotic pain medication that does not significantly improve her pain. She has not tried icing or stretching or any other supportive care measures. Patient has been ambulating with difficulty due to pain, ongoing symptoms prompted her to transport herself to our facility for evaluation Review of Systems Review of Systems Fourteen body systems of review of systems have been reviewed. See HPI for pertinent positives and negative responses, other bain all other systems are negative, non-pertinent or non-contributory Allergies Allergies Allergies Coded Allergies Type Severity Reaction Last Updated Verified NSAIDS (Non-Steroidal Anti-Inflamma Allergy Intermediate 05/02/21 Yes ketorolac Allergy Intermediate Itching 05/02/21 Yes levofloxacin Allergy Intermediate 05/02/21 Yes shellfish derived Allergy Intermediate Swelling 05/02/21 Yes vancomycin Allergy Intermediate 05/02/21 Yes acetaminophen Adverse Reaction Severe 05/02/21 Yes Physical Exam Physical Exam Constitutional: Well developed, well nourished, no acute distress, non-toxic appearance. HENT: Normocephalic, atraumatic, bilateral external ears normal, oropharynx moist, no oral exudates, nose normal. Eyes: PERRLA, EOMI, conjunctiva normal, no discharge. Neck: Normal range of motion, no tenderness, supple, no stridor. Cardiovascular: Heart rate regular per monitor Lungs & Thorax: No respiratory distress or accessory muscle use, bilateral chest rise Abdomen: Abdomen soft, non-tender, bowel sounds present in all quadrants, no guarding or rebound, nonacute abdomen. Skin: Warm, dry, no erythema, no rash. Back: No tenderness, no CVA tenderness. Extremities: No cyanosis, clubbing, range of motion of entire left lower extremity intact but there is mild edema over anterior portion of the left knee around the patella and there is bony tenderness to anterior portion overlying patella and suprapatellar attachment, remaining knee exams were negative, no joint laxity, negative valgus varus and anterior and posterior Will tests Neurologic: Alert and oriented X 3, grossly normal motor & sensory function, no focal deficits noted. Psychologic: Odd affect, normal mood Current Patient Data Vital Signs Vital Signs Date Time Temp Pulse Resp B/P (MAP) Pulse Ox O2 Delivery O2 Flow Rate FiO2 06/29/21 14:11 97.0 95 20 109/73 (85) 96 Room Air EKG EKG [] Radiology/Procedures Radiology/Procedures Exam Date: 06/29/2021 2:21 PM XR KNEE _4 VIEWS WITH PATELLA_LT Indication: Reason: LEFT ANTERIOR KNEE PAIN / Spl. Instructions: / History: . FINDINGS/ IMPRESSION: Small osteophytes are noted. No acute fracture or dislocation. Alignment and joint spaces are maintained. The soft tissues are within normal limits. Electronically signed by: Marcus Brennan MD (06/29/2021 2:31 PM) [facility] Heart Score C/O Chest Pain: No Risk Factors: Risk Factors: DM, Current or recent (<one month) smoker, HTN, HLP, family history of CAD, obesity. Risk Scores: Risk Factors: DM, Current or recent (<one month) smoker, HTN, HLP, family history of CAD, obesity. Course & Med Decision Making Course & Med Decision Making ABCs unremarkable. I disclosed entirety of ER findings and discussed most likely diagnosis of left anterior knee pain, likely self-limiting and benign in etiology, suspect strain versus strain versus contusion. Other diagnoses were discussed with patient such as meniscus or ligamentous injury but all deemed less likely causes of patient's presentation. Plan of care discussed at length with need for close outpatient follow-up to review today's ER visit stressed. Strict return precautions were also discussed at length with good understanding verbalized by patient. Patient voiced understanding and agreement with the plan. Patient knows to come back for repeat evaluation if concerning signs or symptoms present prior to outpatient follow-up. Hemodynamically stable, ambulatory and well-appearing at time of disposition. Dragon Disclaimer Dragon Disclaimer This electronic medical record was generated, in whole or in part, using a voice recognition dictation system. Departure Departure: Impression: Primary Impression: Left anterior knee pain Disposition: HOME / SELF CARE / HOMELESS Condition: STABLE Referrals: PEDRO PABLO JORDAN MD (PCP) Patient Instructions: Knee Exercises, Generic, SportsMed, RICE - Routine Care for Injuries Additional Instructions: You were seen for musculoskeletal pain to your left anterior knee. You should return to the ED if you develop worsening pain, fever, numbness, tingling, weakness, or any other new or concerning symptoms. Your pain is most likely due to a muscle strain/strain/contusion and should improve with stretching and activity. If it does not improve you should follow up with a primary care doctor. EVELIN NORRIS DO Jun 29, 2021 14:28
--- NOTE | 2021-06-29 14:34 | RAD ---
Exam Date: 06/29/2021 2:21 PM XR KNEE _4 VIEWS WITH PATELLA_LT Indication: Reason: LEFT ANTERIOR KNEE PAIN / Spl. Instructions: / History: . FINDINGS/ IMPRESSION: Small osteophytes are noted. No acute fracture or dislocation. Alignment and joint spaces are maintained. The soft tissues are w ithin normal limits. Electronically signed by: Marcus Brennan MD (06/29/2021 2:31 PM) [facility]
== END 2021-06-29 14:50 | disposition home or self-care (01) ==
LOC: ER 14:00
DX: M25.562 Pain in left knee (principal); E11.9 Type 2 diabetes mellitus without complications; M79.7 Fibromyalgia; K21.9 Gastro-esophageal reflux disease without esophagitis; E78.00 Pure hypercholesterolemia, unspecified; I10 Essential (primary) hypertension; F17.210 Nicotine dependence, cigarettes, uncomplicated; Z87.442 Personal history of urinary calculi; Z87.440 Personal history of urinary (tract) infections; Z88.6 Allergy status to analgesic agent; Z88.1 Allergy status to other antibiotic agents; Z91.013 Allergy to seafood; Z88.8 Allergy status to other drugs, medicaments and biological substances; W18.09XA Striking against other object with subsequent fall, initial encounter; Y93.01 Activity, walking, marching and hiking; Y92.89 Other specified places as the place of occurrence of the external cause; Y99.8 Other external cause status
CPT/HCPCS: 73564; 99283

== ENCOUNTER 2021-06-30 23:10 | Emergency (ER) | payer BC ==
[2021-06-29 14:11] VITALS: BP 109/73
== END 2021-06-30 23:25 | disposition left against medical advice (07) ==
LOC: ER 23:10
DX: R10.9 Unspecified abdominal pain (principal); R73.9 Hyperglycemia, unspecified; Z53.21 Procedure and treatment not carried out due to patient leaving prior to being seen by health care provider

== ENCOUNTER 2021-07-01 04:05 | Emergency (ER) | payer BC ==
[~2021-07-01] VITALS: Ht 165.1 cm; Wt 86.4 kg
--- NOTE | 2021-07-01 04:25 | PHYS DOC ---
Past History Past Medical History: Anxiety, Arthritis, Bipolar, Depression, Diverticulitis, Diabetes, Fibromyalgia, GERD, High Cholesterol, Hypertension, Kidney Stones, UTI, Other Additional Past Medical Histor: RODRIGUEZ (ROGER MILLER DO) Additional Past Surgical Histo: hernia, ankle (ROGER MILLER DO) Smoking: Cigarettes, Less than 1pk/day Alcohol Use: None Drug Use: None (ROGER MILLER DO) General Adult EDM: Chief Complaint: MULTIPLE COMPLAINTS HPI: HPI: 41-year-old female well-known to the emergency department presents with report of acute on chronic abdominal pain which has been ongoing for the past several days. Patient reports some right flank pain and nausea. Denies trauma. Patient was recently seen at [facility] and diagnosed with a UTI. Patient reports compliance with Macrobid with exception for a couple doses. Denies trauma. Denies fever or chills. Denies known sick contacts. Denies known exposure to COVID-19. (ROGER MILLER DO) Review of Systems: Review of Systems: Constitutional: Denies fever or chills Eyes: Denies redness or eye pain HENT: Denies nasal congestion or sore throat Respiratory: Denies cough or shortness of breath Cardiovascular: Denies chest pain or palpitations GI: Reports abdominal pain and nausea; denies vomiting : Reports dysuria and right flank pain Musculoskeletal: Denies back pain or joint pain Integument: Denies rash or skin lesions Neurologic: Denies headache, focal weakness or sensory changes Complete systems were reviewed and found to be within normal limits, except as documented in this note. (ROGER MILLER DO) Allergies: Allergies: Allergies Coded Allergies Type Severity Reaction Last Updated Verified NSAIDS (Non-Steroidal Anti-Inflamma Allergy Intermediate 05/02/21 Yes ketorolac Allergy Intermediate Itching 05/02/21 Yes levofloxacin Allergy Intermediate 05/02/21 Yes shellfish derived Allergy Intermediate Swelling 05/02/21 Yes vancomycin Allergy Intermediate 05/02/21 Yes acetaminophen Adverse Reaction Severe 05/02/21 Yes (ORGER MILLER DO) Physical Exam: PE: Constitutional: Well developed, well nourished, no acute distress, non-toxic appearance HENT: Normocephalic, atraumatic Eyes: PERRL, EOMI, conjunctiva normal, no discharge Neck: Normal range of motion, no tenderness, supple Lungs & Thorax: No respiratory distress, equal chest rise and fall Abdomen: Soft, diffuse tenderness, no guarding/rebound tenderness/distention Skin: Warm, dry, no erythema, no rash Back: No tenderness, right CVA tenderness Extremities: No tenderness, ROM intact, no edema Neurologic: Alert and oriented X 3, no focal deficits noted Psychologic: Affect normal, judgment normal (ROGER MILLER DO) Current Patient Data: Labs: Laboratory Tests Test 07/01/21 04:20 Glucose (Fingerstick) 484 mg/dL (70-99) H (ROGER MILLER DO) EKG: EKG: [] (ROGER MILLER DO) Radiology/Procedures: Radiology/Procedures: [] (ROGER MILLER DO) Radiology/Procedures: PROCEDURE: CT ABDOMEN PELVIS WO CONTRAST EXAM: CT ABDOMEN/PELVIS WITHOUT CONTRAST. HISTORY: Right flank pain and hematuria. TECHNIQUE: Computed tomography of the abdomen and pelvis was performed without intravenous contrast. One or more of the following individualized dose reduction techniques were utilized for this examination: 1. Automated exposure control. 2. Adjustment of the mA and/or kV according to patient size. 3. Use of iterative reconstruction technique. COMPARISON: 05/22/2021. FINDINGS: Lung windows through the visualized portions of the bases reveal mild atelectasis. Bone windows reveal no suspicious lesions. A fat density mass in the left adrenal gland is consistent with a benign myelolipoma and measures 2.6 cm. The gallbladder is surgically absent. The spleen is mildly enlarged at 15 cm. The liver and pancreas are unremarkable. There are no suspicious renal lesions without contrast. There are no renal or ureteral calculi. There is no hydronephrosis. There are no pathologically enlarged lymph nodes. The appendix is not inflamed. The uterus is surgically absent. There is no small bowel obstruction. The stomach contains very radiodense curvilinear material. Small fragments of this extends into the small bowel. IMPRESSION: 1. No renal or ureteral calculi. Recommend ongoing follow-up for hematuria. 2. Mild splenomegaly. 3. 2.6 cm benign left adrenal myelolipoma. 4. Dense curvilinear material within the stomach appears more radiopaque than food. Correlate to exclude a foreign body ingestion. Electronically signed by: Julianne Hines MD (07/01/2021 6:44 AM) (IKER ALMONTE DO) Heart Score: C/O Chest Pain: N/A (ROGER MILLER DO) Course & Med Decision Making: Course & Med Decision Making Pertinent Labs and Imaging studies reviewed. (See chart for details) Patient well-known to the emergency department presents with report of right flank pain and elevated blood sugar. Hyperglycemia addressed. IV fluid hydration provided. Labs obtained and posted to chart. Lactic acid elevated. UA with signs of microscopic hematuria. Patient does report history of recent UTI for which she was on Macrobid. Awaiting CT abdomen/pelvis with pending radiology read. Secondary to hematuria. [id number]-signout given to Dr. Doreen Almonte for further evaluation and final disposition. Discussed current findings and plan with patient, who acknowledges understanding and agreement. (ROGER MILLER DO) Course & Med Decision Making 6 AM 07/01/2021: Assumed care from Dr. Miller at this time Patient's current medical course discussed in rounds and patient is currently updated with medical plan Pending CT scan, reassessment Received call from radiologist regarding the patient CT scan without contrast. There is radiodense material within the stomach, the radiologist is unclear what the material is. I further asked the patient what she has ingested over the last 72 hours which includes a cheeseburger, rolled tacos, macaroni and cheese, her usual medications, and no foreign material or further ingestions. I discussed the case with Dr. Mensah from gastroenterology, based on CT and exam Dr. Mensah believes patient can be discharged home with return precautions. I discussed this with the patient who is in agreement about going home with return precautions including increased pain, nausea and vomiting, intractable symptoms or any acute concern. Abdominal exam is soft, nontender, nondistended and she is feeling better after a dose of morphine in the emergency department. Patient was provided with GI follow-up instructions (IKER ALMONTE DO) Dragon Disclaimer: Dragon Disclaimer: This electronic medical record was generated, in whole or in part, using a voice recognition dictation system. (ROGER MILLER DO) Departure Departure: Impression: Primary Impression: Acute right flank pain Additional Impressions: Chronic abdominal pain Lactic acidosis Hyperglycemia Hematuria Qualified Codes: R31.9 - Hematuria, unspecified Disposition: HOME / SELF CARE / HOMELESS Condition: STABLE Referrals: PEDRO PABLO JORDAN MD (PCP) ROGER MENSAH MD Patient Instructions: Abdominal Pain Additional Instructions: During your Emergency Department visit you had an imaging test performed (for example: an x-ray, CT scan, MRI, or ultrasound). Image tests help your doctors look for problems inside the body that can be dangerous. Sometimes, these image tests show surprising findings. We do not know how these findings will affect your health. In most people, these surprising findings do not cause any health problems. However, in some people, they can be an early health problem that is just starting. We recommend that you talk about these findings with a doctor that can monitor you over time. It is possible, but not likely, that this finding could be the early part of a problem that might affect your long-term health. In your case: - The image test that showed an unexpected finding was: CT scan of the abdomen without contrast - The finding that requires follow-up is: Radiodense material within the stomach - The recommended time you should follow-up with a doctor is: 1 month; return to the emergency department if symptoms worsen or you have any further concerns You were seen in the emergency department for abdominal pain. Your tests did not show any obvious acute cause of your symptoms and your physical exam was non concerning for a dangerous disease process at this time. This however can change early in a disease course. You must return to the ED if you develop any new or worrisome symptoms for another exam. - Make sure to drink plenty of fluids at home - You may take a gentle laxative such as Miralax (over the counter) for bowel comfort. - Avoid drinking alcohol while you are having abdominal pain as this may worsen symptoms. - Return to the ER if you are not able to tolerate water and/or a normal diet, have increased pain or a change in character of your pain, develop a fever (>100.3 F), have nausea, vomiting and/or diarrhea that is unable to be treated at home, pass out, and/or you are not able to perform you normal daily activity. You were referred to a executive coordinator as above, please contact their office to set up a follow-up appointment within 1 to 2 weeks ROGER MILLER DO Jul 01, 2021 04:24 IKER ALMONTE DO Jul 01, 2021 07:35
[2021-07-01] MEDS ORDERED: IV NORMAL SALINE 1,000ML 1,000 ML IV ONE (04:30)
[2021-07-01] MEDS ORDERED: INSULIN REGULAR 100 UNIT/ML 3ML VIAL. SQ ONE (04:30)
[2021-07-01 04:51] LABS: COLOR,URINE RED
[2021-07-01 04:52] LABS: BACTERIA,URINE 0 /HPF (0-FEW); CLARITY,URINE CLOUDY; RBC,URINE >40 /HPF (0-2); SQUAMOUS EPITHELIAL CELL,UR FEW /LPF; WBC,URINE OCC /HPF (0-4)
[2021-07-01 05:06] LABS: BASO # 0.1 x10^3/uL (0.0-0.2); BASO % 1 % (0-3); EOS # 0.1 x10^3/uL (0.0-0.7); EOS % 1 % (0-3); HEMOGLOBIN 12.9 g/dL (12.0-15.5); LYMPH # 1.9 x10^3/uL (1.0-4.8); LYMPH % 24 % (24-48); MEAN CORPUSCULAR HEMOGLOBIN 30 pg (25-35); MEAN CORPUSCULAR HGB CONC 34 g/dL (31-37); MEAN CORPUSCULAR VOLUME 90 fL (79-100); MONO # 0.5 x10^3/uL (0.0-1.1); MONO % 6 % (0-9); NEUT # 5.3 x10^3uL (1.8-7.7); NEUT % 67 % (31-73); PLATELET COUNT 156 x10^3/uL (140-400); RED BLOOD COUNT 4.24 x10^6/uL (3.50-5.40); RED CELL DISTRIBUTION WIDTH 15.9 % (11.5-14.5); WHITE BLOOD COUNT 7.8 x10^3/uL (4.0-11.0)
[2021-07-01 05:14] LABS: PREG TEST PT QUAL NEGATIVE (NEG)
[2021-07-01] MEDS ORDERED: DICYCLOMINE 20 MG/2 ML VIAL. IM ONE (05:15)
[2021-07-01 05:27] LABS: ALBUMIN 3.4 g/dL (3.4-5.0); ALBUMIN/GLOBULIN RATIO 0.9 (1.0-1.7); CALCIUM 8.9 mg/dL (8.5-10.1); CREATININE 0.8 mg/dL (0.6-1.0); MAGNESIUM 1.8 mg/dL (1.8-2.4); POTASSIUM 3.8 mmol/L (3.5-5.1); TOTAL BILIRUBIN 0.4 mg/dL (0.2-1.0); TOTAL PROTEIN 7.1 g/dL (6.4-8.2)
[2021-07-01] MEDS ORDERED: ORPHENADRINE CITRATE 60 MG/2 ML VIAL. IV ONE (05:45)
--- NOTE | 2021-07-01 06:46 | RAD ---
EXAM: CT ABDOMEN/PELVIS WITHOUT CONTRAST. HISTORY: Right flank pain and hematuria. TECHNIQUE: Computed tomography of the abdomen and pelvis was performed without intravenous contrast. One or more of the following individualized dose reduction techniques were utilized for this examinat ion: 1. Automated exposure control. 2. Adjustment of the mA and/or kV according to patient size. 3. Use of iterative reconstruction technique. COMPARISON: 05/22/2021. FINDINGS: Lung windows through the visualized portions of the bases reveal mild atelectasis. Bone win dows reveal no suspicious lesions. A fat density mass in the left adrenal gland is consistent with a benign myelolipoma and measures 2.6 cm. The gallbladder is surgically absent. The spleen is mildly enlarged at 15 cm. The liver and panc reas are unremarkable. There are no suspicious renal lesions without contrast. There are no renal or ureteral calculi. There is no hydronephrosis. There are no pathologically enlarged lymph nodes. The appendix is not inflamed. The uterus is surgica lly absent. There is no small bowel obstruction. The stomach contains very radiodense curvilinear material. Small fragments of this extends into the s mall bowel. IMPRESSION: 1. No renal or ureteral calculi. Recommend ongoing follow-up for hematuria. 2. Mild splenomegaly. 3. 2.6 cm benign left adrenal myelolipoma. 4. Dense curvilinear material within the stomach appears more radiopaque than food. Correlate to excl ude a foreign body ingestion. Electronically signed by: Julianne Hines MD (07/01/2021 6:44 AM) [facility]
[2021-07-01] MEDS ORDERED: MORPHINE SULFATE 4 MG/ML DISP.SYRIN. IV ONE (07:15)
[2021-07-01 08:15] VITALS: BP 121/71
== END 2021-07-01 08:20 | disposition home or self-care (01) ==
LOC: ER 04:05
DX: G89.29 Other chronic pain (principal); R10.84 Generalized abdominal pain; E87.2 Acidosis; R31.9 Hematuria, unspecified; E11.65 Type 2 diabetes mellitus with hyperglycemia; F41.9 Anxiety disorder, unspecified; M19.90 Unspecified osteoarthritis, unspecified site; F31.9 Bipolar disorder, unspecified; M79.7 Fibromyalgia; K21.9 Gastro-esophageal reflux disease without esophagitis; E78.00 Pure hypercholesterolemia, unspecified; I10 Essential (primary) hypertension; F17.210 Nicotine dependence, cigarettes, uncomplicated; Z87.440 Personal history of urinary (tract) infections; Z87.442 Personal history of urinary calculi; Z88.6 Allergy status to analgesic agent; Z88.1 Allergy status to other antibiotic agents; Z88.8 Allergy status to other drugs, medicaments and biological substances; Z91.013 Allergy to seafood
CPT/HCPCS: 36415; 74176; 80053; 81001; 82010; 82947; 83605; 83735; 84703; 85025; 96361; 96372; 96374; 96375; 99285; J0500; J1815; J2270; J2360; J7030

== ENCOUNTER 2021-07-02 17:43 | Emergency (ER) | payer BC ==
[2021-07-01 08:15] VITALS: BP 121/71
[2021-07-02] MEDS ORDERED: ONDANSETRON ODT 4 MG TAB.RAPDIS ONE (18:23)
== END 2021-07-02 18:31 | disposition left against medical advice (07) ==
LOC: ER 18:09
DX: R10.9 Unspecified abdominal pain (principal); Z53.21 Procedure and treatment not carried out due to patient leaving prior to being seen by health care provider
CPT/HCPCS: 82947

== ENCOUNTER 2021-07-06 04:12 | Emergency (ER) | payer BC ==
[~2021-07-06] VITALS: Ht 165.1 cm; Wt 86.4 kg
--- NOTE | 2021-07-06 04:15 | PHYS DOC ---
Past History Past Medical History: Anxiety, Arthritis, Bipolar, Depression, Diverticulitis, Diabetes, Fibromyalgia, GERD, High Cholesterol, Hypertension, Kidney Stones, UTI, Other Additional Past Medical Histor: RODRIGUEZ (RICKIE LAMB MD) Additional Past Surgical Histo: hernia, ankle (RICKIE LAMB MD) Smoking: Cigarettes, Less than 1pk/day Alcohol Use: None Drug Use: None (RICKIE LAMB MD) General Adult HPI: HPI: "...My blood glucose was low at about 0300....so I took my pump off.. ".. I was worried my pump would not turn off... " Patient is a 41 year old female who presents with above hx and complaints low blood glucose levels. Patient is well-known to ED staff with multiple ED visits. Pt. goes by name Griselda as well as Shamar. Currently going by name Shamar because she is back with her . Patient has been to the emergency department 5 times so far this month. With multiple complaints. Does have a history of elopement and left without being seen. Patient frequently has history of hyperglycemia with blood sugars greater than 500-600. On multiple doses of insulin. Patient has history of chronic abdomen pain GERD, irritable bowel syndrome, and noncompliance issues. Patient follows locally with Dr. Jordan. Primary however are at for her RODRIGUEZ disorder and endocrine issues. Pt. has been to [facility] last month for the problems with hyperglycemia. At that time they turned up her basal insulin. Pump was again turned up at on followup from [facility]. Patient has extensive past medical history with nasal repair, tonsillitis, tonsillectomy, adenoidectomy, coronary artery disease and rhythm problems, elevated cholesterol, hypertension, COPD, GERD, sleep apnea, esophageal varices, diverticulitis, pancreatitis, hysterectomy, cholecystectomy, hernia repairs, morbid obesity, GERD, cervical cancer, uterine prolapse, breast reduction, breast implants, kidney stones, UTIs, incontinence, fibromyalgia, diabetes, hypoglycemia episodes, psychiatric problems of bipolar, depression, anxiety, suicide ideation and suicide attempt. Patient has exhibited what appears to be narcotic seeking behavior. Patient has returned to smoking. Patient has multiple allergies primary to nonsteroidals, anti-inflammatories, Toradol, levothyroxine, shellfish, and vancomycin. Patient has completed COVID vaccination on March 182020. No recent travel. No specific ill contacts. No history of trauma. No change in her other baseline meds. Patient's glucose check on arrival here was was 48 . Patient did receive oral glucose and and a Dr. Espinosa. Recheck glucose was 101 after these measures. Patient states she suspects her sugar was low because she has been off her food intake today and yesterday. (RICKIE LAMB MD) Review of Systems: Review of Systems: Constitutional: Denies fever or chills Eyes: Denies change in visual acuity HENT: Denies nasal congestion or sore throat Respiratory: Denies cough or shortness of breath Cardiovascular: Denies chest pain or edema GI: Chronic history of abdominal pain, nausea, and GERD complaints. Patient denies vomiting, bloody stools or diarrhea : Denies dysuria Musculoskeletal: Denies back pain or joint pain Integument: Denies rash Neurologic: Denies headache, focal weakness or sensory changes Endocrine: History of polyuria or polydipsia Lymphatic: Denies swollen glands Psychiatric: History of depression or anxiety (RICKIE LAMB MD) Family History: Family History: Noncontributory to presentation (RICKIE LAMB MD) Current Medications: Current Meds: See nursing for home meds (RICKIE LAMB MD) Allergies: Allergies: Allergies Coded Allergies Type Severity Reaction Last Updated Verified NSAIDS (Non-Steroidal Anti-Inflamma Allergy Intermediate 05/02/21 Yes ketorolac Allergy Intermediate Itching 05/02/21 Yes levofloxacin Allergy Intermediate 05/02/21 Yes shellfish derived Allergy Intermediate Swelling 05/02/21 Yes vancomycin Allergy Intermediate 05/02/21 Yes acetaminophen Adverse Reaction Severe 05/02/21 Yes (RICKIE LAMB MD) Physical Exam: PE: Constitutional: , no acute distress, non-toxic appearance. []HENT: Normocephalic, atraumatic, bilateral external ears normal, oropharynx moist, no oral exudates, nose normal. [] Eyes: PERRLA, EOMI, conjunctiva normal, no discharge. [] Neck: Normal range of motion, no tenderness, supple, no stridor. [] Cardiovascular:Heart rate regular rhythm, no murmur [], PMI to the left. Lungs & Thorax: Bilateral breath sounds equal a\\scattered wheezing on auscultation [] Abdomen: Bowel sounds normal, soft, no tenderness, no masses, no pulsatile masses. Old surgery scars. Obese. Skin: Warm, dry, no erythema, no rash. Tattoos. Back: No tenderness, no CVA tenderness. [] Extremities: No tenderness, no cyanosis, no clubbing, ROM intact, ankle edema. No cording appreciated Neurologic: Alert and oriented X 3, moves all extremities on request, does have distal sensory,, no focal deficits noted. [] Psychologic: Affect anxious, judgement normal, mood normal. [] (RICKIE LAMB MD) EKG: EKG: My interpretation of EKG shows a sinus rhythm at 85 bpm. There is left axis changes. There is a fascicular block. But no findings of acute STEMI of contralateral changes. EKG is similar to her prior EKGs on file. Time of EKG is 0500 hrs. [] (RICKIE LAMB MD) Radiology/Procedures: Radiology/Procedures: [] (RICKIE LAMB MD) Heart Score: C/O Chest Pain: No Risk Factors: Risk Factors: DM, Current or recent (<one month) smoker, HTN, HLP, family history of CAD, obesity. Risk Scores: Score 0 - 3: 2.5% MACE over next 6 weeks - Discharge Home Score 4 - 6: 20.3% MACE over next 6 weeks - Admit for Clinical Observation Score 7 - 10: 72.7% MACE over next 6 weeks - Early Invasive Strategies (RICKIE LAMB MD) Course & Med Decision Making: Course & Med Decision Making Pertinent Labs and Imaging studies reviewed. (See chart for details) Patient to call for follow-up and advisement on management of her insulin pump. Patient follow-up with Dr. Jordan. Patient encouraged to get her flu vaccination which she has not got yet this year. Patient encouraged to stay on her regular consistent diet and take meds at scheduled times. Pt. endorsed to Dr. Melendez at shift change. He will make disposition. Impression: 1. Hypoglycemia. 2. Hx. DM- has insulin pump 3. Hx RODRIGUEZ 4. Tobacco use 5. Hx. of Suspect Narcotic Seeking Behaviors [] (RICKIE LAMB MD) Course & Med Decision Making The patient had an IV placed. She was given a liter of fluid and an amp of D50. Her blood sugar has now improved to 177. It was reported that she turned off her insulin pump at 3 AM, so the effect of insulin should be beginning to wear off. She had a low potassium and was given 40 mEq of potassium in the ER. Patient should follow-up with her insulin pump physician and get further guidance today. She is stable for discharge at this time. (JOSE MELENDEZ DO) Dragon Disclaimer: Dragon Disclaimer: This electronic medical record was generated, in whole or in part, using a voice recognition dictation system. (RICKIE LAMB MD) Departure Departure: Impression: Primary Impression: Hypoglycemia Additional Impression: Hypokalemia Disposition: 01 HOME / SELF CARE / HOMELESS Condition: IMPROVED Referrals: PEDRO PABLO JORDAN MD (PCP) Patient Instructions: Hypoglycemia, [id number] Dragon Disclaimer This chart was dictated in whole or in part using Voice Recognition software in a busy, high-work load, and often noisy Emergency Department environment. It may contain unintended and wholly unrecognized errors or omissions. (RICKIE LAMB MD) RICKIE LAMB MD Jul 06, 2021 04:15 JOSE MELENDEZ DO Jul 06, 2021 08:05
[2021-07-06] MEDS ORDERED: IV RINGERS SOLUTION,LACTATED 1,000 ML IV SCH (05:00)
[2021-07-06] MEDS ORDERED: DEXTROSE ORAL GEL 15 GM TUBE. PO ONE ×2 (05:00→05:30)
[2021-07-06] MEDS ORDERED: ONDANSETRON PF 4 MG/2 ML VIAL. IVP ONE (05:00)
[2021-07-06 05:41] LABS: BARBITURATES NEG (NEG); BENZODIAZEPINES POS (NEG); CANNABINOIDS NEG (NEG); COCAINE NEG (NEG); METHADONE NEG (NEG); OPIATES NEG (NEG); PHENCYCLIDINE NEG (NEG)
[2021-07-06 05:42] LABS: AMPHETAMINE/METHAMPHETAMINE NEG (NEG)
[2021-07-06 06:00] LABS: BACTERIA,URINE FEW /HPF (0-FEW); BILIRUBIN,URINE NEG (NEG); CLARITY,URINE CLEAR; COLOR,URINE YELLOW; GLUCOSE,URINE 100 mg/dL (NEG); NITRITE,URINE NEG (NEG); SQUAMOUS EPITHELIAL CELL,UR FEW /LPF; UROBILINOGEN,URINE 0.2 mg/dL (0.2 mg/dL)
[2021-07-06] MEDS ORDERED: diphenhydrAMINE 50 MG/ML VIAL IM ONE (06:30)
[2021-07-06] MEDS ORDERED: PROCHLORPERAZINE 10 MG/2 ML VIAL. IM ONE (06:30)
--- NOTE | 2021-07-06 06:33 | EKG ---
[address] [address] Test Date: 2021-07-06 Test Time: 05:00:52 Pat Name: SANFORD RANDHAWA Department: Room: Gender: F Retoucher Photoengraving: CARL : 1980 Requested By: RICKIE LAMB Order Number: [id number] Reading MD: Measurements Intervals [place] Rate: 85 P: 39 HI: 158 QRS: -34 QRSD: 90 T: 49 QT: 378 QTc: 455 Interpretive Statements SINUS RHYTHM ABNORMAL LEFT AXIS DEVIATION LEFT ANTERIOR FASCICULAR BLOCK ABNORMAL ECG RI6.02 No previous ECG available for comparison
[2021-07-06 06:57] LABS: BASO # 0.1 x10^3/uL (0.0-0.2); BASO % 1 % (0-3); EOS # 0.2 x10^3/uL (0.0-0.7); EOS % 1 % (0-3); HEMATOCRIT 43.1 % (36.0-47.0); HEMOGLOBIN 14.5 g/dL (12.0-15.5); LYMPH % 25 % (24-48); MEAN CORPUSCULAR HEMOGLOBIN 30 pg (25-35); MEAN CORPUSCULAR HGB CONC 34 g/dL (31-37); MEAN CORPUSCULAR VOLUME 89 fL (79-100); MONO # 1.6 x10^3/uL (0.0-1.1); MONO % 10 % (0-9); NEUT # 10.1 x10^3uL (1.8-7.7); NEUT % 63 % (31-73); PLATELET COUNT 265 x10^3/uL (140-400); RED BLOOD COUNT 4.87 x10^6/uL (3.50-5.40); RED CELL DISTRIBUTION WIDTH 16.3 % (11.5-14.5)
[2021-07-06] MEDS ORDERED: DEXTROSE 50% 25 GM / 50ML DISP.SYRIN. IV ONE (07:00)
[2021-07-06 07:22] LABS: ALBUMIN 3.7 g/dL (3.4-5.0); CALCIUM 9.3 mg/dL (8.5-10.1); CREATININE 0.5 mg/dL (0.6-1.0); DIRECT BILIRUBIN 0.2 mg/dL (0.0-0.2); TOTAL BILIRUBIN 0.7 mg/dL (0.2-1.0); TOTAL PROTEIN 7.5 g/dL (6.4-8.2)
[2021-07-06 07:24] LABS: POTASSIUM 2.9 mmol/L (3.5-5.1)
[2021-07-06] MEDS ORDERED: POTASSIUM CHLORIDE 20 MEQ TABLET.ER. PO ONE (07:30)
[2021-07-06 08:30] VITALS: BP 112/63
[2021-07-06 10:04] LABS: % LYMPHS 30 % (24-48); % MONOS 6 % (0-10); % SEGS 64 % (35-66); PLT ESTIMATE ADEQUATE (ADEQUATE)
== END 2021-07-06 08:43 | disposition home or self-care (01) ==
LOC: ER 04:12
DX: E11.649 Type 2 diabetes mellitus with hypoglycemia without coma (principal); E87.6 Hypokalemia; F41.9 Anxiety disorder, unspecified; M19.90 Unspecified osteoarthritis, unspecified site; F31.9 Bipolar disorder, unspecified; M79.7 Fibromyalgia; K21.9 Gastro-esophageal reflux disease without esophagitis; E78.00 Pure hypercholesterolemia, unspecified; I10 Essential (primary) hypertension; F17.210 Nicotine dependence, cigarettes, uncomplicated; J44.9 Chronic obstructive pulmonary disease, unspecified; Z96.41 Presence of insulin pump (external) (internal); Z87.442 Personal history of urinary calculi; Z87.440 Personal history of urinary (tract) infections
CPT/HCPCS: 36415; 80048; 80076; 80307; 81001; 82550; 82947; 83735; 83880; 84484; 85007; 85025; 93005; 96361; 96372; 96374; 99285; J0780; J1200; J7120

== ENCOUNTER 2021-07-12 18:51 | Emergency (ER) | payer BC ==
[~2021-07-12] VITALS: Ht 165.1 cm; Wt 89.2 kg
[2021-07-12 19:04] VITALS: BP 151/90
[2021-07-12] MEDS ORDERED: INSULIN REGULAR 100 UNIT/ML 3ML VIAL. IV ONE ×2 (19:15→20:45)
[2021-07-12] MEDS ORDERED: METOCLOPRAMIDE HCL 10 MG/2 ML VIAL. IVP ONE (19:15)
[2021-07-12] MEDS ORDERED: IV NORMAL SALINE 1,000ML 1,000 ML IV ONE (19:15)
--- NOTE | 2021-07-12 19:16 | PHYS DOC ---
Past History Past Medical History: Anxiety, Arthritis, Bipolar, Depression, Diverticulitis, Diabetes, Fibromyalgia, GERD, High Cholesterol, Hypertension, Kidney Stones, UTI, Other Additional Past Medical Histor: RODRIGUEZ Past Surgical History: Hysterectomy, Other Additional Past Surgical Histo: hernia, ankle Smoking: Cigarettes, Less than 1pk/day Alcohol Use: None Drug Use: None Adult General Chief Complaint Chief Complaint: HYPERGLYCEMIA HPI HPI Patient is a 41-year-old female well-known to our facility presenting for h yperglycemia. Reports for past 24 hours her fingerstick blood glucose has been greater than 400. She has an insulin pump and is a known type 1.5 diabetic. States she has been bolusing herself with insulin without significant relief in her fingerstick blood glucose levels. She has history of visiting numerous medical facilities, I personally have seen her at multiple facilities in the [place] area in the past week. She also states she is having chronic right upper quadrant and right lower back pain and is requesting pain control. After K tracts review, it appears she received prescription for narcotic pain medication at outlying ER yesterday Review of Systems Review of Systems Fourteen body systems of review of systems have been reviewed. See HPI for pertinent positives and negative responses, other bain all other systems are negative, non-pertinent or non-contributory Allergies Allergies Allergies Coded Allergies Type Severity Reaction Last Updated Verified NSAIDS (Non-Steroidal Anti-Inflamma Allergy Intermediate 05/02/21 Yes ketorolac Allergy Intermediate Itching 05/02/21 Yes levofloxacin Allergy Intermediate 05/02/21 Yes shellfish derived Allergy Intermediate Swelling 05/02/21 Yes vancomycin Allergy Intermediate 05/02/21 Yes acetaminophen Adverse Reaction Severe 05/02/21 Yes Physical Exam Physical Exam Constitutional: Well developed, well nourished, no acute distress, non-toxic appearance. HENT: Normocephalic, atraumatic, bilateral external ears normal, oropharynx moist, no oral exudates, nose normal. Eyes: PERRLA, EOMI, conjunctiva normal, no discharge. Neck: Normal range of motion, no tenderness, supple, no stridor. Cardiovascular: Heart rate regular, sinus rhythm, no murmurs rubs or gallops Lungs & Thorax: Bilateral breath sounds clear to auscultation Abdomen: Bowel sounds normal, soft, no tenderness, no masses, no pulsatile masses. Nonsurgical abdomen, no peritoneal signs Skin: Warm, dry, no erythema, no rash. Back: No midline tenderness, no CVA tenderness. Right-sided lower lumbar pain to palpation with exaggerated response to direct palpation Extremities: No tenderness, no cyanosis, no clubbing, ROM intact, no edema. Neurologic: Alert and oriented X 3, grossly normal motor & sensory function, no focal deficits noted. Psychologic: Odd affect, judgement normal, mood normal. Current Patient Data Vital Signs Vital Signs Date Time Temp Pulse Resp B/P (MAP) Pulse Ox O2 Delivery O2 Flow Rate FiO2 07/12/21 19:04 98.7 113 16 151/90 (110) 99 Room Air Lab Results Laboratory Tests Test 07/12/21 19:17 07/12/21 20:16 White Blood Count 8.2 x10^3/uL Red Blood Count 4.61 x10^6/uL Hemoglobin 13.7 g/dL Hematocrit 41.6 % Mean Corpuscular Volume 90 fL Mean Corpuscular Hemoglobin 30 pg Mean Corpuscular Hemoglobin Concent 33 g/dL Red Cell Distribution Width 16.2 % Platelet Count 183 x10^3/uL Neutrophils (%) (Auto) 66 % Lymphocytes (%) (Auto) 26 % Monocytes (%) (Auto) 7 % Eosinophils (%) (Auto) 1 % Basophils (%) (Auto) 1 % Neutrophils # (Auto) 5.4 x10^3uL Lymphocytes # (Auto) 2.1 x10^3/uL Monocytes # (Auto) 0.5 x10^3/uL Eosinophils # (Auto) 0.1 x10^3/uL Basophils # (Auto) 0.1 x10^3/uL Urine Collection Type Unknown Urine Color Yellow Urine Clarity Hazy Urine pH 5.0 Urine Specific [place] 1.010 Urine Protein Neg Urine Glucose (UA) >=1000 mg/dL Urine Ketones (Stick) Neg mg/dL Urine Blood Neg Urine Nitrite Neg Urine Bilirubin Neg Urine Urobilinogen Dipstick 0.2 mg/dL Urine Leukocyte Esterase Neg Urine RBC Occ /HPF Urine WBC 1-4 /HPF Urine Squamous Epithelial Cells Many /LPF Urine Bacteria 0 /HPF Sodium Level 136 mmol/L Potassium Level 4.2 mmol/L Chloride Level 99 mmol/L Carbon Dioxide Level 28 mmol/L Anion Gap 9 Blood Urea Nitrogen 7 mg/dL Creatinine 0.7 mg/dL Estimated GFR (Cockcroft-Gault) 92.2 BUN/Creatinine Ratio 10 Glucose Level 512 mg/dL Calcium Level 9.3 mg/dL Total Bilirubin 0.4 mg/dL Aspartate Amino Transf (AST/SGOT) 49 U/L Alanine Aminotransferase (ALT/SGPT) 93 U/L Alkaline Phosphatase 119 U/L Troponin I Quantitative < 0.017 ng/mL Total Protein 7.3 g/dL Albumin 3.7 g/dL Albumin/Globulin Ratio 1.0 Urine Opiates Screen Neg Urine Methadone Screen Neg Urine Barbiturates Neg Urine Phencyclidine Screen Neg Urine Amphetamine/Methamphetamine Neg Urine Benzodiazepines Screen Pos Urine Cocaine Screen Neg Urine Cannabinoids Screen Neg Ethyl Alcohol Level < 10 mg/dL Urine Ethyl Alcohol Neg Acetone Level Neg Glucose (Fingerstick) 357 mg/dL Current Medications Medications (Trade) Dose Ordered Sig/Yoko Route PRN Reason Start Time Stop Time Status Last Admin Dose Admin Sodium Chloride 1,000 ml @ 1,000 mls/hr 1X ONCE IV 07/12/21 19:15 07/12/21 20:14 DC 07/12/21 19:29 Insulin Human Regular (HumuLIN R VIAL) 10 unit 1X ONCE IV 07/12/21 19:15 07/12/21 19:23 DC 07/12/21 19:30 Metoclopramide HCl (Reglan Vial) 10 mg 1X ONCE IVP 07/12/21 19:15 07/12/21 19:23 DC 07/12/21 19:30 EKG EKG EKG ordered and interpreted by myself at 1943 hrs. as sinus tachycardia at 108 bpm, unremarkable intervals, left axis deviation, no acute ischemic findings, no STEMI Radiology/Procedures Radiology/Procedures [] Heart Score C/O Chest Pain: No HEART Score for Chest Pain: HEART Score for Chest Pain Response (Comments) Value History Slighlty/Non-Suspicious 0 ECG Normal 0 Age < 45 0 Risk Factors 1 or 2 Risk Factors 1 Troponin < Normal Limit 0 Total 1 Risk Factors: Risk Factors: DM, Current or recent (<one month) smoker, HTN, HLP, family history of CAD, obesity. Risk Scores: Risk Factors: DM, Current or recent (<one month) smoker, HTN, HLP, family history of CAD, obesity. Course & Med Decision Making Course & Med Decision Making Airway patent, breathing unlabored, IV access and vitals obtained concerning for tachycardia only HPI physical exam and comprehensive ER work-up nonconcerning for any emergent or surgical issues Patient hyperglycemic that markedly improved with administered 1 L IV fluid and 10 units IV insulin No indication for hospitalization or transfer at this time. Joint decision made to administer additional 10 units IV insulin and discharge home. She has insulin pump and CGM, she is well educated on her diabetes and knows how to alter her pump and suspend if needed I deferred addressing patient's chronic pain issue as she recently got [place] 5 prescription at outlying facility yesterday. I discussed need for close outpatient follow-up for repeat evaluation and evaluation of hypoglycemic spell today. Strict return precautions were discussed with good understanding by patient, all questions and concerns addressed prior to departure Dragon Disclaimer Dragon Disclaimer This electronic medical record was generated, in whole or in part, using a voice recognition dictation system. Departure Departure: Impression: Primary Impression: Poorly controlled type 2 diabetes mellitus Additional Impressions: Hyperglycemia Chronic pain Disposition: HOME / SELF CARE / HOMELESS Condition: IMPROVED Referrals: PEDRO PABLO JORDAN MD (PCP) Patient Instructions: Hyperglycemia Additional Instructions: You were seen for hyperglycemia. You need to continue taking your insulin/diabetes medications as prescribed and follow up with your primary care doctor as soon as possible. It is important for good glycemic control to reduce the risks of acute and chronic medical problems. Return to the ED if you develop any abdominal pain, vomiting, cough, chest pain, fever, or any other new or c oncerning symptoms. Problem Qualifiers EVELIN NORRIS DO Jul 12, 2021 19:16
[2021-07-12 19:57] LABS: BASO # 0.1 x10^3/uL (0.0-0.2); BASO % 1 % (0-3); EOS # 0.1 x10^3/uL (0.0-0.7); EOS % 1 % (0-3); HEMATOCRIT 41.6 % (36.0-47.0); HEMOGLOBIN 13.7 g/dL (12.0-15.5); LYMPH # 2.1 x10^3/uL (1.0-4.8); LYMPH % 26 % (24-48); MEAN CORPUSCULAR HEMOGLOBIN 30 pg (25-35); MEAN CORPUSCULAR HGB CONC 33 g/dL (31-37); MEAN CORPUSCULAR VOLUME 90 fL (79-100); MONO # 0.5 x10^3/uL (0.0-1.1); MONO % 7 % (0-9); NEUT # 5.4 x10^3uL (1.8-7.7); NEUT % 66 % (31-73); PLATELET COUNT 183 x10^3/uL (140-400); RED BLOOD COUNT 4.61 x10^6/uL (3.50-5.40); RED CELL DISTRIBUTION WIDTH 16.2 % (11.5-14.5); WHITE BLOOD COUNT 8.2 x10^3/uL (4.0-11.0)
[2021-07-12 20:13] LABS: ALBUMIN 3.7 g/dL (3.4-5.0); BARBITURATES NEG (NEG); BENZODIAZEPINES POS (NEG); CALCIUM 9.3 mg/dL (8.5-10.1); CANNABINOIDS NEG (NEG); COCAINE NEG (NEG); CREATININE 0.7 mg/dL (0.6-1.0); GFR 92.2; METHADONE NEG (NEG); OPIATES NEG (NEG); PHENCYCLIDINE NEG (NEG); POTASSIUM 4.2 mmol/L (3.5-5.1); TOTAL BILIRUBIN 0.4 mg/dL (0.2-1.0); TOTAL PROTEIN 7.3 g/dL (6.4-8.2)
[2021-07-12 20:14] LABS: AMPHETAMINE/METHAMPHETAMINE NEG (NEG)
--- NOTE | 2021-07-12 20:27 | EKG ---
[address] [address] Test Date: 2021-07-12 Test Time: 19:34:23 Pat Name: SANFORD RANDHAWA Department: Room: Gender: F Director Of Cardiac Cath Lab: : 1980 Requested By: EVELIN NORRIS Order Number: [id number] Reading MD: Hany Dias Measurements Intervals [place] Rate: 108 P: 31 MI: 150 QRS: -38 QRSD: 86 T: 23 QT: 340 QTc: 459 Interpretive Statements SINUS TACHYCARDIA ABNORMAL LEFT AXIS DEVIATION LEFT ANTERIOR FASCICULAR BLOCK ABNORMAL ECG Electronically Signed On 07-14-2021 13:43:41 CDT by Hany Dias
[2021-07-12 20:28] LABS: BILIRUBIN,URINE NEG (NEG); CLARITY,URINE HAZY; COLOR,URINE YELLOW; GLUCOSE,URINE >=1000 mg/dL (NEG); NITRITE,URINE NEG (NEG); UROBILINOGEN,URINE 0.2 mg/dL (0.2 mg/dL)
[2021-07-12 20:29] LABS: BACTERIA,URINE 0 /HPF (0-FEW); RBC,URINE OCC /HPF (0-2); SQUAMOUS EPITHELIAL CELL,UR MANY /LPF
== END 2021-07-12 20:53 | disposition home or self-care (01) ==
LOC: ER 18:51
DX: E11.65 Type 2 diabetes mellitus with hyperglycemia (principal); G89.29 Other chronic pain; F41.9 Anxiety disorder, unspecified; M19.90 Unspecified osteoarthritis, unspecified site; F31.9 Bipolar disorder, unspecified; E11.9 Type 2 diabetes mellitus without complications; M79.7 Fibromyalgia; K21.9 Gastro-esophageal reflux disease without esophagitis; E78.00 Pure hypercholesterolemia, unspecified; I10 Essential (primary) hypertension; F17.210 Nicotine dependence, cigarettes, uncomplicated; Z87.440 Personal history of urinary (tract) infections; Z87.442 Personal history of urinary calculi; Z90.710 Acquired absence of both cervix and uterus; Z88.6 Allergy status to analgesic agent; Z88.1 Allergy status to other antibiotic agents; Z91.013 Allergy to seafood; Z88.8 Allergy status to other drugs, medicaments and biological substances
CPT/HCPCS: 36415; 80053; 80307; 81001; 82010; 82947; 84484; 85025; 93005; 96361; 96374; 96375; 96376; 99284; G0480; J1815; J2765; J7030

== ENCOUNTER 2021-07-16 22:24 | Emergency (ER) | payer BC ==
[~2021-07-16] VITALS: Ht 165.1 cm; Wt 89.2 kg
[2021-07-16 22:46] VITALS: BP 144/88
[2021-07-17] MEDS ORDERED: DEXTROSE 50% 25 GM / 50ML DISP.SYRIN. IV ONE (00:15)
--- NOTE | 2021-07-17 00:17 | PHYS DOC ---
Past History Past Medical History: Anxiety, Arthritis, Bipolar, Depression, Diverticulitis, Diabetes, Fibromyalgia, GERD, High Cholesterol, Hypertension, Kidney Stones, UTI, Other Additional Past Medical Histor: RODRIGUEZ Past Surgical History: Hysterectomy, Other Additional Past Surgical Histo: hernia, ankle Smoking: Cigarettes, Less than 1pk/day Alcohol Use: None Drug Use: None General Adult EDM: Chief Complaint: HYPOGLYCEMIA HPI: HPI: ".. My blood sugar is reading too low... they have not change my Insulin pump since the last time you seen me... " Patient is a 41 year old female who presents with complaints of hypoglycemia, patient reports that her pump has been alarming that her sugars are too low. Patient initial blood sugar on presenting to the ED is 48. Patient denies any changes in her baseline diet. Patient is well-known to the ED staff with multiple ED evaluations for diabetes complaints and RODRIGUEZ hx. Pt. denies any recent travel. Denies any specific ill contacts. No change in her baseline medications. Patient past medical history of anxiety, asthma, bronchitis, constipation, depression, diabetes poorly controlled, gallstones, GERD, overweight cholesterol, hypertension, kidney stones, pancreatitis, UTIs, chronic pain and noncompliance. Patient only follows for management of her diabetes. Patient follows locally with Dr. French. Review of Systems: Review of Systems: Constitutional: Denies fever or chills Eyes: Denies change in visual acuity HENT: Denies nasal congestion or sore throat Respiratory: Denies cough or shortness of breath Cardiovascular: Denies chest pain or edema GI: Denies abdominal pain, nausea, vomiting, bloody stools or diarrhea : Denies dysuria Musculoskeletal: Denies back pain or joint pain Integument: Denies rash Neurologic: Denies headache, focal weakness or sensory changes Endocrine: Denies polyuria or polydipsia. Complains of hypoglycemia Lymphatic: Denies swollen glands Psychiatric: Denies depression or anxiety Family History: Family History: Hypertension diabetes Current Medications: Current Meds: Current Medications Medications (Trade) Dose Ordered Sig/Yoko Start Time Stop Time Status Last Admin Dose Admin Dextrose (Dextrose 50%-Water Syringe) 25 gm 1X ONCE 07/17/21 00:15 07/17/21 00:16 07/17/21 00:13 25 GM Allergies: Allergies: Allergies Coded Allergies Type Severity Reaction Last Updated Verified NSAIDS (Non-Steroidal Anti-Inflamma Allergy Intermediate 05/02/21 Yes ketorolac Allergy Intermediate Itching 05/02/21 Yes levofloxacin Allergy Intermediate 05/02/21 Yes shellfish derived Allergy Intermediate Swelling 05/02/21 Yes vancomycin Allergy Intermediate 05/02/21 Yes acetaminophen Adverse Reaction Severe 05/02/21 Yes Physical Exam: PE: Constitutional: moderate acute distress, non-toxic appearance. [] HENT: Normocephalic, atraumatic, bilateral external ears normal, oropharynx moist, no oral exudates, nose normal. [] Eyes: PERRLA, EOMI, conjunctiva normal, no discharge. [] Neck: Normal range of motion, no tenderness, supple, no stridor. [] Cardiovascular:Heart rate regular rhythm, no murmur, PMI to the left Lungs & Thorax: Bilateral breath sounds apex with scattered wheezes on auscultation [] Abdomen: Bowel sounds normal, soft, no tenderness, no masses, no pulsatile masses. Obese. Old surgery scars. Skin: Warm, dry, no erythema, no rash. [] Back: No tenderness, no CVA tenderness. [] Extremities: No tenderness, no cyanosis, no clubbing, ROM intact, trace bilateral ankle edema. No cording appreciated. Neurologic: Alert and oriented X 3, moves all extremities on request, does have distal sensory,, no focal deficits noted. [] Psychologic: Affect anxious,, judgement normal, mood normal. [] Current Patient Data: Labs: Laboratory Tests Test 07/16/21 22:32 07/16/21 23:48 Glucose (Fingerstick) 43 mg/dL (70-99) L 48 mg/dL (70-99) L Vital Signs: Vital Signs Date Time Temp Pulse Resp B/P (MAP) Pulse Ox O2 Delivery O2 Flow Rate FiO2 07/16/21 22:46 98.6 84 16 144/88 (106) 98 EKG: EKG: [] Radiology/Procedures: Radiology/Procedures: [] Heart Score: C/O Chest Pain: N/A Risk Factors: Risk Factors: DM, Current or recent (<one month) smoker, HTN, HLP, family history of CAD, obesity. Risk Scores: Score 0 - 3: 2.5% MACE over next 6 weeks - Discharge Home Score 4 - 6: 20.3% MACE over next 6 weeks - Admit for Clinical Observation Score 7 - 10: 72.7% MACE over next 6 weeks - Early Invasive Strategies Course & Med Decision Making: Course & Med Decision Making Pertinent Labs and Imaging studies reviewed. (See chart for details) Patient given oral feedings and supplemental dextrose IV. Patient monitored for several hours in the emergency department blood sugars remain stable. Patient to follow-up with primary care. Patient take home meds as previous directed. Patient return if any concerns. Patient encouraged patient keep follow-up with [facility]. Impression: 1. Hypoglycemia 2. Diabetes 3. RODRIGUEZ hx. 4. Chronic Pain 5. Appears to Exhibit possible narcotic seeking behaviors. [] Dragon Disclaimer: Dragon Disclaimer: This electronic medical record was generated, in whole or in part, using a voice recognition dictation system. Departure Departure: Referrals: PEDRO PABLO FRENCH MD (PCP) Katerine Disclaimer This chart was dictated in whole or in part using Voice Recognition software in a busy, high-work load, and often noisy Emergency Department environment. It may contain unintended and wholly unrecognized errors or omissions. Dragon Disclaimer This chart was dictated in whole or in part using Voice Recognition software in a busy, high-work load, and often noisy Emergency Department environment. It may contain unintended and wholly unrecognized errors or omissions. RICKIE LAMB MD Jul 17, 2021 00:17
[2021-07-17 04:50] LABS: AMPHETAMINE/METHAMPHETAMINE NEG (NEG); BARBITURATES NEG (NEG); BENZODIAZEPINES POS (NEG); CANNABINOIDS NEG (NEG); COCAINE NEG (NEG); METHADONE NEG (NEG); OPIATES NEG (NEG); PHENCYCLIDINE NEG (NEG)
[2021-07-17 04:59] LABS: BILIRUBIN,URINE NEG (NEG); CLARITY,URINE CLEAR; COLOR,URINE YELLOW; GLUCOSE,URINE 250 mg/dL (NEG)
[2021-07-17 05:00] LABS: BACTERIA,URINE FEW /HPF (0-FEW); NITRITE,URINE NEG (NEG); RBC,URINE 0 /HPF (0-2); SQUAMOUS EPITHELIAL CELL,UR FEW /LPF
== END 2021-07-17 05:30 | disposition home or self-care (01) ==
LOC: ER 22:24
DX: E11.649 Type 2 diabetes mellitus with hypoglycemia without coma (principal); K75.81 Nonalcoholic steatohepatitis (NASH); G89.29 Other chronic pain; F17.210 Nicotine dependence, cigarettes, uncomplicated; Z90.710 Acquired absence of both cervix and uterus
CPT/HCPCS: 36415; 80307; 81001; 82947; 96374; 99283-25

== ENCOUNTER 2021-08-04 00:25 | Emergency (ER) | payer BC ==
[~2021-08-04] VITALS: Ht 165.1 cm; Wt 91.3 kg
[~2021-08-04 00:25] MED LIST changes: -CYCL-331 PO; +CYCL10TA19 PO
--- NOTE | 2021-08-04 00:50 | PHYS DOC ---
Past History Past Medical History: Anxiety, Arthritis, Bipolar, Depression, Diverticulitis, Diabetes, Fibromyalgia, GERD, High Cholesterol, Hypertension, Kidney Stones, UTI, Other Additional Past Medical Histor: RODRIGUEZ Past Surgical History: Hysterectomy, Other Additional Past Surgical Histo: hernia, ankle Smoking: Cigarettes, Less than 1pk/day Alcohol Use: None Drug Use: None Adult General HPI HPI Patient is a 41-year-old female, with type 2 diabetes, anxiety, depression, bipolar and fibromyalgia as well as chronic abdominal pain and chronic overall body pain who presents for hyperglycemia. States she has been taking her medicine as prescribed but checked her blood sugar at home and it was 500. Denies any headache, cold/flu/cold symptoms, chest pain, shortness of breath, nausea, vomiting, diarrhea, dysuria, hematuria, blood in the stool. Denies any recent travel, trauma, illnesses or known ill contacts. As usual with her vis its, she complains of total body fatigue and aching, requesting opioid pain medicines. Review of Systems Review of Systems Review of systems otherwise unremarkable except noted in HPI Allergies Allergies Allergies Coded Allergies Type Severity Reaction Last Updated Verified NSAIDS (Non-Steroidal Anti-Inflamma Allergy Intermediate 05/02/21 Yes ketorolac Allergy Intermediate Itching 05/02/21 Yes levofloxacin Allergy Intermediate 05/02/21 Yes shellfish derived Allergy Intermediate Swelling 05/02/21 Yes vancomycin Allergy Intermediate 05/02/21 Yes acetaminophen Adverse Reaction Severe 05/02/21 Yes Physical Exam Physical Exam Constitutional: Well developed, well nourished, no acute distress, non-toxic appearance. [] HENT: Normocephalic, atraumatic, oropharynx moist, no oral exudates, nose normal. [] Eyes: conjunctiva normal, no discharge. [] Neck: Normal range of motion, no tenderness, supple, no stridor. [] Cardiovascular:Heart rate regular rhythm, no murmur [] Lungs & Thorax: Bilateral breath sounds clear to auscultation [] Abdomen: soft, no tenderness, no masses, no pulsatile masses. [] Skin: Warm, dry, no erythema, no rash. [] Back: No tenderness, no CVA tenderness. [] Extremities: No tenderness, no cyanosis, no clubbing, ROM intact, no edema. [] Neurologic: Alert and oriented X 3, normal motor function, normal sensory function, no focal deficits noted. [] Psychologic: Affect normal, judgement normal, mood normal. [] EKG EKG [] Radiology/Procedures Radiology/Procedures [] Heart Score C/O Chest Pain: No Risk Factors: Risk Factors: DM, Current or recent (<one month) smoker, HTN, HLP, family history of CAD, obesity. Risk Scores: Risk Factors: DM, Current or recent (<one month) smoker, HTN, HLP, family history of CAD, obesity. Course & Med Decision Making Course & Med Decision Making Patient is a 41-year-old female presents with chief complaint of hyperglycemia Vital signs not concerning. Physical exam noted above. Blood sugar at 513 with no anion gap, normal creatinine, normal pH and no ketones in the urine. Given pain medicine orally. Does have a glucosuria. EKG noted above and normal. Chest x-ray not concerning. Given small dose of insulin in the ED as well as IV fluid resuscitation. Once again patient complaining of pain as she does frequently without specific etiology stating whole body, requesting opioids. Given Compazine, Benadryl, and Bentyl Dragon Disclaimer Dragon Disclaimer This electronic medical record was generated, in whole or in part, using a voice recognition dictation system. Departure Departure: Impression: Primary Impression: Hyperglycemia Additional Impression: Glucosuria Disposition: HOME / SELF CARE / HOMELESS Condition: IMPROVED Referrals: PEDRO PABLO JORDAN MD (PCP) Patient Instructions: Glucose, Urine, Hyperglycemia Additional Instructions: Thank you for coming into the emergency department tonight and allowing us to take care of you. Please read the attached information carefully to go back over some of the things we discussed. Please be sure to take all your medications as prescribed and to eat an appropriate diabetic diet. Please be sure to stay well-hydrated. Please call your primary care physician in the morning and set up an immediate follow-up visit to discuss management of your diabetes, dose adjustments if needed of any of your medications and discuss chronic pain management. Please come back to the ED with any new or concerning symptoms as we discussed. Problem Qualifiers LUKAS TRAVIS MD Aug 04, 2021 00:50
[2021-08-04] MEDS ORDERED: IV RINGERS SOLUTION,LACTATED 1,000 ML IV ONE (01:00)
[2021-08-04 01:29] LABS: CREATININE 0.8 mg/dL (0.6-1.0); POTASSIUM 4.4 mmol/L (3.5-5.1)
[2021-08-04 01:29] LABS: BILIRUBIN,URINE NEG (NEG); CLARITY,URINE CLEAR; COLOR,URINE YELLOW; GLUCOSE,URINE >=1000 mg/dL (NEG); NITRITE,URINE NEG (NEG); UROBILINOGEN,URINE 0.2 mg/dL (0.2 mg/dL)
[2021-08-04 01:30] LABS: BACTERIA,URINE FEW /HPF (0-FEW); SQUAMOUS EPITHELIAL CELL,UR FEW /LPF
[2021-08-04] MEDS ORDERED: ONDANSETRON PF 4 MG/2 ML VIAL. ONE (01:38)
[2021-08-04] MEDS ORDERED: diphenhydrAMINE 50 MG/ML VIAL ONE (01:38)
[2021-08-04] MEDS ORDERED: DICYCLOMINE HCL 20 MG TABLET ONE (01:39)
[2021-08-04] MEDS ORDERED: PROCHLORPERAZINE 10 MG/2 ML VIAL. ONE (01:39)
[2021-08-04] MEDS ORDERED: ONDANSETRON PF 4 MG/2 ML VIAL. IVP ONE (02:00)
[2021-08-04] MEDS ORDERED: diphenhydrAMINE 50 MG/ML VIAL IVP ONE (02:00)
[2021-08-04] MEDS ORDERED: INSULIN REGULAR 100 UNIT/ML 3ML VIAL. IV ONE (02:00)
[2021-08-04] MEDS ORDERED: PROCHLORPERAZINE 10 MG/2 ML VIAL. IV ONE (02:00)
[2021-08-04] MEDS ORDERED: DICYCLOMINE HCL 20 MG TABLET PO ONE (02:00)
--- NOTE | 2021-08-04 02:34 | EKG ---
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
[2021-08-04] MEDS ORDERED: oxyCODONE IR 5 MG TABLET PO ONE (03:00)
[2021-08-04 03:08] VITALS: BP 122/71
--- NOTE | 2021-08-04 07:12 | RAD ---
XR CHEST 1V Clinical History: Reason: DKA w/u / Spl. Instructions: / History: Technique: AP view of the chest was obtained at 08/04/2021 12:47 AM. Comparison: April 24, 2021. Findings: The heart is normal size. The pulmonary vessels appear normal. There is perihilar linear opacities. T he pleural margins are clear. Impression: Perihilar infiltrates could be \fluid overload or atypical pneumonia. Electronically signed by: Sudeep Middleton III, MD (08/04/2021 7:09 AM) [facility]
== END 2021-08-04 02:58 | disposition home or self-care (01) ==
LOC: ER 00:25
DX: E11.65 Type 2 diabetes mellitus with hyperglycemia (principal); R81 Glycosuria; F41.9 Anxiety disorder, unspecified; M19.90 Unspecified osteoarthritis, unspecified site; F31.9 Bipolar disorder, unspecified; M79.7 Fibromyalgia; K21.9 Gastro-esophageal reflux disease without esophagitis; E78.00 Pure hypercholesterolemia, unspecified; I10 Essential (primary) hypertension; F17.210 Nicotine dependence, cigarettes, uncomplicated; Z87.440 Personal history of urinary (tract) infections; Z87.442 Personal history of urinary calculi; Z90.710 Acquired absence of both cervix and uterus; Z88.6 Allergy status to analgesic agent; Z88.1 Allergy status to other antibiotic agents; Z91.013 Allergy to seafood; Z88.8 Allergy status to other drugs, medicaments and biological substances
CPT/HCPCS: 36415; 71045; 80048; 81001; 82803; 82947; 84484; 93005; 96361; 96374; 96375; 99285; J0780; J1200; J1815; J2405; J7120

== ENCOUNTER 2021-08-07 16:17 | Emergency (ER) | payer BC ==
[~2021-08-07] VITALS: Ht 165.1 cm; Wt 87.8 kg
[2021-08-07 16:25] VITALS: BP 130/88
[2021-08-07] MEDS ORDERED: MUPI15CR8 TP (16:41)
--- NOTE | 2021-08-07 16:42 | PHYS DOC ---
Past History Past Medical History: Anxiety, Arthritis, Bipolar, Depression, Diverticulitis, Diabetes, Fibromyalgia, GERD, High Cholesterol, Hypertension, Kidney Stones, UTI, Other Additional Past Medical Histor: RODRIGUEZ; gastricportal htn; hypobetalipoproteinemia;cervical canc;sleep apnea (ZAHEER ROSEN APRN) Past Surgical History: Cholecystectomy, Hysterectomy, Tonsillectomy, Other Additional Past Surgical Histo: hernia, ankle;stimulator for sleep apnea;breast reduction (ZAHEER ROSEN APRN) Smoking: Cigarettes, Less than 1pk/day Alcohol Use: None Drug Use: None (ZAHEER ROSEN APRN) General Adult HPI: HPI: Patient is a 41-year-old female who presents to the emergency department for a bump to her left side of her scalp that she noticed this morning. She reports that the bump is painful with palpation. She rates it 5 out of 10. No treatment prior to arrival. Patient denies injury, fevers, vision changes, nausea or vomiting. Her primary is Jermain. (ZAHEER ROSEN APRN) Review of Systems: Review of Systems: Constitutional: See HPI Eyes: See HPI HENT: See HPI GI: See HPI Integument: See HPI Neurologic: See HPI (ZAHEER ROSEN APRN) Allergies: Allergies: Allergies Coded Allergies Type Severity Reaction Last Updated Verified NSAIDS (Non-Steroidal Anti-Inflamma Allergy Intermediate 08/04/21 Yes ketorolac Allergy Intermediate Itching 08/04/21 Yes levofloxacin Allergy Intermediate 08/04/21 Yes shellfish derived Allergy Intermediate Swelling 08/04/21 Yes vancomycin Allergy Intermediate 08/04/21 Yes acetaminophen Adverse Reaction Severe 08/04/21 Yes (ZAHEER ROSEN APRN) Physical Exam: PE: Constitutional: Well developed, well nourished, no acute distress, non-toxic appearance. [] HENT: Normocephalic, atraumatic, bilateral external ears normal, oropharynx moist, no oral exudates, nose normal, patient has a 0.5 cm firm papule that is reddened color that is painful with palpation, no streaking, no fluctuance, no drainage this is consistent with acne. [] Eyes: PERRL, EOMI, conjunctiva normal, no discharge. [] Neck: Normal range of motion, no stridor Cardiovascular: Normal peripheral perfusion Lungs & Thorax: Normal work of breathing, no tachypnea Abdomen: Soft and obese Skin: Warm, dry, no erythema, no rash. [] Back: Normal range of motion Extremities: No tenderness, no cyanosis, no clubbing, ROM intact, no edema. [] Neurologic: Alert and oriented X 3, normal motor function, normal sensory function, no focal deficits noted. [] Psychologic: Affect normal, judgement normal, mood normal. [] (ZAHEER ROSEN APRN) EKG: EKG: [] (ZAHEER ROSEN APRN) Radiology/Procedures: Radiology/Procedures: [] (ZAHEER ROSEN APRN) Heart Score: C/O Chest Pain: N/A Risk Factors: Risk Factors: DM, Current or recent (<one month) smoker, HTN, HLP, family history of CAD, obesity. Risk Scores: Score 0 - 3: 2.5% MACE over next 6 weeks - Discharge Home Score 4 - 6: 20.3% MACE over next 6 weeks - Admit for Clinical Observation Score 7 - 10: 72.7% MACE over next 6 weeks - Early Invasive Strategies (ZAHEER ROSEN APRN) Course & Med Decision Making: Course & Med Decision Making Pertinent Labs and Imaging studies reviewed. (See chart for details) [] Patient presents to the emergency department for a bump on the left side of her scalp. Patient denies any injury. She states that she noticed it this morning. Lesion is tender. Upon physical exam, it appears that patient has a circular papule to her left scalp consistent with acne. Patient advised to apply warm compresses and follow-up with her primary care provider as patient states that she does not take Tylenol or ibuprofen for pain. advised that she can apply mupirocin cream if needed-rx given. I discussed with patient all findings and diagnostic testing as well as the need to follow-up with PCP for further evaluation and treatment or return to the ER if any new or worsening symptoms. Strict return precautions were also discussed at length. Patient voiced understanding and agreement with the plan. Patient is hemodynamically stable at the time of disposition. (ZAHEER ROSEN APRN) Dragon Disclaimer: Dragon Disclaimer: This electronic medical record was generated, in whole or in part, using a voice recognition dictation system. (ZAHEER ROSEN APRN) Attending Co-Sign The patient was seen and interviewed as well as examined at the bedside. The chart was reviewed. The case was discussed. Agree with the plan of care. (JOSE MELENDEZ DO) Departure Departure: Impression: Primary Impression: Acne vulgaris Disposition: HOME / SELF CARE / HOMELESS Condition: GOOD Referrals: PEDRO PABLO JORDAN MD (PCP) Patient Instructions: Folliculitis Additional Instructions: You are seen in the emergency department for a bump to the left side of your scalp that was painful. It appears that the wound is a pimple or folliculitis. You can apply warm compresses. Make sure that you keep the area clean. You can apply an antibiotic ointment to the area such as mupirocin cream. You are being discharged home with this medication that you can use 3 times a day for 5 to 7 days. Follow-up with your primary care provider on Tuesday if your still having pain. Return to the emergency department if you develop worsening of your pain, high fevers refractory to treatment, intractable nausea or vomiting or any new or worsening concerns. EMERGENCY DEPARTMENT GENERAL DISCHARGE INSTRUCTIONS Thank you for coming to [facility] (ED) today and trusting us with you care. We trust that you had a positivie experience in our Emergency Department. If you wish to speak to the department management, you may call the director at [phone]. YOUR FOLLOW UP INSTRUCTIONS ARE FOLLOWS: 1. Do you have a private Doctor? If you do not have a private doctor, please ask for a resource list of physicians or clinics that may be able to assist you with follow up care. 2. The Emergency Physician has interpreted your x-rays. The X-Ray specialist will also review them. If there is a change in the findings, you will be notified in 48 hours when at all possible. 3. A lab test or culture has been done, your results will be reviewed and you will be notified if you need a change in treatment. ADDITIONAL INSTRUCTIONS AND INFORMATION: 1. Your care today has been supervised by a physician who is specially trained in emergency care. Many problems require more than one evaluation for a complete diagnosis and treatment. We recommend that you schedule your follow up appointment as recommended to ensure complete treatment of you illness or injury. If you are unable to obtain follow up care and continue to have a problem, or if your condition worsens, we recommend that you return to the ED. 2. We are not able to safely determine your condition over the phone nor are we able to give sound medical advice over the phone. For these safety reasons, if you call for medical advice we will ask you to come to the ED for further evaluation. 3. If you have any questions regarding these discharge instructions please call the ED at [phone]. SAFETY INFORMATION: In the interest of safety, wellness, and injury prevention; we encourage you to wear your sealbelt, if you smoke; quite smoking, and we encourage family to use a protective helmet for bicycling and other sporting events that present an increased risk for head injury. IF YOUR SYMPTOMS WORSEN OR NEW SYMPTOMS DEVELOP, OR YOU HAVE CONCERNS ABOUT YOUR CONDITION; OR IF YOUR CONDITION WORSENS WHILE YOU ARE WAITING FOR YOUR FOLLOW UP APPOINTMENT; EITHER CONTACT YOUR PRIMARY CARE DOCTOR, THE PHYSICIAN WHOSE NAME AND NUMBER YOU WERE GIVEN, OR RETURN TO THE ED IMMEDIATELY. Scripts Mupirocin Calcium (MUPIROCIN) 15 Gm Cream..g. 1 ALEJANDRA TP TID for folliculitis for 7 Days, #30 GM 0 Refills Prov: ZAHEER ROSEN APRN 08/07/21 ZAHEER ROSEN APRN Aug 07, 2021 16:42 JOSE MELENDEZ DO Aug 07, 2021 17:43
== END 2021-08-07 16:58 | disposition home or self-care (01) ==
LOC: ER 16:17
DX: L70.0 Acne vulgaris (principal); K21.9 Gastro-esophageal reflux disease without esophagitis; E78.5 Hyperlipidemia, unspecified; I10 Essential (primary) hypertension; F17.210 Nicotine dependence, cigarettes, uncomplicated; Z90.49 Acquired absence of other specified parts of digestive tract; Z88.1 Allergy status to other antibiotic agents; Z90.710 Acquired absence of both cervix and uterus; Z87.442 Personal history of urinary calculi
CPT/HCPCS: 99283-25

== ENCOUNTER 2021-08-25 22:52 | Emergency (ER) | payer BC ==
[~2021-08-25] VITALS: Ht 165.1 cm; Wt 87.8 kg
[~2021-08-25 22:52] MED LIST changes: +MUPI15CR8 TP
--- NOTE | 2021-08-25 22:53 | PHYS DOC ---
Past History Past Medical History: Anxiety, Arthritis, Bipolar, Depression, Diverticulitis, Diabetes, Fibromyalgia, GERD, High Cholesterol, Hypertension, Kidney Stones, UTI, Other Additional Past Medical Histor: RODRIGUEZ; gastricportal htn; hypobetalipoproteinemia;cervical canc;sleep apnea Past Surgical History: Cholecystectomy, Hysterectomy, Tonsillectomy, Other Additional Past Surgical Histo: hernia, ankle;stimulator for sleep apnea;breast reduction Smoking: Cigarettes, Less than 1pk/day Alcohol Use: None Drug Use: None General Adult HPI: HPI: " .. My sugars are high.. and having some abdomen pain... I had pancreatitis last week.... I was at [facility] Patient is a 41 year old female who presents with above hx and complaints of hyperglycemia. Patient is well-known to the emergency department. Has had multiple evaluations for hyperglycemia and abdomen pain. Patient has longstanding diagnosis of RODRIGUEZ. Patient still has her insulin pump and no recent changes of its settings. Does follow locally with Dr. Jordan, but follows at for her RODRIGUEZ complications. Patient has extensive medical history with past nasal repair tonsillitis, tonsillectomy adenoidectomy cardiac problems hypercholesterol, hypertension, COPD, GERD, sleep apnea, esophageal varices, diverticulitis, pancreatitis, hy sterectomy, cholecystectomy, hernia repair, obesity, GERD, cervical cancer, uterine prolapse, history of breast reduction, history of breast implants, hysterectomy, kidney stones, urinary tract infections, incontinence, fibromyalgia, endocrine abnormalities including chronic diabetes with insulin pump, hypoglycemia, psychiatric problems of bipolar, depression, anxiety, previous suicidal attempt, patient has past history of tobacco use, and has had smoking cessation but however continues to smoke. History of chronic abdomen pain and constipation. Inability to cope with ADLs, history of cervical cancer, patient is up-to-date with Covid vaccinations. Has not had flu vaccination this season. Pt. insulin pump and diabetes in managed through . Patient has long history of drug-seeking behaviors. Patient denies any recent trauma. No history immunosuppression other than her underlying diabetes. No history of trauma. Did get both Covid vaccinations. Patient states she had normal stools today. Patient's abdomen pain is localized and left upper quadrant. Patient advises that her pain for her pancreatitis episode last week at [facility] was more central and radiated to her back. Review of Systems: Review of Systems: Constitutional: Denies fever or chills Eyes: Denies change in visual acuity HENT: Denies nasal congestion or sore throat Respiratory: Denies cough or shortness of breath Cardiovascular: Denies chest pain or edema GI: Complains of abdominal pain, nausea,. Denies vomiting, bloody stools or diarrhea : Denies dysuria Musculoskeletal: Denies back pain or joint pain Integument: Denies rash Neurologic: Denies headache, focal weakness or sensory changes Endocrine: Denies polyuria or polydipsia. Complains of hyperglycemia Lymphatic: Denies swollen glands Psychiatric: Denies depression or anxiety Family History: Family History: Noncontributory to presentation Current Medications: Current Meds: See nursing for home meds Allergies: Allergies: Allergies Coded Allergies Type Severity Reaction Last Updated Verified NSAIDS (Non-Steroidal Anti-Inflamma Allergy Intermediate 08/04/21 Yes ketorolac Allergy Intermediate Itching 08/04/21 Yes levofloxacin Allergy Intermediate 08/04/21 Yes shellfish derived Allergy Intermediate Swelling 08/04/21 Yes vancomycin Allergy Intermediate 08/04/21 Yes acetaminophen Adverse Reaction Severe 08/04/21 Yes Physical Exam: PE: Constitutional: Moderate acute distress, non-toxic appearance. [] HENT: Normocephalic, atraumatic, bilateral external ears normal, oropharynx dry,, no oral exudates, nose normal. [] Eyes: PERRLA, EOMI, conjunctiva normal, no discharge. [] Neck: Normal range of motion, no tenderness, supple, no stridor. [] Cardiovascular:Heart rate regular rhythm, no murmur [] Lungs & Thorax: Bilateral breath sounds to apex on auscultation [] pacer right. Abdomen: Bowel sounds normal, soft, left upper quadrant tenderness, no masses, no pulsatile masses. Very distended distended. Obese. Multiple old surgical scars. Insulin pump. Mild rebound to left upper quadrant. Abdomen is distended. Pump left upper Skin: Warm, dry, no erythema, no rash. [] Back: No tenderness, no CVA tenderness. [] Extremities: No tenderness, no cyanosis, no clubbing, ROM intact, trace bilateral ankle edema. [] No cording appreciated. Neurologic: Alert and oriented X 3, normal motor function, normal sensory function, no focal deficits noted. [] Psychologic: Affect anxious, judgement normal, mood normal. [] EKG: EKG: My interpretation EKG shows sinus tachycardia 105 bpm. Mild leftward axis. No findings of acute STEMI or contralateral changes. There is a wavering baseline. Overall morphology is similar to prior EKGs on file. [] Radiology/Procedures: Radiology/Procedures: [][[[address] [id number] IMAGING REPORT Signed PATIENT: SANFORD RANDHAWA ACCOUNT: [id number] : 1980 LOCATION: ER AGE: 41 SEX: F EXAM STATUS: REG ER ORD. PHYSICIAN: RICKIE LAMB MD REASON: abdomen pain PROCEDURE: ACUTE ABDOMEN SERIES Acute Abdominal Series: Technique: PA view of the chest and supine and upright views of the abdomen were obtained. History: Pain. Comparison: None. Findings: The lungs and pleural margins are clear. There is air and stool scattered the colon. There is a paucity small bowel gas. There is no free air. Impression: Mild constipation versus colonic ileus. Electronically signed by: Jessica Bain III, MD (08/26/2021 12:14 AM) [facility] DICTATED AND SIGNED BY: JESSICA BAIN III, MD DATE: 08/26/2112 CC: PEDRO PABLO JORDAN MD; RICKIE LAMB MD ~MTH0 0 Heart Score: C/O Chest Pain: N/A HEART Score for Chest Pain: HEART Score for Chest Pain Response (Comments) Value History Moderately Suspicious 1 ECG Nonspecific Repolarizatio 1 Age < 45 0 Risk Factors 1 or 2 Risk Factors 1 Troponin < Normal Limit 0 Total 3 Risk Factors: Risk Factors: DM, Current or recent (<one month) smoker, HTN, HLP, family history of CAD, obesity. Risk Scores: Score 0 - 3: 2.5% MACE over next 6 weeks - Discharge Home Score 4 - 6: 20.3% MACE over next 6 weeks - Admit for Clinical Observation Score 7 - 10: 72.7% MACE over next 6 weeks - Early Invasive Strategies Course & Med Decision Making: Course & Med Decision Making Pertinent Labs and Imaging studies reviewed. (See chart for details) Patient sleeping majority of time while in the ED. Pt. remain in ED asleep majority of time. Pt. to follow up with Dr. Jordan and [facility]. Impression: 1. Abdomen pain 2. Hyperglycemia 592 to 517, to 403 to 302, Discharge at 168. 3. Dietary noncompliance 4. Drug-seeking behaviors 5. History of RODRIGUEZ 6. Mild Elevations of AST / ALt 51/88 7. Constipation 8. Appears to exhibit Narcotic Seeking Behaviors [] Dragon Disclaimer: Dragon Disclaimer: This electronic medical record was generated, in whole or in part, using a voice recognition dictation system. Departure Departure: Referrals: PEDRO PABLO JORDAN MD (PCP) RICKIE LAMB MD Aug 25, 2021 22:53
[2021-08-25] MEDS ORDERED: IV RINGERS SOLUTION,LACTATED 1,000 ML IV SCH (23:15)
[2021-08-25] MEDS ORDERED: ONDANSETRON PF 4 MG/2 ML VIAL. IVP ONE (23:15)
[2021-08-25] MEDS ORDERED: IV NORMAL SALINE 1,000ML 1,000 ML IV ONE (23:15)
[2021-08-25] MEDS ORDERED: FAMOTIDINE 20 MG/2 ML VIAL IVP ONE (23:15)
[2021-08-26 00:16] LABS: BASO # 0.1 x10^3/uL (0.0-0.2); BASO % 1 % (0-3); EOS # 0.1 x10^3/uL (0.0-0.7); EOS % 1 % (0-3); HEMATOCRIT 39.7 % (36.0-47.0); HEMOGLOBIN 13.1 g/dL (12.0-15.5); LYMPH # 2.5 x10^3/uL (1.0-4.8); LYMPH % 30 % (24-48); MEAN CORPUSCULAR HEMOGLOBIN 29 pg (25-35); MEAN CORPUSCULAR HGB CONC 33 g/dL (31-37); MEAN CORPUSCULAR VOLUME 88 fL (79-100); MONO # 0.4 x10^3/uL (0.0-1.1); MONO % 5 % (0-9); NEUT # 5.3 x10^3uL (1.8-7.7); NEUT % 63 % (31-73); PLATELET COUNT 174 x10^3/uL (140-400); RED BLOOD COUNT 4.52 x10^6/uL (3.50-5.40); RED CELL DISTRIBUTION WIDTH 16.1 % (11.5-14.5); WHITE BLOOD COUNT 8.3 x10^3/uL (4.0-11.0)
--- NOTE | 2021-08-26 00:17 | RAD ---
Acute Abdominal Series: Technique: PA view of the chest and supine and upright views of the abdomen were obtained. History: Pain. Comparison: None. Findings: The lungs and pleural margins are clear. There is air and stool scattered the colon. There is a pauci ty small bowel gas. There is no free air. Impression: Mild constipation versus colonic ileus. Electronically signed by: Sudeep Middleton III, MD (08/26/2021 12:14 AM) [facility]
[2021-08-26 00:28] LABS: BARBITURATES NEG (NEG); BENZODIAZEPINES POS (NEG); CANNABINOIDS NEG (NEG); COCAINE NEG (NEG); METHADONE NEG (NEG); OPIATES NEG (NEG); PHENCYCLIDINE NEG (NEG)
[2021-08-26 00:31] LABS: CLARITY,URINE CLEAR; COLOR,URINE YELLOW; GLUCOSE,URINE >=1000 mg/dL (NEG)
[2021-08-26 00:32] LABS: BACTERIA,URINE 0 /HPF (0-FEW); BILIRUBIN,URINE NEG (NEG); NITRITE,URINE NEG (NEG); RBC,URINE 0 /HPF (0-2); SQUAMOUS EPITHELIAL CELL,UR FEW /LPF; UROBILINOGEN,URINE 0.2 mg/dL (0.2 mg/dL); WBC,URINE RARE /HPF (0-4)
[2021-08-26 00:33] LABS: ALBUMIN 3.6 g/dL (3.4-5.0); CALCIUM 9.6 mg/dL (8.5-10.1); CREATININE 0.9 mg/dL (0.6-1.0); DIRECT BILIRUBIN 0.2 mg/dL (0.0-0.2); POTASSIUM 4.1 mmol/L (3.5-5.1); TOTAL BILIRUBIN 0.3 mg/dL (0.2-1.0); TOTAL PROTEIN 7.2 g/dL (6.4-8.2)
[2021-08-26 00:34] LABS: AMPHETAMINE/METHAMPHETAMINE NEG (NEG)
[2021-08-26] MEDS: traMADol 50 MG TABLET PO ONE ×2 (01:45→01:55)
[2021-08-26] MEDS ORDERED: MAGNESIUM HYDROXIDE 2,400 MG/30 ML ORAL.SUSP. PO ONE (02:15)
[2021-08-26] MEDS ORDERED: INSULIN REGULAR 100 UNIT/ML 3ML VIAL. IV ONE (02:30)
[2021-08-26 04:11] VITALS: BP 112/66
--- NOTE | 2021-08-26 07:38 | EKG ---
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
== END 2021-08-26 04:10 | disposition home or self-care (01) ==
LOC: ER 22:52
DX: E11.65 Type 2 diabetes mellitus with hyperglycemia (principal); K59.00 Constipation, unspecified; R79.89 Other specified abnormal findings of blood chemistry; F41.9 Anxiety disorder, unspecified; M19.90 Unspecified osteoarthritis, unspecified site; F31.9 Bipolar disorder, unspecified; M79.7 Fibromyalgia; K21.9 Gastro-esophageal reflux disease without esophagitis; E78.00 Pure hypercholesterolemia, unspecified; I10 Essential (primary) hypertension; F17.210 Nicotine dependence, cigarettes, uncomplicated; Z91.11 Patient's noncompliance with dietary regimen; Z76.5 Malingerer [conscious simulation]; Z87.440 Personal history of urinary (tract) infections; Z87.442 Personal history of urinary calculi; Z90.49 Acquired absence of other specified parts of digestive tract; Z90.710 Acquired absence of both cervix and uterus; Z88.6 Allergy status to analgesic agent; Z88.8 Allergy status to other drugs, medicaments and biological substances; Z88.1 Allergy status to other antibiotic agents; Z91.013 Allergy to seafood
CPT/HCPCS: 36415; 74022; 80048; 80076; 80307; 81001; 82150; 82550; 82947; 83690; 84484; 85025; 93005; 96361; 96374; 96375; 99285; J1815; J2405; J3490; J7030; J7120

== ENCOUNTER 2021-09-14 00:20 | Emergency (ER) | payer BC ==
[~2021-09-14] VITALS: Ht 165.1 cm; Wt 87.8 kg
[2021-09-14 00:28] VITALS: BP 124/71
[2021-09-14] MEDS ORDERED: IV RINGERS SOLUTION,LACTATED 1,000 ML IV ONE (01:00)
[2021-09-14] MEDS ORDERED: DICYCLOMINE HCL 20 MG TABLET PO ONE (01:00)
[2021-09-14] MEDS ORDERED: diphenhydrAMINE HCL 25 MG CAPSULE PO ONE (01:00)
--- NOTE | 2021-09-14 01:00 | PHYS DOC ---
Past History Past Medical History: Anxiety, Arthritis, Bipolar, Depression, Diverticulitis, Diabetes, Fibromyalgia, GERD, High Cholesterol, Hypertension, Kidney Stones, UTI, Other Additional Past Medical Histor: RODRIGUEZ; gastricportal htn; hypobetalipoproteinemia;cervical canc;sleep apnea Past Surgical History: Cholecystectomy, Hysterectomy, Tonsillectomy, Other Additional Past Surgical Histo: hernia, ankle;stimulator for sleep apnea;breast reduction Smoking: Cigarettes, Less than 1pk/day Alcohol Use: None Drug Use: None Adult General Chief Complaint Chief Complaint: HYPERGLYCEMIA HPI HPI Patient is a 41-year-old female with a past medical history of insulin-dependent diabetes, anxiety, depression, bipolar, fibromyalgia who presents with a chief complaint of hyperglycemia and low back pain. States that she has had chronic low back pain for years and took hydrocodone before coming which only helped a little. States she had hyperglycemia at home around 500. States he is taking all her medications as prescribed. Denies any recent traumas, travels, illnesses, fever, chest pain, shortness of breath, abdominal pain, nausea, vomiting, diarrhea, dysuria, hematuria or blood in the stool. States she has been thirsty and has been urinating frequently. Review of Systems Review of Systems Review of systems otherwise unremarkable except noted in HPI Current Medications Current Medications Current Medications Medications (Trade) Dose Ordered Sig/Yoko Start Time Stop Time Status Last Admin Dose Admin Dicyclomine HCl (Bentyl) 20 mg 1X ONCE 09/14/21 01:00 09/14/21 01:01 Diphenhydramine HCl (Benadryl) 25 mg 1X ONCE 09/14/21 01:00 09/14/21 01:01 Lactated Ringer's 1,000 ml @ 1,000 mls/hr 1X ONCE 09/14/21 01:00 09/14/21 01:59 Allergies Allergies Allergies Coded Allergies Type Severity Reaction Last Updated Verified NSAIDS (Non-Steroidal Anti-Inflamma Allergy Intermediate 09/14/21 Yes ketorolac Allergy Intermediate Itching 09/14/21 Yes levofloxacin Allergy Intermediate 09/14/21 Yes shellfish derived Allergy Intermediate Swelling 09/14/21 Yes vancomycin Allergy Intermediate 09/14/21 Yes acetaminophen Adverse Reaction Severe 09/14/21 Yes Physical Exam Physical Exam Constitutional: Well developed, well nourished, no acute distress, non-toxic appearance. [] HENT: Normocephalic, atraumatic, bilateral external ears normal, oropharynx moist, no oral exudates, nose normal. [] Eyes: conjunctiva normal, no discharge. [] Neck: Normal range of motion, no tenderness, supple, no stridor. [] Cardiovascular: Sinus tachycardia Lungs & Thorax: Bilateral breath sounds clear to auscultation [] Abdomen: soft, no tenderness, no masses, no pulsatile masses. [] Skin: Warm, dry, no erythema, no rash. [] Back: no CVA tenderness. [] Extremities: No tenderness, no cyanosis, no clubbing, ROM intact, no edema. [] Neurologic: Alert and oriented X 3, no focal deficits noted. [] Psychologic: Affect normal, judgement normal, mood normal. [] Current Patient Data Vital Signs Vital Signs Date Time Temp Pulse Resp B/P (MAP) Pulse Ox O2 Delivery O2 Flow Rate FiO2 09/14/21 00:28 98.1 107 18 124/71 (88) 99 Room Air Lab Results Laboratory Tests Test 09/14/21 00:28 Glucose (Fingerstick) 509 mg/dL (70-99) *H EKG EKG [] Radiology/Procedures Radiology/Procedures [] Heart Score C/O Chest Pain: No Risk Factors: Risk Factors: DM, Current or recent (<one month) smoker, HTN, HLP, family history of CAD, obesity. Risk Scores: Risk Factors: DM, Current or recent (<one month) smoker, HTN, HLP, family history of CAD, obesity. Course & Med Decision Making Course & Med Decision Making Patient is a 41-year-old female with diabetes who presents with hyperglycemia and chronic low back pain Vital signs notable for borderline sinus tachycardia. Physical exam noted above. Blood sugar greater than 500. Discussed all findings with patient and concerns for either DKA and ruling out WI. EKG with a rate of 106, QRS of 84, QTc of 448, no STEMI. Blood gas not acidemic. No ketones in the urine. Urinalysis also contaminated and patient is having no urinary symptoms. After IV fluid, Benadryl and Bentyl patient's blood sugar less than 400. Discussed these findings with patient and offered continued IV fluid resuscitation but patient stated she was feeling better was ready to be discharged home. Advised to follow-up in the morning with primary care physician. Gave return precautions to the ED. Patient grateful, verbalized understanding and agreed with plan of discharge. [] Dragon Disclaimer Dragon Disclaimer This electronic medical record was generated, in whole or in part, using a voice recognition dictation system. Departure Departure: Impression: Primary Impression: Hyperglycemia Disposition: HOME / SELF CARE / HOMELESS Condition: IMPROVED Referrals: PEDRO PABLO JORDAN MD (PCP) Patient Instructions: Hyperglycemia Additional Instructions: Thank you for coming into the emergency department tonight and allowing us to take care of you. Please read the attached information carefully to go back over some of the things we discussed. Please be sure to monitor your blood sugar 3 times a day, taken your insulin as prescribed by your primary care physician and staying well-hydrated. Please adjust your diet as we discussed. Please follow-up in the morning with your primary care physician to discuss your ED visit and set up a follow-up as soon as possible. Please come back with new or concerning symptoms as we discussed. LUKAS TRAVIS MD Sep 14, 2021 01:00
[2021-09-14 01:50] LABS: CLARITY,URINE CLEAR; COLOR,URINE YELLOW
[2021-09-14 01:51] LABS: BACTERIA,URINE MANY /HPF (0-FEW); BILIRUBIN,URINE NEG (NEG); GLUCOSE,URINE >=1000 mg/dL (NEG); NITRITE,URINE POS (NEG); SQUAMOUS EPITHELIAL CELL,UR MANY /LPF; UROBILINOGEN,URINE 0.2 mg/dL (0.2 mg/dL)
[2021-09-14 01:52] LABS: HYALINE CASTS, URINE OCC /HPF
--- NOTE | 2021-09-14 03:26 | EKG ---
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
== END 2021-09-14 02:37 | disposition home or self-care (01) ==
LOC: ER 00:20
DX: E11.65 Type 2 diabetes mellitus with hyperglycemia (principal); G89.29 Other chronic pain; F41.9 Anxiety disorder, unspecified; M19.90 Unspecified osteoarthritis, unspecified site; F31.9 Bipolar disorder, unspecified; M79.7 Fibromyalgia; K21.9 Gastro-esophageal reflux disease without esophagitis; E78.00 Pure hypercholesterolemia, unspecified; I10 Essential (primary) hypertension; F17.210 Nicotine dependence, cigarettes, uncomplicated; Z87.442 Personal history of urinary calculi; Z87.440 Personal history of urinary (tract) infections; Z90.49 Acquired absence of other specified parts of digestive tract; Z90.710 Acquired absence of both cervix and uterus; Z88.6 Allergy status to analgesic agent; Z88.1 Allergy status to other antibiotic agents; Z91.013 Allergy to seafood; Z88.8 Allergy status to other drugs, medicaments and biological substances
CPT/HCPCS: 36415; 81001; 82803; 82947; 84484; 87086; 93005; 96360; 99284; J7120; Q0163; 87077; 87186

== ENCOUNTER 2021-09-15 13:50 | Emergency (ER) | payer BC ==
[2021-09-14 00:28] VITALS: BP 124/71
--- NOTE | 2021-09-15 14:27 | EKG ---
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
== END 2021-09-15 16:05 | disposition left against medical advice (07) ==
LOC: ER 13:50
DX: R73.9 Hyperglycemia, unspecified (principal); R07.89 Other chest pain; M54.89 Other dorsalgia; Z53.21 Procedure and treatment not carried out due to patient leaving prior to being seen by health care provider
CPT/HCPCS: 93005

== ENCOUNTER 2021-09-24 00:59 | Emergency (ER) | payer BC ==
[~2021-09-24] VITALS: Ht 165.1 cm; Wt 91.6 kg
[2021-09-24 01:30] VITALS: BP 130/84
== END 2021-09-24 02:30 | disposition left against medical advice (07) ==
LOC: ER 00:59
DX: R73.9 Hyperglycemia, unspecified (principal); Z53.21 Procedure and treatment not carried out due to patient leaving prior to being seen by health care provider
CPT/HCPCS: 82947

== ENCOUNTER 2021-10-17 21:59 | Emergency (ER) | payer BC ==
[~2021-10-17] VITALS: Ht 165.1 cm; Wt 91.6 kg
[2021-10-18] MEDS ORDERED: IV RINGERS SOLUTION,LACTATED 1,000 ML IV ONE (00:45)
[2021-10-18] MEDS ORDERED: DICYCLOMINE HCL 10 MG CAPSULE PO ONE (00:45)
[2021-10-18] MEDS ORDERED: diphenhydrAMINE HCL 25 MG CAPSULE PO ONE (00:45)
--- NOTE | 2021-10-18 00:46 | PHYS DOC ---
Past History Past Medical History: Anxiety, Arthritis, Bipolar, Depression, Diverticulitis, Diabetes, Fibromyalgia, GERD, High Cholesterol, Hypertension, Kidney Stones, UTI, Other Additional Past Medical Histor: RODRIGUEZ; gastricportal htn; hypobetalipoproteinemia;cervical canc;sleep apnea Past Surgical History: Cholecystectomy, Hysterectomy, Tonsillectomy, Other Additional Past Surgical Histo: hernia, ankle;stimulator for sleep apnea;breast reduction Smoking: Cigarettes, Less than 1pk/day Alcohol Use: None Drug Use: None Adult General HPI HPI Patient is a 41-year-old female with insulin-dependent diabetes, anxiety, depression, bipolar and fibromyalgia who presents to the emergency department with a chief complaint of hyperglycemia and right-sided flank pain. States she has had flank pain on and off for several months now, 6 out of 10 at its worst, sharp in nature. States she has had kidney stones in the past. States she had high blood sugar at home around 500. Denies any recent travels, traumas, illness, fevers, chest pain, shortness of breath, rash, dysuria, hematuria, blood in the stool or diarrhea. Review of Systems Review of Systems Review of systems otherwise unremarkable except noted in HPI Allergies Allergies Allergies Coded Allergies Type Severity Reaction Last Updated Verified NSAIDS (Non-Steroidal Anti-Inflamma Allergy Intermediate 09/14/21 Yes ketorolac Allergy Intermediate Itching 09/14/21 Yes levofloxacin Allergy Intermediate 09/14/21 Yes shellfish derived Allergy Intermediate Swelling 09/14/21 Yes vancomycin Allergy Intermediate 09/14/21 Yes acetaminophen Adverse Reaction Severe 09/14/21 Yes Physical Exam Physical Exam Constitutional: Well developed, well nourished, no acute distress, non-toxic appearance. [] HENT: Normocephalic, atraumatic, bilateral external ears normal, oropharynx moist, no oral exudates, nose normal. [] Eyes: conjunctiva normal, no discharge. [] Neck: Normal range of motion, no tenderness, supple, no stridor. [] Cardiovascular:Heart rate regular rhythm, no murmur [] Lungs & Thorax: Bilateral breath sounds clear to auscultation [] Abdomen: soft, no tenderness, no masses, no pulsatile masses. [] Skin: Warm, dry, no erythema, no rash. [] Extremities: No tenderness, no cyanosis, no clubbing, ROM intact, no edema. [] Neurologic: Alert and oriented X 3, normal motor function, normal sensory f unction, no focal deficits noted. [] Psychologic: Affect normal, judgement normal, mood normal. [] EKG EKG [] Radiology/Procedures Radiology/Procedures [] Heart Score C/O Chest Pain: No Risk Factors: Risk Factors: DM, Current or recent (<one month) smoker, HTN, HLP, family history of CAD, obesity. Risk Scores: Risk Factors: DM, Current or recent (<one month) smoker, HTN, HLP, family history of CAD, obesity. Course & Med Decision Making Course & Med Decision Making Patient is a 41-year-old female presents with hyperglycemia POC glucose 414. Urinalysis notable for glucosuria and hematuria. Discussed with patient need for work-up to rule out DKA and kidney stone given her history. Patient initially agreed. However during stay, stated that her needed at home so she had to leave. Discussed that if she had DKA or HHS she needed to stay in the hospital to prevent further significant illness, disability and . Patient stated she could not stay and had to leave and signed out BRIGHT Garcias Disclaimer Katerine Disclaimer This electronic medical record was generated, in whole or in part, using a voice recognition dictation system. Departure Departure: Impression: Primary Impression: Hyperglycemia Disposition: 07 LEFT AWOL/ELOPED Condition: STABLE Referrals: PEDRO PABLO JORDAN MD (PCP) LUKAS TRAVIS MD Oct 18, 2021 00:46
[2021-10-18 01:36] LABS: BILIRUBIN,URINE NEG (NEG); CLARITY,URINE HAZY; COLOR,URINE YELLOW; GLUCOSE,URINE >=1000 mg/dL (NEG)
[2021-10-18 01:37] LABS: BACTERIA,URINE 0 /HPF (0-FEW); NITRITE,URINE NEG (NEG); RBC,URINE >40 /HPF (0-2); SQUAMOUS EPITHELIAL CELL,UR FEW /LPF; UROBILINOGEN,URINE 0.2 mg/dL (0.2 mg/dL); WBC,URINE RARE /HPF (0-4)
--- NOTE | 2021-10-18 02:02 | RAD ---
CT ABDOMEN+PELVIS WO History: Reason: flank pain, right side / Spl. Instructions: / History: Technique: Noncontrast examination of the abdomen and pelvis. Coronal and sagittal reconstructions we re performed. Exposure: One or more of the following individualized dose reduction techniques were utilized for thi s examination: 1. Automated exposure control 2. Adjustment of the mA and/or kV according to patient size 3. Use of iterative reconstruction technique. Comparison: July 01, 2021 Findings: Lower chest: No consolidation or pleural effusion. Abdomen and pelvis: Hepatomegaly. The spleen is enlarged measures 15.7 cm. The pancreas is unremarkab le. Prior cholecystectomy. Left adrenal myelolipoma measures 2.7 x 2.7 cm, unchanged. No hydronephrosis. No renal calculus. No ureteral or urinary bladder calculus. Normal appendix. No evidence of bowel obstruction. No pathologic lymphadenopathy. No ascites. Dystrop hic calcification within the right anterolateral abdominal wall, unchanged. Prior hysterectomy. Bones: No pathologic osseous lesions. Impression: 1. No acute abdominal or pelvic pathology. No obstructing urolithiasis. 2. Hepatosplenomegaly, unchanged. Electronically signed by: Wade Larry DO (10/18/2021 2:00 AM) [facility]
== END 2021-10-18 01:30 | disposition left against medical advice (07) ==
LOC: ER 21:59
DX: E11.65 Type 2 diabetes mellitus with hyperglycemia (principal); M19.90 Unspecified osteoarthritis, unspecified site; F41.9 Anxiety disorder, unspecified; F31.9 Bipolar disorder, unspecified; M79.7 Fibromyalgia; K21.9 Gastro-esophageal reflux disease without esophagitis; E78.00 Pure hypercholesterolemia, unspecified; I10 Essential (primary) hypertension; F17.210 Nicotine dependence, cigarettes, uncomplicated; Z87.440 Personal history of urinary (tract) infections; Z87.442 Personal history of urinary calculi; Z88.6 Allergy status to analgesic agent; Z88.1 Allergy status to other antibiotic agents; Z88.8 Allergy status to other drugs, medicaments and biological substances; Z91.013 Allergy to seafood
CPT/HCPCS: 74176; 81001; 82947; 99284

== ENCOUNTER 2021-10-20 16:13 | Emergency (ER) | payer BC ==
[~2021-10-20] VITALS: Ht 165.1 cm; Wt 91.6 kg
[2021-10-20 19:32] VITALS: BP 106/81
[2021-10-20] MEDS ORDERED: IV NORMAL SALINE 1,000ML 1,000 ML IV SCH (19:45)
--- NOTE | 2021-10-20 19:51 | PHYS DOC ---
Past History Past Medical History: Anxiety, Arthritis, Bipolar, Depression, Diverticulitis, Diabetes, Fibromyalgia, GERD, High Cholesterol, Hypertension, Kidney Stones, UTI, Other Additional Past Medical Histor: RODRIGUEZ; gastricportal htn; hypobetalipoproteinemia;cervical canc;sleep apnea Past Surgical History: Cholecystectomy, Hysterectomy, Tonsillectomy, Other Additional Past Surgical Histo: hernia, ankle;stimulator for sleep apnea;breast reduction Smoking: Cigarettes, Less than 1pk/day Alcohol Use: None Drug Use: None General Adult EDM: Chief Complaint: HYPERGLYCEMIA HPI: HPI: ".. My sugars are high again...".. " I am out of my supplies for my pump..." " I also got some Lt. upper abdomen pain..." Patient is a 41 year old female who presents with above hx and complaints of elevated glucose levels. Pt. know to ED staff for frequent episodes of hyperglycemia in spite of insulin pump. Patient has a history of noncompliance with medical regimen. Patient having blood sugars in excess of 5-600 at home. Patient complaining of distention in her abdomen and bloated feeling. Patient has had COVID vaccination and flu vaccination. Patient has a past extensive medical history including nasal repair, tonsillectomy, tonsillitis, adenoidectomy, cardiac dysrhythmia and angina, hypercholesterolemia, RODRIGUEZ, hypertension, COPD, GERD, sleep apnea, esophageal varices, diverticulitis, pancreatitis, hysterectomy, cholecystectomy, hernia repairs, morbid obesity, GERD, chronic abdomen pain, constipation, cervical cancer, uterine prolapse, breast reductions, breast implants, hysterectomy, recurrent kidney stones, urinary tract infections, incontinence, fibromyalgia, chronic pain, diabetes, hypoglycemic episodes as well as hyperglycemic episodes, bipolar, depression, anxiety, previous suicide attempt, tobacco use, inability to cope with ADLs, and history of cervical cancer. Patient denies any recent travel. No specific ill contacts. Patient on several meds including use of insulin pump. See nursing for list. Patient follows with Dr. Aly and [facility] Review of Systems: Review of Systems: Constitutional: Denies fever or chills Eyes: Denies change in visual acuity HENT: Denies nasal congestion or sore throat Respiratory: Denies cough or shortness of breath Cardiovascular: Denies chest pain or edema GI: Denies abdominal pain, nausea, vomiting, bloody stools or diarrhea : Denies dysuria Musculoskeletal: Denies back pain or joint pain Integument: Denies rash Neurologic: Denies headache, focal weakness or sensory changes Endocrine: Denies polyuria or polydipsia Lymphatic: Denies swollen glands Psychiatric: Denies depression or anxiety Family History: Family History: Noncontributory to presentation Current Medications: Current Meds: Current Medications Medications (Trade) Dose Ordered Sig/Yoko Start Time Stop Time Status Last Admin Dose Admin Sodium Chloride 1,000 ml @ 1,000 mls/hr Q1H 10/20/21 19:45 10/20/21 20:44 UNV Allergies: Allergies: Allergies Coded Allergies Type Severity Reaction Last Updated Verified NSAIDS (Non-Steroidal Anti-Inflamma Allergy Intermediate 09/14/21 Yes ketorolac Allergy Intermediate Itching 09/14/21 Yes levofloxacin Allergy Intermediate 09/14/21 Yes shellfish derived Allergy Intermediate Swelling 09/14/21 Yes vancomycin Allergy Intermediate 09/14/21 Yes acetaminophen Adverse Reaction Severe 09/14/21 Yes Physical Exam: PE: Constitutional: Moderate acute, non-toxic appearance. [] HENT: Normocephalic, atraumatic, bilateral external ears normal, oropharynx dry , no oral exudates, nose normal. [] Eyes: PERRLA, EOMI, conjunctiva normal, no discharge. [] Neck: Normal range of motion, no tenderness, supple, no stridor. [] Cardiovascular:Heart rate regular rhythm, no murmur [] PMI to the left. Lungs & Thorax: Bilateral breath sounds equal apex with scattered wheezes and basilar crackles auscultation [] Abdomen: Bowel sounds normal, soft, left upper quadrant tenderness, no masses, no pulsatile masses. Morbid obesity. Old surgical scars. Mild distention. Skin: Warm, dry, no erythema, no rash. [] Back: No tenderness, no CVA tenderness. [] Extremities: No tenderness, no cyanosis, no clubbing, ROM intact, ankle edema. [] No cording appreciated Neurologic: Alert and oriented X 3, normal motor function, normal sensory function, no focal deficits noted. [] Psychologic: Affect anxious judgement normal, mood normal. [] Current Patient Data: Labs: Laboratory Tests Test 10/20/21 19:38 Glucose (Fingerstick) 404 mg/dL (70-99) H Vital Signs: Vital Signs Date Time Temp Pulse Resp B/P (MAP) Pulse Ox O2 Delivery O2 Flow Rate FiO2 10/20/21 19:32 98.2 102 18 106/81 (89) 97 Room Air EKG: EKG: My interpretation EKG shows a sinus rhythm at 90 bpm. There are findings of anterior fascicular block, right bundle branch block, and left axis deviation. Abnormal EKG time of EKG is 2007 hrs. [] Radiology/Procedures: Radiology/Procedures: [][address] [address] IMAGING REPORT Signed PATIENT: SANFORD RANDHAWA ACCOUNT: [id number] : 1980 LOCATION: ER AGE: 41 SEX: F EXAM STATUS: REG ER ORD. PHYSICIAN: RICKIE LAMB MD REASON: cp PROCEDURE: PORTABLE CHEST 1V AP chest. HISTORY: Chest pain AP view was taken of the chest. There is a stimulator on the right unchanged from an old study. Heart is normal in size. There is no pleural effusion. There are no acute infiltrates. IMPRESSION: 1. No acute chest disease. Electronically signed by: Hipolito Goodson MD (10/20/2021 8:01 PM) [facility] DICTATED AND SIGNED BY: HIPOLITO GOODSON MD DATE: 10/20/211999 CC: PEDRO PABLO JORDAN MD; RICKIE LAMB MD ~MTH0 0 Heart Score: C/O Chest Pain: No HEART Score for Chest Pain: HEART Score for Chest Pain Response (Comments) Value History Moderately Suspicious 1 ECG Nonspecific Repolarizatio 1 Age < 45 0 Risk Factors 1 or 2 Risk Factors 1 Troponin < Normal Limit 0 Total 3 Risk Factors: Risk Factors: DM, Current or recent (<one month) smoker, HTN, HLP, family history of CAD, obesity. Risk Scores: Score 0 - 3: 2.5% MACE over next 6 weeks - Discharge Home Score 4 - 6: 20.3% MACE over next 6 weeks - Admit for Clinical Observation Score 7 - 10: 72.7% MACE over next 6 weeks - Early Invasive Strategies Course & Med Decision Making: Course & Med Decision Making Pertinent Labs and Imaging studies reviewed. (See chart for details) Discussed presentation, testing and tx. plan with Dr. Jordan- advised to admit to his service- Pt. currently a Admiission Hold in ED- because of no bed in main hospital due to nursing shortage and COVID. All surrounding hospital holding pt. s and not accepting transfers., Critical care- 30 min. Makilng multiple calls in attempt for placement. Pt. now demanding discharge Glucose 200's. Risks discussed. Pt. Exhibits UCAR capacity. Impression: 1. Hyperglycemia 2. Chronic abdomen pain 3. Elevated LFT's AST 73, Alt 108, Alk Phos 134. 4, Hematuria 5. Dehydration 6. Viral syndrome + COVID 7. Hematuria [] Dragon Disclaimer: Dragon Disclaimer: This electronic medical record was generated, in whole or in part, using a voice recognition dictation system. Departure Departure: Referrals: PEDRO PABLO JORDAN MD (PCP) Katerine Disclaimer This chart was dictated in whole or in part using Voice Recognition software in a busy, high-work load, and often noisy Emergency Department environment. It may contain unintended and wholly unrecognized errors or omissions. Dragon Disclaimer This chart was dictated in whole or in part using Voice Recognition software in a busy, high-work load, and often noisy Emergency Department environment. It may contain unintended and wholly unrecognized errors or omissions. RICKIE LAMB MD Oct 20, 2021 19:51
[2021-10-20] MEDS ORDERED: INSULIN REGULAR VIAL 100 UNIT in IV NORMAL SALINE 100ML 100 ML IV PRN ×2 (20:00→22:30)
[2021-10-20] MEDS ORDERED: INSULIN REGULAR 100 UNIT/ML 3ML VIAL. IV ONE (20:00)
--- NOTE | 2021-10-20 20:04 | RAD ---
AP chest. HISTORY: Chest pain AP view was taken of the chest. There is a stimulator on the right unchanged from an old study. Heart is normal in size. There is no pleural effusion. There are no acute infiltrates. IMPRESSION: 1. No acute chest disease. Electronically signed by: Hipolito Goodson MD (10/20/2021 8:01 PM) [facility]
[2021-10-20 20:05] LABS: BARBITURATES NEG (NEG); BENZODIAZEPINES POS (NEG); CANNABINOIDS NEG (NEG); COCAINE NEG (NEG); METHADONE NEG (NEG); OPIATES POS (NEG); PHENCYCLIDINE NEG (NEG)
[2021-10-20 20:06] LABS: AMPHETAMINE/METHAMPHETAMINE NEG (NEG)
[2021-10-20] MEDS ORDERED: IV NORMAL SALINE 100ML 100 ML ONE (20:15)
[2021-10-20 20:30] LABS: BASO # 0.1 x10^3/uL (0.0-0.2); BASO % 1 % (0-3); EOS # 0.1 x10^3/uL (0.0-0.7); EOS % 1 % (0-3); HEMATOCRIT 43.5 % (36.0-47.0); HEMOGLOBIN 14.5 g/dL (12.0-15.5); LYMPH # 2.9 x10^3/uL (1.0-4.8); LYMPH % 35 % (24-48); MEAN CORPUSCULAR HEMOGLOBIN 29 pg (25-35); MEAN CORPUSCULAR HGB CONC 33 g/dL (31-37); MEAN CORPUSCULAR VOLUME 88 fL (79-100); MONO # 0.4 x10^3/uL (0.0-1.1); MONO % 5 % (0-9); NEUT # 4.8 x10^3uL (1.8-7.7); NEUT % 58 % (31-73); PLATELET COUNT 158 x10^3/uL (140-400); RED BLOOD COUNT 4.91 x10^6/uL (3.50-5.40); RED CELL DISTRIBUTION WIDTH 16.7 % (11.5-14.5); WHITE BLOOD COUNT 8.3 x10^3/uL (4.0-11.0)
[2021-10-20 20:38] LABS: ALBUMIN 3.9 g/dL (3.4-5.0); DIRECT BILIRUBIN 0.1 mg/dL (0.0-0.2); MAGNESIUM 2.1 mg/dL (1.8-2.4); TOTAL BILIRUBIN 0.3 mg/dL (0.2-1.0); TOTAL PROTEIN 7.8 g/dL (6.4-8.2)
[2021-10-20 20:43] LABS: BACTERIA,URINE 0 /HPF (0-FEW); BILIRUBIN,URINE NEG (NEG); CLARITY,URINE CLOUDY; COLOR,URINE YELLOW; GLUCOSE,URINE >=1000 mg/dL (NEG); NITRITE,URINE NEG (NEG); RBC,URINE >40 /HPF (0-2); SQUAMOUS EPITHELIAL CELL,UR MANY /LPF; UROBILINOGEN,URINE 0.2 mg/dL (0.2 mg/dL); WBC,URINE 0 /HPF (0-4)
[2021-10-20 20:53] LABS: CALCIUM 9.4 mg/dL (8.5-10.1); CREATININE 0.8 mg/dL (0.6-1.0); POTASSIUM 4.1 mmol/L (3.5-5.1)
[2021-10-20 20:59] LABS: ALBUMIN 3.9 g/dL (3.4-5.0); TOTAL BILIRUBIN 0.3 mg/dL (0.2-1.0); TOTAL PROTEIN 7.8 g/dL (6.4-8.2)
[2021-10-20 21:12] LABS: INFLUENZA A PATIENT NEGATIVE (NEGATIVE); INFLUENZA B PATIENT NEGATIVE (NEGATIVE)
[2021-10-20] MEDS ORDERED: ALBUTEROL SULFATE 8GM INHALER. INH ONE (21:45)
[2021-10-20] MEDS ORDERED: IV RINGERS SOLUTION,LACTATED 1,000 ML IV SCH (21:45)
[2021-10-20] MEDS ORDERED: ONDANSETRON PF 4 MG/2 ML VIAL. IVP ONE (21:45)
[2021-10-20] MEDS ORDERED: ONDANSETRON PF 4 MG/2 ML VIAL. IVP PRN (21:45)
--- NOTE | 2021-10-21 01:05 | EKG ---
[address] [address] Test Date: 2021-10-20 Test Time: 20:07:23 Pat Name: SANFORD RANDHAWA Department: Room: ED HOLD 03 Gender: F Coater Slate: : 1980 Requested By: RICKIE LAMB Order Number: [id number] Reading MD: Tono Braxton Measurements Intervals [place] Rate: 90 P: 26 [place]: 158 QRS: -32 QRSD: 84 T: 26 QT: 344 QTc: 425 Interpretive Statements SINUS RHYTHM ABNORMAL LEFT AXIS DEVIATION NON SPECIFIC T WAVE CHANGES Electronically Signed On 10-24-2021 16:48:13 WINDER HAND by Tono Braxton
[2021-10-21] MEDS ORDERED: SENNOSIDES/DOCUSATE 8.6/50MG TABLET. PO PRN (08:30)
[2021-10-21] MEDS ORDERED: NON FORMULARY ITEM (Umeclidinium Brm/Vilanterol Tr (Anoro Ellipta 62.5-25 Mcg Inh) 1 EACH) IH PRN (08:30)
[2021-10-21] MEDS ORDERED: CYCLOBENZAPRINE 10 MG TABLET. PO PRN (08:30)
[2021-10-21] MEDS ORDERED: ALPRAZolam 0.25 MG TABLET PO PRN (08:45)
[2021-10-21] MEDS ORDERED: FERROUS SULFATE 325 MG TABLET. PO SCH (09:00)
[2021-10-21] MEDS ORDERED: buPROPion SR 100 MG TABLET.SA. PO SCH (09:00)
[2021-10-21] MEDS ORDERED: MUPIROCIN 2% TOPICAL OINTMENT 22GM TUBE. TP SCH (09:00)
[2021-10-21] MEDS ORDERED: DESVENLAFAXINE 50 MG TAB.ER.24H. PO SCH (09:00)
[2021-10-21] MEDS ORDERED: ALBUTEROL SULFATE 8GM INHALER. INH SCH (09:00)
[2021-10-21] MEDS ORDERED: PANTOPRAZOLE 40 MG TABLET. PO SCH (09:00)
[2021-10-21] MEDS ORDERED: GABAPENTIN 300 MG CAPSULE. PO SCH (21:00)
[2021-10-21] MEDS ORDERED: QUEtiapine 100 MG TABLET. PO SCH (21:00)
== END 2021-10-21 00:03 | disposition home or self-care (01) ==
LOC: ER 16:13 → ER HOLD 21:43 → UNDOADMOB 21:43
DX: U07.1 COVID-19 (principal); E11.65 Type 2 diabetes mellitus with hyperglycemia; R79.89 Other specified abnormal findings of blood chemistry; R31.9 Hematuria, unspecified; E86.0 Dehydration; F41.9 Anxiety disorder, unspecified; M19.90 Unspecified osteoarthritis, unspecified site; F31.9 Bipolar disorder, unspecified; M79.7 Fibromyalgia; K21.9 Gastro-esophageal reflux disease without esophagitis; E78.00 Pure hypercholesterolemia, unspecified; I10 Essential (primary) hypertension; F17.210 Nicotine dependence, cigarettes, uncomplicated; J44.9 Chronic obstructive pulmonary disease, unspecified; G89.29 Other chronic pain; Z87.440 Personal history of urinary (tract) infections; Z87.442 Personal history of urinary calculi
CPT/HCPCS: 36415; 71045; 80053; 80076; 80307; 81001; 82550; 82947; 83690; 83735; 83880; 84443; 84484; 85025; 85610; 85730; 87428; 93005; 96365; 96366; 96375; 96376; 99291; J1815; J2405; J7030; J7120

== ENCOUNTER 2021-11-03 08:06 | Emergency (ER) | payer BC ==
[~2021-11-03] VITALS: Ht 165.1 cm; Wt 91.6 kg
[2021-11-03 08:15] VITALS: BP 125/71
--- NOTE | 2021-11-03 08:24 | PHYS DOC ---
Past History Past Medical History: Anxiety, Arthritis, Bipolar, Depression, Diverticulitis, Diabetes, Fibromyalgia, GERD, High Cholesterol, Hypertension, Kidney Stones, UTI, Other Additional Past Medical Histor: RODRIGUEZ; gastricportal htn; hypobetalipoproteinemia;cervical canc;sleep apnea Past Surgical History: Cholecystectomy, Hysterectomy, Tonsillectomy, Other Additional Past Surgical Histo: hernia, ankle;stimulator for sleep apnea;breast reduction Smoking: Cigarettes, Less than 1pk/day Alcohol Use: None Drug Use: None Adult General Chief Complaint Chief Complaint: HYPERGLYCEMIA HPI HPI Patient is a 41-year-old female presenting for hyperglycemia. Reports she tested positive for COVID-19 October 21 and has been feeling poorly ever since. Admits she got vaccinated against COVID-19 but reports ongoing upper respiratory symptoms and shortness of breath. She reports she woke up this morning as her CGM notified her that her sugar was high, when she checked it was 550. She subsequently administered 10 units of fast acting insulin and transported herself to our ER for evaluation. On arrival, she complains of suprapubic pain and increased urination in addition to COVID symptoms as mentioned. She has been compliant with her home insulin regiment taking her 34 units Lantus insulin yesterday evening as scheduled with no recent steroid use or other major changes in health besides recent COVID diagnosis Review of Systems Review of Systems Fourteen body systems of review of systems have been reviewed. See HPI for pertinent positives and negative responses, other bain all other systems are negative, non-pertinent or non-contributory Allergies Allergies Allergies Coded Allergies Type Severity Reaction Last Updated Verified NSAIDS (Non-Steroidal Anti-Inflamma Allergy Intermediate 09/14/21 Yes ketorolac Allergy Intermediate Itching 09/14/21 Yes levofloxacin Allergy Intermediate 09/14/21 Yes shellfish derived Allergy Intermediate Swelling 09/14/21 Yes vancomycin Allergy Intermediate 09/14/21 Yes acetaminophen Adverse Reaction Severe 09/14/21 Yes Physical Exam Physical Exam Constitutional: Well developed, well nourished, obese, no acute distress, non- toxic appearance. HENT: Normocephalic, atraumatic, bilateral external ears normal, oropharynx moist, no oral exudates, nose normal. Eyes: PERRLA, EOMI, conjunctiva normal, no discharge. Neck: Normal range of motion, no tenderness, supple, no stridor. Cardiovascular: Heart rate regular, sinus rhythm, no murmurs rubs or gallops Lungs & Thorax: Bilateral breath sounds clear to auscultation Abdomen: Bowel sounds normal, soft and protuberant, no tenderness, no masses, no pulsatile masses. Nonsurgical abdomen, no peritoneal signs Skin: Warm, dry, no erythema, no rash. Back: No tenderness, no CVA tenderness. Extremities: No tenderness, no cyanosis, no clubbing, ROM intact, no edema. Neurologic: Alert and oriented X 3, grossly normal motor & sensory function, no focal deficits noted. Psychologic: Odd affect and mood Current Patient Data Vital Signs Vital Signs Date Time Temp Pulse Resp B/P (MAP) Pulse Ox O2 Delivery O2 Flow Rate FiO2 11/03/21 08:15 98.0 98 16 125/71 (89) 98 Room Air EKG EKG [] Radiology/Procedures Radiology/Procedures [] Heart Score C/O Chest Pain: No Risk Factors: Risk Factors: DM, Current or recent (<one month) smoker, HTN, HLP, family history of CAD, obesity. Risk Scores: Risk Factors: DM, Current or recent (<one month) smoker, HTN, HLP, family history of CAD, obesity. Course & Med Decision Making Course & Med Decision Making ABCs unremarkable. POC glucose greater than 400 Prior to start of ER work-up patient eloped from emergency department stating on way out to healthcare provider that her 's car had difficulties and she needed to go and help him Patient left prior to being counseled, receiving any diagnostic work-up etc. Dragon Disclaimer Dragon Disclaimer This electronic medical record was generated, in whole or in part, using a voice recognition dictation system. Departure Departure: Impression: Primary Impression: Eloped from emergency department Additional Impression: Poorly controlled type 2 diabetes mellitus Disposition: LEFT AWOL/ELOPED Condition: GUARDED Referrals: PEDRO PABLO JORDAN MD (PCP) Problem Qualifiers EVELIN NORRIS DO Nov 03, 2021 08:24
== END 2021-11-03 08:26 | disposition left against medical advice (07) ==
LOC: ER 08:06
DX: E11.65 Type 2 diabetes mellitus with hyperglycemia (principal); F41.9 Anxiety disorder, unspecified; M19.90 Unspecified osteoarthritis, unspecified site; F31.9 Bipolar disorder, unspecified; M79.7 Fibromyalgia; K21.9 Gastro-esophageal reflux disease without esophagitis; E78.00 Pure hypercholesterolemia, unspecified; I10 Essential (primary) hypertension; F17.210 Nicotine dependence, cigarettes, uncomplicated; Z87.440 Personal history of urinary (tract) infections; Z87.442 Personal history of urinary calculi; Z90.49 Acquired absence of other specified parts of digestive tract; Z90.710 Acquired absence of both cervix and uterus; Z88.6 Allergy status to analgesic agent; Z88.1 Allergy status to other antibiotic agents; Z91.013 Allergy to seafood; Z88.8 Allergy status to other drugs, medicaments and biological substances
CPT/HCPCS: 99281

== ENCOUNTER 2021-11-09 12:24 | Emergency (ER) | payer BC ==
[~2021-11-09] VITALS: Ht 165.1 cm; Wt 91.6 kg
[2021-11-09 12:37] VITALS: BP 127/78
[2021-11-09] MEDS ORDERED: IV NORMAL SALINE 1,000ML 1,000 ML IV ONE (12:45)
[2021-11-09] MEDS ORDERED: ONDANSETRON PF 4 MG/2 ML VIAL. IVP ONE (13:00)
[2021-11-09] MEDS ORDERED: diazePAM 5 MG TABLET. PO ONE (13:00)
[2021-11-09 13:29] LABS: BASO % 1 % (0-3); EOS # 0.1 x10^3/uL (0.0-0.7); EOS % 1 % (0-3); HEMATOCRIT 38.1 % (36.0-47.0); HEMOGLOBIN 12.7 g/dL (12.0-15.5); LYMPH # 1.4 x10^3/uL (1.0-4.8); LYMPH % 27 % (24-48); MEAN CORPUSCULAR HEMOGLOBIN 30 pg (25-35); MEAN CORPUSCULAR HGB CONC 33 g/dL (31-37); MEAN CORPUSCULAR VOLUME 90 fL (79-100); MONO # 0.4 x10^3/uL (0.0-1.1); MONO % 7 % (0-9); NEUT # 3.3 x10^3uL (1.8-7.7); NEUT % 64 % (31-73); PLATELET COUNT 151 x10^3/uL (140-400); RED BLOOD COUNT 4.25 x10^6/uL (3.50-5.40); RED CELL DISTRIBUTION WIDTH 17.3 % (11.5-14.5); WHITE BLOOD COUNT 5.1 x10^3/uL (4.0-11.0)
[2021-11-09 13:39] LABS: CALCIUM 8.2 mg/dL (8.5-10.1); CREATININE 0.8 mg/dL (0.6-1.0); POTASSIUM 3.8 mmol/L (3.5-5.1)
[2021-11-09 13:41] LABS: BILIRUBIN,URINE NEG (NEG); CLARITY,URINE HAZY; COLOR,URINE YELLOW; GLUCOSE,URINE >=1000 mg/dL (NEG)
[2021-11-09 13:42] LABS: BACTERIA,URINE MANY /HPF (0-FEW); NITRITE,URINE POS (NEG); SQUAMOUS EPITHELIAL CELL,UR FEW /LPF; UROBILINOGEN,URINE 0.2 mg/dL (0.2 mg/dL); WBC,URINE 20-40 /HPF (0-4)
[2021-11-09 13:44] LABS: ALBUMIN 3.2 g/dL (3.4-5.0); MAGNESIUM 1.9 mg/dL (1.8-2.4); TOTAL BILIRUBIN 0.3 mg/dL (0.2-1.0); TOTAL PROTEIN 6.5 g/dL (6.4-8.2)
[2021-11-09] MEDS ORDERED: PHENAZOPYRIDINE 200 MG TABLET. PO ONE (14:00)
[2021-11-09] MEDS ORDERED: INSULIN REGULAR 100 UNIT/ML 3ML VIAL. SQ ONE (14:00)
[2021-11-09] MEDS ORDERED: IV NORMAL SALINE 50ML 50 ML ONE (14:23)
[2021-11-09] MEDS ORDERED: cefTRIAXone SODIUM 1 GM VIAL ONE (14:23)
--- NOTE | 2021-11-09 15:41 | PHYS DOC ---
Past History Past Medical History: Anxiety, Arthritis, Bipolar, Cancer, COPD, Depression, Diverticulitis, Diabetes, Fibromyalgia, Gallstones, GERD, High Cholesterol, Hypertension, Kidney Stones, Liver Disease, Pancreatitis, UTI, Other Additional Past Medical Histor: RODRIGUEZ; gastricportal htn; hypobetalipoproteinemia;cervical canc;sleep apnea Past Surgical History: Cholecystectomy, Hysterectomy, Tonsillectomy, Other Additional Past Surgical Histo: hernia, ankle;stimulator for sleep apnea;breast reduction Smoking: Cigarettes, Less than 1pk/day Alcohol Use: None Drug Use: None General Adult EDM: Chief Complaint: HYPERGLYCEMIA HPI: HPI: 41-year-old female with past medical history of diabetes mellitus who is well- known to the emergency department due to frequent visits presents with report of hyperglycemia. Patient reports her hyperglycemia has been ongoing for the past month. Reports at home she checked her sugar and it was 495. Patient had initially brought her daughter to the ER for evaluation of an ankle injury. Upon checking her blood sugar she decided to also be seen for further evaluation and treatment. Reports some associated nausea. Denies any fever or chills. Patient also reporting some lower abdominal discomfort. Review of Systems: Review of Systems: Constitutional: Denies fever or chills Eyes: Denies redness or eye pain HENT: Denies nasal congestion or sore throat Respiratory: Denies cough or shortness of breath Cardiovascular: Denies chest pain or palpitations GI: Reports lower abdominal pain and nausea; denies vomiting : Denies dysuria or hematuria Musculoskeletal: Denies back pain or joint pain Integument: Denies rash or skin lesions Neurologic: Denies headache, focal weakness or sensory changes Complete systems were reviewed and found to be within normal limits, except as documented in this note. Current Medications: Current Meds: Current Medications Medications (Trade) Dose Ordered Sig/Yoko Start Time Stop Time Status Last Admin Dose Admin Ceftriaxone Sodium 1 gm/ Sodium Chloride 50 ml @ 100 mls/hr 1X ONCE 11/09/21 14:00 11/09/21 14:29 DC Ceftriaxone Sodium (Rocephin) 1 gm STK-MED ONCE 11/09/21 14:23 11/09/21 14:23 DC Diazepam (Valium) 5 mg 1X ONCE 11/09/21 13:00 11/09/21 13:01 DC 11/09/21 13:00 5 MG Insulin Human Regular (HumuLIN R VIAL) 14 unit 1X ONCE 11/09/21 14:00 11/09/21 14:02 DC Ondansetron HCl (Zofran) 4 mg 1X ONCE 11/09/21 13:00 11/09/21 13:01 DC 11/09/21 13:00 4 MG Phenazopyridine HCl (Pyridium) 200 mg 1X ONCE 11/09/21 14:00 11/09/21 14:02 DC Sodium Chloride 50 ml @ As Directed STK-MED ONCE 11/09/21 14:23 11/09/21 14:23 DC Allergies: Allergies: Allergies Coded Allergies Type Severity Reaction Last Updated Verified NSAIDS (Non-Steroidal Anti-Inflamma Allergy Intermediate 11/09/21 Yes ketorolac Allergy Intermediate Itching 11/09/21 Yes levofloxacin Allergy Intermediate 11/09/21 Yes shellfish derived Allergy Intermediate Swelling 11/09/21 Yes vancomycin Allergy Intermediate 11/09/21 Yes acetaminophen Adverse Reaction Severe 11/09/21 Yes Physical Exam: PE: Constitutional: Well developed, well nourished, no acute distress, non-toxic appearance HENT: Normocephalic, atraumatic Eyes: Conjunctiva normal, no discharge Neck: Normal range of motion, no tenderness, supple Lungs & Thorax: No respiratory distress, equal chest rise and fall Abdomen: Soft, mild suprapubic tenderness, no guarding/rebound tenderness/distention Skin: Warm, dry, no erythema, no rash Extremities: No tenderness, ROM intact, no edema Neurologic: Alert and oriented X 3, normal motor function, normal sensory func tion, no focal deficits noted Psychologic: Affect normal, judgment normal Current Patient Data: Labs: Laboratory Tests Test 11/09/21 12:33 11/09/21 12:57 Glucose (Fingerstick) 436 mg/dL (70-99) H White Blood Count 5.1 x10^3/uL (4.0-11.0) Red Blood Count 4.25 x10^6/uL (3.50-5.40) Hemoglobin 12.7 g/dL (12.0-15.5) Hematocrit 38.1 % (36.0-47.0) Mean Corpuscular Volume 90 fL (79-100) Mean Corpuscular Hemoglobin 30 pg (25-35) Mean Corpuscular Hemoglobin Concent 33 g/dL (31-37) Red Cell Distribution Width 17.3 % (11.5-14.5) H Platelet Count 151 x10^3/uL (140-400) Neutrophils (%) (Auto) 64 % (31-73) Lymphocytes (%) (Auto) 27 % (24-48) Monocytes (%) (Auto) 7 % (0-9) Eosinophils (%) (Auto) 1 % (0-3) Basophils (%) (Auto) 1 % (0-3) Neutrophils # (Auto) 3.3 x10^3uL (1.8-7.7) Lymphocytes # (Auto) 1.4 x10^3/uL (1.0-4.8) Monocytes # (Auto) 0.4 x10^3/uL (0.0-1.1) Eosinophils # (Auto) 0.1 x10^3/uL (0.0-0.7) Basophils # (Auto) 0.0 x10^3/uL (0.0-0.2) Urine Collection Type Clean catch Urine Color Yellow Urine Clarity Hazy Urine pH 5.5 Urine Specific [place] 1.015 Urine Protein Neg (NEG-TRACE) Urine Glucose (UA) >=1000 mg/dL (NEG) Urine Ketones (Stick) Neg mg/dL (NEG) Urine Blood Trace (NEG) Urine Nitrite Pos (NEG) Urine Bilirubin Neg (NEG) Urine Urobilinogen Dipstick 0.2 mg/dL (0.2 mg/dL) Urine Leukocyte Esterase Neg (NEG) Urine RBC 3-5 /HPF (0-2) Urine WBC 20-40 /HPF (0-4) Urine Squamous Epithelial Cells Few /LPF Urine Bacteria Many /HPF (0-FEW) Sodium Level 135 mmol/L (136-145) L Potassium Level 3.8 mmol/L (3.5-5.1) Chloride Level 102 mmol/L (98-107) Carbon Dioxide Level 24 mmol/L (21-32) Anion Gap 9 (6-14) Blood Urea Nitrogen 5 mg/dL (7-20) L Creatinine 0.8 mg/dL (0.6-1.0) Estimated GFR (Cockcroft-Gault) 79.0 BUN/Creatinine Ratio 6 (6-20) Glucose Level 478 mg/dL (70-99) H Calcium Level 8.2 mg/dL (8.5-10.1) L Magnesium Level 1.9 mg/dL (1.8-2.4) Total Bilirubin 0.3 mg/dL (0.2-1.0) Aspartate Amino Transferase (AST) 44 U/L (15-37) H Alanine Aminotransferase (ALT) 65 U/L (14-59) H Alkaline Phosphatase 115 U/L (46-116) Total Protein 6.5 g/dL (6.4-8.2) Albumin 3.2 g/dL (3.4-5.0) L Albumin/Globulin Ratio 1.0 (1.0-1.7) Vital Signs: Vital Signs Date Time Temp Pulse Resp B/P (MAP) Pulse Ox O2 Delivery O2 Flow Rate FiO2 11/09/21 12:37 97.9 79 18 127/78 (94) 97 EKG: EKG: [] Radiology/Procedures: Radiology/Procedures: [] Heart Score: C/O Chest Pain: N/A Course & Med Decision Making: Course & Med Decision Making Pertinent Lab studies reviewed. (See chart for details) Patient who is a frequent visitor of emergency department here at [facility] presents for evaluation of patient's hyperglycemia. Reports has been ongoing for the past month. Patient reportedly was 495. Labs obtained and posted to chart. IV fluid hydration given. Insulin ordered. Patient requesting pain medication. Valium provided. UA with signs of infection. Empiric antibiotic ordered. Abdomen nonperitoneal. [facility] reviewed and noted patient with frequent ER visits including visit from 10/18/21. Patient did receive a CT abdomen/pelvis at that time without significant acute abdominal or pelvic pathology. Attempted to discuss findings with patient who subsequently eloped from the department prior to being discharged. Patient has a frequent history of eloping from emergency departments after receiving pain medication. Dragon Disclaimer: Dragon Disclaimer: This electronic medical record was generated, in whole or in part, using a voice recognition dictation system. Departure Departure: Impression: Primary Impression: UTI (urinary tract infection) Qualified Codes: N30.00 - Acute cystitis without hematuria Additional Impressions: Hyperglycemia Eloped from emergency department Disposition: 07 LEFT AWOL/ELOPED Condition: GUARDED Referrals: PEDRO PABLO JORDAN MD (PCP) ROGER MILLER DO Nov 09, 2021 15:41
== END 2021-11-09 14:30 | disposition left against medical advice (07) ==
LOC: ER 12:24
DX: E11.65 Type 2 diabetes mellitus with hyperglycemia (principal); N30.00 Acute cystitis without hematuria; F41.9 Anxiety disorder, unspecified; M19.90 Unspecified osteoarthritis, unspecified site; F31.9 Bipolar disorder, unspecified; J44.9 Chronic obstructive pulmonary disease, unspecified; M79.7 Fibromyalgia; K21.9 Gastro-esophageal reflux disease without esophagitis; E78.00 Pure hypercholesterolemia, unspecified; I10 Essential (primary) hypertension; F17.210 Nicotine dependence, cigarettes, uncomplicated; Z87.440 Personal history of urinary (tract) infections; Z87.442 Personal history of urinary calculi; Z90.49 Acquired absence of other specified parts of digestive tract; Z90.710 Acquired absence of both cervix and uterus; Z88.6 Allergy status to analgesic agent; Z88.1 Allergy status to other antibiotic agents; Z91.013 Allergy to seafood; Z88.8 Allergy status to other drugs, medicaments and biological substances
CPT/HCPCS: 36415; 80053; 81001; 82947; 83735; 85025; 87077; 87086; 87186; 96361; 96374; 99283; J2405; J7030

== ENCOUNTER 2021-12-17 19:33 | Emergency (ER) | payer BC ==
[~2021-12-17] VITALS: Ht 165.1 cm; Wt 85.0 kg
[2021-12-17 19:33] VITALS: BP 125/86
[~2021-12-17 19:33] MED LIST changes: -EMPA10TA PO; +EMPA10TA3 PO
--- NOTE | 2021-12-17 19:52 | PHYS DOC ---
Past History Past Medical History: Anxiety, Arthritis, Bipolar, Cancer, COPD, Depression, Diverticulitis, Diabetes, Fibromyalgia, Gallstones, GERD, High Cholesterol, Hypertension, Kidney Stones, Liver Disease, Pancreatitis, UTI, Other Additional Past Medical Histor: RODRIGUEZ; gastricportal htn; hypobetalipoproteinemia;cervical canc;sleep apnea (ОЛЬГА VALENTIN APRN) Past Surgical History: Cholecystectomy, Oophorectomy Additional Past Surgical Histo: hernia, ankle;stimulator for sleep apnea;breast reduction (ОЛЬГА VALENTIN APRN) Smoking: Cigarettes, Less than 1pk/day Alcohol Use: None Drug Use: None (ОЛЬГА VALENTIN APRN) General Adult HPI: HPI: Patient is a 41-year-old female who presents after swallowing a magnet. Patient states that she was cleaning out her fridge and took a magnet from the refrigerator and held it in her mouth and accidentally swallowed it. Patient states that she took another magnet and tied it to a string and swallowed that to try and get the first magnet out of her stomach. Patient states that she excellently swallowed the whole entire string with a second magnet. Denies nausea and vomiting. Denies abdominal pain at this time. History of anxiety, depression, COPD, diabetes, hypertension, fibromyalgia, bipolar disorder. (ОЛЬГА VALENTIN APRN) Review of Systems: Review of Systems: ROS At least 10 ROS systems have been reviewed and are negative except as documented in the HPI. General: Negative except as outlined in HPI above. Skin: Negative except as outlined in HPI above. HEENT: Negative except as outlined in HPI above. Neck: Negative except as outlined in HPI above. Respiratory: Negative except as outlined in HPI above.. Cardiovascular: Negative except as outlined in HPI above. Abdomen: Negative except as outlined in HPI above. : Negative except as outlined in HPI above. Back/MSK: Negative except as outlined in HPI above. Neuro: Negative except as outlined in HPI above. Psych: Negative except as outlined in HPI above. (ОЛЬГА VALENTIN ASSISTANT PROFESSOR) Allergies: Allergies: Allergies Coded Allergies Type Severity Reaction Last Updated Verified NSAIDS (Non-Steroidal Anti-Inflamma Allergy Intermediate 11/09/21 Yes ketorolac Allergy Intermediate Itching 11/09/21 Yes levofloxacin Allergy Intermediate 11/09/21 Yes shellfish derived Allergy Intermediate Swelling 11/09/21 Yes vancomycin Allergy Intermediate 11/09/21 Yes acetaminophen Adverse Reaction Severe 11/09/21 Yes (ОЛЬГА VALENTIN APRN) Physical Exam: PE: Constitutional: Well developed, well nourished, no acute distress, non-toxic appearance. [] HENT: Normocephalic, atraumatic, bilateral external ears normal, oropharynx moist, no oral exudates, nose normal. [] Eyes: PERRLA, EOMI, conjunctiva normal, no discharge. [] Neck: Normal range of motion, no tenderness, supple, no stridor. [] Cardiovascular:Heart rate regular rhythm, no murmur [] Lungs & Thorax: Bilateral breath sounds clear to auscultation [] Abdomen: Bowel sounds normal, soft, no tenderness, no masses, no pulsatile masses. [] Skin: Warm, dry, no erythema, no rash. [] Back: No tenderness, no CVA tenderness. [] Extremities: No tenderness, no cyanosis, no clubbing, ROM intact, no edema. [] Neurologic: Alert and oriented X 3, normal motor function, normal sensory function, no focal deficits noted. [] Psychologic: Affect normal, judgement abnormal, mood normal. [] (ОЛЬГА VALENTIN APRN) EKG: EKG: [] (ОЛЬГА VALENTIN APRN) Radiology/Procedures: Radiology/Procedures: []XR CHEST 2V, XR ABDOMEN 1V History: Reason: SWALLLOWED A MAGNET / Spl. Instructions: / History: Technique: AP and lateral view of the chest and supine views of the abdomen. Comparison: October 20, 2021 Findings: No consolidation or pleural effusion. No pneumothorax. Normal heart size. Right- sided chest wall stimulator device, unchanged. Rounded metallic foreign bodies projecting over the mid gastric body to larger rounded metallic bodies measure 2.1 x 1.2 cm and immediately posterior and lateral view of the chest additional rounded foreign body measures 1.4 x 0.7 cm. Smaller metallic foreign bodies between. Mild small bowel gas. Air and stool scattered throughout the imaged colon. Postop changes right pelvis. Surgical clips right upper quadrant. Impression: 1. Two rounded metallic foreign bodies projecting over the mid gastric body with adjacent metallic chain. Electronically signed by: Wade Larry DO (12/17/2021 8:10 PM) [facility] XR CHEST 2V, XR ABDOMEN 1V History: Reason: SWALLLOWED A MAGNET / Spl. Instructions: / History: Technique: AP and lateral view of the chest and supine views of the abdomen. Comparison: October 20, 2021 Findings: No consolidation or pleural effusion. No pneumothorax. Normal heart size. Right- sided chest wall stimulator device, unchanged. Rounded metallic foreign bodies projecting over the mid gastric body to larger rounded metallic bodies measure 2.1 x 1.2 cm and immediately posterior and lateral view of the chest additional rounded foreign body measures 1.4 x 0.7 cm. Smaller metallic foreign bodies between. Mild small bowel gas. Air and stool scattered throughout the imaged colon. Postop changes right pelvis. Surgical clips right upper quadrant. Impression: 1. Two rounded metallic foreign bodies projecting over the mid gastric body with adjacent metallic chain. Electronically signed by: Wade Larry DO (12/17/2021 8:10 PM) [facility] (ОЛЬГА VALENTIN APRN) Heart Score: C/O Chest Pain: No Risk Factors: Risk Factors: DM, Current or recent (<one month) smoker, HTN, HLP, family history of CAD, obesity. Risk Scores: Score 0 - 3: 2.5% MACE over next 6 weeks - Discharge Home Score 4 - 6: 20.3% MACE over next 6 weeks - Admit for Clinical Observation Score 7 - 10: 72.7% MACE over next 6 weeks - Early Invasive Strategies (ОЛЬГА VALENTIN APRN) Course & Med Decision Making: Course & Med Decision Making Pertinent Labs and Imaging studies reviewed. (See chart for details) [] 41-year-old female who presents to ER for swallowing to magnets. Patient is very well-known to this ER and is usually seen for chronic abdominal pain. Chest x-ray and KUB ordered. X-ray shows Two rounded metallic foreign bodies projecting over the mid gastric body with adjacent metallic chain. Consulted Dr. Tinsley with GI. Dr. Tinsley suggested patient follow-up with her primary care tomorrow for a repeat x-ray. Discussed discharge plan with patient. (ОЛЬГА VALENTIN APRN) Course & Med Decision Making Did not see or evaluate patient. Did not discuss patient with FASHION SUPERVISOR. Generally agree with FASHION SUPERVISOR's work-up and disposition per note (LUKAS TRAVIS MD) Dragon Disclaimer: Dragon Disclaimer: This electronic medical record was generated, in whole or in part, using a voice recognition dictation system. (ОЛЬГА VALENTIN ASSISTANT PROFESSOR) Departure Departure: Impression: Primary Impression: Foreign body, swallowed Qualified Codes: T18.9XXA - Foreign body of alimentary tract, part unspecifi ed, initial encounter Disposition: HOME / SELF CARE / HOMELESS Condition: STABLE Referrals: PEDRO PABLO JORDAN MD (PCP) Patient Instructions: Swallowed Foreign Body, Adult, [id number] Additional Instructions: You are seen in the emergency room for swallowing to magnets. X-ray showed magnets were in your stomach. Consulted GI at [facility]. They suggested that you follow-up tomorrow for a repeat x-ray at your PCPs office. Return to the emergency room if you have worsening symptoms or concerns. EMERGENCY DEPARTMENT GENERAL DISCHARGE INSTRUCTIONS Thank you for coming to [facility] (ED) today and trusting us with you care. We trust that you had a positivie experience in our Emergency Department. If you wish to speak to the department management, you may call the director at [phone]. YOUR FOLLOW UP INSTRUCTIONS ARE FOLLOWS: 1. Do you have a private Doctor? If you do not have a private doctor, please ask for a resource list of physicians or clinics that may be able to assist you with follow up care. 2. The Emergency Physician has interpreted your x-rays. The X-Ray specialist will also review them. If there is a change in the findings, you will be notified in 48 hours when at all possible. 3. A lab test or culture has been done, your results will be reviewed and you will be notified if you need a change in treatment. ADDITIONAL INSTRUCTIONS AND INFORMATION: 1. Your care today has been supervised by a physician who is specially trained in emergency care. Many problems require more than one evaluation for a complete diagnosis and treatment. We recommend that you schedule your follow up appointment as recommended to ensure complete treatment of you illness or injury. If you are unable to obtain follow up care and continue to have a problem, or if your condition worsens, we recommend that you return to the ED. 2. We are not able to safely determine your condition over the phone nor are we able to give sound medical advice over the phone. For these safety reasons, if you call for medical advice we will ask you to come to the ED for further evaluation. 3. If you have any questions regarding these discharge instructions please call the ED at [phone]. SAFETY INFORMATION: In the interest of safety, wellness, and injury prevention; we encourage you to wear your sealbelt, if you smoke; quite smoking, and we encourage family to use a protective helmet for bicycling and other sporting events that present an increased risk for head injury. IF YOUR SYMPTOMS WORSEN OR NEW SYMPTOMS DEVELOP, OR YOU HAVE CONCERNS ABOUT YOUR CONDITION; OR IF YOUR CONDITION WORSENS WHILE YOU ARE WAITING FOR YOUR FOLLOW UP APPOINTMENT; EITHER CONTACT YOUR PRIMARY CARE DOCTOR, THE PHYSICIAN WHOSE NAME AND NUMBER YOU WERE GIVEN, OR RETURN TO THE ED IMMEDIATELY. ОЛЬГА VALENTIN APRN Dec 17, 2021 19:52 LUKAS TRAVIS MD Dec 17, 2021 22:24
--- NOTE | 2021-12-17 20:12 | RAD ---
XR CHEST 2V, XR ABDOMEN 1V History: Reason: SWALLLOWED A MAGNET / Spl. Instructions: / History: Technique: AP and lateral view of the chest and supine views of the abdomen. Comparison: October 20, 2021 Findings: No consolidation or pleural effusion. No pneumothorax. Normal heart size. Right-sided chest wall stim ulator device, unchanged. Rounded metallic foreign bodies projecting over the mid gastric body to larger rounded metallic lionel s measure 2.1 x 1.2 cm and immediately posterior and lateral view of the chest additional rounded for eign body measures 1.4 x 0.7 cm. Smaller metallic foreign bodies between. Mild small bowel gas. Air and stool scattered throughout the imaged colon. Postop changes right pelvi s. Surgical clips right upper quadrant. Impression: 1. Two rounded metallic foreign bodies projecting over the mid gastric body with adjacent metallic c lindsey. Electronically signed by: Wade Larry DO (12/17/2021 8:10 PM) [facility]
== END 2021-12-17 21:37 | disposition home or self-care (01) ==
LOC: ER 19:33
DX: T18.8XXA Foreign body in other parts of alimentary tract, initial encounter (principal); M19.90 Unspecified osteoarthritis, unspecified site; F41.9 Anxiety disorder, unspecified; F31.9 Bipolar disorder, unspecified; J44.9 Chronic obstructive pulmonary disease, unspecified; E11.9 Type 2 diabetes mellitus without complications; M79.7 Fibromyalgia; K21.9 Gastro-esophageal reflux disease without esophagitis; E78.00 Pure hypercholesterolemia, unspecified; I10 Essential (primary) hypertension; F17.210 Nicotine dependence, cigarettes, uncomplicated; Z87.442 Personal history of urinary calculi; Z87.440 Personal history of urinary (tract) infections; Z90.49 Acquired absence of other specified parts of digestive tract; Z90.722 Acquired absence of ovaries, bilateral; Z88.6 Allergy status to analgesic agent; Z88.1 Allergy status to other antibiotic agents; Z88.8 Allergy status to other drugs, medicaments and biological substances; Z91.013 Allergy to seafood; X58.XXXA Exposure to other specified factors, initial encounter; Y93.89 Activity, other specified; Y92.89 Other specified places as the place of occurrence of the external cause; Y99.8 Other external cause status
CPT/HCPCS: 71046; 74018; 99284

== ENCOUNTER 2022-01-10 12:08 | Emergency (ER) | payer BC ==
[~2022-01-10] VITALS: Ht 165.1 cm; Wt 85.0 kg
[~2022-01-10 12:08] MED LIST changes: +BUPR100T16 PO; -BUPR100T8 PO
[2022-01-10 12:16] VITALS: BP 106/78
--- NOTE | 2022-01-10 12:21 | PHYS DOC ---
Past History Past Medical History: Anxiety, Arthritis, Bipolar, Cancer, COPD, Depression, Diverticulitis, Diabetes, Fibromyalgia, Gallstones, GERD, High Cholesterol, Hypertension, Kidney Stones, Liver Disease, Pancreatitis, UTI, Other Additional Past Medical Histor: RODRIGUEZ; gastricportal htn; hypobetalipoproteinemia;cervical canc;sleep apnea Past Surgical History: Cholecystectomy, Oophorectomy Additional Past Surgical Histo: hernia, ankle;stimulator for sleep apnea;breast reduction Smoking: Cigarettes, Less than 1pk/day Alcohol Use: None Drug Use: None Adult General Chief Complaint Chief Complaint: MECHANICAL FALL HPI HPI Patient is a 41-year-old female with multiple medical issues who presents with a chief complaint of musculoskeletal pain after falling down the stairs at home. States she fell, after catching her foot and tripping down some stairs at home. Endorses right and left elbow pain, 5 out of 10, left hip, 6 out of 10 dull and achy in nature and some tailbone pain 5 out of 10. Denies any head injuries, loss of consciousness, changes in vision, numbness/weakness/tingling. Denies any trouble sitting, standing or walking. Did not take any medications. Review of Systems Review of Systems Review of systems otherwise unremarkable except noted in HPI Allergies Allergies Allergies Coded Allergies Type Severity Reaction Last Updated Verified NSAIDS (Non-Steroidal Anti-Inflamma Allergy Intermediate 11/09/21 Yes ketorolac Allergy Intermediate Itching 11/09/21 Yes levofloxacin Allergy Intermediate 11/09/21 Yes shellfish derived Allergy Intermediate Swelling 11/09/21 Yes vancomycin Allergy Intermediate 11/09/21 Yes acetaminophen Adverse Reaction Severe 11/09/21 Yes Physical Exam Physical Exam Constitutional: Well developed, well nourished, no acute distress, non-toxic appearance. [] HENT: Normocephalic, atraumatic, bilateral external ears normal, oropharynx moist, no oral exudates, nose normal. [] Eyes: PERRLA, EOMI, conjunctiva normal, no discharge. [] Neck: Normal range of motion, no tenderness, supple, no stridor. [] Cardiovascular:Heart rate regular rhythm, no murmur [] Lungs & Thorax: Bilateral breath sounds clear to auscultation [] Abdomen: Bowel sounds normal, soft, no tenderness, no masses, no pulsatile masses. [] Skin: Warm, dry, no erythema, no rash. [] Back: Tenderness around coccyx with no obvious bruising or deformities, no spinal midline tenderness throughout with no bruising, step-offs or deformities. Range of motion appropriate. Extremities: Neurovascular exam intact. Some tenderness at left and right elbow on palpation/passive and active range of motion with no obvious bruising, deformities. Endorses some tenderness around left hip with no obvious bruising or deformities Neurologic: Alert and oriented X 3, normal motor function, normal sensory function, able to sit, stand and walk without issue no focal deficits noted. [] Psychologic: Affect normal, judgement normal, mood normal. [] EKG EKG [] Radiology/Procedures Radiology/Procedures [] Heart Score C/O Chest Pain: No Risk Factors: Risk Factors: DM, Current or recent (<one month) smoker, HTN, HLP, family history of CAD, obesity. Risk Scores: Risk Factors: DM, Current or recent (<one month) smoker, HTN, HLP, family history of CAD, obesity. Course & Med Decision Making Course & Med Decision Making Patient is 41-year-old female presents with musculoskeletal complaints after falling down some stairs Vital signs nonconcerning. Physical exam noted above. Given Tylenol, Benadryl, Lidoderm patch and ice packs Imaging with no acute osseous abnormalities. Given 1 oxycodone at patient's request. Discussed symptom treatment at home Advised to follow-up in the morning with primary care physician. Gave return precautions to the ED. Patient grateful, verbalized understanding and agreed with plan of discharge Dragon Disclaimer Dragon Disclaimer This electronic medical record was generated, in whole or in part, using a voice recognition dictation system. Departure Departure: Impression: Primary Impression: Fall Additional Impressions: Elbow pain Back pain Disposition: HOME / SELF CARE / HOMELESS Condition: STABLE Referrals: PDERO PABLO JORDAN MD (PCP) Patient Instructions: Fall Prevention and Home Safety, RICE - Routine Care for Injuries Additional Instructions: Fever coming into the emergency department tonight and allowing us to take care of you. Please read all the attached information carefully to go over things we discussed. You can continue Tylenol, Benadryl and ice packs as needed at home. Please follow-up first thing tomorrow with your primary care physician update on your ED visit and set up a follow-up visit. Please come back with new or concerning symptoms as we discussed. Problem Qualifiers LUKAS TRAVIS MD Jan 10, 2022 12:21
[2022-01-10] MEDS ORDERED: ACETAMINOPHEN 500 MG TABLET PO ONE (12:30)
[2022-01-10] MEDS ORDERED: diphenhydrAMINE HCL 25 MG CAPSULE PO ONE (12:30)
--- NOTE | 2022-01-10 12:54 | RAD ---
Study: 1. XR ELBOW COMPLETE_LEFT 3+VIEWS 2. XR ELBOW COMPLETE_RIGHT 3+ VIEWS Indication: Fall. Comparison: None. Findings: No acute fracture at either elbow. Alignment is anatomic. Maintained joint spaces. No large elbow dequan nt effusion on the right or left. Impression: No fracture, malalignment or significant joint effusion at the right or left elbows. Electronically signed by: LUIZ ACOSTA MD (01/10/2022 12:51 PM) [facility]
--- NOTE | 2022-01-10 12:59 | RAD ---
Study: 1. XR HIP (WITH OR WITHOUT PELVIS) 1 VIEW 2. XR SACRUM AND COCCYX 2+VIEWS Indication: Fall. Comparison: CT abdomen/pelvis 10/18/2021 Findings: Sacrum/coccyx: Continuous sacral arcuate lines. No sacral or coccygeal fracture seen on the lateral view. The partia lly assessed lumbar spine is within normal limits. Mild sacroiliac joint arthrosis slightly greater o n the left. Pelvis/hips: Anatomic alignment across the sacroiliac joints, pubic symphysis and hips. No acute fracture at eithe r hip. Maintained joint space height. Mild arthrosis at the pubic symphysis. Impression: Sacrum/coccyx and pelvis: 1. No radiographic evidence for an acute fracture. 2. No significant arthrosis at the hips. Maintained joint space height. 3. 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 Electronically signed by: LUIZ ACOSTA MD (01/10/2022 12:57 PM) [facility]
[2022-01-10] MEDS ORDERED: oxyCODONE IR 5 MG TABLET PO PRN (13:30)
[2022-01-10] MEDS ORDERED: PATCH REMOVAL. MC SCH (21:00)
[2022-01-11] MEDS ORDERED: LIDOCAINE (700MG/PATCH) PATCH. TD SCH (09:00)
== END 2022-01-10 13:40 | disposition home or self-care (01) ==
LOC: ER 12:08
DX: M25.522 Pain in left elbow (principal); M25.552 Pain in left hip; M53.3 Sacrococcygeal disorders, not elsewhere classified; M25.521 Pain in right elbow; F41.9 Anxiety disorder, unspecified; M19.90 Unspecified osteoarthritis, unspecified site; F31.9 Bipolar disorder, unspecified; J44.9 Chronic obstructive pulmonary disease, unspecified; E11.9 Type 2 diabetes mellitus without complications; M79.7 Fibromyalgia; K21.9 Gastro-esophageal reflux disease without esophagitis; E78.00 Pure hypercholesterolemia, unspecified; I10 Essential (primary) hypertension; F17.210 Nicotine dependence, cigarettes, uncomplicated; Z87.440 Personal history of urinary (tract) infections; Z87.442 Personal history of urinary calculi; Z90.49 Acquired absence of other specified parts of digestive tract; Z90.722 Acquired absence of ovaries, bilateral; Z88.6 Allergy status to analgesic agent; Z88.1 Allergy status to other antibiotic agents; Z88.8 Allergy status to other drugs, medicaments and biological substances; Z91.013 Allergy to seafood; W10.8XXA Fall (on) (from) other stairs and steps, initial encounter; Y93.89 Activity, other specified; Y92.89 Other specified places as the place of occurrence of the external cause; Y99.8 Other external cause status
CPT/HCPCS: 72220; 73080; 73521; 99284